=== PATIENT | male | born 1945 | race Caucasian/White ===

== ENCOUNTER → 2017-08-12 10:34 | Outpatient (CLI) | payer MEDICARE, OTHER, SELFPAY ==
[2017-08-12 10:45] LABS: Squamous Epithelial Cells - UA 0 SEEN /hpf (0-5); White Blood Cells 0 SEEN /hpf (0-5)
--- NOTE | 2017-08-12 10:53 | RAD_ITS ---
STUDY: X-RAY CHEST REASON FOR EXAM: Male, 71 years old. Shortness of breath TECHNIQUE: PA and lateral views of the chest. COMPARISON: Previous study of December 24, 2016 FINDINGS: The left hemidiaphragm is elevated. The lungs are clear. There is no demonstrated pleural abnormality. Normal size heart. Normal mediastinum and itzel. Normal visualized pulmonary arteries. There are calcified plaques of the aortic arch. Normal visualized thoracic spine. Normal visualized ribs, clavicles, and shoulders. There is no demonstrated abnormality of the visualized soft tissue structures of the upper abdomen. RAD/Chest PA and Lateral IMPRESSION: Elevated left hemidiaphragm. Calcified plaques of the aortic arch. No acute cardiopulmonary disease process is seen. Chest findings are stable in the interval. Electronically Signed: Salbador Mcmullen MD at 19:22 EDT , Service support ,
[2017-08-12 12:03] LABS: Absolute Lymphocyte Count 2.92 X10^3/ul (0.83-4.51); Absolute Neutrophil Count 2.6 X10^3/uL (2.0-7.7); Basophil# 0.02 X10^3/uL; Basophil% 0.3 % (0-1); Eosinophil# 0.09 X10^3/uL; Eosinophils% 1.5 % (0-5); Hematocrit 41.7 % (40-54); Hemoglobin 13.5 g/dl (13.0-16.5); Lymphocyte # 2.92 X10^3/ul (4.0); Lymphocyte % 47.8 % (19-41); Mean Corp Hgb Conc 32.4 g/gl (32-36); Mean Corpuscular Hgb 31.8 pg (27.0-32.0); Mean Corpuscular Volume 98.3 fL (80-94); Mean Platelet Vol. 10.3 fl (6.2-12.0); Monocyte# 0.46 X10^3/uL; Monocyte% 7.5 % (0-10); Neutrophil # 2.61 X10^3/uL (2.7-7.7); Neutrophil % 42.7 % (47-70); Platelet Count 219 K/mm3 (150-450); RBC Distribution Width SD 46.6 fl (35.1-43.9); Red Blood Count 4.24 M/mm3 (4.6-6.2); White Blood Count 6.1 K/mm3 (4.4-11.0)
[2017-08-12 12:05] LABS: POSITIVE COUNT NO; POSITIVE DIFFERENTIAL NO; POSITIVE MORPHOLOGY NO
[2017-08-12 12:36] LABS: Color, Urine Yellow (Yellow); Glucose, Dipstick Normal (Normal); Ketone-Dipstick Negative (Negative); Leukocyte Esterase-Dipstick Negative /ul (Negative); Nitrite-Dipstick Negative (Negative); Occult Blood-Urine 10 /ul (Negative); Protein-Dipstick 30 mg/dl (Negative); Urine Bilirubin Dipstick Negative (Negative); Urine Clarity Sl. Cloudy (Clear); Urine Urobilinogen Normal (Normal)
[2017-08-12 12:41] LABS: AST(SGOT) 39 U/L (15-37); Alanine Aminotransfer ALT/SGPT 38 U/L (16-61); Albumin, Serum 3.8 g/dL (3.2-5.0); Alkaline Phosphatase 77 U/L (45-117); Anion Gap 9 (5-15); BUN 25 mg/dL (7-18); BUN/Creat Ratio 23.6 RATIO (10-20); Calcium,Total 8.5 mg/dL (8.5-10.1); Chloride 109 mmol/L (98-107); Cholesterol 198 mg/dL (200); Creatinine, Serum 1.06 mg/dL (0.70-1.30); EST Glomerular Filtration Rate 74 mL/min (>60); Est Glom Filt Rate - Afr Amer 89 mL/min (>60); Globulin 3.9 g/dL (2.2-4.2); Glucose 95 mg/dL (74-106); High Density Lipoprotein 46 mg/dL; Magnesium 2.4 mg/dL (1.6-2.6); Potassium 3.8 mmol/L (3.5-5.1); Protein, Total 7.7 g/dL (6.4-8.2); Sodium Level 141 mmol/L (136-145); Triglycerides 77 mg/dL; Very Low Density Lipoprotein 15 mg/dL (5-40)
[2017-08-12 12:56] LABS: Red Blood Cells-Urine 0-5 SEEN /hpf (0-5)
[2017-08-12 12:57] LABS: Bacteria RARE /hpf (None Seen); Hyaline Cast 0-5 SEEN /lpf (0-5); Mucous, Urine 1+ /hpf (<or=2+)
[2017-08-13 09:26] LABS: T4 Free Direct 0.89 ng/dL (0.76-1.46)
[2017-08-16 17:35] LABS: Anti-Thyroglobulin AB < 1.0 IU/mL (0.0-0.9); Thyroglobulin, Serum Qt. 19.5 ng/mL (1.4-29.2); Thyroid Peroxidase AB 20 IU/mL (0-34)
== END ==
PROVIDERS: Family Provider Family Medicine; PCP Family Medicine; Visit Provider Family Medicine
DX: R07.9 Chest pain, unspecified (principal); R06.02 Shortness of breath; R94.31 Abnormal electrocardiogram [ECG] [EKG]
CPT/HCPCS: 36415; 71046; 80053; 80061; 81001; 83735; 84432; 84439; 84443; 85025; 86376; 86800

== ENCOUNTER 2017-08-19 06:41 | Day surgery (SDC) | payer MEDICARE, OTHER, SELFPAY ==
[2017-08-19 06:39] VITALS: BMI 29.0
--- NOTE | 2017-08-19 08:05 | CL.D_ITS ---
Patient Name: SILVIA URIBE Study Date: 08/19/2017 Performing: Dougie Mary MD Ht: 68.89 inches 175 cm : 1945 Wt: 196.21 lbs 89 kg Age: 71 Gender: male BSA: 2.05 PROCEDURE(S) PERFORMED FE13-KSL/COR/LV CLINICAL PROFILE AND INDICATIONS Indications: Suspected CAD Heart Failure: None Stress/Imaging Stress/Image Study Performed: No CAD Presentations: Symptom unlikely to be ischemic. CONCLUSIONS Normal coronary arteries Normal LV size, wall motion,and systolic function RECOMMENDATIONS Medical therapy Echo to asses valve. DESCRIPTION OF PROCEDURE The patient arrived to the procedure lab. The risks and benefits of the procedure as well as a full d escription of our services here and current unavailability of surgical backup were fully explained to the patient and/or their significant other prior to the catheterization. The Timeout was completed, verifying the correct patient and procedure. The patient's procedural site was prepped and draped in the usual fashion. Local anesthetic was given subcutaneously to right radial region with Lidocaine 2% . Using a modified Seldinger technique, arterial access was obtained via the right radial artery, a 6 Fr sheath was inserted. Right Coronary Artery selective angiography was then performed in multiple v iews using a 5 Fr. 4.0 Gary catheter. Left Coronary Artery selective angiography was performed in mu ltiple views using a 5 Fr. JL3.5 catheter. Left Ventriculography was performed in EARL projection usin g a 5 Fr. Pigtail catheter. LV to AO pullback pressures were then recorded.The arterial sheath was pu lled and a TR Band was applied for hemostasis 18 cc's of air CORONARY ANGIOGRAPHY DOMINANCE: Right Dominant LEFT HEART ASSESSMENT Left Ventricular Ejection Fraction: by LV Gram 60 % Normal LV wall motion Normal Left Ventricular systolic function Normal Left Ventricular systolic function LEFT MAIN: Angiographically normal LEFT ANTERIOR DECENDING ARTERY: Angiographically normal CIRCUMFLEX ARTERY: Angiographically normal RIGHT CORONARY ARTERY: Angiographically normal COMPLICATIONS No Complications PROCEDURE MEDICATIONS Versed 1 mg IV Fentanyl 50 mcg IV Oxygen: 2 L/min via nasal cannula Heparin diluted in 23cc Heparinized saline. Patient given 10cc IA of this solution. 08/19/2017 07:34: 46 Verapamil 2.5mg, Ntg 100mcgs, 2000 units of Heparin diluted in 23cc Heparinized saline. Patient give n 10cc IA of this solution. 08/19/2017 07:34:46 SUMMARY OF HEMODYNAMIC DATA Time AIR REST ECG 07:01:57 AO 85/57 (69) SA 07:38:38 AO 92/63 (76) 07:38:58 LV 109/7, 17 07:51:40 LV 113/7, 22 07:51:49 LV 110/6, 21 07:53:23 LV 110/6, 23 07:53:30 LVp 108/5, 20 07:53:35 AOp 115/65 (88) 07:53:40 Signed By Dougie Mary MD On 08/19/2017 08:04:15 Dougie Mary MD
--- NOTE | 2017-08-19 08:28 | ECHOCS_ITS ---
Reason For Study: ABNORMAL EKG Procedure This was a 2D Doppler, Color Flow transthoracic echocardiogram. The study was technically difficult. Exam performed in department. Left Ventricle Normal LV size. Left ventricular systolic function is normal. The estimated ejection fraction is 65 %. No evidence for diastolic dysfunction. No regional wall motion abnormalities noted. Right Ventricle Normal RV size. Normal systolic function. Atria Normal left atrium. Normal right atrium. Mitral Valve Normal mitral valve. Tricuspid Valve Normal tricuspid valve. Aortic Valve The aortic valve is not well visualized. Pulmonic Valve The pulmonic valve is not well visualized. Great Vessels Normal aortic root. The pulmonary artery is normal size. Normal inferior vena cava. Pericardium/Pleural No pericardial effusion. Medication Diluted definity 3.5ml given slow IV push to enhance endocardial definition. MMode/2D Measurements & Calculations LVIDd: 3.9 cm IVSd: 1.0 cm Ao root diam: 3.6 cm LVIDs: 3.0 cm LVPWd: 1.1 cm LA dimension: 2.2 cm FS: 23.8 % LAV(MOD-bp): 26.6 ml LAV(MOD-bp) Indexed: 13.2 ml/m2 LA A4 area: 11.3 cm2 LAV(MOD-sp2): 28.0 ml LAV(MOD-sp4): 24.0 ml Time Measurements MV dec time: 0.18 sec Doppler Measurements & Calculations MV E max jona: 92.2 cm/sec Lat Peak E' Jona: 10.2 cm/sec Med Peak E' Jona: 11.3 cm/sec MV A max jona: 74.0 cm/sec E/E' lat: 9.0 E/E' med: 8.2 MV E/A: 1.2 Ao V2 max: 114.3 cm/sec LV V1 max: 100.4 cm/sec PA V2 max: 109.3 cm/sec Ao max P.2 mmHg LV V1 max P.0 mmHg Interpretation Summary Normal LV size. Left ventricular systolic function is normal. The estimated ejection fraction is 65 %. No evidence for diastolic dysfunction. Contrast injection was performed. Ordering Physician: Dougie Mary Referring Physician: DELMA BLAND Performed By: Briana Mott RDCS
== END 2017-08-19 12:00 | disposition home or self-care (01) ==
PROVIDERS: Family Provider Family Medicine; PCP Family Medicine; Visit Provider Internal Medicine Cardiovascular Disease
DX: R07.9 Chest pain, unspecified (principal); R06.02 Shortness of breath; E03.9 Hypothyroidism, unspecified; M54.9 Dorsalgia, unspecified; G89.29 Other chronic pain; Z79.82 Long term (current) use of aspirin; Z79.899 Other long term (current) drug therapy; Z87.891 Personal history of nicotine dependence
CPT/HCPCS: 93306; 93458; 99152; 99153; J7040; Q9957; A4216; C1769; C1894; C8929

== ENCOUNTER → 2017-08-31 11:29 | Outpatient (CLI) | payer MEDICARE, OTHER, SELFPAY ==
[2017-08-31 15:56] LABS: AST(SGOT) 26 U/L (15-37); Alanine Aminotransfer ALT/SGPT 27 U/L (16-61); Albumin, Serum 3.8 g/dL (3.2-5.0); Alkaline Phosphatase 68 U/L (45-117); Bilirubin, Direct 0.07 mg/dL (0.00-0.30); Globulin 3.4 g/dL (2.2-4.2); Protein, Total 7.2 g/dL (6.4-8.2)
[2017-09-02 08:10] LABS: HEPATITIS B SURFACE AG Negative (Negative); Hep B Surface Antibodies Non Reactive (.); Hep C Antibodies 0.1 s/co ratio (0.0-0.9)
== END ==
PROVIDERS: Family Provider Family Medicine; PCP Family Medicine; Visit Provider Family Medicine
DX: E03.9 Hypothyroidism, unspecified (principal); R94.5 Abnormal results of liver function studies
CPT/HCPCS: 36415; 80076; 84443; 86706; 86803; 87340

== ENCOUNTER 2017-09-08 15:52 | Emergency (ER) | payer MEDICARE, OTHER, SELFPAY ==
[2017-09-08 15:53] VITALS: BP 144/78; PULSE 88; RESP 18; TEMP 36.3; O2SAT 96; BMI 28.5
[2017-09-08] MEDS: morphine 10 MG/ML Syringe IM (16:27)
--- NOTE | 2017-09-08 16:28 | ED.DCSUM_ITS ---
- ER Visit Summary Date of Service: 09/08/17 Chief Complaint: Back pain History of Present Illness: The patient is a 71 M with a 1-1/2-2 week history of mild left low back strain. Patient states he had been doing a lot of yard work. He has a history of L5-S1 fusion. Yesterday he felt better so he was working on a ladder for several hours. Patient states last evening pain worsened and he had difficulty finding a position of comfort. He will get occasional radiation of pain down into the left groin. He has increased pain when he flexes his left hip. He denies paresthesias. Patient takes Flexeril 3 times daily as needed. He has been taking that since last evening and also took one half doses of hydrocodone 10 mg in the last 24 hours. This was left over from a prior prescription and is not sure how old the prescription may be. He had no direct injury to his back. He denies problems with bowel or bladder control. He does not have paresthesias. Physical Examination: Vital signs are unremarkable. Patient is standing upright in the room. He appears uncomfortable but no acute distress. Head neck examination unremarkable. Heart is regular rate and rhythm. Lung sounds are clear. Abdomen is soft and nontender. Do not appreciate any masses. Back examination reveals reproducible tenderness in the left lower lumbar paraspinals. He does have good strength and sensation the lower extremities. He is able to stand on his toes and heels. Test Results: [] Emergency Department Course and Treatment:Patient is given 10 mg of IM morphine. After 25 minutes patient states he started to feel some improvement. He still has significant pain when he tries to sit. He will be given a new prescription for Flexeril as he only has a few tabs left. He will be given a prescription for Percocet. He has an allergy to naproxen but states he can take aspirin. He will continue this at home. Treatment Plan: [] Disposition: Discharge Impression: Lumbar paraspinal strain with spasm This note was generated with [employer] dictation software. It may contain incorrect words, spelling, and punctuation that were not noted in review of the chart prior to signing ED Disposition - Plan for ED Patient: Chief Complaint: Back Referrals: Edu Glover MD [Primary Care Provider] -
--- NOTE | 2017-09-08 16:54 | ED.DEP ---
ED Disposition - Plan for ED Patient: Disposition: Home or Assisted Living Chief Complaint: Back Instructions: ED Spasm Back No Trauma, ED Sprain Strain Lumbar Prescriptions: Oxycodone HCl/Acetaminophen [Percocet 5/325] 1 tablet PO Q4H PRN PRN 5 Days #20 tablet PRN Reason: Pain Cyclobenzaprine [Flexeril] 0.5 - 1 tab PO TID PRN #20 tab PRN Reason: Muscle Spasm Referrals: Edu Glover MD [Primary Care Provider] - 5-7 Days
[2017-09-08 17:22] VITALS: BP 117/80; PULSE 74; RESP 12; O2SAT 95
== END 2017-09-08 17:24 | disposition home or self-care (01) ==
PROVIDERS: Emergency Provider Emergency Medicine; Family Provider Family Medicine; PCP Family Medicine
DX: S39.012A Strain of muscle, fascia and tendon of lower back, initial encounter (principal); M62.830 Muscle spasm of back; X58.XXXA Exposure to other specified factors, initial encounter; Y93.H2 Activity, gardening and landscaping; Y92.9 Unspecified place or not applicable; Y99.9 Unspecified external cause status; Z79.82 Long term (current) use of aspirin; Z79.899 Other long term (current) drug therapy
CPT/HCPCS: 96372; 99282

== ENCOUNTER → 2017-09-14 12:13 | Outpatient (CLI) | payer MEDICARE, OTHER, SELFPAY ==
--- NOTE | 2017-09-14 12:16 | RAD_ITS ---
STUDY: X-RAY - LUMBAR SPINE REASON FOR EXAM: Male, 71 years old. Low back pain TECHNIQUE: 5 view(s) of the lumbar spine were obtained. COMPARISON: None FINDINGS: There is an exaggerated lumbar lordosis. There is no substantial scoliosis. There is a normal alignment of the vertebrae. There is multilevel endplate spondylosis of the lumbar vertebrae. Posterior fusion with artificial intervertebral disc spacer at L5-S1. There is no demonstrated fracture. There is atherosclerotic calcification of the abdominal aorta without a demonstrated aneurysm. RAD/L/S Spine Min 4 Views IMPRESSION: Degenerative changes and postsurgical changes. No acute findings Electronically Signed: Thierry Nj DO at 12:35 EDT Tel , Service support ,
== END ==
PROVIDERS: Family Provider Family Medicine; PCP Family Medicine; Visit Provider Family Medicine
DX: M54.10 Radiculopathy, site unspecified (principal)
CPT/HCPCS: 72110

== ENCOUNTER → 2017-09-16 06:22 | Outpatient (CLI) | payer MEDICARE, OTHER, SELFPAY ==
--- NOTE | 2017-09-16 06:34 | MRI_ITS ---
STUDY: MRI LUMBAR SPINE WITHOUT CONTRAST REASON FOR EXAM: Male, 71 years old. radicular pain, left leg pain, prior surgery 2006 anterior Tamp; posterior fusion TECHNIQUE: Standardized fat and water weighted pulse sequences were obtained in the sagittal and axial planes. COMPARISON: None FINDINGS: T12-L1: Normal endplates. Normal disc height, hydration and morphology. Normal bilateral facet joints. Normal central canal and bilateral lateral recesses. Normal bilateral intervertebral neural foramina. Normal lumbar lordosis. There is no substantial scoliosis. Normal conus medullaris that terminates at the T12-L1 level. Bilateral posterior pedicle fusions at L5 and S1. The L5-S1 disc space has been fused. L1-2: Normal endplates. Normal disc height, hydration and morphology. Normal bilateral facet joints. Normal central canal and bilateral lateral recesses. Normal bilateral intervertebral neural foramina. L2-3: A left subarticular caudally migrating disc extrusion is present that measures 2 cm craniocaudal by 1.2 cm wide by 0.7 cm anteroposterior. This is associated with significant lateral recess stenosis at the L3 level. There is mass effect on the transiting left L3 nerve root. Bulging annulus with mild bilateral foraminal stenoses. L3-4: Bulging annulus and bilateral facet and ligamentum flavum hypertrophy with mild left lateral recess stenosis and bilateral foraminal stenoses. L4-5: Central annular fissure and bilateral facet hypertrophy with moderate right and mild left foraminal stenoses. L5-S1: No significant residual compressive sequelae is seen. Normal visualized sacral ala. Normal visualized paraspinous soft tissue structures. Right renal cyst. MRI/Spine Lumbar (Routine) IMPRESSION: Multiple degenerative and postoperative changes as described. L2-3, a disc extrusion is present on the left with mass effect on the transiting left L3 nerve root. Electronically Signed: Joe Whitten MD at 7:38 EDT Tel , Service support ,
== END ==
PROVIDERS: Family Provider Family Medicine; PCP Family Medicine; Visit Provider Family Medicine
DX: M54.10 Radiculopathy, site unspecified (principal)
CPT/HCPCS: 72148

== ENCOUNTER → 2017-10-11 13:11 | Outpatient (CLI) | payer MEDICARE, OTHER, SELFPAY ==
[2017-10-11 14:28] LABS: T4 Total, Thyroxin 13.2 ug/dL (4.5-12.1); Thyroid Stim Hormone (TSH) 3.61 uIU/mL (0.358-3.74)
== END ==
PROVIDERS: Family Provider Family Medicine; PCP Family Medicine; Visit Provider Family Medicine
DX: E03.9 Hypothyroidism, unspecified (principal)
CPT/HCPCS: 36415; 84436; 84443

== ENCOUNTER 2017-11-05 12:41 | Day surgery (SDC) | payer MEDICARE, OTHER, SELFPAY ==
[2017-11-05] VITALS (7 sets, daily range): BP systolic 105–127; BP diastolic 48–89; PULSE 71–86; RESP 14–16; TEMP 36.2–36.4; O2SAT 96–99; BMI 27.6
[2017-11-05] MEDS: Triamcinolone Acetonide 40 MG/ML Vial (13:31)
--- NOTE | 2017-11-05 13:45 | RAD_ITS ---
STUDY: X-RAY - LUMBAR SPINE REASON FOR EXAM: Male, 71 years old. Transforaminal block on the left at L2-3 and L3-4 TECHNIQUE: 7 fluoroscopic spot view(s) of the lumbar spine were obtained. 32.8 seconds fluoroscopy time. COMPARISON: None FINDINGS: 2 spinal needles are noted at 2 levels unilaterally. RAD/Lumbar Spine 2 or 3 Views IMPRESSION: Please correlate with clinical service. Electronically Signed: Jordon Linton MD at 18:20 EDT , Service support ,
--- NOTE | 2017-11-05 14:32 | DCINST_ITS ---
- Discharge Diagnoses Current Active Problems: Lower back pain and lumbar radiculopathy Postlaminectomy syndrome lumbar region Reason(s) for Visit for Discharge Instructions: Left L2-3 and L3-4 lumbar transforaminal/selective nerve root block injection under fluoroscopy guidance You will use the following diet at home:: No restrictions Your food should be the consistency of: Regular Discharge Activity: Return to Normal Activity Call your doctor if your incision/area has: Continuous Slow Oozing, Sudden Increased Bleeding, Increased Pain/ Swelling, Swelling at the incision site Call your doctor if you observe: Uncontrolled pain Suture Line Care: Avoid Pulling/Pushing, Avoid Pinching/Bending Cleanse incision/area with: Soap & Water Allergies/Adverse Reactions: Allergies naproxen [From Naprosyn] Adverse Reaction (Verified 11/04/17 09:44) agitation decongest Adverse Reaction (Uncoded 11/04/17 09:44) unknown Medications to take at Discharge aspirin 81 mg tablet,delayed release 81 mg PO QDAY 08/18/17 cyclobenzaprine 5 mg tablet 5 mg PO TID PRN 08/18/17 RX: Levothyroxine [Synthroid] 75 mcg PO DAILY 09/08/17 Celecoxib [Celebrex] 100 mg PO BID 11/04/17 Fluticasone 0.05% [Flonase Nasal [place]] 1 spray NASAL DAILY 11/04/17 Primary Care Physician: Edu Glover MD [Primary Care Provider] - Test Results: Test results from this visit will be discussed in further detail at your follow- up appointment, if applicable. Please Follow Up With: Clint Klein MD
--- NOTE | 2017-11-05 14:32 | PCM.OPRPT ---
Problem List (1) Postlaminectomy syndrome, not elsewhere classified Status: Acute (2) Postlaminectomy syndrome, not elsewhere classified Status: Acute (3) Radiculopathy of lumbar region Status: Acute (4) Radiculopathy of lumbar region Status: Acute (5) Intervertebral disc disorder with radiculopathy of lumbar region Status: Acute (6) Intervertebral disc disorder with radiculopathy of lumbar region Status: Acute Report of Operation Date of Procedure: 11/05/17 Pre-Operative Diagnosis: Lumbar radiculopathy. Lumbar disc displacement and foraminal stenosis. Lumbar postlaminectomy syndrome Post-Operative Diagnosis: Same Surgery/Procedure Performed:: Left side L2-3 and L3-4 lumbar transforaminal epidural steroid injection under fluoroscopy/selective nerve root at 2 levels L2-3 and L3-4 on the left side Description of Surgical Findings:: Under sterile conditions. Patient placed in the prone position, pressure points were padded, patient was ready from the nursing and the anesthesia team. After identification of the side and the target area for the block under guided fluoroscopy, the entry site was marked with marking pen. I used Betadine for sterilization of the skin, sterile draping were applied. Using 25-gauge needle to infiltrate the skin with local anesthesia using preservative-free lidocaine 0.5% injected 2.5 mL at site of entry. Using guided fluoroscopy, accessed the the lateral foraminal epidural space using 22-gauge spinal needles under lateral oblique fluoroscopy approach, accessed the site was assisted with lateral and AP fluoroscopy, followed by using [id number] technique using preservative-free normal saline, negative aspiration of CSF and blood. Position confirmed with injection of contrast solution and patient reported no pain on the injection time Injected contrast solution [2.5] mL under live fluoroscopy which showed good spread of the contrast to the posterior lateral foraminal epidural space and to the targeted area of the injection at left L2-3 and L3-4. Injected [2.5] mL of mixture of preservative-free lidocaine and Kenalog [40] mg each site for the procedure which showed appropriate spread in the lateral left epidural space and throughout the left L2-3 L3 IV nerve distribution. Has intact neurological function after the procedure at his baseline [place] was removed, pressure dressing were applied. Patient tolerated the procedure well and was taken to the recovery. Type of Anesthesia:: Local MAC, MAC Specimen's removed: None
--- NOTE | 2017-11-05 14:36 | OP.PCM_ITS ---
Problem List (1) Postlaminectomy syndrome, not elsewhere classified Status: Acute (2) Postlaminectomy syndrome, not elsewhere classified Status: Acute (3) Radiculopathy of lumbar region Status: Acute (4) Radiculopathy of lumbar region Status: Acute (5) Intervertebral disc disorder with radiculopathy of lumbar region Status: Acute (6) Intervertebral disc disorder with radiculopathy of lumbar region Status: Acute Report of Operation Date of Procedure: 11/05/17 Pre-Operative Diagnosis: Lumbar radiculopathy. Lumbar disc displacement and foraminal stenosis. Lumbar postlaminectomy syndrome Post-Operative Diagnosis: Same Surgery/Procedure Performed:: Left side L2-3 and L3-4 lumbar transforaminal epidural steroid injection under fluoroscopy/selective nerve root at 2 levels L2 -3 and L3-4 on the left side Description of Surgical Findings:: Under sterile conditions. Patient placed in the prone position, pressure points were padded, patient was ready from the nursing and the anesthesia team. After identification of the side and the target area for the block under guided fluoroscopy, the entry site was marked with marking pen. I used Betadine for sterilization of the skin, sterile draping were applied. Using 25-gauge needle to infiltrate the skin with local anesthesia using preservative-free lidocaine 0.5% injected 2.5 mL at site of entry. Using guided fluoroscopy, accessed the the lateral foraminal epidural space using 22-gauge spinal needles under lateral oblique fluoroscopy approach, accessed the site was assisted with lateral and AP fluoroscopy, followed by using [id number] technique using preservative-free normal saline, negative aspiration of CSF and blood. Position confirmed with injection of contrast solution and patient reported no pain on the injection time Injected contrast solution [2.5] mL under live fluoroscopy which showed good spread of the contrast to the posterior lateral foraminal epidural space and to the targeted area of the injection at left L2-3 and L3-4. Injected [2.5] mL of mixture of preservative-free lidocaine and Kenalog [40] mg each site for the procedure which showed appropriate spread in the lateral left epidural space and throughout the left L2-3 L3 IV nerve distribution. Has intact neurological function after the procedure at his baseline [place] was removed, pressure dressing were applied. Patient tolerated the procedure well and was taken to the recovery. Type of Anesthesia:: Local MAC, MAC Specimen's removed: None
== END 2017-11-05 15:24 | disposition home or self-care (01) ==
LOC: SDC 12:42 → AC 12:44
PROVIDERS: Family Provider Family Medicine; PCP Family Medicine; Visit Provider Anesthesiology
PROC: 3E0T3BZ Introduction of Anesthetic Agent into Peripheral Nerves and Plexi, Percutaneous Approach (ICD-10-PCS; CPT 64493; principal; 2017-11-05 13:40)
DX: M96.1 Postlaminectomy syndrome, not elsewhere classified (principal); M51.16 Intervertebral disc disorders with radiculopathy, lumbar region; M51.26 Other intervertebral disc displacement, lumbar region; M99.53 Intervertebral disc stenosis of neural canal of lumbar region; G89.4 Chronic pain syndrome; K44.9 Diaphragmatic hernia without obstruction or gangrene; G43.909 Migraine, unspecified, not intractable, without status migrainosus; E06.9 Thyroiditis, unspecified; Z87.442 Personal history of urinary calculi; Z79.82 Long term (current) use of aspirin; Z79.899 Other long term (current) drug therapy; Z87.891 Personal history of nicotine dependence; M54.16 Radiculopathy, lumbar region
CPT/HCPCS: 64493; 64494; 64495; 64483; 72100; J7120; J3490

== ENCOUNTER → 2018-01-11 10:53 | Outpatient (CLI) | payer MEDICARE, OTHER, SELFPAY ==
[2017-11-05 13:01] VITALS: BMI 27.6
[2018-01-11 13:14] LABS: T4 Total, Thyroxin 11.6 ug/dL (4.5-12.1); Thyroid Stim Hormone (TSH) 4.55 uIU/mL (0.358-3.74)
[2018-01-12 19:53] LABS: Anti-Thyroglobulin AB < 1.0 IU/mL (0.0-0.9); Thyroid Peroxidase AB 17 IU/mL (0-34)
== END ==
PROVIDERS: Family Provider Family Medicine; PCP Family Medicine; Visit Provider Family Medicine
DX: E03.9 Hypothyroidism, unspecified (principal)
CPT/HCPCS: 36415; 84432; 84436; 84443; 86376; 86800

== ENCOUNTER 2018-02-08 05:25 | Day surgery (SDC) | payer MEDICARE, OTHER, SELFPAY ==
[2018-02-08 05:47] VITALS: BP 118/70; PULSE 85; RESP 18; TEMP 36.8; O2SAT 93; BMI 27.7
--- NOTE | 2018-02-08 06:16 | HP.PCM_ITS ---
Problem List (1) Screening for intestinal cancer Status: Acute History of Present Illness Date of Admission: 02/08/18 The patient is a 72 year old M who presents for screening colonoscopy. He denies bright red blood per rectum or melena. He states that his father had colon polyps. He states there is no family history of colon cancer. The patient's most recent flexible sigmoidoscopy was 20 years ago. He denies abdominal pain or unexpected weight loss. He otherwise enjoys good health Past Medical History Medical History: Medical History (Last Reviewed 08/18/17 @ 09:23 by Dougie Mary MD) Chronic back pain M54.9, G89.29 Allergies naproxen [From Naprosyn] Adverse Reaction (Verified 02/08/18 05:46) agitation decongest Adverse Reaction (Uncoded 02/08/18 05:46) unknown Home Medications: Ambulatory Orders Medication Instructions Recorded cyclobenzaprine 5 mg tablet 5 mg PO TID PRN 08/18/17 Levothyroxine [Synthroid] 88 mcg PO DAILY 09/08/17 Surgical History: Surgical History (Last Updated 08/19/17 @ 09:23 by Ida Hinkle) History of left heart catheterization (Acute) Onset Date: 08/19/17 Z98.890 08/19/2017 @ [facility] per Dr. Mary: normal coronaries H/O spinal fusion Z98.1 History of arthroscopic knee surgery Z98.890 History of herniorrhaphy Z98.890, Z87.19 Smoking Status: Former smoker Tobacco Use: Non-smoker Review of Systems Constitutional: Denies: Anorexia HEENT: Denies: Difficulty Swallowing Cardiovascular: Denies: Chest Pain, Claudication Respiratory: Denies: Cough Gastrointestinal: Denies: Abdominal Pain, Hematochezia, Melena Neurological: Denies: Balance problems Endocrine: Denies: Change in Body Habitus VTE Information - Inpt Only VTE Present on Admission: No Patient Problems: Active and Suspected Problems (Last Reviewed 08/18/17 @ 09:23 by Dougie Mary MD ) Screening for intestinal cancer (Acute) - Physical Exam General: Alert, Oriented x3, Cooperative, No apparent distress HEENT: Atraumatic Oral: Moist Mucosa Neck: Supple Lungs: Clear to auscultation Cardiovascular: Regular rate, Regular Rhythm Abdomen: Bowel Sounds Present, Soft, Non Tender, Non-Distended Extremities: No clubbing, No Calf Tenderness Psych/Mental Status: Normal Affect Vital Signs Temp Pulse Resp BP Pulse Ox 98.3 F 85 18 118/70 93 02/08/18 05:47 02/08/18 05:47 02/08/18 05:47 02/08/18 05:47 02/08/18 05:47 Oxygen Delivery Method Room Air Weight: 187 lb 12.8 oz Body Mass Index (BMI) 27.7 Assessment/Plan All Active Problems (Last Reviewed 08/18/17 @ 09:23 by Dougie Mary MD) Postlaminectomy syndrome, not elsewhere classified (Acute) Postlaminectomy syndrome, not elsewhere classified (Acute) Radiculopathy of lumbar region (Acute) Radiculopathy of lumbar region (Acute) Intervertebral disc disorder with radiculopathy of lumbar region (Acute) Intervertebral disc disorder with radiculopathy of lumbar region (Acute) Screening for intestinal cancer (Acute) History of left heart catheterization (Acute 08/19/17) Elevated TSH (Acute) Chest pain on exertion (Acute) Dyspnea on exertion (Acute) I am recommended the patient is screening colonoscopy with possible biopsy or polypectomy as indicated. He is aware of the technique, benefits, risks, alternatives. He has had an opportunity to ask and have questions answered. We will proceed as noted. He presents via our open access program today. Sebatsian Mora M.D., F.A.C.S.
--- NOTE | 2018-02-08 06:30 | COLBX_PTH ---
PATIENT: SILVIA URIBE II LOC: EN U#:[id number] AGE/SX: 72/M ROOM: RE02/08/[address]: Dr. Sebastian Mora MD : 1945 BED: DIS: 02/08/2018 SPEC #: [id number] RECD: 02/08/18 09:27 STATUS: AUGUST WAGNER #: [id number] UZMA: 02/08/18 06:[address]: Sebastian Mora DEPT: SURGICAL PATHOLOGY RECD BY: Yung Hubbard ENTERED: 02/08/18 12:02 SP TYPE: COLON BX OTHR DR: Dr. Edu Glover MD Tissues: Cecum, NOS Procedures: Surgery Specimen Level IV HEADER OPERATION: Colonoscopy PRE-OP DIAGNOSIS: Screening TISSUE SUBMITTED: Cecal polyp biopsy MICROSCOPIC DIAGNOSIS Polyp cecum, biopsy: Fragments of tubular adenoma. Fragments of fecal material. SJ:leigh 02/09/18 MICROSCOPIC DESCRIPTION Slides are reviewed. GROSS DESCRIPTION Received in fixative is one container labeled with the patient's name and designated biopsy polyp cecum. The specimen consists of multiple irregular fragments of light valdivia soft tissue mixed with fecal material that in aggregate measure 0.5 x 0.5 x 0.1 cm. The specimen is totally submitted in one cassette. / SJ:leigh 02/08/18 TC:1 CPT: 78637
[2018-02-08 06:50] VITALS: BP 118/70; BP 93/64; PULSE 84; RESP 16; TEMP 35.8; O2SAT 94
--- NOTE | 2018-02-08 06:52 | OP.ENDO_ITS ---
Patient Name: Nacho Nicole Procedure Date: 02/08/2018 6:11 AM Date of : 1945 Age: 72 Procedure: Colonoscopy Indications: Screening for colorectal malignant neoplasm Providers: Sebastian Mora MD Referring MD: Sebastian Mora MD Medicines: See the Anesthesia note for documentation of the administered medications Patient Profile: Last Colonoscopy: more than 10 years ago. Complications: No immediate complications. Procedure: Pre-Anesthesia Assessment: - Prior to the procedure, a History and Physical was performed, and patient medications and allergies were reviewed. The patient's tolerance of previous anesthesia was also reviewed. The risks and benefits of the procedure and the sedation options and risks were discussed with the patient. All questions were answered, and informed consent was obtained. Prior Anticoagulants: The patient has taken no previous anticoagulant or antiplatelet agents. ASA Grade Assessment: II - A patient with mild systemic disease. After reviewing the risks and benefits, the patient was deemed in satisfactory condition to undergo the procedure. After I obtained informed consent, the scope was passed under direct vision. Throughout the procedure, the patient's blood pressure, pulse, and oxygen saturations were monitored continuously. The colonoscope was introduced through the anus and advanced to the cecum, identified by appendiceal orifice and ileocecal valve. The colonoscopy was performed without difficulty. The patient tolerated the procedure well. The quality of the bowel preparation was good. The ileocecal valve was photographed. Scope In: 6:31:24 AM Scope Withdrawal Time 0 hours 10 minutes 55 seconds Scope Out: 6:46:59 AM Total Procedure Duration Time 0 hours 15 minutes 35 seconds Findings: The digital rectal exam findings include internal hemorrhoids that prolapse with straining, but spontaneously regress to the resting position (Grade II) and prostate nodule. A 6 mm polyp was found in the cecum. The polyp was sessile. The polyp was removed with a cold biopsy forceps. Resection and retrieval were complete. Scattered diverticula were found in the sigmoid colon. Impression: - Internal hemorrhoids that prolapse with straining, but spontaneously regress to the resting position (Grade II) and a prostate nodule found on digital rectal exam. Slight nodule on right prostate. Will recommend primary care follow up - One 6 mm polyp in the cecum, removed with a cold biopsy forceps. Resected and retrieved. - Diverticulosis in the sigmoid colon. Recommendation: - Discharge patient to home. - Resume previous diet. - Continue present medications. - Telephone my office for pathology results in 1 week. - Repeat colonoscopy in 3 years for surveillance based on pathology results. Procedure Code(s): --- Professional --- 17629, Colonoscopy, flexible; with biopsy, single or multiple Diagnosis Code(s): --- Professional --- Z12.11, Encounter for screening for malignant neoplasm of colon N40.2, Nodular prostate without lower urinary tract symptoms D12.0, Benign neoplasm of cecum K64.1, Second degree hemorrhoids K57.30, Diverticulosis of large intestine without perforation or abscess without bleeding CPT copyright 2017 [employer]. All rights reserved. The codes documented in this report are preliminary and upon flight technician review may be revised to meet current compliance requirements. Sebastian Mora MD 02/08/2018 6:52:07 AM This report has been signed electronically. Number of Addenda: 0 Note Initiated On: 02/08/2018 6:11 AM
[2018-02-08 06:55] VITALS: BP 118/70; BP 84/55; PULSE 80; RESP 16; O2SAT 97
[2018-02-08 07:00] VITALS: BP 118/70; BP 98/71; PULSE 84; RESP 16; O2SAT 96
[2018-02-08 07:06] VITALS: BP 105/76; BP 118/70; PULSE 85; RESP 16; TEMP 35.9; O2SAT 97
[2018-02-08 07:14] VITALS: BP 118/70
--- OUTSIDE RECORDS SUMMARY | 2018-05-12 11:14 | XMS RPT_ITS ---
:1945 Author Organization [facility] Support Name Relationship Address Phone NICOLE, EVALYNE Unavailable [address] + [place] [address] R Unavailable Unavailable Unavailable NICOLE, EVALYNE Unavailable [address] + [place] [address] R Unavailable Unavailable Unavailable NICOLE, EVALYNE Unavailable [address] + [place] [address] R Unavailable Unavailable Unavailable NICOLE, EVALYNE Unavailable [address] + [place] [address] R Unavailable Unavailable Unavailable NICOLE, EVALYNE Unavailable [address] + [place] [address] R Unavailable Unavailable Unavailable NICOLE, EVALYNE Unavailable [address] + [place] [address] R Unavailable Unavailable Unavailable NICOLE, EVALYNE Unavailable [address] + [place] [address] R Unavailable Unavailable Unavailable NICOLE, EVALYNE Unavailable [address] + [place] [address] R Unavailable Unavailable Unavailable NICOLE, EVALYNE Unavailable [address] + [place] [address] R Unavailable Unavailable Unavailable NICOLE, EVALYNE Unavailable [address] + [place] [address] R Unavailable Unavailable Unavailable NICOLE, EVALYNE Unavailable [address] + [place] [address] R Unavailable Unavailable Unavailable NICOLE, EVALYNE Unavailable [address] + [place] [address] R Unavailable Unavailable Unavailable NICOLE, EVALYNE Unavailable [address] + [place] [address] R Unavailable Unavailable Unavailable NICOLE, EVALYNE Unavailable [address] + [place] [address] R Unavailable Unavailable Unavailable NICOLE, EVALYNE Unavailable [address] + [place] [address] R Unavailable Unavailable Unavailable NICOLE, EVALYNE Unavailable [address] + [place] [address] R Unavailable Unavailable Unavailable Care Team Providers Name Role Phone Sebastian Mora Attending Unavailable Sebastian Mora Referring Unavailable Delma Bland Primary Care Unavailable Sebastian Mora Consulting Unavailable Delma Sainz Attending Unavailable Delma Bland Referring Unavailable Delma Bland Attending Unavailable Delma Bland Primary Care Unavailable Delma Bland Referring Unavailable Tyra, [place] Attending Unavailable Delma Bland Referring Unavailable Delma Bland Primary Care Unavailable Tyra, Dougie Attending Unavailable Tyra, [place] Referring Unavailable Delma Bland Primary Care Unavailable Delma Bland Attending Unavailable Delma Bland Primary Care Unavailable Delma Bland Primary Care Unavailable Julia Mattson Attending Unavailable Delma Bland Attending Unavailable Delma Bland Referring Unavailable Delma Bland Primary Care Unavailable Delma Bland Attending Unavailable Delma Bland Referring Unavailable Delma Bland Primary Care Unavailable Tyra, [place] Attending Unavailable Nurse, Standard Attending Unavailable Delma Bland Referring Unavailable Delma Gonzales Unavailable Delma Gonzales Referring Unavailable Delma Bland Primary Care Unavailable Latoya, Clint Attending Unavailable Clint Klein Referring Unavailable Delma Bland Primary Care Unavailable Delma Bland Attending Unavailable Delma Bland Primary Care Unavailable Nurse, Standard Attending Unavailable Delma Bland Referring Unavailable Sebastian Mora Attending Unavailable Sebastian Mora Referring Unavailable Delma Bland Primary Care Unavailable PROBLEMS PROBLEMS DATE TYPE CONDITION / CODE ATTENDING STATUS SOURCE 09/14/2017 Unknown M54.10 - Delma Bland Active [place] Radiculopathy, site [facility] unspecified / Hospital M54.10(ICD-10) Repository 09/08/2017 Unknown S39.012A - Strain of Mattson, Active [place] muscle, fascia and [facility] tendon of lower back, Hospital initial encounter / Repository S39.012A(ICD-10) 08/18/2017 Unknown R07.9 - Chest pain, Tyra, Dougie Active [place] unspecified / Community R07.9(ICD-10) Hospital Repository 08/18/2017 Unknown R79.89 - Other Tyra, [place] Active [place] specified abnormal Community findings of blood Hospital chemistry / Repository R79.89(ICD-10) 08/12/2017 Unknown 786.50 - Chest pain, Delma Bland Active [place] unspecified / E Community 786.50(ICD-9) Hospital Repository 08/12/2017 Unknown R06.02 - Shortness of Delma Bland Active [place] breath / E Community R06.02(ICD-10) Hospital Repository 08/12/2017 Unknown 786.05 - Shortness of Delma Bland Active [place] breath / 786.05(ICD-9) E [facility] Hospital Repository 08/12/2017 Unknown R94.31 - Abnormal Delma Bland [place] electrocardiogram E Community [ECG] [EKG] / Hospital R94.31(ICD-10) Repository 08/12/2017 Unknown 794.31 - Nonspecific Delma Bland Active [place] abnormal E [facility] electrocardiogram Hospital [ECG] [EKG] / Repository 794.31(ICD-9) PROCEDURES PROCEDURES No Procedure Records FoundRESULTS RESULTS OPERATIVE REPORT - Observed: 02/08/2018 Status: F Source: [place] ENDOSCOPY 6:52 AM [facility] REPOSITORY [facility] Medical Records Department [address] [place] [address] Operative Report - Endoscopy MR#: [id number] Acct: [id number] Name: SILVIA NICOLE II Rep #: [id number] : 1945 72 From: Sebastain Mora MD PCP: Delma Bland MD Status: REG [facility] Patient Name: Silvia Nicole Procedure Date: 02/08/2018 6:11 AM Date of : 1945 Age: 72 Procedure: Colonoscopy Indications: Screening for colorectal malignant neoplasm Providers: Sebastian Mora MD Referring MD: Sebastian Mora MD Medicines: See the Anesthesia note for documentation of the administered medications Patient Profile: Last Colonoscopy: more than 10 years ago. Complications: No immediate complications. Procedure: Pre-Anesthesia Assessment: - Prior to the procedure, a History and Physical was performed, and patient medications and allergies were reviewed. The patient's tolerance of previous anesthesia was also reviewed. The risks and benefits of the procedure and the sedation options and risks were discussed with the patient. All questions were answered, and informed consent was obtained. Prior Anticoagulants: The patient has taken no previous anticoagulant or antiplatelet agents. ASA Grade Assessment: II - A patient with mild systemic disease. After reviewing the risks and benefits, the patient was deemed in satisfactory condition to undergo the procedure. After I obtained informed consent, the scope was passed under direct vision. Throughout the procedure, the patient's blood pressure, pulse, and oxygen saturations were monitored continuously. The colonoscope was introduced through the anus and advanced to the cecum, identified by appendiceal orifice and ileocecal valve. The colonoscopy was performed without difficulty. The patient tolerated the procedure well. The quality of the bowel preparation was good. The ileocecal valve was photographed. Scope In: 6:31:24 AM Scope Withdrawal Time 0 hours 10 minutes 55 seconds Scope Out: 6:46:59 AM Total Procedure Duration Time 0 hours 15 minutes 35 seconds Findings: The digital rectal exam findings include internal hemorrhoids that prolapse with straining, but spontaneously regress to the resting position (Grade II) and prostate nodule. A 6 mm polyp was found in the cecum. The polyp was sessile. The polyp was removed with a cold biopsy forceps. Resection and retrieval were complete. Scattered diverticula were found in the sigmoid colon. Impression: - Internal hemorrhoids that prolapse with straining, but spontaneously regress to the resting position (Grade II) and a prostate nodule found on digital rectal exam. Slight nodule on right prostate. Will recommend primary care follow up - One 6 mm polyp in the cecum, removed with a cold biopsy forceps. Resected and retrieved. - Diverticulosis in the sigmoid colon. Recommendation: - Discharge patient to home. - Resume previous diet. - Continue present medications. - Telephone my office for pathology results in 1 week. - Repeat colonoscopy in 3 years for surveillance based on pathology results. Procedure Code(s): --- Professional --- 45657, Colonoscopy, flexible; with biopsy, single or multiple Diagnosis Code(s): --- Professional --- Z12.11, Encounter for screening for malignant neoplasm of colon N40.2, Nodular prostate without lower urinary tract symptoms D12.0, Benign neoplasm of cecum K64.1, Second degree hemorrhoids K57.30, Diverticulosis of large intestine without perforation or abscess without bleeding CPT copyright 2017 [employer]. All rights reserved. The codes documented in this report are preliminary and upon import dispatcher review may be revised to meet current compliance requirements. Sebastian Mora MD 02/08/2018 6:52:07 AM This report has been signed electronically. Number of Addenda: 0 Note Initiated On: 02/08/2018 6:11 AM 02/08/18651 Date Sebastian Mora MD Cosigner Signature: Date (if indicated) CC: Delma Bland MD; Sebastian Mora MD Date Dictated: 02/08/18610 Date Transcribed: Aircraft Engine Dismantler: Malka Signed COLON BIOPSY (CHOOSE Observed: 02/08/2018 Status: F Source: [place] SITE) 6:30 AM [facility] REPOSITORY Patient: SILVIA NICOLE II : 1945 (72/M) Acct Num: [id number] Phys: Sebastian Mora MD Unit Num: [id number] Loc: EN Specimen: [id number] Received: 02/08/18926 Spec Type: COLON BX TISSUES 1 TISSUES: Cecum, NOS GROSS DESCRIPTION Received in fixative is one container labeled with the patient's name and designated biopsy polyp cecum. The specimen consists of multiple irregular fragments of light valdivia soft tissue mixed with fecal material that in aggregate measure 0.5 x 0.5 x 0.1 cm. The specimen is totally submitted in one cassette. / SJ:leigh 02/08/18 TC:1 CPT: 17712 HEADER OPERATION: Colonoscopy PRE-OP DIAGNOSIS: Screening TISSUE SUBMITTED: Cecal polyp biopsy MICROSCOPIC DESCRIPTION Slides are reviewed. MICROSCOPIC DIAGNOSIS Polyp cecum, biopsy: Fragments of tubular adenoma. Fragments of fecal material. SJ:leigh 02/09/18 Signed Zeus Ernandez MD 02/09/18 <signature on file> Performed By: #### PCOLBX #### [facility] [address] [place], [address] HISTORY AND PHYSICAL Observed: 02/08/2018 Status: F Source: [place] EXAM 6:16 AM [facility] REPOSITORY [facility] Medical Records Department [address] [place] [address] History and Physical 02/08/18 0614 MR#: [id number] Acct: [id number] Name: SILVIA NICOLE II Rep #: [id number] : 1945 72 From: Sebastian Mora MD PCP: Delma Bland MD Status: REG [facility] Y Location: [place] [address] Problem List (1) Screening for intestinal cancer Status: Acute History of Present Illness Date of Admission: 02/08/18 The patient is a 72 year old M who presents for screening colonoscopy. He denies bright red blood per rectum or melena. He states that his father had colon polyps. He states there is no family history of colon cancer. The patient's most recent flexible sigmoidoscopy was 20 years ago. He denies abdominal pain or unexpected weight loss. He otherwise enjoys good health Past Medical History Medical History: Medical History (Last Reviewed 08/18/17 @ 09:23 by Dougie Mary MD) Chronic back pain M54.9, G89.29 Allergies naproxen [From Naprosyn] Adverse Reaction (Verified 02/08/18 05:46) agitation decongest Adverse Reaction (Uncoded 02/08/18 05:46) unknown Home Medications: Ambulatory Orders Medication Instructions Recorded cyclobenzaprine 5 mg tablet 5 mg PO TID PRN 08/18/17 Levothyroxine [Synthroid] 88 mcg PO DAILY 09/08/17 Surgical History: Surgical History (Last Updated 08/19/17 @ 09:23 by Ida Hinkle) History of left heart catheterization (Acute) Onset Date: 08/19/17 Z98.890 08/19/2017 @ [facility] per Dr. Mary: normal coronaries H/O spinal fusion Z98.1 History of arthroscopic knee surgery Z98.890 History of herniorrhaphy Z98.890, Z87.19 Smoking Status: Former smoker Tobacco Use: Non-smoker Review of Systems Constitutional: Denies: Anorexia HEENT: Denies: Difficulty Swallowing Cardiovascular: Denies: Chest Pain, Claudication Respiratory: Denies: Cough Gastrointestinal: Denies: Abdominal Pain, Hematochezia, [place]ena Neurological: Denies: Balance problems Endocrine: Denies: Change in Body Habitus VTE Information - Inpt Only VTE Present on Admission: No Patient Problems: Active and Suspected Problems (Last Reviewed 08/18/17 @ 09:23 by Dougie Mary MD) Screening for intestinal cancer (Acute) - Physical Exam General: Alert, Oriented x3, Cooperative, No apparent distress HEENT: Atraumatic Oral: Moist Mucosa Neck: Supple Lungs: Clear to auscultation Cardiovascular: Regular rate, Regular Rhythm Abdomen: Bowel Sounds Present, Soft, Non Tender, Non-Distended Extremities: No clubbing, No Calf Tenderness Psych/Mental Status: Normal Affect Vital Signs Temp Pulse Resp BP Pulse Ox 98.3 F 85 18 118/70 93 02/08/18 05:47 02/08/18 05:47 02/08/18 05:47 02/08/18 05:47 02/08/18 05:47 Oxygen Delivery Method Room Air Weight: 187 lb 12.8 oz Body Mass Index (BMI) 27.7 Assessment/Plan All Active Problems (Last Reviewed 08/18/17 @ 09:23 by Dougie Mary MD) Postlaminectomy syndrome, not elsewhere classified (Acute) Postlaminectomy syndrome, not elsewhere classified (Acute) Radiculopathy of lumbar region (Acute) Radiculopathy of lumbar region (Acute) Intervertebral disc disorder with radiculopathy of lumbar region (Acute) Intervertebral disc disorder with radiculopathy of lumbar region (Acute) Screening for intestinal cancer (Acute) History of left heart catheterization (Acute 08/19/17) Elevated TSH (Acute) Chest pain on exertion (Acute) Dyspnea on exertion (Acute) I am recommended the patient is screening colonoscopy with possible biopsy or polypectomy as indicated. He is aware of the technique, benefits, risks, alternatives. He has had an opportunity to ask and have questions answered. We will proceed as noted. He presents via our open access program today. Sebastian Mora M.D., F.A.C.S. 02/08/18 0616 <Electronically signed by Sebastian oMra MD> Date Sebastian Mora MD Cosigner Signature: Date (if applicable) CC: Delma Bland MD; Sebastian Mora MD Signed T4 TOTAL, THYROXIN Collected: 01/11/2018 Status: F Source: [place] 10:54 AM [facility] REPOSITORY TYPE CODE TESTS RESULT OUT OF RANGE REFERENCE UNITS LAB L501.9310 4.5-12.1 ug/dL T4 Normal THYROXIN 11.6 Performed By: #### L501.9310, L501.9520 #### [facility] [address] [place], [place], [id number] THYROID STIM HORMONE Collected: 01/11/2018 Status: F Source: [place] (TSH) 10:54 AM [facility] REPOSITORY TYPE CODE TESTS RESULT OUT OF RANGE REFERENCE UNITS LAB L501.9520 0.358-3.74 uIU/mL High TSH 4.55 Performed By: #### L501.9310, L501.9520 #### [facility] [address] [place], [place], [address] THYROGLOBULIN W/ANTI-TG Collected: 01/11/2018 Status: F Source: [place] AB 10:54 AM [facility] REPOSITORY TYPE CODE TESTS RESULT OUT OF RANGE REFERENCE UNITS LAB L3300.7025 0.0-0.9 IU/mL Normal ANTI-TG < 1.0 AB Result Comment: Thyroglobulin Antibody measured by [facility] LAB L3400.1030 1.4-29.2 ng/mL Normal THYROGLOB 10.0 Result Comment: According to the National Academy [employer], the reference interval for Thyroglobulin (TG) should be related to euthyroid patients and not for patients who underwent thyroidectomy. TG reference intervals for these patients depend on the residual mass of the thyroid tissue left after surgery. Establishing a post-operative baseline is recommended. The assay limit of quantitation is 0.1 ng/mL Thyroglobulin measured by Lesia Bhanu Immunometric Assay Performed By: #### L3300.6820, L3300.6900 #### [facility] (refer to report for specific site) refer to report for address and phone number THYROID PEROXIDASE AB Collected: 01/11/2018 Status: F Source: [place] 10:54 AM [facility] REPOSITORY TYPE CODE TESTS RESULT OUT OF RANGE REFERENCE UNITS LAB L3300.6900 0-34 IU/mL Normal TPO AB 17 6676 Result Comment: Performed at: [address] [id number] Respite Worker: Mario Andrew PhD, Phone: [phone] Performed By: #### L3300.6820, L3300.6900 #### [facility] (refer to report for specific site) refer to report for address and phone number OPERATIVE REPORT Observed: 11/05/2017 Status: F Source: [place] 2:36 PM [facility] REPOSITORY [facility] Medical Records Department [address] [place] [address] Operative Report 11/05/17 1432 MR#: [id number] Acct: [id number] Name: SILVIA NICOLE SUSIE Rep #: [id number] : 1945 71 From: Clint Klein MD PCP: Delma Bland MD Status: REG [facility] Y Location: [place] [address] Problem List (1) Postlaminectomy syndrome, not elsewhere classified Status: Acute (2) Postlaminectomy syndrome, not elsewhere classified Status: Acute (3) Radiculopathy of lumbar region Status: Acute (4) Radiculopathy of lumbar region Status: Acute (5) Intervertebral disc disorder with radiculopathy of lumbar region Status: Acute (6) Intervertebral disc disorder with radiculopathy of lumbar region Status: Acute Report of Operation Date of Procedure: 11/05/17 Pre-Operative Diagnosis: Lumbar radiculopathy. Lumbar disc displacement and foraminal stenosis. Lumbar postlaminectomy syndrome Post-Operative Diagnosis: Same Surgery/Procedure Performed:: Left side L2-3 and L3-4 lumbar transforaminal epidural steroid injection under fluoroscopy/selective nerve root at 2 levels L2-3 and L3-4 on the left side Description of Surgical Findings:: Under sterile conditions. Patient placed in the prone position, pressure points were padded, patient was ready from the nursing and the anesthesia team. After identification of the side and the target area for the block under guided fluoroscopy, the entry site was marked with marking pen. I used Betadine for sterilization of the skin, sterile draping were applied. Using 25-gauge needle to infiltrate the skin with local anesthesia using preservative-free lidocaine 0.5% injected 2.5 mL at site of entry. Using guided fluoroscopy, accessed the the lateral foraminal epidural space using 22-gauge spinal needles under lateral oblique fluoroscopy approach, accessed the site was assisted with lateral and AP fluoroscopy, followed by using [id number] technique using preservative-free normal saline, negative aspiration of CSF and blood. Position confirmed with injection of contrast solution and patient reported no pain on the injection time Injected contrast solution [2.5] mL under live fluoroscopy which showed good spread of the contrast to the posterior lateral foraminal epidural space and to the targeted area of the injection at left L2-3 and L3-4. Injected [2.5] mL of mixture of preservative-free lidocaine and Kenalog [40] mg each site for the procedure which showed appropriate spread in the lateral left epidural space and throughout the left L2-3 L3 IV nerve distribution. Has intact neurological function after the procedure at his baseline Mershon was removed, pressure dressing were applied. Patient tolerated the procedure well and was taken to the recovery. Type of Anesthesia:: Local MAC, MAC Specimen's removed: None 11/05/17 2592 <Electronically signed by Clint Klein MD> Date Clint Klein MD CC: Delma Bland MD; Clint Klein M.D. Signed DISCHARGE INSTRUCTION Observed: 11/05/2017 Status: F Source: [place] 2:32 PM [facility] REPOSITORY [facility] Medical Records Department [address] [place] [address] Instructions for Home/Discharge Instructions 11/05/17 1431 MR#: [id number] Acct: [id number] Name: SILVIA NICOLE II Rep #: [id number] : 1945 71 From: Clint Klein MD PCP: Delma Bland MD Status: REG SDC - Discharge Diagnoses Current Active Problems: Lower back pain and lumbar radiculopathy Postlaminectomy syndrome lumbar region Reason(s) for Visit for Discharge Instructions: Left L2-3 and L3-4 lumbar transforaminal/selective nerve root block injection under fluoroscopy guidance You will use the following diet at home:: No restrictions Your food should be the consistency of: Regular Discharge Activity: Return to Normal Activity Call your doctor if your incision/area has: Continuous Slow Oozing, Sudden Increased Bleeding, Increased Pain/ Swelling, Swelling at the incision site Call your doctor if you observe: Uncontrolled pain Suture Line Care: Avoid Pulling/Pushing, Avoid Pinching/Bending Cleanse incision/area with: Soap AND Water Allergies/Adverse Reactions: Allergies naproxen [From Naprosyn] Adverse Reaction (Verified 11/04/17 09:44) agitation decongest Adverse Reaction (Uncoded 11/04/17 09:44) unknown Medications to take at Discharge aspirin 81 mg tablet,delayed release 81 mg PO QDAY 08/18/17 cyclobenzaprine 5 mg tablet 5 mg PO TID PRN 08/18/17 RX: Levothyroxine [Synthroid] 75 mcg PO DAILY 09/08/17 Celecoxib [Celebrex] 100 mg PO BID 11/04/17 Fluticasone 0.05% [Flonase Nasal [place]] 1 spray NASAL DAILY 11/04/17 Primary Care Physician: Delma Bland MD [Primary Care Provider] - Test Results: Test results from this visit will be discussed in further detail at your follow-up appointment, if applicable. Please Follow Up With: Clint Klein MD 11/05/17 1432 <Electronically signed by Clint Klein MD> Date Clint Klein MD CC: Delma Bland MD LUMBAR SPINE 2 OR 3 Observed: 11/05/2017 Status: F Source: [place] VIEWS 4:21 AM [facility] REPOSITORY [facility] Imaging Services [address] [place], [place] [address] [place] [address] Lumbar Spine 2 or 3 Views MR#: [id number] Acct: [id number] Name: SILVIA NICOLE II Rep #: [id number] : 1945 M 71 From: Jordon Linton MD PCP: Delma Bland MD Status: [facility] Study: Lumbar Spine 2 or 3 Views Date of Exam: 11/05/17 Exam# [id number] Ordering Dr: Clint Klein MD STUDY: X-RAY - LUMBAR SPINE REASON FOR EXAM: Male, 71 years old. Transforaminal block on the left at L2-3 and L3-4 TECHNIQUE: 7 fluoroscopic spot view(s) of the lumbar spine were obtained. 32.8 seconds fluoroscopy time. COMPARISON: None FINDINGS: 2 spinal needles are noted at 2 levels unilaterally. RAD/Lumbar Spine 2 or 3 Views IMPRESSION: Please correlate with clinical service. Electronically Signed: Jordon Linton MD at 18:20 EDT , Service support , CC: Delma Bland MD; Clint Klein M.D. Aircraft Engine Dismantler: Signed T4 TOTAL, THYROXIN Collected: 10/11/2017 Status: F Source: [place] 1:19 PM [facility] REPOSITORY Order Comment: Order Date: 10/01/17 Order Info: 3026-2 - T4 Order Info: 3016-3 - TSH TYPE CODE TESTS RESULT OUT OF REFERENCE UNITS RANGE LAB L501.9310 4.5-12.1 ug/dL T4 High THYROXIN 13.2 Performed By: #### L501.9310, L501.9520 #### [facility] [address] [place], [address] THYROID STIM HORMONE Collected: 10/11/2017 Status: F Source: [place] (TSH) 1:19 PM [facility] REPOSITORY Order Comment: Order Date: 10/01/17 Order Info: 3026-2 - T4 Order Info: 3016-3 - TSH TYPE CODE TESTS RESULT OUT OF RANGE REFERENCE UNITS LAB L501.9520 0.358-3.74 uIU/mL Normal TSH 3.61 Performed By: #### L501.9310, L501.9520 #### [facility] [address] [place], [address] SPINE LUMBAR Observed: 09/16/2017 Status: F Source: [place] (ROUTINE) 6:35 AM [facility] REPOSITORY [facility] Imaging Services [address] [place] [id number] Spine Lumbar (Routine) MR#: [id number] Acct: [id number] Name: SILVIA NICOLE II Rep #: [id number] : 1945 M 71 From: Joe Whitten MD PCP: Delma Bland MD Status: REG CLI Study: Spine Lumbar (Routine) Date of Exam: 09/16/17 Exam# [id number] Ordering Dr: Delma Bland MD STUDY: MRI LUMBAR SPINE WITHOUT CONTRAST REASON FOR EXAM: Male, 71 years old. radicular pain, left leg pain, prior surgery 2006 anterior Tamp; posterior fusion TECHNIQUE: Standardized fat and water weighted pulse sequences were obtained in the sagittal and axial planes. COMPARISON: None FINDINGS: T12-L1: Normal endplates. Normal disc height, hydration and morphology. Normal bilateral facet joints. Normal central canal and bilateral lateral recesses. Normal bilateral intervertebral neural foramina. Normal lumbar lordosis. There is no substantial scoliosis. Normal conus medullaris that terminates at the T12-L1 level. Bilateral posterior pedicle fusions at L5 and S1. The L5-S1 disc space has been fused. L1-2: Normal endplates. Normal disc height, hydration and morphology. Normal bilateral facet joints. Normal central canal and bilateral lateral recesses. Normal bilateral intervertebral neural foramina. L2-3: A left subarticular caudally migrating disc extrusion is present that measures 2 cm craniocaudal by 1.2 cm wide by 0.7 cm anteroposterior. This is associated with significant lateral recess stenosis at the L3 level. There is mass effect on the transiting left L3 nerve root. Bulging annulus with mild bilateral foraminal stenoses. L3-4: Bulging annulus and bilateral facet and ligamentum flavum hypertrophy with mild left lateral recess stenosis and bilateral foraminal stenoses. L4-5: Central annular fissure and bilateral facet hypertrophy with moderate right and mild left foraminal stenoses. L5-S1: No significant residual compressive sequelae is seen. Normal visualized sacral ala. Normal visualized paraspinous soft tissue structures. Right renal cyst. MRI/Spine Lumbar (Routine) IMPRESSION: Multiple degenerative and postoperative changes as described. L2-3, a disc extrusion is present on the left with mass effect on the transiting left L3 nerve root. Electronically Signed: Joe Whitten MD at 7:38 EDT Tel , Service support , CC: Delma Bland MD Aircraft Engine Dismantler: Signed L/S SPINE MIN 4 Observed: 09/14/2017 Status: F Source: MELROSE VIEWS 12:16 PM [facility] REPOSITORY [facility] Imaging Services [address] [place] [address] L/S Spine Min 4 Views MR#: [id number] Acct: [id number] Name: SILVIA NICOLE II Rep #: [id number] : 1945 M 71 From: Thierry Nj DO PCP: Delma Bland MD Status: REG CLI Study: L/S Spine Min 4 Views Date of Exam: 09/14/17 Exam# [id number] Ordering Dr: Delma Bland MD STUDY: X-RAY - LUMBAR SPINE REASON FOR EXAM: Male, 71 years old. Low back pain TECHNIQUE: 5 view(s) of the lumbar spine were obtained. COMPARISON: None FINDINGS: There is an exaggerated lumbar lordosis. There is no substantial scoliosis. There is a normal alignment of the vertebrae. There is multilevel endplate spondylosis of the lumbar vertebrae. Posterior fusion with artificial intervertebral disc spacer at L5-S1. There is no demonstrated fracture. There is atherosclerotic calcification of the abdominal aorta without a demonstrated aneurysm. RAD/L/S Spine Min 4 Views IMPRESSION: Degenerative changes and postsurgical changes. No acute findings Electronically Signed: Thierry Nj DO at 12:35 EDT Tel , Service support , CC: Delma Bland MD Aircraft Engine Dismantler: Signed EMERGENCY DEPARTMENT Observed: 09/09/2017 Status: F Source: MELROSE SUMMARY 10:37 AM [facility] REPOSITORY [facility] Medical Records Department [address] [place] [address] Emergency Department Summary 09/08/17 1626 MR#: [id number] Acct: [id number] Name: SILVIA NICOLE II Rep #: [id number] : 1945 71 From: Julia Mattson MD PCP: Delma Bland MD Status: DEP ER - ER Visit Summary Date of Service: 09/08/17 Chief Complaint: Back pain History of Present Illness: The patient is a 71 M with a 1-1/2-2 week history of mild left low back strain. Patient states he had been doing a lot of yard work. He has a history of L5-S1 fusion. Yesterday he felt better so he was working on a ladder for several hours. Patient states last evening pain worsened and he had difficulty finding a position of comfort. He will get occasional radiation of pain down into the left groin. He has increased pain when he flexes his left hip. He denies paresthesias. Patient takes Flexeril 3 times daily as needed. He has been taking that since last evening and also took one half doses of hydrocodone 10 mg in the last 24 hours. This was left over from a prior prescription and is not sure how old the prescription may be. He had no direct injury to his back. He denies problems with bowel or bladder control. He does not have paresthesias. Physical Examination: Vital signs are unremarkable. Patient is standing upright in the room. He appears uncomfortable but no acute distress. Head neck examination unremarkable. Heart is regular rate and rhythm. Lung sounds are clear. Abdomen is soft and nontender. Do not appreciate any masses. Back examination reveals reproducible tenderness in the left lower lumbar paraspinals. He does have good strength and sensation the lower extremities. He is able to stand on his toes and heels. Test Results: [] Emergency Department Course and Treatment:Patient is given 10 mg of IM morphine. After 25 minutes patient states he started to feel some improvement. He still has significant pain when he tries to sit. He will be given a new prescription for Flexeril as he only has a few tabs left. He will be given a prescription for Percocet. He has an allergy to naproxen but states he can take aspirin. He will continue this at home. Treatment Plan: [] Disposition: Discharge Impression: Lumbar paraspinal strain with spasm This note was generated with FRM Study Course dictation software. It may contain incorrect words, spelling, and punctuation that were not noted in review of the chart prior to signing ED Disposition - Plan for ED Patient: Chief Complaint: Back Referrals: Delma Bland MD [Primary Care Provider] - What to do if you have Problems For any increased pain, shortness of breath, bleeding, nausea or vomiting, chest pain, or any unexpected problems, contact your Primary Care Provider. Call [facility] ([phone]) or report to the closest Emergency Room. Call 911 if necessary. 09/09/17 1037 <Electronically signed by Julia Mattson MD> Date Julia Mattson MD Cosigner Signature (If Indicated): Date CC: Delma Bland MD DISCHARGE INSTRUCTION Observed: 09/08/2017 Status: F Source: MELROSE 4:57 PM [facility] REPOSITORY [facility] Medical Records Department [address] [place] [address] Discharge Instruction 09/08/171653 MR#: [id number] Acct: [id number] Name: SILVIA NICOLE II Rep #: [id number] : 1945 71 From: Julia Mattson MD PCP: Delma Bland MD Status: REG ER ED Disposition - Plan for ED Patient: Disposition: Home or Assisted Living Chief Complaint: Back Instructions: ED Spasm Back No Trauma, ED Sprain Strain Lumbar Prescriptions: Oxycodone HCl/Acetaminophen [Percocet 5/325] 1 tablet PO Q4H PRN PRN 5 Days #20 tablet PRN Reason: Pain Cyclobenzaprine [Flexeril] 0.5 - 1 tab PO TID PRN #20 tab PRN Reason: Muscle Spasm Referrals: Delma Bland MD [Primary Care Provider] - 5-7 Days What to do if you have Problems For any increased pain, shortness of breath, bleeding, nausea or vomiting, chest pain, or any unexpected problems, contact your Primary Care Provider. Call [facility] ([phone]) or report to the closest Emergency Room. Call 911 if necessary. 09/08/17 1657 <Electronically signed by Julia Mattson MD> Date Julia Andradeignkoffi Signature (If Indicated): Date CC: Delma Bland MD LIVER PROFILE Collected: 08/31/2017 Status: F Source: DANIEL 11:30 AM [facility] REPOSITORY Order Comment: Order Date: 08/31/17 Order Info: [id number] - LIVER Order Info: 3016-3 - TSH TYPE CODE TESTS RESULT OUT OF RANGE REFERENCE UNITS LAB L501.1500 6.4-8.2 g/dL Normal T PROT 7.2 LAB L501.1800 3.2-5.0 g/dL Normal ALB 3.8 LAB L501.1950 2.2-4.2 g/dL Normal GLOB 3.4 LAB L501.4100 15-37 U/L Normal AST 26 LAB L501.4305 45-117 U/L Normal ALK P 68 LAB L501.4405 16-61 U/L Normal ALT 27 LAB L501.4600 0.20-1.00 mg/dL Normal T BILI 0.30 LAB L501.4700 0.00-0.30 mg/dL Normal D BILI 0.07 Performed By: #### L500.3400 #### [facility] [address] [place] [address], [address] #### L3100.0390, L3100.0528, L3100.0625 #### [facility] (refer to report for specific site) refer to report for address and phone number HEPATITIS B SURFACE Collected: 08/31/2017 Status: F Source: DANIEL AG 11:30 AM [facility] REPOSITORY Order Comment: Order Date: 08/31/17 Order Info: [id number] - HEBSAG Order Info: [id number] - HEBSAB Order Info: 0363-1 - HECAB TYPE CODE TESTS RESULT OUT OF RANGE REFERENCE UNITS LAB L3100.0400 Negative Normal HB Negative SURF AG Result Comment: Performed at: CB - [facility] [id number] Respite Worker: Mario Andrew PhD, Phone: [phone] Performed By: #### L500.3400 #### [facility] [address] [place] [address]. [place], [address] #### L3100.0390, L3100.0528, L3100.0625 #### [facility] (refer to report for specific site) refer to report for address and phone number HEP B SURFACE Collected: 08/31/2017 Status: F Source: DANIEL ANTIBODIES 11:30 AM [facility] REPOSITORY Order Comment: Order Date: 08/31/17 Order Info: [id number] - HEBSAG Order Info: [id number] - HEBSAB Order Info: 0363-1 - HECAB TYPE CODE TESTS RESULT OUT OF RANGE REFERENCE UNITS LAB L3100.0528 . Normal Hep B Non Reactive Kathrine AB Result Comment: Non Reactive: Inconsistent with immunity, less than 10 mIU/mL Reactive: Consistent with immunity, greater than 9.9 mIU/mL Performed By: #### L500.3400 #### [facility] [address] [place] [address]. [place], [address] #### L3100.0390, L3100.0528, L3100.0625 #### [facility] (refer to report for specific site) refer to report for address and phone number HEPATITIS C ANTIBODIES Collected: 08/31/2017 Status: F Source: DANIEL 11:30 AM [facility] REPOSITORY Order Comment: Order Date: 08/31/17 Order Info: [id number] - HEBSAG Order Info: [id number] - HEBSAB Order Info: 0363-1 - HECAB TYPE CODE TESTS RESULT OUT OF RANGE REFERENCE UNITS LAB L3100.0650 0.0-0.9 s/co ratio Normal HEP C AB 0.1 Result Comment: Negative: < 0.8 Indeterminate: 0.8 - 0.9 Positive: > 0.9 The CDC recommends that a positive HCV antibody result be followed up with a HCV Nucleic Acid Amplification test (851362). Performed By: #### L500.3400 #### [facility] [address] [place], [address] #### L3100.0390, L3100.0528, L3100.0625 #### [facility] (refer to report for specific site) refer to report for address and phone number THYROID STIM HORMONE Collected: 08/31/2017 Status: F Source: MELROSE (TSH) 11:30 AM [facility] REPOSITORY Order Comment: Order Date: 08/31/17 Order Info: [id number] - LIVER Order Info: 3016-3 - TSH TYPE CODE TESTS RESULT OUT OF RANGE REFERENCE UNITS LAB L501.9520 0.358-3.74 uIU/mL High TSH 17.40 Performed By: #### L501.9520 #### [facility] [address] [place], [address] ECHO, COMPLETE W/ Observed: 08/19/2017 Status: F Source: MEL[place] CONTRAST 7:01 PM [facility] REPOSITORY [facility] Cardiovascular Services [address] [place] [address] Echo Complete W/ Contrast 08/19/17 1040 MR#: [id number] Acct: [id number] Name: SILVIA NICOLE II Rep #: [id number] : 1945 71 From: Dougie Mary MD Attending Dr: Dougie Mary MD Status: REG [facility] [place] Ordering Dr: Dougie Mary MD Date: 08/19/17 Location: [facility] Sex: M C Admitted: Reason For Study: ABNORMAL EKG Procedure This was a 2D Doppler, Color Flow transthoracic echocardiogram. The study was technically difficult. Exam performed in department. Left Ventricle Normal LV size. Left ventricular systolic function is normal. The estimated ejection fraction is 65 %. No evidence for diastolic dysfunction. No regional wall motion abnormalities noted. Right Ventricle Normal RV size. Normal systolic function. Atria Normal left atrium. Normal right atrium. Mitral Valve Normal mitral valve. Tricuspid Valve Normal tricuspid valve. Aortic Valve The aortic valve is not well visualized. Pulmonic Valve The pulmonic valve is not well visualized. Great Vessels Normal aortic root. The pulmonary artery is normal size. Normal inferior vena cava. Pericardium/Pleural No pericardial effusion. Medication Diluted definity 3.5ml given slow IV push to enhance endocardial definition. MMode/2D Measurements AND Calculations LVIDd: 3.9 cm IVSd: 1.0 cm Ao root diam: 3.6 cm LVIDs: 3.0 cm LVPWd: 1.1 cm LA dimension: 2.2 cm FS: 23.8 % LAV(MOD-bp): 26.6 ml LAV(MOD-bp) Indexed: 13.2 ml/m2 LA A4 area: 11.3 cm2 LAV(MOD-sp2): 28.0 ml LAV(MOD-sp4): 24.0 ml Time Measurements MV dec time: 0.18 sec Doppler Measurements AND Calculations MV E max jona: 92.2 cm/sec Lat Peak E' Jona: 10.2 cm/sec Med Peak E' Jona: 11.3 cm/sec MV A max jona: 74.0 cm/sec E/E' lat: 9.0 E/E' med: 8.2 MV E/A: 1.2 Ao V2 max: 114.3 cm/sec LV V1 max: 100.4 cm/sec PA V2 max: 109.3 cm/sec Ao max P.2 mmHg LV V1 max P.0 mmHg Interpretation Summary Normal LV size. Left ventricular systolic function is normal. The estimated ejection fraction is 65 %. No evidence for diastolic dysfunction. Contrast injection was performed. Ordering Physician: Dougie Mary Referring Physician: DELMA BLAND Performed By: Briana Mott RDCS 08/19/171900 Date Dougie Mary MD CC: Dougie Mary MD; Delma Bland MD Date Dictated: 08/19/17 1040 Date Transcribed: 08/19/171900 Aircraft Engine Dismantler: Signed CARDIOLOGY VISIT Observed: 08/18/2017 Status: F Source: MEL[place] REPORT 9:40 AM [facility] REPOSITORY [facility] [address] [place] [address] OFFICE VISIT Date of Service: 08/18/17 MR#: [id number] Acct: [id number] Name: SILVIA NICOLE II Rep #: [id number] : 1945 Provider: Dougie Mary MD Age/Sex: 71/M Location: [facility] Status: Signed HPI HPI Chief Complaint: Initial evaluation Details: SILVIA NICOLE, is a 71 M who presents to the office today for an initial evaluation. He is a gentleman who is been having shortness of breath for over a year he says that this has been getting worse with exertion. In addition he notices when he goes up a flight of stairs and also when he is been shoveling and feeling gravel. More recently he did experience chest discomfort associated with the shortness of breath radiating to his left side of his neck and his jaw and also his arm. There is some nausea associated with this but no vomiting. He denies any paroxysmal nocturnal dyspnea and no pedal edema. He has not been on any medications per se. He had a lipid profile done as well as blood work he was noted to be mildly hypothyroid but this has not been addressed yet. He has not had any palpitations syncope or near syncope. His physical exam today demonstrates clear lung perez, regular rate and rhythm, no carotid bruit, and no pedal edema. Electrocardiogram is pending at this time. Intake Vital Signs08/18/17 Height 5 ft 9 in 08/18/17 Weight: 197 lb 08/18/17 Body Mass Index (BMI) 29.0 08/18/17 Blood Pressure 112/62 08/18/17 Respiratory Rate 16 08/18/17 Pulse Rate 88 Intake Visit Reasons: PCP ref'd for angina, no cardiac Hx Allergies naproxen [From Naprosyn] Adverse Reaction (Verified 08/18/17 08:51) agitation decongest Adverse Reaction (Uncoded 08/18/17 08:51) unknown Medications aspirin 325 mg tablet 650 mg PO QDAY PRN tab 08/18/17 [History Confirmed 08/18/17] aspirin 81 mg tablet,delayed release 81 mg PO QDAY 08/18/17 [History Confirmed 08/18/17] cyclobenzaprine 5 mg tablet 5 mg PO TID 08/18/17 [History Confirmed 08/18/17] [facility] Medical History Chronic back pain (Chronic) Surgical History H/O spinal fusion (Chronic) History of arthroscopic knee surgery (Chronic) History of herniorrhaphy (Chronic) Family History Son Heart disease atrial fib Other Cancer Social History Smoking Status: Former smoker alcohol intake: current alcohol intake frequency: a few times a week ROS Const Const: Negative for fatigue, weakness, difficulty sleeping, frequent falls, headache(s) or excessive sweating Eyes Eyes: Negative for loss of peripheral vision, transient loss of vision, blurry vision or double vision ENT ENT: Negative for headache(s), dizziness, Nosebleed/epistaxis or balance problems Cardio Chest Pain: Yes (Midsternal chest pain radiating to left neck and some nausea) Character: tightness, squeezing Onset: exercise Location: mid sternal, other (radiating to left neck) Duration: minutes Relieving: rest Edema: None Muscle aches with walking: None Resp Respiratory: Positive for SOB with activity (New onset of dyspnea with exertion) and Cough (Chronic moist cough); negative for SOB at rest, SOB orthopnea\SOB lying down or paroxysmal nocturnal dyspnea GI GI: Negative nausea or heartburn : Negative for hematuria Musc Musc: Negative for muscle aches/ myalgia, muscle weakness, joint pain or balance problems Skin Skin: Negative non-healing lesions, unusual bruising or rash Neuro Neuro: Negative for weakness, frequent falls, blurry vision, headache(s), dizziness, lightheadedness, orthostatic symptoms or double vision [place] Hematologic/Lymphatic: Negative for easy bruising Endo Endo: Negative for fatigue, excessive sweating or increased thirst/drinking Psych Psych: Negative for anxiety or depression Allergy Allergy/Immunology: Negative for hives, Negative for rash Cardiology Exam Const Appearance: cooperative, healthy appearing, well developed, well groomed and no acute distress Nutritional Appearance: well nourished and average body habitus Orientation: alert, awake and oriented x3 Head Head: normal to inspection, normocephalic and atraumatic Ears: hearing grossly normal bilaterally and external ears normal Nose: external nose normal, nasal mucous membranes and turbinates normal, nares normal, septum normal, no nasal discharge Face and Sinus: face symmetric Mouth: oral mucosae normal, tongue normal, oropharynx normal and moist mucous membranes Teeth and gingiva: dentition normal Throat: posterior oropharynx normal, tonsils normal and uvula midline Eyes General: appearance normal, both eyes and all related structures Eyelids: eyelids normal Conjunctivae: conjunctivae normal Pupils: PERRL, normal by confrontation and accommodation normal EOM: EOM intact bilaterally Neck Neck: normal visual inspection, trachea midline and no JVD JVD: +5 Carotids: normal carotid upstroke and bounding pulses Chest Chest inspection: normal inspection of the chest, symmetric chest movement and normal respiratory effort Auscultation: Bilateral: Clear to Auscultation Cardio Palpation: normal PMI Rate: regular rate Rhythm: regular rhythm Heart sounds: S1 normal, S2 normal and normal, physiologic split S2; negative rub, gallop or murmur GI GI: normal to inspection, soft, no hepatosplenomegaly and bowel sounds present Neuro General: alert, awake, oriented x3, no focal sensory deficit, gait normal and moves all extremities Skin Skin: no rashes or lesions noted Extremities Pulses: Normal: Right Femoral Pulse, Left Femoral Pulse, Right Dorsalis Pedis Pulse, Left Dorsalis Pedis Pulse, Right Posterior Tibial Pulse, Left Posterior Tibial Pulse, Right Radial Pulse, Left Radial Pulse Lower Extremity Edema: None: Bilateral Musculoskel Musculoskeletal: No joint tenderness Psych Psychological: normal affect Assessment AND Plan 1. Chest pain on exertion R07.9 Plan He is experiencing chest pain and dyspnea on exertion which appears to be fairly classic for angina. I did discuss with him about the modalities of pursuing stress testing and or going directly to a left heart catheterization. It appears that he is in the moderate risk category and may benefit from a direct heart catheterization. The risks benefits and alternatives have been explained to him and his they understand and agree to proceed. We will try and schedule this as soon as possible. An echocardiogram should also be performed to assess his left ventricular function and measure his pulmonary pressures. I will communicate the results of his left heart catheterization to you after it is performed. 2. Elevated TSH R79.89 Plan He does appear to be mildly hypothyroid with a TSH of 13 his lipid profile consequently demonstrates a total cholesterol 198 and HDL of 46 and an LDL of 137. I would refer him back to you for addressing his TSH. Thank you for allowing me to participate in the care of your patient. 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) Coding Level of Care Code Off vis,new,level 4 Diagnoses Chest pain on exertion R07.9 Elevated TSH R79.89 Coding Level of Care Code Off vis,new,level 4 Diagnoses Chest pain on exertion R07.9 Elevated TSH R79.89 08/18/17 0940 <Electronically signed by Dougie Mary MD> Date Dougie Mary MD Cosigner Signature: Date (if applicable) CC: Delma Bland MD THYROGLOBULIN W/ANTI-TG Collected: 08/13/2017 Status: F Source: DANIEL AB 10:38 AM [facility] REPOSITORY Order Comment: PLEASE ADD ATAB TPO AND T4F TO BLOOD DONE 08/12/17 PER TYPE CODE TESTS RESULT OUT OF RANGE REFERENCE UNITS LAB L3300.7025 0.0-0.9 IU/mL Normal ANTI-TG < 1.0 AB Result Comment: Thyroglobulin Antibody measured by [facility] LAB L3400.1030 1.4-29.2 ng/mL Normal THYROGLOB 19.5 Result Comment: According to the National Academy of Clinical Biochemistry, the reference interval for Thyroglobulin (TG) should be related to euthyroid patients and not for patients who underwent thyroidectomy. TG reference intervals for these patients depend on the residual mass of the thyroid tissue left after surgery. Establishing a post-operative baseline is recommended. The assay limit of quantitation is 0.1 ng/mL Thyroglobulin measured by [facility] Performed By: #### L3300.6820, L3300.6900 #### [facility] (refer to report for specific site) refer to report for address and phone number THYROID PEROXIDASE AB Collected: 08/13/2017 Status: F Source: DANIEL 10:38 AM [facility] REPOSITORY Order Comment: PLEASE ADD ATAB TPO AND T4F TO BLOOD DONE 08/12/17 PER TYPE CODE TESTS RESULT OUT OF RANGE REFERENCE UNITS LAB L3300.6900 0-34 IU/mL Normal TPO AB 20 6676 Result Comment: Performed at: [facility] [id number] Respite Worker: Mario Andrew PhD, Phone: [phone] Performed By: #### L3300.6820, L3300.6900 #### [facility] (refer to report for specific site) refer to report for address and phone number CHEST PA AND LATERAL Observed: 08/12/2017 Status: F Source: DANIEL 10:54 AM [facility] REPOSITORY [facility] Imaging Services [address] [place], [place] [address] [address] Chest PA and Lateral MR#: [id number] Acct: [id number] Name: SILVIA NICOLE II Rep #: [id number] : 1945 M 71 From: Salbador Mcmullen MD PCP: Delma Bland MD Status: REG CLI Study: Chest PA and Lateral Date of Exam: 08/12/17 Exam# [id number] Ordering Dr: Delma Bland MD STUDY: X-RAY CHEST REASON FOR EXAM: Male, 71 years old. Shortness of breath TECHNIQUE: PA and lateral views of the chest. COMPARISON: Previous study of December 24, 2016 FINDINGS: The left hemidiaphragm is elevated. The lungs are clear. There is no demonstrated pleural abnormality. Normal size heart. Normal mediastinum and itzel. Normal visualized pulmonary arteries. There are calcified plaques of the aortic arch. Normal visualized thoracic spine. Normal visualized ribs, clavicles, and shoulders. There is no demonstrated abnormality of the visualized soft tissue structures of the upper abdomen. RAD/Chest PA and Lateral IMPRESSION: Elevated left hemidiaphragm. Calcified plaques of the aortic arch. No acute cardiopulmonary disease process is seen. Chest findings are stable in the interval. Electronically Signed: Salbador Mcmullen MD at 19:22 EDT , Service support , CC: Delma Bland MD Aircraft Engine Dismantler: Signed CBC W/DIFF, AUTOMATED Collected: 08/12/2017 Status: F Source: DANIEL 10:38 AM [facility] REPOSITORY Order Comment: Order Date: 08/12/17 Order Info: [id number] - CBCD TYPE CODE TESTS RESULT OUT OF RANGE REFERENCE UNITS LAB L100.1000 4.4-11.0 K/mm3 Normal WBC 6.1 LAB L100.1200 4.6-6.2 M/mm3 Low RBC 4.24 LAB L100.1300 13.0-16.5 g/dl Normal HGB 13.5 LAB L100.1400 40-54 % Normal HCT 41.7 LAB L100.1500 80-94 fL High MCV 98.3 LAB L100.1600 27.0-32.0 pg Normal MCH 31.8 LAB L100.1700 32-36 g/gl Normal MCHC 32.4 LAB L100.1810 11.6-14.6 % Normal RDW CV 13.0 LAB L100.1820 35.1-43.9 fl High RDW SD 46.6 LAB L100.1900 150-450 K/mm3 Normal PLT 219 LAB L100.2000 6.2-12.0 fl Normal MPV 10.3 LAB L100.2100 47-70 % Low NEUT% 42.7 LAB L100.2200 19-41 % High LY% 47.8 LAB L100.2300 0-10 % Normal MONO% 7.5 LAB L100.2400 0-5 % Normal EO% 1.5 LAB L100.2500 0-1 % Normal BASO% 0.3 LAB L100.2550 0.0-0.9 % Normal IM GRAN % 0.200 Result Comment: IG% - Immature Granulocytes (promyelocytes, myelocytes and metamyelocytes) > 1% indicates that a LEFT SHIFT is Present. LAB L100.2620 2.0-7.7 X10 3/uL Normal Absolute Neut 2.6 LAB L100.2720 0.83-4.51 X10 3/ul Normal Absolute Lymph 2.92 Performed By: #### L100.0100, L500.4050, L500.4100, L501.9520 #### [facility] [address] [place], [address] COMPREHENSIVE METABOLIC Collected: 08/12/2017 Status: F Source: DANIEL ROD 10:38 AM [facility] REPOSITORY Order Comment: PLEASE ADD ATAB TPO AND T4F TO BLOOD DONE 08/12/17 PER Order Date: 08/12/17 Order Info: 0786-1 - CMP Order Info: [id number] - LIPID Order Info: 87514-5 - MG Order Info: 3016-3 - TSH TYPE CODE TESTS RESULT OUT OF RANGE REFERENCE UNITS LAB L501.0100 74-106 mg/dL Normal GLU 95 Result Comment: Please note revised GLUCOSE reference range effective 2017. LAB L501.1000 7-18 mg/dL High BUN 25 LAB L501.1100 0.70-1.30 mg/dL Normal CREAT,SERUM 1.06 Result Comment: The validity of the calculated GFR AND GFRAA in patients over 70 years has not been determined. Clinical correlation is essential. LAB L501.1110 >60 mL/min Normal EST GFR 74 Result Comment: Non- GFR Calc LAB L501.1115 >60 mL/min Normal EST GFR - AA 89 Result Comment: GFR Calc LAB L501.1300 10-20 RATIO High BUN/CRE 23.6 LAB L501.1500 6.4-8.2 g/dL T Normal PROT 7.7 LAB L501.1800 3.2-5.0 g/dL Normal ALB 3.8 LAB L501.1950 2.2-4.2 g/dL Normal GLOB 3.9 LAB L501.2000 0.9-2.4 RATIO Normal A/G 1.0 LAB L501.2200 8.5-10.1 mg/dL CA Normal 8.5 LAB L501.4100 15-37 U/L High AST 39 LAB L501.4305 45-117 U/L Normal ALK P 77 LAB L501.4405 16-61 U/L Normal ALT 38 LAB L501.4600 0.20-1.00 mg/dL T Normal BILI 0.30 LAB L501.5300 136-145 mmol/L NA Normal 141 LAB L501.5600 3.5-5.1 mmol/L K Normal 3.8 LAB L501.5900 98-107 mmol/L High CL 109 LAB L501.6100 21.0-32.0 mmol/L Normal CO2 23.0 LAB L501.6200 5-15 Normal GAP 9 Performed By: #### L100.0100, L500.4050, L500.4100, L501.9520 #### [facility] [address] [place], [address] LIPID PROFILE Collected: 08/12/2017 Status: F Source: MELROSE 10:38 AM [facility] REPOSITORY Order Comment: PLEASE ADD ATAB TPO AND T4F TO BLOOD DONE 08/12/17 PER Order Date: 08/12/17 Order Info: 0786-1 - CMP Order Info: [id number] - LIPID Order Info: [id number] - MG Order Info: 3016-3 - TSH TYPE CODE TESTS RESULT OUT OF RANGE REFERENCE UNITS LAB L501.4900 200 mg/dL Normal CHOL 198 Result Comment: <200 mg/dL Desirable 200-240 mg/dL Borderline >240 mg/dL High Risk LAB L501.5000 mg/dL Normal TRIG 77 Result Comment: The drugs N-Acetylcysteine and Metamizole may falsely depress this assay. Serum Triglycerides Reference Interval Normal <150 mg/dL Borderline high 150 - 199 mg/dL High 200 - 499 mg/dL Very High > or = 500 mg/dL LAB L501.6400 mg/dL Normal HDL 46 Result Comment: The drugs N-Acetylcysteine and Metamizole may falsely depress this assay. Reference Range HDL <40 mg/dL Low HDL Cholesterol HDL >or= 60 mg/dL High HDL Cholesterol LAB L501.6500 0-130 mg/dL High LDL 137 LAB L501.6600 5-40 mg/dL Normal VLDL 15 Performed By: #### L100.0100, L500.4050, L500.4100, L501.9520 #### [facility] [address] [place], [place], [id number] THYROID STIM HORMONE Collected: 08/12/2017 Status: F Source: MELROSE (TSH) 10:38 AM [facility] REPOSITORY Order Comment: PLEASE ADD ATAB TPO AND T4F TO BLOOD DONE 08/12/17 PER Order Date: 08/12/17 Order Info: 0786-1 - CMP Order Info: [id number] - LIPID Order Info: [id number] - MG Order Info: 3016-3 - TSH TYPE CODE TESTS RESULT OUT OF RANGE REFERENCE UNITS LAB L501.9520 0.358-3.74 uIU/mL High TSH 13.40 Performed By: #### L100.0100, L500.4050, L500.4100, L501.9520 #### [facility] [address] [place], [place], [address] URINALYSIS, COMPLETE Collected: 08/12/2017 Status: F Source: DANIEL 10:38 AM [facility] REPOSITORY Order Comment: How was Urine Obtained? CLEAN CATCH TYPE CODE TESTS RESULT OUT OF RANGE REFERENCE UNITS LAB L400.3000 Yellow COLOR Normal Yellow LAB L400.3050 Clear Normal CLARITY Sl. Cloudy LAB L400.3200 Normal mg/dl Normal GLUCOSE, UR Normal LAB L400.3300 Negative mg/dL Normal BILIRUBIN URINE Negative LAB L400.3400 Negative mg/dl Normal KETONE UR Negative LAB L400.3465 1.002-1.030 Normal SP.GR. DIPSTX 1.020 LAB L400.3550 5.0 - 8.0 pH UR Normal 5.0 LAB L400.3600 Negative mg/dl High PROT 30 DIPSTX LAB L400.3700 Normal mg/dl Normal UROBILI Normal LAB L400.3750 Negative Normal NITRITE UR Negative LAB L400.3780 Negative /ul High 10 OCCULT BLOOD-UR LAB L400.3800 Negative /ul LEUK Normal ESTERASE Negative LAB L400.4050 0-5 /hpf WBC 0 Normal SEEN LAB L400.4100 0-5 /hpf Normal RBC-UA 0-5 SEEN LAB L400.4150 0-5 /hpf SQUAM 0 Normal EPI SEEN LAB L400.4300 None Seen /hpf Normal BACTERIA RARE LAB L400.4350 <or=2+ /hpf 1+ Normal MUCUS, URINE LAB L400.4400 0-5 /lpf Normal HYALINE CAST 0-5 SEEN Performed By: #### L400.0001 #### [facility] [address] [place], [place], [address] MAGNESIUM Collected: 08/12/2017 Status: F Source: MELROSE 10:38 AM [facility] REPOSITORY Order Comment: PLEASE ADD ATAB TPO AND T4F TO BLOOD DONE 08/12/17 PER Order Date: 08/12/17 Order Info: 0786-1 - CMP Order Info: [id number] - LIPID Order Info: [id number] - MG Order Info: 3016-3 - TSH TYPE CODE TESTS RESULT OUT OF RANGE REFERENCE UNITS LAB L501.5200 1.6-2.6 mg/dL Normal MG 2.4 Performed By: #### L501.5200 #### [facility] [address] [place], [place], [address] T4 FREE DIRECT Collected: 08/12/2017 Status: F Source: DANIEL 10:38 AM [facility] REPOSITORY Order Comment: PLEASE ADD ATAB TPO AND T4F TO BLOOD DONE 08/12/17 PER Order Date: 08/12/17 Order Info: 0786-1 - CMP Order Info: [id number] - LIPID Order Info: [id number] - MG Order Info: 3016-3 - TSH TYPE CODE TESTS RESULT OUT OF RANGE REFERENCE UNITS LAB L506.0400 0.76-1.46 ng/dL Normal T4 FREE 0.89 DIRECT Performed By: #### L506.0400 #### [facility] [address] [place], [address] ALLERGIES ALLERGIES DATE TYPE / CODE NAME / CODE REACTION SEVERITY SOURCE 02/24/2018 Drug naproxen/F0060 agitation Unknown Daniel Allergy/[id number]( 16153(RXNORM) [facility]) Hospital Repository 02/08/2018 Miscellaneous decongest Unknown Unknown [place] Allergy/[id number]([facility]) Hospital Repository ENCOUNTERS ENCOUNTERS ADMIT/DISCHARGE ACCOUNT ADMITTING ENCOUNTER LOCATION SOURCE NUMBER CLASS 02/24/2018/ [id number] Ambulatory BMSBuilding:B [place] 9 4 [place] Repository 02/08/2018 [id number] Ambulatory BMSBuilding:B [place] 9 [place].[facility] Repository 02/08/2018/ [id number] Ambulatory [place] 8 8 [facility] ing:ENRoom: Repository AC10 01/12/2018/ [id number] Ambulatory BMSBuilding:B [place] 8 2 [facility] Repository 01/11/2018 [id number] Ambulatory [place] 6 [facility] ing:MFPLAB Repository 11/05/2017/ [id number] Ambulatory [place] 8 9 [facility] ing:SDC Repository 10/11/2017 [id number] Ambulatory [place] 3 [facility] ing:MTLAB Repository 09/29/2017/ [id number] Ambulatory BMSBuilding:B [place] 8 5 [facility] Repository 09/16/2017 [id number] Ambulatory [place] 5 [facility] ing:MRI Repository 09/14/2017 [id number] Ambulatory [place] 2 [facility] ing:MTRAD Repository 09/08/2017/ [id number] Emergency [place] Daniel 8 4 [facility] ing:ED Repository 08/31/2017 [id number] Ambulatory [place] 2 [facility] ing:MFPLAB Repository 08/19/2017/ [id number] Ambulatory [place] 8 0 [facility] ing:CLSP Repository 08/19/2017 [id number] Ambulatory BMSBuilding:W [place] 9 [facility] Repository 08/18/2017/ [id number] [facility] [place] [facility] 08/12/2017 [id number] Ambulatory [place] 1 [facility] ing:MFPLAB Repository PAYERS PAYERS ENCOUNTER GUARANTOR PAYER SUBSCRIBER SOURCE 02/24/2018 LAWCOLE Liv NICOLE Primary LAWLIN A NICOLE [place] [id number] Insurance[facility] BPolicy Number: [id number] [id number] Repository 22008Pot: 330) Date:2017-08-18 [phone] () 02/24/2018 Secondary LAWLIN A NICOLE [place] Insurance:HUMANA IIDOB: [facility] [id number] Hospital Number: Repository [id number] Date:8027-50-68DU[address] [address]YU: 02/24/2018 Tertiary NOT GIVENUNK [place] Insurance:SELF PAY [facility] Number: Effective Repository Date:2018-02-18 02/08/2018 LAWLIN A NICOLE Primary LAWLIN A NICOLE [place] [id number] Insurance:MEDICARE IIDOB: [facility] RUN PART A BPolicy Number: [id number] [place], [place] [id number] Repository [address]Pcf: (330) Date:2018-01-12 [phone] () 02/08/2018 Secondary LAWLIN A NICOLE [place] Insurance:HUMANA IIDOB: Community COMMERCIALPolicy [id number] Hospital Number: Repository [id number] Date:2383-10-93GT [address] [place] [address]EK: 02/08/2018 Tertiary NOT GIVENUNK [place] Insurance:SELF PAY [facility] Hospital Number: Effective Repository Date:2018-02-08 02/08/2018 LAWLIN A NICOLE Primary LAWLIN A NICOLE [place] [id number] Insurance:MEDICARE IIDOB: [facility] CRYSTAL RUN PART A BPolicy Number: [id number] [place], [place] [id number] Repository [address]Idp: (330) Date:2018-01-12 [phone] () 02/08/2018 Secondary LAWLIN A NICOLE [place] Insurance:HUMANA IIDOB: [facility] COMMERCIALPolicy [id number] Hospital Number: Repository [id number] Date:2858-13-84PG [address] [place] [address]YD: 02/08/2018 Tertiary NOT GIVENUNK [place] Insurance:SELF PAY [facility] Number: Effective Repository Date:2018-01-12 01/12/2018 LAWLIN A NICOLE Primary LAWLIN A NICOLE [place] [id number] Insurance:MEDICARE [facility] BPolicy Number: [id number] [place], [place] [id number] Repository [address]Byb: 330) Date:2018-01-12 [phone] () 01/12/2018 Secondary LAWLIN A NICOLE [place] Insurance:HUMANA IIDOB: [facility] COMMERCIALPolicy [id number] Hospital Number: Repository [id number] Date:9895-30-84WH [address] [address]RU: 01/12/2018 Tertiary NOT GIVENUNK [place] Insurance:SELF PAY [facility] Number: Effective Repository Date:2018-01-12 01/11/2018 LAWLIN A NICOLE Primary LAWLIN A NICOLE [place] [id number] Insurance:MEDICARE IIDOB: Community [place] RUN PART A BPolicy Number: [id number] [place], [place] [id number] Repository [address]Ymx: (330) Date:2018-01-11 [phone] () 01/11/2018 Secondary LAWLIN A NICOLE [place] Insurance:HUMANA IIDOB: Community COMMERCIALPolicy [id number] Hospital Number: Repository [id number] Date:6765-43-98OO [address] [address]LA: 01/11/2018 Tertiary NOT GIVENUNK [place] Insurance:SELF PAY [facility] Number: Effective Repository Date:2018-01-11 11/05/2017 LAWLIN A NICOLE Primary LAWLIN A NICOLE [place] [id number] Insurance:MEDICARE IIDOB: Community [place] RUN PART A BPolicy Number: [id number] [place], [place] [id number] Repository [address]Occ: (283) Date:2017-11-04 [phone] () 11/05/2017 Secondary LAWLIN A NICOLE [place] Insurance:HUMANA IIDOB: [facility]CIAL[facility] Cent[facility] [id number] Hospital Number: Repository [id number] Date:4989-84-80JZ [address] [place] [address]KK: 11/05/2017 Tertiary NOT GIVENUNK [place] Insurance:SELF PAY [facility] Hospital Number: Effective Repository Date:2017-11-04 10/11/2017 LAWLIN A NICOLE Primary LAWLIN A NICOLE [place] [id number] Insurance:MEDICARE IIDOB: Community [place] RUN PART A BPolicy Number: [id number] [place], [place] [id number] Repository [address]Czz: (330) Date:2017-10-11 [phone] () 10/11/2017 Secondary LAWLIN A NICOLE [place] Insurance:HUMANA IIDOB: Community COMMERCIALPolicy [id number] Hospital Number: Repository [id number] Date:4179-54-84VO [address] [place] [address]TI: 10/11/2017 Tertiary NOT GIVENUNK [place] Insurance:SELF PAY [facility] Hospital Number: Effective Repository Date:2017-10-11 09/29/2017 LAWLIN A NICOLE Primary LAWLIN A NICOLE [place] [id number] Insurance:MEDICARE IIDOB: Community [place] RUN PART A BPolicy Number: [id number] [place], [place] [id number] Repository [address]Tax: (217) Date:2017-09-29 [phone] () 09/29/2017 Secondary LAWLIN A NICOLE [place] Insurance:HUMANA IIDOB: [facility] COMMERCIALPolicy [id number] Hospital Number: Repository [id number] Date:3532-62-86LS [address] [place] [address]AC: 09/29/2017 Tertiary NOT GIVENUNK [place] Insurance:SELF PAY [facility] Hospital Number: Effective Repository Date:2017-09-29 09/16/2017 LAWLIN A NICOLE Primary LAWLIN A NICOLE [place] [id number] Insurance:MEDICARE IIDOB: [facility] [place] RUN PART A BPolicy Number: [id number] Pierce, [place] [id number] Repository [address]Qfu: 330) Date:2017-09-14 [phone] () 09/16/2017 Secondary LAWLIN A NICOLE [place] Insurance:HUMANA IIDOB: Community COMMERCIALPolicy [id number] Hospital Number: Repository [id number] Date:8971-42-05HH[address] [address]ON: 09/16/2017 Tertiary NOT GIVENUNK [place] Insurance:SELF PAY [facility] Hospital Number: Effective Repository Date:2017-09-14 09/14/2017 LAWLIN A NICOLE Primary LAWLIN A NICOLE [place] [id number] Insurance:MEDICARE IIDOB: Community [place] PART A BPolicy Number: [id number] [place], [place] [id number] Repository [address]Eol: (330) Date:2017-09-14 [phone] () 09/14/2017 Secondary LAWLIN A NICOLE [place] Insurance:HUMANA IIDOB: [facility]CIAL[facility] [id number] Hospital Number: Repository [id number] Date:0111-23-85TS [address] [place] [address]BJ: 09/14/2017 Tertiary NOT GIVENUNK [place] Insurance:SELF PAY [facility] Hospital Number: Effective Repository Date:2017-09-14 09/08/2017 LAWLIN A NICOLE Primary LAWLIN A NICOLE [place] [id number] Insurance:MEDICARE IIDOB: Community [place] PART A BPolicy Number: [id number] [place], [place] [id number] Repository [address]Tox: 330) Date:2017-09-08 [phone] () 09/08/2017 Secondary LAWLIN A NICOLE [place] Insurance:HUMANA IIDOB: [facility] COMM[facility]CIAL[facility] [id number] Hospital Number: Repository [id number] Date:5586-07-31JC [address] [place] [address]BK: 09/08/2017 Tertiary NOT GIVENUNK [place] Insurance:SELF PAY [facility] Hospital Number: Effective Repository Date:2017-09-08 08/31/2017 LAWLIN A NICOLE Primary LAWLIN A NICOLE [place] [id number] Insurance:MEDICARE IIDOB: Community RCYSTAL RUN PART A BPolicy Number: [id number] Pierce, [place] [id number] Repository [address]Cam: (330) Date:2017-08-31 [phone] () 08/31/2017 Secondary LAWLIN A NICOLE [place] Insurance:HUMANA IIDOB: [facility]CIAL[facility] [id number] Hospital Number: Repository [id number] Date:0287-80-65PX [address] [place] [address]OI: 08/31/2017 Tertiary NOT GIVENUNK [place] Insurance:SELF PAY [facility] Hospital Number: Effective Repository Date:2017-08-31 08/19/2017 LAWLIN A NICOLE Primary LAWLIN A NICOLE [place] [id number] Insurance:MEDICARE IIDOB: Community [place] PART A BPolicy Number: [id number] Pierce, [place] [id number] Repository [address]Dfj: 330) Date:2017-08-18 [phone] () 08/19/2017 Secondary LAWLIN A NICOLE [place] Insurance:HUMANA IIDOB: [facility] [id number] Hospital Number: Repository [id number] Date:4085-69-48XY [address] [address]AX: 08/19/2017 Tertiary NOT GIVENUNK [place] Insurance:SELF PAY [facility] Hospital Number: Effective Repository Date:2017-08-18 08/19/2017 LAWLIN A NICOLE Primary LAWLIN A NICOLE [place] [id number] Insurance:MEDICARE IIDOB: Community [place] PART A BPolicy Number: [id number] Pierce, [place] [id number] Repository [address]Qam: (816) Date:2017-08-18 [phone] () 08/19/2017 Secondary LAWLIN A NICOLE [place] Insurance:HUMANA IIDOB: [facility] [id number] Hospital Number: Repository [id number] Date:2894-05-73QQ [address] [place] [address]CE: 08/19/2017 Tertiary NOT GIVENUNK [place] Insurance:SELF PAY [facility] Hospital Number: Effective Repository Date:2017-08-19 08/18/2017 LAWLIN A NICOLE Primary LAWLIN A NICOLE [place] [id number] Insurance:MEDICARE IIDOB: Community [place] PART A BPolicy Number: [id number][facility] [place] [id number] [place] [address]Wdg: Date:2017-08-12 () 08/18/2017 Secondary LAWLIN A NICOLE [place] Insurance:HUMANA IIDOB: [facility] [id number] Hospital Number: Repository [id number] Date:9553-22-03OA [address] [place] [address]OU: 08/18/2017 Tertiary NOT GIVENUNK [place] Insurance:SELF PAY [facility] Hospital Number: Effective Repository Date:2017-08-12 08/12/2017 LAWLIN A NICOLE Primary LAWLIN A NICOLE [place] [id number] Insurance:MEDICARE [facility]IDOB: [facility] PART A BPolicy Number: [id number] [place], [place] [id number] Repository [address]Nqr: 330) Date:2017-08-12 [phone] () 08/12/2017 Secondary LAWLIN A NICOLE [place] Insurance:HUMANA IIDOB: [facility] [id number] Hospital Number: Repository [id number] Date:7350-23-37HS [address] [place] [address]TD: 08/12/2017 Tertiary NOT GIVENUNK [place] Insurance:SELF PAY [facility] Number: Effective Repository Date:2017-08-12
== END 2018-02-08 07:29 | disposition home or self-care (01) ==
LOC: EN 05:26 → AC 05:28
PROVIDERS: Family Provider Family Medicine; PCP Family Medicine; Referring Provider Surgery; Visit Provider Surgery
PROC: 0DJD8ZZ Inspection of Lower Intestinal Tract, Via Natural or Artificial Opening Endoscopic (ICD-10-PCS; CPT 45378; principal; 2018-02-08 06:25)
DX: Z12.11 Encounter for screening for malignant neoplasm of colon (principal); D12.0 Benign neoplasm of cecum; K57.30 Diverticulosis of large intestine without perforation or abscess without bleeding; K64.1 Second degree hemorrhoids; M51.16 Intervertebral disc disorders with radiculopathy, lumbar region; M96.1 Postlaminectomy syndrome, not elsewhere classified; G89.29 Other chronic pain; N40.2 Nodular prostate without lower urinary tract symptoms; Z87.891 Personal history of nicotine dependence; Z83.71 Family history of colonic polyps; M54.9 Dorsalgia, unspecified
CPT/HCPCS: G0121; 88305; J7120

== ENCOUNTER → 2018-04-20 12:43 | Outpatient (CLI) | payer MEDICARE, OTHER, SELFPAY ==
[2018-02-24 14:02] VITALS: BMI 27.7
--- NOTE | 2018-04-20 12:46 | RAD_ITS ---
STUDY: X-RAY - THORACIC SPINE REASON FOR EXAM: Male, 72 years old. Back pain. TECHNIQUE: 3 view(s) of the thoracic spine were obtained. COMPARISON: None. FINDINGS: There is a mild increase in the normal thoracic kyphosis. There is a 7.15 degree levoscoliosis of the spine centered at T5. There is mild multilevel endplate spondylosis of the thoracic vertebrae. Normal disc space heights. There is no demonstrated osseous destructive lesion or compression fracture. The paraspinal soft tissue structures are unremarkable. Incidental note of moderate elevation of the left diaphragm, etiology uncertain. RAD/Thoracic Spine 3 Views IMPRESSION: 1. Mild multilevel degenerative changes and minor dextroscoliosis of the thoracic spine, as described. 2. Elevated left diaphragm, etiology uncertain. This is unchanged from PA and lateral chest x-ray December 24, 2016. Electronically Signed: Jai Barillas, at 20:01 EST , Service support ,
== END ==
PROVIDERS: Family Provider Family Medicine; PCP Family Medicine; Referring Provider Anesthesiology Pain Medicine; Visit Provider Anesthesiology Pain Medicine
DX: M54.9 Dorsalgia, unspecified (principal)
CPT/HCPCS: 72072

== ENCOUNTER → 2018-07-07 12:05 | Outpatient (CLI) | payer MEDICARE, OTHER, SELFPAY ==
[2018-02-24 14:02] VITALS: BMI 27.7
[2018-07-07 15:13] LABS: T4 Free Direct 1.24 ng/dL (0.76-1.46); Thyroid Stim Hormone (TSH) 0.72 uIU/mL (0.358-3.74)
[2018-07-07 15:46] LABS: PSA,Total - Annual Screen 0.86 ng/mL (0.00-4.00)
== END ==
PROVIDERS: Family Provider Family Medicine; PCP Family Medicine; Referring Provider Family Medicine; Visit Provider Family Medicine
DX: E03.9 Hypothyroidism, unspecified (principal)
CPT/HCPCS: 36415; 84153; 84439; 84443; G0103

== ENCOUNTER → 2019-01-04 13:32 | Outpatient (CLI) | payer MEDICARE, OTHER, SELFPAY ==
[2018-09-01 13:08] VITALS: BMI 27.6
[2019-01-04 14:44] LABS: T4 Free Direct 1.12 ng/dL (0.76-1.46); Thyroid Stim Hormone (TSH) 4.13 uIU/mL (0.358-3.74)
== END ==
PROVIDERS: Family Provider Family Medicine; PCP Family Medicine; Referring Provider Family Medicine; Visit Provider Family Medicine
DX: E03.9 Hypothyroidism, unspecified (principal)
CPT/HCPCS: 36415; 84439; 84443

== ENCOUNTER → 2019-07-11 14:08 | Outpatient (CLI) | payer MEDICARE, OTHER, SELFPAY ==
[2018-09-01 13:08] VITALS: BMI 27.6
[2019-07-11 17:41] LABS: Absolute Lymphocyte Count 3.79 X10^3/uL (0.83-4.51); Absolute Neutrophil Count 2.8 X10^3/uL (2.0-7.7); Basophil# 0.04 X10^3/uL; Basophil% 0.5 % (0-1); Eosinophil# 0.07 X10^3/uL; Hematocrit 44.7 % (40-54); Hemoglobin 14.3 g/dL (13.0-16.5); Lymphocyte # 3.79 X10^3/ul (4.0); Lymphocyte % 51.7 % (19-41); Mean Corpuscular Hgb 31.2 pg (27.0-32.0); Mean Corpuscular Volume 97.4 fL (80-94); Mean Platelet Vol. 11.3 fl (6.2-12.0); Monocyte# 0.61 X10^3/uL; Monocyte% 8.3 % (0-10); NRBC Flagged by Analyzer 0 % (0-5); Neutrophil # 2.81 X10^3/uL (2.7-7.7); Neutrophil % 38.4 % (47-70); Platelet Count 233 K/mm3 (150-450); RBC Distribution Width CV 11.9 % (11.6-14.6); Red Blood Count 4.59 M/mm3 (4.6-6.2); White Blood Count 7.3 K/mm3 (4.4-11.0)
[2019-07-11 18:11] LABS: AST(SGOT) 23 U/L (15-37); Alanine Aminotransfer ALT/SGPT 23 U/L (16-61); Albumin, Serum 3.9 g/dL (3.2-5.0); Alkaline Phosphatase 74 U/L (45-117); Anion Gap 10 (5-15); BUN 16 mg/dL (7-18); BUN/Creat Ratio 13.4 RATIO (10-20); Calcium,Total 9.1 mg/dL (8.5-10.1); Chloride 107 mmol/L (98-107); Cholesterol 220 mg/dL (200); Creatinine, Serum 1.19 mg/dL (0.70-1.30); EST Glomerular Filtration Rate 64 mL/min (>60); Est Glom Filt Rate - Afr Amer 77 mL/min (>60); Glucose 85 mg/dL (74-106); High Density Lipoprotein 43 mg/dL; PSA,Total - Annual Screen 0.94 ng/mL (0.00-4.00); Potassium 4.2 mmol/L (3.5-5.1); Protein, Total 7.9 g/dL (6.4-8.2); Sodium Level 139 mmol/L (136-145); T4 Free Direct 1.26 ng/dL (0.76-1.46); Thyroid Stim Hormone (TSH) 0.93 uIU/mL (0.358-3.74); Triglycerides 149 mg/dL; Very Low Density Lipoprotein 30 mg/dL (5-40)
[2019-07-14 13:36] LABS: Thyroglobulin Antibody < 1.0 IU/mL (0.0-0.9); Thyroid Peroxidase AB 10 IU/mL (0-34)
== END ==
PROVIDERS: PCP Family Medicine; Referring Provider Family Medicine; Visit Provider Family Medicine
DX: Z00.00 Encounter for general adult medical examination without abnormal findings (principal); Z12.5 Encounter for screening for malignant neoplasm of prostate; E03.9 Hypothyroidism, unspecified
CPT/HCPCS: 80053; 80061; 84153; 84439; 84443; 85025; 86376; 86800; G0103

== ENCOUNTER → 2019-11-09 11:32 | Outpatient (CLI) | payer MEDICARE, OTHER, SELFPAY ==
[2018-09-01 13:08] VITALS: BMI 27.6
[2019-11-09 16:14] LABS: AST(SGOT) 17 U/L (15-37); Alanine Aminotransfer ALT/SGPT 22 U/L (16-61); Albumin, Serum 3.9 g/dL (3.2-5.0); Alkaline Phosphatase 90 U/L (45-117); Anion Gap 6 (5-15); BUN 17 mg/dL (7-18); BUN/Creat Ratio 14.5 RATIO (10-20); Calcium,Total 9.1 mg/dL (8.5-10.1); Chloride 107 mmol/L (98-107); Cholesterol 221 mg/dL (200); Creatinine, Serum 1.17 mg/dL (0.70-1.30); EST Glomerular Filtration Rate 65 mL/min (>60); Est Glom Filt Rate - Afr Amer 79 mL/min (>60); Globulin 3.9 g/dL (2.2-4.2); Glucose 88 mg/dL (74-106); High Density Lipoprotein 44 mg/dL; Potassium 4.1 mmol/L (3.5-5.1); Protein, Total 7.8 g/dL (6.4-8.2); Sodium Level 140 mmol/L (136-145); T4 Free Direct 1.24 ng/dL (0.76-1.46); Thyroid Stim Hormone (TSH) 0.52 uIU/mL (0.358-3.74); Triglycerides 131 mg/dL; Very Low Density Lipoprotein 26 mg/dL (5-40)
== END ==
PROVIDERS: PCP Family Medicine; Referring Provider Family Medicine; Visit Provider Family Medicine
DX: R79.89 Other specified abnormal findings of blood chemistry (principal); E78.5 Hyperlipidemia, unspecified; E03.9 Hypothyroidism, unspecified
CPT/HCPCS: 36415; 80053; 80061; 84439; 84443

== ENCOUNTER → 2020-02-19 09:26 | Outpatient (CLI) | payer MEDICARE, OTHER, SELFPAY ==
[2018-09-01 13:08] VITALS: BMI 27.6
== END ==
PROVIDERS: PCP Family Medicine; Visit Provider Family Medicine
DX: R69 Illness, unspecified (principal)

== ENCOUNTER → 2020-02-22 11:01 | Outpatient (CLI) | payer MEDICARE, OTHER, SELFPAY ==
[2018-09-01 13:08] VITALS: BMI 27.6
[2020-02-22 12:57] LABS: ALB/GLOB Ratio 1.1 RATIO (0.9-2.4); AST(SGOT) 14 U/L (15-37); Alanine Aminotransfer ALT/SGPT 20 U/L (16-61); Albumin, Serum 3.8 g/dL (3.2-5.0); Alkaline Phosphatase 87 U/L (45-117); Anion Gap 5 (5-15); BUN 17 mg/dL (7-18); BUN/Creat Ratio 14.5 RATIO (10-20); Calcium,Total 8.7 mg/dL (8.5-10.1); Chloride 109 mmol/L (98-107); Cholesterol 114 mg/dL (200); Creatinine, Serum 1.17 mg/dL (0.70-1.30); EST Glomerular Filtration Rate 65 mL/min (>60); Est Glom Filt Rate - Afr Amer 79 mL/min (>60); Globulin 3.5 g/dL (2.2-4.2); Glucose 120 mg/dL (74-106); High Density Lipoprotein 47 mg/dL; Potassium 3.9 mmol/L (3.5-5.1); Protein, Total 7.3 g/dL (6.4-8.2); Sodium Level 139 mmol/L (136-145); T4 Free Direct 1.16 ng/dL (0.76-1.46); Thyroid Stim Hormone (TSH) 0.56 uIU/mL (0.358-3.74); Triglycerides 60 mg/dL; Very Low Density Lipoprotein 12 mg/dL (5-40)
== END ==
PROVIDERS: PCP Family Medicine; Visit Provider Family Medicine
DX: E78.5 Hyperlipidemia, unspecified (principal); E03.9 Hypothyroidism, unspecified
CPT/HCPCS: 36415; 80053; 80061; 84439; 84443

== ENCOUNTER 2020-04-30 16:31 | Outpatient (RCR) | payer MEDICARE, OTHER, SELFPAY ==
[2018-09-01 13:08] VITALS: BMI 27.6
[2020-04-30] MEDS: COVID-19 VACC, MRNA(PFIZER)/PF 30 MCG/0.3 ML SYRINGE IM (16:49)
[2020-05-21] MEDS: COVID-19 VACC, MRNA(PFIZER)/PF 30 MCG/0.3 ML SYRINGE IM (16:27)
== END 2020-07-30 23:59 ==
LOC: IMMUN 16:31
PROVIDERS: PCP Family Medicine; Visit Provider Family Medicine
DX: Z23 Encounter for immunization (principal)
CPT/HCPCS: 0001A; 0002A; 91300

== ENCOUNTER → 2020-08-06 13:54 | Outpatient (CLI) | payer MEDICARE, OTHER, SELFPAY ==
[2018-09-01 13:08] VITALS: BMI 27.6
[2020-08-06 18:17] LABS: PSA,Total - Annual Screen 0.84 ng/mL (0.00-4.00)
== END ==
PROVIDERS: PCP Family Medicine; Referring Provider Family Medicine; Visit Provider Family Medicine
DX: Z12.5 Encounter for screening for malignant neoplasm of prostate (principal)
CPT/HCPCS: 36415; 84153; G0103

== ENCOUNTER → 2020-08-22 13:40 | Outpatient (CLI) | payer MEDICARE, OTHER, SELFPAY ==
[2018-09-01 13:08] VITALS: BMI 27.6
[2020-08-22 18:55] LABS: ALB/GLOB Ratio 1.1 RATIO (0.9-2.4); AST(SGOT) 19 U/L (15-37); Alanine Aminotransfer ALT/SGPT 20 U/L (16-61); Alkaline Phosphatase 88 U/L (45-117); Anion Gap 5 (5-15); BUN 21 mg/dL (7-18); BUN/Creat Ratio 17.5 RATIO (10-20); Calcium,Total 8.9 mg/dL (8.5-10.1); Chloride 105 mmol/L (98-107); Cholesterol 136 mg/dL (200); EST Glomerular Filtration Rate 63 mL/min (>60); Est Glom Filt Rate - Afr Amer 76 mL/min (>60); Globulin 3.6 g/dL (2.2-4.2); Glucose 87 mg/dL (74-106); High Density Lipoprotein 50 mg/dL; Potassium 4.2 mmol/L (3.5-5.1); Protein, Total 7.6 g/dL (6.4-8.2); Sodium Level 137 mmol/L (136-145); T4 Free Direct 1.21 ng/dL (0.76-1.46); Thyroid Stim Hormone (TSH) 0.93 uIU/mL (0.358-3.74); Triglycerides 105 mg/dL; Very Low Density Lipoprotein 21 mg/dL (5-40)
[2020-08-23 14:15] LABS: Absolute Lymphocyte Count 3.66 X10^3/uL (0.83-4.51); Absolute Neutrophil Count 3.7 X10^3/uL (2.0-7.7); Basophil# 0.04 X10^3/uL; Basophil% 0.5 % (0-1); Eosinophils% 1.2 % (0-5); Hematocrit 44.2 % (40-54); Hemoglobin 14.1 g/dL (13.0-16.5); Lymphocyte # 3.66 X10^3/ul (0.83-4.51); Lymphocyte % 44.9 % (19-41); Mean Corp Hgb Conc 31.9 g/dL (32-36); Mean Corpuscular Volume 100.5 fL (80-94); Mean Platelet Vol. 12.1 fl (6.2-12.0); Monocyte# 0.65 X10^3/uL; NRBC Flagged by Analyzer 0 % (0-5); Neutrophil # 3.68 X10^3/uL (2.7-7.7); Neutrophil % 45.2 % (47-70); Platelet Count 184 K/mm3 (150-450); RBC Distribution Width CV 11.8 % (11.6-14.6); RBC Distribution Width SD 44.4 fl (35.1-43.9); White Blood Count 8.2 K/mm3 (4.4-11.0)
== END ==
PROVIDERS: PCP Family Medicine; Visit Provider Family Medicine
DX: E78.5 Hyperlipidemia, unspecified (principal); E03.9 Hypothyroidism, unspecified
CPT/HCPCS: 36415; 80053; 80061; 84439; 84443; 85025

== ENCOUNTER → 2020-12-19 15:51 | Outpatient (CLI) | payer MEDICARE, OTHER, SELFPAY ==
--- NOTE | 2020-12-19 15:54 | RAD_ITS ---
STUDY: X-RAY - LUMBAR SPINE REASON FOR EXAM: Male, 75 years old. Back pain. TECHNIQUE: 2 view(s) of the lumbar spine were obtained. COMPARISON: MRI of the lumbar spine dated 09/16/2017. FINDINGS: Osteopenia. Mild dextroscoliosis unchanged. There is a normal alignment of the vertebrae. Posterior fusion ab L5-S1 with intervertebral disc prosthesis. Diffuse facet sclerosis. The soft tissue structures are unremarkable. RAD/Lumbar Spine 2 or 3 Views IMPRESSION: Osteopenia with stable posterior fusion at L5-S1. No other abnormality. Electronically Signed: Bernard Gaston MD at 9:28 EDT , Service support ,
== END ==
PROVIDERS: PCP Family Medicine; Visit Provider Anesthesiology Pain Medicine
DX: M85.88 Other specified disorders of bone density and structure, other site (principal); Z98.1 Arthrodesis status
CPT/HCPCS: 72100

== ENCOUNTER 2021-02-25 10:32 | Outpatient (CLI) | payer MEDICARE, OTHER, SELFPAY ==
[2021-02-25 13:05] LABS: CPK Total, Creatine Kinase 166 U/L (39-308); Ferritin 188 ng/mL (26-388); Magnesium 2.3 mg/dL (1.6-2.6); PSA,Total- Diagnostic 1.14 ng/mL (0.0-4.0); Thyroid Stim Hormone (TSH) 1.08 uIU/mL (0.358-3.74)
== END 2021-02-25 23:59 | disposition short-term general hospital (02) ==
LOC: MFPLAB 10:34
PROVIDERS: PCP Family Medicine; Referring Provider Family Medicine; Visit Provider Family Medicine
DX: E11.9 Type 2 diabetes mellitus without complications (principal); R25.2 Cramp and spasm; N40.2 Nodular prostate without lower urinary tract symptoms
CPT/HCPCS: 36415; 82550; 82728; 83735; 84153; 84443

== ENCOUNTER 2021-05-13 06:03 | Day surgery (SDC) | payer MEDICARE, OTHER, SELFPAY ==
[2021-05-13] VITALS (10 sets, daily range): BP systolic 69–126; BP diastolic 47–92; PULSE 68–94; RESP 16–18; TEMP 36.1–36.9; O2SAT 91–100; BMI 27.7
--- NOTE | 2021-05-13 06:18 | HP.PCM_ITS ---
HPI - General HPI Narrative SILVIA URIBE, is a 75 M who presents for colonoscopy today. He presents via open access. I assisted him with a colonoscopy in 2018. Polyps were removed at that time. Additionally the patient has a family history of the father had colon cancer. Fortunately the patient denies any acute symptoms at this setting. He otherwise enjoys good health. He denies having had Covid-19. [facility]LY [facility] Medical History (Updated 05/13/21 @ 06:[address] 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 Leg cramps Migraine headache Postlaminectomy syndrome, not elsewhere classified Postlaminectomy syndrome, not elsewhere classified Prostate disease Radiculopathy of lumbar region Radiculopathy of lumbar region Restless legs Shortness of breath on exertion Thyroid disease Wears glasses Home Medications cyclobenzaprine 5 mg tablet 5 mg PO TID PRN 08/18/17 [History Last Taken Unknown] levothyroxine 88 mcg capsule 100 mcg PO DAILY 09/01/18 [History Last Taken Unkno wn] rosuvastatin [Crestor] 10 mg PO DAILY 05/07/21 [History Last Taken Unknown] Allergy/AdvReac Type Severity Reaction Status Date / Time naproxen [From Naprosyn] AdvReac agitation Verified 09/01/18 13:09 decongest AdvReac unknown Uncoded 09/01/18 13:09 Family History Son Heart disease atrial fib Other Cancer Surgical History (Updated 05/07/21 @ 13:46 by Dena Jsoé) H/O spinal fusion History of arthroscopic knee surgery History of cardiac catheterization History of herniorrhaphy History of left heart catheterization (08/19/17) Social History (Updated 09/01/18 @ 14:[address] Dougie Mary MD) Smoking Status: Former smoker alcohol intake: current alcohol intake frequency: a few times a week ROS Constitutional Constitutional: Reports systems reviewed and no addt'l complaints, except as documented Cardiovascular Cardiovascular: Denies chest pain Respiratory/Chest Respiratory/Chest: Denies shortness of breath at rest Gastrointestinal Gastrointestinal: Denies abdominal pain, change in bowel habits, hematochezia or melena Physical Exam Const alert, oriented x3 and no apparent distress General Appearance: cooperative and comfortable Eyes General Eye: normal appearance of both eyes Neck General: normal visual inspection Chest inspection of chest normal Resp Effort and Inspection: able to speak in complete sentences and symmetric chest movement Auscultation: clear to auscultation bilaterally Cardio regular rate and regular rhythm GI soft to palpation, non-tender and non-distended Extremity no calf tenderness Neuro oriented x3 Psych thought process normal Assessment & Plan Assessment/Plan (1) Personal history of colonic polyps: (2) Family history of colon cancer in father: PLAN: 75-year-old gentleman. He has a personal history of colon polyps on his previous colonoscopy 2018. He has a family history of colon cancer in his father. Fortunately he has no acute symptoms. He presents via open access today for surveillance colonoscopy. He is aware of the technique, benefit, risk, alternatives. He has had an opportunity to ask and have questions answered. We will proceed as noted. Sebastian Mora M.D., F.A.C.S.
[2021-05-13] MEDS: Lactated Ringers 1,000 ML 15 ML IV (06:43)
--- NOTE | 2021-05-13 07:00 | COLBX_PTH ---
PATIENT: SILVIA URIBE II LOC: EN U#:[id number] AGE/SX: 75/M ROOM: RE05/13/[address]: Dr. Sebastian Mora MD : 1945 BED: DIS: 05/13/2021 SPEC #: [id number] RECD: 05/13/21 15:53 STATUS: AUGUST EDWARD #: [id number] UZMA: 05/13/21 07:[address]: Sebastian Mora DEPT: SURGICAL PATHOLOGY RECD BY: Olinda Blackwell ENTERED: 05/14/21 09:43 SP TYPE: COLON BX OTHR DR: Dr. Edu Glover MD Tissues: Transverse colon Procedures: Surgery Specimen Level IV HEADER OPERATION: Colonoscopy ? open access (MOD) PRE-OP DIAGNOSIS: History off colonic polyps TISSUE SUBMITTED: Mid transverse polyp MICROSCOPIC DIAGNOSIS Mid transverse colon polyp, biopsy: A fragment of colonic mucosa, no pathologic diagnosis. See comment. SJ:leigh 05/15/2021 COMMENT Hyperplastic or adenomatous changes are not seen. MICROSCOPIC DESCRIPTION Slides are reviewed. GROSS DESCRIPTION Received in fixative is one container labeled with the patient's name and designated mid transverse polyp. The specimen consists of one irregular fragment of light valdivia soft tissue that measures 0.3 x 0.3 x 0.1 cm. A few fragments of fecal material are also noted. The specimen is totally submitted in one cassette. / MARY JO:leigh 05/14/2021 TC:4 CPT: 23856
[2021-05-13] MEDS: Midazolam 5 MG/ML Syringe (07:10)
--- NOTE | 2021-05-13 07:32 | OP.CCLET_ITS ---
05/13/2021 Edu Glover [address] [place] [address] Re : Colonoscopy procedure for sayra Nicole Dear Dr. Glover This procedure was performed on Thursday, May 13, 2021. My impressions and recommendations are as follows: Impressions : - Non-thrombosed internal hemorrhoids, internal hemorrhoids that prolapse with straining, but spontaneously regress to the resting position (Grade II) and enlarged prostate found on digital rectal exam. - One 4 mm polyp in the mid transverse colon, removed with a cold biopsy forceps. Resected and retrieved. - The examination was otherwise normal. Recommendations : - Discharge patient to home. - Resume previous diet. - Continue present medications. - Repeat colonoscopy in 5 years for surveillance based on pathology results. - Telephone my office for pathology results in 1 week. My findings are described in the full procedure note, which is enclosed. If I can be of further assistance, please feel free to contact me at Doctor phone number(s): Work: . Sincerely, Sebastian Mora MD 05/13/2021 7:31:11 AM This report has been signed electronically.
--- NOTE | 2021-05-13 07:32 | OP.COLON_ITS ---
Patient Name: Nacho Nicole Procedure Date: 05/13/2021 7:00 AM Date of : 1945 Age: 75 Procedure: Colonoscopy Indications: High risk colon cancer surveillance: Personal history of colonic polyps, Family history of colon cancer in a first-degree relative Providers: Sebastian Mora MD Medicines: Midazolam 3.5 mg IV, Meperidine 100 mg IV Patient Profile: Last Colonoscopy: 2017. Complications: No immediate complications. Procedure: Pre-Anesthesia Assessment: - Prior to the procedure, a History and Physical was performed, and patient medications and allergies were reviewed. The patient's tolerance of previous anesthesia was also reviewed. The risks and benefits of the procedure and the sedation options and risks were discussed with the patient. All questions were answered, and informed consent was obtained. Prior Anticoagulants: The patient has taken no previous anticoagulant or antiplatelet agents. ASA Grade Assessment: II - A patient with mild systemic disease. After reviewing the risks and benefits, the patient was deemed in satisfactory condition to undergo the procedure. After I obtained informed consent, the scope was passed under direct vision. Throughout the procedure, the patient's blood pressure, pulse, and oxygen saturations were monitored continuously. The Colonoscope was introduced through the anus and advanced to the cecum, identified by appendiceal orifice and ileocecal valve. The colonoscopy was performed without difficulty. The patient tolerated the procedure well. The quality of the bowel preparation was good. The ileocecal valve and the appendiceal orifice were photographed. Moderate Sedation: Moderate (conscious) sedation was personally administered by the endoscopist. The following parameters were monitored: oxygen saturation, heart rate, blood pressure, and response to care. Total physician intraservice time was 15 minutes. Scope In: 7:13:13 AM Scope Withdrawal Time 0 hours 10 minutes 29 seconds Scope Out: 7:26:28 AM Total Procedure Duration Time 0 hours 13 minutes 15 seconds Findings: The digital rectal exam findings include non-thrombosed internal hemorrhoids, internal hemorrhoids that prolapse with straining, but spontaneously regress to the resting position (Grade II) and enlarged prostate. A 4 mm polyp was found in the mid transverse colon. The polyp was sessile. The polyp was removed with a cold biopsy forceps. Resection and retrieval were complete. The exam was otherwise without abnormality. Impression: - Non-thrombosed internal hemorrhoids, internal hemorrhoids that prolapse with straining, but spontaneously regress to the resting position (Grade II) and enlarged prostate found on digital rectal exam. - One 4 mm polyp in the mid transverse colon, removed with a cold biopsy forceps. Resected and retrieved. - The examination was otherwise normal. Recommendation: - Discharge patient to home. - Resume previous diet. - Continue present medications. - Repeat colonoscopy in 5 years for surveillance based on pathology results. - Telephone my office for pathology results in 1 week. Procedure Code(s): --- Professional --- 58615, Colonoscopy, flexible; with biopsy, single or multiple 60830, 59, Moderate sedation services provided by the same physician or other qualified health primary care sales representative performing the diagnostic or therapeutic service that the sedation supports, requiring the presence of an independent trained observer to assist in the monitoring of the patient's level of consciousness and physiological status; initial 15 minutes of intraservice time, patient age 5 years or older Diagnosis Code(s): --- Professional --- Z86.010, Personal history of colonic polyps D12.3, Benign neoplasm of transverse colon (hepatic flexure or splenic flexure) K64.1, Second degree hemorrhoids Z80.0, Family history of malignant neoplasm of digestive organs N40.0, Benign prostatic hyperplasia without lower urinary tract symptoms CPT copyright 2017 [employer]. All rights reserved. The codes documented in this report are preliminary and upon systems analyst engineer review may be revised to meet current compliance requirements. Sebastian Mora MD 05/13/2021 7:31:11 AM This report has been signed electronically. Number of Addenda: 0 Note Initiated On: 05/13/2021 7:00 AM
== END 2021-05-13 23:59 | disposition home or self-care (01) ==
LOC: EN 06:06 → AC 06:13
PROVIDERS: PCP Family Medicine; Referring Provider Family Medicine; Visit Provider Surgery
PROC: 0DJD8ZZ Inspection of Lower Intestinal Tract, Via Natural or Artificial Opening Endoscopic (ICD-10-PCS; CPT 45378; principal; 2021-05-13 06:55)
DX: Z12.11 Encounter for screening for malignant neoplasm of colon (principal); K64.1 Second degree hemorrhoids; G89.29 Other chronic pain; D12.3 Benign neoplasm of transverse colon; N40.0 Benign prostatic hyperplasia without lower urinary tract symptoms; E78.00 Pure hypercholesterolemia, unspecified; E03.9 Hypothyroidism, unspecified; M96.1 Postlaminectomy syndrome, not elsewhere classified; Z79.899 Other long term (current) drug therapy; Z86.010 Personal history of colon polyps; Z87.891 Personal history of nicotine dependence; Z80.0 Family history of malignant neoplasm of digestive organs
CPT/HCPCS: 45380; 88305; 99152; 99153; J7120

== ENCOUNTER → 2021-08-13 | Outpatient (CLI) | payer MEDICARE, OTHER, SELFPAY ==
--- NOTE | 2021-08-13 10:53 | RAD_ITS ---
STUDY: X-RAY - PARANASAL SINUSES REASON FOR EXAM: Male, 75 years old. CHRONIC SINUSITIS TECHNIQUE: 3 view(s) of the paranasal sinuses were obtained. COMPARISON: None. FINDINGS: Normal visualized frontal, maxillary, ethmoidal and sphenoid sinuses. Normal visualized facial bones. The soft tissue structures are unremarkable. RAD/Sinuses min 3 Views IMPRESSION: Normal x-rays of the paranasal sinuses. Electronically Signed: Thierry Nj DO at 23:12 EDT ,
== END | disposition home or self-care (01) ==
PROVIDERS: PCP Family Medicine; Referring Provider Family Medicine; Visit Provider Family Medicine
DX: J32.9 Chronic sinusitis, unspecified (principal)
CPT/HCPCS: 70220

== ENCOUNTER → 2021-08-29 | Outpatient (CLI) | payer MEDICARE, OTHER, SELFPAY ==
[2021-08-29 15:07] LABS: Absolute Lymphocyte Count 3.35 X10^3/uL (0.83-4.51); Absolute Neutrophil Count 3.7 X10^3/uL (2.0-7.7); Basophil# 0.06 X10^3/uL; Basophil% 0.8 % (0-1); Eosinophil# 0.19 X10^3/uL; Eosinophils% 2.4 % (0-5); Hemoglobin 13.9 g/dL (13.0-16.5); Lymphocyte # 3.35 X10^3/ul (0.83-4.51); Lymphocyte % 42.1 % (19-41); Mean Corp Hgb Conc 32.3 g/dL (32-36); Mean Corpuscular Hgb 32.3 pg (27.0-32.0); Mean Corpuscular Volume 99.8 fL (80-94); Mean Platelet Vol. 11.2 fl (6.2-12.0); Monocyte# 0.63 X10^3/uL; Monocyte% 7.9 % (0-10); NRBC Flagged by Analyzer 0 % (0-5); Neutrophil # 3.69 X10^3/uL (2.7-7.7); Neutrophil % 46.4 % (47-70); Platelet Count 204 K/mm3 (150-450); RBC Distribution Width CV 12.2 % (11.6-14.6); RBC Distribution Width SD 44.7 fl (35.1-43.9); Red Blood Count 4.31 M/mm3 (4.6-6.2)
[2021-08-29 15:34] LABS: ALB/GLOB Ratio 1.1 RATIO (0.9-2.4); AST(SGOT) 23 U/L (15-37); Alanine Aminotransfer ALT/SGPT 23 U/L (16-61); Albumin, Serum 3.7 g/dL (3.2-5.0); Alkaline Phosphatase 68 U/L (45-117); Anion Gap 7 (5-15); BUN 18 mg/dL (7-18); BUN/Creat Ratio 16.2 RATIO (10-20); Calcium,Total 8.8 mg/dL (8.5-10.1); Chloride 106 mmol/L (98-107); Cholesterol 155 mg/dL (200); Creatinine, Serum 1.11 mg/dL (0.70-1.30); EST Glomerular Filtration Rate 69 mL/min (>60); Est Glom Filt Rate - Afr Amer 83 mL/min (>60); Globulin 3.5 g/dL (2.2-4.2); Glucose 96 mg/dL (74-106); High Density Lipoprotein 44 mg/dL; Protein, Total 7.2 g/dL (6.4-8.2); Sodium Level 137 mmol/L (136-145); T4 Free Direct 1.09 ng/dL (0.76-1.46); Thyroid Stim Hormone (TSH) 1.59 uIU/mL (0.358-3.74); Triglycerides 160 mg/dL; Very Low Density Lipoprotein 32 mg/dL (5-40)
== END | disposition home or self-care (01) ==
PROVIDERS: PCP Family Medicine; Visit Provider Family Medicine
DX: E78.5 Hyperlipidemia, unspecified (principal); E03.9 Hypothyroidism, unspecified
CPT/HCPCS: 36415; 80053; 80061; 84439; 84443; 85025

== ENCOUNTER → 2021-09-25 | Outpatient (CLI) | payer MEDICARE, OTHER, SELFPAY ==
--- NOTE | 2021-09-25 11:06 | MRI_ITS ---
STUDY: MRI BRAIN WITH AND WITHOUT CONTRAST REASON FOR EXAM: Male, 75 years old. HEADACHES TRIGGERED BY COUGH, SNEEZE OR STRAINING TECHNIQUE: Standardized multiplanar fat and water weighted pulse sequences were obtained. 17ML IV DOTAREM was administered for the contrast portion of the examination. COMPARISON: None. FINDINGS: There is mild cerebral atrophy with widening of the extra-axial spaces and ventricular dilatation. There are a limited number of small white matter hyperintensities, distributed throughout the deep white matter tracts of the cerebral hemispheres, consistent with mild chronic white matter ischemic changes. There is no evidence for recent intracranial ischemia or other cause of cytotoxic edema on diffusion weighted imaging (DWI). Normal T2* images of the brain without demonstrated susceptibility artifact. There is no demonstrated hemosiderin stain. Normal bilateral frontal poles, and orbital frontal and gyrus recti of the frontal lobes. Normal bilateral temporal tips of the temporal lobes. There are no white matter shear injuries (diffuse axonal injuries). There are no parenchymal hemorrhages or hematomas. There are no findings to suggest prior closed head parenchymal injury of the brain. No visualized brain parenchymal edema or masses or abnormal enhancement is present. No abnormal thickening or enhancement of meninges or dura is present. No visualized defects of the cribriform plate are intact. No visualized mass of the nasopharyngeal region. No visualized midline shift or herniation. Intracranial/CSF opening pressures can be obtained with spinal puncture and evaluation for CSF leak can be obtained with a nuclear medicine radionucleotide cisternography exam. Normal bilateral basal ganglia. Normal thalami. There is no extra-axial fluid accumulation. Normal flow voids within the major intracranial circulation suggesting patency by spin echo criteria. Normal venous enhancement. There is no enhancing intra-axial or extra-axial abnormality. Normal sella turcica, pituitary gland, infundibular stalk, optic chiasm and hypothalamus. Normal tectal plate and pineal gland. Normal midbrain, chel and medulla. Normal cerebellum. Normal basal cisterns. Normal bilateral temporal bones. Normal bilateral internal auditory canals. No demonstrated orbital abnormality, within the constraints of a routine brain study. Normal visualized paranasal sinuses. Normal calvarium and skull base. Normal visualized soft tissue structures. Normal visualized upper cervical spine. MRI/Brain W/WO Contrast IMPRESSION: 1. Unremarkable unenhanced and enhanced MRI of the brain. 2. No visualized brain parenchymal edema or masses or abnormal enhancement is present. No abnormal thickening or enhancement of meninges or dura is present. 3. No visualized defect of the cribriform plate are intact. No visualized mass of the nasopharyngeal region. 4. No visualized midline shift or herniation. 5. Intracranial/CSF opening pressures can be obtained with spinal puncture and evaluation for CSF leak can be obtained with a nuclear medicine radionucleotide cisternography exam. Electronically Signed: Lamine Morales MD at 13:42 EDT ,
== END | disposition home or self-care (01) ==
LOC: MRI 10:59
PROVIDERS: PCP Family Medicine; Visit Provider Otolaryngology
DX: R51.9 Headache, unspecified (principal)
CPT/HCPCS: 70553; A9575

== ENCOUNTER → 2022-02-12 | Outpatient (CLI) | payer MEDICARE, OTHER, SELFPAY ==
[2022-02-12 15:08] LABS: Absolute Lymphocyte Count 3.33 X10^3/uL (0.83-4.51); Absolute Neutrophil Count 2.9 X10^3/uL (2.0-7.7); Basophil# 0.05 X10^3/uL; Basophil% 0.7 % (0-1); Eosinophils% 1.4 % (0-5); Hematocrit 42.4 % (40-54); Hemoglobin 14.2 g/dL (13.0-16.5); Lymphocyte # 3.33 X10^3/ul (0.83-4.51); Lymphocyte % 47.3 % (19-41); Mean Corp Hgb Conc 33.5 g/dL (32-36); Mean Corpuscular Hgb 33.1 pg (27.0-32.0); Mean Corpuscular Volume 98.8 fL (80-94); Mean Platelet Vol. 11.3 fl (6.2-12.0); Monocyte% 8.5 % (0-10); NRBC Flagged by Analyzer 0 % (0-5); Neutrophil # 2.94 X10^3/uL (2.7-7.7); Neutrophil % 41.8 % (47-70); Platelet Count 184 K/mm3 (150-450); RBC Distribution Width CV 11.9 % (11.6-14.6); RBC Distribution Width SD 43.4 fl (35.1-43.9); Red Blood Count 4.29 M/mm3 (4.6-6.2)
[2022-02-12 15:53] LABS: ALB/GLOB Ratio 1.3 RATIO (0.9-2.4); AST(SGOT) 22 U/L (15-37); Alanine Aminotransfer ALT/SGPT 24 U/L (16-61); Albumin, Serum 4.1 g/dL (3.2-5.0); Alkaline Phosphatase 70 U/L (45-117); Anion Gap 5 (5-15); BUN 17 mg/dL (7-18); BUN/Creat Ratio 15.5 RATIO (10-20); Calcium,Total 8.9 mg/dL (8.5-10.1); Chloride 108 mmol/L (98-107); Cholesterol 142 mg/dL (200); EST Glomerular Filtration Rate 70 mL/min (>60); Est Glom Filt Rate - Afr Amer 84 mL/min (>60); Globulin 3.2 g/dL (2.2-4.2); Glucose 83 mg/dL (74-106); High Density Lipoprotein 50 mg/dL; PSA,Total - Annual Screen 1.07 ng/mL (0.00-4.00); Potassium 4.3 mmol/L (3.5-5.1); Protein, Total 7.3 g/dL (6.4-8.2); Sodium Level 138 mmol/L (136-145); T4 Free Direct 1.23 ng/dL (0.76-1.46); Thyroid Stim Hormone (TSH) 1.58 uIU/mL (0.358-3.74); Triglycerides 111 mg/dL; Very Low Density Lipoprotein 22 mg/dL (5-40)
== END | disposition home or self-care (01) ==
LOC: MFPLAB 13:55
PROVIDERS: PCP Family Medicine; Referring Provider Family Medicine; Visit Provider Family Medicine
DX: E78.5 Hyperlipidemia, unspecified (principal); E03.8 Other specified hypothyroidism; Z12.5 Encounter for screening for malignant neoplasm of prostate
CPT/HCPCS: 36415; 80053; 80061; 84153; 84439; 84443; 85025; G0103

== ENCOUNTER → 2022-05-14 | Outpatient (CLI) | payer MEDICARE, OTHER, SELFPAY ==
[2022-05-14 15:10] LABS: Absolute Lymphocyte Count 4.01 X10^3/uL (0.83-4.51); Absolute Neutrophil Count 3.5 X10^3/uL (2.0-7.7); Basophil# 0.05 X10^3/uL; Basophil% 0.6 % (0-1); Eosinophil# 0.09 X10^3/uL; Eosinophils% 1.1 % (0-5); Hematocrit 41.5 % (40-54); Hemoglobin 13.6 g/dL (13.0-16.5); Lymphocyte # 4.01 X10^3/ul (0.83-4.51); Mean Corp Hgb Conc 32.8 g/dL (32-36); Mean Corpuscular Volume 97.6 fL (80-94); Mean Platelet Vol. 11.2 fl (6.2-12.0); Monocyte# 0.69 X10^3/uL; Monocyte% 8.3 % (0-10); NRBC Flagged by Analyzer 0 % (0-5); Neutrophil # 3.49 X10^3/uL (2.7-7.7); Neutrophil % 41.8 % (47-70); Platelet Count 219 K/mm3 (150-450); RBC Distribution Width CV 12.1 % (11.6-14.6); RBC Distribution Width SD 43.9 fl (35.1-43.9); Red Blood Count 4.25 M/mm3 (4.6-6.2); White Blood Count 8.4 K/mm3 (4.4-11.0)
[2022-05-14 16:10] LABS: ALB/GLOB Ratio 1.1 RATIO (0.9-2.4); AST(SGOT) 21 U/L (15-37); Alanine Aminotransfer ALT/SGPT 23 U/L (16-61); Albumin, Serum 3.8 g/dL (3.2-5.0); Alkaline Phosphatase 66 U/L (45-117); Anion Gap 7 (5-15); BUN 16 mg/dL (7-18); BUN/Creat Ratio 15.4 RATIO (10-20); Calcium,Total 8.9 mg/dL (8.5-10.1); Chloride 106 mmol/L (98-107); Cholesterol 128 mg/dL (200); Creatinine, Serum 1.04 mg/dL (0.70-1.30); EST Glomerular Filtration Rate 74 mL/min (>60); Est Glom Filt Rate - Afr Amer 90 mL/min (>60); Globulin 3.5 g/dL (2.2-4.2); Glucose 99 mg/dL (74-106); High Density Lipoprotein 43 mg/dL; Protein, Total 7.3 g/dL (6.4-8.2); Sodium Level 137 mmol/L (136-145); T4 Free Direct 1.25 ng/dL (0.76-1.46); Thyroid Stim Hormone (TSH) 1.74 uIU/mL (0.358-3.74); Triglycerides 128 mg/dL; Very Low Density Lipoprotein 26 mg/dL (5-40)
== END | disposition home or self-care (01) ==
LOC: MFPLAB 13:52
PROVIDERS: PCP Family Medicine; Referring Provider Family Medicine; Visit Provider Family Medicine
DX: E78.5 Hyperlipidemia, unspecified (principal); E03.8 Other specified hypothyroidism
CPT/HCPCS: 36415; 80053; 80061; 84439; 84443; 85025

== ENCOUNTER → 2022-05-27 | Outpatient (CLI) | payer MEDICARE, OTHER, SELFPAY ==
--- NOTE | 2022-05-27 10:32 | RAD_ITS ---
STUDY: X-RAY - PELVIS AND BILATERAL HIPS REASON FOR EXAM: Male, 76 years old. Pain. TECHNIQUE: AP view of the pelvis.? 2 views of the right hip, and 2 views of the left hip were obtained. COMPARISON: None. FINDINGS: There is a non-specific bowel gas pattern. Phleboliths and postsurgical changes projecting over the right ilium. Osteopenia. Changes of posterior fusion at L5-S1. Normal bilateral iliac wings, sacroiliac joints and visualized sacrum. Normal bilateral superior and inferior pubic rami. Normal pubic symphysis. Normal bilateral ischial tuberosities. Normal visualized right femoral head. Normal right acetabulum. Normal right hip joint. Normal visualized left femoral head. Normal left acetabulum. Normal left hip joint. RAD/Hips B/L min 2 views w/ Pelvis IMPRESSION: Osteopenia with postsurgical changes of the lower lumbosacral spine. No acute abnormality. Electronically Signed: Bernard Gaston, at 9:29 EDT ,
== END | disposition home or self-care (01) ==
PROVIDERS: PCP Family Medicine; Visit Provider Family Medicine
DX: M25.551 Pain in right hip (principal); M25.552 Pain in left hip
CPT/HCPCS: 73521

== ENCOUNTER → 2022-09-17 | Outpatient (CLI) | payer MEDICARE, OTHER, SELFPAY ==
[2022-09-17 12:04] LABS: Absolute Lymphocyte Count 3.33 X10^3/uL (0.83-4.51); Absolute Neutrophil Count 4.3 X10^3/uL (2.0-7.7); Basophil# 0.03 X10^3/uL; Basophil% 0.4 % (0-1); Eosinophil# 0.07 X10^3/uL; Eosinophils% 0.8 % (0-5); Hematocrit 42.5 % (40-54); Hemoglobin 13.7 g/dL (13.0-16.5); Lymphocyte # 3.33 X10^3/ul (0.83-4.51); Lymphocyte % 40.4 % (19-41); Mean Corp Hgb Conc 32.2 g/dL (32-36); Mean Corpuscular Hgb 32.9 pg (27.0-32.0); Mean Corpuscular Volume 101.9 fL (80-94); Mean Platelet Vol. 10.5 fl (6.2-12.0); Monocyte# 0.54 X10^3/uL; Monocyte% 6.5 % (0-10); NRBC Flagged by Analyzer 0 % (0-5); Neutrophil # 4.27 X10^3/uL (2.7-7.7); Neutrophil % 51.8 % (47-70); Platelet Count 181 K/mm3 (150-450); RBC Distribution Width CV 12.4 % (11.6-14.6); RBC Distribution Width SD 46.5 fl (35.1-43.9); Red Blood Count 4.17 M/mm3 (4.6-6.2); White Blood Count 8.3 K/mm3 (4.4-11.0)
[2022-09-17 12:36] LABS: AST(SGOT) 28 U/L (15-37); Alanine Aminotransfer ALT/SGPT 27 U/L (16-61); Albumin, Serum 3.7 g/dL (3.2-5.0); Alkaline Phosphatase 68 U/L (45-117); Anion Gap 6 (5-15); BUN 16 mg/dL (7-18); BUN/Creat Ratio 13.2 RATIO (10-20); Calcium,Total 8.9 mg/dL (8.5-10.1); Chloride 106 mmol/L (98-107); Cholesterol 142 mg/dL (200); Creatinine, Serum 1.21 mg/dL (0.70-1.30); EST Glomerular Filtration Rate 62 mL/min (>60); Est Glom Filt Rate - Afr Amer 75 mL/min (>60); Globulin 3.7 g/dL (2.2-4.2); Glucose 101 mg/dL (74-106); High Density Lipoprotein 59 mg/dL; Potassium 4.1 mmol/L (3.5-5.1); Protein, Total 7.4 g/dL (6.4-8.2); Sodium Level 139 mmol/L (136-145); T4 Free Direct 1.33 ng/dL (0.76-1.46); Thyroid Stim Hormone (TSH) 1.99 uIU/mL (0.358-3.74); Triglycerides 70 mg/dL; Very Low Density Lipoprotein 14 mg/dL (5-40)
[2022-09-17 17:18] LABS: Hemoglobin A1c 5.9 % (3.8-5.6)
== END | disposition home or self-care (01) ==
LOC: MFPLAB 10:52
PROVIDERS: PCP Family Medicine; Visit Provider Family Medicine
DX: R73.09 Other abnormal glucose (principal); E03.8 Other specified hypothyroidism; E78.5 Hyperlipidemia, unspecified
CPT/HCPCS: 36415; 80053; 80061; 83036; 84439; 84443; 85025

== ENCOUNTER → 2022-10-03 | Outpatient (CLI) | payer MEDICARE, OTHER, SELFPAY ==
--- NOTE | 2022-10-03 07:20 | MRI_ITS ---
STUDY: MRI LUMBAR SPINE WITHOUT CONTRAST REASON FOR EXAM: Male, 76 years old. sacral pain x 2 months, h/o prior fusion l5-s1 TECHNIQUE: Standardized fat and water weighted pulse sequences were obtained in the sagittal and axial planes. COMPARISON: Lumbar spine x-rays September 25, 2022 FINDINGS: T12-L1: Normal endplates. Normal disc height, desiccation and normal morphology. Normal bilateral facet joints. Normal central canal and bilateral lateral recesses. Normal bilateral intervertebral neural foramina. Normal lumbar lordosis. There is no substantial scoliosis. Normal conus medullaris that terminates at T12 L1-2: Normal endplates. Normal disc height, hydration and morphology. Normal bilateral facet joints. Normal central canal and bilateral lateral recesses. Normal bilateral intervertebral neural foramina. L2-3: Normal endplates. Normal disc height, desiccation mild annular bulge with small left paracentral disc extrusion with inferior migration of disc fragment. Normal bilateral facet joints. Mild narrowing of the central canal. Normal bilateral lateral recesses. Mild bilateral neural foraminal encroachment.. L3-4: Normal endplates. Normal disc height, hydration and minor annular bulge with tiny central disc protrusion. Bilateral facet arthropathy.. Mild narrowing of the central canal. Normal bilateral lateral recesses. Mild bilateral neural foraminal encroachment L4-5: Normal endplates. Normal disc height, desiccation and normal morphology. Mild facet arthropathy.. Normal central canal and bilateral lateral recesses. Minor bilateral neural foraminal encroachment exaggerated by shortened pedicles L5-S1: Postop change status post bilateral laminectomy posterior fusion and disc spacer placement Grade 1 spondylolisthesis . Minor bulging disc osteophyte complex. facet arthropathy.. Normal central canal and bilateral lateral recesses. Mild bilateral neural foraminal encroachment Normal visualized sacral ala. Normal visualized paraspinous soft tissue structures. MRI/Spine Lumbar (Routine) IMPRESSION: No evidence for acute fracture or other significant bony pathology. Postsurgical changes at L5-S1 Mild multilevel spinal stenosis secondary to disc disease and bony hypertrophy. Findings as above Electronically Signed: Phill Carlisle MD at 22:03 EDT ,
== END | disposition home or self-care (01) ==
LOC: MRI 09:40
PROVIDERS: PCP Family Medicine; Referring Provider Orthopaedic Surgery; Visit Provider Orthopaedic Surgery
DX: Z98.1 Arthrodesis status (principal)
CPT/HCPCS: 72148

== ENCOUNTER → 2023-01-21 | Outpatient (CLI) | payer MEDICARE, OTHER, SELFPAY | END | disposition home or self-care (01) | LOC: MFPLAB 11:13 | PROVIDERS: PCP Family Medicine; Visit Provider Family Medicine | DX: Z00.00 Encounter for general adult medical examination without abnormal findings (principal) ==

== ENCOUNTER → 2023-03-09 | Outpatient (CLI) | payer MEDICARE, OTHER, SELFPAY ==
--- OUTSIDE RECORDS SUMMARY | 2023-03-09 16:03 | XMS RPT_ITS | CCD ---
Author Name Unknown Address [address] [place] [address] Organization [facility] Care Team Providers Care Sulfuric Acid Plant Supervisor Name Role Phone Keo Chong Unavailable Perez Arriaza Unavailable [phone] MISSIOS, SYMEON Unavailable Unavailable MISSIOS, SYMEON Unavailable Unavailable NO REFERRING DR Unavailable Unavailable MISSIOS, SYMEON Unavailable Unavailable MISSIOS, SYMEON Unavailable Unavailable Edu Glover Primary Care Provider Blas Oseguera Unavailable Allergies Allergy Classification Reported Allergen(s) Allergy Type Date of Onset Reaction(s) Facility (2 sources) naproxen Drug Allergy 12-24-2016 [facility] Work Phone: Medications Completed/Discontinued Medications Medication Drug Class(es) Dates Sig (Normalized) Sig (Original) albuterol 0.83 mg/ml inhalant solution (2 sources) beta2-Adrenergic Agonist Start: 12-24-2016 ALBUTEROL SULFATE (2.5 MG/3ML) 0.083% NEBU 1-2 puffs every 4-6 hours as needed ALBUTEROL SULFATE [id number] Perez COYLE amoxicillin 875 mg / clavulanate 125 mg oral tablet (2 sources) Penicillin-class Antibacterial Start: 12-24-2016 AUGMENTIN 875-125 MG TABS 1 tablet twice a day AMOXICILLIN-POT CLAVULANATE [id number] Perez COYLE aspirin 81 mg oral tablet (2 sources) Nonsteroidal Anti-inflammatory Drug Start: 12-24-2016 ASPIRIN 81 MG TABS as directed ASPIRIN [id number] Perez COYLE loratadine (2 sources) Start: 12-24-2016 ALLERGY 10 MG TBDP as directed LORATADINE [id number] Perez COYLE Problems Active Problems Problem Classification Problem Date Documented Date Episodic/Chronic Spondylosis; intervertebral disc disorders; other back problems (2 sources) Spondylosis without myelopathy or radiculopathy, thoracic region; Translations: [Other intervertebral disc displacement, thoracic region] Onset: 09-01-2016 Chronic Unclassified (1 source) 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; Translations: [OTH CERVICAL DISC DISPL] Onset: 09-01-2016 Past or Other Problems Problem Classification Problem Date Documented Date Episodic/Chronic Chronic obstructive pulmonary disease and bronchiectasis (2 sources) Bronchitis; Translations: [Bronchitis, not specified as acute or chronic] Onset: 12-24-2016 12-24-2016 Episodic Other lower respiratory disease (2 sources) Cough; Translations: [Cough] Onset: 12-24-2016 12-24-2016 Episodic Other non-traumatic joint disorders (1 source) Pain in left shoulder; Translations: [PAIN IN LEFT SHOULDER] Onset: 09-01-2016 Episodic Spondylosis; intervertebral disc disorders; other back problems (5 sources) Pain in thoracic spine; Translations: [Connective tissue and disc stenosis of intervertebral foramina of cervical region] Onset: 09-01-2016 Episodic Results Test Name Value Interpretation Reference Range Facil ity Vital Signs Date Time Vital Sign Value Performing Clinician Faci lity 12-24-2016 15:28-0400 BMI (Body Mass Index) 27.4 kg/m2 Perez OCYLE [facility] Work Phone: 12-24-2016 15:28-0400 Body Temperature 98.8 [degF] Perez COYLE [facility] Work Phone: 12-24-2016 15:28-0400 BP Diastolic 72 mm[Hg] Perez COYLE [facility] Work Phone: 12-24-2016 15:28-0400 BP Systolic 112 mm[Hg] Perez COYLE [facility] Work Phone: 12-24-2016 15:28-0400 Height 177.8 cm Perez COYLE [facility] Work Phone: 12-24-2016 15:28-0400 Pulse (Heart Rate) 63 /min Perez COYLE [facility] Work Phone: 12-24-2016 15:28-0400 Respiratory Rate 14 /min Perez COYLE [facility] Work Phone: 12-24-2016 15:28-0400 Weight 86.64 kg Perez COYLE [facility] Work Phone: Encounters Encounter Date Encounter Type Care Provider Facility Start: 12-17-2021 Telephone encounter Fatou louise MD Work Phone: Neurology Plan of Treatment Date Care Activity Detail Author Start: 10-23-2021 Influenza vaccination INFLUENZA (#1) [facility] Start: 02-22-2021 ADVANCE DIRECTIVE DISCUSSION ADVANCE DIRECTIVE DISCUSSION [facility] Start: 02-22-2021 DEPRESSION ASSESSMENT DEPRESSION ASSESSMENT [facility] Start: 12-24-2016 End: 12-24-2016 Appointment Appointment [facility] Work Phone: Start: 12-24-2016 End: 12-24-2016 Chest x-ray X-Ray, Chest, PA & Lateral [facility] Work Phone: Start: 12-14-2012 PNEUMOCOCCAL: 65+ (1 - PCV) PNEUMOCOCCAL: 65+ (1 - PCV) [facility] Start: 12-14-1997 SHINGRIX VACCINE (1 of 2) SHINGRIX VACCINE (1 of 2) [facility] Start: 12-14-1992 COLOGUARD (FIT-DNA) COLOGUARD (FIT-DNA) [facility] Start: 12-14-1992 Colonoscopy COLONOSCOPY [facility] Start: 12-14-1992 COLORECTAL CANCER SCREENING COLORECTAL CANCER SCREENING [facility] Start: 12-14-[address] COLONOGRAPHY [facility] Start: 12-14-1992 DIABETES SCREEN DIABETES SCREEN [facility] Start: 12-14-1992 FECAL OCCULT BLOOD FECAL OCCULT BLOOD [facility] Start: 12-14-1992 SIGMOIDOSCOPY SIGMOIDOSCOPY [facility] Start: 12-14-1982 LIPID SCREEN LIPID SCREEN [facility] Start: 12-14-1966 Urine microalbumin profile DTAP,TDAP,TD (1 - Tdap) [facility] Start: 12-14-1965 HEPATITIS C SCREENING HEPATITIS C SCREENING [facility] Start: 06-14-1948 COVID-19 VACCINE (#1) COVID-19 VACCINE (#1) [facility] Payers Date Payer Category Payer Medicare [employer] MEDICARE [employer] GOLD PLUS [id number] 2012-Present [phone] [address] [address] [place] [address] HMO [id number] Medicare [id number] Social History Date Type Detail Facility Tobacco smoking status NHIS Tobacco smoking consumption unknown [facility] Work Phone: Start: 1945 Sex Assigned At Male [facility] Note 12-17-2021 Telephone Encounter - Munira Gagnon Pss - 12/17/2021 10:20 AM EDTTelephone Encounter - Julia Gonzales - 12/17/2021 8:39 AM EDT Note Date & Type Note Facility 12-17-2021 Miscellaneous Notes Formattin g of this note might be different from the original. The patient hasn't been seen by the provider. The patient is scheduled for a new patient appointment on 01/22/22. Please provide the medical records for the patient's appointment. Received MRI Brain with and without contrast from [facility]. Paperwork sent to Dr. Siu for review. For pt 01/22/22 apt. documented in this encounter [facility] Note 12-10-2021 Telephone Encounter - Munira Gagnon Pss - 12/10/2021 12:53 PM EDT Note Date & Type Note Facility 12-10-2021 Miscellaneous Notes Formattin g of this note might be different from the original. Left the patient a voice message, mailed a reminder, and sent my chart message about the canceled appointment and new appointment. documented in this encounter [facility] Summary Purpose Family History No Family History Records FoundNo Family History Records FoundNo Family History Records Found Advance Directives No Advanced Directives Records FoundNo Advanced Directives Records FoundNo Advanced Directives Records Found Additional Source Comments (unrecognized sect ion and content) No Status Records FoundNo Status Records FoundNo Status Records Found INFORMATION SOURCE (unrecogn ized section and content) DATE CREATED AUTHOR AUTHOR'S ORGANIZ ATION 08/18/2017 [facility] DATE CREATED AUTHOR AUTHOR'S ORGANIZ ATION 12/18/2021 [facility] Source Comments (unrecognize d section and content) In the event this informatio n is protected by the Federal Confidentiality of Alcohol and Drug Abuse Patient Records regulations: The Federal rules restrict any use of the information to criminally investigate or prosecute any alcohol or drug abuse patient.[facility] the event this information is protected by the Federal Confidentiality of Alcohol and Drug Abuse Patient Records regulations: The Federal rules restrict any use of the information to criminally investigate or prosecute any alcohol or drug abuse patient.[facility] Reason for Visit (unrecogniz ed section and content) Reason Comments Patient Update MRI results Care Teams (unrecognized sec tion and content) Sulfuric Acid Plant Supervisor Relationship Specialty Start Date End Date Edu Glover [address] [place] [address] PCP - General Family Medicine 11/05/21 Blas Oseguera [address] [place] [address] Referring Ent - Otolaryngology 11/05/21 FOR RECORDS PERTAINING TO PATIENTS WHO ARE OR HAVE BEEN ENROLLED IN A CHEMICAL DEPENDENCY/SUBSTANCEABUSE PROGRAM, SOME INFORMATION MAY BE OMITTED. This clinical summary was aggregated from multiple sources. Caution should be exercised in using it in the provision of clinical care. This summary normalizes information from multiple sources, and as a consequence, information in this document may materially change the coding, format and clinical context of patient data. In addition, data may be omitted in some cases. CLINICAL DECISIONS SHOULD BE BASED ON THE PRIMARY CLINICAL RECORDS. [facility] [employer] provides no warranty or guarantee of the accuracy or completeness of information in this document.
[2023-03-09 16:25] LABS: PSA,Total - Annual Screen 1.36 ng/mL (0.00-4.00)
== END | disposition home or self-care (01) ==
LOC: MFPLAB 14:04
PROVIDERS: PCP Family Medicine; Visit Provider Family Medicine
DX: Z12.5 Encounter for screening for malignant neoplasm of prostate (principal)
CPT/HCPCS: 36415; 84153; G0103

== ENCOUNTER → 2023-03-16 | Outpatient (CLI) | payer MEDICARE, OTHER, SELFPAY ==
[2023-03-16 15:55] LABS: Absolute Lymphocyte Count 2.78 X10^3/uL (0.83-4.51); Absolute Neutrophil Count 3.9 X10^3/uL (2.0-7.7); Basophil# 0.05 X10^3/uL; Basophil% 0.7 % (0-1); Eosinophils% 1.4 % (0-5); Hematocrit 42.2 % (40-54); Hemoglobin 13.4 g/dL (13.0-16.5); Lymphocyte # 2.78 X10^3/ul (0.83-4.51); Lymphocyte % 37.7 % (19-41); Mean Corp Hgb Conc 31.8 g/dL (32-36); Mean Corpuscular Hgb 31.9 pg (27.0-32.0); Mean Corpuscular Volume 100.5 fL (80-94); Mean Platelet Vol. 11.8 fl (6.2-12.0); Monocyte# 0.58 X10^3/uL; Monocyte% 7.9 % (0-10); NRBC Flagged by Analyzer 0 % (0-5); Neutrophil # 3.85 X10^3/uL (2.7-7.7); Neutrophil % 52.2 % (47-70); Platelet Count 155 K/mm3 (150-450); RBC Distribution Width CV 11.9 % (11.6-14.6); RBC Distribution Width SD 44.2 fl (35.1-43.9); White Blood Count 7.4 K/mm3 (4.4-11.0)
[2023-03-16 16:57] LABS: Hemoglobin A1c 5.6 % (3.8-5.6)
[2023-03-16 17:00] LABS: ALB/GLOB Ratio 1.1 RATIO (0.9-2.4); AST(SGOT) 24 U/L (15-37); Alanine Aminotransfer ALT/SGPT 19 U/L (16-61); Albumin, Serum 3.6 g/dL (3.2-5.0); Alkaline Phosphatase 73 U/L (45-117); Anion Gap 4 (5-15); BUN 16 mg/dL (7-18); BUN/Creat Ratio 12.9 RATIO (10-20); Calcium,Total 8.8 mg/dL (8.5-10.1); Chloride 110 mmol/L (98-107); Cholesterol 133 mg/dL (200); Creatinine, Serum 1.24 mg/dL (0.70-1.30); EST Glomerular Filtration Rate 60 mL/min (>60); Est Glom Filt Rate - Afr Amer 73 mL/min (>60); Globulin 3.3 g/dL (2.2-4.2); Glucose 116 mg/dL (74-106); High Density Lipoprotein 47 mg/dL; Potassium 4.1 mmol/L (3.5-5.1); Protein, Total 6.9 g/dL (6.4-8.2); Sodium Level 137 mmol/L (136-145); T4 Free Direct 1.23 ng/dL (0.76-1.46); Thyroid Stim Hormone (TSH) 0.44 uIU/mL (0.358-3.74); Triglycerides 82 mg/dL; Very Low Density Lipoprotein 16 mg/dL (5-40)
== END | disposition home or self-care (01) ==
LOC: MTLAB 11:22
PROVIDERS: PCP Family Medicine; Referring Provider Family Medicine; Visit Provider Family Medicine
DX: E03.8 Other specified hypothyroidism (principal); R73.02 Impaired glucose tolerance (oral)
CPT/HCPCS: 36415; 80053; 80061; 83036; 84439; 84443; 85025

== ENCOUNTER → 2023-09-08 | Outpatient (CLI) | payer MEDICARE, OTHER, SELFPAY ==
[2023-09-08 17:43] LABS: Absolute Lymphocyte Count 3.38 X10^3/uL (0.83-4.51); Basophil# 0.04 X10^3/uL; Basophil% 0.6 % (0-1); Eosinophil# 0.13 X10^3/uL; Eosinophils% 1.8 % (0-5); Hematocrit 41.9 % (40-54); Hemoglobin 13.1 g/dL (13.0-16.5); Lymphocyte # 3.38 X10^3/ul (0.83-4.51); Lymphocyte % 47.7 % (19-41); Mean Corp Hgb Conc 31.3 g/dL (32-36); Mean Corpuscular Hgb 32.3 pg (27.0-32.0); Mean Corpuscular Volume 103.5 fL (80-94); Mean Platelet Vol. 11.4 fl (6.2-12.0); Monocyte# 0.57 X10^3/uL; Monocyte% 8.1 % (0-10); NRBC Flagged by Analyzer 0 % (0-5); Neutrophil # 2.95 X10^3/uL (2.7-7.7); Neutrophil % 41.7 % (47-70); Platelet Count 166 K/mm3 (150-450); RBC Distribution Width CV 11.9 % (11.6-14.6); RBC Distribution Width SD 45.2 fl (35.1-43.9); Red Blood Count 4.05 M/mm3 (4.6-6.2); White Blood Count 7.1 K/mm3 (4.4-11.0)
[2023-09-08 17:59] LABS: ALB/GLOB Ratio 1.1 RATIO (0.9-2.4); AST(SGOT) 23 U/L (15-37); Alanine Aminotransfer ALT/SGPT 23 U/L (16-61); Albumin, Serum 3.8 g/dL (3.2-5.0); Alkaline Phosphatase 70 U/L (45-117); Anion Gap 5 (5-15); BUN 18 mg/dL (7-18); BUN/Creat Ratio 15.8 RATIO (10-20); Calcium,Total 9.2 mg/dL (8.5-10.1); Chloride 105 mmol/L (98-107); Cholesterol 136 mg/dL (200); Creatinine, Serum 1.14 mg/dL (0.70-1.30); EST Glomerular Filtration Rate 66 mL/min (>60); Est Glom Filt Rate - Afr Amer 80 mL/min (>60); Globulin 3.6 g/dL (2.2-4.2); Glucose 85 mg/dL (74-106); Hemoglobin A1c 5.3 % (3.8-5.6); High Density Lipoprotein 53 mg/dL; Potassium 4.2 mmol/L (3.5-5.1); Protein, Total 7.4 g/dL (6.4-8.2); Sodium Level 139 mmol/L (136-145); Thyroid Stim Hormone (TSH) 2.63 uIU/mL (0.358-3.74); Triglycerides 162 mg/dL; Very Low Density Lipoprotein 32 mg/dL (5-40)
== END | disposition home or self-care (01) ==
LOC: MFPLAB 14:55
PROVIDERS: PCP Family Medicine; Visit Provider Family Medicine
DX: E78.5 Hyperlipidemia, unspecified (principal); E03.8 Other specified hypothyroidism; R73.02 Impaired glucose tolerance (oral)
CPT/HCPCS: 36415; 80053; 80061; 83036; 84439; 84443; 85025

== ENCOUNTER → 2024-01-11 | Outpatient (CLI) | payer MEDICARE, OTHER, SELFPAY ==
[2024-01-11 15:05] LABS: Absolute Lymphocyte Count 3.18 X10^3/uL (0.83-4.51); Absolute Neutrophil Count 2.5 X10^3/uL (2.0-7.7); Basophil# 0.05 X10^3/uL; Basophil% 0.8 % (0-1); Eosinophil# 0.13 X10^3/uL; Hematocrit 41.8 % (40-54); Hemoglobin 13.2 g/dL (13.0-16.5); Lymphocyte # 3.18 X10^3/ul (0.83-4.51); Lymphocyte % 48.8 % (19-41); Mean Corp Hgb Conc 31.6 g/dL (32-36); Mean Corpuscular Hgb 32.2 pg (27.0-32.0); Mean Platelet Vol. 11.4 fl (6.2-12.0); Monocyte# 0.61 X10^3/uL; Monocyte% 9.4 % (0-10); NRBC Flagged by Analyzer 0 % (0-5); Neutrophil # 2.53 X10^3/uL (2.7-7.7); Neutrophil % 38.8 % (47-70); Platelet Count 132 K/mm3 (150-450); RBC Distribution Width CV 12.2 % (11.6-14.6); RBC Distribution Width SD 45.6 fl (35.1-43.9); White Blood Count 6.5 K/mm3 (4.4-11.0)
[2024-01-11 15:46] LABS: ALB/GLOB Ratio 1.2 RATIO (0.9-2.4); AST(SGOT) 29 U/L (15-37); Alanine Aminotransfer ALT/SGPT 17 U/L (16-61); Albumin, Serum 3.8 g/dL (3.2-5.0); Alkaline Phosphatase 74 U/L (45-117); Anion Gap 4 (5-15); BUN 20 mg/dL (7-18); BUN/Creat Ratio 15.9 RATIO (10-20); Chloride 108 mmol/L (98-107); Cholesterol 140 mg/dL (200); Creatinine, Serum 1.26 mg/dL (0.70-1.30); EST Glomerular Filtration Rate 59 mL/min (>60); Est Glom Filt Rate - Afr Amer 72 mL/min (>60); Globulin 3.3 g/dL (2.2-4.2); Glucose 87 mg/dL (74-106); High Density Lipoprotein 53 mg/dL; Protein, Total 7.1 g/dL (6.4-8.2); Sodium Level 139 mmol/L (136-145); T4 Free Direct 1.01 ng/dL (0.76-1.46); Triglycerides 74 mg/dL; Very Low Density Lipoprotein 15 mg/dL (5-40)
[2024-01-11 16:26] LABS: Hemoglobin A1c 5.6 % (3.8-5.6)
== END | disposition home or self-care (01) ==
LOC: MFPLAB 11:32
PROVIDERS: PCP Family Medicine; Visit Provider Family Medicine
DX: R73.02 Impaired glucose tolerance (oral) (principal); E03.8 Other specified hypothyroidism; E78.5 Hyperlipidemia, unspecified
CPT/HCPCS: 36415; 80053; 80061; 83036; 84439; 84443; 85025

== ENCOUNTER → 2024-05-04 | Outpatient (CLI) | payer MEDICARE, OTHER, SELFPAY ==
[2024-05-04 15:18] LABS: Absolute Lymphocyte Count 3.07 X10^3/uL (0.83-4.51); Absolute Neutrophil Count 3.4 X10^3/uL (2.0-7.7); Basophil# 0.06 X10^3/uL; Basophil% 0.8 % (0-1); Eosinophil# 0.07 X10^3/uL; Hematocrit 38.8 % (40-54); Hemoglobin 12.9 g/dL (13.0-16.5); Lymphocyte # 3.07 X10^3/ul (0.83-4.51); Lymphocyte % 42.9 % (19-41); Mean Corp Hgb Conc 33.2 g/dL (32-36); Mean Corpuscular Hgb 32.3 pg (27.0-32.0); Mean Corpuscular Volume 97.2 fL (80-94); Monocyte# 0.52 X10^3/uL; Monocyte% 7.3 % (0-10); NRBC Flagged by Analyzer 0 % (0-5); Neutrophil # 3.42 X10^3/uL (2.7-7.7); Neutrophil % 47.9 % (47-70); Platelet Count 179 K/mm3 (150-450); RBC Distribution Width CV 12.1 % (11.6-14.6); Red Blood Count 3.99 M/mm3 (4.6-6.2); White Blood Count 7.2 K/mm3 (4.4-11.0)
[2024-05-04 18:31] LABS: Hemoglobin A1c 5.9 % (<=5.6)
[2024-05-04 21:25] LABS: ALB/GLOB Ratio 1.6 RATIO (0.9-2.4); AST(SGOT) 25 U/L (<=37); Alanine Aminotransfer ALT/SGPT 14 U/L (<=46); Albumin, Serum 4.3 g/dL (3.4-4.8); Alkaline Phosphatase 71 U/L (40-129); Anion Gap 13 (5-15); BUN 18 mg/dL (4-19); BUN/Creat Ratio 14.9 RATIO (10-20); Calcium,Total 9.4 mg/dL (7.6-11.0); Chloride 103 mmol/L (98-108); Creatinine, Serum 1.21 mg/dL (0.70-1.20); EST Glomerular Filtration Rate 62 (>60); Globulin 2.7 g/dL (2.2-4.2); Glucose 121 mg/dL (70-99); Potassium 4.5 mmol/L (3.3-5.1); Sodium Level 136 mmol/L (133-145); Total Bilirubin 0.34 mg/dL (0.00-1.30)
[2024-05-04 21:47] LABS: Cholesterol 135 mg/dL (<=200); High Density Lipoprotein 55 mg/dL; Low Density Lipoprotein Calc. 69 mg/dL; Triglycerides 57 mg/dL; Very Low Density Lipoprotein 11 mg/dL (5-40); cholesterol:hdl ratio screen 2.48
[2024-05-06 12:19] LABS: Ferritin 210 ng/mL (37-417); Vitamin B12 313 pg/mL (180-914)
[2024-05-06 13:18] LABS: Iron 105 ug/dL (65-175); Iron Binding Capacity,Total 271 ug/dL (250-450); Iron Binding Capacity,Unsat 166 ug/dL (228-428)
== END | disposition home or self-care (01) ==
PROVIDERS: PCP Family Medicine; Referring Provider Family Medicine; Visit Provider Family Medicine
DX: D64.9 Anemia, unspecified (principal); R73.02 Impaired glucose tolerance (oral); E78.5 Hyperlipidemia, unspecified; E03.8 Other specified hypothyroidism
CPT/HCPCS: 36415; 80053; 80061; 82607; 82728; 83036; 83540; 83550; 84439; 84443; 85025

== ENCOUNTER → 2024-06-08 | Outpatient (CLI) | payer MEDICARE, OTHER, SELFPAY ==
[2024-06-08 10:22] LABS: Absolute Lymphocyte Count 3.38 X10^3/uL (0.83-4.51); Absolute Neutrophil Count 3.2 X10^3/uL (2.0-7.7); Basophil# 0.05 X10^3/uL; Basophil% 0.7 % (0-1); Eosinophil# 0.13 X10^3/uL; Eosinophils% 1.8 % (0-5); Hematocrit 41.5 % (40-54); Hemoglobin 13.6 g/dL (13.0-16.5); Lymphocyte # 3.38 X10^3/ul (0.83-4.51); Lymphocyte % 46.1 % (19-41); Mean Corp Hgb Conc 32.8 g/dL (32-36); Mean Corpuscular Hgb 32.5 pg (27.0-32.0); Mean Corpuscular Volume 99.3 fL (80-94); Mean Platelet Vol. 11.2 fl (6.2-12.0); Monocyte# 0.56 X10^3/uL; Monocyte% 7.6 % (0-10); NRBC Flagged by Analyzer 0 % (0-5); Neutrophil # 3.19 X10^3/uL (2.7-7.7); Neutrophil % 43.5 % (47-70); Platelet Count 171 K/mm3 (150-450); RBC Distribution Width CV 12.2 % (11.6-14.6); RBC Distribution Width SD 44.3 fl (35.1-43.9); Red Blood Count 4.18 M/mm3 (4.6-6.2); White Blood Count 7.3 K/mm3 (4.4-11.0)
[2024-06-08 10:32] LABS: Hemoglobin A1c 5.7 % (<=5.6)
[2024-06-08 10:59] LABS: ALB/GLOB Ratio 1.5 RATIO (0.9-2.4); AST(SGOT) 24 U/L (<=37); Alanine Aminotransfer ALT/SGPT 14 U/L (<=46); Albumin, Serum 4.2 g/dL (3.4-4.8); Alkaline Phosphatase 64 U/L (40-129); Anion Gap 11 (5-15); BUN 14 mg/dL (4-19); BUN/Creat Ratio 12.6 RATIO (10-20); Calcium,Total 9.2 mg/dL (7.6-11.0); Chloride 103 mmol/L (98-108); Cholesterol 115 mg/dL (<=200); Creatinine, Serum 1.11 mg/dL (0.70-1.20); EST Glomerular Filtration Rate 69 (>60); Globulin 2.9 g/dL (2.2-4.2); Glucose 88 mg/dL (70-99); High Density Lipoprotein 48 mg/dL; Low Density Lipoprotein Calc. 52 mg/dL; PSA,Total - Annual Screen 1.17 ng/mL (0.02-4.00); Potassium 4.4 mmol/L (3.3-5.1); Protein, Total 7.1 g/dL (5.9-8.4); Sodium Level 138 mmol/L (133-145); Total Bilirubin 0.55 mg/dL (0.00-1.30); Triglycerides 73 mg/dL; Very Low Density Lipoprotein 15 mg/dL (5-40); cholesterol:hdl ratio screen 2.39
== END | disposition home or self-care (01) ==
LOC: MFPLAB 08:00
PROVIDERS: PCP Family Medicine; Referring Provider Family Medicine; Visit Provider Family Medicine
DX: E78.5 Hyperlipidemia, unspecified (principal); E03.8 Other specified hypothyroidism; D64.9 Anemia, unspecified; R73.02 Impaired glucose tolerance (oral); Z12.5 Encounter for screening for malignant neoplasm of prostate
CPT/HCPCS: 36415; 80053; 80061; 83036; 84153; 84439; 84443; 85025; G0103

== ENCOUNTER → 2024-07-05 | Outpatient (CLI) | payer MEDICARE, OTHER, SELFPAY ==
--- NOTE | 2024-07-05 12:38 | NEURO_ITS ---
NCS and/or EMG Patient Report Ordering Doctor: Amadeo Longo DATE OF SERVICE: 07/05/24 Nacho presents for electrodiagnostic testing of the right upper limb. 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 He denies numbness. He reports intermittent wrist pain. Electrodiagnostic findings: Right median motor nerve demonstrates normal distal latency, amplitude and conduction velocity. Right ulnar motor nerve demonstrates normal distal latency amplitude and conduction velocity. Normal right median and ulnar F?waves. Sensory responses are within normal limits. Needle EMG testing was performed in the right upper limb. All muscles tested showed no evidence of denervation with normal motor unit action potentials. Electrodiagnostic impression: This is a normal electrodiagnostic study of the right upper limb. There is no electrodiagnostic evidence for peripheral neuropathy, including carpal tunnel or cubital tunnel syndrome. There is no electrodiagnostic evidence for cervical radiculopathy. Multi Select Codes Neurology Neurology Interp Codes: 71699-57 Musc test done w/n test comp (interp) and 09699-93 Nrv cndj test 7-8 studies (interp)
== END | disposition home or self-care (01) ==
PROVIDERS: PCP Family Medicine; Referring Provider Student in an Organized Health Care Education/Training Program; Visit Provider Student in an Organized Health Care Education/Training Program
DX: R20.2 Paresthesia of skin (principal)
CPT/HCPCS: 95886; 95910

== ENCOUNTER 2024-07-13 10:00 | Outpatient (RCR) | payer MEDICARE, OTHER, SELFPAY ==
--- NOTE | 2024-04-04 13:21 | HP.OTEVAL ---
Patient's Visit Information Visit Information Visit Information: SILVIA URIBE II is a 78 year old M, referred to Occupational Therapy by Dr. Amadeo Longo DO, with a diagnosis of unilateral primary osteo of cmc R, osteo of R wrist. 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 Pt states he received an injection about a year ago and then 2 injections last week. Pt states these help until he starts doing repetitive motions again. Pt does report per x ray there was a small tear at middle point of dorsal wrist. pt states he has worn a carpal tunnel brace. pt has tried to modify things at home to assist with pain in wrist. pt is R hand dominant. Pain R wrist: Current Pain Intensity: 0 Pain Intensity Range: 6 Objective Objective/Observation: pt arrives no wrist brace no visible swelling of R wrist noted ROM Elbow: wfl Forearm: wfl Wrist: R 55/50 L 55/55 MP: R 55 L 50 IP: R 60 L 65 Radial Abduction: R 70 L 70 Opposition: wfl ROM Comments: able to make full composite fist B R RD [address] 35 UD 35 Strength Pipe Coverer Helper: R 65# L 90# Lateral Pinch: R 13# L 13# Tripod Pinch: R 12# L 12# Edema Wrist: R 17 cm L 16.5 cm Sensation Sensation Comments: denies numbness and tingling states a small bit in IF Quick DASH-Disab of Arm,Shoulder& Hand Quick DASH Score: 54.5450 Goals Goal:ROM equal to unaffected hand: Yes Goal:Pipe Coverer Helper/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 at least 75% of unaffected hand: Yes Goal:No pain with affected hand use: Yes Goal:Full use of affected hand in daily activities including work: Yes Comment: QUICK DASH Other Goal: pt will improve quick dash score by 10 points or more for increased functional use of RUE Pt will verbalize/ demonstrate 100% accuracy in proper R wrist bracing for joint protection by third session Pt will verbalize/ demonstrate 100% accuracy in proper joint positioning and protection techniques by discharge Rehabilitation General Assessment: This 78 year old male arrives with dx of OA R cmc and wrist. pt presents with slight difference in ROM, decreased strength of R hand, increased pain and swelling decreased functional use of R dominant side indicating need for OT services 1-2x a week for 4-6 weeks. Rehabilitation Potential: Good Anticipated Interventions Anticipated Interventions: A/AAROM/PROM, Strengthening, Triggerpoint Release, Modalities, Orthoses, Joint Protection/Energy Conservation, Education re Diagnosis and Home Program Visit Plan Frequency: 1-2x /Week Duration: 4-6 Weeks General Plan: AROM gentle isometric thumb abduction / IF abduction trigger point release bracing soft tissue mobilization joint protection pain management TEXT: Thank you for the opportunity to evaluate your patient. For Medicare and Medicare HMO plans, please review the plan of care and approve it. It will need to be FAXED BACK to us at [phone] for Medicare purposes. Please let me know if there are questions or concerns regarding this plan of care. Physician Signature: Date:
--- NOTE | 2024-05-18 11:16 | HP.OTREVAL ---
Re-Evaluation Intro: Dr. Amadeo Longo, DO, It has been my pleasure to treat SILVIA URIBE II over the last 14 visits for unilateral primary osteo of cmc R, osteo of R wrist. Please see the progress note below for an update on the occupational therapy plan of care! Subjective Subjective: pt arrives doing well no changes today last scheduled visit. POC extended with reduction in frequency to 1x a week for 4 weeks plan to focus on PRE as tolerated and transition to HEP. 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 R 85# L 90# lateral R 12# L 11# tripod R 12# L 8# R wrist RD 25 degrees UD 45 degrees Plan Plan Frequency: 1x/Week Duration: 4 Weeks Plan: wrist stabilization bracing pain management POC now 1x a week for 4 weeks focus on HEP as well as PRE to tolerance wrist in neutral position Goals Goals Patient Goals: Regain Mobility, Regain Strength, Decrease Pain, Decrease Swelling/Stiffness, Use Hand/Wrist/Arm Normally Again, Increase ROM, Resume Former Household Responsibilities (Cooking,Cleaning,Yard, etc.) and Resume Hobbies Goal:ROM equal to unaffected hand: Yes Goal Progress: Progressing Goal:Griddle Attendant/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 at least 75% of unaffected hand: Yes Goal Progress: Progressing Goal:No pain with affected hand use: Yes Goal Progress: Progressing Goal:Full use of affected hand in daily activities including work: Yes Goal Progress: Progressing Other Goal: pt will improve quick dash score by 10 points or more for increased functional use of RUE Pt will verbalize/ demonstrate 100% accuracy in proper R wrist bracing for joint protection by third session Pt will verbalize/ demonstrate 100% accuracy in proper joint positioning and protection techniques by discharge progressing Anticipated Interventions Anticipated Interventions Anticipated Interventions: A/AAROM/PROM, Strengthening, Triggerpoint Release, Modalities, Orthoses, Joint Protection/Energy Conservation, Education re Diagnosis and Home Program Re-Evaluation Ending Re-evaluation ending: Please do not hesitate to contact me at [phone] by phone or if you have questions or concerns regarding this new plan of care! Sincerely, Keely Styles
--- NOTE | 2024-06-20 10:20 | HP.OTREVAL ---
Re-Evaluation Intro: Dr. Amadeo Longo, DO, It has been my pleasure to treat SILVIA URIBE II over the last 18 visits for unilateral primary osteo of cmc R, osteo of R wrist. Please see the progress note below for an update on the occupational therapy plan of care! Subjective Subjective: pt arrives to session: states he feels he had set back. 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 85# a reduction from 90# lateral R 12# now 20# L 11# now 20# tripod R 12# now 18# L 8# now 14# R wrist RD 25 degrees UD 45 degrees (May 18, 2024) R wrist RD 15* UD 30* current right wrist pain will increase 6/10 with use at times Plan Plan Frequency: 1-2x /Week Duration: 4 Weeks Plan: wrist stabilization bracing pain management POC now 1-2 x a week for 4 weeks focus on HEP as well as PRE to tolerance wrist in neutral position Goals Goals Patient Goals: Regain Mobility, Regain Strength, Decrease Pain, Decrease Swelling/Stiffness, Use Hand/Wrist/Arm Normally Again, Increase ROM, Resume Former Household Responsibilities (Cooking,Cleaning,Yard, etc.) and Resume Hobbies Goal:ROM equal to unaffected hand: Yes Goal Progress: Progressing 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: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/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 at least 75% of unaffected hand: Yes Goal Progress: Progressing Goal:No pain with affected hand use: Yes Goal Progress: Progressing Goal:Full use of affected hand in daily activities including work: Yes Goal Progress: Progressing Other Goal: pt will improve quick dash score by 10 points or more for increased functional use of RUE Pt will verbalize/ demonstrate 100% accuracy in proper R wrist bracing for joint protection by third session Pt will verbalize/ demonstrate 100% accuracy in proper joint positioning and protection techniques by discharge progressing Anticipated Interventions Anticipated Interventions Anticipated Interventions: A/AAROM/PROM, Strengthening, Triggerpoint Release, Modalities, Orthoses, Joint Protection/Energy Conservation, Education re Diagnosis and Home Program Re-Evaluation Ending Re-evaluation ending: Please do not hesitate to contact me at [phone] by phone or if you have questions or concerns regarding this new plan of care! Sincerely, Maeve Hammond, OTR/L, CHT
--- NOTE | 2024-10-24 09:47 | HP.OT.NRP ---
Patient Information Patient Information: SILVIA URIBE II was seen in my office for initial evaluation on 04/04/24. The following Plan of Care was established for this patient: POC Established Initial Frequency: 1-2x /Week Initial Duration: 4 Weeks Plan: wrist stabilziation bracing pain manabement POC now 1-2 x a week for 4 weeks with focus on HEP Anticipated Interventions Anticipated Interventions: A/AAROM/PROM, Strengthening, Triggerpoint Release, Modalities, Orthoses, Joint Protection/Energy Conservation, Education re Diagnosis and Home Program Last Seen Last Seen: This patient was last seen in our office 07/13/24. 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 Pt with progress made throughout POC in pain reduction improved ROM as well as strength. improved functional use of R UE. discharge from OT at this time due to lapse in time of services. At this point I will be discontinuing this patient from occupational therapy. I would be happy to see this patient again in the future if found appropriate by the physician. Thank you! Keely Styles
== END 2024-07-13 19:00 | disposition home or self-care (01) ==
LOC: OT 10:00
PROVIDERS: PCP Family Medicine; Referring Provider Student in an Organized Health Care Education/Training Program; Visit Provider Student in an Organized Health Care Education/Training Program
DX: M18.11 Unilateral primary osteoarthritis of first carpometacarpal joint, right hand (principal); M19.031 Primary osteoarthritis, right wrist
CPT/HCPCS: 97035; 97110; 97140; 97165; 97530

== ENCOUNTER → 2024-09-25 | Outpatient (CLI) | payer MEDICARE, OTHER, SELFPAY ==
--- NOTE | 2024-09-25 10:04 | CT_ITS ---
PROCEDURE: CHEST WITHOUT CONTRAST 09/25/2024 REASON FOR EXAM: HYPOXEMIA History of hiatal hernia. TECHNIQUE: Chest CT without contrast. Coronal and Sagittal reconstruction series were provided. One or more dose reduction techniques were used (e.g., Automated exposure control, adjustment of the mA and/or kV according to patient size, use of iterative reconstruction technique RADIATION DOSE SUMMARY: CTDlvol: 12.46 mGy DLP: 482 0.77 mGycm COMPARISON: None FINDINGS: Hardware: None Lymph nodes: Small benign-appearing mediastinal lymph nodes. Heart and Vasculature: The heart is not enlarged. Atherosclerotic calcifications of the thoracic aorta. Thoracic aorta and pulmonary arteries have normal contours; noncontrast technique limits evaluation. Coronary Artery Calcifications: Present Lungs and Airways: There is elevation of the left hemidiaphragm with shift of the heart and mediastinal structures towards the right side of the midline. Mild increased linear markings at the left lung base suggestive of scarring. Pleura: No pleural effusion. Upper Abdomen: Diffuse pancreatic atrophy. Focal calcification in the head of the pancreas. This may represent a possible distal common bile duct stone versus calcification of the head of the pancreas. 1.2 cm cyst in the right lobe of the liver inferiorly and medially. Bones: Degenerative changes of the thoracic spine. CT/Chest without Contrast IMPRESSION: Coronary artery calcification (CAC) is is present Elevation of the left hemidiaphragm. Findings suggestive of mild linear scarri ng at the left lung base. Reading Location: [facility]
--- OUTSIDE RECORDS SUMMARY | 2024-09-25 21:03 | XMS RPT_ITS | CCD ---
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 Delma Glover Primary Care Provider Dr. Delma Glover Referring Provider Nurse, Surgery Attending Provider Unavailable Dr. Sebastian Mora Attending Provider Dr. Sebastian Mora Other Provider JONNA Chong Attending Provider [phone] Dr. Delma Glover Primary Care Provider [phone] Dr. Delma Glover Referring Provider Dr. Delma Glover Primary Care Provider [phone] Dr. Delma Glover Referring Provider Delma Glover Primary Care Provider [phone] Blas Oseguera Unavailable Dr. Delma Glover Primary Care Provider Dr. Delma Glover Referring Provider Dr. Cuba Mccann Attending Provider Dr. Dougie Mary Attending Provider Dr. Delma Glover Primary Care Provider Dr. Delma Glover Referring Provider Dr. Cuba Mccann Attending Provider Delma Glover MD Primary Care Provider Blas Oseguera Unavailable DALIA HOLGUIN Attending Unavailable BALDO, DELMA E Primary Care Unavailable SCHCAMELIA, DELMA E Primary Care Unavailable DALIA HOLGUIN Attending Unavailable TRICE MONTES Referring Unavailable SCHINJHON, DELMA E Primary Care Unavailable EZIODALIA CERDA Referring Unavailable DALIA HOLGUIN Referring Unavailable SCHDELMA DENISE Primary Care Unavailable DALIA HOLGUIN Referring Unavailable TRICE MONTES Attending Unavailable BALDO, DELMA Juares Primary Care Unavailable RITA CHAIDEZ JR Attending Unavaila DELMA Wong Primary Care Unavailable Dr. Delma Glover MD Primary Care Provider Dr. Delma Glover MD Attending Provider Dr. Delma Glover MD Referring Provider Dr. Amadeo Longo DO Attending Provider Dr. Amadeo Longo DO Referring Provider Delma Glover Primary Care Unavailable Sibilia Sebastian V Referring Unavailable Sibilia, Sebastian V Attending Unavailable Delma Glover Primary Care Unavailable Amadeo Longo Referring Unavailable Amadeo Longo Attending Unavailable Amadeo Longo Attending Unavailable Amadeo Longo Referring Unavailable Delma Glover Primary Care Unavailable Delma Glover Referring Unavailable Delma Glover Attending Unavailable Delma Glover Primary Care Unavailable Amadeo Longo Consulting Unavailable Ana Haney Attending Unavailable Delma Glover Primary Care Unavailable Amadeo Longo Referring Unavailable Delma Glover Referring Unavailable Delma Glover Attending Unavailable Delma Glover E Primary Care Unavailable Delma Glover Attending Unavailable Delma Glover E Primary Care Unavailable Allergies Allergy Classification Reported Allergen(s) Allergy Type Date of Onset Reaction(s) Facility (2 sources) naproxen Drug Allergy 12-25-19 [facility] Work Phone: (20 sources) Naproxen; Translations: [NAPROXEN] Drug Allergy 09-02-19 19 Mental Status Change [facility] (6 sources) decongest Propensity to adverse reactions 09-02-19 unknown [facility] (6 sources) Chlorpheniramine Drug Allergy 06-09-19 PT UNSURE OF REACTION [facility] (6 sources) Pseudoephedrine Drug Allergy 06-09-19 PT UNSURE OF REACTION [facility] (12 sources) Decongestants, Nasal; Translations: [DECONGESTANT TABLET] Propensity to adverse reactions to drug 09-20-19 Other: See Comments [facility] (12 sources) Ragweed pollen; Translations: [RAGWEED POLLEN] Drug Allergy 09-20-19 Other: See Comments [facility] (1 source) Chlorpheniramine Drug Allergy 10-10-19 [facility] Repository (1 source) Naproxen Drug Allergy 10-10-19 [facility] Repository (1 source) Pseudoephedrine Drug Allergy 10-10-19 [facility] Repository Medications Current Medications Medication Drug Class(es) Dates Sig (Normalized) Sig (Original) acetaminophen 500 mg oral tablet (15 sources) Start: 09-25-2022 take 2 tablets by mouth every six hours as needed Acetaminophen (Tylenol Extra Strength) 500 mg tablet Active 1000 mg PO EVERY 6 HOURS as needed September 25, 2022 12:00am take 1 tablet by konrad th every eight hours as needed acetaminophen (TYLENOL EXTRA STRENGTH) 5 00 mg tablet Take 500 mg by mouth every 8 hours as needed for pain. Active aspirin 325 mg oral tablet (7 sources) Nonsteroidal Anti-inflammatory Drug Start: 09-25-2022 take 2 tablets by mouth once daily as needed Aspirin 325 mg tablet Active 650 mg PO DAILY as needed September 25, 2022 12:00am Start: 09-25-2022 take 650 mg by mouth once asif y Aspirin Active 650 MG PO DAILY September 24, 2022 11:00pm Start: 12-24-2016 ASPIRIN 81 MG TABS as directed ASPIRIN [id number] Perez COYLE cyclobenzaprine hydrochloride 5 mg oral tablet (20 sources) Muscle Relaxant Start: 08-18-2017 take 1 tablet by mouth three times daily as needed for muscle spasms Cyclobenzaprine 5 mg tablet Active 5 mg PO THREE TIMES A DAY as needed for MUSCLE SPASMS August 18, 2017 12:00am take 1 tablet by konrad th every twelve hours as needed cyclobenzaprine (FLEXERIL) 10 mg tablet Take 10 mg by mouth two times a day as needed for muscle spasm. Active enteric contrast (will be provided with radiology test) (1 source) Start: 09-21-2023 End: 09-22-2023 enteric contrast (will be provided with radiology test) For CT ABD/PEL W IVCON Routine order Administer, As Directed One Time Only, via Oral, Rectal, both Oral and Rectal, Enteric Tube, Stoma or Indwelling Catheter, Enteric Contrast as designated per enteric contrast guidelines 1 Each 0 09/21/2023 09/22/2023 Active esomeprazole 20 mg delayed release oral capsule (6 sources) Proton Pump Inhibitor Start: 10-06-2023 End: 01-25-2024 take 1 capsule by mouth once daily esomeprazole (NEXIUM) 20 mg capsule Take 1 capsule by mouth once daily 30 capsule 2 01/25/2024 Active fluticasone propionate 0.05 mg/actuat metered dose nasal spray (6 sources) Corticosteroid Start: 09-25-2022 Fluticasone Propionate 50 mcg/actuation spray,suspension Active INTRANASAL September 25, 2022 12:00am End: 09-21-2023 take 1 spray(s) nasal route once daily fluticasone (FLONASE) 50 mcg/actuation nasal spray Use 1 Atkinson in each nostril once daily. 0 09/21/2023 Discontinued (Discontinued by Patient) Ipratropium (10 sources) Anticholinergic IPRATROPIUM BROM MICHELE NASAL Use in the nose. Active IPRATROPIUM BROM MICHELE NASAL Use in the nose. 0 Active iv contrast (will be provided with radiology test) (1 source) Start: 09-21-2023 End: 09-22-2023 iv contrast (will be provided with radiology test) CT ABD/PEL -Inject, intravenously, once for 1 dose.No IV access, insert saline lock prior to the beginning of sedation, infusion, injection of imaging exam. Discontinue saline lock post exam. If Pt. has a central line or IVAD, may access for administration according to line specific nursing protocol. Once exam is complete flush line and de-access according to line specific nursing protocol in the CT contrast administration guidelines link. 1 Each 0 09/21/2023 09/22/2023 Active levothyroxine sodium 0.1 mg oral tablet (20 sources) l-Thyroxine Start: 09-25-2022 Levothyroxine 100 mcg tablet Active ug PO September 25, 2022 12:00am Start: 09-25-2022 Levothyroxine Active MCG PO September 24, 2022 11:00pm Start: 09-01-2018 End: 09-25-2022 Levothyroxine 88 mcg capsule Discontinued 100 ug PO DAILY September 01, 2018 12:00am September 25, 2022 1:16pm Start: 09-08-2017 End: 09-01-2018 Levothyroxine 75 MCG tablet Discontinued 88 ug PO DAILY September 08, 2017 12:00am September 01, 2018 2:17pm Start: 09-08-2017 End: 09-01-2018 take 88 ug by mouth once daily Levothyroxine Discontin ued 88 MCG PO DAILY September 07, 2017 11:00pm September 01, 2018 1:17pm take 1 tablet by konrad th once daily SYNTHROID 100 mcg tablet Take 100 mcg by mouth once daily. Active loratadine 10 mg oral tablet (7 sources) Start: 09-25-2022 take 1 tablet by mouth once daily Loratadine (Allergy Relief (Loratadine)) 10 mg tablet Active 10 mg PO DAILY September 25, 2022 12:00am Start: 12-24-2016 ALLERGY 10 MG TBDP as directed LORATADINE [id number] Perez COYLE rosuvastatin calcium 10 mg oral tablet (20 sources) HMG-CoA Reductase Inhibitor Start: 05-07-2021 take 1 tablet by mouth once daily Rosuvastatin (Crestor) 10 mg Tablet Active 10 mg PO DAILY May 07, 2021 12:00am triamcinolone acetonide 1 mg/ml topical cream (15 sources) Corticosteroid Start: 09-25-2022 Triamcinolone Acetonide Active APPLIC TOPICAL September 24, 2022 11:00pm Start: 09-25-2022 Triamcinolone Acetonide 0.1 % cream Active NMA TOPICAL September 25, 2022 12:00am Completed/Discontinued Medications Medication Drug Class(es) Dates Sig (Normalized) Sig (Original) albuterol 0.83 mg/ml inhalant solution (2 sources) beta2-Adrenergic Agonist Start: 12-24-2016 ALBUTEROL SULFATE (2.5 MG/3ML) 0.083% NEBU 1-2 puffs every 4-6 hours as needed ALBUTEROL SULFATE [id number] Perez COYLE amoxicillin 875 mg / clavulanate 125 mg oral tablet (2 sources) Penicillin-class Antibacterial Start: 12-24-2016 AUGMENTIN 875-125 MG TABS 1 tablet twice a day AMOXICILLIN-POT CLAVULANATE [id number] Perez COYLE Benzocaine (1 source) Standardized Chemical Allergen Start: 09-24-2023 End: 09-24-2023 benzocaine 20% 1 Atkinson (TOPEX) calcium chloride 0.0014 meq/ml / potassium chloride 0.004 meq/ml / sodium chloride 0.103 meq/ml / sodium lactate 0.028 meq/ml injectable solution (1 source) Start: 09-24-2023 End: 09-24-2023 lactated ringers iv infusion 1 ml fentaNYL 0.05 mg/ml injection (1 source) Opioid Agonist Start: 09-24-2023 End: 09-24-2023 fentaNYL 50 mcg/mL 25-100 mcg injection (SUBLIMAZE) 5 ml midazolam 1 mg/ml injection (1 source) Benzodiazepine Start: 09-24-2023 End: 09-24-2023 midazolam 1-5 mg injection (VERSED) omeprazole 40 mg delayed release oral capsule (6 sources) Proton Pump Inhibitor End: 10-06-2023 take 1 capsule by mouth once daily omeprazole (PRILOSEC) 40 mg capsule Take 40 mg by mouth once daily. 0 10/06/2023 Discontinued (Course of therapy completed) Problems Active Problems Problem Classification Problem Date Documented Da te Episodic/Chronic Abdominal pain (3 sources) Upper abdominal pain; Translations: [Upper abdominal pain, unspecified] Onset: 4 09-21-2023 Episodic Disorders of lipid metabolism (1 source) Hyperlipidemia, unspecified; Translations: [Hyperlipidemia, unspecified] Onset: 5 Chronic Esophageal disorders (13 sources) Gastroesophageal reflux disease without esophagitis; Translations: [Gastro-esophageal reflux disease without esophagitis] Onset: 4 09-21-2023 Chronic Esophageal disorders (1 source) Esophageal disorders; Translations: [Gastroesophageal reflux disease with esophagitis without hemorrhage] Onset: 4 Immunizations and screening for infectious disease (14 sources) Contact with and (suspected) exposure to other viral communicable diseases; Translations: [Contact with or suspected exposure to other viral communicable disease] Episodic Nonspecific chest pain (12 sources) Chest pain on exertion; Translations: [Chest pain, unspecified] 08-31-2018 Episodic Other and unspecified benign neoplasm (12 sources) History of polyp of colon; Translations: [Personal history of colonic polyps] 05-13-2021 Episodic Other and unspecified benign neoplasm (3 sources) Personal history of colonic polyps; Translations: [Personal history of colonic polyps] Episodic Other circulatory disease (1 source) Clearing throat - hawking; Translations: [Other specified symptoms and signs involving the circulatory and respiratory systems] 09-21-2023 Episodic Other connective tissue disease (5 sources) History of operative procedure on lumbosacral spinal structure; Translations: [Arthrodesis status] 09-25-2022 Episodic Other connective tissue disease (2 sources) Arthrodesis status; Translations: [Arthrodesis status] 09-25-2022 Episodic Other connective tissue disease (4 sources) Trochanteric bursitis; Translations: [Trochanteric bursitis, left hip] 10-09-2022 Episodic Other connective tissue disease (1 source) Trochanteric bursitis, left hip; Translations: [Enthesopathy of hip region] 10-09-2022 Episodic Other diseases of kidney and ureters (2 sources) Cyst of kidney; Translations: [Cyst of kidney, acquired] 10-06-2023 Episodic Other diseases of kidney and ureters (1 source) Cyst of kidney, acquired; Translations: [Renal cyst] Onset: Episodic Other gastrointestinal disorders (1 source) Heartburn; Translations: [Heartburn] 09-24-2023 Episodic Other gastrointestinal disorders (1 source) Heartburn; Translations: [Heartburn] Onset: 4 Episodic Other lower respiratory disease (12 sources) Dyspnea; Translations: [Dyspnea, unspecified] 08-31-2018 Episodic Other lower respiratory disease (1 source) Hypoxemia; Translations: [Hypoxemia] Onset: 5 Episodic Other nervous system disorders (2 sources) Paresthesia of skin; Translations: [Paresthesia of skin] Onset: 5 Episodic Other screening for suspected conditions (not mental disorders or infectious disease) (20 sources) Raised TSH level; Translations: [Other specified abnormal findings of blood chemistry] 08-31-2018 Episodic Residual codes; unclassified (12 sources) Family history of cancer of colon; Translations: [Family history of malignant neoplasm of digestive organs] 05-13-2021 Episodic Residual codes; unclassified (3 sources) Family history of malignant neoplasm of digestive organs; Translations: [Family history of malignant neoplasm of gastrointestinal tract] Episodic Residual codes; unclassified (5 sources) Pain; Translations: [Pain, unspecified] 09-25-2022 Episodic Spondylosis; intervertebral disc disorders; other back problems (2 sources) Spondylosis without myelopathy or radiculopathy, thoracic region; Translations: [Other intervertebral disc displacement, thoracic region] Onset: 7 Chronic Unclassified (1 source) 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; Translations: [OTH CERVICAL DISC DISPL] Onset: 7 Past or Other Problems Problem Classification Problem Date Documented Date Episodic/Chronic Chronic obstructive pulmonary disease and bronchiectasis (2 sources) Bronchitis; Translations: [Bronchitis, not specified as acute or chronic] Onset: 12-24-2016 12-24-2016 Episodic Deficiency and other anemia (1 source) Anemia, unspecified; Translations: [Anemia, unspecified] Onset: 05-14-2024 Episodic Diabetes mellitus without complication (1 source) Impaired glucose tolerance (oral); Translations: [Impaired glucose tolerance (oral)] Onset: 02-08-2024 Episodic Other lower respiratory disease (2 sources) [...] Results Test Name Value Interpretation Reference Range Facility NCS and/or EMG Patienton NCS and/or EMG Patient [facility] Pulmonary Services/Neurology [address] [place] [address] MR#: [id number] Acct: [id number] Name: SILVIA NICOLE II Rep #: [id number] : 1945 78 From: Ana Haney MD Referring Dr: Amadeo Longo DO Status: REG C LI Location: [facility] Date: 07/05/24 Sex: M C NCS and/or EMG Patient Report Ordering Doctor: Amadeo Longo DATE OF SERVICE: 07/05/24 Silvia presents for electrodiagnostic testing of the right upper limb. 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 He denies numbness. He reports intermittent wrist pain. Electrodiagnostic findings: Right median motor nerve demonstrates normal distal latency, amplitude and conduction velocity. Right ulnar motor nerve demonstrates normal distal latency amplitude and conduction velocity. Normal right median and ulnar F???waves. Sensory responses are within normal limits. Needle EMG testing was performed in the right upper limb. All muscles tested showed no evidence of denervation with normal motor unit action potentials. Electrodiagnostic impression: This is a normal electrodiagnostic study of the right upper limb. There is no electrodiagnostic evidence for peripheral neuropathy, including carpal tunnel or cubital tunnel syndrome. There is no electrodiagnostic evidence for cervical radiculopathy. Multi Select Codes Neurology Neurology Interp Codes: 30906-49 Musc test done w/n test comp (interp) and 89312-44 Nrv cndj test 7- 8 studies (interp) 07/05/24 1242 Date Ana Haney MD CC: Dr. Ana Haney MD; Dr. Delma Glover MD; Dr. Amadeo Longo DO Date Dictated: 07/05/24 1238 Date Transcribed: 07/05/24 1238 Cardiopulmonary Specialist: AA Signed Normal [facility] Re-Evalution OTon 06-20-2024 Re-Evalution OT [facility] Occupational Therapy [facility] [address] [place] [address] / REEVALUATION / MEDICARE RECERTIFICATION OCCUPATIONAL THERAPY MR#: [id number] Acct: [id number] Name: SILVIA INCOLE II Rep #: [id number] : 1945 78 From: Maeve aHmmond OTR/L, CHT Referring Dr.: Dr. Amadeo Longo DO Status: REG RCR Insurance: MEDICARE PART A B Eval Date: [employer] Re-Evaluation Intro: Dr. Amadeo Longo DO, It has been my pleasure to treat SILVIA NICOLE II over the last 18 visits for unilateral primary osteo of cmc R, osteo of R wrist. Please see the progress note below for an update on the occupational therapy plan of care! Subjective Subjective: pt arrives to session: states he feels he had set back. with driving in [place] weather for 8 hrs and initiating mowing the grass wrist pain has returned. 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 strength 85# a reduction from 90# lateral R 12# now 20# L 11# now 20# tripod R 12# now 18# L 8# now 14# R wrist RD 25 degrees UD 45 degrees (May 18, 2024) R wrist RD 15* UD 30* current right wrist pain will increase 6/10 with use at times Plan Plan Frequency: 1-2x /Week Duration: 4 Weeks Plan: wrist stabilization bracing pain management POC now 1-2 x a week for 4 weeks focus on HEP as well as PRE to tolerance wrist in neutral position Goals Goals Patient Goals: Regain Mobility, Regain Strength, Decrease Pain, Decrease Swelling/Stiffness, Use Hand/Wrist/Arm Normally Again, Increase ROM, Resume Former Household Responsibilities (Cooking,Cl eaning,Yard, etc.) and Resume Hobbies Goal:ROM equal to unaffected hand: Yes Goal Progress: Progressing Goal:Supervisor Throwing Department/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 at least 75% of unaffected hand: Yes Goal Progress: Progressing Goal:No pain with affected hand use: Yes Goal Progress: Progressing Goal:Full use of affected hand in daily activities including work: Yes Goal Progress: Progressing Other Goal: pt will improve quick dash score by 10 points or more for increased functional use of RUE Pt will verbalize/ demonstrate 100% accuracy in proper R wrist bracing for joint protection by third session Pt will verbalize/ demonstrate 100% accuracy in proper joint positioning and protection techniques by discharge progressing Anticipated Interventions Anticipated Interventions Anticipated Interventions: A/AAROM/PROM, Strengthening, Triggerpoint Release, Modalities, Orthoses, Joint Protection/Energy Conservation, Education re Diagnosis and Home Program Re-Evaluation Ending Re-evaluation ending: Please do not hesitate to contact me at [phone] by phone or if you have questions or concerns regarding this new plan of care! Sincerely, Maeve Hammond, JUAN ANTONIOR/L, CHT 06/20/24 1021 CC: Dr. Delma Glover MD; Dr. Amadeo Longo DO MK Signed For Medicare only, by signing this I certify the plan of care. Physicians Signature Date Normal [facility] CBC W/Diff, Automatedon 05-23 Absolute Lymph 3.38 X10 3/uL Normal 0.83-4.51 [facility] Comment on above: Order Comment: Order Date: 05/09/24 Order Info: 0184-1 - CBCD Performed By: #### L 100.0100, L506.0400 #### [facility] [address] [place], [address] Absolute Neut 3.2 X10 3/uL Normal 2.0-7.7 [facility] Comment on above: Order Comment: Order Date: 05/09/24 Order Info: 0184-1 - CBCD Performed By: #### L 100.0100, L506.0400 #### [facility] [address] [place], [address] Basophils/100 WBC (Bld) 0.7 % Normal 0-1 [facility] Comment on above: Order Comment: Order Date: 05/09/24 Order Info: 0184-1 - CBCD Performed By: #### L 100.0100, L506.0400 #### [facility] [address] [place], [address] Eosinophils/100 WBC (Bld) 1.8 % Normal 0-5 [facility] Comment on above: Order Comment: Order Date: 05/09/24 Order Info: 0184-1 - CBCD Performed By: #### L 100.0100, L506.0400 #### [facility] [address] [place], [address] Erythrocyte distribution width (RBC) [Ratio] 12.2 % Normal 11.6-14.6 [facility] Comment on above: Order Comment: Order Date: 05/09/24 Order Info: 0184-1 - CBCD Performed By: #### L 100.0100, L506.0400 #### [facility] [address] [place], [address] Hematocrit (Bld) [Volume fraction] 41.5 % Normal 40-54 [facility] Comment on above: Order Comment: Order Date: 05/09/24 Order Info: 0184-1 - CBCD Performed By: #### L 100.0100, L506.0400 #### [facility] [address] [place], [address] Hemoglobin (Bld) [Mass/Vol] 13.6 g/dL Normal 13.0-16.5 [facility] Comment on above: Order Comment: Order Date: 05/09/24 Order Info: 0184-1 - CBCD Performed By: #### L 100.0100, L506.0400 #### [facility] [address] [place], [address] IG% 0.300 Normal 0.0-0.9 [facility] Comment on above: Order Comment: Order Date: 05/09/24 Order Info: 0184- - CBCD Result Comment: IG% - Immature Granulocytes (promyelocytes, myelocytes and metamyelocytes) > 1% indicates that a LEFT SHIFT is Present. Performed By: #### L 100.0100, L506.0400 #### [facility] [address] [place], [address] Lymphocytes/100 WBC (Bld) 46.1 % High 19-41 [facility] Comment on above: Order Comment: Order Date: 05/09/24 Order Info: 0184- - CBCD Performed By: #### L 100.0100, L506.0400 #### [facility] [address] [place], [address] MCH (RBC) [Entitic mass] 32.5 pg High 27.0-32.0 [facility] Comment on above: Order Comment: Order Date: 05/09/24 Order Info: 0184- - CBCD Performed By: #### L 100.0100, L506.0400 #### [facility] [address] [place], [address] MCHC (RBC) [Mass/Vol] 32.8 g/dL Normal 32-36 [facility] Comment on above: Order Comment: Order Date: 05/09/24 Order Info: 0184- - CBCD Performed By: #### L 100.0100, L506.0400 #### [facility] [address] [place], [address] MCV (RBC) [Entitic vol] 99.3 fL High 80-94 [facility] Comment on above: Order Comment: Order Date: 05/09/24 Order Info: 0184- - CBCD Performed By: #### L 100.0100, L506.0400 #### [facility] [address] [place], [address] Monocytes/100 WBC (Bld) 7.6 % Normal 0-10 [facility] Comment on above: Order Comment: Order Date: 05/09/24 Order Info: 0184-1 - CBCD Performed By: #### L 100.0100, L506.0400 #### [facility] [address] [place], [address] Neutrophils/100 WBC (Bld) 43.5 % Low 47-70 [facility] Comment on above: Order Comment: Order Date: 05/09/24 Order Info: 0184-1 - CBCD Performed By: #### L 100.0100, L506.0400 #### [facility] [address] [place], [address] Nucleated RBC (Bld) [#/Vol] 0 10*3/uL Normal 0-5 [facility] Comment on above: Order Comment: Order Date: 05/09/24 Order Info: 0184-1 - CBCD Performed By: #### L 100.0100, L506.0400 #### [facility] [address] [place], [address] Platelet mean volume (Bld) [Entitic vol] 11.2 fL Normal 6.2-12.0 [facility] Comment on above: Order Comment: Order Date: 05/09/24 Order Info: [id number] - CBCD Performed By: #### L 100.0100, L506.0400 #### [facility] [address] [place], [address] Platelets (Bld) [#/Vol] 171 10*3/uL Normal 150-450 [facility] Comment on above: Order Comment: Order Date: 05/09/24 Order Info: [id number] - CBCD Performed By: #### L 100.0100, L506.0400 #### [facility] [address] [place], [address] RBC (Bld) [#/Vol] 4.18 10*6/uL Low 4.6-6.2 [facility] Comment on above: Order Comment: Order Date: 05/09/24 Order Info: [id number] - CBCD Performed By: #### L 100.0100, L506.0400 #### [facility] [address] [place], [address] RDW SD 44.3 fl High 35.1-43.9 [facility] Comment on above: Order Comment: Order Date: 05/09/24 Order Info: [id number] - CBCD Performed By: #### L 100.0100, L506.0400 #### [facility] [address] [place], [address] WBC (Bld) [#/Vol] 7.3 10*3/uL Normal 4.4-11.0 [facility] Comment on above: Order Comment: Order Date: 05/09/24 Order Info: [id number] - CBCD Performed By: #### L 100.0100, L506.0400 #### [facility] [address] [place], [address] Comprehensive Metabolic Prof [facility] 06-08-2024 Albumin [Mass/Vol] 4.2 g/dL Normal 3.4-4.8 [facility] Comment on above: Order Comment: Order Date: 05/09/24Order Info: [id number] - CMPOrder Info: [id number] - LIPIDOrder Info: [id number] - TSHOrder Info: [id number] - PSAOrder Info: 3024-7 - T4F Performed By: #### L 501.9910, L501.9520, L500.4100, L501.9985, L500.4050 ####[facility] [address] [place], [address] Albumin/Globulin [Mass ratio] 1.5 {ratio} Normal 0.9-2.4 [facility] Comment on above: Order Comment: Order Date: 05/09/24Order Info: [id number] - CMPOrder Info: [id number] - LIPIDOrder Info: 3 - TSHOrder Info: [id number] - PSAOrder Info: 3024-7 - T4F Performed By: #### L 501.9910, L501.9520, L500.4100, L501.9985, L500.4050 ####[facility] [address] [place], [place], [address] ALK PHOS 64 U/L Normal 40-129 [facility] Comment on above: Order Comment: Order Date: 05/09/24Order Info: 86-1 - CMPOrder Info: [id number] - LIPIDOrder Info: [id number] - TSHOrder Info: [id number] - PSAOrder Info: 3024-7 - T4F Performed By: #### L 501.9910, L501.9520, L500.4100, L501.9985, L500.4050 ####[facility] [address] [place], [place], [address] ALT [Catalytic activity/Vol] 14 U/L Normal <=46 [facility] Comment on above: Order Comment: Order Date: 05/09/24Order Info: 86-1 - CMPOrder Info: [id number] - LIPIDOrder Info: [id number] - TSHOrder Info: [id number] - PSAOrder Info: 3024-7 - T4F Performed By: #### L 501.9910, L501.9520, L500.4100, L501.9985, L500.4050 ####[facility] [address] [place], [address] AST [Catalytic activity/Vol] 24 U/L Normal <=37 [facility] Comment on above: Order Comment: Order Date: 05/09/24Order Info: [id number] - CMPOrder Info: [id number] - LIPIDOrder Info: 3 - TSHOrder Info: [id number] - PSAOrder Info: 3024-7 - T4F Performed By: #### L 501.9910, L501.9520, L500.4100, L501.9985, L500.4050 ####[facility] [address] [place], [address] Bilirubin [Mass/Vol] 0.55 mg/dL Normal 0.00-1.30 [facility] Comment on above: Order Comment: Order Date: 05/09/24Order Info: [id number] - CMPOrder Info: [id number] - LIPIDOrder Info: [id number] - TSHOrder Info: [id number] - PSAOrder Info: 3024-7 - T4F Performed By: #### L 501.9910, L501.9520, L500.4100, L501.9985, L500.4050 ####[facility] [address] [place], [address] BUN/CRE 12.6 RATIO Normal 10-20 [facility] Comment on above: Order Comment: Order Date: 05/09/24Order Info: 86-1 - CMPOrder Info: [id number] - LIPIDOrder Info: 3 - TSHOrder Info: [id number] - PSAOrder Info: 3024-7 - T4F Performed By: #### L 501.9910, L501.9520, L500.4100, L501.9985, L500.4050 ####[facility] [address] [place], [address] Calcium [Mass/Vol] 9.2 mg/dL Normal 7.6-11.0 [facility] Comment on above: Order Comment: Order Date: 05/09/24Order Info: 86-1 - CMPOrder Info: [id number] - LIPIDOrder Info: [id number] - TSHOrder Info: [id number] - PSAOrder Info: 3024-7 - T4F Performed By: #### L 501.9910, L501.9520, L500.4100, L501.9985, L500.4050 ####[facility] [address] [place], [address] Chloride [Moles/Vol] 103 mmol/L Normal 98-108 [facility] Comment on above: Order Comment: Order Date: 05/09/24Order Info: [id number] - CMPOrder Info: [id number] - LIPIDOrder Info: [id number] - TSHOrder Info: [id number] - PSAOrder Info: 3024-7 - T4F Performed By: #### L 501.9910, L501.9520, L500.4100, L501.9985, L500.4050 ####[facility] [address] [place], [address] CO2 [Moles/Vol] 24.0 mmol/L Normal 21.0-32.0 [facility] Comment on above: Order Comment: Order Date: 05/09/24Order Info: [id number] - CMPOrder Info: [id number] - LIPIDOrder Info: 6-3 - TSHOrder Info: [id number] - PSAOrder Info: 3024-7 - T4F Performed By: #### L 501.9910, L501.9520, L500.4100, L501.9985, L500.4050 ####[facility] [address] [place], [address] Creatinine [Mass/Vol] 1.11 mg/dL Normal 0.70-1.20 [facility] Comment on above: Order Comment: Order Date: 05/09/24Order Info: 86-1 - CMPOrder Info: [id number] - LIPIDOrder Info: 6-3 - TSHOrder Info: [id number] - PSAOrder Info: 3024-7 - T4F Performed By: #### L 501.9910, L501.9520, L500.4100, L501.9985, L500.4050 ####[facility] [address] [place], [address] GAP 11 Normal 5-15 [facility] Comment on above: Order Comment: Order Date: 05/09/24Order Info: 86-1 - CMPOrder Info: [id number] - LIPIDOrder Info: 6-3 - TSHOrder Info: [id number] - PSAOrder Info: 7 - T4F Performed By: #### L 501.9910, L501.9520, L500.4100, L501.9985, L500.4050 ####[facility] [address] [place], [address] GFR/1.73 sq M.predicted among non-blacks MDRD (S/P/Bld) [Vol rate/Area] 69 mL/min/{1.73_m2} Normal >60 [facility] Comment on above: Order Comment: Order Date: 05/09/24Order Info: 785- - CMPOrder Info: - LIPIDOrder Info: [id number] - TSHOrder Info: [id number] - PSAOrder Info: 7 - T4F Result Comment: mL/m in/1.73m2 CKD-EPI Creatinine Equation (2020) Performed By: #### L 501.9910, L501.9520, L500.4100, L501.9985, L500.4050 ####[facility] [address] [place], [address] Globulin (S) [Mass/Vol] 2.9 g/dL Normal 2.2-4.2 [facility] Comment on above: Order Comment: Order Date: 05/09/24Order Info: [id number] - CMPOrder Info: - LIPIDOrder Info: [id number] - TSHOrder Info: [id number] - PSAOrder Info: 7 - T4F Performed By: #### L 501.9910, L501.9520, L500.4100, L501.9985, L500.4050 ####[facility] [address] [place], [address] Glucose [Mass/Vol] 88 mg/dL Normal 70-99 [facility] Comment on above: Order Comment: Order Date: 05/09/24Order Info: 785- - CMPOrder Info: [id number] - LIPIDOrder Info: [id number] - TSHOrder Info: [id number] - PSAOrder Info: 3024-7 - T4F Performed By: #### L 501.9910, L501.9520, L500.4100, L501.9985, L500.4050 ####[facility] [address] [place], [address] Potassium [Moles/Vol] 4.4 mmol/L Normal 3.3-5.1 [facility] Comment on above: Order Comment: Order Date: 05/09/24Order Info: [id number] - CMPOrder Info: [id number] - LIPIDOrder Info: 6-3 - TSHOrder Info: [id number] - PSAOrder Info: 3024-7 - T4F Performed By: #### L 501.9910, L501.9520, L500.4100, L501.9985, L500.4050 ####[facility] [address] [place], [address] Sodium [Moles/Vol] 138 mmol/L Normal 133-145 [facility] Comment on above: Order Comment: Order Date: 05/09/24Order Info: 86-1 - CMPOrder Info: [id number] - LIPIDOrder Info: 3 - TSHOrder Info: [id number] - PSAOrder Info: 3024-7 - T4F Performed By: #### L 501.9910, L501.9520, L500.4100, L501.9985, L500.4050 ####[facility] [address] [place], [address] T PROT 7.1 g/dL Normal 5.9-8.4 [facility] Comment on above: Order Comment: Order Date: 05/09/24Order Info: [id number] - CMPOrder Info: [id number] - LIPIDOrder Info: [id number] - TSHOrder Info: [id number] - PSAOrder Info: 3024-7 - T4F Performed By: #### L 501.9910, L501.9520, L500.4100, L501.9985, L500.4050 ####[facility] [address] [place], [address] Urea nitrogen [Mass/Vol] 14 mg/dL Normal 4-19 [facility] Comment on above: Order Comment: Order Date: 05/09/24Order Info: [id number] - CMPOrder Info: [id number] - LIPIDOrder Info: 6-3 - TSHOrder Info: [id number] - PSAOrder Info: 3024-7 - T4F Performed By: #### L 501.9910, L501.9520, L500.4100, L501.9985, L500.4050 ####[facility] [address] [place], [address] Hemoglobin A1con 06-08-2024 HbA1c (Bld) [Mass fraction] 5.7 % Normal <=5.6 [facility] Comment on above: Order Comment: Order Date: 05/09/24Order Info: [id number] - A1C Result Comment: Norm al < 5.7 % Prediabetic 5.7 - 6.4 % Diabetic >or= 6.5 % Please note range changes. Performed By: #### L 501.9910, L501.9520, L500.4100, L501.9985, L500.4050 ####[facility] [address] [place], [address] Lipid Profileon 06-08-2024 CHOL:HDL 2.39 Normal [facility] Comment on above: Order Comment: Order Date: 05/09/24Order Info: [id number] - CMPOrder Info: [id number] - LIPIDOrder Info: 6-3 - TSHOrder Info: [id number] - PSAOrder Info: 3024-7 - T4F Performed By: #### L 501.9910, L501.9520, L500.4100, L501.9985, L500.4050 ####[facility] [address] [place], [address] Cholesterol [Mass/Vol] 115 mg/dL Normal <=200 [facility] Comment on above: Order Comment: Order Date: 05/09/24Order Info: [id number] - CMPOrder Info: [id number] - LIPIDOrder Info: [id number] - TSHOrder Info: 2851 - PSAOrder Info: 7 - T4F Result Comment: Chol esterol level, Desirable <200 mg/dL Borderline high cholesterol 200-239 mg/dL High cholesterol >=240 mg/dL Recommendations of the NCEP Adult Treatment Panel for the following risk-cutoff thresholds for the [place] population. Performed By: #### L 501.9910, L501.9520, L500.4100, L501.9985, L500.4050 ####[facility] [address] [place], [address] Cholesterol in HDL [Mass/Vol] 48 mg/dL Normal [facility] Comment on above: Order Comment: Order Date: 05/09/24Order Info: 785-1 - CMPOrder Info: [id number] - LIPIDOrder Info: 3 - TSHOrder Info: 1 - PSAOrder Info: [id number] - T4F Result Comment: [place] onal Cholesterol Education Program (NCEP) guidelines: <40 mg/dL: Low HDL-cholesterol (major risk factor for CHD) >= 60 mg/dL: High HDL-cholesterol (negative risk factor for CHD) HDL-cholesterol is affected by a number of factors, e.g. smoking, exercise, hormones, sex and age. Performed By: #### L 501.9910, L501.9520, L500.4100, L501.9985, L500.4050 ####[facility] [address] [place], [address] Cholesterol in LDL [Mass/Vol] 52 mg/dL Normal [facility] Comment on above: Order Comment: Order Date: 05/09/24Order Info: 07-1 - CMPOrder Info: [id number] - LIPIDOrder Info: [id number] - TSHOrder Info: 2857-1 - PSAOrder Info: 7 - T4F Result Comment: Bord xvrrjm=673-266 mg/dL Higher Tyxz=960 mg/dL or greater Performed By: #### L 501.9910, L501.9520, L500.4100, L501.9985, L500.4050 ####[facility] [address], [address] Cholesterol in VLDL [Mass/Vol] 15 mg/dL Normal 5-40 [facility] Comment on above: Order Comment: Order Date: 05/09/24Order Info: [id number] - CMPOrder Info: [id number] - LIPIDOrder Info: 6-3 - TSHOrder Info: 285-1 - PSAOrder Info: 7 - T4F Performed By: #### L 501.9910, L501.9520, L500.4100, L501.9985, L500.4050 ####[facility] [address] [place], [place], [address] Triglyceride [Mass/Vol] 73 mg/dL Normal [facility] Comment on above: Order Comment: Order Date: 05/09/24Order Info: 785-1 - CMPOrder Info: [id number] - LIPIDOrder Info: [id number] - TSHOrder Info: [id number] - PSAOrder Info: 7 - T4F Result Comment: The drugs N-Acetylcysteine and Metamizole may falsely depress this assay. Normal range: <150 mg/dL Borderline High: 150-199 mg/dL High: 200-499 mg/dL Very High: >500 mg/dL Performed By: #### L 501.9910, L501.9520, L500.4100, L501.9985, L500.4050 ####[facility] [address] [place], [place], [address] PSA,Total - Annual Screenon 06-08-2024 PSA,TOT SCREEN 1.17 ng/mL Normal 0.02-4.00 [facility] Comment on above: Order Comment: Order Date: 05/09/24Order Info: 86-1 - CMPOrder Info: [id number] - LIPIDOrder Info: 3 - TSHOrder Info: [id number] - PSAOrder Info: 3024-7 - T4F Result Comment: This test was performed using the [employer] tPSA method. Measured values of a patient??sample can vary depending on the testing procedure used. PSA values determined on patient samples by different testing procedures cannot be used interchangeably. If there is a change in PSA assays while monitoring therapy, sequential testing should be performed to confirm baseline values. Performed By: #### L 501.9910, L501.9520, L500.4100, L501.9985, L500.4050 ####[facility] [address] [place], [place], [address] T4 Free Directon 06-08-2024 T4 FREE DIRECT 1.60 ng/dL High 0.76-1.46 [facility] Comment on above: Order Comment: Order Date: 05/09/24 Order Info: [id number] - CMP Order Info: [id number] - LIPID Order Info: [id number] - TSH Order Info: [id number] - PSA Order Info: 7 - T4F Performed By: #### L 100.0100, L506.0400 #### [facility] [address] [place], [place], [address] Thyroid Stim Hormone (TSH)on 06-08-2024 TSH 1.900 uIU/mL Normal 0.300-4.200 [facility] Comment on above: Order Comment: Order Date: 05/09/24Order Info: 0786-1 - CMPOrder Info: [id number] - LIPIDOrder Info: [id number] - TSHOrder Info: 1 - PSAOrder Info: 3024-7 - T4F Performed By: #### L 501.9910, L501.9520, L500.4100, L501.9985, L500.4050 ####[facility] [address] [place], [place], [address] Re-Evalution OTon 05-18-2024 Re-Evalution OT [facility] Occupational Therapy Health[address] [place] [address] / REEVALUATION / MEDICARE RECERTIFICATION OCCUPATIONAL THERAPY MR#: [id number] Acct: [id number] Name: SILVIA NICOLE II Rep #: [id number] : 1945 78 From: Keely Styles Referring Dr.: Dr. Amadeo Longo DO Status: REG RCR Insurance: MEDICARE PART A B Eval Date: [employer] Re-Evaluation Intro: Dr. Amadeo Longo, DO, It has been my pleasure to treat SILVIA NICOLE II over the last 14 visits for unilateral primary osteo of cmc R, osteo of R wrist. Please see the progress note below for an update on the occupational therapy plan of care! Subjective Subjective: pt arrives doing well no changes today last scheduled visit. POC extended with reduction in frequency to 1x a week for 4 weeks plan to focus on PRE as tolerated and transition to HEP. Objective Objective/Function: Supervisor Throwing Department R 85# L 90# lateral R 12# L 11# tripod R 12# L 8# R wrist RD 25 degrees UD 45 degrees Plan Plan Frequency: 1x/Week Duration: 4 Weeks Plan: wrist stabilization bracing pain management POC now 1x a week for 4 weeks focus on HEP as well as PRE to tolerance wrist in neutral position Goals Goals Patient Goals: Regain Mobility, Regain Strength, Decrease Pain, Decrease Swelling/Stiffness, Use Hand/Wrist/Arm Normally Again, Increase ROM, Resume Former Household Responsibilities (Cooking,Cleaning,[address] rd, etc.) and Resume Hobbies Goal:ROM equal to unaffected hand: Yes Goal Progress: Progressing Goal:Supervisor Throwing Department/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 at least 75% of unaffected hand: Yes Goal Progress: Progressing Goal:No pain with affected hand use: Yes Goal Progress: Progressing Goal:Full use of affected hand in daily activities including work: Yes Goal Progress: Progressing Other Goal: pt will improve quick dash score by 10 points or more for increased functional use of RUE Pt will verbalize/ demonstrate 100% accuracy in proper R wrist bracing for joint protection by third session Pt will verbalize/ demonstrate 100% accuracy in proper joint positioning and protection techniques by discharge progressing Anticipated Interventions Anticipated Interventions Anticipated Interventions: A/AAROM/PROM, Strengthening, Triggerpoint Release, Modalities, Orthoses, Joint Protection/Energy Conservation, Education re Diagnosis and Home Program Re-Evaluation Ending Re-evaluation ending: Please do not hesitate to contact me at [phone] by phone or if you have questions or concerns regarding this new plan of care! Sincerely, Keely Styles 05/18/24 1117 CC: Dr. Delma Glover MD; Dr. Amadeo Longo DO CK Signed For Medicare only, by signing this I certify the plan of care. Physicians Signature Date Normal [facility] Ferritinon 05-06-2024 Ferritin [Mass/Vol] 210 ng/mL Normal 37-417 [facility] Comment on above: Order Comment: ROBERTO Juares ADD IBC FE B12 TO BLOOD DRAWN 05/04/24 PER Order Date: 01/12/24 Order Info: [id number] - CMP Order Info: [id number] - LIPID Order Info: 3 - TSH Order Info: [id number] - T4F Performed By: #### L 503.6030, L503.0106, L503.6550 #### [facility] [address] [place], [address] Iron+Iron Binding Capacityon 05-06-2024 Iron [Mass/Vol] 105 ug/dL Normal 65-175 [facility] Comment on above: Order Comment: ROBERTO Juares ADD IBC FE B12 TO BLOOD DRAWN 05/04/24 PER Order Date: 01/12/24 Order Info: [id number] - CMP Order Info: [id number] - LIPID Order Info: [id number] - TSH Order Info: [id number] - T4F Performed By: #### L 503.6030, L503.0106, L503.6550 #### [facility] [address] [place], [address] IRON SATURATION 39.0 Normal 9-55 [facility] Comment on above: Order Comment: ROBERTO Juares ADD IBC FE B12 TO BLOOD DRAWN 05/04/24 PER Order Date: 01/12/24 Order Info: [id number] - CMP Order Info: [id number] - LIPID Order Info: 3 - TSH Order Info: 7 - T4F Performed By: #### L 503.6030, L503.0106, L503.6550 #### [facility] [address] [place], [address] TIBC 271 ug/dL Normal 250-450 [facility] Comment on above: Order Comment: ROBERTO Juares ADD IBC FE B12 TO BLOOD DRAWN 05/04/24 PER Order Date: 01/12/24 Order Info: [id number] - CMP Order Info: - LIPID Order Info: [id number] - TSH Order Info: 7 - T4F Performed By: #### L 503.6030, L503.0106, L503.6550 #### [facility] [address] [place], [address] UIBC 166 ug/dL Low 228-428 [facility] Comment on above: Order Comment: ROBERTO Juares ADD IBC FE B12 TO BLOOD DRAWN 05/04/24 PER Order Date: 01/12/24 Order Info: [id number] - CMP Order Info: - LIPID Order Info: [id number] - TSH Order Info: 7 - T4F Performed By: #### L 503.6030, L503.0106, L503.6550 #### [facility] [address] [place], [address] L503.0106on 05-06-2024 Cobalamin (Vitamin B12) [Mass/Vol] 313 pg/mL Normal 180-914 [facility] Comment on above: Order Comment: ROBERTO Juares ADD IBC FE B12 TO BLOOD DRAWN 05/04/24 PER Order Date: 01/12/24 Order Info: [id number] - CMP Order Info: [id number] - LIPID Order Info: [id number] - TSH Order Info: 3024-7 - T4F Performed By: #### L 503.6030, L503.0106, L503.6550 #### [facility] [address] [place], [place], [address] Absolute neutrophil countOrd ered By: Delma Glover on 05-04-2024 Neutrophils (Bld) [#/Vol] 3.4 10*3/uL 2.0-7.7 [facility] Anion gap in Serum or Plasma Ordered By: Delma Glover on 05-04-2024 Anion gap [Moles/Vol] 13 mmol/L 5- [facility] BUN/creatinine ratioOrdered By: Delma Glover on 05-04-2024 Urea nitrogen/Creatinine [Mass ratio] 14.9 mg/mg - [facility] Basophil percentageOrdered B y: Delma Glover on 05-04-2024 Basophils/100 WBC (Bld) 0.8 % 0- W [facility] Bilirubin, totalOrdered By: Delma Glover on 05-04-2024 Bilirubin [Mass/Vol] 0.34 mg/dL 0.00-1.30 [facility] CBC W/Diff, Automatedon 04-22 Absolute Lymph 3.07 X10 3/uL Normal 0.83-4.51 [facility] Comment on above: Order Comment: Order Date: 01/12/24 Order Info: 0184-1 - CBCD Performed By: #### L 500.4050, L500.4100, L506.0400, L100.0100, L501.9985, L501.9520 #### [facility] [address] [place], [place], [id number] Absolute Neut 3.4 X10 3/uL Normal 2.0-7.7 [facility] Comment on above: Order Comment: Order Date: 01/12/24 Order Info: 0184-1 - CBCD Performed By: #### L 500.4050, L500.4100, L506.0400, L100.0100, L501.9985, L501.9520 #### [facility] [address] [place], [address] Basophils/100 WBC (Bld) 0.8 % Normal 0-1 [facility] Comment on above: Order Comment: Order Date: 01/12/24 Order Info: 0184-1 - CBCD Performed By: #### L 500.4050, L500.4100, L506.0400, L100.0100, L501.9985, L501.9520 #### [facility] [address] [place], [address] Eosinophils/100 WBC (Bld) 1.0 % Normal 0-5 [facility] Comment on above: Order Comment: Order Date: 01/12/24 Order Info: 0184- - CBCD Performed By: #### L 500.4050, L500.4100, L506.0400, L100.0100, L501.9985, L501.9520 #### [facility] [address] [place], [address] Erythrocyte distribution width (RBC) [Ratio] 12.1 % Normal 11.6-14.6 [facility] Comment on above: Order Comment: Order Date: 01/12/24 Order Info: 0184- - CBCD Performed By: #### L 500.4050, L500.4100, L506.0400, L100.0100, L501.9985, L501.9520 #### [facility] [address] [place], [address] Hematocrit (Bld) [Volume fraction] 38.8 % Low 40-54 [facility] Comment on above: Order Comment: Order Date: 01/12/24 Order Info: 0184-1 - CBCD Performed By: #### L 500.4050, L500.4100, L506.0400, L100.0100, L501.9985, L501.9520 #### [facility] [address] [place], [address] Hemoglobin (Bld) [Mass/Vol] 12.9 g/dL Low 13.0-16.5 [facility] Comment on above: Order Comment: Order Date: 01/12/24 Order Info: [id number] - CBCD Performed By: #### L 500.4050, L500.4100, L506.0400, L100.0100, L501.9985, L501.9520 #### [facility] [address] [place], [address] IG% 0.100 Normal 0.0-0.9 [facility] Comment on above: Order Comment: Order Date: 01/12/24 Order Info: 183-02 - CBCD Result Comment: IG% - Immature Granulocytes (promyelocytes, myelocytes and metamyelocytes) > 1% indicates that a LEFT SHIFT is Present. Performed By: #### L 500.4050, L500.4100, L506.0400, L100.0100, L501.9985, L501.9520 #### [facility] [address] [place], [address] Lymphocytes/100 WBC (Bld) 42.9 % High 19-41 [facility] Comment on above: Order Comment: Order Date: 01/12/24 Order Info: [id number] - CBCD Performed By: #### L 500.4050, L500.4100, L506.0400, L100.0100, L501.9985, L501.9520 #### [facility] [address] [place], [address] MCH (RBC) [Entitic mass] 32.3 pg High 27.0-32.0 [facility] Comment on above: Order Comment: Order Date: 01/12/24 Order Info: [id number] - CBCD Performed By: #### L 500.4050, L500.4100, L506.0400, L100.0100, L501.9985, L501.9520 #### [facility] [address] [place], [address] MCHC (RBC) [Mass/Vol] 33.2 g/dL Normal 32-36 [facility] Comment on above: Order Comment: Order Date: 01/12/24 Order Info: 018- - CBCD Performed By: #### L 500.4050, L500.4100, L506.0400, L100.0100, L501.9985, L501.9520 #### [facility] [address] [place], [address] MCV (RBC) [Entitic vol] 97.2 fL High 80-94 [facility] Comment on above: Order Comment: Order Date: 01/12/24 Order Info: 018- - CBCD Performed By: #### L 500.4050, L500.4100, L506.0400, L100.0100, L501.9985, L501.9520 #### [facility] [address] [place], [address] Monocytes/100 WBC (Bld) 7.3 % Normal 0-10 [facility] Comment on above: Order Comment: Order Date: 01/12/24 Order Info: 018- - CBCD Performed By: #### L 500.4050, L500.4100, L506.0400, L100.0100, L501.9985, L501.9520 #### [facility] [address] [place], [address] Neutrophils/100 WBC (Bld) 47.9 % Normal 47-70 [facility] Comment on above: Order Comment: Order Date: 01/12/24 Order Info: [id number]- - CBCD Performed By: #### L 500.4050, L500.4100, L506.0400, L100.0100, L501.9985, L501.9520 #### [facility] [address] [place], [address] Nucleated RBC (Bld) [#/Vol] 0 10*3/uL Normal 0-5 [facility] Comment on above: Order Comment: Order Date: 01/12/24 Order Info: [id number] - CBCD Performed By: #### L 500.4050, L500.4100, L506.0400, L100.0100, L501.9985, L501.9520 #### [facility] [address] [place], [address] Platelet mean volume (Bld) [Entitic vol] 11.0 fL Normal 6.2-12.0 [facility] Comment on above: Order Comment: Order Date: 01/12/24 Order Info: [id number] - CBCD Performed By: #### L 500.4050, L500.4100, L506.0400, L100.0100, L501.9985, L501.9520 #### [facility] [address] [place], [address] Platelets (Bld) [#/Vol] 179 10*3/uL Normal 150-450 [facility] Comment on above: Order Comment: Order Date: 01/12/24 Order Info: [id number] - CBCD Performed By: #### L 500.4050, L500.4100, L506.0400, L100.0100, L501.9985, L501.9520 #### [facility] [address] [place], [address] RBC (Bld) [#/Vol] 3.99 10*6/uL Low 4.6-6.2 [facility] Comment on above: Order Comment: Order Date: 01/12/24 Order Info: [id number] - CBCD Performed By: #### L 500.4050, L500.4100, L506.0400, L100.0100, L501.9985, L501.9520 #### [facility] [address] [place], [address] RDW SD 44.0 fl High 35.1-43.9 [facility] Comment on above: Order Comment: Order Date: 01/12/24 Order Info: [id number] - CBCD Performed By: #### L 500.4050, L500.4100, L506.0400, L100.0100, L501.9985, L501.9520 #### [facility] [address] [place], [address] WBC (Bld) [#/Vol] 7.2 10*3/uL Normal 4.4-11.0 [facility] Comment on above: Order Comment: Order Date: 01/12/24 Order Info: [id number] - CBCD Performed By: #### L 500.4050, L500.4100, L506.0400, L100.0100, L501.9985, L501.9520 #### [facility] [address] [place], [place], [id number] Calculated total iron bindin g capacityOrdered By: Delma Glover on 05-04-2024 Total Iron Binding Capacity 271 ug/dL 250-450 [facility] Calculated very low density lipoprotein (VLDL) cholesterol measurementOrdered By: Delma Glover on 05-04-2024 VLDL Cholesterol 11 mg/dL 5-40 [facility] Carbon dioxide, total [Moles /volume] in Central venous bloodOrdered By: Delma Glover on 05-04-2024 CO2 [Moles/Vol] 21.0 mmol/L 21.0-32.0 [facility] Chloride assayOrdered By: Viviana Glover on 05-04-2024 Chloride [Moles/Vol] 103 mmol/L 98-108 [facility] Comprehensive Metabolic Prof ilon 05-04-2024 Albumin [Mass/Vol] 4.3 g/dL Normal 3.4-4.8 [facility] Comment on above: Order Comment: Order Date: 01/12/24Order Info: [id number] - CMPOrder Info: [id number] - LIPIDOrder Info: [id number] - TSHOrder Info: 7 - T4F Performed By: #### L 500.4050, L500.4100, L506.0400, L100.0100, L501.9985, L501.9520 ####[facility] [address] [place], [address] Albumin/Globulin [Mass ratio] 1.6 {ratio} Normal 0.9-2.4 [facility] Comment on above: Order Comment: Order Date: 01/12/24Order Info: 86-1 - CMPOrder Info: - LIPIDOrder Info: [id number] - TSHOrder Info: [id number] - T4F Performed By: #### L 500.4050, L500.4100, L506.0400, L100.0100, L501.9985, L501.9520 ####[facility] [address] [place], [address] ALK PHOS 71 U/L Normal 40-129 [facility] Comment on above: Order Comment: Order Date: 01/12/24Order Info: [id number] - CMPOrder Info: - LIPIDOrder Info: [id number] - TSHOrder Info: [id number] - T4F Performed By: #### L 500.4050, L500.4100, L506.0400, L100.0100, L501.9985, L501.9520 ####[facility] [address] [place], [address] ALT [Catalytic activity/Vol] 14 U/L Normal <=46 [facility] Comment on above: Order Comment: Order Date: 01/12/24Order Info: [id number] - CMPOrder Info: [id number] - LIPIDOrder Info: [id number] - TSHOrder Info: 7 - T4F Performed By: #### L 500.4050, L500.4100, L506.0400, L100.0100, L501.9985, L501.9520 ####[facility] [address] [place], [address] AST [Catalytic activity/Vol] 25 U/L Normal <=37 [facility] Comment on above: Order Comment: Order Date: 01/12/24Order Info: [id number] - CMPOrder Info: [id number] - LIPIDOrder Info: [id number] - TSHOrder Info: [id number] - T4F Performed By: #### L 500.4050, L500.4100, L506.0400, L100.0100, L501.9985, L501.9520 ####[facility] [address] [place], [address] Bilirubin [Mass/Vol] 0.34 mg/dL Normal 0.00-1.30 [facility] Comment on above: Order Comment: Order Date: 01/12/24Order Info: 07- - CMPOrder Info: [id number] - LIPIDOrder Info: [id number] - TSHOrder Info: [id number] - T4F Performed By: #### L 500.4050, L500.4100, L506.0400, L100.0100, L501.9985, L501.9520 ####[facility] [address] [place], [address] BUN/CRE 14.9 RATIO Normal 10-20 [facility] Comment on above: Order Comment: Order Date: 01/12/24Order Info: 07- - CMPOrder Info: [id number] - LIPIDOrder Info: [id number] - TSHOrder Info: [id number] - T4F Performed By: #### L 500.4050, L500.4100, L506.0400, L100.0100, L501.9985, L501.9520 ####[facility] [address] [place], [address] Calcium [Mass/Vol] 9.4 mg/dL Normal 7.6-11.0 [facility] Comment on above: Order Comment: Order Date: 01/12/24Order Info: 86-1 - CMPOrder Info: [id number] - LIPIDOrder Info: [id number] - TSHOrder Info: [id number] - T4F Performed By: #### L 500.4050, L500.4100, L506.0400, L100.0100, L501.9985, L501.9520 ####[facility] [address] [place], [address] Chloride [Moles/Vol] 103 mmol/L Normal 98-108 [facility] Comment on above: Order Comment: Order Date: 01/12/24Order Info: 785- - CMPOrder Info: [id number] - LIPIDOrder Info: 3 - TSHOrder Info: [id number] - T4F Performed By: #### L 500.4050, L500.4100, L506.0400, L100.0100, L501.9985, L501.9520 ####[facility] [address] [place], [address] CO2 [Moles/Vol] 21.0 mmol/L Normal 21.0-32.0 [facility] Comment on above: Order Comment: Order Date: 01/12/24Order Info: 785- - CMPOrder Info: [id number] - LIPIDOrder Info: 3 - TSHOrder Info: [id number] - T4F Performed By: #### L 500.4050, L500.4100, L506.0400, L100.0100, L501.9985, L501.9520 ####[facility] [address] [place], [address] Creatinine [Mass/Vol] 1.21 mg/dL High 0.70-1.20 [facility] Comment on above: Order Comment: Order Date: 01/12/24Order Info: [id number] - CMPOrder Info: [id number] - LIPIDOrder Info: 63 - TSHOrder Info: [id number] - T4F Performed By: #### L 500.4050, L500.4100, L506.0400, L100.0100, L501.9985, L501.9520 ####[facility] [address] [place], [place], [address] GAP 13 Normal 5-15 [facility] Comment on above: Order Comment: Order Date: 01/12/24Order Info: 86-1 - CMPOrder Info: [id number] - LIPIDOrder Info: 3 - TSHOrder Info: [id number] - T4F Performed By: #### L 500.4050, L500.4100, L506.0400, L100.0100, L501.9985, L501.9520 ####[facility] [address] [place], [place], [address] GFR/1.73 sq M.predicted among non-blacks MDRD (S/P/Bld) [Vol rate/Area] 62 mL/min/{1.73_m2} Normal >60 [facility] Comment on above: Order Comment: Order Date: 01/12/24Order Info: [id number] - CMPOrder Info: - LIPIDOrder Info: [id number] - TSHOrder Info: 7 - T4F Result Comment: mL/m in/1.73m2 CKD-EPI Creatinine Equation (2020) Performed By: #### L 500.4050, L500.4100, L506.0400, L100.0100, L501.9985, L501.9520 ####[facility] [address] [place], [place], [address] Globulin (S) [Mass/Vol] 2.7 g/dL Normal 2.2-4.2 [facility] Comment on above: Order Comment: Order Date: 01/12/24Order Info: 86-1 - CMPOrder Info: [id number] - LIPIDOrder Info: 3 - TSHOrder Info: [id number] - T4F Performed By: #### L 500.4050, L500.4100, L506.0400, L100.0100, L501.9985, L501.9520 ####[facility] [address] [place], [address] Glucose [Mass/Vol] 121 mg/dL High 70-99 [facility] Comment on above: Order Comment: Order Date: 01/12/24Order Info: [id number] - CMPOrder Info: [id number] - LIPIDOrder Info: [id number] - TSHOrder Info: [id number] - T4F Performed By: #### L 500.4050, L500.4100, L506.0400, L100.0100, L501.9985, L501.9520 ####[facility] [address] [place], [address] Potassium [Moles/Vol] 4.5 mmol/L Normal 3.3-5.1 [facility] Comment on above: Order Comment: Order Date: 01/12/24Order Info: [id number] - CMPOrder Info: [id number] - LIPIDOrder Info: 3 - TSHOrder Info: [id number] - T4F Performed By: #### L 500.4050, L500.4100, L506.0400, L100.0100, L501.9985, L501.9520 ####[facility] [address] [place], [address] Sodium [Moles/Vol] 136 mmol/L Normal 133-145 [facility] Comment on above: Order Comment: Order Date: 01/12/24Order Info: 86-1 - CMPOrder Info: [id number] - LIPIDOrder Info: [id number] - TSHOrder Info: [id number] - T4F Performed By: #### L 500.4050, L500.4100, L506.0400, L100.0100, L501.9985, L501.9520 ####[facility] [address] [place], [address] T PROT 7.0 g/dL Normal 5.9-8.4 [facility] Comment on above: Order Comment: Order Date: 01/12/24Order Info: [id number] - CMPOrder Info: [id number] - LIPIDOrder Info: 3 - TSHOrder Info: 7 - T4F Performed By: #### L 500.4050, L500.4100, L506.0400, L100.0100, L501.9985, L501.9520 ####[facility] [address] [place], [place], [address] Urea nitrogen [Mass/Vol] 18 mg/dL Normal 4-19 [facility] Comment on above: Order Comment: Order Date: 01/12/24Order Info: [id number] - CMPOrder Info: [id number] - LIPIDOrder Info: 3 - TSHOrder Info: 7 - T4F Performed By: #### L 500.4050, L500.4100, L506.0400, L100.0100, L501.9985, L501.9520 ####[facility] [address] [place], [place], [address] Eosinophil percentageOrdered By: Delma Glover on 05-04-2024 Eosinophils/100 WBC (Bld) 1.0 % 0-5 [facility] Erythrocyte distribution wid th ratioOrdered By: Delma Glover on 05-04-2024 Erythrocyte distribution width (RBC) [Ratio] 12.1 % 11.6-14.6 [facility] Erythrocyte distribution wid th standard deviationOrdered By: Delma Glover on 05-04-2024 Erythrocyte distribution width (RBC) [Entitic vol] 44.0 fL High 35.1-43.9 [facility] GFR/1.73 sq M.predicted yamilka g non-blacks MDRD (S/P/Bld) [Vol rate/Area]Ordered By: Delma Glover on 05-04-2024 Estimated GFR (MDRD) Non-Af Amer 62 >60 [facility] Comment on above: mL/min/1.73m2 CKD-EP I Creatinine Equation (2020) Hematocrit Auto (Bld) [Volum e fraction]Ordered By: Delma Glover on 05-04-2024 Hematocrit (Bld) [Volume fraction] 38.8 % Low 40-54 [facility] Hemoglobin A1con 05-04-2024 HbA1c (Bld) [Mass fraction] 5.9 % Normal <=5.6 [facility] Comment on above: Order Comment: Order Date: 01/12/24 Order Info: [id number] - A1C Performed By: #### L 500.4050, L500.4100, L506.0400, L100.0100, L501.9985, L501.9520 #### [facility] [address] [place], [address] Hemoglobin A1c percentageOrd ered By: Delma Glover on 05-04-2024 HbA1c (Bld) [Mass fraction] 5.9 % >5.7 [facility] Hemoglobin measurementOrdere d By: Delma Glover on 05-04-2024 Hemoglobin (Bld) [Mass/Vol] 12.9 g/dL Low 13.0-16.5 [facility] Immature granulocytes/100 WB C Auto (Bld)Ordered By: Delma Glover on 05-04-2024 Immature granulocytes/100 WBC (Bld) 0.100 % 0.0-0.9 [facility] Comment on above: IG% - Immature Granu locytes (promyelocytes, myelocytes and metamyelocytes) > 1% indicates that a LEFT SHIFT is Present. Iron (Unsp spec) [Mass/Mass] Ordered By: Delma Glover on 05-04-2024 Iron [Mass/Vol] 105 ug/dL 65-175 [facility] Iron saturation [Mass fracti on]Ordered By: Delma Glover on 05-04-2024 Iron Saturation 39.0 % 9-55 [facility] LDL calc ser/plasOrdered By: Delma Glover on 05-04-2024 LDL Cholesterol, Calculated 69 mg/dL [facility] Comment on above: Njqdrxdlnp=374-713 m g/dL & Higher Gusi=215 mg/dL or greater Laboratory - Chemistry and C hemistry - challengeOrdered By: Delma Glover on 05-04-2024 AST [Catalytic activity/Vol] 25 U/L <38 [facility] Lipid Profileon 05-04-2024 CHOL:HDL 2.48 Normal [facility] Comment on above: Order Comment: Order Date: 01/12/24Order Info: 07- - CMPOrder Info: [id number] - LIPIDOrder Info: 3 - TSHOrder Info: 7 - T4F Performed By: #### L 500.4050, L500.4100, L506.0400, L100.0100, L501.9985, L501.9520 ####[facility] [address] [place], [address] Cholesterol [Mass/Vol] 135 mg/dL Normal <=200 [facility] Comment on above: Order Comment: Order Date: 01/12/24Order Info: [id number] - CMPOrder Info: [id number] - LIPIDOrder Info: [id number] - TSHOrder Info: 7 - T4F Result Comment: Chol esterol level, Desirable <200 mg/dL Borderline high cholesterol 200-239 mg/dL High cholesterol >=240 mg/dL Recommendations of the NCEP Adult Treatment Panel for the following risk-cutoff thresholds for the [place] population. Performed By: #### L 500.4050, L500.4100, L506.0400, L100.0100, L501.9985, L501.9520 ####[facility] [address] [place], [address] Cholesterol in HDL [Mass/Vol] 55 mg/dL Normal [facility] Comment on above: Order Comment: Order Date: 01/12/24Order Info: 07 - CMPOrder Info: [id number] - LIPIDOrder Info: [id number] - TSHOrder Info: [id number] - T4F Result Comment: [place] onal Cholesterol Education Program (NCEP) guidelines: <40 mg/dL: Low HDL-cholesterol (major risk factor for CHD) >= 60 mg/dL: High HDL-cholesterol (negative risk factor for CHD) HDL-cholesterol is affected by a number of factors, e.g. smoking, exercise, hormones, sex and age. Performed By: #### L 500.4050, L500.4100, L506.0400, L100.0100, L501.9985, L501.9520 ####[facility] [address] [place], [address] Cholesterol in LDL [Mass/Vol] 69 mg/dL Normal [facility] Comment on above: Order Comment: Order Date: 01/12/24Order Info: 86-1 - CMPOrder Info: [id number] - LIPIDOrder Info: 3 - TSHOrder Info: [id number] - T4F Result Comment: Bord ohxdgg=472-583 mg/dL Higher Irxn=285 mg/dL or greater Performed By: #### L 500.4050, L500.4100, L506.0400, L100.0100, L501.9985, L501.9520 ####[facility] [address] [place], [address] Cholesterol in VLDL [Mass/Vol] 11 mg/dL Normal 5-40 [facility] Comment on above: Order Comment: Order Date: 01/12/24Order Info: [id number] - CMPOrder Info: [id number] - LIPIDOrder Info: [id number] - TSHOrder Info: 7 - T4F Performed By: #### L 500.4050, L500.4100, L506.0400, L100.0100, L501.9985, L501.9520 ####[facility] [address] [place], [address] Triglyceride [Mass/Vol] 57 mg/dL Normal [facility] Comment on above: Order Comment: Order Date: 01/12/24Order Info: [id number] - CMPOrder Info: [id number] - LIPIDOrder Info: [id number] - TSHOrder Info: [id number] - T4F Result Comment: The drugs N-Acetylcysteine and Metamizole may falsely depress this assay. Normal range: <150 mg/dL Borderline High: 150-199 mg/dL High: 200-499 mg/dL Very High: >500 mg/dL Performed By: #### L 500.4050, L500.4100, L506.0400, L100.0100, L501.9985, L501.9520 ####[facility] [address] [place], [address] Lymphocytes Auto (Unsp spec) [#/Vol]Ordered By: Delma Glover on 05-04-2024 Lymphocytes (Bld) [#/Vol] 3.07 10*3/uL 0.83-4.51 [facility] Lymphocytes/100 WBC Auto (Un sp spec)Ordered By: Delma Glover on 05-04-2024 Lymphocytes/100 WBC (Bld) 42.9 % High 19-41 [facility] MCV (mean corpuscular volume ) determinationOrdered By: Delma Glover on 05-04-2024 MCV (RBC) [Entitic vol] 97.2 fL High 80-94 [facility] Mean corpuscular hemoglobin (MCH) determinationOrdered By: Delma Glover on 05-04-2024 MCH (RBC) [Entitic mass] 32.3 pg High 27.0-32.0 [facility] Mean corpuscular hemoglobin concentration (MCHC) determinationOrdered By: Delma Glover on 05-04-2024 MCHC (RBC) [Mass/Vol] 33.2 g/dL 32-36 [facility] Mean platelet volume determi nationOrdered By: Delma Glover on 05-04-2024 Platelet mean volume (Bld) [Entitic vol] 11.0 fL 6.2-12.0 [facility] Monocyte percentageOrdered B y: Delma Glover on 05-04-2024 Monocytes/100 WBC (Bld) 7.3 % 0-10 [facility] Neutrophil percentageOrdered By: Delma Glover on 05-04-2024 Neutrophils/100 WBC (Bld) 47.9 % 47-70 [facility] No Panel InformationOrdered By: Delma Glover on 05-04-2024 Unsaturated Iron Binding Capacity 166 ug/dL Low 228-428 [facility] Nucleated red blood cell per centageOrdered By: Delma Glover on 05-04-2024 Nucleated RBC/100 WBC (Bld) [Ratio] 0 % 0-5 [facility] Platelet countOrdered By: Viviana Glover on 05-04-2024 Platelets (Bld) [#/Vol] 179 10*3/uL 150-450 [facility] Potassium (Unsp spec) [Mass/ Vol]Ordered By: Delma Glover on 05-04-2024 Potassium [Moles/Vol] 4.5 mmol/L 3.3-5.1 [facility] RBC Auto (Bld) [#/Vol]Ordere d By: Delma Glover on 05-04-2024 RBC (Bld) [#/Vol] 3.99 10*6/uL Low 4.6-6.2 [facility] Screening total cholesterol/ high density lipoprotein (HDL) cholesterol ratioOrdered By: Delma Glover on 05-04-2024 Cholesterol.total/Choles terol in HDL [Mass ratio] 2.48 {ratio} [facility] Serum creatinine measurement (mass/volume)Ordered By: Delma Glover on 05-04-2024 Creatinine [Mass/Vol] 1.21 mg/dL High 0.70-1.20 [facility] Serum globulin measurementOr dered By: Delma Glover on 05-04-2024 Globulin (S) [Mass/Vol] 2.7 g/dL 2.2-4.2 [facility] Serum glucose measurement (m ass/volume)Ordered By: Delma Glover on 05-04-2024 Glucose [Mass/Vol] 121 mg/dL High 70-99 [facility] Serum or plasma alanine hunter otransferase (ALT) measurementOrdered By: Delma Glover on 05-04-2024 ALT [Catalytic activity/Vol] 14 U/L <47 [facility] Serum or plasma albumin linda urement (mass/volume)Ordered By: Delma Glover on 05-04-2024 Albumin [Mass/Vol] 4.3 g/dL 3.4-4.8 [facility] Serum or plasma albumin/glob ulin mass ratioOrdered By: Delma Glover on 05-04-2024 Albumin/Globulin [Mass ratio] 1.6 {ratio} 0.9-2.4 [facility] Serum or plasma alkaline cesar sphatase measurementOrdered By: Delma Glover on 05-04-2024 ALP [Catalytic activity/Vol] 71 U/L 40-129 [facility] Serum or plasma calcium linda urement (mass/volume)Ordered By: Delma Glover on 05-04-2024 Calcium [Mass/Vol] 9.4 mg/dL 7.6-11.0 [facility] Serum or plasma cholesterol in HDL measurement (mass/volume)Ordered By: Delma Glover on 05-04-2024 Cholesterol in HDL [Mass/Vol] 55 mg/dL >40 [facility] Comment on above: National Cholesterol Education Program (NCEP) guidelines:<40 mg/dL: Low HDL-cholesterol (major risk factor for CHD)>= 60 mg/dL: High HDL-cholesterol (negative risk factor for CHD)HDL-cholesterol is affected by a number of factors, e.g. smoking, exercise, hormones, sex and age. Serum or plasma cholesterol measurement (mass/volume)Ordered By: Delma Glover on 05-04-2024 Cholesterol [Mass/Vol] 135 mg/dL <201 [facility] Comment on above: Cholesterol level, D esirable <200 mg/dLBorderline high cholesterol 200-239 mg/dLHigh cholesterol >=240 mg/dLRecommendations of the NCEP Adult Treatment Panel for the following risk-cutoff thresholds for the [place] population. Serum or plasma ferritin noel surement (mass/volume)Ordered By: Delma Glover on 05-04-2024 Ferritin [Mass/Vol] 210 ng/mL 37-417 [facility] Serum or plasma urea nitroge n measurement (mass/volume)Ordered By: Delma Glover on 05-04-2024 Urea nitrogen [Mass/Vol] 18 mg/dL 4-19 [facility] Sodium levelOrdered By: Delma Glover on 05-04-2024 Sodium [Moles/Vol] 136 mmol/L 133-145 [facility] T4 Free Directon 05-04-2024 T4 FREE DIRECT 1.60 ng/dL High 0.76-1.46 [facility] Comment on above: Order Comment: Order Date: 01/12/24Order Info: [id number] - CMPOrder Info: [id number] - LIPIDOrder Info: [id number] - TSHOrder Info: [id number] - T4F Performed By: #### L 500.4050, L500.4100, L506.0400, L100.0100, L501.9985, L501.9520 ####[facility] [address] [place], [place], [address] T4 freeOrdered By: Delma ayala on 05-04-2024 Free T4 [Mass/Vol] 1.60 ng/dL High 0.76-1.46 [facility] TSH DL <= 0.005 mIU/L QnOrde red By: Delma Glover on 05-04-2024 Thyroid Stimulating Hormone (TSH) 2.360 uIU/mL 0.300-4.200 [facility] Thyroid Stim Hormone (TSH)on 05-04-2024 TSH 2.360 uIU/mL Normal 0.300-4.200 [facility] Comment on above: Order Comment: Order Date: 01/12/24Order Info: [id number] - CMPOrder Info: [id number] - LIPIDOrder Info: [id number] - TSHOrder Info: [id number] - T4F Performed By: #### L 500.4050, L500.4100, L506.0400, L100.0100, L501.9985, L501.9520 ####[facility] [address] [place], [place], [id number] Total proteinOrdered By: Vj Glover on 05-04-2024 Protein [Mass/Vol] 7.0 g/dL 5.9-8.4 [facility] Triglycerides measurementOrd ered By: Delma Glover on 05-04-2024 Triglyceride [Mass/Vol] 57 mg/dL <199 [facility] Comment on above: The drugs N-Acetylcy steine and Metamizole may falsely depress this assay. Normal range: <150 mg/dLBorderline High: 150-199 mg/dLHigh: 200-499 mg/dLVery High: >500 mg/dL Vitamin B12 ser/plasOrdered By: Delma Glover on 05-04-2024 Cobalamin (Vitamin B12) [Mass/Vol] 313 pg/mL 180-914 [facility] White blood cell (WBC) count Ordered By: Delma Glover on 05-04-2024 WBC (Bld) [#/Vol] 7.2 10*3/uL 4.4-11.0 [facility] OT General Evaluationon 03-25 OT General Evaluation [facility] Occupational Therapy [facility] [address] [place] [address] / REHABILITATION SERVICES INITIAL EVALUATION MR#: [id number] Acct: [id number] Name: SILVIA NICOLE II Rep #: [id number] : 1945 78 From: Keely Styles Referring Dr.: Dr. Amadeo Longo DO Status: REG RCR Insurance: MEDICARE PART A B Eval Date: [employer] Patient's Visit Information Visit Information Visit Information: SILVIA NICOLE II is a 78 year old M, referred to Occupational Therapy by Dr. Amadeo Longo DO, with a diagnosis of unilateral primary osteo of cmc R, osteo of R wrist. 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 Pt states he received an injection about a year ago and then 2 injections last week. Pt states these help until he starts doing repetitive motions again. Pt does report per x ray there was a small tear at middle point of dorsal wrist. pt states he has worn a carpal tunnel brace. pt has tried to modify things at home to assist with pain in wrist. pt is R hand dominant. Pain R wrist: Current Pain Intensity: 0 Pain Intensity Range: 6 Objective Objective/Observatio n: pt arrives no wrist brace no visible swelling of R wrist noted ROM Elbow: wfl Forearm: wfl Wrist: R 55/50 L 55/55 MP: R 55 L 50 IP: R 60 L 65 Radial Abduction: R 70 L 70 Opposition: wfl ROM Comments: able to make full composite fist B R RD [address] 35 UD 35 Strength Supervisor Throwing Department: R 65# L 90# Lateral Pinch: R 13# L 13# Tripod Pinch: R 12# L 12# Edema Wrist: R 17 cm L 16.5 cm Sensation Sensation Comments: denies numbness and tingling states a small bit in IF Quick DASH-Disab of Arm,Shoulder Hand Quick DASH Score: 54.5450 Goals Goal:ROM equal to unaffected hand: Yes Goal:Supervisor Throwing Department/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 at least 75% of unaffected hand: Yes Goal:No pain with affected hand use: Yes Goal:Full use of affected hand in daily activities including work: Yes Comment: QUICK DASH Other Goal: pt will improve quick dash score by 10 points or more for increased functional use of RUE Pt will verbalize/ demonstrate 100% accuracy in proper R wrist bracing for joint protection by third session Pt will verbalize/ demonstrate 100% accuracy in proper joint positioning and protection techniques by discharge Rehabilitation General Assessment: This 78 year old male arrives with dx of OA R cmc and wrist. pt presents with slight difference in ROM, decreased strength of R hand, increased pain and swelling decreased functional use of R dominant side indicating need for OT services 1-2x a week for 4-6 weeks. Rehabilitation Potential: Good Anticipated Interventions Anticipated Interventions: A/AAROM/PROM, Strengthening, Triggerpoint Release, Modalities, Orthoses, Joint Protection/Energy Conservation, Education re Diagnosis and Home Program Visit Plan Frequency: 1-2x /Week Duration: 4-6 Weeks General Plan: AROM gentle isometric thumb abduction / IF abduction trigger point release bracing soft tissue mobilization joint protection pain management TEXT: Thank you for the opportunity to evaluate your patient. For Medicare and Medicare HMO plans, please review the plan of care and approve it. It will need to be FAXED BACK to us at [phone] for Medicare purposes. Please let me know if there are questions or concerns regarding this plan of care. Physician Signature: D ate: 04/04/24 1325 CC: Dr. Delma Glover MD; Dr. Amadeo Longo DO CK Signed For Medicare only, by signing this I certify the plan of care. Physicians Signature Date Normal [facility] CBC W/Diff, Automatedon 11- Absolute Lymph 3.18 X10 3/uL Normal 0.83-4.51 [facility] Comment on above: Order Comment: Order Date: 09/16/23Order Info: [id number] - CBCD Performed By: #### L 506.0400, L500.4050, L100.0100, L501.9985, L501.9520, L500.4100 ####[facility] [address] [place], [address] Absolute Neut 2.5 X10 3/uL Normal 2.0-7.7 [facility] Comment on above: Order Comment: Order Date: 09/16/23Order Info: [id number] - CBCD Performed By: #### L 506.0400, L500.4050, L100.0100, L501.9985, L501.9520, L500.4100 ####[facility] [address] [place], [address] Basophils/100 WBC (Bld) 0.8 % Normal 0-1 [facility] Comment on above: Order Comment: Order Date: 09/16/23Order Info: [id number] - CBCD Performed By: #### L 506.0400, L500.4050, L100.0100, L501.9985, L501.9520, L500.4100 ####[facility] [address] [place], [address] Eosinophils/100 WBC (Bld) 2.0 % Normal 0-5 [facility] Comment on above: Order Comment: Order Date: 09/16/23Order Info: [id number] - CBCD Performed By: #### L 506.0400, L500.4050, L100.0100, L501.9985, L501.9520, L500.4100 ####[facility] [address] [place], [address] Erythrocyte distribution width (RBC) [Ratio] 12.2 % Normal 11.6-14.6 [facility] Comment on above: Order Comment: Order Date: 09/16/23Order Info: [id number] - CBCD Performed By: #### L 506.0400, L500.4050, L100.0100, L501.9985, L501.9520, L500.4100 ####[facility] [address], [address] Hematocrit (Bld) [Volume fraction] 41.8 % Normal 40-54 [facility] Comment on above: Order Comment: Order Date: 09/16/23Order Info: [id number] - CBCD Performed By: #### L 506.0400, L500.4050, L100.0100, L501.9985, L501.9520, L500.4100 ####[facility] [address] [place], [place], [phone]) Hemoglobin (Bld) [Mass/Vol] 13.2 g/dL Normal 13.0-16.5 [facility] Comment on above: Order Comment: Order Date: 09/16/23Order Info: [id number] - CBCD Performed By: #### L 506.0400, L500.4050, L100.0100, L501.9985, L501.9520, L500.4100 ####[facility] [address] [place], [address] IG% 0.200 Normal 0.0-0.9 [facility] Comment on above: Order Comment: Order Date: 09/16/23Order Info: [id number] - CBCD Result Comment: IG% - Immature Granulocytes (promyelocytes, myelocytes and metamyelocytes) > 1% indicates that a LEFT SHIFT is Present. Performed By: #### L 506.0400, L500.4050, L100.0100, L501.9985, L501.9520, L500.4100 ####[facility] [address] [place], [address] Lymphocytes/100 WBC (Bld) 48.8 % High 19-41 [facility] Comment on above: Order Comment: Order Date: 09/16/23Order Info: [id number] - CBCD Performed By: #### L 506.0400, L500.4050, L100.0100, L501.9985, L501.9520, L500.4100 ####[facility] [address] [place], [address] MCH (RBC) [Entitic mass] 32.2 pg High 27.0-32.0 [facility] Comment on above: Order Comment: Order Date: 09/16/23Order Info: [id number] - CBCD Performed By: #### L 506.0400, L500.4050, L100.0100, L501.9985, L501.9520, L500.4100 ####[facility] [address] [place], [address] MCHC (RBC) [Mass/Vol] 31.6 g/dL Low 32-36 [facility] Comment on above: Order Comment: Order Date: 09/16/23Order Info: [id number] - CBCD Performed By: #### L 506.0400, L500.4050, L100.0100, L501.9985, L501.9520, L500.4100 ####[facility] [address], [address] MCV (RBC) [Entitic vol] 102.0 fL High 80-94 [facility] Comment on above: Order Comment: Order Date: 09/16/23Order Info: [id number] - CBCD Performed By: #### L 506.0400, L500.4050, L100.0100, L501.9985, L501.9520, L500.4100 ####[facility] [address] [place], [address] Monocytes/100 WBC (Bld) 9.4 % Normal 0-10 [facility] Comment on above: Order Comment: Order Date: 09/16/23Order Info: [id number] - CBCD Performed By: #### L 506.0400, L500.4050, L100.0100, L501.9985, L501.9520, L500.4100 ####[facility] [address] [place], [address] Neutrophils/100 WBC (Bld) 38.8 % Low 47-70 [facility] Comment on above: Order Comment: Order Date: 09/16/23Order Info: [id number] - CBCD Performed By: #### L 506.0400, L500.4050, L100.0100, L501.9985, L501.9520, L500.4100 ####[facility] [address] [place], [address] Nucleated RBC (Bld) [#/Vol] 0 10*3/uL Normal 0-5 [facility] Comment on above: Order Comment: Order Date: 09/16/23Order Info: [id number] - CBCD Performed By: #### L 506.0400, L500.4050, L100.0100, L501.9985, L501.9520, L500.4100 ####[facility] [address] [place], [address] Platelet mean volume (Bld) [Entitic vol] 11.4 fL Normal 6.2-12.0 [facility] Comment on above: Order Comment: Order Date: 09/16/23Order Info: [id number] - CBCD Performed By: #### L 506.0400, L500.4050, L100.0100, L501.9985, L501.9520, L500.4100 ####[facility] [address] [place], [address] Platelets (Bld) [#/Vol] 132 10*3/uL Low 150-450 [facility] Comment on above: Order Comment: Order Date: 09/16/23Order Info: 018- - CBCD Performed By: #### L 506.0400, L500.4050, L100.0100, L501.9985, L501.9520, L500.4100 ####[facility] [address] [place], [address] RBC (Bld) [#/Vol] 4.10 10*6/uL Low 4.6-6.2 [facility] Comment on above: Order Comment: Order Date: 09/16/23Order Info: 018- - CBCD Performed By: #### L 506.0400, L500.4050, L100.0100, L501.9985, L501.9520, L500.4100 ####[facility] [address] [place], [address] RDW SD 45.6 fl High 35.1-43.9 [facility] Comment on above: Order Comment: Order Date: 09/16/23Order Info: 018- - CBCD Performed By: #### L 506.0400, L500.4050, L100.0100, L501.9985, L501.9520, L500.4100 ####[facility] [address] [place], [address] WBC (Bld) [#/Vol] 6.5 10*3/uL Normal 4.4-11.0 [facility] Comment on above: Order Comment: Order Date: 09/16/23Order Info: 018- - CBCD Performed By: #### L 506.0400, L500.4050, L100.0100, L501.9985, L501.9520, L500.4100 ####[facility] [address] [place], [address] Comprehensive Metabolic Prof ilon 01-11-2024 Albumin [Mass/Vol] 3.8 g/dL Normal 3.2-5.0 [facility] Comment on above: Order Comment: Order Date: 09/16/23Order Info: 86-1 - CMPOrder Info: [id number] - LIPIDOrder Info: [id number] - TSHOrder Info: [id number] - T4F Performed By: #### L 506.0400, L500.4050, L100.0100, L501.9985, L501.9520, L500.4100 ####[facility] [address] [place], [address] Albumin/Globulin [Mass ratio] 1.2 {ratio} Normal 0.9-2.4 [facility] Comment on above: Order Comment: Order Date: 09/16/23Order Info: 86-1 - CMPOrder Info: [id number] - LIPIDOrder Info: [id number] - TSHOrder Info: [id number] - T4F Performed By: #### L 506.0400, L500.4050, L100.0100, L501.9985, L501.9520, L500.4100 ####[facility] [address] [place], [address] ALK P 74 U/L Normal 45-117 [facility] Comment on above: Order Comment: Order Date: 09/16/23Order Info: 86-1 - CMPOrder Info: [id number] - LIPIDOrder Info: [id number] - TSHOrder Info: [id number] - T4F Performed By: #### L 506.0400, L500.4050, L100.0100, L501.9985, L501.9520, L500.4100 ####[facility] [address] [place], [address] ALT [Catalytic activity/Vol] 17 U/L Normal 16-61 [facility] Comment on above: Order Comment: Order Date: 09/16/23Order Info: 86-1 - CMPOrder Info: [id number] - LIPIDOrder Info: [id number] - TSHOrder Info: [id number] - T4F Performed By: #### L 506.0400, L500.4050, L100.0100, L501.9985, L501.9520, L500.4100 ####[facility] [address] [place], [address] AST [Catalytic activity/Vol] 29 U/L Normal 15-37 [facility] Comment on above: Order Comment: Order Date: 09/16/23Order Info: 86-1 - CMPOrder Info: [id number] - LIPIDOrder Info: [id number] - TSHOrder Info: [id number] - T4F Performed By: #### L 506.0400, L500.4050, L100.0100, L501.9985, L501.9520, L500.4100 ####[facility] [address] [place], [address] Bilirubin [Mass/Vol] 0.60 mg/dL Normal 0.20-1.00 [facility] Comment on above: Order Comment: Order Date: 09/16/23Order Info: 86-1 - CMPOrder Info: [id number] - LIPIDOrder Info: [id number] - TSHOrder Info: [id number] - T4F Result Comment: For patients on eltrombopag therapy, use of Dimension [place] TBIL is not recommended. Performed By: #### L 506.0400, L500.4050, L100.0100, L501.9985, L501.9520, L500.4100 ####[facility] [address] [place], [address] BUN/CRE 15.9 RATIO Normal 10-20 [facility] Comment on above: Order Comment: Order Date: 09/16/23Order Info: 86-1 - CMPOrder Info: [id number] - LIPIDOrder Info: [id number] - TSHOrder Info: [id number] - T4F Performed By: #### L 506.0400, L500.4050, L100.0100, L501.9985, L501.9520, L500.4100 ####[facility] [address] [place], [address] CA,Total 9.0 mg/dL Normal 8.5-10.1 [facility] Comment on above: Order Comment: Order Date: 09/16/23Order Info: 86-1 - CMPOrder Info: [id number] - LIPIDOrder Info: 3 - TSHOrder Info: [id number] - T4F Performed By: #### L 506.0400, L500.4050, L100.0100, L501.9985, L501.9520, L500.4100 ####[facility] [address] [place], [place], [address] Chloride [Moles/Vol] 108 mmol/L High 98-107 [facility] Comment on above: Order Comment: Order Date: 09/16/23Order Info: 785- - CMPOrder Info: [id number] - LIPIDOrder Info: [id number] - TSHOrder Info: [id number] - T4F Performed By: #### L 506.0400, L500.4050, L100.0100, L501.9985, L501.9520, L500.4100 ####[facility] [address] [place], [address] CO2 [Moles/Vol] 27.0 mmol/L Normal 21.0-32.0 [facility] Comment on above: Order Comment: Order Date: 09/16/23Order Info: 86-1 - CMPOrder Info: [id number] - LIPIDOrder Info: 3 - TSHOrder Info: [id number] - T4F Performed By: #### L 506.0400, L500.4050, L100.0100, L501.9985, L501.9520, L500.4100 ####[facility] [address] [place], [address] Creatinine [Mass/Vol] 1.26 mg/dL Normal 0.70-1.30 [facility] Comment on above: Order Comment: Order Date: 09/16/23Order Info: [id number] - CMPOrder Info: [id number] - LIPIDOrder Info: [id number] - TSHOrder Info: [id number] - T4F Result Comment: The validity of the calculated GFR GFRAA in patients over 70 years has not been determined. Clinical correlation is essential. Performed By: #### L 506.0400, L500.4050, L100.0100, L501.9985, L501.9520, L500.4100 ####[facility] [address] [place], [address] EST GFR - AA 72 mL/min Normal >60 [facility] Comment on above: Order Comment: Order Date: 09/16/23Order Info: [id number] - CMPOrder Info: [id number] - LIPIDOrder Info: 63 - TSHOrder Info: [id number] - T4F Result Comment: Afri can Citizen Of [place] GFR Calc Performed By: #### L 506.0400, L500.4050, L100.0100, L501.9985, L501.9520, L500.4100 ####[facility] [address] [place], [address] GAP 4 Low 5-15 [facility] Comment on above: Order Comment: Order Date: 09/16/23Order Info: 07- - CMPOrder Info: [id number] - LIPIDOrder Info: [id number] - TSHOrder Info: [id number] - T4F Performed By: #### L 506.0400, L500.4050, L100.0100, L501.9985, L501.9520, L500.4100 ####[facility] [address] [place], [address] GFR/1.73 sq M.predicted among non-blacks MDRD (S/P/Bld) [Vol rate/Area] 59 mL/min/{1.73_m2} Low >60 [facility] Comment on above: Order Comment: Order Date: 09/16/23Order Info: [id number] - CMPOrder Info: [id number] - LIPIDOrder Info: [id number] - TSHOrder Info: [id number] - T4F Result Comment: Non- GFR Calc Performed By: #### L 506.0400, L500.4050, L100.0100, L501.9985, L501.9520, L500.4100 ####[facility] [address] [place], [address] Globulin (S) [Mass/Vol] 3.3 g/dL Normal 2.2-4.2 [facility] Comment on above: Order Comment: Order Date: 09/16/23Order Info: [id number] - CMPOrder Info: [id number] - LIPIDOrder Info: [id number] - TSHOrder Info: [id number] - T4F Performed By: #### L 506.0400, L500.4050, L100.0100, L501.9985, L501.9520, L500.4100 ####[facility] [address] [place], [address] Glucose [Mass/Vol] 87 mg/dL Normal 74-106 [facility] Comment on above: Order Comment: Order Date: 09/16/23Order Info: 07-1 - CMPOrder Info: [id number] - LIPIDOrder Info: [id number] - TSHOrder Info: [id number] - T4F Performed By: #### L 506.0400, L500.4050, L100.0100, L501.9985, L501.9520, L500.4100 ####[facility] [address] [place], [address] Potassium [Moles/Vol] 4.0 mmol/L Normal 3.5-5.1 [facility] Comment on above: Order Comment: Order Date: 09/16/23Order Info: 785- - CMPOrder Info: [id number] - LIPIDOrder Info: 3 - TSHOrder Info: [id number] - T4F Performed By: #### L 506.0400, L500.4050, L100.0100, L501.9985, L501.9520, L500.4100 ####[facility] [address] [place], [address] Sodium [Moles/Vol] 139 mmol/L Normal 136-145 [facility] Comment on above: Order Comment: Order Date: 09/16/23Order Info: [id number] - CMPOrder Info: [id number] - LIPIDOrder Info: [id number] - TSHOrder Info: 7 - T4F Performed By: #### L 506.0400, L500.4050, L100.0100, L501.9985, L501.9520, L500.4100 ####[facility] [address] [place], [address] T PROT 7.1 g/dL Normal 6.4-8.2 [facility] Comment on above: Order Comment: Order Date: 09/16/23Order Info: [id number] - CMPOrder Info: [id number] - LIPIDOrder Info: 3 - TSHOrder Info: [id number] - T4F Performed By: #### L 506.0400, L500.4050, L100.0100, L501.9985, L501.9520, L500.4100 ####[facility] [address] [place], [address] Urea nitrogen [Mass/Vol] 20 mg/dL High 7-18 [facility] Comment on above: Order Comment: Order Date: 09/16/23Order Info: [id number] - CMPOrder Info: [id number] - LIPIDOrder Info: 3 - TSHOrder Info: [id number] - T4F Performed By: #### L 506.0400, L500.4050, L100.0100, L501.9985, L501.9520, L500.4100 ####[facility] [address] [place], [address] Hemoglobin A1con 01-11-2024 HbA1c (Bld) [Mass fraction] 5.6 % Normal 3.8-5.6 [facility] Comment on above: Order Comment: Order Date: 09/16/23Order Info: [id number] - A1C Result Comment: Norm al < 5.7 % Prediabetic 5.7 - 6.4 % Diabetic >or= 6.5 % Please note range changes. Performed By: #### L 506.0400, L500.4050, L100.0100, L501.9985, L501.9520, L500.4100 ####[facility] [address] [place], [address] Lipid Profileon 01-11-2024 Cholesterol [Mass/Vol] 140 mg/dL Normal 200 [facility] Comment on above: Order Comment: Order Date: 09/16/23Order Info: [id number] - CMPOrder Info: [id number] - LIPIDOrder Info: [id number] - TSHOrder Info: [id number] - T4F Result Comment: <200 mg/dL Desirable 200-240 mg/dL Borderline >240 mg/dL High Risk Performed By: #### L 506.0400, L500.4050, L100.0100, L501.9985, L501.9520, L500.4100 ####[facility] [address] [place], [place], [address] Cholesterol in HDL [Mass/Vol] 53 mg/dL Normal [facility] Comment on above: Order Comment: Order Date: 09/16/23Order Info: [id number] - CMPOrder Info: [id number] - LIPIDOrder Info: [id number] - TSHOrder Info: [id number] - T4F Result Comment: The drugs N-Acetylcysteine and Metamizole may falsely depress this assay. Reference Range HDL <40 mg/dL Low HDL Cholesterol HDL >or= 60 mg/dL High HDL Cholesterol Performed By: #### L 506.0400, L500.4050, L100.0100, L501.9985, L501.9520, L500.4100 ####[facility] [address] [place], [address] Cholesterol in LDL [Mass/Vol] 72 mg/dL Normal 0-130 [facility] Comment on above: Order Comment: Order Date: 09/16/23Order Info: [id number] - CMPOrder Info: [id number] - LIPIDOrder Info: [id number] - TSHOrder Info: 7 - T4F Performed By: #### L 506.0400, L500.4050, L100.0100, L501.9985, L501.9520, L500.4100 ####[facility] [address] [place], [address] Cholesterol in VLDL [Mass/Vol] 15 mg/dL Normal 5-40 [facility] Comment on above: Order Comment: Order Date: 09/16/23Order Info: 86-1 - CMPOrder Info: [id number] - LIPIDOrder Info: 3 - TSHOrder Info: 7 - T4F Performed By: #### L 506.0400, L500.4050, L100.0100, L501.9985, L501.9520, L500.4100 ####[facility] [address] [place], [address] Triglyceride [Mass/Vol] 74 mg/dL Normal [facility] Comment on above: Order Comment: Order Date: 09/16/23Order Info: 86-1 - CMPOrder Info: [id number] - LIPIDOrder Info: 3 - TSHOrder Info: [id number] - T4F Result Comment: The drugs N-Acetylcysteine and Metamizole may falsely depress this assay. Serum Triglycerides Reference Interval Normal <150 mg/dL Borderline high 150 - 199 mg/dL High 200 - 499 mg/dL Very High > or = 500 mg/dL Performed By: #### L 506.0400, L500.4050, L100.0100, L501.9985, L501.9520, L500.4100 ####[facility] [address] [place], [place], [address] T4 Free Directon 01-11-2024 T4 FREE DIRECT 1.01 ng/dL Normal 0.76-1.46 [facility] Comment on above: Order Comment: Order Date: 09/16/23Order Info: [id number] - CMPOrder Info: [id number] - LIPIDOrder Info: [id number] - TSHOrder Info: [id number] - T4F Performed By: #### L 506.0400, L500.4050, L100.0100, L501.9985, L501.9520, L500.4100 ####[facility] [address] [place], [place], [id number] Thyroid Stim Hormone (TSH)on 01-11-2024 TSH 3.440 uIU/mL Normal 0.358-3.740 [facility] Comment on above: Order Comment: Order Date: 09/16/23Order Info: [id number] - CMPOrder Info: [id number] - LIPIDOrder Info: [id number] - TSHOrder Info: [id number] - T4F Performed By: #### L 506.0400, L500.4050, L100.0100, L501.9985, L501.9520, L500.4100 ####[facility] [id number] [place], [place], [id number] CNOVon 11-17-2023 CNOV Office Visit (AKURFL) SILVIA NICOLE II ([id number]) 1945 Date Time Provider Department 11/17/23 1:00 PM RITA CHAIDEZ JR During your visit today, we recorded the following information about you: Pulse Blood pressure 71/minute 122/78 Rita Chaidez Jr., MD 11/17/2023 1:30 PM Signed NEW PATIENT HISTORY AND PHYSICAL EXAM PATIENT INFO: Silvia Nicole II 77 year old REFERRING PROVIDER: Data Unavailable PCP: eDlma Glover MD, MD HPI Silvia Nicole II is a 77 year old male refer for renal cyst. Has 7.4cm R lower pole bosniak 1 renal cyst. No pain. Found incidentally on ct scan. No luts. No fever. No uti. Review of Systems Constitutional: Negative. Respiratory: Negative. Cardiovascular: Negative. Gastrointestinal: Negative. Genitourinary: Negative. Skin: Negative. Neurological: Negative. Psychiatric/Behavior al: Negative. LAB: No results found for: CREAT No results found for: PSA No results found for: UGLUC, UBILI, UKET, SPGR, UHB, UPH, UPROT, UROBIL, NITRITES, UWBC, UCOLAP MEDICATIONS: esomeprazole (NEXIUM) 20 mg capsule Take 1 capsule by mouth once daily. SYNTHROID 100 mcg tablet Take 100 mcg by mouth once daily. acetaminophen (TYLENOL EXTRA STRENGTH) 500 mg tablet Take 500 mg by mouth every 8 hours as needed for pain. triamcinolone acetonide (KENALOG) 0.1 % cream Apply 1 application to affected area two times a day. cyclobenzaprine (FLEXERIL) 10 mg tablet Take 10 mg by mouth two times a day as needed for muscle spasm. rosuvastatin (CRESTOR) 10 mg tablet Take 10 mg by mouth daily at bedtime. IPRATROPIUM BROMIDE NASAL Use in the nose. HISTORIES PAST MEDICAL HISTORY Diagnosis Date Diastasis recti GERD (gastroesophageal reflux disease) silent reflux Glucose intolerance (impaired glucose tolerance) Hyperlipidemia Inguinal hernia right Seasonal allergies Subclinical hypothyroidism FAMILY HISTORY Problem Relation Age of Onset Melanoma Mother Alzheimer's Disease Mother Hyperlipidemia Mother Pancreatic Cancer Father Melanoma Maternal Grandfather SOCIAL HISTORY Social History Tobacco Use Smoking status: Former Current packs/day: 0.00 Average packs/day: 2.0 packs/day for 7.0 years (14.0 ttl pk-yrs) Types: Cigarettes Start date: 1961 Quit date: 1968 Years since quittin.7 Vaping Use Vaping status: Never Used Substance Use Topics Alcohol use: Yes Comment: 2-3 drinks per week. Drug use: Never PHYSICAL EXAMINATION BP 122/78 Pulse 71 SpO2 95% General appearance: Well appearing, alert, in no acute distress, and well-hydrated, well nourished Skin: Skin color, texture, turgor normal, no suspicious rashes or lesions Respiratory:+ effort Cardiovascular: Not examined GI: Normal abdominal exam, Abdomen soft, non-tender. No masses, organomegaly Musculoskeletal: normal ROM Neuro: No gross neurologic defecits Genitourinary: not examined ASSESSMENT: (N28.1) Renal cyst (primary encounter diagnosis) PLAN: 1 year Renal us prior Rita Chaidez Jr, MD Allergies As of Date: 11/17/2023 Noted Allergy Reaction DECONGESTANT TABLET 09/20/2023 14 - Other: See Comments Comments: Avoids due to prostate issues. NAPROSYN (NAPROXEN) 09/20/2023 1 - Mental Status Change Comments: Agitation RAGWEED POLLEN 09/20/2023 14 - Other: See Comments Date Reviewed: 11/17/2023 Reviewed by: Rita Chaidez Jr., MD - Fully Assessed Reason for Visit: Renal Cyst [1345] Primary Visit Diagnosis:Renal cyst [N28.1] Order(s):UA DIP, URINE (POC) [5302123] Order #: [id number]. #:[id number] KIDNEY/BLADDER [[id number]] Order #: [id number] FUTURE Prescriptions as of 11/17/2023 - esomeprazole (NEXIUM) 20 mg capsule Take 1 capsule by mouth once daily. - SYNTHROID 100 mcg tablet Take 100 mcg by mouth once daily. - acetaminophen (TYLENOL EXTRA STRENGTH) 500 mg tablet Take 500 mg by mouth every 8 hours as needed for pain. - triamcinolone acetonide (KENALOG) 0.1 % cream Apply 1 application to affected area two times a day. - cyclobenzaprine (FLEXERIL) 10 mg tablet Take 10 mg by mouth two times a day as needed for muscle spasm. - rosuvastatin (CRESTOR) 10 mg tablet Take 10 mg by mouth daily at bedtime. - IPRATROPIUM BROMIDE NASAL Use in the nose. Problem List As Of Date 11/17/2023 Noted Resolved Gastro-esophageal reflux disease without esopha*09/24/2023 Disposition: Return in about 1 year (around 11/16/2024). Follow-up and Disposition History for Encounter Date Provider Department Center 11/17/2023 [id number]-EVDBOSJAMES CHAIDEZ JR*MICHELLE Urol [facility] Encounter Status:Closed by RITA CHAIDEZ on 11/17/23 Normal [facility] UA DIP, URINE (POC)on 2023 BILIRUBIN UA (POCT) Negative Negative Yann [facility] CLARITY UA (POCT) Clear [facility] COLOR UA (POCT) Yellow [facility] GLUCOSE UA (POCT) Negative Negative mg/dL [facility] Hemoglobin Ql (U) Negative Negative [facility] KETONE UA (POCT) Negative Negative mg/dL [facility] LEUKOCYTES UA (POCT) Negative Negative [facility] NITRITE UA (POCT) Negative Negative [facility] PH UA (POCT) 5.5 4.5 - 8.0 [facility] Protein Ql (U) Negative Negative mg/dL [facility] SPECIFIC GRAVITY UA (POCT) 1.015 1.005 - 1.030 [facility] UROBILINOGEN UA (POCT) 0.2 Charleen l E.U./dL [facility] Location:[facility], [address] [place] [address], [address] [place] [address] POINT OF CARE [facility] CNOVon 10-06-2023 CNOV Office Visit (GENSWS) SILVIA NICOLE II ([id number]) 1945 M Date Time Provider Department 10/06/23 10:00 AM DALIA HOLGUIN During your visit today, we recorded the following information about you: Dalia Holguin APRN.CNP 10/06/2023 11:29 AM Signed FOLLOW UP VISIT - ENDOSCOPY Silvia Nicole II 1945 [id number] REFERRING PHYSICIAN: Trice Montes [address] [facility] [place] [address] Silvia Nicole II is a patient I am following for GERD and midline hernia. Dr. Montes performed upper endoscopy on 09/24/2023. The patient was found to have Impression: - Normal first portion of the duodenum and second portion of the duodenum. - Erythematous mucosa in the antrum. Biopsied. - Z-line normal but because of patient's complaint biopsies were taken, 36 cm from the incisors. Biopsied. Pathology demonstrated: FINAL DIAGNOSIS A. Stomach, antrum, biopsy: - Antral mucosa with no significant pathologic change. - No morphologic evidence of Helicobacter. B. Esophagogastric junction, biopsy: - Squamocolumnar junctional mucosa (cardia-type) with mild chronic inflammation. - No intestinal metaplasia identified. [facility] also underwent a CT scan d/t upper abd pain near his diastasis recti. There were no acute findings. Evidence of left inguinal hernia and a 7.4 cm kidney cyst. During the consult appt, [facility] had started taking prilosec, today he refers that he did that for 14 days and then switched to Nexium. He refers he still has excess phlegm in the larynx. We discussed following up with ENT. VITALS: There were no vitals taken for this visit. General: patient is alert, cooperative, pleasant and in no acute distress On examination, the abdomen is benign. ASSESSMENT/PLAN: 1. Gastroesophageal reflux disease with esophagitis without hemorrhage - ICD9: 530.81, 530.10, ICD10: K21.00 (primary diagnosis) - Continue Nexium 20mg daily for 3 mos 2. Cyst of right kidney - ICD9: 753.10, ICD10: N28.1 - CONSULT TO NEPHROLOGY- [facility] may call back in to get referral faxed to someone local. The operative findings and pathology report were reviewed with the patient, and the patient has had the opportunity to ask questions and have questions answered. If the patient notes any problems or changes in bowel function, the patient should contact me immediately. Otherwise I recommend follow up endoscopy as symptoms dictate. HM updated and recall letter generated. Discussed treatment plan and patient voices understanding. Patient's questions answered appropriately. Return to the office as needed Dalia Holguin APRN.SECURITY ASSESSOR Referring Provider: TRICE MONTES [[id number]] Allergies As of Date: 10/06/2023 Noted Allergy Reaction DECONGESTANT TABLET 09/20/2023 14 - Other: See Comments Comments: Avoids due to prostate issues. NAPROSYN (NAPROXEN) 09/20/2023 1 - Mental Status Change Comments: Agitation RAGWEED POLLEN 09/20/2023 14 - Other: See Comments Date Reviewed: 10/06/2023 Reviewed by: Dalia Holguin APRN.SECURITY ASSESSOR - Fully Assessed Reason for Visit: Follow Up [171] Cmt: Review EGD results, review CT scan results. Primary Visit Diagnosis:Gastroesop hageal reflux disease with esophagitis without hemorrhage [K21.00] Other Visit Diagnosis:Cyst of right kidney [N28.1] Order(s):CONSULT TO NEPHROLOGY [9024] Order #: [id number]: 1 FUTURE esomeprazole (NEXIUM) 20 mg capsuleTake 1 capsule by mouth once daily.Disp: 30 capsuleRfl: 2 Prescriptions as of 10/06/2023 - esomeprazole (NEXIUM) 20 mg capsule Take 1 capsule by mouth once daily. - SYNTHROID 100 mcg tablet Take 100 mcg by mouth once daily. - acetaminophen (TYLENOL EXTRA STRENGTH) 500 mg tablet Take 500 mg by mouth every 8 hours as needed for pain. - triamcinolone acetonide (KENALOG) 0.1 % cream Apply 1 application to affected area two times a day. - cyclobenzaprine (FLEXERIL) 10 mg tablet Take 10 mg by mouth two times a day as needed for muscle spasm. - rosuvastatin (CRESTOR) 10 mg tablet Take 10 mg by mouth daily at bedtime. - IPRATROPIUM BROMIDE NASAL Use in the nose. Problem List As Of Date 10/06/2023 Noted Resolved Gastro-esophageal reflux disease without esopha*09/24/2023 Prescriptions ordered this encounter Disp Refills Start End ESOMEPRAZOLE MAGNESIUM 20 MG CAPSULE* 30 c* 2 10/06/2023 01/04/2024 Route: ORAL Sig: Take 1 capsule by mouth once daily. Medications Discontinued During This Encounter Prescriptions - omeprazole (PRILOSEC) 40 mg capsule (Discontinued) Take 40 mg by mouth once daily. Letter Text Encounter Status:Closed by DALIA HOLGUIN on 10/06/[address] [place] [address] ABD/PEL W IVCONon 024 CT ABD/PEL W IVCON * * *Final Report* * * DATE OF EXAM: Sep 28 2023 2:39PM [facility] 0530 - CT ABD/PEL W IVCON / PROCEDURE REASON: Pain of upper abdomen * * * * Physician Interpretation * * * * EXAMINATION: CT ABDOMEN AND PELVIS WITH IV CONTRAST CLINICAL HISTORY: Mid and upper abdominal pain of 2 weeks' duration TECHNIQUE: CT of the abdomen and pelvis was performed using standard technique, scanning from just above the dome of the diaphragm to the upper thighs. Contrast: IV: 125 ml of Omnipaque 300 Oral: 10 ml of Omni 240 10-25ml diluted with water CT Radiation dose: Integrated Dose-length product (DLP) for this visit = 684 mGy*cm. CT Dose Reduction Employed: Automated exposure control(AEC) and iterative recon COMPARISON: None FINDINGS: LOWER CHEST: There is marked elevation of the left hemidiaphragm, causing elevation of the stomach and splenic flexure into the left hemithorax. HEPATOBILIARY: Scattered small low-density lesions throughout the liver are too small to accurately characterize. Otherwise, the liver and gallbladder are normal in appearance. No biliary ductal dilatation. SPLEEN, PANCREAS, ADRENAL GLANDS: Within normal limits. KIDNEYS, URETERS, BLADDER: Symmetric parenchymal enhancement with no obstructing calculus or hydronephrosis. A 7.4 cm exophytic cyst extends off of the tip of the right lower pole. Ureters and bladder within normal limits. PROSTATE, SEMINAL VESICLES: No CT finding of pathology. BOWEL: No evidence of obstruction or secondary signs of inflammation. PERITONEAL/EXTRAPERI TONEAL SPACE: No free air or free fluid. A 1.5 cm ellipsoid fat nodule with a thin peripheral rim within the anterior left pelvis (series 5, axial 143) is indeterminate and may reflect a lymph node or a torsed epiploic appendage. No surrounding fat stranding or secondary signs of inflammation seen. LYMPH NODES: No adenopathy. VASCULAR: There is mild 2.3 cm focal ectasia of the infrarenal aorta. ABDOMINAL WALL: Small fat-containing left inguinal hernia. MUSCULOSKELETAL: No acute osseous abnormality. IMPRESSION: 1. No acute finding within the abdomen or pelvis. 2. Incidental note is made of marked elevation of the left hemidiaphragm. Cardiopulmonary Specialist: FLORA Transcribe Date/Time: Sep 30 2023 12:01P Dictated by : BRINA LOONEY MD This examination was interpreted and the report reviewed and electronically signed by: BRINA LOONEY MD on Sep 30 2023 12:11PM EST [id number] CN [facility] [place] [id number] 09-24-2023 [id number] HNO ID: [id number] Author: BRENDA LANDA RN Service: ? Author Type: Registered Nurse Type: [id number] Filed: 09/24/2023 13:48 Note Text: The patient received a copy of EGD discharge instructions that contain information for how to contact the physician who performed the procedure and when to seek medical care. Brenad Landa RN [facility] EGD Study observation Narrat iveon 09-24-2023 [facility] Gastrointestinal Endoscopy Patient Name: Silvia Nicole Procedure Date: 09/24/2023 1:02 PM Date of : 1945 Admit Type: Outpatient Age: 77 Gender: Male Note Status: Finalized Procedure: Upper GI endoscopy Indications: Esophageal reflux Providers: Trice Montes MD Patient Profile: Refer to note in patient chart for documentation of history and physical. Referring Physician: Dalia Holguin (Referring MD) Medicines: Midazolam 5 mg IV, Fentanyl 100 micrograms IV, Benzocaine spray Complications: No immediate complications. Requesting Provider: Procedure: Pre-Anesthesia Assessment: - Prior to the procedure, a History and Physical was performed, and patient medications and allergies were reviewed. The patient is competent. The risks and benefits of the procedure and the sedation options and risks were discussed with the patient. All questions were answered and informed consent was obtained. Patient identification and proposed procedure were verified by the physician in the pre-procedure area. Mental Status Examination: alert and oriented. Airway Examination: normal oropharyngeal airway and neck mobility. Respiratory Examination: clear to auscultation. CV Examination: normal. Prophylactic Antibiotics: The patient does not require prophylactic antibiotics. Prior Anticoagulants: The patient has taken no anticoagulant or antiplatelet agents. ASA Grade Assessment: II - A patient with mild systemic disease. After reviewing the risks and benefits, the patient was deemed in satisfactory condition to undergo the procedure. The anesthesia plan was to use moderate sedation / analgesia (conscious sedation). Immediately prior to administration of medications, the patient was re-assessed for adequacy to receive sedatives. The heart rate, respiratory rate, oxygen saturations, blood pressure, adequacy of pulmonary ventilation, and response to care were monitored throughout the procedure. The physical status of the patient was re-assessed after the procedure. After obtaining informed consent, the endoscope was passed under direct vision. Throughout the procedure, the patient's blood pressure, pulse, and oxygen saturations were monitored continuously. The Endoscope was introduced through the mouth, and advanced to the second part of duodenum. The upper GI endoscopy was accomplished without difficulty. The patient tolerated the procedure well. Moderate Sedation: The administration of moderate sedation was initiated at 13:16 PM. Moderate (conscious) sedation was personally administered by the endoscopist. The following parameters were monitored: oxygen saturation, heart rate, blood pressure, respiratory rate, EKG, adequacy of pulmonary ventilation, and response to care. Total physician intraservice time was 10 minutes. Findings: The first portion of the duodenum and second portion of the duodenum were normal. Localized mildly erythematous mucosa without bleeding was found in the gastric antrum. Biopsies were taken with a cold forceps for histology. Verification of patient identification for the specimen was done by the nurse. Estimated blood loss was minimal. The Z-line was normal but because of patient's complaint biopsies were taken and was found 38 cm from the incisors. Biopsies were taken with a cold forceps for histology. Verification of patient identification for the specimen was done by the nurse. Estimated blood loss was minimal. A small to medium sized hiatal hernia was present. Impression: - Normal first portion of the duodenum and second portion of the duodenum. - Erythematous mucosa in the antrum. Biopsied. - Z-line normal but because of patient's complaint biopsies were taken, 36 cm from the incisors. Biopsied. Recommen (more content not included)... PROVATION [facility] Radiology Study observation (narrative) [facility] HISTORY PHYSICALon HISTORY PHYSICAL HNO ID: [id number] Author: TRICE MONTES MD Service: General Surgery Author Type: Physician Type: H&P Filed: 09/24/2023 11:57 Note Text: HISTORY AND PHYSICAL Silvia Nicole II : 1945 REFERRING PHYSICIAN: No referring provider defined for this encounter. CHIEF COMPLAINT: Patient presents with: Consult: Consultation for GERD and midline hernia. HPI: Silvia is a 77 year old male referred for endoscopy. Silvia notes dull upper abd pain . He denies any change in bowel habits, weight changes, blood in stools, black tarry stools or abdominal pain. [facility] notes upper GI complaints. 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 He refers he notices a cough that is worse after laying down and he is always clearing his throat. He states 40 years ago he developed a raspy voice and has had it since- refers he used to use Maalox frequently In 2009 he noticed a bulge when lifting legs in the supine position or doing a crunch that has increasingly gotten larger- not painful C/O a dull ach near diastasis recti area that has gotten worse over the last 2 weeks. [facility] refers he has been doing a lot of heavy lifting over those 2 weeks with home renovations. [facility] just recently started taking omeprazole for the 1st time and noted minimal relief. States concern for possible duodenal ulcer d/t current stress of home lisbeth States he gets nausea but hasn't vomited in over 20 years Silvia has undergone prior endoscopy. Not due for repeat colonoscopy for 3 more years AND having no issues. [facility] has never had EGD. CURRENT MEDICATIONS Current Outpatient Medications Medication Sig SYNTHROID 100 mcg tablet Take 100 mcg by mouth once daily. acetaminophen (TYLENOL EXTRA STRENGTH) 500 mg tablet Take 500 mg by mouth every 8 hours as needed for pain. triamcinolone acetonide (KENALOG) 0.1 % cream Apply 1 application to affected area two times a day. cyclobenzaprine (FLEXERIL) 10 mg tablet Take 10 mg by mouth two times a day as needed for muscle spasm. rosuvastatin (CRESTOR) 10 mg tablet Take 10 mg by mouth daily at bedtime. IPRATROPIUM BROMIDE NASAL Use in the nose. omeprazole (PRILOSEC) 40 mg capsule Take 40 mg by mouth once daily. iv contrast (will be provided with radiology test) CT ABD/PEL -Inject, intravenously, once for 1 dose.No IV access, insert saline lock prior to the beginning of sedation, infusion, injection of imaging exam. Discontinue saline lock post exam. If Pt. has a central line or IVAD, may access for administration according to line specific nursing protocol. Once exam is complete flush line and de-access according to line specific nursing protocol in the CT contrast administration guidelines link. enteric contrast (will be provided with radiology test) For CT ABD/PEL W IVCON Routine order Administer, As Directed One Time Only, via Oral, Rectal, both Oral and Rectal, Enteric Tube, Stoma or Indwelling Catheter, Enteric Contrast as designated per enteric contrast guidelines fluticasone (FLONASE) 50 mcg/actuation nasal spray Use 1 Atkinson in each nostril once daily. No current facility-administere d medications for this visit. ALLERGIES: Decongestant Tablet, Naprosyn [Naproxen], and Ragweed Pollen PAST MEDICAL HISTORY PAST MEDICAL HISTORY Diagnosis Date Diastasis recti GERD (gastroesophageal reflux disease) silent reflux Glucose intolerance (impaired glucose tolerance) Hyperlipidemia Inguinal hernia right Seasonal allergies Subclinical hypothyroidism PAST SURGICAL HISTORY PAST SURGICAL HISTORY Procedure Laterality Date ARTHRODESIS ANTERIOR SPINAL DFRM 2-3 VRT SGM 2005 L5-S1, anterior and posterior ARTHROSCOPY KNEE DIAGNOSTIC W/WO SYNOVIAL BX SPX Left 1991 IANDD PERIANAL ABSCESS 1982 LEFT HEART CATH,PERCUTANEOUS Dr. Mary REPAIR ING HERNIA,5+Y/O,REDUCIB L Right 1967 FAMILY HISTORY FAMILY HISTORY Problem Relation Age of Onset Melanoma Mother Alzheimer's Disease Mother Hyperlipidemia Mother Pancreatic Cancer Father Melanoma Maternal Grandfather SOCIAL HISTORY Social History Tobacco Use Smoking status: Former Packs/day: 2.00 Years: 7.00 Additional pack years: 0.00 Total pack years: 14.00 Types: Cigarettes Quit date: 1968 Years since quittin.6 Vaping Use Vaping Use: Never used Substance Use Topics Alcohol use: Yes Comment: 2-3 drinks per week. Drug use: Never REVIEW OF SYMPTOMS: The review of systems data was entered by the nurse and reviewed by dc Nursing Notes: Tangela Nava RN 09/21/2023 12:20 PM Signed REVIEW OF SYSTEMS: General: The patient denies fatigue, denies weight loss, denies weight gain, denies feeling hot, and denies feelings of cold. Eyes: The patient denies glaucoma, denies eye injury/surgery, wears glasses or contacts. Ear/Nose/Throat: The patient NOTES allergies, NOTES hayfever, NOTES ear infections, and NOTES bloody noses. Cardiovascular: The patient NOTES c (more content not included)... [facility] [place] NURSING PROGon 09-24-2023 NURSING PROG HNO ID: [id number] Author: BRENDA LANDA RN Service: ? Author Type: Registered Nurse Type: Nursing Progress Note Filed: 09/24/2023 13:56 Note Text: Arrived in phase II via cart. Left lateral position. Sedated, but responds to verbal stimuli. Color normal; skin warm and dry. Respirations wnl and unlabored. Abdomen soft and with + bowel sounds in quads X 4. Patient resting comfortably. Family at bedside. Brenda Landa RN [facility] [place] SURGICAL PATHOLOGYon 024 CASE REPORT [facility] [place] Comment on above: Order Comment: Jordan sam Type: TISSUE SPECIMENOrdering Facility: [facility] Address: [address] [place] [address] Result Comment: Surg ica Pathology Report Case: [id number] Authorizing Provider: Trice Montes MD Collected: 09/24/2023 01:29 PM Ordering Location: Ambulatory Surgery Received: 09/24/2023 03:09 PM Pathologist: Derek Redding MD Specimens: A) - Stomach, Antrum, Biopsy, Antral for H/H B) - Esophagogastric Junction, Biopsy, GE Junction bx Performed By: #### S ####[facility] LABCLIA [id number] [address] [place] FINAL DIAGNOSIS [facility] [place] Comment on above: Order Comment: Speci cecy Type: TISSUE SPECIMENOrdering Facility: [facility] Address: [address] [place] [address] Result Comment: Mando morin, antrum, biopsy: - Antral mucosa with no significant pathologic change. - No morphologic evidence of Helicobacter. B. Esophagogastric junction, biopsy: - Squamocolumnar junctional mucosa (cardia-type) with mild chronic inflammation. - No intestinal metaplasia identified. Performed By: #### S ####[facility] LABCLIA [id number] [place] [address] [place] FINAL PERFORMING LAB Normal [facility] Comment on above: Order Comment: Speci men Type: TISSUE SPECIMENOrdering Facility: [facility] Address: [address] [place] [address] Result Comment: Diag nostic interpretation performed at [place] [address] CLIA# [id number] [employer] Solution Architect: Josh Kinsey M.D. Performed By: #### S ####[facility] LABCLIA [id number] [address] [place] GROSS DESCRIPTION Normal [facility] Comment on above: Order Comment: Speci men Type: TISSUE SPECIMENOrdering Facility: [facility] Address: [address] [place] [address] Result Comment: A. S tomach, Antrum, Biopsy Received in formalin is one pieces of valdivia, soft tissue measuring 0.3 x 0.3 x 0.2 cm. Totally submitted in one cassette. B. Esophagogastric Junction, Biopsy Received in formalin are multiple pieces of valdivia, soft tissue aggregating to 0.4 x 0.2 x 0.2 cm. Totally submitted in one cassette. Gross examination performed at [address] September 25, 2023 1:50 AM Performed By: #### S ####[facility] LABCLIA [id number] [place] [address] [place] Upper GI endoscopyon [facility] Upper GI endoscopy [facility] Gastrointestinal Endoscopy Patient Name: Silvia Nicole Procedure Date: 09/24/2023 1:02 PM Date of : 1945 Admit Type: Outpatient Age: 77 Gender: Male Note Status: Finalized Procedure: Upper GI endoscopy Indications: Esophageal reflux Providers: Trice Montes MD Patient Profile: Refer to note in patient chart for documentation of history and physical. Referring Physician: Dalia Holguin (Referring MD) Medicines: Midazolam 5 mg IV, Fentanyl 100 micrograms IV, Benzocaine spray Complications: No immediate complications. Requesting Provider: Procedure: Pre-Anesthesia Assessment: - Prior to the procedure, a History and Physical was performed, and patient medications and allergies were reviewed. The patient is competent. The risks and benefits of the procedure and the sedation options and risks were discussed with the patient. All questions were answered and informed consent was obtained. Patient identification and proposed procedure were verified by the physician in the pre-procedure area. Mental Status Examination: alert and oriented. Airway Examination: normal oropharyngeal airway and neck mobility. Respiratory Examination: clear to auscultation. CV Examination: normal. Prophylactic Antibiotics: The patient does not require prophylactic antibiotics. Prior Anticoagulants: The patient has taken no anticoagulant or antiplatelet agents. ASA Grade Assessment: II - A patient with mild systemic disease. After reviewing the risks and benefits, the patient was deemed in satisfactory condition to undergo the procedure. The anesthesia plan was to use moderate sedation / analgesia (conscious sedation). Immediately prior to administration of medications, the patient was re-assessed for adequacy to receive sedatives. The heart rate, respiratory rate, oxygen saturations, blood pressure, adequacy of pulmonary ventilation, and response to care were monitored throughout the procedure. The physical status of the patient was re-assessed after the procedure. After obtaining informed consent, the endoscope was passed under direct vision. Throughout the procedure, the patient's blood pressure, pulse, and oxygen saturations were monitored continuously. The Endoscope was introduced through the mouth, and advanced to the second part of duodenum. The upper GI endoscopy was accomplished without difficulty. The patient tolerated the procedure well. Moderate Sedation: The administration of moderate sedation was initiated at 13:16 PM. Moderate (conscious) sedation was personally administered by the endoscopist. The following parameters were monitored: oxygen saturation, heart rate, blood pressure, respiratory rate, EKG, adequacy of pulmonary ventilation, and response to care. Total physician intraservice time was 10 minutes. Findings: The first portion of the duodenum and second portion of the duodenum were normal. Localized mildly erythematous mucosa without bleeding was found in the gastric antrum. Biopsies were taken with a cold forceps for histology. Verification of patient identification for the specimen was done by the nurse. Estimated blood loss was minimal. The Z-line was normal but because of patient's complaint biopsies were taken and was found 38 cm from the incisors. Biopsies were taken with a cold forceps for histology. Verification of patient identification for the specimen was done by the nurse. Estimated blood loss was minimal. A small to medium sized hiatal hernia was present. Impression: - Normal first portion of the duodenum and second portion of the duodenum. - Erythematous mucosa in the antrum. Biopsied. - Z-line normal but because of patient's complaint biopsies were taken, 36 cm from the incisors. Biopsied. Recommendation: - Discharge patient to home (ambulatory). - Resume previous diet. - Continue present medications. - Await pathology results. - Return to referring physician at the next available appointment. Procedure Code(s): --- Professional --- 46626, Esophagogastroduoden oscopy, flexible, transoral; with biopsy, single or multiple 80399, 59, Moderate sedation services provided by the same physician or other qualified health client care specialist performing the diagnostic or therapeutic service that the sedation supports, requiring the presence of an independent trained observer to assist in the monitoring of the patient's level of consciousness and physiological status; initial 15 minutes of intraservice time, patient age 5 years or older Diagnosis Code(s): --- Professional --- K21.9, Gastro-esophageal reflux disease without esophagitis K31.89, Other diseases of stomach and duodenum CPT copyright 2020 [employer] [employer]. All rights reserved. The codes documented in this report are preliminary and upon overhead distribution engineer review may be revised to meet current compliance requir (more content not included)... Normal [place] CNOVon 09-21-2023 CNOV Office Visit (GENSWS) SILVIA NICOLE II ([id number]) 1945 M Date Time Provider Department 09/21/23 11:00 AM DALIA HOLGUIN GENSWS During your visit today, we recorded the following information about you: Temperature Pulse Blood pressure Weight 97.8 degrees 94/minute 112/68 82.6 kg Height 1.753 m Dalia Holguin APRN.CNP 09/24/2023 8:21 AM Addendum HISTORY AND PHYSICAL Silvia Nicole II : 1945 REFERRING PHYSICIAN: No referring provider defined for this encounter. CHIEF COMPLAINT: Patient presents with: Consult: Consultation for GERD and midline hernia. HPI: Silvia is a 77 year old male referred for endoscopy. Silvia notes dull upper abd pain . He denies any change in bowel habits, weight changes, blood in stools, black tarry stools or abdominal pain. [facility] notes upper GI complaints. 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 He refers he notices a cough that is worse after laying down and he is always clearing his throat. He states 40 years ago he developed a raspy voice and has had it since- refers he used to use Maalox frequently In 2009 he noticed a bulge when lifting legs in the supine position or doing a crunch that has increasingly gotten larger- not painful C/O a dull ach near diastasis recti area that has gotten worse over the last 2 weeks. [facility] refers he has been doing a lot of heavy lifting over those 2 weeks with home renovations. [facility] just recently started taking omeprazole for the 1st time and noted minimal relief. States concern for possible duodenal ulcer d/t current stress of home lisbeth States he gets nausea but hasn't vomited in over 20 years Silvia has undergone prior endoscopy. Not due for repeat colonoscopy for 3 more years AND having no issues. [facility] has never had EGD. Current Outpatient Medications Medication Sig SYNTHROID 100 mcg tablet Take 100 mcg by mouth once daily. acetaminophen (TYLENOL EXTRA STRENGTH) 500 mg tablet Take 500 mg by mouth every 8 hours as needed for pain. triamcinolone acetonide (KENALOG) 0.1 % cream Apply 1 application to affected area two times a day. cyclobenzaprine (FLEXERIL) 10 mg tablet Take 10 mg by mouth two times a day as needed for muscle spasm. rosuvastatin (CRESTOR) 10 mg tablet Take 10 mg by mouth daily at bedtime. IPRATROPIUM BROMIDE NASAL Use in the nose. omeprazole (PRILOSEC) 40 mg capsule Take 40 mg by mouth once daily. iv contrast (will be provided with radiology test) CT ABD/PEL -Inject, intravenously, once for 1 dose.No IV access, insert saline lock prior to the beginning of sedation, infusion, injection of imaging exam. Discontinue saline lock post exam. If Pt. has a central line or IVAD, may access for administration according to line specific nursing protocol. Once exam is complete flush line and de-access according to line specific nursing protocol in the CT contrast administration guidelines link. enteric contrast (will be provided with radiology test) For CT ABD/PEL W IVCON Routine order Administer, As Directed One Time Only, via Oral, Rectal, both Oral and Rectal, Enteric Tube, Stoma or Indwelling Catheter, Enteric Contrast as designated per enteric contrast guidelines fluticasone (FLONASE) 50 mcg/actuation nasal spray Use 1 Atkinson in each nostril once daily. No current facility-administere d medications for this visit. ALLERGIES: Decongestant Tablet, Naprosyn [Naproxen], and Ragweed Pollen PAST MEDICAL HISTORY Diagnosis Date Diastasis recti GERD (gastroesophageal reflux disease) silent reflux Glucose intolerance (impaired glucose tolerance) Hyperlipidemia Inguinal hernia right Seasonal allergies Subclinical hypothyroidism PAST SURGICAL HISTORY Procedure Laterality Date ARTHRODESIS ANTERIOR SPINAL DFRM 2-3 VRT SGM 2005 L5-S1, anterior and posterior ARTHROSCOPY KNEE DIAGNOSTIC W/WO SYNOVIAL BX SPX Left 1991 IANDD PERIANAL ABSCESS 1982 LEFT HEART CATH,PERCUTANEOUS Dr. Mary REPAIR ING HERNIA,5+Y/O,REDUCIB L Right 1967 FAMILY HISTORY Problem Relation Age of Onset Melanoma Mother Alzheimer's Disease Mother Hyperlipidemia Mother Pancreatic Cancer Father Melanoma Maternal Grandfather Social History Tobacco Use Smoking status: Former Packs/day: 2.00 Years: 7.00 Additional pack years: 0.00 Total pack years: 14.00 Types: Cigarettes Quit date: 1968 Years since quittin.6 Vaping Use Vaping Use: Never used Substance Use Topics Alcohol use: Yes Comment: 2-3 drinks per week. Drug use: Never REVIEW OF SYMPTOMS: The review of systems data was entered by the nurse and reviewed by dc Nursing Notes: Tangela Nava RN 09/21/2023 12:20 PM Signed REVIEW OF SYSTEMS: General: The patient denies fatigue, denies weight loss, denies weight gain, denies feeling hot, and denies feelings of cold. Eyes: The patient denies glaucoma, de (more content not included)... [facility] SILVIA NICOLE II ([id number]) 1945 M Date Time Provider Department 09/21/23 DALIA HOLGUIN GENS During your visit today, we recorded the following information about you: Dalia Holguin APRN.CNP 09/21/2023 12:10 PM Signed Can we please request recent lab work done through Dr. Goldsmith office? Specifically looking for a CMP/BMP with creat AND GFR prior to CT with contrast. Thanks, Dalia Holguin APRN.Tangela Lopez, YOGI 09/23/2023 11:34 AM Signed View External Labs - CBC, CMP, TSH, T4, Lipid, Liver from [facility] [ID [id number]] Allergies As of Date: 09/21/2023 Noted Allergy Reaction DECONGESTANT TABLET 09/20/2023 14 - Other: See Comments Comments: Avoids due to prostate issues. NAPROSYN (NAPROXEN) 09/20/2023 1 - Mental Status Change Comments: Agitation RAGWEED POLLEN 09/20/2023 14 - Other: See Comments Date Reviewed: 09/21/2023 Reviewed by: Dalia Holguin APRN.CNP - Fully Assessed Prescriptions as of 09/24/2023 - SYNTHROID 100 mcg tablet Take 100 mcg by mouth once daily. - acetaminophen (TYLENOL EXTRA STRENGTH) 500 mg tablet Take 500 mg by mouth every 8 hours as needed for pain. - triamcinolone acetonide (KENALOG) 0.1 % cream Apply 1 application to affected area two times a day. - cyclobenzaprine (FLEXERIL) 10 mg tablet Take 10 mg by mouth two times a day as needed for muscle spasm. - rosuvastatin (CRESTOR) 10 mg tablet Take 10 mg by mouth daily at bedtime. - IPRATROPIUM BROMIDE NASAL Use in the nose. - omeprazole (PRILOSEC) 40 mg capsule Take 40 mg by mouth once daily. Problem List As Of Date: 09/21/2023 (None) Encounter Status:Closed by DALIA HOLGUIN on 09/24/23 [place] Absolute lymphocyte countOrd ered By: Delma Glover on 03-16-2023 Lymphocytes Auto (Unsp spec) [#/Vol] 2.78 10*3/uL 0.83-4.51 [facility] Automated lymphocyte count a s percentage of total leukocytesOrdered By: Delma Glover on 03-16-2023 Lymphocytes/100 WBC Auto (Unsp spec) 37.7 % 19-41 [facility] Basophil percentageOrdered B y: Delma Glover on 03-16-2023 Basophils/100 WBC (Bld) 0.7 % 0-1 [facility] Bilirubin [Mass/Vol] 0.40 mg/dL 0.20-1.00 [facility] Comment on above: For patients on eltr ombopag therapy, use of Dimension [place] TBIL is not recommended. Chloride [Moles/Vol] 110 mmol/L 98-107 [facility] Cholesterol [Mass/Vol] 133 mg/dL <200 [facility] Comment on above: <200 mg/dL Desirable 200-240 mg/dL Borderline >240 mg/dL High Risk Eosinophils/100 WBC (Bld) 1.4 % 0-5 [facility] Glucose [Mass/Vol] 116 mg/dL 74-106 [facility] Comment on above: Fasting Glucose resu lt from 100 to 125 mg/dL suggests IMPAIRED HOMEOSTASIS per A.D.A. criteria. Hemoglobin (Bld) [Mass/Vol] 13.4 g/dL 13.0-16.5 [facility] Monocytes/100 WBC (Bld) 7.9 % 0-10 [facility] Neutrophils (Bld) [#/Vol] 3.9 10*3/uL 2.0-7.7 [facility] Neutrophils/100 WBC (Bld) 52.2 % 47-70 [facility] Potassium [Moles/Vol] 4.1 mmol/L 3.5-5.1 [facility] Protein [Mass/Vol] 6.9 g/dL 6.4-8.2 [facility] Sodium [Moles/Vol] 137 mmol/L 136-145 [facility] Triglyceride [Mass/Vol] 82 mg/dL <199 [facility] Comment on above: The drugs N-Acetylcy steine and Metamizole may falsely depress this assay.Serum Triglycerides Reference Interval Normal <150 mg/dL Borderline high 150 - 199 mg/dL High 200 - 499 mg/dL Very High > or = 500 mg/dL WBC (Bld) [#/Vol] 7.4 10*3/uL 4.4-11.0 [facility] Determination of erythrocyte mean corpuscular volume (MCV)Ordered By: Delma Glover on 03-16-2023 MCV (RBC) [Entitic vol] 100.5 fL 80-94 [facility] Erythrocyte distribution wid th ratioOrdered By: Delma Glover on 03-16-2023 Erythrocyte distribution width (RBC) [Ratio] 11.9 % 11.6-14.6 [facility] Erythrocyte distribution wid th standard deviationOrdered By: Delma Glover on 03-16-2023 Erythrocyte distribution width (RBC) [Entitic vol] 44.2 fL 35.1-43.9 [facility] Hematocrit Auto (Bld) [Volum e fraction]Ordered By: Delma Glover on 03-16-2023 Hematocrit (Bld) [Volume fraction] 42.2 % 40-54 [facility] High density lipoprotein (HD L) measurementOrdered By: Delma Glover on 03-16-2023 Cholesterol in HDL (Body fld) [Mass/Vol] 47 mg/dL >40 [facility] Comment on above: The drugs N-Acetylcy steine and Metamizole may falsely depress this assay. Reference Range HDL <40 mg/dL Low HDL Cholesterol HDL >or= 60 mg/dL High HDL Cholesterol Immature granulocytes/100 WB C Auto (Bld)Ordered By: Delma Glover on 03-16-2023 Immature granulocytes/100 WBC (Bld) 0.100 % 0.0-0.9 [facility] Comment on above: IG% - Immature Granu locytes (promyelocytes, myelocytes and metamyelocytes) > 1% indicates that a LEFT SHIFT is Present. Laboratory - Chemistry and C hemistry - challengeOrdered By: Delma Glover on 03-16-2023 Albumin/Globulin [Mass ratio] 1.1 {ratio} 0.9-2.4 [facility] ALP [Catalytic activity/Vol] 73 U/L 45-117 [facility] ALT [Catalytic activity/Vol] 19 U/L 16-61 [facility] CO2 [Moles/Vol] 23.0 mmol/L 21.0-32.0 [facility] Globulin (S) [Mass/Vol] 3.3 g/dL 2.2-4.2 [facility] Urea nitrogen/Creatinine [Mass ratio] 12.9 mg/mg 10-20 [facility] Laboratory - Hematology and Cell countsOrdered By: Delma Glover on 03-16-2023 MCH (RBC) [Entitic mass] 31.9 pg 27.0-32.0 [facility] MCHC (RBC) [Mass/Vol] 31.8 g/dL 32-36 [facility] Nucleated RBC/100 WBC (Bld) [Ratio] 0 % 0-5 [facility] Platelets (Bld) [#/Vol] 155 10*3/uL 150-450 [facility] Low density lipoprotein (LDL ) cholesterol measurementOrdered By: Delma Glover on 03-16-2023 Cholesterol in LDL (Body fld) [Moles/Vol] 70 mg/dL 0-130 [facility] No Panel InformationOrdered By: Delma Glover on 03-16-2023 Estimated GFR (MDRD) Amer 73 mL/min >60 [facility] Comment on above: GFR Calc Estimated GFR (MDRD) Non-Af Amer 60 mL/min >60 [facility] Comment on above: Non- GFR Calc Platelet mean volume Sushant-Ec ker (Bld) [Entitic vol]Ordered By: Delma Glover on 03-16-2023 Platelet mean volume (Bld) [Entitic vol] 11.8 fL 6.2-12.0 [facility] RBC Auto (Bld) [#/Vol]Ordere d By: Delma Glover on 03-16-2023 RBC (Bld) [#/Vol] 4.20 10*6/uL 4.6-6.2 [facility] Serum or plasma calcium linda urement (mass/volume)Ordered By: Delma Glover on 03-16-2023 Calcium [Mass/Vol] 8.8 mg/dL 8.5-10.1 [facility] Serum or plasma creatinine m easurement (mass/volume)Ordered By: Delma Glover on 03-16-2023 Creatinine [Mass/Vol] 1.24 mg/dL 0.70-1.30 [facility] Comment on above: The validity of the calculated GFR & GFRAA in patients over 70 years has not been determined. Clinical correlation is essential. Serum or plasma thyroid stim ulating hormone (TSH) measurement (units/volume)Ordered By: Delma Glover on 03-16-2023 TSH Qn 0.44 uIU/mL 0.358-3.74 [facility] Serum or plasma urea nitroge n measurement (mass/volume)Ordered By: Delma Glover on 03-16-2023 Urea nitrogen [Mass/Vol] 16 mg/dL 7-18 [facility] Thin prep Papanicolaou smear with manual screeningOrdered By: Delma Glover on 03-16-2023 Thin prep Papanicolaou smear with manual screening 3.6 g/dL 3.2-5.0 [facility] Thin prep Papanicolaou smear with manual screening 24 U/L 15-37 [facility] Thin prep Papanicolaou smear with manual screening 4 5-15 [facility] Thin prep Papanicolaou smear with manual screening 1.23 ng/dL 0.76-1.46 [facility] Very low density lipoprotein (VLDL) cholesterol measurementOrdered By: Delma Glover on 03-16-2023 Cholesterol in VLDL Calc [Moles/Vol] 16 mg/dL 5-40 [facility] Whole blood hemoglobin A1c/t otal hemoglobin ratio (mass fraction)Ordered By: Delma Glover on 03-16-2023 HbA1c (Bld) [Mass fraction] 5.6 % 3.8-5.6 [facility] Comment on above: Normal < 5.7 % Predi abetic 5.7 - 6.4 % Diabetic >or= 6.5 % Please note range changes. Screening prostate specific antigen (PSA) measurementOrdered By: Delma Glover on 03-09-2023 Prostate specific Ag IA [Mass/Vol] 1.36 ng/mL 0.00-4.00 [facility] Comment on above: This test was perfor med using the TPSA assay method for the[employer] chemistry system. Values obtained with differentassay methods cannot be used interchangably.When changing PSA assays in the course of monitoring apatient, additional sequential testing should be carriedout to confirm baseline values. Absolute lymphocyte countOrd ered By: Delma Glover on 09-17-2022 Lymphocytes Auto (Unsp spec) [#/Vol] 3.33 10*3/uL 0.83-4.51 [facility] Basophil percentageOrdered B y: Delma Combsjhon on 09-17-2022 Basophils/100 WBC (Bld) 0.4 % 0-1 [facility] Bilirubin [Mass/Vol] 0.70 mg/dL 0.20-1.00 [facility] Comment on above: For patients on eltr ombopag therapy, use of Dimension [place] TBIL is not recommended. Chloride [Moles/Vol] 106 mmol/L 98-107 [facility] Cholesterol [Mass/Vol] 142 mg/dL <200 [facility] Comment on above: <200 mg/dL Desirable 200-240 mg/dL Borderline >240 mg/dL High Risk Eosinophils/100 WBC (Bld) 0.8 % 0-5 [facility] Glucose [Mass/Vol] 101 mg/dL 74-106 [facility] Comment on above: Fasting Glucose resu lt from 100 to 125 mg/dL suggests IMPAIRED HOMEOSTASIS per A.D.A. criteria. Neutrophils (Bld) [#/Vol] 4.3 10*3/uL 2.0-7.7 [facility] Neutrophils/100 WBC (Bld) 51.8 % 47-70 [facility] Potassium [Moles/Vol] 4.1 mmol/L 3.5-5.1 [facility] Protein [Mass/Vol] 7.4 g/dL 6.4-8.2 [facility] Sodium [Moles/Vol] 139 mmol/L 136-145 [facility] Triglyceride [Mass/Vol] 70 mg/dL <199 [facility] Comment on above: The drugs N-Acetylcy steine and Metamizole may falsely depress this assay.Serum Triglycerides Reference Interval Normal <150 mg/dL Borderline high 150 - 199 mg/dL High 200 - 499 mg/dL Very High > or = 500 mg/dL WBC (Bld) [#/Vol] 8.3 10*3/uL 4.4-11.0 [facility] Blood erythrocytes count (nu mber/volume)Ordered By: Delma Glover on 09-17-2022 RBC (Bld) [#/Vol] 4.17 10*6/uL 4.6-6.2 [facility] Blood hemoglobin measurement (mass/volume)Ordered By: Delma Glover on 09-17-2022 Hemoglobin (Bld) [Mass/Vol] 13.7 g/dL 13.0-16.5 [facility] Blood lymphocytes/100 leukoc ytesOrdered By: Delma Glover on 09-17-2022 Lymphocytes/100 WBC (Bld) 40.4 % 19-41 [facility] Blood monocytes/100 leukocyt esOrdered By: Delma Glover on 09-17-2022 Monocytes/100 WBC (Bld) 6.5 % 0-10 [facility] Blood platelet mean volumeOr dered By: Delma Glover on 09-17-2022 Platelet mean volume (Bld) [Entitic vol] 10.5 fL 6.2-12.0 [facility] Determination of erythrocyte mean corpuscular volume (MCV)Ordered By: Delma Glover on 09-17-2022 MCV (RBC) [Entitic vol] 101.9 fL 80-94 [facility] Hematocrit Auto (Bld) [Volum e fraction]Ordered By: Delma Glover on 09-17-2022 Hematocrit (Bld) [Volume fraction] 42.5 % 40-54 [facility] Laboratory - Chemistry and C hemistry - challengeOrdered By: Delma Glover on 09-17-2022 ALP [Catalytic activity/Vol] 68 U/L 45-117 [facility] ALT [Catalytic activity/Vol] 27 U/L 16-61 [facility] CO2 [Moles/Vol] 27.0 mmol/L 21.0-32.0 [facility] Free T4 [Mass/Vol] 1.33 ng/dL 0.76-1.46 [facility] Globulin (S) [Mass/Vol] 3.7 g/dL 2.2-4.2 [facility] Urea nitrogen/Creatinine [Mass ratio] 13.2 mg/mg 10-20 [facility] Laboratory - Hematology and Cell countsOrdered By: Delma Glover on 09-17-2022 Erythrocyte distribution width (RBC) [Entitic vol] 46.5 fL 35.1-43.9 [facility] Erythrocyte distribution width (RBC) [Ratio] 12.4 % 11.6-14.6 [facility] Immature granulocytes/100 WBC (Bld) 0.100 % 0.0-0.9 [facility] Comment on above: IG% - Immature Granu locytes (promyelocytes, myelocytes and metamyelocytes) > 1% indicates that a LEFT SHIFT is Present. MCH (RBC) [Entitic mass] 32.9 pg 27.0-32.0 [facility] Nucleated RBC/100 WBC (Bld) [Ratio] 0 % 0-5 [facility] MCHC Auto (RBC) [Mass/Vol]Or dered By: Delma Glover on 09-17-2022 MCHC (RBC) [Mass/Vol] 32.2 g/dL 32-36 [facility] No Panel InformationOrdered By: Delma Glover on 09-17-2022 Estimated GFR (MDRD) Amer 75 mL/min >60 [facility] Comment on above: GFR Calc Estimated GFR (MDRD) Non-Af Amer 62 mL/min >60 [facility] Comment on above: Non- GFR Calc Thyroid Stimulating Hormone (TSH) 1.99 uIU/mL 0.358-3.74 [facility] Platelets bldOrdered By: Vj Glover on 09-17-2022 Platelets (Bld) [#/Vol] 181 10*3/uL 150-450 [facility] Serum or plasma albumin linda urement (mass/volume)Ordered By: Delma Glover on 09-17-2022 Albumin [Mass/Vol] 3.7 g/dL 3.2-5.0 [facility] Serum or plasma albumin/glob ulin mass ratioOrdered By: Delma Glover on 09-17-2022 Albumin/Globulin [Mass ratio] 1.0 {ratio} 0.9-2.4 [facility] Serum or plasma calcium linda urement (mass/volume)Ordered By: Delma Glover on 09-17-2022 Calcium [Mass/Vol] 8.9 mg/dL 8.5-10.1 [facility] Serum or plasma cholesterol in HDL measurement (mass/volume)Ordered By: Delma Glover on 09-17-2022 Cholesterol in HDL [Mass/Vol] 59 mg/dL >40 [facility] Comment on above: The drugs N-Acetylcy steine and Metamizole may falsely depress this assay. Reference Range HDL <40 mg/dL Low HDL Cholesterol HDL >or= 60 mg/dL High HDL Cholesterol Serum or plasma cholesterol in VLDL measurement (mass/volume)Ordered By: Delma Glover on 09-17-2022 Cholesterol in VLDL [Mass/Vol] 14 mg/dL 5-40 [facility] Serum or plasma creatinine m easurement (mass/volume)Ordered By: Delma Glover on 09-17-2022 Creatinine [Mass/Vol] 1.21 mg/dL 0.70-1.30 [facility] Comment on above: The validity of the calculated GFR & GFRAA in patients over 70 years has not been determined. Clinical correlation is essential. Serum or plasma low density lipoprotein (LDL) cholesterol measurement (mass/volume)Ordered By: Delma Glover on 09-17-2022 Cholesterol in LDL [Mass/Vol] 69 mg/dL 0-130 [facility] Serum or plasma urea nitroge n measurement (mass/volume)Ordered By: Delma Glover on 09-17-2022 Urea nitrogen [Mass/Vol] 16 mg/dL 7-18 [facility] Thin prep Papanicolaou smear with manual screeningOrdered By: Delma Glover on 09-17-2022 Thin prep Papanicolaou smear with manual screening 28 U/L 15-37 [facility] Thin prep Papanicolaou smear with manual screening 6 5-15 [facility] Whole blood hemoglobin A1c/t otal hemoglobin ratio (mass fraction)Ordered By: Delma Glover on 09-17-2022 HbA1c (Bld) [Mass fraction] 5.9 % 3.8-5.6 [facility] Comment on above: Normal < 5.7 % Predi abetic 5.7 - 6.4 % Diabetic >or= 6.5 % Please note range changes. Absolute lymphocyte countOrd ered By: Dr. Glover on 05-14-2022 Lymphocytes Auto (Unsp spec) [#/Vol] 4.01 10*3/uL 0.83-4.51 [facility] Basophil percentageOrdered B y: Dr. Glover on 05-14-2022 Basophils/100 WBC (Bld) 0.6 % 0-1 [facility] Bilirubin [Mass/Vol] 0.50 mg/dL 0.20-1.00 [facility] Comment on above: For patients on eltr ombopag therapy, use of Dimension [place] TBIL is not recommended. Chloride [Moles/Vol] 106 mmol/L 98-107 [facility] Cholesterol [Mass/Vol] 128 mg/dL <200 [facility] Comment on above: <200 mg/dL Desirable 200-240 mg/dL Borderline >240 mg/dL High Risk Eosinophils/100 WBC (Bld) 1.1 % 0-5 [facility] Glucose [Mass/Vol] 99 mg/dL 74-106 [facility] Neutrophils (Bld) [#/Vol] 3.5 10*3/uL 2.0-7.7 [facility] Neutrophils/100 WBC (Bld) 41.8 % 47-70 [facility] Potassium [Moles/Vol] 4.0 mmol/L 3.5-5.1 [facility] Protein [Mass/Vol] 7.3 g/dL 6.4-8.2 [facility] Sodium [Moles/Vol] 137 mmol/L 136-145 [facility] Triglyceride [Mass/Vol] 128 mg/dL <199 [facility] Comment on above: The drugs N-Acetylcy steine and Metamizole may falsely depress this assay.Serum Triglycerides Reference Interval Normal <150 mg/dL Borderline high 150 - 199 mg/dL High 200 - 499 mg/dL Very High > or = 500 mg/dL WBC (Bld) [#/Vol] 8.4 10*3/uL 4.4-11.0 [facility] Blood erythrocytes count (nu mber/volume)Ordered By: Dr. Glover on 05-14-2022 RBC (Bld) [#/Vol] 4.25 10*6/uL 4.6-6.2 [facility] Blood hemoglobin measurement (mass/volume)Ordered By: Dr. Glover on 05-14-2022 Hemoglobin (Bld) [Mass/Vol] 13.6 g/dL 13.0-16.5 [facility] Blood lymphocytes/100 leukoc ytesOrdered By: Dr. Glover on 05-14-2022 Lymphocytes/100 WBC (Bld) 48.0 % 19-41 [facility] Blood monocytes/100 leukocyt esOrdered By: Dr. Glover on 05-14-2022 Monocytes/100 WBC (Bld) 8.3 % 0-10 [facility] Blood platelet mean volumeOr dered By: Dr. Glover on 05-14-2022 Platelet mean volume (Bld) [Entitic vol] 11.2 fL 6.2-12.0 [facility] Determination of erythrocyte mean corpuscular volume (MCV)Ordered By: Dr. Glover on 05-14-2022 MCV (RBC) [Entitic vol] 97.6 fL 80-94 [facility] Hematocrit Auto (Bld) [Volum e fraction]Ordered By: Dr. Glover on 05-14-2022 Hematocrit (Bld) [Volume fraction] 41.5 % 40-54 [facility] Laboratory - Chemistry and C hemistry - challengeOrdered By: Dr. Glover on 05-14-2022 ALP [Catalytic activity/Vol] 66 U/L 45-117 [facility] ALT [Catalytic activity/Vol] 23 U/L 16-61 [facility] CO2 [Moles/Vol] 24.0 mmol/L 21.0-32.0 [facility] Free T4 [Mass/Vol] 1.25 ng/dL 0.76-1.46 [facility] Globulin (S) [Mass/Vol] 3.5 g/dL 2.2-4.2 [facility] Urea nitrogen/Creatinine [Mass ratio] 15.4 mg/mg 10-20 [facility] Laboratory - Hematology and Cell countsOrdered By: Dr. Glover on 05-14-2022 Erythrocyte distribution width (RBC) [Entitic vol] 43.9 fL 35.1-43.9 [facility] Erythrocyte distribution width (RBC) [Ratio] 12.1 % 11.6-14.6 [facility] Immature granulocytes/100 WBC (Bld) 0.200 % 0.0-0.9 [facility] Comment on above: IG% - Immature Granu locytes (promyelocytes, myelocytes and metamyelocytes) > 1% indicates that a LEFT SHIFT is Present. MCH (RBC) [Entitic mass] 32.0 pg 27.0-32.0 [facility] Nucleated RBC/100 WBC (Bld) [Ratio] 0 % 0-5 [facility] MCHC Auto (RBC) [Mass/Vol]Or dered By: Dr. Glover on 05-14-2022 MCHC (RBC) [Mass/Vol] 32.8 g/dL 32-36 [facility] No Panel InformationOrdered By: Dr. Glover on 05-14-2022 Estimated GFR (MDRD) Amer 90 mL/min >60 [facility] Comment on above: GFR Calc Estimated GFR (MDRD) Non-Af Amer 74 mL/min >60 [facility] Comment on above: Non- GFR Calc Thyroid Stimulating Hormone (TSH) 1.74 uIU/mL 0.358-3.74 [facility] Platelets bldOrdered By: Dr. Glover on 05-14-2022 Platelets (Bld) [#/Vol] 219 10*3/uL 150-450 [facility] Serum or plasma albumin linda urement (mass/volume)Ordered By: Dr. Glover on 05-14-2022 Albumin [Mass/Vol] 3.8 g/dL 3.2-5.0 [facility] Serum or plasma albumin/glob ulin mass ratioOrdered By: Dr. Glover on 05-14-2022 Albumin/Globulin [Mass ratio] 1.1 {ratio} 0.9-2.4 [facility] Serum or plasma calcium linda urement (mass/volume)Ordered By: Dr. Glover on 05-14-2022 Calcium [Mass/Vol] 8.9 mg/dL 8.5-10.1 [facility] Serum or plasma cholesterol in HDL measurement (mass/volume)Ordered By: Dr. Glover on 05-14-2022 Cholesterol in HDL [Mass/Vol] 43 mg/dL >40 [facility] Comment on above: The drugs N-Acetylcy steine and Metamizole may falsely depress this assay. Reference Range HDL <40 mg/dL Low HDL Cholesterol HDL >or= 60 mg/dL High HDL Cholesterol Serum or plasma cholesterol in VLDL measurement (mass/volume)Ordered By: Dr. Glover on 05-14-2022 Cholesterol in VLDL [Mass/Vol] 26 mg/dL 5-40 [facility] Serum or plasma creatinine m easurement (mass/volume)Ordered By: Dr. Glover on 05-14-2022 Creatinine [Mass/Vol] 1.04 mg/dL 0.70-1.30 [facility] Comment on above: The validity of the calculated GFR & GFRAA in patients over 70 years has not been determined. Clinical correlation is essential. Serum or plasma low density lipoprotein (LDL) cholesterol measurement (mass/volume)Ordered By: Dr. Glover on 05-14-2022 Cholesterol in LDL [Mass/Vol] 59 mg/dL 0-130 [facility] Serum or plasma urea nitroge n measurement (mass/volume)Ordered By: Dr. Glover on 05-14-2022 Urea nitrogen [Mass/Vol] 16 mg/dL 7-18 [facility] Thin prep Papanicolaou smear with manual screeningOrdered By: Dr. Glover on 05-14-2022 Thin prep Papanicolaou smear with manual screening 21 U/L 15-37 [facility] Thin prep Papanicolaou smear with manual screening 7 5-15 [facility] Absolute lymphocyte countOrd ered By: Dr. Glover on 02-12-2022 Lymphocytes Auto (Unsp spec) [#/Vol] 3.33 10*3/uL 0.83-4.51 [facility] Basophil percentageOrdered B y: Dr. Glover on 02-12-2022 Basophils/100 WBC (Bld) 0.7 % 0-1 [facility] Bilirubin [Mass/Vol] 0.60 mg/dL 0.20-1.00 [facility] Comment on above: For patients on eltr ombopag therapy, use of Dimension [place] TBIL is not recommended. Chloride [Moles/Vol] 108 mmol/L 98-107 [facility] Cholesterol [Mass/Vol] 142 mg/dL <200 [facility] Comment on above: <200 mg/dL Desirable 200-240 mg/dL Borderline >240 mg/dL High Risk Eosinophils/100 WBC (Bld) 1.4 % 0-5 [facility] Glucose [Mass/Vol] 83 mg/dL 74-106 [facility] Neutrophils (Bld) [#/Vol] 2.9 10*3/uL 2.0-7.7 [facility] Neutrophils/100 WBC (Bld) 41.8 % 47-70 [facility] Potassium [Moles/Vol] 4.3 mmol/L 3.5-5.1 [facility] Protein [Mass/Vol] 7.3 g/dL 6.4-8.2 [facility] Sodium [Moles/Vol] 138 mmol/L 136-145 [facility] Triglyceride [Mass/Vol] 111 mg/dL <199 [facility] Comment on above: The drugs N-Acetylcy steine and Metamizole may falsely depress this assay.Serum Triglycerides Reference Interval Normal <150 mg/dL Borderline high 150 - 199 mg/dL High 200 - 499 mg/dL Very High > or = 500 mg/dL WBC (Bld) [#/Vol] 7.0 10*3/uL 4.4-11.0 [facility] Blood erythrocytes count (nu mber/volume)Ordered By: Dr. Glover on 02-12-2022 RBC (Bld) [#/Vol] 4.29 10*6/uL 4.6-6.2 [facility] Blood hemoglobin measurement (mass/volume)Ordered By: Dr. Glover on 02-12-2022 Hemoglobin (Bld) [Mass/Vol] 14.2 g/dL 13.0-16.5 [facility] Blood lymphocytes/100 leukoc ytesOrdered By: Dr. Glover on 02-12-2022 Lymphocytes/100 WBC (Bld) 47.3 % 19-41 [facility] Blood monocytes/100 leukocyt esOrdered By: Dr. Glover on 02-12-2022 Monocytes/100 WBC (Bld) 8.5 % 0-10 [facility] Blood platelet mean volumeOr dered By: Dr. Glover on 02-12-2022 Platelet mean volume (Bld) [Entitic vol] 11.3 fL 6.2-12.0 [facility] Determination of erythrocyte mean corpuscular volume (MCV)Ordered By: Dr. Glover on 02-12-2022 MCV (RBC) [Entitic vol] 98.8 fL 80-94 [facility] Hematocrit Auto (Bld) [Volum e fraction]Ordered By: Dr. Glover on 02-12-2022 Hematocrit (Bld) [Volume fraction] 42.4 % 40-54 [facility] Laboratory - Chemistry and C hemistry - challengeOrdered By: Dr. Glover on 02-12-2022 ALP [Catalytic activity/Vol] 70 U/L 45-117 [facility] ALT [Catalytic activity/Vol] 24 U/L 16-61 [facility] CO2 [Moles/Vol] 25.0 mmol/L 21.0-32.0 [facility] Free T4 [Mass/Vol] 1.23 ng/dL 0.76-1.46 [facility] Globulin (S) [Mass/Vol] 3.2 g/dL 2.2-4.2 [facility] Urea nitrogen/Creatinine [Mass ratio] 15.5 mg/mg 10-20 [facility] Laboratory - Hematology and Cell countsOrdered By: Dr. Glover on 02-12-2022 Erythrocyte distribution width (RBC) [Entitic vol] 43.4 fL 35.1-43.9 [facility] Erythrocyte distribution width (RBC) [Ratio] 11.9 % 11.6-14.6 [facility] Immature granulocytes/100 WBC (Bld) 0.300 % 0.0-0.9 [facility] Comment on above: IG% - Immature Granu locytes (promyelocytes, myelocytes and metamyelocytes) > 1% indicates that a LEFT SHIFT is Present. MCH (RBC) [Entitic mass] 33.1 pg 27.0-32.0 [facility] Nucleated RBC/100 [facility] (Bld) [[facility]] 0 [facility] [Mass/Vol]Or dered By: Dr. Glover on 02-12-2022 MCHC (RBC) [Mass/Vol] 33.5 g/dL 32-36 [facility] No Panel InformationOrdered By: Dr. Glover on 02-12-2022 Estimated GFR (MDRD) Amer 84 mL/min >60 [facility] Comment on above: GFR Calc Estimated GFR (MDRD) Non-Af Amer 70 mL/min >60 [facility] Comment on above: Non- GFR Calc Prostate Specific Antigen Screen 1.07 ng/mL 0.00-4.00 [facility] Comment on above: This test was perfor med using the TPSA assay method for [employer] chemistry system. Values obtained with differentassay methods cannot be used interchangably.When changing PSA assays in the course of monitoring apatient, additional sequential testing should be carriedout to confirm baseline values. Thyroid Stimulating Hormone (TSH) 1.58 uIU/mL 0.358-3.74 [facility] Platelets bldOrdered By: Dr. Glover on 02-12-2022 Platelets (Bld) [#/Vol] 184 10*3/uL 150-450 [facility] Serum or plasma albumin linda urement (mass/volume)Ordered By: Dr. Glover on 02-12-2022 Albumin [Mass/Vol] 4.1 g/dL 3.2-5.0 [facility] Serum or plasma albumin/glob ulin mass ratioOrdered By: Dr. Glover on 02-12-2022 Albumin/Globulin [Mass ratio] 1.3 {ratio} 0.9-2.4 [facility] Serum or plasma calcium linda urement (mass/volume)Ordered By: Dr. Glover on 02-12-2022 Calcium [Mass/Vol] 8.9 mg/dL 8.5-10.1 [facility] Serum or plasma cholesterol in HDL measurement (mass/volume)Ordered By: Dr. Glover on 02-12-2022 Cholesterol in HDL [Mass/Vol] 50 mg/dL >40 [facility] Comment on above: The drugs N-Acetylcy steine and Metamizole may falsely depress this assay. Reference Range HDL <40 mg/dL Low HDL Cholesterol HDL >or= 60 mg/dL High HDL Cholesterol Serum or plasma cholesterol in VLDL measurement (mass/volume)Ordered By: Dr. Glover on 02-12-2022 Cholesterol in VLDL [Mass/Vol] 22 mg/dL 5-40 [facility] Serum or plasma creatinine m easurement (mass/volume)Ordered By: Dr. Glover on 02-12-2022 Creatinine [Mass/Vol] 1.10 mg/dL 0.70-1.30 [facility] Comment on above: The validity of the calculated GFR & GFRAA in patients over 70 years has not been determined. Clinical correlation is essential. Serum or plasma low density lipoprotein (LDL) cholesterol measurement (mass/volume)Ordered By: Dr. Glover on 02-12-2022 Cholesterol in LDL [Mass/Vol] 70 mg/dL 0-130 [facility] Serum or plasma urea nitroge n measurement (mass/volume)Ordered By: Dr. Glover on 02-12-2022 Urea nitrogen [Mass/Vol] 17 mg/dL 7-18 [facility] Thin prep Papanicolaou smear with manual screeningOrdered By: Dr. Glover on 02-12-2022 Thin prep Papanicolaou smear with manual screening 22 U/L 15-37 [facility] Thin prep Papanicolaou smear with manual screening 5 5-15 [facility] Absolute lymphocyte counton 08-29-2021 Lymphocytes Auto (Unsp spec) [#/Vol] 3.35 10*3/uL 0.83-4.51 [facility] Work Phone: Basophil percentageon 2021 Basophils/100 WBC (Bld) 0.8 % 0-1 [facility] Work Phone: Bilirubin [Mass/Vol] 0.40 mg/dL 0.20-1.00 [facility] Work Phone: Comment on above: For patients on eltr ombopag therapy, use of Dimension [place] TBIL is not recommended. Chloride [Moles/Vol] 106 mmol/L 98-[address] [facility] Work [facility]: Cholesterol [Mass/Vol] 155 mg/dL <200 [facility] Work Phone: Comment on above: <200 mg/dL Desirable 200-240 mg/dL Borderline >240 mg/dL High Risk Eosinophils/100 WBC (Bld) 2.4 % 0-5 [facility] Work Phone: Glucose [Mass/Vol] 96 mg/dL 74-106 [facility] Work Phone: Neutrophils (Bld) [#/Vol] 3.7 10*3/uL 2.0-7.7 [facility] Work Phone: Neutrophils/100 WBC (Bld) 46.4 % 47-70 [facility] Work Phone: Potassium [Moles/Vol] 4.0 mmol/L 3.5-5.1 [facility] Work Phone: Protein [Mass/Vol] 7.2 g/dL 6.4-8.2 [facility] Work Phone: Sodium [Moles/Vol] 137 mmol/L 136-145 [facility] Work Phone: Triglyceride [Mass/Vol] 160 mg/dL <199 [facility] Work Phone: Comment on above: The drugs N-Acetylcy steine and Metamizole may falsely depress this assay.Serum Triglycerides Reference Interval Normal <150 mg/dL Borderline high 150 - 199 mg/dL High 200 - 499 mg/dL Very High > or = 500 mg/dL WBC (Bld) [#/Vol] 8.0 10*3/uL 4.4-11.0 [facility] Work Phone: Blood erythrocytes count (nu mber/volume)on 08-29-2021 RBC (Bld) [#/Vol] 4.31 10*6/uL 4.6-6.2 [facility] Work Phone: [phone] Blood hemoglobin measurement (mass/volume)on 08-29-2021 Hemoglobin (Bld) [Mass/Vol] 13.9 g/dL 13.0-16.5 [facility] Work Phone: Blood lymphocytes/100 leukoc yteson 08-29-2021 Lymphocytes/100 WBC (Bld) 42.1 % 19-41 [facility] Work Phone: Blood monocytes/100 leukocyt eson 08-29-2021 Monocytes/100 WBC (Bld) 7.9 % 0-10 [facility] Work Phone: Blood platelet mean volumeon 08-29-2021 Platelet mean volume (Bld) [Entitic vol] 11.2 fL 6.2-12.0 [facility] Work Phone: Determination of erythrocyte mean corpuscular volume (MCV)on 08-29-2021 MCV (RBC) [Entitic vol] 99.8 fL 80-94 [facility] Work Phone: Hematocrit Auto (Bld) [Volum e fraction]on 08-29-2021 Hematocrit (Bld) [Volume fraction] 43.0 % 40-54 [facility] Work Phone: Laboratory - Chemistry and C hemistry - challengeon 08-29-2021 ALP [Catalytic activity/Vol] 68 U/L 45-117 [facility] Work Phone: ALT [Catalytic activity/Vol] 23 U/L 16-61 [facility] Work Phone: CO2 [Moles/Vol] 24.0 mmol/L 21.0-32.0 [facility] Work Phone: Free T4 [Mass/Vol] 1.09 ng/dL 0.76-1.46 [facility] Work Phone: Globulin (S) [Mass/Vol] 3.5 g/dL 2.2-4.2 [facility] Work Phone: Urea nitrogen/Creatinine [Mass ratio] 16.2 mg/mg 10-20 [facility] Work Phone: Laboratory - Hematology and Cell countson 08-29-2021 Erythrocyte distribution width (RBC) [Entitic vol] 44.7 fL 35.1-43.9 [facility] Work Phone: [phone] Erythrocyte distribution width (RBC) [Ratio] 12.2 % 11.6-14.6 [facility] Work Phone: [phone] Immature granulocytes/100 WBC (Bld) 0.400 % 0.0-0.9 [facility] Work Phone: [phone] Comment on above: IG% - Immature Granu locytes (promyelocytes, myelocytes and metamyelocytes) > 1% indicates that a LEFT SHIFT is Present. MCH (RBC) [Entitic mass] 32.3 pg 27.0-32.0 [facility] Work Phone: [phone] Nucleated RBC/100 WBC (Bld) [Ratio] 0 % 0-5 [facility] Work Phone: [phone] MCHC Auto (RBC) [Mass/Vol]on 08-29-2021 MCHC (RBC) [Mass/Vol] 32.3 g/dL 32-36 [facility] Work Phone: No Panel Informationon 08-29 Estimated GFR (MDRD) Amer 83 mL/min >60 [facility] Work Phone: Comment on above: GFR Calc Estimated GFR (MDRD) Non-Af Amer 69 mL/min >60 [facility] Work Phone: [phone] Comment on above: Non- GFR Calc Thyroid Stimulating Hormone (TSH) 1.59 uIU/mL 0.358-3.74 [facility] Work Phone: Platelets bldon 08-29-2021 Platelets (Bld) [#/Vol] 204 10*3/uL 150-450 [facility] Work Phone: [phone] Serum or plasma albumin linda urement (mass/volume)on 08-29-2021 Albumin [Mass/Vol] 3.7 g/dL 3.2-5.0 [facility] Work Phone: [phone] Serum or plasma albumin/glob ulin mass ratioon 08-29-2021 Albumin/Globulin [Mass ratio] 1.1 {ratio} 0.9-2.4 [facility] Work Phone: Serum or plasma calcium linda urement (mass/volume)on 08-29-2021 Calcium [Mass/Vol] 8.8 mg/dL 8.5-10.1 [facility] Work Phone: Serum or plasma cholesterol in HDL measurement (mass/volume)on 08-29-2021 Cholesterol in HDL [Mass/Vol] 44 mg/dL >40 [facility] Work Phone: Comment on above: The drugs N-Acetylcy steine and Metamizole may falsely depress this assay. Reference Range HDL <40 mg/dL Low HDL Cholesterol HDL >or= 60 mg/dL High HDL Cholesterol Serum or plasma cholesterol in VLDL measurement (mass/volume)on 08-29-2021 Cholesterol in VLDL [Mass/Vol] 32 mg/dL 5-40 [facility] Work Phone: [phone] Serum or plasma creatinine m easurement (mass/volume)on 08-29-2021 Creatinine [Mass/Vol] 1.11 mg/dL 0.70-1.30 [facility] Work Phone: Comment on above: The validity of the calculated GFR & GFRAA in patients over 70 years has not been determined. Clinical correlation is essential. Serum or plasma low density lipoprotein (LDL) cholesterol measurement (mass/volume)on 08-29-2021 Cholesterol in LDL [Mass/Vol] 79 mg/dL 0-130 [facility] Work Phone: [phone] Serum or plasma urea nitroge n measurement (mass/volume)on 08-29-2021 Urea nitrogen [Mass/Vol] 18 mg/dL 7-18 [facility] Work Phone: [phone] Thin prep Papanicolaou smear with manual screeningon 08-29-2021 Thin prep Papanicolaou smear with manual screening 23 U/L 15-37 [facility] Work Phone: [phone] Thin prep Papanicolaou smear with manual screening 7 5-15 [facility] Work Phone: Laboratory - Microbiology an d Antimicrobial susceptibilityon 07-07-2021 SARS-CoV-2 (COVID-19) RNA AMOS+probe Ql (Unsp spec) Not detected [facility] Work Phone: No Panel Informationon 07-07 Influenza Types A,B Rapid (Clinic) Not detected [facility] Work Phone: Laboratory - Chemistry and C hemistry - challengeon 02-25-2021 CK [Catalytic activity/Vol] 166 U/L 39-308 [facility] Work Phone: [phone] Magnesium [Mass/Vol] 2.3 mg/dL 1.6-2.6 [facility] Work Phone: No Panel Informationon 02-25 Prostate Specific Antigen Total 1.14 ng/mL 0.0-4.0 [facility] Work Phone: Comment on above: This test was perfor med using the TPSA assay method for [employer] chemistry system. Values obtained with differentassay methods cannot be used interchangably.When changing PSA assays in the course of monitoring apatient, additional sequential testing should be carriedout to confirm baseline values. Thyroid Stimulating Hormone (TSH) 1.08 uIU/mL 0.358-3.74 [facility] Work Phone: Serum or plasma ferritin noel surement (mass/volume)on 02-25-2021 Ferritin [Mass/Vol] 188 ng/mL 26-388 [facility] Work Phone: Office Visit: UC: bronchitis on 12-24-2016 Documentation of current medications (procedure) Done Invalid Interpretation Code [facility] Work Phone: Fall risk assessment No Invalid Interpretation Code [facility] Work Phone: Tobacco smoking status NHIS Never Invalid Interpretation Code [facility] Work Phone: Tobacco use CPHS Never smoker Invalid Interpretation Code [facility] Work Phone: MRI CERVICAL SPINE W/O CONTR Wanda 09-01-2016 MRI CERVICAL SPINE W/O CONTRAST Performed at [facility] [facility] APPROVED BY: Fuentes Castillo MD EXAMINATION: MRI CERVICAL SPINE W/O CONTRAST CLINICAL HISTORY: The patient is a 70-year-old male with left radicular arm pain. TECHNIQUE: Routine cervical spine MR protocol without gadolinium. COMPARISON: None. RESULT: Counting reference: Craniocervical junction. Alignment: Alignment is anatomic. Craniocervical junction: Craniocervical junction is normal. Cord: The visualized cord is within normal limits of signal intensity and morphology. Bone marrow signal/fracture: No evidence of pathologic marrow infiltration. No evidence of prior fracture. Cervical soft tissues: The paraspinal soft tissues are within normal limits. C2-C3: Canal and foramina are patent. C3-C4: There is minimal uncovertebral hypertrophic change causing minimal foraminal narrowing bilaterally. C4-C5: There is some right uncovertebral hypertrophic change causing very slight right foraminal narrowing. C5-C6: There is generalized disc protrusion somewhat more eccentric to the right than the left causing a mild central canal, right lateral recess, and medial right foraminal narrowing and slight left lateral recess and medial left foraminal narrowing. C6-C7: Canal and foramina are patent. C7-T1: Canal and foramina are patent. IMPRESSION: There is scattered cervical spondylosis with the greatest degree of stenosis at C5-6 greater on the right side than the left opposite to the side of symptomatology. [facility] THORACIC SPINE W/O CONTR Wanda 09-01-2016 MRI THORACIC SPINE W/O CONTRAST Performed at [facility] APPROVED BY: Fuentes Castillo MD EXAM TITLE: MRI OF THE THORACIC SPINE WO CONTRAST DATE: 09/01/2016 12:06 COMPARISON: None. CLINICAL INDICATION/HISTORY: The patient is a 62-year-old male with left posterior scapular pain. TECHNIQUE: All images were obtained with the use of a surface coil placed over the dorsal aspect of the thoracic spine. In the sagittal plane T1 and turbo spin echo T2 weighted images were obtained. In the axial plane T1 and turbo spin echo T2 weighted images were obtained. FINDINGS: Counting reference: Craniocervical junction. Alignment: Alignment is anatomic. Cord: The visualized cord is within normal limits of signal intensity and morphology. Bone marrow signal/fracture: No evidence of pathologic marrow infiltration. No evidence of prior fracture. Thoracic soft tissues: The paraspinal soft tissues are within normal limits. Disc space heights: All of the thoracic disc space heights are normal. Canal and foramina: There are some small disc bulges that create no significant stenosis. These are located at T8-9 eccentric to the left and T6-7 centrally. There are small nerve root sleeve cysts involving the left T6 nerve root and right T10 nerve root. IMPRESSION: There is minimal thoracic spondylosis with some focal disc bulging at T8-9 and T6-7. Normal [facility] Vital Signs Date Time Vital Sign Value Performing Clinician Facility 11-17-2023 12:47-0400 Diastolic blood pressure 78 mm[Hg] Rita Chaidez Jr., MD Work Phone: [facility] 11-17-2023 12:47-0400 Heart rate 71 /min Rita Chaidez Jr., MD Work Phone: [facility] 11-17-2023 12:47-0400 SaO2% (BldA) [Mass fraction] 95 % Rita Chaidez Jr., MD Work Phone: [facility] 11-17-2023 12:47-0400 Systolic blood pressure 122 mm[Hg] Rita Chaidez Jr., MD Work Phone: [facility] 09-24-2023 14:16-0400 Diastolic blood pressure 68 mm[Hg] Trcie Montes MD Work Phone: [facility] 09-24-2023 14:16-0400 Heart rate 78 /min Trice Montes MD Work Phone: [facility] 09-24-2023 14:16-0400 Respiratory rate 16 /min Trice Montes MD Work Phone: [facility] 09-24-2023 14:16-0400 SaO2% (BldA) [Mass fraction] 95 % Trice Montes MD Work Phone: [facility] 09-24-2023 14:16-0400 Systolic blood pressure 110 mm[Hg] Trice Montes MD Work Phone: [facility] 09-24-2023 12:25-0400 Body mass index (BMI) [Ratio] 26.89 kg/m2 Trice Montes MD Work Phone: [facility] 09-24-2023 12:25-0400 Body temperature 98.2 [degF] Trice Montes MD Work Phone: [facility] 09-24-2023 12:25-0400 Body weight 82.6 kg Trice Montes MD Work Phone: [facility] 09-21-2023 11:21-0400 Body height 175.3 cm Dalia Ezio FOSTER CARE CASE MANAGER.SECURITY ASSESSOR Work Phone: [facility] 09-21-2023 11:21-0400 Body mass index (BMI) [Ratio] 26.91 kg/m2 Dalia Ezio FOSTER CARE CASE MANAGER.SECURITY ASSESSOR Work Phone: [facility] 09-21-2023 11:21-0400 Body temperature 97.81 [degF] Dalia Ezio FOSTER CARE CASE MANAGER.SECURITY ASSESSOR Work Phone: [facility] 09-21-2023 11:21-0400 Body weight 82.64 kg Dalia Ezio FOSTER CARE CASE MANAGER.SECURITY ASSESSOR Work Phone: [facility] 09-21-2023 11:21-0400 Diastolic blood pressure 68 mm[Hg] Dalia Ezio FOSTER CARE CASE MANAGER.SECURITY ASSESSOR Work Phone: [facility] 09-21-2023 11:21-0400 Heart rate 94 /min Dalia Ezio FOSTER CARE CASE MANAGER.SECURITY ASSESSOR Work Phone: [facility] 09-21-2023 11:21-0400 SaO2% (BldA) [Mass fraction] 97 % Dalia Ezio FOSTER CARE CASE MANAGER.SECURITY ASSESSOR Work Phone: [facility] 09-21-2023 11:21-0400 Systolic blood pressure 112 mm[Hg] Dalia Ezio FOSTER CARE CASE MANAGER.SECURITY ASSESSOR Work Phone: [facility] 09-25-2022 13:02-0400 Body height 175.[address] Delma Glover Work Phone: [facility] 09-25-2022 13:02-0400 Body mass index (BMI) [Ratio] 27.6 kg/m2 Dr. Delma Glover Work Phone: [facility] 09-25-2022 13:02-0400 Body weight 84.[address] Delma Glover Work Phone: [facility] 07-07-2021 16:03-0400 Body temperature 98 [degF] Dr. Delma Glover Work Phone: [facility] Work Phone: 07-07-2021 16:03-0400 Diastolic blood pressure 66 mm[Hg] Dr. Delma Glover Work Phone: [facility] Work Phone: 07-07-2021 16:03-0400 Heart rate 100 /min Dr. Delma Glover Work Phone: [facility] Work Phone: 07-07-2021 16:03-0400 Respiratory rate 16 /min Dr. Delma Glover Work Phone: [facility] Work Phone: 07-07-2021 16:03-0400 SaO2% (BldA) [Mass fraction] 97 % Dr. Delma Glover Work Phone: [facility] Work Phone: 07-07-2021 16:03-0400 Systolic blood pressure 138 mm[Hg] Dr. Delma Glover Work Phone: [facility] Work Phone: 05-13-2021 07:55-0400 Body temperature 98.4 [degF] Dr. Delma Glover Work Phone: [facility] Work Phone: 05-13-2021 07:55-0400 Diastolic blood pressure 63 mm[Hg] Dr. Delma Glover Work Phone: [facility] Work Phone: 05-13-2021 07:55-0400 Heart rate 68 /min Dr. Delma Glover Work Phone: [facility] Work Phone: 05-13-2021 07:55-0400 Respiratory rate 18 /min Dr. Delma Glover Work Phone: [facility] Work Phone: 05-13-2021 07:55-0400 SaO2% (BldA) [Mass fraction] 95 % Dr. Delma Glover Work Phone: [facility] Work Phone: 05-13-2021 07:55-0400 Systolic blood pressure 104 mm[Hg] Dr. Delma Glover Work Phone: [facility] Work Phone: 05-13-2021 06:39-0400 Body height 175.[address] Delma Glover Work Phone: [facility] Work Phone: 05-13-2021 06:39-0400 Body mass index (BMI) [Ratio] 27.7 kg/m2 Dr. Delma Glover Work Phone: [facility] Work Phone: 05-13-2021 06:39-0400 Body weight 85.[address] Delma Glover Work Phone: [facility] Work Phone: 12-24-2016 15:28-0400 BMI (Body Mass Index) 27.4 kg/m2 Perez COYLE [facility] Work Phone: 12-24-2016 15:28-0400 Body Temperature 98.8 [degF] Perez [facility] Work Phone: 12-24-2016 15:28-0400 BP Diastolic 72 mm[Hg] Perez COYLE [facility] Work Phone: 12-24-2016 15:28-0400 BP Systolic 112 mm[Hg] Perez [facility]YLE [facility] Work Phone: 12-24-2016 15:28-0400 Height 177.8 cm Perez [facility]YLE [facility] Work Phone: 12-24-2016 15:28-0400 Pulse (Heart Rate) 63 /min Perez [facility] Work Phone: 12-24-2016 15:28-0400 Respiratory Rate 14 /min Perez COYLE [facility] Work Phone: 12-24-2016 15:28-0400 Weight 86.64 kg Perez [facility]YLE [facility] Work Phone: Encounters Encounter Date Encounter Type Care Provider Facility Start: 09-25-2024 ambulatory Delma Glover Facilit y:[facility] Start: 07-13-2024 ambulatory Delma Glover Facilit y:[facility] Start: 07-05-2024 ambulatory Amadeo Longo Facili ty:[facility] Start: 07-05-2024 End: 07-05-2024 ambulatory Amadeo Longo Facility:[facility] Start: 06-08-2024 End: 06-08-2024 ambulatory Delma Glover Facility:[facility] Start: 05-15-2024 End: 05-30-2024 Refill Dalia Holguin APRN.CNP Work Phone: General Surgery Comment on above: Refill Request Start: 05-11-[address] Fidencio Longo DO -Occupational Therapy Work Phone: Start: 05-04-2024 End: 05-04-[address] Delma Glover MD Work Phone: [facility] Work Phone: Start: 05-04-2024 End: 05-04-[address] Delma Glover MD -Laboratory, [facility] Start: 05-04-2024 End: 05-04-2024 ambulatory Delma Glover Facility:[facility] Start: 01-22-2024 End: 01-25-2024 Refill Dalia Ezio FOSTER CARE CASE MANAGER.SECURITY ASSESSOR Work Phone: General Surgery Comment on above: Refill Request Start: 01-11-2024 End: 01-11-2024 ambulatory [facility] Facility:[facility] Start: 12-25-2023 End: 12-27-2023 Refill Dalia Ezio FOSTER CARE CASE MANAGER.SECURITY ASSESSOR Work Phone: General Surgery Comment on above: Refill Request Start: 11-17-2023 End: 11-17-2023 Patient encounter procedure Rita Chaidez MD Work Phone: [facility] Comment on above: Renal cyst (Primary Dx) Start: 11-17-2023 End: 11-17-2023 ambulatory RITA CHAIDEZ JR Facility:[facility] Start: 10-06-2023 End: 10-06-2023 ambulatory [facility] Facility:[facility] Start: 10-06-2023 End: 10-06-2023 Patient encounter procedure Dalia Holguin FOSTER CARE CASE MANAGER.SECURITY ASSESSOR Work Phone: General Surgery Comment on above: Gastroesophageal ref lux disease with esophagitis without hemorrhage (Primary Dx); Cyst of right kidney Start: 09-28-2023 End: 09-28-2023 ambulatory [facility] Facility:[facility] Start: 09-28-2023 End: 09-28-2023 Subsequent hospital visit by physician Michelle [facility] Work Phone: Cat Scan Comment on above: Pain of upper abdome n [R10.10] Start: 09-24-2023 End: 09-24-2023 ambulatory DALIA HOLGUIN Facility:[facility] Start: 09-24-2023 End: 09-24-2023 Subsequent hospital visit by physician Trice Montes MD Work Phone: Ambulatory Surgery Comment on above: Gastro-esophageal re flux disease without esophagitis [K21.9] Start: 09-21-2023 Telephone encounter Dalia Holguin APRN.SECURITY ASSESSOR Work Phone: General Surgery Start: 09-21-2023 End: 09-21-2023 ambulatory DALIA HOLGUIN Facility:[facility] Start: 09-21-2023 End: 09-21-2023 Patient encounter procedure Dalia Holguin FOSTER CARE CASE MANAGERJennSECURITY ASSESSOR Work Phone: General Surgery Comment on above: Gastro-esophageal re flux disease without esophagitis (Primary Dx); Pain of upper abdomen; Throat clearing Start: 03-16-2023 End: 03-16-2023 ambulatory [facility] Work Phone: Start: 03-16-2023 End: 03-16-2023 Patient encounter procedure [facility] Work Phone: Start: 03-09-2023 End: 03-09-2023 ambulatory [facility] Work Phone: Start: 03-09-2023 End: 03-09-2023 Patient encounter procedure [facility] Start: 01-21-2023 End: 01-21-[address] Delma Glover Work Phone: [facility] Work Phone: Start: 01-21-2023 End: 01-21-[address] Delma Glover Work Phone: [facility] Start: 10-09-2022 End: 10-09-[address] Delma Glover Work Phone: [facility] Work Phone: Start: 10-03-2022 End: 10-03-[address] Delma Glover Work Phone: [facility] Work Phone: Start: 10-03-2022 End: 10-03-[address] Delma Glover Work Phone: [facility] Work Phone: Start: 09-25-2022 End: 09-25-[address] Delma Glover Work Phone: [facility] Radiology Start: 09-17-2022 End: 09-17-2022 ambulatory [facility] Work Phone: Start: 09-17-2022 End: 09-17-2022 Patient encounter procedure [facility] Start: 05-27-2022 End: 05-27-2022 ambulatory [facility] Work Phone: Start: 05-27-2022 End: 05-27-2022 Patient encounter procedure [facility] Start: 05-14-2022 End: 05-14-2022 ambulatory [facility] Work Phone: Start: 05-14-2022 End: 05-14-2022 Patient encounter procedure [facility] Start: 02-12-2022 End: 02-12-2022 Patient encounter procedure [facility] Start: 12-17-2021 Telephone encounter Fatou louise MD Work Phone: Neurology Comment on above: Patient Update (MRI results ) Start: 12-10-2021 Telephone encounter Neurology Provid er Neurology Comment on above: Appointment Reschedu led Start: 09-25-2021 End: 09-25-[address] Delma Glover Work Phone: [facility] Start: 08-29-2021 End: 08-29-[address] Delma Glover Work Phone: [facility] Start: 08-13-2021 End: 08-13-[address] Delma Glover Work Phone: [facility] Start: 07-07-2021 End: 07-07-[address] Delma Glover Work Phone: [facility] Start: 05-13-2021 Non-patient / Non-visit Dr. Viviana Glover Work Phone: [facility] Start: 05-13-2021 End: 05-13-2021 Admission to same day surgery center Dr. Delma Glover Work Phone: [facility]-Endoscopy Start: 04-28-2021 End: 04-28-[address] Delma Glover Work Phone: [facility] Start: 02-25-2021 End: 02-25-[address] Delma Glover Work Phone: [facility] Start: 09-01-2016 End: 09-02-2016 Ambulatory [facility] Facility:[facility] Procedures Date Procedure Procedure Detail Performing Clinician Start: 11-17-2023 Urnls dip stick/tablet rgnt auto w/o microscopy Rita Chaidez MD Work Phone: Start: 09-24-2023 Esophagogastroduodenoscopy transoral diagnostic Dalia Holguin APRN.CNP Work Phone: Start: 10-03-2022 MRI of lumbar spine Dr. Delma Glover Work Phone: Start: 09-25-2022 X-ray of lumbar spine, two or three views Dr. Delma Glover Work Phone: Start: 05-27-2022 Plain x-ray of pelvis and lower extremity Start: 09-25-2021 MRI of brain with contrast Dr. Delma ayala Work Phone: Start: 08-13-2021 Radiography of nasal sinuses Dr. Delma engle Work Phone: Start: 05-13-[address] Delma Glover Work Phone: Plan of Treatment Date Care Activity Detail Author Start: 08-22-2030 Urine microalbumin profile DTaP,Tdap,Td Vaccine (2 - Td or Tdap) [facility] Start: 11-22-2024 End: 11-22-2024 Patient encounter procedure 11/22/2024 1:00 PM EDT Office Visit [facility] [address] [place] [phone] Rita Chaidez Jr., MD [address] [place] [address] 1 year follow up, renal us prior [facility] Comment on above: 1 year follow up, re nal us prior Start: 11-16-2024 End: 12-16-2024 US Kidney - bilateral and Urinary bladder US KIDNEY/BLADDER Radiology Routine Renal cyst Expected: 11/16/2024, Expires: 12/16/2024 [facility] Work Phone: Comment on above: Expected: 11/16/2024 , Expires: 12/16/2024 Start: 11-16-2024 End: 11-16-2024 Patient encounter procedure 11/16/2024 1:00 PM EDT Appointment Radiology [address] [place], [place] [id number] Renal cyst [N28.1] Radiology Comment on above: Renal cyst [N28.1] Start: 02-23-2024 Advance Directive Discussion Advance Directive Discussion [facility] Start: 10-24-2023 Covid-19 Vaccine ( season) Covid-19 Vaccine ( season) [facility] Start: 10-24-2023 Influenza vaccination Influenza Vacc ine (#1) [facility] Start: 10-06-2023 End: 10-06-2023 Patient encounter procedure 10/06/2023 10:00 AM EDT Office Visit General Surgery [address] [place], [place] [id number] Dalia Holguin APRN.SECURITY ASSESSOR [address] [place], [place] [id number] 09-23 EGD follow up General Surgery Comment on above: 09-23 EGD follow up Start: 09-28-2023 End: 09-28-2023 Patient encounter procedure Cat Scan Comment on above: Pain of upper abdome n [R10.10] Start: 09-24-2023 End: 09-24-2023 Patient encounter procedure 09/24/2023 2:00 PM EDT Appointment Ambulatory Surgery [address] [place], [place] [id number] Trice Montes MD [address] [place] [address] Ambulatory Surgery Start: 09-24-2023 Subsequent hospital visit by physician 09/24/2023 11:54 AM EDT Hospital Encounter Ambulatory Surgery [address] [place], [place] [id number] Trice Montes MD [address] [place] [phone] Gastro-esophageal reflux disease without esophagitis [K21.9] Ambulatory Surgery Comment on above: Gastro-esophageal re flux disease without esophagitis [K21.9] Start: 05-27-2023 Covid-19 Vaccine ( season) Covid-19 Vaccine ( season) [facility] Start: 02-22-2023 Advance Directive Discussion Advance Directive Discussion [facility] Start: 12-14-2022 RSV Vaccine (1 - 1-d ose 75+ series) RSV Vaccine (1 - 1-dose 75+ series) [facility] Start: 10-09-2022 Patient referral [facility] Work Phone: Start: 10-23-2021 Influenza vaccination INFLUENZA (#1) [facility] Start: 05-13-2021 Colonoscopy w/biopsy single/multiple COLONOSCOPY AND BIOPSY [facility] Work Phone: Start: 05-13-2021 [facility] Start: 02-22-2021 ADVANCE DIRECTIVE DISCUSSION ADVANCE DIRECTIVE DISCUSSION [facility] Start: 02-22-2021 DEPRESSION ASSESSMENT DEPRESSION ASS ESSMENT [facility] Start: 12-24-2016 End: 12-24-2016 Appointment Appointment [facility] Work Phone: Start: 12-24-2016 End: 12-24-2016 Chest x-ray X-Ray, Chest, PA & Lateral [facility] Work Phone: Start: 12-14-2012 PNEUMOCOCCAL: 65+ (1 - PCV) PNEUMOCOCCAL: 65+ (1 - PCV) [facility] Start: 2007 RSV Vaccine (1 - 1-d ose 60+ series) RSV Vaccine (1 - 1-dose 60+ series) [facility] Start: 12-14-1997 SHINGRIX VACCINE (1 of 2) SHINGRIX VACCINE (1 of 2) [facility] Start: 12-14-1992 COLOGUARD (FIT-DNA) COLOGUARD (FIT-D NA) [facility] Start: 12-14-1992 Colonoscopy COLONOSCOPY [facility] Start: 12-14-1992 COLORECTAL CANCER SCREENING COLORECTAL CANCER SCREENING [facility] Start: 12-14-[address] COLONOGRAPHY [facility] Start: 12-14-1992 DIABETES SCREEN DIABETES SCREEN [facility] Start: 12-14-1992 Diabetes Screening Diabetes Screenin g [facility] Start: 12-14-1992 FECAL OCCULT BLOOD FECAL OCCULT BLOO D [facility] Start: 12-14-1992 Screening for malign ant neoplasm of colon [facility] Start: 12-14-1992 SIGMOIDOSCOPY SIGMOIDOSCOPY [facility] Start: 12-14-1982 Lipid panel Lipid Screening [facility] Start: 12-14-1982 LIPID SCREEN LIPID SCREEN [facility] Start: 12-14-1966 Urine microalbumin profile DTAP,TDAP,TD (1 - Tdap) [facility] Start: 12-14-1965 Anxiety Screening Anxiety Screening [facility] Start: 12-14-1965 Depression Screening Depression Scre ening [facility] Start: 12-14-1965 HEPATITIS C SCREENING HEPATITIS C [facility] Start: 12-14-1965 Hepatitis C screening Hepatitis C [facility] Start: 06-14-1948 COVID-19 VACCINE (#1) COVID-19 VACCI NE (#1) [facility] End: 10-20-2024 CT Abdomen and Pelvis W contrast IV CT ABD/PEL W IVCON Radiology Routine Pain of upper abdomen 1 Occurrences starting 09/21/2023 until 10/20/2024 [facility] Comment on above: 1 Occurrences starti ng 09/21/2023 until 10/20/2024 CT Abdomen and Pelvi s W contrast IV CT ABD/PEL W IVCON Radiology Routine Pain of upper abdomen 09/28/2023 2:39 PM EDT [facility] Work Phone: End: 09-20-2024 EGD DIAGNOSTIC EGD DIAGNOSTIC Endoscopy Routine Gastro-esophageal reflux disease without esophagitis 1 Occurrences starting 09/21/2023 until 09/20/2024 [facility] Work Phone: Comment on above: 1 Occurrences starti ng 09/21/2023 until 09/20/2024 Patient referral [facility] Work Phone: SURGICAL PATHOLOGY [facility] Work Phone: Comment on above: Release Upon Orderin g for 1 Occurrences starting 09/24/2023, 1 completed [facility] Immunizations Immunization Date Immunization Notes Care Provider Fa [facility] 01-25-2023 influenza virus vaccine, unspecified formulation Dalia Holguin APRN.SECURITY ASSESSOR Work Phone: [facility] 05-21-2020 Covid (Pfizer) Dr. Delma To nner Work Phone: [facility] 04-30-2020 Covid (Pfizer) Dr. Delma To nner Work Phone: [facility] Payers Date Payer Category Payer Self-pay [id number] 2012 Medicare [id number] 2012 Private Health Insurance [id number] 2012 Medicare [id number] 2012 Private Health Insurance [id number] Medicare [id number] Unknown [id number] Unknown [id number] Unknown [id number] [id number] Unknown [id number] Unknown [id number] [id number] [id number] Unknown [id number] [id number] [id number] Unknown [id number] [id number] Social History Date Type Detail Facility Start: 05-07-2021 End: 10-09-2022 Tobacco smoking status FLIS Unknown if ever smoked [facility] Work Phone: Start: 02-08-2018 Non-smoker [facility] Start: 1945 Sex Assigned At Male C [facility] Start: 10-09-2022 End: 09-20-2023 Tobacco smoking status NHIS Ex-smoker [facility] Start: 02-22-1961 End: 02-23-1968 History of tobacco use Current smoker [facility] Start: 02-22-1961 End: 02-23-1968 History of tobacco use Cigarette Smoker [facility] Start: 09-20-2023 End: 09-21-2023 Cigarettes smoked current (pack per day) - Reported 2 [facility] Start: 09-21-2023 End: 11-17-2023 Alcohol intake Current drinker of alcohol (finding) [facility] Start: 09-21-2023 End: 11-17-2023 Tobacco use panel [facility] National Score (1-10 0), lower number is lower risk 41 [facility] Start: 09-20-2023 Alcohol Comment 2-3 drinks per week. [facility] Start: 11-13-2021 Gender identity Identifies as male gender (finding) [facility] Start: 05-14-2024 Sex Male (finding) [facility] Goals Date Patient Goal Desired Activity /State Mental Status Date Assessment Result Facility 05-13-2021 Cognitive function Awake;Drowsy [facility] Work Phone: Clinical Notes 12-10-2021 to 11-17-2023 Rita Chaidez Jr., MD - 11/17/2023 1:29 PM Dalia Toscano APRN.SECURITY ASSESSOR - 10/06/2023 10:00 AM Kayla Mcghee RT(R) - 09/28/2023 2:20 PM EDT Note Date & Type Note Facility 11-17-2023 Note HNO ID: [id number] Author: RITA CHAIDEZ JR, MD Service: ? Author Type: Physician Type: Progress Notes Filed: 11/17/2023 13:30 Note Text: NEW PATIENT HISTORY AND PHYSICAL EXAM PATIENT INFO: Silvia Nicole II 77 year old REFERRING PROVIDER: Data Unavailable PCP: Delma Glover MD, MD HPI Silvia Nicole II is a 77 year old male refer for renal cyst. Has 7.4cm R lower pole bosniak 1 renal cyst. No pain. Found incidentally on ct scan. No luts. No fever. No uti. Review of Systems Constitutional: Negative. Respiratory: Negative. Cardiovascular: Negative. Gastrointestinal: Negative. Genitourinary: Negative. Skin: Negative. Neurological: Negative. Psychiatric/Behavioral: Negative. LAB: No results found for: CREAT No results found for: PSA No results found for: UGLUC, UBILI, UKET, SPGR, UHB, UPH, UPROT, UROBIL, NITRITES, UWBC, UCOLAP MEDICATIONS: esomeprazole (NEXIUM) 20 mg capsule Take 1 capsule by mouth once daily. SYNTHROID 100 mcg tablet Take 100 mcg by mouth once daily. acetaminophen (TYLENOL EXTRA STRENGTH) 500 mg tablet Take 500 mg by mouth every 8 hours as needed for pain. triamcinolone acetonide (KENALOG) 0.1 % cream Apply 1 application to affected area two times a day. cyclobenzaprine (FLEXERIL) 10 mg tablet Take 10 mg by mouth two times a day as needed for muscle spasm. rosuvastatin (CRESTOR) 10 mg tablet Take 10 mg by mouth daily at bedtime. IPRATROPIUM BROMIDE NASAL Use in the nose. HISTORIES PAST MEDICAL HISTORY Diagnosis Date Diastasis recti GERD (gastroesophageal reflux disease) silent reflux Glucose intolerance (impaired glucose tolerance) Hyperlipidemia Inguinal hernia right Seasonal allergies Subclinical hypothyroidism FAMILY HISTORY Problem Relation Age of Onset Melanoma Mother Alzheimer's Disease Mother Hyperlipidemia Mother Pancreatic Cancer Father Melanoma Maternal Grandfather SOCIAL HISTORY Social History Tobacco Use Smoking status: Former Current packs/day: 0.00 Average packs/day: 2.0 packs/day for 7.0 years (14.0 ttl pk-yrs) Types: Cigarettes Start date: 1961 Quit date: 1968 Years since quittin.7 Vaping Use Vaping status: Never Used Substance Use Topics Alcohol use: Yes Comment: 2-3 drinks per week. Drug use: Never PHYSICAL EXAMINATION BP 122/78 Pulse 71 SpO2 95% General appearance: Well appearing, alert, in no acute distress, and well-hydrated, well nourished Skin: Skin color, texture, turgor normal, no suspicious rashes or lesions Respiratory:+ effort Cardiovascular: Not examined GI: Normal abdominal exam, Abdomen soft, non-tender. No masses, organomegaly Musculoskeletal: normal ROM Neuro: No gross neurologic defecits Genitourinary: not examined ASSESSMENT: (N28.1) Renal cyst (primary encounter diagnosis) PLAN: 1 year Renal us prior Rita Chaidez Jr, MD [facility] 11-17-2023 History of Presen t illness Narrative NEW PATIENT HISTORY AND PHYSICAL EXAM PATIENT INFO: Silvia Nicole II 77 year old REFERRING PROVIDER: Data Unavailable PCP: Delma Glover MD, MD HPI Silvia Nicole II is a 77 year old male refer for renal cyst. Has 7.4cm R lower pole bosniak 1 renal cyst. No pain. Found incidentally on ct scan. No luts. No fever. No uti. Review of Systems Constitutional: Negative. Respiratory: Negative. Cardiovascular: Negative. Gastrointestinal: Negative. Genitourinary: Negative. Skin: Negative. Neurological: Negative. Psychiatric/Behavioral: Negative. LAB: No results found for: CREAT No results found for: PSA No results found for: UGLUC, UBILI, UKET, SPGR, UHB, UPH, UPROT, UROBIL, NITRITES, UWBC, UCOLAP MEDICATIONS: esomeprazole (NEXIUM) 20 mg capsule Take 1 capsule by mouth once daily. SYNTHROID 100 mcg tablet Take 100 mcg by mouth once daily. acetaminophen (TYLENOL EXTRA STRENGTH) 500 mg tablet Take 500 mg by mouth every 8 hours as needed for pain. triamcinolone acetonide (KENALOG) 0.1 % cream Apply 1 application to affected area two times a day. cyclobenzaprine (FLEXERIL) 10 mg tablet Take 10 mg by mouth two times a day as needed for muscle spasm. rosuvastatin (CRESTOR) 10 mg tablet Take 10 mg by mouth daily at bedtime. IPRATROPIUM BROMIDE NASAL Use in the nose. HISTORIES PAST MEDICAL HISTORY Diagnosis Date Diastasis recti GERD (gastroesophageal reflux disease) silent reflux Glucose intolerance (impaired glucose tolerance) Hyperlipidemia Inguinal hernia right Seasonal allergies Subclinical hypothyroidism FAMILY HISTORY Problem Relation Age of Onset Melanoma Mother Alzheimer's Disease Mother Hyperlipidemia Mother Pancreatic Cancer Father Melanoma Maternal Grandfather SOCIAL HISTORY Social History Tobacco Use Smoking status: Former Current packs/day: 0.00 Average packs/day: 2.0 packs/day for 7.0 years (14.0 ttl pk-yrs) Types: Cigarettes Start date: 1961 Quit date: 1968 Years since quittin.7 Vaping Use Vaping status: Never Used Substance Use Topics Alcohol use: Yes Comment: 2-3 drinks per week. Drug use: Never PHYSICAL EXAMINATION BP 122/78 Pulse 71 SpO2 95% General appearance: Well appearing, alert, in no acute distress, and well-hydrated, well nourished Skin: Skin color, texture, turgor normal, no suspicious rashes or lesions Respiratory:+ effort Cardiovascular: Not examined GI: Normal abdominal exam, Abdomen soft, non-tender. No masses, organomegaly Musculoskeletal: normal ROM Neuro: No gross neurologic defecits Genitourinary: not examined ASSESSMENT: (N28.1) Renal cyst (primary encounter diagnosis) PLAN: 1 year Renal us prior Rita Chaidez Jr, MD documented in this encounter [facility] 10-06-2023 History of Presen t illness Narrative FOLLOW UP VISIT - ENDOSCOPY Silvia Nicole II 1945 [id number] REFERRING PHYSICIAN: Trice Montes [address] [facility] [place] [address] Silvia Nicole II is a patient I am following for GERD and midline hernia. Dr. Montes performed upper endoscopy on 09/24/2023. The patient was found to have Impression: - Normal first portion of the duodenum and second portion of the duodenum. - Erythematous mucosa in the antrum. Biopsied. - Z-line normal but because of patient's complaint biopsies were taken, 36 cm from the incisors. Biopsied. Pathology demonstrated: FINAL DIAGNOSIS A. Stomach, antrum, biopsy: - Antral mucosa with no significant pathologic change. - No morphologic evidence of Helicobacter. B. Esophagogastric junction, biopsy: - Squamocolumnar junctional mucosa (cardia-type) with mild chronic inflammation. - No intestinal metaplasia identified. [facility] also underwent a CT scan d/t upper abd pain near his diastasis recti. There were no acute findings. Evidence of left inguinal hernia and a 7.4 cm kidney cyst. During the consult appt, [facility] had started taking prilosec, today he refers that he did that for 14 days and then switched to Nexium. He refers he still has excess phlegm in the larynx. We discussed following up with ENT. VITALS: There were no vitals taken for this visit. General: patient is alert, cooperative, pleasant and in no acute distress On examination, the abdomen is benign. ASSESSMENT/PLAN: 1. Gastroesophageal reflux disease with esophagitis without hemorrhage - ICD9: 530.81, 530.10, ICD10: K21.00 (primary diagnosis) - Continue Nexium 20mg daily for 3 mos 2. Cyst of right kidney - ICD9: 753.10, ICD10: N28.1 - CONSULT TO NEPHROLOGY- [facility] may call back in to get referral faxed to someone local. The operative findings and pathology report were reviewed with the patient, and the patient has had the opportunity to ask questions and have questions answered. If the patient notes any problems or changes in bowel function, the patient should contact me immediately. Otherwise I recommend follow up endoscopy as symptoms dictate. HM updated and recall letter generated. Discussed treatment plan and patient voices understanding. Patient's questions answered appropriately. Return to the office as needed Dalia Holguin APRN.LEELEE documented in this encounter [facility] 10-06-2023 Note HNO ID: [id number] Author: DALIA HOLGUIN APRN.CNP Service: ? Author Type: Nurse Practitioner Type: Progress Notes Filed: 10/06/2023 11:29 Note Text: FOLLOW UP VISIT - ENDOSCOPY Silvia Nicole II 1945 [id number] REFERRING PHYSICIAN: Trice Montes [address] [facility] [place] [phone] Silvia Nicole II is a patient I am following for GERD and midline hernia. Dr. Montes performed upper endoscopy on 09/24/2023. The patient was found to have Impression: - Normal first portion of the duodenum and second portion of the duodenum. - Erythematous mucosa in the antrum. Biopsied. - Z-line normal but because of patient's complaint biopsies were taken, 36 cm from the incisors. Biopsied. Pathology demonstrated: FINAL DIAGNOSIS A. Stomach, antrum, biopsy: - Antral mucosa with no significant pathologic change. - No morphologic evidence of Helicobacter. B. Esophagogastric junction, biopsy: - Squamocolumnar junctional mucosa (cardia-type) with mild chronic inflammation. - No intestinal metaplasia identified. [facility] also underwent a CT scan d/t upper abd pain near his diastasis recti. There were no acute findings. Evidence of left inguinal hernia and a 7.4 cm kidney cyst. During the consult appt, [facility] had started taking prilosec, today he refers that he did that for 14 days and then switched to Nexium. He refers he still has excess phlegm in the larynx. We discussed following up with ENT. VITALS: There were no vitals taken for this visit. General: patient is alert, cooperative, pleasant and in no acute distress On examination, the abdomen is benign. ASSESSMENT/PLAN: 1. Gastroesophageal reflux disease with esophagitis without hemorrhage - ICD9: 530.81, 530.10, ICD10: K21.00 (primary diagnosis) - Continue Nexium 20mg daily for 3 mos 2. Cyst of right kidney - ICD9: 753.10, ICD10: N28.1 - CONSULT TO NEPHROLOGY- [facility] may call back in to get referral faxed to someone local. The operative findings and pathology report were reviewed with the patient, and the patient has had the opportunity to ask questions and have questions answered. If the patient notes any problems or changes in bowel function, the patient should contact me immediately. Otherwise I recommend follow up endoscopy as symptoms dictate. HM updated and recall letter generated. Discussed treatment plan and patient voices understanding. Patient's questions answered appropriately. Return to the office as needed Dalia Holguin APRN.LEELEE [place] 09-28-2023 History of Presen t illness Narrative Radiology Service Progress Note DATE OF SERVICE: September 28, 2023 TIME: 2:45 PM PATIENT IDENTITY VERIFICATION COMPLETED USING TWO (2) STANDARD IDENTIFIERS: Name and Date of confirmed by patient verbally. FALL SCREENING: Has the patient had 2 falls in the last year or 1 fall with injury or currently using an Ambulatory Assistive Device (Walker, Cane, Wheelchair, Crutches, etc.)? No PATIENT GENDER DATA: Male PATIENT RELEVANT IMPLANT DATA REVIEWED: Yes PATIENT PRESENTS WITH AN IMPLANTABLE OR ATTACHED SKATING RINK ICE MAKER: No ALLERGIES: Reviewed and unchanged CONTRAST ALLERGY: NO. EXAM: CT -CONTRAST INDUCED NEPHROPATHY RISK FACTORS: Patient age > 60 years CREATININE: No results found for: CREAT, EGFROTH, EGFRAA P.O.C.T. RESULTS: POC done: Yes, See Lab Tab September 28, 2023 TREATMENT: N/A PERIPHERAL IV DATA: Ambulatory: A peripheral IV was started in the Right hand with a Angio cath: 22 gauge. RADIOLOGY DEPARTMENT: CT; Exam(s) Completed: Abdomen/Pelvis SIGNATURE: RT Apple(Isaac) PATIENT NAME: Silvia Nicole II DATE: September 28, 2023 TIME: 2:45 PM documented in this encounter [facility] 09-28-2023 Note HNO ID: [id number] Author: KAYLA CABRERA RT(R) Service: ? Author Type: Wardrobe Manager Type: Progress Notes Filed: 09/28/2023 14:46 Note Text: Radiology Service Progress Note DATE OF SERVICE: September 28, 2023 TIME: 2:45 PM PATIENT IDENTITY VERIFICATION COMPLETED USING TWO (2) STANDARD IDENTIFIERS: Name and Date of confirmed by patient verbally. FALL SCREENING: Has the patient had 2 falls in the last year or 1 fall with injury or currently using an Ambulatory Assistive Device (Walker, Cane, Wheelchair, Crutches, etc.)? No PATIENT GENDER DATA: Male PATIENT RELEVANT IMPLANT DATA REVIEWED: Yes PATIENT PRESENTS WITH AN IMPLANTABLE OR ATTACHED SKATING RINK ICE MAKER: No ALLERGIES: Reviewed and unchanged CONTRAST ALLERGY: NO. EXAM: CT -CONTRAST INDUCED NEPHROPATHY RISK FACTORS: Patient age > 60 years CREATININE: No results found for: CREAT, EGFROTH, EGFRAA P.O.C.T. RESULTS: POC done: Yes, See Lab Tab September 28, 2023 TREATMENT: N/A PERIPHERAL IV DATA: Ambulatory: A peripheral IV was started in the Right hand with a Angio cath: 22 gauge. RADIOLOGY DEPARTMENT: CT; Exam(s) Completed: Abdomen/Pelvis SIGNATURE: RT Apple(R) PATIENT NAME: Silvia Nicole II DATE: September 28, 2023 TIME: 2:45 PM [place] 09-24-2023 Attending History and physical note UPDATED PROCEDURAL SEDATION HISTORY AND PHYSICAL EXAMINATION SERVICE DATE: 09/24/2023 SERVICE TIME: 12:59 PHYSICAL EXAM MUST BE COMPLETED ON ADMISSION PROCEDURE: EGD biopsies Procedure Indications: heartburn The History and Physical (completed in the past 30 days) has been reviewed and the patient has been examined. The contents accurately reflect the patient's condition with the following additions or revisions since the H&P was completed. ASA Class: ASA Class: Patient with mild systemic disease Examination indicates no changes. AIRWAY: Airway Visualization of Uvula: Yes Mouth opening greater than 2 fingerbreadths: Yes Neck Full Range of Motion: Yes LUNGS: Lungs clear to auscultation CARDIAC: Regular rhythm,Regular rate Provisional Diagnosis/Treatment Plan: EGD possible biopsies Sedation Goal: Moderate This H&P can be found in the Electronic Medical Record. SIGNATURE: Trice Montes MD PATIENT NAME: Silvia Nicole II DATE: September 24, 2023 TIME: 1:06 PM Source Note - Trice Montes MD - 09/24/2023 2:00 PM EDT HISTORY AND PHYSICAL Silvia Nicole II : 1945 REFERRING PHYSICIAN: No referring provider defined for this encounter. CHIEF COMPLAINT: Patient presents with: Consult: Consultation for GERD and midline hernia. HPI: Silvia is a 77 year old male referred for endoscopy. Silvia notes dull upper abd pain . He denies any change in bowel habits, weight changes, blood in stools, black tarry stools or abdominal pain. [facility] notes upper GI complaints. 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 He refers he notices a cough that is worse after laying down and he is always clearing his throat. He states 40 years ago he developed a raspy voice and has had it since- refers he used to use Maalox frequently In 2009 he noticed a bulge when lifting legs in the supine position or doing a crunch that has increasingly gotten larger- not painful C/O a dull ach near diastasis recti area that has gotten worse over the last 2 weeks. [facility] refers he has been doing a lot of heavy lifting over those 2 weeks with home renovations. [facility] just recently started taking omeprazole for the 1st time and noted minimal relief. States concern for possible duodenal ulcer d/t current stress of home lisbeth States he gets nausea but hasn't vomited in over 20 years Silvia has undergone prior endoscopy. Not due for repeat colonoscopy for 3 more years & having no issues. [facility] has never had EGD. CURRENT MEDICATIONS Current Outpatient Medications Medication Sig SYNTHROID 100 mcg tablet Take 100 mcg by mouth once daily. acetaminophen (TYLENOL EXTRA STRENGTH) 500 mg tablet Take 500 mg by mouth every 8 hours as needed for pain. triamcinolone acetonide (KENALOG) 0.1 % cream Apply 1 application to affected area two times a day. cyclobenzaprine (FLEXERIL) 10 mg tablet Take 10 mg by mouth two times a day as needed for muscle spasm. rosuvastatin (CRESTOR) 10 mg tablet Take 10 mg by mouth daily at bedtime. IPRATROPIUM BROMIDE NASAL Use in the nose. omeprazole (PRILOSEC) 40 mg capsule Take 40 mg by mouth once daily. iv contrast (will be provided with radiology test) CT ABD/PEL -Inject, intravenously, once for 1 dose.No IV access, insert saline lock prior to the beginning of sedation, infusion, injection of imaging exam. Discontinue saline lock post exam. If Pt. has a central line or IVAD, may access for administration according to line specific nursing protocol. Once exam is complete flush line and de-access according to line specific nursing protocol in the CT contrast administration guidelines link. enteric contrast (will be provided with radiology test) For CT ABD/PEL W IVCON Routine order Administer, As Directed One Time Only, via Oral, Rectal, both Oral and Rectal, Enteric Tube, Stoma or Indwelling Catheter, Enteric Contrast as designated per enteric contrast guidelines fluticasone (FLONASE) 50 mcg/actuation nasal spray Use 1 Atkinson in each nostril once daily. No current facility-administered medications for this visit. ALLERGIES: Decongestant Tablet, Naprosyn [Naproxen], and Ragweed Pollen PAST MEDICAL HISTORY PAST MEDICAL HISTORY Diagnosis Date Diastasis recti GERD (gastroesophageal reflux disease) silent reflux Glucose intolerance (impaired glucose tolerance) Hyperlipidemia Inguinal hernia right Seasonal allergies Subclinical hypothyroidism PAST SURGICAL HISTORY PAST SURGICAL HISTORY Procedure Laterality Date ARTHRODESIS ANTERIOR SPINAL DFRM 2-3 VRT SGM 2005 L5-S1, anterior and posterior ARTHROSCOPY KNEE DIAGNOSTIC W/WO SYNOVIAL BX SPX Left 1991 I&D PERIANAL ABSCESS 1982 LEFT HEART CATH,PERCUTANEOUS Dr. Mary REPAIR ING HERNIA,5+Y/O,REDUCIBL Right 1967 FAMILY HISTORY FAMILY HISTORY Problem Relation Age of Onset Melanoma Mother Alzheimer's Disease Mother Hyperlipidemia Mother Pancreatic Cancer Father Melanoma Maternal Grandfather SOCIAL HISTORY Social History Tobacco Use Smoking status: Former Packs/day: 2.00 Years: 7.00 Additional pack years: 0.00 Total pack years: 14.00 Types: Cigarettes Quit date: 1968 Years since quittin.6 Vaping Use Vaping Use: Never used Substance Use Topics Alcohol use: Yes Comment: 2-3 drinks per week. Drug use: Never REVIEW OF SYMPTOMS: The review of systems data was entered by the nurse and reviewed by dc Nursing Notes: Tangela Nava RN 09/21/2023 12:20 PM Signed REVIEW OF SYSTEMS: General: The patient denies fatigue, denies weight loss, denies weight gain, denies feeling hot, and denies feelings of cold. Eyes: The patient denies glaucoma, denies eye injury/surgery, wears glasses or contacts. Ear/Nose/Throat: The patient NOTES allergies, NOTES hayfever, NOTES ear infections, and NOTES bloody noses. Cardiovascular: The patient NOTES chest pain, denies heart disease, denies high blood pressure,denies cardiac stent, denies prior heart attack, denies irregular heart beat, denies high cholesterol, denies poor circulation, denies heart failure, other cardiac issues, denies claudication, denies cold feet, denies peripheral arterial stent. Respiratory: The patient denies tuberculosis, NOTES pneumonia, NOTES frequent cough, denies pulmonary embolism, NOTES shortness of breath, and denies coughing up blood. Gastrointestinal: The patient denies difficulty swallowing, NOTES acid reflux, denies ulcers, denies vomiting, denies jaundice/hepatitis, denies gallbladder problems, denies black or tarry stools, NOTES hemorrhoids, denies bleeding from rectum, denies diverticulitis, denies constipation, denies diarrhea, denies loss of stool control, and NOTES hernias. Kidney/Bladder: The patient NOTES kidney stones, NOTES urine infections, and denies bloody urine. Skin: The patient denies a history of skin cancer, denies bleeding/changing moles, and denies a history of skin rash. Neurologic: The patient denies a history of epilepsy/convulsions, NOTES headaches, denies head/spinal injuries, and denies stroke/TIA. Psychiatric: The patient denies psychiatric medications, denies depression, and denies voices, denies substance abuse. Endocrine: The patient NOTES thyroid disorders, denies diabetes, and denies hormonal problems. Hematologic: The patient denies a history of bruising, denies bleeding, and denies anemia, denies blood clots. Infections: The patient NOTES a history of measles and mumps, denies rheumatic fever, and denies sexually transmitted diseases. Musculoskeletal: The patient NOTES back pain/injury, denies back problems, NOTES sciatica, NOTES knee/foot trouble, NOTES arthritis, or denies gout. When was patient's last Mammogram screening? N/A Last Colonoscopy: 2021 or 2022 Tangela Nava RN PHYSICAL EXAMINATION: General: The patient is 77 year old, male well nourished, well hydrated in no acute distress. The patient is oriented to time, place, and person. VITALS: Blood pressure 112/68, pulse 94, temperature 36.6 C (97.8 F), height 175.3 cm (5' 9), weight 82.6 kg (182 lb 3.2 oz), SpO2 97%. Body mass index is 26.91 kg/m . HEENT: Normal cephalic, ataumatic, pupils are equally round, sclera are anicteric, mucous membranes are moist, oropharynx is clear. Neck has no masses, asymmetry or lymphadenopathy. Respiratory: Clear to auscultation and percussion. Normal respiratory excursion and pattern. Cardiac: Examination is regular rate and rhythm. Normal S1/S2 Abdominal exam: Soft, nontender. No hepatosplenomegaly. +midline bulge when engaging the core muscles. This resolves when patient is supine & relaxed. No redness, no pain with palpation Extremities: no clubbing, cyanosis or edema. No adenopathy. LABORATORY VALUES: As Noted RADIOLOGIC STUDIES: As Noted Assessment IMPRESSION: GERD, upper abdominal pain, throat clearing PLAN: I have reviewed my findings with the surgeon. Will plan for upper endoscopy. We discussed the risks and benefits of the planned endoscopy. I have informed the patient that complications can occur including failure to complete the endoscopy and perforation. Silvia had the opportunity to ask questions concerning the planned endoscopy. My staff has also explained the procedure to the patient in understandable terms and has given the patient printed material concerning the procedure. Silvia freely consents to surgery. I have explained to the patient the difference between IV conscious sedation and MAC anesthesia - and I have offered either, according to the patient's wishes. I have explained that with IV conscious sedation there is no anesthesia provider available and therefore there is a limitation of the amount of IV medications that can be given and that the patient may wake up in the middle of the procedure and/or experience pain/discomfort during the procedure. Further discussion was done and the patient was given the opportunity to ask questions and all questions were answered. Silvia chooses IV conscious sedation Silvia was counseled that if there are changes in his/her medical condition, to let the office know if surgery should proceed. If there are changes in patient's medical condition from time of this encounter to the day of the procedure that preclude anesthesia, patient may have procedure cancelled for patient's safety. After obtaining outside lab work, will get a CT scan of abd/pelv to r/o any other cause of the diffuse upper abd pain. labs completed on 09/08/23 with a creatinine of 1.14 & GFR 66. Diagnoses: (K21.9) Gastro-esophageal reflux disease without esophagitis (primary encounter diagnosis) (R10.10) Pain of upper abdomen (R09.89) Throat clearing Dalia Holguin APRN.SECURITY ASSESSOR [facility] [facility] 09[facility] History and physical note HISTORY AND PHYSICAL Silvia Nicole II : 1945 REFERRING PHYSICIAN: No referring provider defined for this encounter. CHIEF COMPLAINT: Patient presents with: Consult: Consultation for GERD and midline hernia. HPI: Silvia is a 77 year old male referred for endoscopy. Silvia notes dull upper abd pain . He denies any change in bowel habits, weight changes, blood in stools, black tarry stools or abdominal pain. [facility] notes upper GI complaints. 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 He refers he notices a cough that is worse after laying down and he is always clearing his throat. He states 40 years ago he developed a raspy voice and has had it since- refers he used to use Maalox frequently In 2009 he noticed a bulge when lifting legs in the supine position or doing a crunch that has increasingly gotten larger- not painful C/O a dull ach near diastasis recti area that has gotten worse over the last 2 weeks. [facility] refers he has been doing a lot of heavy lifting over those 2 weeks with home renovations. [facility] just recently started taking omeprazole for the 1st time and noted minimal relief. States concern for possible duodenal ulcer d/t current stress of home lisbeth States he gets nausea but hasn't vomited in over 20 years Silvia has undergone prior endoscopy. Not due for repeat colonoscopy for 3 more years & having no issues. [facility] has never had EGD. CURRENT MEDICATIONS Current Outpatient Medications Medication Sig SYNTHROID 100 mcg tablet Take 100 mcg by mouth once daily. acetaminophen (TYLENOL EXTRA STRENGTH) 500 mg tablet Take 500 mg by mouth every 8 hours as needed for pain. triamcinolone acetonide (KENALOG) 0.1 % cream Apply 1 application to affected area two times a day. cyclobenzaprine (FLEXERIL) 10 mg tablet Take 10 mg by mouth two times a day as needed for muscle spasm. rosuvastatin (CRESTOR) 10 mg tablet Take 10 mg by mouth daily at bedtime. IPRATROPIUM BROMIDE NASAL Use in the nose. omeprazole (PRILOSEC) 40 mg capsule Take 40 mg by mouth once daily. iv contrast (will be provided with radiology test) CT ABD/PEL -Inject, intravenously, once for 1 dose.No IV access, insert saline lock prior to the beginning of sedation, infusion, injection of imaging exam. Discontinue saline lock post exam. If Pt. has a central line or IVAD, may access for administration according to line specific nursing protocol. Once exam is complete flush line and de-access according to line specific nursing protocol in the CT contrast administration guidelines link. enteric contrast (will be provided with radiology test) For CT ABD/PEL W IVCON Routine order Administer, As Directed One Time Only, via Oral, Rectal, both Oral and Rectal, Enteric Tube, Stoma or Indwelling Catheter, Enteric Contrast as designated per enteric contrast guidelines fluticasone (FLONASE) 50 mcg/actuation nasal spray Use 1 Atkinson in each nostril once daily. No current facility-administered medications for this visit. ALLERGIES: Decongestant Tablet, Naprosyn [Naproxen], and Ragweed Pollen PAST MEDICAL HISTORY PAST MEDICAL HISTORY Diagnosis Date Diastasis recti GERD (gastroesophageal reflux disease) silent reflux Glucose intolerance (impaired glucose tolerance) Hyperlipidemia Inguinal hernia right Seasonal allergies Subclinical hypothyroidism PAST SURGICAL HISTORY PAST SURGICAL HISTORY Procedure Laterality Date ARTHRODESIS ANTERIOR SPINAL DFRM 2-3 VRT SGM 2005 L5-S1, anterior and posterior ARTHROSCOPY KNEE DIAGNOSTIC W/WO SYNOVIAL BX SPX Left 1991 I&D PERIANAL ABSCESS 1982 LEFT HEART CATH,PERCUTANEOUS Dr. Mary REPAIR ING HERNIA,5+Y/O,REDUCIBL Right 1967 FAMILY HISTORY FAMILY HISTORY Problem Relation Age of Onset Melanoma Mother Alzheimer's Disease Mother Hyperlipidemia Mother Pancreatic Cancer Father Melanoma Maternal Grandfather SOCIAL HISTORY Social History Tobacco Use Smoking status: Former Packs/day: 2.00 Years: 7.00 Additional pack years: 0.00 Total pack years: 14.00 Types: Cigarettes Quit date: 1968 Years since quittin.6 Vaping Use Vaping Use: Never used Substance Use Topics Alcohol use: Yes Comment: 2-3 drinks per week. Drug use: Never REVIEW OF SYMPTOMS: The review of systems data was entered by the nurse and reviewed by dc Nursing Notes: Tangela Nava RN 09/21/2023 12:20 PM Signed REVIEW OF SYSTEMS: General: The patient denies fatigue, denies weight loss, denies weight gain, denies feeling hot, and denies feelings of cold. Eyes: The patient denies glaucoma, denies eye injury/surgery, wears glasses or contacts. Ear/Nose/Throat: The patient NOTES allergies, NOTES hayfever, NOTES ear infections, and NOTES bloody noses. Cardiovascular: The patient NOTES chest pain, denies heart disease, denies high blood pressure,denies cardiac stent, denies prior heart attack, denies irregular heart beat, denies high cholesterol, denies poor circulation, denies heart failure, other cardiac issues, denies claudication, denies cold feet, denies peripheral arterial stent. Respiratory: The patient denies tuberculosis, NOTES pneumonia, NOTES frequent cough, denies pulmonary embolism, NOTES shortness of breath, and denies coughing up blood. Gastrointestinal: The patient denies difficulty swallowing, NOTES acid reflux, denies ulcers, denies vomiting, denies jaundice/hepatitis, denies gallbladder problems, denies black or tarry stools, NOTES hemorrhoids, denies bleeding from rectum, denies diverticulitis, denies constipation, denies diarrhea, denies loss of stool control, and NOTES hernias. Kidney/Bladder: The patient NOTES kidney stones, NOTES urine infections, and denies bloody urine. Skin: The patient denies a history of skin cancer, denies bleeding/changing moles, and denies a history of skin rash. Neurologic: The patient denies a history of epilepsy/convulsions, NOTES headaches, denies head/spinal injuries, and denies stroke/TIA. Psychiatric: The patient denies psychiatric medications, denies depression, and denies voices, denies substance abuse. Endocrine: The patient NOTES thyroid disorders, denies diabetes, and denies hormonal problems. Hematologic: The patient denies a history of bruising, denies bleeding, and denies anemia, denies blood clots. Infections: The patient NOTES a history of measles and mumps, denies rheumatic fever, and denies sexually transmitted diseases. Musculoskeletal: The patient NOTES back pain/injury, denies back problems, NOTES sciatica, NOTES knee/foot trouble, NOTES arthritis, or denies gout. When was patient's last Mammogram screening? N/A Last Colonoscopy: 2021 or 2022 Tangela Nava RN PHYSICAL EXAMINATION: General: The patient is 77 year old, male well nourished, well hydrated in no acute distress. The patient is oriented to time, place, and person. VITALS: Blood pressure 112/68, pulse 94, temperature 36.6 C (97.8 F), height 175.3 cm (5' 9), weight 82.6 kg (182 lb 3.2 oz), SpO2 97%. Body mass index is 26.91 kg/m . HEENT: Normal cephalic, ataumatic, pupils are equally round, sclera are anicteric, mucous membranes are moist, oropharynx is clear. Neck has no masses, asymmetry or lymphadenopathy. Respiratory: Clear to auscultation and percussion. Normal respiratory excursion and pattern. Cardiac: Examination is regular rate and rhythm. Normal S1/S2 Abdominal exam: Soft, nontender. No hepatosplenomegaly. +midline bulge when engaging the core muscles. This resolves when patient is supine & relaxed. No redness, no pain with palpation Extremities: no clubbing, cyanosis or edema. No adenopathy. LABORATORY VALUES: As Noted RADIOLOGIC STUDIES: As Noted Assessment IMPRESSION: GERD, upper abdominal pain, throat clearing PLAN: I have reviewed my findings with the surgeon. Will plan for upper endoscopy. We discussed the risks and benefits of the planned endoscopy. I have informed the patient that complications can occur including failure to complete the endoscopy and perforation. Silvia had the opportunity to ask questions concerning the planned endoscopy. My staff has also explained the procedure to the patient in understandable terms and has given the patient printed material concerning the procedure. Silvia freely consents to surgery. I have explained to the patient the difference between IV conscious sedation and MAC anesthesia - and I have offered either, according to the patient's wishes. I have explained that with IV conscious sedation there is no anesthesia provider available and therefore there is a limitation of the amount of IV medications that can be given and that the patient may wake up in the middle of the procedure and/or experience pain/discomfort during the procedure. Further discussion was done and the patient was given the opportunity to ask questions and all questions were answered. Silvia chooses IV conscious sedation Silvia was counseled that if there are changes in his/her medical condition, to let the office know if surgery should proceed. If there are changes in patient's medical condition from time of this encounter to the day of the procedure that preclude anesthesia, patient may have procedure cancelled for patient's safety. After obtaining outside lab work, will get a CT scan of abd/pelv to r/o any other cause of the diffuse upper abd pain. labs completed on 09/08/23 with a creatinine of 1.14 & GFR 66. Diagnoses: (K21.9) Gastro-esophageal reflux disease without esophagitis (primary encounter diagnosis) (R10.10) Pain of upper abdomen (R09.89) Throat clearing Dalia Holguin APRN.SECURITY ASSESSOR [facility] 09-24-2023 History and physical note UPDATED PROCEDURAL SEDATION HISTORY AND PHYSICAL EXAMINATION SERVICE DATE: 09/24/2023 SERVICE TIME: 12:59 PHYSICAL EXAM MUST BE COMPLETED ON ADMISSION PROCEDURE: EGD biopsies Procedure Indications: heartburn The History and Physical (completed in the past 30 days) has been reviewed and the patient has been examined. The contents accurately reflect the patient's condition with the following additions or revisions since the H&P was completed. ASA Class: ASA Class: Patient with mild systemic disease Examination indicates no changes. AIRWAY: Airway Visualization of Uvula: Yes Mouth opening greater than 2 fingerbreadths: Yes Neck Full Range of Motion: Yes LUNGS: Lungs clear to auscultation CARDIAC: Regular rhythm,Regular rate Provisional Diagnosis/Treatment Plan: EGD possible biopsies Sedation Goal: Moderate This H&P can be found in the Electronic Medical Record. SIGNATURE: Trice Montes MD PATIENT NAME: Silvia Nicole II DATE: September 24, 2023 TIME: 1:06 PM Source Note - Trice Montes MD - 09/24/2023 2:00 PM EDT HISTORY AND PHYSICAL Silvia Nicole II : 1945 REFERRING PHYSICIAN: No referring provider defined for this encounter. CHIEF COMPLAINT: Patient presents with: Consult: Consultation for GERD and midline hernia. HPI: Silvia is a 77 year old male referred for endoscopy. Silvia notes dull upper abd pain . He denies any change in bowel habits, weight changes, blood in stools, black tarry stools or abdominal pain. [facility] notes upper GI complaints. 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 He refers he notices a cough that is worse after laying down and he is always clearing his throat. He states 40 years ago he developed a raspy voice and has had it since- refers he used to use Maalox frequently In 2009 he noticed a bulge when lifting legs in the supine position or doing a crunch that has increasingly gotten larger- not painful C/O a dull ach near diastasis recti area that has gotten worse over the last 2 weeks. [facility] refers he has been doing a lot of heavy lifting over those 2 weeks with home renovations. [facility] just recently started taking omeprazole for the 1st time and noted minimal relief. States concern for possible duodenal ulcer d/t current stress of home lisbeth States he gets nausea but hasn't vomited in over 20 years Silvia has undergone prior endoscopy. Not due for repeat colonoscopy for 3 more years & having no issues. [facility] has never had EGD. CURRENT MEDICATIONS Current Outpatient Medications Medication Sig SYNTHROID 100 mcg tablet Take 100 mcg by mouth once daily. acetaminophen (TYLENOL EXTRA STRENGTH) 500 mg tablet Take 500 mg by mouth every 8 hours as needed for pain. triamcinolone acetonide (KENALOG) 0.1 % cream Apply 1 application to affected area two times a day. cyclobenzaprine (FLEXERIL) 10 mg tablet Take 10 mg by mouth two times a day as needed for muscle spasm. rosuvastatin (CRESTOR) 10 mg tablet Take 10 mg by mouth daily at bedtime. IPRATROPIUM BROMIDE NASAL Use in the nose. omeprazole (PRILOSEC) 40 mg capsule Take 40 mg by mouth once daily. iv contrast (will be provided with radiology test) CT ABD/PEL -Inject, intravenously, once for 1 dose.No IV access, insert saline lock prior to the beginning of sedation, infusion, injection of imaging exam. Discontinue saline lock post exam. If Pt. has a central line or IVAD, may access for administration according to line specific nursing protocol. Once exam is complete flush line and de-access according to line specific nursing protocol in the CT contrast administration guidelines link. enteric contrast (will be provided with radiology test) For CT ABD/PEL W IVCON Routine order Administer, As Directed One Time Only, via Oral, Rectal, both Oral and Rectal, Enteric Tube, Stoma or Indwelling Catheter, Enteric Contrast as designated per enteric contrast guidelines fluticasone (FLONASE) 50 mcg/actuation nasal spray Use 1 Atkinson in each nostril once daily. No current facility-administered medications for this visit. ALLERGIES: Decongestant Tablet, Naprosyn [Naproxen], and Ragweed Pollen PAST MEDICAL HISTORY PAST MEDICAL HISTORY Diagnosis Date Diastasis recti GERD (gastroesophageal reflux disease) silent reflux Glucose intolerance (impaired glucose tolerance) Hyperlipidemia Inguinal hernia right Seasonal allergies Subclinical hypothyroidism PAST SURGICAL HISTORY PAST SURGICAL HISTORY Procedure Laterality Date ARTHRODESIS ANTERIOR SPINAL DFRM 2-3 VRT SGM 2005 L5-S1, anterior and posterior ARTHROSCOPY KNEE DIAGNOSTIC W/WO SYNOVIAL BX SPX Left 1991 I&D PERIANAL ABSCESS 1982 LEFT HEART CATH,PERCUTANEOUS Dr. Mary REPAIR ING HERNIA,5+Y/O,REDUCIBL Right 1967 FAMILY HISTORY FAMILY HISTORY Problem Relation Age of Onset Melanoma Mother Alzheimer's Disease Mother Hyperlipidemia Mother Pancreatic Cancer Father Melanoma Maternal Grandfather SOCIAL HISTORY Social History Tobacco Use Smoking status: Former Packs/day: 2.00 Years: 7.00 Additional pack years: 0.00 Total pack years: 14.00 Types: Cigarettes Quit date: 1968 Years since quittin.6 Vaping Use Vaping Use: Never used Substance Use Topics Alcohol use: Yes Comment: 2-3 drinks per week. Drug use: Never REVIEW OF SYMPTOMS: The review of systems data was entered by the nurse and reviewed by dc Nursing Notes: Tangela Nava RN 09/21/2023 12:20 PM Signed REVIEW OF SYSTEMS: General: The patient denies fatigue, denies weight loss, denies weight gain, denies feeling hot, and denies feelings of cold. Eyes: The patient denies glaucoma, denies eye injury/surgery, wears glasses or contacts. Ear/Nose/Throat: The patient NOTES allergies, NOTES hayfever, NOTES ear infections, and NOTES bloody noses. Cardiovascular: The patient NOTES chest pain, denies heart disease, denies high blood pressure,denies cardiac stent, denies prior heart attack, denies irregular heart beat, denies high cholesterol, denies poor circulation, denies heart failure, other cardiac issues, denies claudication, denies cold feet, denies peripheral arterial stent. Respiratory: The patient denies tuberculosis, NOTES pneumonia, NOTES frequent cough, denies pulmonary embolism, NOTES shortness of breath, and denies coughing up blood. Gastrointestinal: The patient denies difficulty swallowing, NOTES acid reflux, denies ulcers, denies vomiting, denies jaundice/hepatitis, denies gallbladder problems, denies black or tarry stools, NOTES hemorrhoids, denies bleeding from rectum, denies diverticulitis, denies constipation, denies diarrhea, denies loss of stool control, and NOTES hernias. Kidney/Bladder: The patient NOTES kidney stones, NOTES urine infections, and denies bloody urine. Skin: The patient denies a history of skin cancer, denies bleeding/changing moles, and denies a history of skin rash. Neurologic: The patient denies a history of epilepsy/convulsions, NOTES headaches, denies head/spinal injuries, and denies stroke/TIA. Psychiatric: The patient denies psychiatric medications, denies depression, and denies voices, denies substance abuse. Endocrine: The patient NOTES thyroid disorders, denies diabetes, and denies hormonal problems. Hematologic: The patient denies a history of bruising, denies bleeding, and denies anemia, denies blood clots. Infections: The patient NOTES a history of measles and mumps, denies rheumatic fever, and denies sexually transmitted diseases. Musculoskeletal: The patient NOTES back pain/injury, denies back problems, NOTES sciatica, NOTES knee/foot trouble, NOTES arthritis, or denies gout. When was patient's last Mammogram screening? N/A Last Colonoscopy: 2021 or 2022 Tangela Nava RN PHYSICAL EXAMINATION: General: The patient is 77 year old, male well nourished, well hydrated in no acute distress. The patient is oriented to time, place, and person. VITALS: Blood pressure 112/68, pulse 94, temperature 36.6 C (97.8 F), height 175.3 cm (5' 9), weight 82.6 kg (182 lb 3.2 oz), SpO2 97%. Body mass index is 26.91 kg/m . HEENT: Normal cephalic, ataumatic, pupils are equally round, sclera are anicteric, mucous membranes are moist, oropharynx is clear. Neck has no masses, asymmetry or lymphadenopathy. Respiratory: Clear to auscultation and percussion. Normal respiratory excursion and pattern. Cardiac: Examination is regular rate and rhythm. Normal S1/S2 Abdominal exam: Soft, nontender. No hepatosplenomegaly. +midline bulge when engaging the core muscles. This resolves when patient is supine & relaxed. No redness, no pain with palpation Extremities: no clubbing, cyanosis or edema. No adenopathy. LABORATORY VALUES: As Noted RADIOLOGIC STUDIES: As Noted Assessment IMPRESSION: GERD, upper abdominal pain, throat clearing PLAN: I have reviewed my findings with the surgeon. Will plan for upper endoscopy. We discussed the risks and benefits of the planned endoscopy. I have informed the patient that complications can occur including failure to complete the endoscopy and perforation. Silvia had the opportunity to ask questions concerning the planned endoscopy. My staff has also explained the procedure to the patient in understandable terms and has given the patient printed material concerning the procedure. Silvia freely consents to surgery. I have explained to the patient the difference between IV conscious sedation and MAC anesthesia - and I have offered either, according to the patient's wishes. I have explained that with IV conscious sedation there is no anesthesia provider available and therefore there is a limitation of the amount of IV medications that can be given and that the patient may wake up in the middle of the procedure and/or experience pain/discomfort during the procedure. Further discussion was done and the patient was given the opportunity to ask questions and all questions were answered. Silvia chooses IV conscious sedation Silvia was counseled that if there are changes in his/her medical condition, to let the office know if surgery should proceed. If there are changes in patient's medical condition from time of this encounter to the day of the procedure that preclude anesthesia, patient may have procedure cancelled for patient's safety. After obtaining outside lab work, will get a CT scan of abd/pelv to r/o any other cause of the diffuse upper abd pain. labs completed on 09/08/23 with a creatinine of 1.14 & GFR 66. Diagnoses: (K21.9) Gastro-esophageal reflux disease without esophagitis (primary encounter diagnosis) (R10.10) Pain of upper abdomen (R09.89) Throat clearing Dalia Holguin APRN.SECURITY ASSESSOR HISTORY AND PHYSICAL Silvia Nicole II : 1945 REFERRING PHYSICIAN: No referring provider defined for this encounter. CHIEF COMPLAINT: Patient presents with: Consult: Consultation for GERD and midline hernia. HPI: Silvia is a 77 year old male referred for endoscopy. Silvia notes dull upper abd pain . He denies any change in bowel habits, weight changes, blood in stools, black tarry stools or abdominal pain. [facility] notes upper GI complaints. 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 He refers he notices a cough that is worse after laying down and he is always clearing his throat. He states 40 years ago he developed a raspy voice and has had it since- refers he used to use Maalox frequently In 2009 he noticed a bulge when lifting legs in the supine position or doing a crunch that has increasingly gotten larger- not painful C/O a dull ach near diastasis recti area that has gotten worse over the last 2 weeks. [facility] refers he has been doing a lot of heavy lifting over those 2 weeks with home renovations. [facility] just recently started taking omeprazole for the 1st time and noted minimal relief. States concern for possible duodenal ulcer d/t current stress of home lisbeth States he gets nausea but hasn't vomited in over 20 years Silvia has undergone prior endoscopy. Not due for repeat colonoscopy for 3 more years & having no issues. [facility] has never had EGD. CURRENT MEDICATIONS Current Outpatient Medications Medication Sig SYNTHROID 100 mcg tablet Take 100 mcg by mouth once daily. acetaminophen (TYLENOL EXTRA STRENGTH) 500 mg tablet Take 500 mg by mouth every 8 hours as needed for pain. triamcinolone acetonide (KENALOG) 0.1 % cream Apply 1 application to affected area two times a day. cyclobenzaprine (FLEXERIL) 10 mg tablet Take 10 mg by mouth two times a day as needed for muscle spasm. rosuvastatin (CRESTOR) 10 mg tablet Take 10 mg by mouth daily at bedtime. IPRATROPIUM BROMIDE NASAL Use in the nose. omeprazole (PRILOSEC) 40 mg capsule Take 40 mg by mouth once daily. iv contrast (will be provided with radiology test) CT ABD/PEL -Inject, intravenously, once for 1 dose.No IV access, insert saline lock prior to the beginning of sedation, infusion, injection of imaging exam. Discontinue saline lock post exam. If Pt. has a central line or IVAD, may access for administration according to line specific nursing protocol. Once exam is complete flush line and de-access according to line specific nursing protocol in the CT contrast administration guidelines link. enteric contrast (will be provided with radiology test) For CT ABD/PEL W IVCON Routine order Administer, As Directed One Time Only, via Oral, Rectal, both Oral and Rectal, Enteric Tube, Stoma or Indwelling Catheter, Enteric Contrast as designated per enteric contrast guidelines fluticasone (FLONASE) 50 mcg/actuation nasal spray Use 1 Atkinson in each nostril once daily. No current facility-administered medications for this visit. ALLERGIES: Decongestant Tablet, Naprosyn [Naproxen], and Ragweed Pollen PAST MEDICAL HISTORY PAST MEDICAL HISTORY Diagnosis Date Diastasis recti GERD (gastroesophageal reflux disease) silent reflux Glucose intolerance (impaired glucose tolerance) Hyperlipidemia Inguinal hernia right Seasonal allergies Subclinical hypothyroidism PAST SURGICAL HISTORY PAST SURGICAL HISTORY Procedure Laterality Date ARTHRODESIS ANTERIOR SPINAL DFRM 2-3 VRT SGM 2005 L5-S1, anterior and posterior ARTHROSCOPY KNEE DIAGNOSTIC W/WO SYNOVIAL BX SPX Left 1991 I&D PERIANAL ABSCESS 1982 LEFT HEART CATH,PERCUTANEOUS Dr. Tyra REPAIR ING HERNIA,5+Y/O,REDUCIBL Right 1967 FAMILY HISTORY FAMILY HISTORY Problem Relation Age of Onset Melanoma Mother Alzheimer's Disease Mother Hyperlipidemia Mother Pancreatic Cancer Father Melanoma Maternal Grandfather SOCIAL HISTORY Social History Tobacco Use Smoking status: Former Packs/day: 2.00 Years: 7.00 Additional pack years: 0.00 Total pack years: 14.00 Types: Cigarettes Quit date: 1968 Years since quittin.6 Vaping Use Vaping Use: Never used Substance Use Topics Alcohol use: Yes Comment: 2-3 drinks per week. Drug use: Never REVIEW OF SYMPTOMS: The review of systems data was entered by the nurse and reviewed by dc Nursing Notes: Tangela Nava RN 09/21/2023 12:20 PM Signed REVIEW OF SYSTEMS: General: The patient denies fatigue, denies weight loss, denies weight gain, denies feeling hot, and denies feelings of cold. Eyes: The patient denies glaucoma, denies eye injury/surgery, wears glasses or contacts. Ear/Nose/Throat: The patient NOTES allergies, NOTES hayfever, NOTES ear infections, and NOTES bloody noses. Cardiovascular: The patient NOTES chest pain, denies heart disease, denies high blood pressure,denies cardiac stent, denies prior heart attack, denies irregular heart beat, denies high cholesterol, denies poor circulation, denies heart failure, other cardiac issues, denies claudication, denies cold feet, denies peripheral arterial stent. Respiratory: The patient denies tuberculosis, NOTES pneumonia, NOTES frequent cough, denies pulmonary embolism, NOTES shortness of breath, and denies coughing up blood. Gastrointestinal: The patient denies difficulty swallowing, NOTES acid reflux, denies ulcers, denies vomiting, denies jaundice/hepatitis, denies gallbladder problems, denies black or tarry stools, NOTES hemorrhoids, denies bleeding from rectum, denies diverticulitis, denies constipation, denies diarrhea, denies loss of stool control, and NOTES hernias. Kidney/Bladder: The patient NOTES kidney stones, NOTES urine infections, and denies bloody urine. Skin: The patient denies a history of skin cancer, denies bleeding/changing moles, and denies a history of skin rash. Neurologic: The patient denies a history of epilepsy/convulsions, NOTES headaches, denies head/spinal injuries, and denies stroke/TIA. Psychiatric: The patient denies psychiatric medications, denies depression, and denies voices, denies substance abuse. Endocrine: The patient NOTES thyroid disorders, denies diabetes, and denies hormonal problems. Hematologic: The patient denies a history of bruising, denies bleeding, and denies anemia, denies blood clots. Infections: The patient NOTES a history of measles and mumps, denies rheumatic fever, and denies sexually transmitted diseases. Musculoskeletal: The patient NOTES back pain/injury, denies back problems, NOTES sciatica, NOTES knee/foot trouble, NOTES arthritis, or denies gout. When was patient's last Mammogram screening? N/A Last Colonoscopy: 2021 or 2022 Tangela Nava RN PHYSICAL EXAMINATION: General: The patient is 77 year old, male well nourished, well hydrated in no acute distress. The patient is oriented to time, place, and person. VITALS: Blood pressure 112/68, pulse 94, temperature 36.6 C (97.8 F), height 175.3 cm (5' 9), weight 82.6 kg (182 lb 3.2 oz), SpO2 97%. Body mass index is 26.91 kg/m . HEENT: Normal cephalic, ataumatic, pupils are equally round, sclera are anicteric, mucous membranes are moist, oropharynx is clear. Neck has no masses, asymmetry or lymphadenopathy. Respiratory: Clear to auscultation and percussion. Normal respiratory excursion and pattern. Cardiac: Examination is regular rate and rhythm. Normal S1/S2 Abdominal exam: Soft, nontender. No hepatosplenomegaly. +midline bulge when engaging the core muscles. This resolves when patient is supine & relaxed. No redness, no pain with palpation Extremities: no clubbing, cyanosis or edema. No adenopathy. LABORATORY VALUES: As Noted RADIOLOGIC STUDIES: As Noted Assessment IMPRESSION: GERD, upper abdominal pain, throat clearing PLAN: I have reviewed my findings with the surgeon. Will plan for upper endoscopy. We discussed the risks and benefits of the planned endoscopy. I have informed the patient that complications can occur including failure to complete the endoscopy and perforation. sayra had the opportunity to ask questions concerning the planned endoscopy. My staff has also explained the procedure to the patient in understandable terms and has given the patient printed material concerning the procedure. Silvia freely consents to surgery. I have explained to the patient the difference between IV conscious sedation and MAC anesthesia - and I have offered either, according to the patient's wishes. I have explained that with IV conscious sedation there is no anesthesia provider available and therefore there is a limitation of the amount of IV medications that can be given and that the patient may wake up in the middle of the procedure and/or experience pain/discomfort during the procedure. Further discussion was done and the patient was given the opportunity to ask questions and all questions were answered. Silvia chooses IV conscious sedation Silvia was counseled that if there are changes in his/her medical condition, to let the office know if surgery should proceed. If there are changes in patient's medical condition from time of this encounter to the day of the procedure that preclude anesthesia, patient may have procedure cancelled for patient's safety. After obtaining outside lab work, will get a CT scan of abd/pelv to r/o any other cause of the diffuse upper abd pain. labs completed on 09/08/23 with a creatinine of 1.14 & GFR 66. Diagnoses: (K21.9) Gastro-esophageal reflux disease without esophagitis (primary encounter diagnosis) (R10.10) Pain of upper abdomen (R09.89) Throat clearing Dalia Holguin APRN.SECURITY ASSESSOR documented in this encounter [facility] 09-24-2023 Note Formatting of this n ote might be different from the original. The patient received a copy of EGD discharge instructions that contain information for how to contact the physician who performed the procedure and when to seek medical care. Brenda Landa RN [facility] 09-24-2023 Miscellaneous Notes The patient received a copy of EGD discharge instructions that contain information for how to contact the physician who performed the procedure and when to seek medical care. Brenda Landa RN documented in this encounter [facility] 09-24-2023 Nurse Note Arrived in phase II via cart. Left lateral position. Sedated, but responds to verbal stimuli. Color normal; skin warm and dry. Respirations wnl and unlabored. Abdomen soft and with + bowel sounds in quads X 4. Patient resting comfortably. Family at bedside. Brenda Landa RN [facility] 09-24-2023 Nurse Note Arrived in phase II via cart. Left lateral position. Sedated, but responds to verbal stimuli. Color normal; skin warm and dry. Respirations wnl and unlabored. Abdomen soft and with + bowel sounds in quads X 4. Patient resting comfortably. Family at bedside. Brenda Landa RN documented in this encounter [facility] 09-23-2023 Telephone encounter Note View External Labs - CBC, CMP, TSH, T4, Lipid, Liver from [facility] [ID [id number]] [facility] 09-23-2023 Miscellaneous Notes View External Labs - CBC, CMP, TSH, T4, Lipid, Liver from [facility] [ID [id number]] Can we please request recent lab work done through Dr. Goldsmith office? Specifically looking for a CMP/BMP with creat & GFR prior to CT with contrast. ThanksDalia APRN.SECURITY ASSESSOR documented in this encounter [facility] 09-21-2023 Nurse Note REVIEW OF SYSTEMS: General: The patient denies fatigue, denies weight loss, denies weight gain, denies feeling hot, and denies feelings of cold. Eyes: The patient denies glaucoma, denies eye injury/surgery, wears glasses or contacts. Ear/Nose/Throat: The patient NOTES allergies, NOTES hayfever, NOTES ear infections, and NOTES bloody noses. Cardiovascular: The patient NOTES chest pain, denies heart disease, denies high blood pressure,denies cardiac stent, denies prior heart attack, denies irregular heart beat, denies high cholesterol, denies poor circulation, denies heart failure, other cardiac issues, denies claudication, denies cold feet, denies peripheral arterial stent. Respiratory: The patient denies tuberculosis, NOTES pneumonia, NOTES frequent cough, denies pulmonary embolism, NOTES shortness of breath, and denies coughing up blood. Gastrointestinal: The patient denies difficulty swallowing, NOTES acid reflux, denies ulcers, denies vomiting, denies jaundice/hepatitis, denies gallbladder problems, denies black or tarry stools, NOTES hemorrhoids, denies bleeding from rectum, denies diverticulitis, denies constipation, denies diarrhea, denies loss of stool control, and NOTES hernias. Kidney/Bladder: The patient NOTES kidney stones, NOTES urine infections, and denies bloody urine. Skin: The patient denies a history of skin cancer, denies bleeding/changing moles, and denies a history of skin rash. Neurologic: The patient denies a history of epilepsy/convulsions, NOTES headaches, denies head/spinal injuries, and denies stroke/TIA. Psychiatric: The patient denies psychiatric medications, denies depression, and denies voices, denies substance abuse. Endocrine: The patient NOTES thyroid disorders, denies diabetes, and denies hormonal problems. Hematologic: The patient denies a history of bruising, denies bleeding, and denies anemia, denies blood clots. Infections: The patient NOTES a history of measles and mumps, denies rheumatic fever, and denies sexually transmitted diseases. Musculoskeletal: The patient NOTES back pain/injury, denies back problems, NOTES sciatica, NOTES knee/foot trouble, NOTES arthritis, or denies gout. When was patient's last Mammogram screening? N/A Last Colonoscopy: 2021 or 2022 Tangela Nava RN [facility] 09-21-2023 Nurse Note REVIEW OF SYSTEMS: General: The patient denies fatigue, denies weight loss, denies weight gain, denies feeling hot, and denies feelings of cold. Eyes: The patient denies glaucoma, denies eye injury/surgery, wears glasses or contacts. Ear/Nose/Throat: The patient NOTES allergies, NOTES hayfever, NOTES ear infections, and NOTES bloody noses. Cardiovascular: The patient NOTES chest pain, denies heart disease, denies high blood pressure,denies cardiac stent, denies prior heart attack, denies irregular heart beat, denies high cholesterol, denies poor circulation, denies heart failure, other cardiac issues, denies claudication, denies cold feet, denies peripheral arterial stent. Respiratory: The patient denies tuberculosis, NOTES pneumonia, NOTES frequent cough, denies pulmonary embolism, NOTES shortness of breath, and denies coughing up blood. Gastrointestinal: The patient denies difficulty swallowing, NOTES acid reflux, denies ulcers, denies vomiting, denies jaundice/hepatitis, denies gallbladder problems, denies black or tarry stools, NOTES hemorrhoids, denies bleeding from rectum, denies diverticulitis, denies constipation, denies diarrhea, denies loss of stool control, and NOTES hernias. Kidney/Bladder: The patient NOTES kidney stones, NOTES urine infections, and denies bloody urine. Skin: The patient denies a history of skin cancer, denies bleeding/changing moles, and denies a history of skin rash. Neurologic: The patient denies a history of epilepsy/convulsions, NOTES headaches, denies head/spinal injuries, and denies stroke/TIA. Psychiatric: The patient denies psychiatric medications, denies depression, and denies voices, denies substance abuse. Endocrine: The patient NOTES thyroid disorders, denies diabetes, and denies hormonal problems. Hematologic: The patient denies a history of bruising, denies bleeding, and denies anemia, denies blood clots. Infections: The patient NOTES a history of measles and mumps, denies rheumatic fever, and denies sexually transmitted diseases. Musculoskeletal: The patient NOTES back pain/injury, denies back problems, NOTES sciatica, NOTES knee/foot trouble, NOTES arthritis, or denies gout. When was patient's last Mammogram screening? N/A Last Colonoscopy: 2021 or 2022 Tangela Nava RN documented in this encounter [facility] 09-21-2023 Telephone encounter Note Can we please request recent lab work done through Dr. Goldsmith office? Specifically looking for a CMP/BMP with creat & GFR prior to CT with contrast. Thanks, Dalia Holguin APRN.SECURITY ASSESSOR [facility] Work Phone: 09-21-2023 History of Presen t illness Narrative HISTORY AND PHYSICAL Silvia Nicole II : 1945 REFERRING PHYSICIAN: No referring provider defined for this encounter. CHIEF COMPLAINT: Patient presents with: Consult: Consultation for GERD and midline hernia. HPI: Silvia is a 77 year old male referred for endoscopy. Silvia notes dull upper abd pain . He denies any change in bowel habits, weight changes, blood in stools, black tarry stools or abdominal pain. [facility] notes upper GI complaints. 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 He refers he notices a cough that is worse after laying down and he is always clearing his throat. He states 40 years ago he developed a raspy voice and has had it since- refers he used to use Maalox frequently In 2009 he noticed a bulge when lifting legs in the supine position or doing a crunch that has increasingly gotten larger- not painful C/O a dull ach near diastasis recti area that has gotten worse over the last 2 weeks. [facility] refers he has been doing a lot of heavy lifting over those 2 weeks with home renovations. [facility] just recently started taking omeprazole for the 1st time and noted minimal relief. States concern for possible duodenal ulcer d/t current stress of home lisbeth States he gets nausea but hasn't vomited in over 20 years Silvia has undergone prior endoscopy. Not due for repeat colonoscopy for 3 more years & having no issues. [facility] has never had EGD. Current Outpatient Medications Medication Sig SYNTHROID 100 mcg tablet Take 100 mcg by mouth once daily. acetaminophen (TYLENOL EXTRA STRENGTH) 500 mg tablet Take 500 mg by mouth every 8 hours as needed for pain. triamcinolone acetonide (KENALOG) 0.1 % cream Apply 1 application to affected area two times a day. cyclobenzaprine (FLEXERIL) 10 mg tablet Take 10 mg by mouth two times a day as needed for muscle spasm. rosuvastatin (CRESTOR) 10 mg tablet Take 10 mg by mouth daily at bedtime. IPRATROPIUM BROMIDE NASAL Use in the nose. omeprazole (PRILOSEC) 40 mg capsule Take 40 mg by mouth once daily. iv contrast (will be provided with radiology test) CT ABD/PEL -Inject, intravenously, once for 1 dose.No IV access, insert saline lock prior to the beginning of sedation, infusion, injection of imaging exam. Discontinue saline lock post exam. If Pt. has a central line or IVAD, may access for administration according to line specific nursing protocol. Once exam is complete flush line and de-access according to line specific nursing protocol in the CT contrast administration guidelines link. enteric contrast (will be provided with radiology test) For CT ABD/PEL W IVCON Routine order Administer, As Directed One Time Only, via Oral, Rectal, both Oral and Rectal, Enteric Tube, Stoma or Indwelling Catheter, Enteric Contrast as designated per enteric contrast guidelines fluticasone (FLONASE) 50 mcg/actuation nasal spray Use 1 Atkinson in each nostril once daily. No current facility-administered medications for this visit. ALLERGIES: Decongestant Tablet, Naprosyn [Naproxen], and Ragweed Pollen PAST MEDICAL HISTORY Diagnosis Date Diastasis recti GERD (gastroesophageal reflux disease) silent reflux Glucose intolerance (impaired glucose tolerance) Hyperlipidemia Inguinal hernia right Seasonal allergies Subclinical hypothyroidism PAST SURGICAL HISTORY Procedure Laterality Date ARTHRODESIS ANTERIOR SPINAL DFRM 2-3 VRT SGM 2005 L5-S1, anterior and posterior ARTHROSCOPY KNEE DIAGNOSTIC W/WO SYNOVIAL BX SPX Left 1991 I&D PERIANAL ABSCESS 1982 LEFT HEART CATH,PERCUTANEOUS Dr. Tyra REPAIR ING HERNIA,5+Y/O,REDUCIBL Right 1967 FAMILY HISTORY Problem Relation Age of Onset Melanoma Mother Alzheimer's Disease Mother Hyperlipidemia Mother Pancreatic Cancer Father Melanoma Maternal Grandfather Social History Tobacco Use Smoking status: Former Packs/day: 2.00 Years: 7.00 Additional pack years: 0.00 Total pack years: 14.00 Types: Cigarettes Quit date: 1968 Years since quittin.6 Vaping Use Vaping Use: Never used Substance Use Topics Alcohol use: Yes Comment: 2-3 drinks per week. Drug use: Never REVIEW OF SYMPTOMS: The review of systems data was entered by the nurse and reviewed by dc Nursing Notes: Tangela Nava RN 09/21/2023 12:20 PM Signed REVIEW OF SYSTEMS: General: The patient denies fatigue, denies weight loss, denies weight gain, denies feeling hot, and denies feelings of cold. Eyes: The patient denies glaucoma, denies eye injury/surgery, wears glasses or contacts. Ear/Nose/Throat: The patient NOTES allergies, NOTES hayfever, NOTES ear infections, and NOTES bloody noses. Cardiovascular: The patient NOTES chest pain, denies heart disease, denies high blood pressure,denies cardiac stent, denies prior heart attack, denies irregular heart beat, denies high cholesterol, denies poor circulation, denies heart failure, other cardiac issues, denies claudication, denies cold feet, denies peripheral arterial stent. Respiratory: The patient denies tuberculosis, NOTES pneumonia, NOTES frequent cough, denies pulmonary embolism, NOTES shortness of breath, and denies coughing up blood. Gastrointestinal: The patient denies difficulty swallowing, NOTES acid reflux, denies ulcers, denies vomiting, denies jaundice/hepatitis, denies gallbladder problems, denies black or tarry stools, NOTES hemorrhoids, denies bleeding from rectum, denies diverticulitis, denies constipation, denies diarrhea, denies loss of stool control, and NOTES hernias. Kidney/Bladder: The patient NOTES kidney stones, NOTES urine infections, and denies bloody urine. Skin: The patient denies a history of skin cancer, denies bleeding/changing moles, and denies a history of skin rash. Neurologic: The patient denies a history of epilepsy/convulsions, NOTES headaches, denies head/spinal injuries, and denies stroke/TIA. Psychiatric: The patient denies psychiatric medications, denies depression, and denies voices, denies substance abuse. Endocrine: The patient NOTES thyroid disorders, denies diabetes, and denies hormonal problems. Hematologic: The patient denies a history of bruising, denies bleeding, and denies anemia, denies blood clots. Infections: The patient NOTES a history of measles and mumps, denies rheumatic fever, and denies sexually transmitted diseases. Musculoskeletal: The patient NOTES back pain/injury, denies back problems, NOTES sciatica, NOTES knee/foot trouble, NOTES arthritis, or denies gout. When was patient's last Mammogram screening? N/A Last Colonoscopy: 2021 or 2022 Tangela Nava RN PHYSICAL EXAMINATION: General: The patient is 77 year old, male well nourished, well hydrated in no acute distress. The patient is oriented to time, place, and person. VITALS: Blood pressure 112/68, pulse 94, temperature 36.6 C (97.8 F), height 175.3 cm (5' 9), weight 82.6 kg (182 lb 3.2 oz), SpO2 97%. Body mass index is 26.91 kg/m . HEENT: Normal cephalic, ataumatic, pupils are equally round, sclera are anicteric, mucous membranes are moist, oropharynx is clear. Neck has no masses, asymmetry or lymphadenopathy. Respiratory: Clear to auscultation and percussion. Normal respiratory excursion and pattern. Cardiac: Examination is regular rate and rhythm. Normal S1/S2 Abdominal exam: Soft, nontender. No hepatosplenomegaly. +midline bulge when engaging the core muscles. This resolves when patient is supine & relaxed. No redness, no pain with palpation Extremities: no clubbing, cyanosis or edema. No adenopathy. LABORATORY VALUES: As Noted RADIOLOGIC STUDIES: As Noted Assessment IMPRESSION: GERD, upper abdominal pain, throat clearing PLAN: I have reviewed my findings with the surgeon. Will plan for upper endoscopy. We discussed the risks and benefits of the planned endoscopy. I have informed the patient that complications can occur including failure to complete the endoscopy and perforation. Silvia had the opportunity to ask questions concerning the planned endoscopy. My staff has also explained the procedure to the patient in understandable terms and has given the patient printed material concerning the procedure. Silvia freely consents to surgery. I have explained to the patient the difference between IV conscious sedation and MAC anesthesia - and I have offered either, according to the patient's wishes. I have explained that with IV conscious sedation there is no anesthesia provider available and therefore there is a limitation of the amount of IV medications that can be given and that the patient may wake up in the middle of the procedure and/or experience pain/discomfort during the procedure. Further discussion was done and the patient was given the opportunity to ask questions and all questions were answered. Silvia chooses IV conscious sedation Silvia was counseled that if there are changes in his/her medical condition, to let the office know if surgery should proceed. If there are changes in patient's medical condition from time of this encounter to the day of the procedure that preclude anesthesia, patient may have procedure cancelled for patient's safety. After obtaining outside lab work, will get a CT scan of abd/pelv to r/o any other cause of the diffuse upper abd pain. Diagnoses: (K21.9) Gastro-esophageal reflux disease without esophagitis (primary encounter diagnosis) (R10.10) Pain of upper abdomen (R09.89) Throat clearing Dalia Holguin APRN.LEELEE documented in this encounter [facility] 09-21-2023 Note HNO ID: [id number] Author: DALIA HOLGUIN APRN.LEELEE Service: ? Author Type: Nurse Practitioner Type: Progress Notes Filed: 09/24/2023 08:21 Note Text: HISTORY AND PHYSICAL Silvia Peck Nicole II : 1945 REFERRING PHYSICIAN: No referring provider defined for this encounter. CHIEF COMPLAINT: Patient presents with: Consult: Consultation for GERD and midline hernia. HPI: Silvia is a 77 year old male referred for endoscopy. Silvia notes dull upper abd pain . He denies any change in bowel habits, weight changes, blood in stools, black tarry stools or abdominal pain. [facility] notes upper GI complaints. 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 He refers he notices a cough that is worse after laying down and he is always clearing his throat. He states 40 years ago he developed a raspy voice and has had it since- refers he used to use Maalox frequently In 2009 he noticed a bulge when lifting legs in the supine position or doing a crunch that has increasingly gotten larger- not painful C/O a dull ach near diastasis recti area that has gotten worse over the last 2 weeks. [facility] refers he has been doing a lot of heavy lifting over those 2 weeks with home renovations. [facility] just recently started taking omeprazole for the 1st time and noted minimal relief. States concern for possible duodenal ulcer d/t current stress of home lisbeth States he gets nausea but hasn't vomited in over 20 years Silvia has undergone prior endoscopy. Not due for repeat colonoscopy for 3 more years AND having no issues. [facility] has never had EGD. Current Outpatient Medications Medication Sig SYNTHROID 100 mcg tablet Take 100 mcg by mouth once daily. acetaminophen (TYLENOL EXTRA STRENGTH) 500 mg tablet Take 500 mg by mouth every 8 hours as needed for pain. triamcinolone acetonide (KENALOG) 0.1 % cream Apply 1 application to affected area two times a day. cyclobenzaprine (FLEXERIL) 10 mg tablet Take 10 mg by mouth two times a day as needed for muscle spasm. rosuvastatin (CRESTOR) 10 mg tablet Take 10 mg by mouth daily at bedtime. IPRATROPIUM BROMIDE NASAL Use in the nose. omeprazole (PRILOSEC) 40 mg capsule Take 40 mg by mouth once daily. iv contrast (will be provided with radiology test) CT ABD/PEL -Inject, intravenously, once for 1 dose.No IV access, insert saline lock prior to the beginning of sedation, infusion, injection of imaging exam. Discontinue saline lock post exam. If Pt. has a central line or IVAD, may access for administration according to line specific nursing protocol. Once exam is complete flush line and de-access according to line specific nursing protocol in the CT contrast administration guidelines link. enteric contrast (will be provided with radiology test) For CT ABD/PEL W IVCON Routine order Administer, As Directed One Time Only, via Oral, Rectal, both Oral and Rectal, Enteric Tube, Stoma or Indwelling Catheter, Enteric Contrast as designated per enteric contrast guidelines fluticasone (FLONASE) 50 mcg/actuation nasal spray Use 1 Atkinson in each nostril once daily. No current facility-administered medications for this visit. ALLERGIES: Decongestant Tablet, Naprosyn [Naproxen], and Ragweed Pollen PAST MEDICAL HISTORY Diagnosis Date Diastasis recti GERD (gastroesophageal reflux disease) silent reflux Glucose intolerance (impaired glucose tolerance) Hyperlipidemia Inguinal hernia right Seasonal allergies Subclinical hypothyroidism PAST SURGICAL HISTORY Procedure Laterality Date ARTHRODESIS ANTERIOR SPINAL DFRM 2-3 VRT SGM 2005 L5-S1, anterior and posterior ARTHROSCOPY KNEE DIAGNOSTIC W/WO SYNOVIAL BX SPX Left 1991 IANDD PERIANAL ABSCESS 1982 LEFT HEART CATH,PERCUTANEOUS Dr. Mary REPAIR ING HERNIA,5+Y/O,REDUCIBL Right 1967 FAMILY HISTORY Problem Relation Age of Onset Melanoma Mother Alzheimer's Disease Mother Hyperlipidemia Mother Pancreatic Cancer Father Melanoma Maternal Grandfather Social History Tobacco Use Smoking status: Former Packs/day: 2.00 Years: 7.00 Additional pack years: 0.00 Total pack years: 14.00 Types: Cigarettes Quit date: 1968 Years since quittin.6 Vaping Use Vaping Use: Never used Substance Use Topics Alcohol use: Yes Comment: 2-3 drinks per week. Drug use: Never REVIEW OF SYMPTOMS: The review of systems data was entered by the nurse and reviewed by dc Nursing Notes: Tangela Nava RN 09/21/2023 12:20 PM Signed REVIEW OF SYSTEMS: General: The patient denies fatigue, denies weight loss, denies weight gain, denies feeling hot, and denies feelings of cold. Eyes: The patient denies glaucoma, denies eye injury/surgery, wears glasses or contacts. Ear/Nose/Throat: The patient NOTES allergies, NOTES hayfever, NOTES ear infections, and NOTES bloody noses. Cardiovascular: The patient NOTES chest pain, denies heart disease, denies high blood pressure,denies cardiac stent, de (more content not included)... [place] 12-17-2021 Miscellaneous Notes The patient hasn't been seen by the provider. The patient is scheduled for a new patient appointment on 01/22/22. Please provide the medical records for the patient's appointment. Received MRI Brain with and without contrast from [facility]. Paperwork sent to Dr. Siu for review. For pt 01/22/22 apt. documented in this encounter [facility] 12-10-2021 Miscellaneous Notes Left the patient a voice message, mailed a reminder, and sent my chart message about the canceled appointment and new appointment. documented in this encounter [facility] Evaluation note Diagnosis Onset Date Family history of colon cancer in father acute Personal history of colonic polyps acute [facility] Work Phone: Evaluation note* Diagnosis Onset Date Resolution Status Family history of colon cancer in father acute Personal history of colonic polyps acute Contact with or suspected ex posure to other viral communicable disease acute [facility] Work Phone: Evaluation note* Diagnosis Onset Date Resolution Status Contact with or suspected ex posure to other viral communicable disease acute [facility] Work Phone: Evaluation noteNo assessment information available [facility] Work Phone: evaluation note* Diagnosis Onset Date Resolution Status S/P lumbar and lumbosacral fusion by anterior techniqu e acute [facility] Work Phone: Evaluation note* Diagnosis Onset Date Resolution Status S/P lumbar and lumbosacral fusion by anterior techniqu e acute Trochanteric bursitis of left hip acute [facility] Work Phone: Evaluation note* Diagnosis Gastro-esophageal reflux disease without esophagitis- Primary Esophageal reflux Pain of upper abdomen Abdominal pain, other specified site Throat clearing Other symptoms involving head and neck [facility] Diagnosis Heartburn- Primary Gastro-esophageal reflux disease without esophagitis Esophageal reflux [facility] Diagnosis Pain of upper abdomen Abdominal pain, other specified site [facility] Diagnosis Gastroesophageal reflux disease with esophagitis without hemorrhage- Primary Cyst of right kidney Unspecified congenital cystic kidney disease [facility] Diagnosis Renal cyst- Primary Unspecified congenital cystic kidney disease documented in this encounter [facility] for referral (narrative)* Outpatient Procedure (Routine) - Closed Specialty Diagnoses / Procedures Referred By Arnold maya Referred To Contact [facility] Diagnoses Gastro-esophageal reflux disease without esophagitis Procedures EGD DIAGNOSTIC ESOPHAGOGASTRODUODENOSC OPY TRANSORAL DIAGNOSTIC Dalia Holguin APRN.SECURITY ASSESSOR [address] [place] [address] [facility] [address] [place] [address] Referral ID Status Reason Start Date Expiration Date V isits Requested Visits Authorized [id number] Closed Auto-Generate d Referral 09/21/2023 02/22/2024 1 1 [facility] for referral (narrative)* Diagnostic Procedure Only (Routine) - Authorized Specialty Diagnoses / Procedures Referred By Arnold maya Referred To Contact [facility] Diagnoses Renal cyst Procedures US KIDNEY/BLADDER US RETROPERITONEAL REAL TIME W/IMAGE COMPLETE Rita Chaidez Jr., MD [facility] [place] [address] [place] [address] Referral ID Status Reason Start Date Expiration Date Visits Requested Visits Authorized [id number] Authorized Auto-Generat ed Referral 11/16/2024 12/16/2024 1 1 [facility] for referral (narrative)No reason for referral [facility] Reason for visit Narrative* Outpatient Procedure (Routine) - Closed Specialty Diagnoses / Procedures Referred By Arnold maya Referred To Contact [facility] Diagnoses Gastro-esophageal reflux disease without esophagitis Procedures EGD DIAGNOSTIC ESOPHAGOGASTRODUODENOSC OPY TRANSORAL DIAGNOSTIC Dalia Holguin APRN.CNP [address] [place] [address] [facility] [address] [place] [address] Referral ID Status Reason Start Date Expiration Date V isits Requested Visits Authorized [id number] Closed Auto-Generate d Referral 09/21/2023 02/22/2024 1 1 [facility] Summary Purpose Family History No Family History Records Found Relationship Condition Age at Onset Recorded Date/T james Not Specified Malignant neoplasm Unknown son Cardiac disease Unknown Advance Directives No Advanced Directives Records Found Advance Directive Response Recorded Date/ Time Advance Directives Yes August 19 6:59am Living Will Yes May 07, 2021 1:47pm Power of Booky Yes May 07 1:47pm Advance Directive Response Recorded Date/ Time Name of Medical Power of Booky May 07, 2021 1:47pm Advance Directives Yes August 19 6:59am Living Will Yes May 07, 2021 1:47pm Power of Booky Yes May 07 1:47pm Advance Directive Response Recorded Date/ Time Advance Directives Yes August 19 5:59am Living Will Yes May 07, 2021 12:47pm Power of Booky Yes May 07 12:47pm Advance Directive Response Recorded Date/ Time Advance Directives Yes August 19 6:59am Chief Complaint and Reason for Visit Chief Complaint OA SCANNING PURPOSES Reason for Visit Family history of co brett cancer in father Personal history of colonic polyps Chief Complaint OA SCANNING PURPOSES COVID TEST/EXPOSURE Reason for Visit Family history of co brett cancer in father Personal history of colonic polyps Contact with or suspected exposure to other viral communicable disease Chief Complaint COVID TEST/EXPOSURE Reason for Visit Family history of co brett cancer in father Personal history of colonic polyps Contact with or suspected exposure to other viral communicable disease Chief Complaint COVID TEST/EXPOSURE HEADACHES Reason for Visit Contact with or susp ected exposure to other viral communicable disease Chief Complaint BILATERAL HIP XRAY Chief Complaint lumber spine Room 1 Arthrodesis status Reason for Visit S/P lumbar and lumbo sacral fusion by anterior technique Chief Complaint Arthrodesis status LUMBAR SPINE Reason for Visit S/P lumbar and lumbo sacral fusion by anterior technique Trochanteric bursitis of left hip Chief Complaint EORDER- Chief Complaint Admit Date R HAND AND WRIST, RX HERE March 20th, 20 25 10:30am Reason for Referral Specialty Diagnoses / Procedures Referred By Contac t Referred To Contact CT IMAGING Diagnoses Pain of upper abdomen Procedures CT ABD/PEL W IVCON CT ABD & PELVIS W/CONTRAST Dalia Holguin APRN.SECURITY ASSESSOR [address] [place] [address] [place] [address] Referral ID Status Reason Start Date Expiration Date Visits Requested Visits Authorized [id number] Pending Review Auto-Generat ed Referral 09/21/2023 10/20/2024 1 1 Specialty Diagnoses / Procedures Referred By Contac t Referred To Contact [facility] Diagnoses Gastro-esophageal reflux disease without esophagitis Procedures EGD DIAGNOSTIC ESOPHAGOGASTRODUODENOSC OPY TRANSORAL DIAGNOSTIC Dalia Holguin APRN.SECURITY ASSESSOR [address] [place] [address] [facility] [address] [place] [address] Referral ID Status Reason Start Date Expiration Date Visits Requested Visits Authorized [id number] Authorized Auto-Generat ed Referral 09/21/2023 02/22/2024 1 1 Specialty Diagnoses / Procedures Referred By Contac t Referred To Contact Nephrology Diagnoses Cyst of right kidney Procedures CONSULT TO NEPHROLOGY OFFICE/OUTPATIENT [facility] MDM 60 MINUTES Dalia Holguin APRN.SECURITY ASSESSOR [address] [place] [address] Referral ID Status Reason Start Date Expiration Date Visits Requested Visits Authorized [id number] Authorized PCP Requested Referral 10/06/2023 10/05/2024 1 1 Additional Source Comments (unrecognized sect ion and content) No Status Records FoundNo Status Records FoundNo Status Records FoundNo Status Records Found INFORMATION SOURCE (unrecogn ized section and content) DATE CREATED AUTHOR 08/18/2017 [facility] DATE CREATED AUTHOR AUTHOR'S ORGANIZ ATION 10/08/2023 [place] DATE CREATED AUTHOR AUTHOR'S ORGANIZ ATION 11/20/2023 [facility] DATE CREATED AUTHOR AUTHOR'S ORGANIZ ATION 09/25/2024 [facility] Goals (unrecognized section and content) Goals may be documented in a n alternate sectionGoals may be documented in an alternate sectionGoals may be documented in an alternate sectionGoals may be documented in an alternate sectionGoals may be documented in an alternate sectionGoals may be documented in an alternate sectionGoals may be documented in an alternate sectionGoals may be documented in an alternate sectionGoals may be documented in an alternate sectionGoals may be documented in an alternate section Source Comments (unrecognize d section and content) In the event this informatio n is protected by the Federal Confidentiality of Alcohol and Drug Abuse Patient Records regulations: The Federal rules restrict any use of the information to criminally investigate or prosecute any alcohol or drug abuse patient.[facility] the event this information is protected by the Federal Confidentiality of Alcohol and Drug Abuse Patient Records regulations: The Federal rules restrict any use of the information to criminally investigate or prosecute any alcohol or drug abuse patient.[facility] the event this information is protected by the Federal Confidentiality of Alcohol and Drug Abuse Patient Records regulations: The Federal rules restrict any use of the information to criminally investigate or prosecute any alcohol or drug abuse patient.[facility] Hospital[facility] the event this information is protected by the Federal Confidentiality of Alcohol and Drug Abuse Patient Records regulations: The Federal rules restrict any use of the information to criminally investigate or prosecute any alcohol or drug abuse patient.[facility] Hospital[facility] the event this information is protected by the Federal Confidentiality of Alcohol and Drug Abuse Patient Records regulations: The Federal rules restrict any use of the information to criminally investigate or prosecute any alcohol or drug abuse patient.[facility] Hospital[facility] the event this information is protected by the Federal Confidentiality of Alcohol and Drug Abuse Patient Records regulations: The Federal rules restrict any use of the information to criminally investigate or prosecute any alcohol or drug abuse patient.[facility] Hospital[facility] the event this information is protected by the Federal Confidentiality of Alcohol and Drug Abuse Patient Records regulations: The Federal rules restrict any use of the information to criminally investigate or prosecute any alcohol or drug abuse patient.[facility] Hospital[facility] the event this information is protected by the Federal Confidentiality of Alcohol and Drug Abuse Patient Records regulations: The Federal rules restrict any use of the information to criminally investigate or prosecute any alcohol or drug abuse patient.[facility] Hospital[facility] the event this information is protected by the Federal Confidentiality of Alcohol and Drug Abuse Patient Records regulations: The Federal rules restrict any use of the information to criminally investigate or prosecute any alcohol or drug abuse patient.[facility] Hospital[facility] the event this information is protected by the Federal Confidentiality of Alcohol and Drug Abuse Patient Records regulations: The Federal rules restrict any use of the information to criminally investigate or prosecute any alcohol or drug abuse patient.[facility] Hospital[facility] the event this information is protected by the Federal Confidentiality of Alcohol and Drug Abuse Patient Records regulations: The Federal rules restrict any use of the information to criminally investigate or prosecute any alcohol or drug abuse patient.[facility] Hospital[facility] the event this information is protected by the Federal Confidentiality of Alcohol and Drug Abuse Patient Records regulations: The Federal rules restrict any use of the information to criminally investigate or prosecute any alcohol or drug abuse patient.[facility] Reason for Visit (unrecogniz ed section and content) Reason Comments Appointment Rescheduled Reason Comments Patient Update MRI results Reason Comments Consult 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 Reason Comments Radiology CT Specialty Diagnoses / Procedures Referred By Contac t Referred To Contact CT IMAGING Diagnoses Pain of upper abdomen Procedures CT ABD/PEL W IVCON CT ABD & PELVIS W/CONTRAST Dalia Holguin, [employer] CASE MANAGER.SECURITY ASSESSOR [address] [place] [address] [place] [address] Referral ID Status Reason Start Date Expiration Date V isits Requested Visits Authorized [id number] Closed Auto-Generate d Referral 09/21/2023 10/20/2024 1 1 Reason Comments Follow Up Review EGD results, review CT scan results. Reason Comments Renal Cyst Reason Comments Refill Request Care Teams (unrecognized sec tion and content) Jig Boring Machine Operator For Metal Relationship Specialty Start Date End Date Delma Glover [address] [facility] [address] [place] [address] PCP - General Family Medicine 11/05/21 Blas Oseguera [address] [place], [place] [address] Referring Ent - Otolaryngology 11/05/21 Jig Boring Machine Operator For Metal Relationship Specialty Start Date End Date Delma Glover [address] [facility] [address] [place] [address] PCP - General Family Medicine 11/05/21 Blas Oseguera [address] [place], [place] [address] Referring Ent - Otolaryngology 11/05/21 Team Status: Active Member Role Status Dates Dr. Delma Glover MD Family Provider Active Dr. Delma Glover MD Primary Care Provider Active Team Status: Inactive Member Role Status Dates Dr. Delma Glover MD Primary Care Pr ovider, Attending Provider, Referring Provider Active Team Status: Inactive Member Role Status Dates Dr. Delma Glover MD Primary Care Provider, Attend ing Provider Active Team Status: Inactive Member Role Status Dates Dr. Delma Glover MD Primary Care Provider, Referr ing Provider Active Dr. Cuba Mccann DO Attending Provider Active Team Status: Inactive Member Role Status Dates Dr. Delma Glover MD Primary Care Provider Active Dr. Dougie Mary MD Attending Provider Active Team Status: Inactive Member Role Status Dates Dr. Delma Glover MD Primary Care Provider Active Dr. Cuba Mccann DO Attending Provider, Referring P rojackyder Active Jig Boring Machine Operator For Metal Relationship Specialty Start Date End Date Delma Glover MD [address] [facility] [address] [place] [address] PCP - General Family Medicine 11/05/21 Blas Oseguera [address] [place] [address] Referring Ent - Otolaryngology 11/05/21 Jig Boring Machine Operator For Metal Relationship Specialty Start Date End Date Delma Glover MD [address] [facility] [address] [place], [place] [address] PCP - General Family Medicine 11/05/21 Blas Oseguera [address] [place], [place] [id number] Referring Ent - Otolaryngology 11/05/21 Jig Boring Machine Operator For Metal Relationship Specialty Start Date End Date Delma Glover MD [address] [facility] [address] [place] [address] PCP - General Family Medicine 11/05/21 Blas Oseguera [address] [place] [address] Referring Ent - Otolaryngology 11/05/21 Jig Boring Machine Operator For Metal Relationship Specialty Start Date End Date Delma Glover MD [address] [place] [address] PCP - General Family Medicine 11/05/21 Blas Oseguera [address] [place] [address] Referring Ent - Otolaryngology 11/05/21 Jig Boring Machine Operator For Metal Relationship Specialty Start Date End Date Delma Glover MD [address] [place] [address] PCP - General Family Medicine 11/05/21 Blas Oseguera [address] [place] [address] Referring Ent - Otolaryngology 11/05/21 Jig Boring Machine Operator For Metal Relationship Specialty Start Date End Date Delma Glover MD [address] [place] [address] PCP - General Family Medicine 11/05/21 Blas Oseguera [address] [place] [address] Referring Ent - Otolaryngology 11/05/21 Team Status: Active Member Role Status Dates Dr. Delma Glover MD Primary Care Provider Active Team Status: Inactive Member Role Status Dates Dr. Delma Glover MD Primary Care Provider Active Start: May 04, 2024 End: May 04, 2024 Dr. Delma Glover MD Attending Provider Active Start: May 04, 2024 End: May 04, 2024 Dr. Delma Glover MD Referring Provider Active Start: May 04, 2024 End: May 04, 2024 Team Status: Active Member Role Status Dates Dr. Delma Glover MD Primary Care Provider Active Start: May 11, 2024 Dr. Amadeo Longo DO Attending Provider Active Start: May 11, 2024 Dr. Amadeo Longo DO Referring Provider Active Start: May 11, 2024 FOR RECORDS PERTAINING TO PATIENTS WHO ARE [...] BE BASED ON THE PRIMARY CLINICAL RECORDS. [facility]Note [facility]. provides no warranty or guarantee of the accuracy or completeness of information in this document.
== END | disposition home or self-care (01) ==
PROVIDERS: PCP Family Medicine; Referring Provider Internal Medicine Pulmonary Disease; Visit Provider Internal Medicine Pulmonary Disease
DX: R09.02 Hypoxemia (principal)
CPT/HCPCS: 71250

== ENCOUNTER → 2024-10-02 | Outpatient (CLI) | payer MEDICARE, OTHER, SELFPAY ==
--- NOTE | 2024-09-29 13:45 | GANG_PTH ---
PATIENT: SILVIA URIBE II LOC: [facility] U#:[id number] AGE/SX: 78/M ROOM: RE10/02/[address]: Dr. Lalito Bourgeois DPM : 1945 BED: DIS: 10/02/2024 SPEC #: [id number] RECD: 10/02/24 15:48 STATUS: AUGUST REEvelina #: [id number] UZMA: 09/29/24 13:[address]: Lalito Bourgeois DEPT: SURGICAL PATHOLOGY RECD BY: Med Barragan ENTERED: 10/03/24 09:33 SP TYPE: GANGLION OTHR DR: Dr. Edu Glover MD Tissues: A - GANGLION CYST Procedures: Surgery Specimen Level V HEADER OPERATION: Excision of ganglion cyst from right hallux and possible arthroplasty of interphalangeal joint of right foot PRE-OP DIAGNOSIS: Pain in right toes, ganglion, right ankle and foot TISSUE SUBMITTED: A- Ganglion cyst, right hallux MICROSCOPIC DIAGNOSIS A. Right hallux, ganglion cyst, excision: - Digital myxoid cyst with overlying intraepidermal vesicle. MICROSCOPIC DESCRIPTION Slides are reviewed. GROSS DESCRIPTION A. Received in formalin labeled with the patient's name and date of . Designated as ganglion cyst, right hallux is a 0.8 x 0.7 x 0.6 cm focally disrupted cyst expelling gelatinous material and surfaced by a 1.7 x 0.7 cm elliptical portion of skin with blue surgical markings, devoid of orientation. The specimen is bisected (along the long axis) revealing focally fibrotic cut surfaces. Entirely submitted in 1 cassette. [place] 10/03/2024 CPT:48823
--- NOTE | 2024-09-29 13:45 | GANG_PTH ---
PATIENT: SILVIA URIBE [facility] U[facility][id number] AGE/SX: 78/M ROOM: RE10/02/[address]: Dr. Lalito Bourgeois DPM : 1945 BED: DIS: 10/02/2024 SPEC #: [id number] RECD: 10/02/24 15:48 STATUS: AUGUST REEvelina #: [id number] UZMA: 09/29/24 13:[address]: Lalito Bourgeois DEPT: SURGICAL PATHOLOGY RECD BY: Med Barragan ENTERED: 10/03/24 09:33 SP TYPE: GANGLION OTHR DR: Dr. Edu Glover MD Tissues: A - GANGLION CYST Procedures: Surgery Specimen Level V HEADER OPERATION: Excision of ganglion cyst from right hallux and possible arthroplasty of interphalangeal joint of right foot PRE-OP DIAGNOSIS: Pain in right toes, ganglion, right ankle and foot TISSUE SUBMITTED: A- Ganglion cyst, right hallux MICROSCOPIC DIAGNOSIS A. Right hallux, ganglion cyst, excision: - Digital myxoid cyst with overlying intraepidermal vesicle. MICROSCOPIC DESCRIPTION Slides are reviewed. GROSS DESCRIPTION A. Received in formalin labeled with the patient's name and date of . Designated as ganglion cyst, right hallux is a 0.8 x 0.7 x 0.6 cm focally disrupted cyst expelling gelatinous material and surfaced by a 1.7 x 0.7 cm elliptical portion of skin with blue surgical markings, devoid of orientation. The specimen is bisected (along the long axis) revealing focally fibrotic cut surfaces. Entirely submitted in 1 cassette. [place] 10/03/2024 CPT:07535
--- OUTSIDE RECORDS SUMMARY | 2024-10-02 21:17 | XMS RPT_ITS | CCD ---
Author Organization [facility] Care Team Providers Care Die Presser Name Role Phone Keo Chong Unavailable Perez Arriaza Unavailable MISSIOS, SYMEON Unavailable Unavailable MISSIOS, SYMEON Unavailable Unavailable NO REFERRING DR Unavailable Unavailable Dr. Delma Bland Primary Care Provider [phone] Dr. Delma Bland Referring Provider Nurse, Surgery Attending Provider Unavailable Dr. Sebastian Mora Attending Provider Dr. Sebastian Mora Other Provider JONNA Chong Attending Provider Dr. Delma Bland Primary Care Provider [phone] Dr. eDlma Bland Referring Provider Dr. Delma Bland Primary Care Provider [phone] Dr. Delma Bland Referring Provider Delma Bland Primary Care Provider [phone] Blas Oseguera Unavailable Dr. Delma Bland Primary Care Provider [phone] Dr. Delma Bland Referring Provider Dr. Cuba Mccann Attending Provider [phone] Dougie Mary Attending Provider Dr. Delma Bland Primary Care Provider [phone] Dr. Delma Bland Referring Provider Dr. Cuba Mccann Attending Provider [phone] Delma Bland MD Primary Care Provider Blas Oseguera Unavailable DALIA HOLGUIN Attending Unavailable ADALBERTO, DELMA E Primary Care Unavailable SCHINMARJORIE, DELMA E Primary Care Unavailable EZIODALIA CERDA Attending Unavailable TRICE MONTES Referring Unavailable SCHINNER, DELMA E Primary Care Unavailable EZIODALIA CERDA Referring Unavailable EZIO, DALIA Referring Unavailable SCHINNER, DELMA E Primary Care Unavailable EZIODALIA Referring Unavailable TRICE MONTES Attending Unavailable SCHINMARJORIE, DELMA E Primary Care Unavailable RITA CHAIDEZ JR Attending Unavaila ble DELMA BLAND Primary Care Unavailable Adalberto DOHERTY, Dr. Delma Juares Primary Care Provider Dr. Delma Bland MD Attending Provider Dr. Delma Bland MD Referring Provider Dr. Amadeo Longo DO Attending Provider Dr. Amadeo Longo DO Referring Provider Dr. Delma Bland MD Primary Care Provider Dr. Delma Bland MD Attending Provider Dr. Delma Bland MD Referring Provider Dr. Amadeo Longo DO Attending Provider Dr. Amadeo Longo DO Referring Provider Dr. Amadeo Longo DO Other Provider Dr. Ana Haney MD Attending Provider Damon DOHERTY, Dr. Sebastian Larios Attending Provider [phone] Dr. Sebastian Jose MD, V Referring Provider Delma Bland Primary Care Unavailable Sebastian Jose V Referring Unavailable Sebastian Jose V Attending Unavailable Delma Bland Primary Care Unavailable Amadeo Longo Referring Unavailable Amadeo Longo Attending Unavailable Amadeo Longo Attending Unavailable Amadeo Longo Referring Unavailable Delma Bland Primary Care Unavailable Delma Bland Referring Unavailable Delma Bland Attending Unavailable Delma Bland Primary Care Unavailable Amadeo Longo Consulting Unavailable Ana Haney Attending Unavailable Delma Bland Primary Care Unavailable Amadeo Longo Referring Unavailable Delma Bland Referring Unavailable Delma Bland Attending Unavailable Delma Bland Primary Care Unavailable Delma Bland Attending Unavailable Delma Bland Primary Care Unavailable Allergies Allergy Classification Reported Allergen(s) Allergy Type Date of Onset Reaction(s) Facility (2 sources) naproxen Drug Allergy 12-25-19 [facility] Work Phone: (20 sources) Naproxen; Translations: [NAPROXEN] Drug Allergy 09-02-19 19 Mental Status Change [facility] (6 sources) decongest Propensity to adverse reactions 09-02-19 19 unknown [facility] (7 sources) Chlorpheniramine Drug Allergy 06-09-19 23 PT UNSURE OF REACTION [facility] (7 sources) Pseudoephedrine Drug Allergy 06-09-19 23 PT UNSURE OF REACTION [facility] (12 sources) Decongestants, Nasal; Translations: [DECONGESTANT TABLET] Propensity to adverse reactions to drug 09-20-19 Other: See Comments [facility] (12 sources) Ragweed pollen; Translations: [RAGWEED POLLEN] Drug Allergy 09-20-19 Other: See Comments [facility] (1 source) Chlorpheniramine Drug Allergy 10-10-19 [facility] (1 source) Naproxen Drug Allergy 10-10-19 23 [facility] (1 source) Pseudoephedrine Drug Allergy 10-10-19 23 [facility] Medications Current Medications Medication Drug Class(es) Dates Sig (Normalized) Sig (Original) acetaminophen 500 mg oral tablet (16 sources) Start: 09-25-2022 take 2 tablets by [...] pain. Active aspirin 325 mg oral tablet (8 sources) Nonsteroidal Anti-inflammatory Drug Start: 09-25-2022 take 2 tablets by mouth once daily as needed Aspirin 325 mg tablet Active 650 mg PO DAILY as needed September 25, 2022 12:00am Start: 09-25-2022 take 650 mg by mouth once asif y Aspirin Active 650 MG PO DAILY September 24, 2022 11:00pm Start: 12-24-2016 ASPIRIN 81 MG TABS as directed ASPIRIN [id number] Perez COYLE cyclobenzaprine hydrochloride 5 mg oral [...] propionate 0.05 mg/actuat metered dose nasal spray (7 sources) Corticosteroid Start: 09-25-2022 Fluticasone Propionate 50 mcg/actuation spray,suspension Active INTRANASAL September 25, 2022 12:00am End: 09-21-2023 take 1 spray(s) nasal route once daily fluticasone (FLONASE) 50 mcg/actuation nasal spray Use 1 Yreka in each nostril once daily. 0 09/21/2023 [...] daily. Active loratadine 10 mg oral tablet (8 sources) Start: 09-25-2022 take 1 tablet by mouth once daily Loratadine (Allergy Relief (Loratadine)) 10 mg tablet Active 10 mg PO DAILY September 25, 2022 12:00am Start: 12-24-2016 ALLERGY 10 MG TBDP as directed LORATADINE [id number] Perez COYLE rosuvastatin calcium 10 mg oral tablet (20 sources) HMG-CoA Reductase Inhibitor Start: 05-07-2021 take 1 tablet by mouth once daily Rosuvastatin (Crestor) 10 mg Tablet Active 10 mg PO DAILY May 07, 2021 12:00am triamcinolone acetonide 1 mg/ml topical cream (16 sources) Corticosteroid Start: 09-25-2022 Triamcinolone Acetonide 0.1 % cream Active NMA TOPICAL September 25, 2022 12:00am Start: 09-25-2022 Triamcinolone Acetonide Active APPLIC TOPICAL September 24, 2022 11:00pm Completed/Discontinued Medications Medication Drug Class(es) Dates Sig (Normalized) Sig (Original) albuterol 0.83 mg/ml inhalant solution (2 sources) beta2-Adrenergic Agonist Start: 12-24-2016 ALBUTEROL SULFATE (2.5 MG/3ML) 0.083% NEBU 1-2 puffs every 4-6 hours as needed ALBUTEROL SULFATE [id number] Perez COYLE amoxicillin 875 mg / clavulanate 125 mg oral tablet (2 sources) Penicillin-class Antibacterial Start: 12-24-2016 AUGMENTIN 875-125 MG TABS 1 tablet twice a day AMOXICILLIN-POT CLAVULANATE [id number] Perez COYLE Benzocaine (1 source) Standardized Chemical Allergen Start: 09-24-2023 End: 09-24-2023 benzocaine 20% 1 Yreka (TOPEX) calcium chloride 0.0014 meq/ml / potassium [...] 4 Immunizations and screening for infectious disease (15 sources) Contact with and (suspected) exposure to other viral communicable diseases; Translations: [Contact with or suspected exposure to other viral communicable disease] Episodic Nonspecific chest pain (13 sources) Chest pain on exertion; Translations: [Chest pain, unspecified] 08-31-2018 Episodic Other and unspecified benign neoplasm (13 sources) History of polyp of colon; Translations: [Personal history of colonic polyps] 05-13-2021 Episodic Other and unspecified benign neoplasm (3 sources) Personal history of colonic polyps; Translations: [Personal history of colonic polyps] Episodic Other circulatory disease (1 source) Clearing throat - hawking; Translations: [Other specified symptoms and signs involving the circulatory and respiratory systems] 09-21-2023 Episodic Other connective tissue disease (6 sources) History of operative procedure on lumbosacral spinal structure; Translations: [Arthrodesis status] 09-25-2022 Episodic Other connective tissue disease (2 sources) Arthrodesis status; Translations: [Arthrodesis status] 09-25-2022 Episodic Other connective tissue disease (5 sources) Trochanteric bursitis; Translations: [Trochanteric bursitis, left hip] 10-09-2022 Episodic Other connective tissue disease (1 source) Trochanteric bursitis, left hip; Translations: [Enthesopathy of hip region] 10-09-2022 Episodic Other diseases of kidney and ureters (2 sources) Cyst of kidney; Translations: [Cyst of kidney, acquired] 10-06-2023 Episodic Other diseases of kidney and ureters (1 source) Cyst of kidney, acquired; Translations: [Renal cyst] Onset: 4 Episodic Other gastrointestinal disorders (1 source) Heartburn; Translations: [Heartburn] 09-24-2023 Episodic Other gastrointestinal disorders (1 source) Heartburn; Translations: [Heartburn] Onset: 4 Episodic Other lower respiratory disease (13 sources) Dyspnea; Translations: [Dyspnea, unspecified] 08-31-2018 Episodic [...] blood chemistry] 08-31-2018 Episodic Residual codes; unclassified (13 sources) Family history of cancer of colon; Translations: [Family history of malignant neoplasm of digestive organs] 05-13-2021 Episodic Residual codes; unclassified (3 sources) Family history of malignant neoplasm of digestive organs; Translations: [Family history of malignant neoplasm of gastrointestinal tract] Episodic Residual codes; unclassified (6 sources) Pain; Translations: [Pain, unspecified] 09-25-2022 Episodic [...] Test Name Value Interpretation Reference Range Facility Chest without Contraston Chest without Contrast [facility] Imaging Services [address] [place] [address] Chest without Contrast MR#: [id number] Acct: [id number] Name: SILVIA NICOLE II Rep #: [id number] : 1945 M 78 From: Sami staples MD PCP: Dr. Delma Bland MD Status: REG CLI Study: Chest without Contrast Date of Exam: 09/25/24 Exam# [id number] Ordering Dr: Sebastian Jose MD PROCEDURE: CHEST WITHOUT CONTRAST 09/25/2024 REASON FOR EXAM: HYPOXEMIA History of hiatal hernia. TECHNIQUE: Chest CT without contrast. Coronal and Sagittal reconstruction series were provided. One or more dose reduction techniques were used (e.g., Automated exposure control, adjustment of the mA and/or kV according to patient size, use of iterative reconstruction technique RADIATION DOSE SUMMARY: CTDlvol: 12.46 mGy DLP: 482 0.77 mGycm COMPARISON: None FINDINGS: Hardware: None Lymph nodes: Small benign-appearing mediastinal lymph nodes. Heart and Vasculature: The heart is not enlarged. Atherosclerotic calcifications of the thoracic aorta. Thoracic aorta and pulmonary arteries have normal contours; noncontrast technique limits evaluation. Coronary Artery Calcifications: Present Lungs and Airways: There is elevation of the left hemidiaphragm with shift of the heart and mediastinal structures towards the right side of the midline. Mild increased linear markings at the left lung base suggestive of scarring. Pleura: No pleural effusion. Upper Abdomen: Diffuse pancreatic atrophy. Focal calcification in the head of the pancreas. This may represent a possible distal common bile duct stone versus calcification of the head of the pancreas. 1.2 cm cyst in the right lobe of the liver inferiorly and medially. Bones: Degenerative changes of the thoracic spine. CT/Chest without Contrast IMPRESSION: Coronary artery calcification (CAC) is is present Elevation of the left hemidiaphragm. Findings suggestive of mild linear scarring at the left lung base. Reading Location: [facility] CC: Dr. Delma Bland MD; Dr. Sebastian Jose MD Manager Area: Signed Normal [facility] NCS and/or EMG Patienton NCS and/or EMG Patient [facility] Pulmonary Services/Neurology [address] [place] [address] MR#: [id number] Acct: [id number] Name: SILVIA NICOLE II Rep #: [id number] : 1945 78 From: Ana Haney MD Referring Dr: Amadeo Longo DO Status: REG C LI Location: [facility] Date: 07/05/24 Sex: M C NCS and/or EMG Patient Report Ordering Doctor: Amadeo Longo DATE OF SERVICE: 07/05/24 Silvia presents for electrodiagnostic testing of the right upper limb. He has complaints of weakness in coater hand. He denies numbness. He reports intermittent wrist [...] Multi Select Codes Neurology Neurology Interp Codes: 59601-95 Musc test done w/n test comp (interp) and 58653-70 Nrv cndj test 7- 8 studies (interp) 07/05/24 1242 Date Ana Haney MD CC: Dr. Ana Haney MD; Dr. Delma Bland MD; Dr. Amadeo Longo DO Date Dictated: 07/05/24 1238 Date Transcribed: 07/05/241237 Manager Area: JANNETH Signed Normal [facility] Re-Evalution OTon 06-20-2024 Re-Evalution OT [facility] Occupational Therapy [facility] [address] [place] [address] / REEVALUATION / MEDICARE RECERTIFICATION OCCUPATIONAL THERAPY MR#: [id number] Acct: [id number] Name: SILVIA NICOLE II Rep #: [id number] : 1945 78 From: Maeve Hammond OTR/Demarco, CHT Referring Dr.: Dr. Amadeo Longo DO [...] he had set back. 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 Sincerely, Maeve Hammond, JUAN ANTONIOR/L, T 06/20/24 1021 CC: Dr. Delma Bland MD; Dr. Amadeo Longo, MK Signed For Medicare only, by signing this I certify the plan of care. Physicians Signature Date Normal [facility] Absolute lymphocyte countOrd ered By: Delma Bland on 06-08-2024 Lymphocytes Auto (Unsp spec) [#/Vol] 3.38 10*3/uL 0.83-4.51 [facility] Absolute neutrophil countOrd ered By: Delma Bland on 06-08-2024 Neutrophils (Bld) [#/Vol] 3.2 10*3/uL 2.0-7.7 [facility] Anion gap in Serum or Plasma Ordered By: Delma Bland on 06-08-2024 Anion gap [Moles/Vol] 11 mmol/L 5-15 [facility] Automated lymphocyte count a s percentage of total leukocytesOrdered By: Delma Bland on 06-08-2024 Lymphocytes/100 WBC Auto (Unsp spec) 46.1 % High 19- [facility] BUN/creatinine ratioOrdered By: Delma Bland on 06-08-2024 Urea nitrogen/Creatinine [Mass ratio] 12.6 mg/mg 10- [facility] Basophil percentageOrdered B y: Delma Bland on 06-08-2024 Basophils/100 WBC (Bld) 0.7 % 0-1 [facility] Bilirubin, totalOrdered By: Delma Bland on 06-08-2024 Bilirubin [Mass/Vol] 0.55 mg/dL 0.00-1.30 [facility] CBC W/Diff, Automatedon 05-23 Absolute Lymph 3.38 X10 3/uL Normal 0.83-4.51 [facility] Comment on above: Order Comment: Order Date: 05/09/24Order Info: [id number] - CBCD Performed By: #### L 100.0100, L506.0400 ####[facility] [address] [place], [address] Absolute Neut 3.2 X10 3/uL Normal 2.0-7.7 [facility] Comment on above: Order Comment: Order Date: 05/09/24Order Info: [id number] - CBCD Performed By: #### L 100.0100, L506.0400 ####[facility] [address] [place], [address] Basophils/100 WBC (Bld) 0.7 % Normal 0-1 [facility] Comment on above: Order Comment: Order Date: 05/09/24Order Info: [id number] - CBCD Performed By: #### L 100.0100, L506.0400 ####[facility] [address] [place], [address] Eosinophils/100 WBC (Bld) 1.8 % Normal 0-5 [facility] Comment on above: Order Comment: Order Date: 05/09/24Order Info: [id number] - CBCD Performed By: #### L 100.0100, L506.0400 ####[facility] [address] [place], [address] Erythrocyte distribution width (RBC) [Ratio] 12.2 % Normal 11.6-14.6 [facility] Comment on above: Order Comment: Order Date: 05/09/24Order Info: [id number] - CBCD Performed By: #### L 100.0100, L506.0400 ####[facility] [address] [place], [address] Hematocrit (Bld) [Volume fraction] 41.5 % Normal 40-54 [facility] Comment on above: Order Comment: Order Date: 05/09/24Order Info: [id number] - CBCD Performed By: #### L 100.0100, L506.0400 ####[facility] [address] [place], [address] Hemoglobin (Bld) [Mass/Vol] 13.6 g/dL Normal 13.0-16.5 [facility] Comment on above: Order Comment: Order Date: 05/09/24Order Info: 0184-1 - CBCD Performed By: #### L 100.0100, L506.0400 ####[facility] [address] [place], [address] IG% 0.300 Normal 0.0-0.9 [facility] Comment on above: Order Comment: Order Date: 05/09/24Order Info: [id number] - CBCD Result Comment: IG% - Immature Granulocytes (promyelocytes, myelocytes and metamyelocytes) > 1% indicates that a LEFT SHIFT is Present. Performed By: #### L 100.0100, L506.0400 ####[facility] [address] [place], [address] Lymphocytes/100 WBC (Bld) 46.1 % High 19-41 [facility] Comment on above: Order Comment: Order Date: 05/09/24Order Info: 0184-1 - CBCD Performed By: #### L 100.0100, L506.0400 ####[facility] [address] [place], [address] MCH (RBC) [Entitic mass] 32.5 pg High 27.0-32.0 [facility] Comment on above: Order Comment: Order Date: 05/09/24Order Info: 018- - CBCD Performed By: #### L 100.0100, L506.0400 ####[facility] [address] [place], [address] MCHC (RBC) [Mass/Vol] 32.8 g/dL Normal 32-36 [facility] Comment on above: Order Comment: Order Date: 05/09/24Order Info: 0184-1 - CBCD Performed By: #### L 100.0100, L506.0400 ####[facility] [address] [place], [address] MCV (RBC) [Entitic vol] 99.3 fL High 80-94 [facility] Comment on above: Order Comment: Order Date: 05/09/24Order Info: 0184-1 - CBCD Performed By: #### L 100.0100, L506.0400 ####[facility] [address] [place], [address] Monocytes/100 WBC (Bld) 7.6 % Normal 0-10 [facility] Comment on above: Order Comment: Order Date: 05/09/24Order Info: 0184-1 - CBCD Performed By: #### L 100.0100, L506.0400 ####[facility] [address] [place], [address] Neutrophils/100 WBC (Bld) 43.5 % Low 47-70 [facility] Comment on above: Order Comment: Order Date: 05/09/24Order Info: 4-1 - CBCD Performed By: #### L 100.0100, L506.0400 ####[facility] [address] [place], [address] Nucleated RBC (Bld) [#/Vol] 0 10*3/uL Normal 0-5 [facility] Comment on above: Order Comment: Order Date: 05/09/24Order Info: 018- - CBCD Performed By: #### L 100.0100, L506.0400 ####[facility] [address] [place], [address] Platelet mean volume (Bld) [Entitic vol] 11.2 fL Normal 6.2-12.0 [facility] Comment on above: Order Comment: Order Date: 05/09/24Order Info: 018- - CBCD Performed By: #### L 100.0100, L506.0400 ####[facility] [address] [place], [address] Platelets (Bld) [#/Vol] 171 10*3/uL Normal 150-450 [facility] Comment on above: Order Comment: Order Date: 05/09/24Order Info: 018-1 - CBCD Performed By: #### L 100.0100, L506.0400 ####[facility] [address] [place], [address] RBC (Bld) [#/Vol] 4.18 10*6/uL Low 4.6-6.2 [facility] Comment on above: Order Comment: Order Date: 05/09/24Order Info: 0184- - CBCD Performed By: #### L 100.0100, L506.0400 ####[facility] [address] [place], [address] RDW SD 44.3 fl High 35.1-43.9 [facility] Comment on above: Order Comment: Order Date: 05/09/24Order Info: 183- - CBCD Performed By: #### L 100.0100, L506.0400 ####[facility] [address] [place], [address] WBC (Bld) [#/Vol] 7.3 10*3/uL Normal 4.4-11.0 [facility] Comment on above: Order Comment: Order Date: 05/09/24Order Info: 183- - CBCD Performed By: #### L 100.0100, L506.0400 ####[facility] [address] [place], [address] Calculated very low density lipoprotein (VLDL) cholesterol measurementOrdered By: Delma Bland on 06-08-2024 Calculated very low density lipoprotein (VLDL) cholesterol measurement 15 mg/dL 5-40 [facility] Carbon dioxide, total [Moles /volume] in Central venous bloodOrdered By: Delma Bland on 06-08-2024 CO2 [Moles/Vol] 24.0 mmol/L 21.0-32.0 [facility] Chloride assayOrdered By: Viviana Bland on 06-08-2024 Chloride [Moles/Vol] 103 mmol/L 98-108 [facility] Comprehensive Metabolic Prof ilon 06-08-2024 Albumin [Mass/Vol] 4.2 g/dL Normal 3.4-4.8 [facility] Comment on above: Order Comment: Order Date: 05/09/24Order Info: [id number] - CMPOrder Info: [id number] - LIPIDOrder Info: [id number] - TSHOrder Info: [id number] - PSAOrder Info: [id number] - T4F Performed By: #### L 501.9910, L501.9520, L500.4100, L501.9985, L500.4050 ####[facility] [address] [place], [address] Albumin/Globulin [Mass ratio] 1.5 {ratio} Normal 0.9-2.4 [facility] Comment on above: Order Comment: Order Date: 05/09/24Order Info: [id number] - CMPOrder Info: [id number] - LIPIDOrder Info: [id number] - TSHOrder Info: [id number] - PSAOrder Info: [id number] - T4F Performed By: #### L 501.9910, L501.9520, L500.4100, L501.9985, L500.4050 ####[facility] [address] [place], [address] ALK PHOS 64 U/L Normal 40-129 [facility] Comment on above: Order Comment: Order Date: 05/09/24Order Info: [id number] - CMPOrder Info: [id number] - LIPIDOrder Info: [id number] - TSHOrder Info: [id number] - PSAOrder Info: [id number] - T4F Performed By: #### L 501.9910, L501.9520, L500.4100, L501.9985, L500.4050 ####[facility] [address] [place], [address] ALT [Catalytic activity/Vol] 14 U/L Normal <=46 [facility] Comment on above: Order Comment: Order Date: 05/09/24Order Info: [id number] - CMPOrder Info: [id number] - LIPIDOrder Info: [id number] - TSHOrder Info: [id number] - PSAOrder Info: [id number] - T4F Performed By: #### L 501.9910, L501.9520, L500.4100, L501.9985, L500.4050 ####[facility] [address] [place], [address] AST [Catalytic activity/Vol] 24 U/L Normal <=37 [facility] Comment on above: Order Comment: Order Date: 05/09/24Order Info: 86-1 - CMPOrder Info: [id number] - LIPIDOrder Info: 6-3 - TSHOrder Info: [id number] - PSAOrder Info: [id number] - T4F Performed By: #### L 501.9910, L501.9520, L500.4100, L501.9985, L500.4050 ####[facility] [address] [place], [address] Bilirubin [Mass/Vol] 0.55 mg/dL Normal 0.00-1.30 [facility] Comment on above: Order Comment: Order Date: 05/09/24Order Info: 86-1 - CMPOrder Info: [id number] - LIPIDOrder Info: [id number] - TSHOrder Info: [id number] - PSAOrder Info: [id number] - T4F Performed By: #### L 501.9910, L501.9520, L500.4100, L501.9985, L500.4050 ####[facility] [address] [place], [address] BUN/CRE 12.6 RATIO Normal 10-20 [facility] Comment on above: Order Comment: Order Date: 05/09/24Order Info: [id number] - CMPOrder Info: [id number] - LIPIDOrder Info: 3 - TSHOrder Info: [id number] - PSAOrder Info: [id number] - T4F Performed By: #### L 501.9910, L501.9520, L500.4100, L501.9985, L500.4050 ####[facility] [address] [place], [address] Calcium [Mass/Vol] 9.2 mg/dL Normal 7.6-11.0 [facility] Comment on above: Order Comment: Order Date: 05/09/24Order Info: 86-1 - CMPOrder Info: [id number] - LIPIDOrder Info: [id number] - TSHOrder Info: [id number] - PSAOrder Info: [id number] - T4F Performed By: #### L 501.9910, L501.9520, L500.4100, L501.9985, L500.4050 ####[facility] [address] [place], [address] Chloride [Moles/Vol] 103 mmol/L Normal 98-108 [facility] Comment on above: Order Comment: Order Date: 05/09/24Order Info: [id number] - CMPOrder Info: [id number] - LIPIDOrder Info: 3 - TSHOrder Info: [id number] - PSAOrder Info: [id number] - T4F Performed By: #### L 501.9910, L501.9520, L500.4100, L501.9985, L500.4050 ####[facility] [address] [place], [address] CO2 [Moles/Vol] 24.0 mmol/L Normal 21.0-32.0 [facility] Comment on above: Order Comment: Order Date: 05/09/24Order Info: 86-1 - CMPOrder Info: [id number] - LIPIDOrder Info: 3 - TSHOrder Info: [id number] - PSAOrder Info: [id number] - T4F Performed By: #### L 501.9910, L501.9520, L500.4100, L501.9985, L500.4050 ####[facility] [address] [place], [address] Creatinine [Mass/Vol] 1.11 mg/dL Normal 0.70-1.20 [facility] Comment on above: Order Comment: Order Date: 05/09/24Order Info: [id number] - CMPOrder Info: [id number] - LIPIDOrder Info: [id number] - TSHOrder Info: [id number] - PSAOrder Info: [id number] - T4F Performed By: #### L 501.9910, L501.9520, L500.4100, L501.9985, L500.4050 ####[facility] [address] [place], [place], [id number] GAP 11 Normal 5-15 [facility] Comment on above: Order Comment: Order Date: 05/09/24Order Info: [id number] - CMPOrder Info: [id number] - LIPIDOrder Info: 3 - TSHOrder Info: [id number] - PSAOrder Info: 7 - T4F Performed By: #### L 501.9910, L501.9520, L500.4100, L501.9985, L500.4050 ####[facility] [address] [place], [place], [address] GFR/1.73 sq M.predicted among non-blacks MDRD (S/P/Bld) [Vol rate/Area] 69 mL/min/{1.73_m2} Normal >60 [facility] Comment on above: Order Comment: Order Date: 05/09/24Order Info: [id number] - CMPOrder Info: - LIPIDOrder Info: [id number] - TSHOrder Info: [id number] - PSAOrder Info: 7 - T4F Result Comment: mL/m in/1.73m2 CKD-EPI Creatinine Equation (2020) Performed By: #### L 501.9910, L501.9520, L500.4100, L501.9985, L500.4050 ####[facility] [address] [place], [place], [address] Globulin (S) [Mass/Vol] 2.9 g/dL Normal 2.2-4.2 [facility] Comment on above: Order Comment: Order Date: 05/09/24Order Info: 86-1 - CMPOrder Info: [id number] - LIPIDOrder Info: 3 - TSHOrder Info: [id number] - PSAOrder Info: 3027 - T4F Performed By: #### L 501.9910, L501.9520, L500.4100, L501.9985, L500.4050 ####[facility] [address] [place], [address] Glucose [Mass/Vol] 88 mg/dL Normal 70-99 [facility] Comment on above: Order Comment: Order Date: 05/09/24Order Info: [id number] - CMPOrder Info: [id number] - LIPIDOrder Info: [id number] - TSHOrder Info: [id number] - PSAOrder Info: 3024-7 - T4F Performed By: #### L 501.9910, L501.9520, L500.4100, L501.9985, L500.4050 ####[facility] [address] [place], [address] Potassium [Moles/Vol] 4.4 mmol/L Normal 3.3-5.1 [facility] Comment on above: Order Comment: Order Date: 05/09/24Order Info: 86-1 - CMPOrder Info: [id number] - LIPIDOrder Info: 6-3 - TSHOrder Info: [id number] - PSAOrder Info: [id number] - T4F Performed By: #### L 501.9910, L501.9520, L500.4100, L501.9985, L500.4050 ####[facility] [address] [place], [address] Sodium [Moles/Vol] 138 mmol/L Normal 133-145 [facility] Comment on above: Order Comment: Order Date: 05/09/24Order Info: [id number] - CMPOrder Info: [id number] - LIPIDOrder Info: [id number] - TSHOrder Info: [id number] - PSAOrder Info: [id number] - T4F Performed By: #### L 501.9910, L501.9520, L500.4100, L501.9985, L500.4050 ####[facility] [address] [place], [address] T PROT 7.1 g/dL Normal 5.9-8.4 [facility] Comment on above: Order Comment: Order Date: 05/09/24Order Info: [id number] - CMPOrder Info: [id number] - LIPIDOrder Info: 3 - TSHOrder Info: [id number] - PSAOrder Info: 3027 - T4F Performed By: #### L 501.9910, L501.9520, L500.4100, L501.9985, L500.4050 ####[facility] [address] [place], [place], [address] Urea nitrogen [Mass/Vol] 14 mg/dL Normal 4-19 [facility] Comment on above: Order Comment: Order Date: 05/09/24Order Info: [id number] - CMPOrder Info: [id number] - LIPIDOrder Info: 3 - TSHOrder Info: [id number] - PSAOrder Info: 7 - T4F Performed By: #### L 501.9910, L501.9520, L500.4100, L501.9985, L500.4050 ####[facility] [address] [place], [place], [address] Eosinophil percentageOrdered By: Delma Bland on 06-08-2024 Eosinophils/100 WBC (Bld) 1.8 % 0-5 [facility] Erythrocyte distribution wid th ratioOrdered By: Delma Bland on 06-08-2024 Erythrocyte distribution width (RBC) [Ratio] 12.2 % 11.6-14.6 [facility] Erythrocyte distribution wid th standard deviationOrdered By: Delma Bland on 06-08-2024 Erythrocyte distribution width (RBC) [Ratio] 44.3 fl High 35.1-43.9 [facility] Glomerular filtration rate ( GFR) estimation/1.73 sq m using serum, plasma, or whole bOrdered By: Delma Bland on 06-08-2024 GFR/1.73 sq M.predicted among non-blacks MDRD (S/P/Bld) [Vol rate/Area] 69 mL/min/{1.73_m2} >60 [facility] Comment on above: mL/min/1.73m2 CKD-EP I Creatinine Equation (2020) Hematocrit Auto (Bld) [Volum e fraction]Ordered By: Delma Bland on 06-08-2024 Hematocrit (Bld) [Volume fraction] 41.5 % 40-54 [facility] Hemoglobin A1con 06-08-2024 HbA1c (Bld) [Mass fraction] 5.7 % Normal <=5.6 [facility] Comment on above: Order Comment: Order Date: 05/09/24Order Info: [id number] - A1C Result Comment: Norm al < 5.7 % Prediabetic 5.7 - 6.4 % Diabetic >or= 6.5 % Please note range changes. Performed By: #### L 501.9910, L501.9520, L500.4100, L501.9985, L500.4050 ####[facility] [address] [place], [address] Hemoglobin A1c percentageOrd ered By: Delma Bland on 06-08-2024 HbA1c (Bld) [Mass fraction] 5.7 % <5.7 [facility] Comment on above: Normal < 5.7 % Predi abetic 5.7 - 6.4 % Diabetic >or= 6.5 % Please note range changes. Hemoglobin measurementOrdere d By: Delma Bland on 06-08-2024 Hemoglobin (Bld) [Mass/Vol] 13.6 g/dL 13.0-16.5 [facility] Immature granulocytes/100 WB C Auto (Bld)Ordered By: Delma Bland on 06-08-2024 Immature granulocytes/100 WBC (Bld) 0.300 % 0.0-0.9 [facility] Comment on above: IG% - Immature Granu locytes (promyelocytes, myelocytes and metamyelocytes) > 1% indicates that a LEFT SHIFT is Present. LDL calc ser/plasOrdered By: Delma Bland on 06-08-2024 Cholesterol in LDL [Mass/Vol] 52 mg/dL [facility] Comment on above: Otddujknet=946-716 m g/dL & Higher Nqhh=397 mg/dL or greater Laboratory - Chemistry and C hemistry - challengeOrdered By: Delma Bland on 06-08-2024 AST [Catalytic activity/Vol] 24 U/L <38 [facility] Lipid Profileon 06-08-2024 CHOL:HDL 2.39 Normal [facility] Comment on above: Order Comment: Order Date: 05/09/24Order Info: [id number] - CMPOrder Info: [id number] - LIPIDOrder Info: 6-3 - TSHOrder Info: 1 - PSAOrder Info: [id number] T4F Performed By: #### L 501.9910, L501.9520, L500.4100, L501.9985, L500.4050 ####[facility] [address] [place], [address] Cholesterol [Mass/Vol] 115 mg/dL Normal <=200 [facility] Comment on above: Order Comment: Order Date: 05/09/24Order Info: [id number]- - CMPOrder Info: [id number] - LIPIDOrder Info: [id number] - TSHOrder Info: [id number] - PSAOrder Info: 3023-08 T4F Result Comment: Chol esterol level, Desirable <200 mg/dL Borderline high cholesterol 200-239 mg/dL High cholesterol >=240 mg/dL Recommendations of the NCEP Adult Treatment Panel for the following risk-cutoff thresholds for the [place] population. Performed By: #### L 501.9910, L501.9520, L500.4100, L501.9985, L500.4050 ####[facility] [address] [place], [address] Cholesterol in HDL [Mass/Vol] 48 mg/dL Normal [facility] Comment on above: Order Comment: Order Date: 05/09/24Order Info: [id number] - CMPOrder Info: [id number] - LIPIDOrder Info: 3 - TSHOrder Info: [id number] - PSAOrder Info: [id number] - T4F Result Comment: [place] onal Cholesterol Education Program (NCEP) guidelines: <40 mg/dL: Low HDL-cholesterol (major risk factor for CHD) >= 60 mg/dL: High HDL-cholesterol (negative risk factor for CHD) HDL-cholesterol is affected by a number of factors, e.g. smoking, exercise, hormones, sex and age. Performed By: #### L 501.9910, L501.9520, L500.4100, L501.9985, L500.4050 ####[facility] [address] [place], [address] Cholesterol in LDL [Mass/Vol] 52 mg/dL Normal [facility] Comment on above: Order Comment: Order Date: 05/09/24Order Info: 86-1 - CMPOrder Info: [id number] - LIPIDOrder Info: [id number] - TSHOrder Info: [id number] - PSAOrder Info: 7 - T4F Result Comment: Bord wemriu=565-750 mg/dL Higher Yhvr=573 mg/dL or greater Performed By: #### L 501.9910, L501.9520, L500.4100, L501.9985, L500.4050 ####[facility] [address] [place], [address] Cholesterol in VLDL [Mass/Vol] 15 mg/dL Normal 5-40 [facility] Comment on above: Order Comment: Order Date: 05/09/24Order Info: [id number] - CMPOrder Info: [id number] - LIPIDOrder Info: 6-3 - TSHOrder Info: [id number] - PSAOrder Info: [id number] - T4F Performed By: #### L 501.9910, L501.9520, L500.4100, L501.9985, L500.4050 ####[facility] [address] [place], [address] Triglyceride [Mass/Vol] 73 mg/dL Normal [facility] Comment on above: Order Comment: Order Date: 05/09/24Order Info: [id number] - CMPOrder Info: [id number] - LIPIDOrder Info: [id number] - TSHOrder Info: [id number] - PSAOrder Info: 3024-7 - T4F Result Comment: The drugs N-Acetylcysteine and Metamizole may falsely depress this assay. Normal range: <150 mg/dL Borderline High: 150-199 mg/dL High: 200-499 mg/dL Very High: >500 mg/dL Performed By: #### L 501.9910, L501.9520, L500.4100, L501.9985, L500.4050 ####[facility] [address] [place], [address] MCV (mean corpuscular volume ) determinationOrdered By: Delma Bland on 06-08-2024 MCV (RBC) [Entitic vol] 99.3 fL High 80-94 [facility] Mean corpuscular hemoglobin (MCH) determinationOrdered By: Delma Bland on 06-08-2024 MCH (RBC) [Entitic mass] 32.5 pg High 27.0-32.0 [facility] Mean corpuscular hemoglobin concentration (MCHC) determinationOrdered By: Delma Bland on 06-08-2024 MCHC (RBC) [Mass/Vol] 32.8 g/dL 32-36 [facility] Mean platelet volume determi nationOrdered By: Delma Bland on 06-08-2024 Platelet mean volume (Bld) [Entitic vol] 11.2 fL 6.2-12.0 [facility] Monocyte percentageOrdered B y: Delma Bland on 06-08-2024 Monocytes/100 WBC (Bld) 7.6 % 0-10 [facility] Neutrophil percentageOrdered By: Delma Bland on 06-08-2024 Neutrophils/100 WBC (Bld) 43.5 % Low 47-70 [facility] Nucleated red blood cell per centageOrdered By: Delma Bland on 06-08-2024 Nucleated RBC/100 WBC (Bld) [Ratio] 0 % 0-5 [facility] PSA,Total - Annual Screenon 06-08-2024 PSA,TOT SCREEN 1.17 ng/mL Normal 0.02-4.00 [facility] Comment on above: Order Comment: Order Date: 05/09/24Order Info: [id number] - CMPOrder Info: [id number] - LIPIDOrder Info: [id number] - TSHOrder Info: [...] #### L 501.9910, L501.9520, L500.4100, L501.9985, L500.4050 ####[facility] [address] [place], [address] Platelet countOrdered By: Viviana Bland on 06-08-2024 Platelets (Bld) [#/Vol] 171 10*3/uL 150-450 [facility] Potassium measurement (mass/ volume)Ordered By: Delma Bland on 06-08-2024 Potassium (Unsp spec) [Mass/Vol] 4.4 mmol/L 3.3-5.1 [facility] RBC Auto (Bld) [#/Vol]Ordere d By: Delma Bland on 06-08-2024 RBC (Bld) [#/Vol] 4.18 10*6/uL Low 4.6-6.2 [facility] Screening total cholesterol/ high density lipoprotein (HDL) cholesterol ratioOrdered By: Delma Bland on 06-08-2024 Cholesterol.total/Choles terol in HDL [Mass ratio] 2.39 {ratio} [facility] Serum creatinine measurement (mass/volume)Ordered By: Delma Bland on 06-08-2024 Creatinine [Mass/Vol] 1.11 mg/dL 0.70-1.20 [facility] Serum globulin measurementOr dered By: Delma Bland on 06-08-2024 Globulin (S) [Mass/Vol] 2.9 g/dL 2.2-4.2 [facility] Serum glucose measurement (m ass/volume)Ordered By: Delma Bland on 06-08-2024 Glucose [Mass/Vol] 88 mg/dL 70-99 [facility] Serum or plasma alanine hunter otransferase (ALT) measurementOrdered By: Delma Bland on 06-08-2024 ALT [Catalytic activity/Vol] 14 U/L <47 [facility] Serum or plasma albumin linda urement (mass/volume)Ordered By: Delma Bland on 06-08-2024 Albumin [Mass/Vol] 4.2 g/dL 3.4-4.8 [facility] Serum or plasma albumin/glob ulin mass ratioOrdered By: Delma Bland on 06-08-2024 Albumin/Globulin [Mass ratio] 1.5 {ratio} 0.9-2.4 [facility] Serum or plasma alkaline cesar sphatase measurementOrdered By: Delma Bland on 06-08-2024 ALP [Catalytic activity/Vol] 64 U/L 40-129 [facility] Serum or plasma calcium linda urement (mass/volume)Ordered By: Delma Bland on 06-08-2024 Calcium [Mass/Vol] 9.2 mg/dL 7.6-11.0 [facility] Serum or plasma cholesterol in HDL measurement (mass/volume)Ordered By: Delma Bland on 06-08-2024 Cholesterol in HDL [Mass/Vol] 48 mg/dL >40 [facility] Comment on above: National Cholesterol Education Program (NCEP) guidelines:<40 mg/dL: Low HDL-cholesterol (major risk factor for CHD)>= 60 mg/dL: High HDL-cholesterol (negative risk factor for CHD)HDL-cholesterol is affected by a number of factors, e.g. smoking, exercise, hormones, sex and age. Serum or plasma cholesterol measurement (mass/volume)Ordered By: Delma Bland on 06-08-2024 Cholesterol [Mass/Vol] 115 mg/dL <201 [facility] Comment on above: Cholesterol level, D esirable <200 mg/dLBorderline high cholesterol 200-239 mg/dLHigh cholesterol >=240 mg/dLRecommendations of the NCEP Adult Treatment Panel for the following risk-cutoff thresholds for the [place] population. Serum or plasma urea nitroge n measurement (mass/volume)Ordered By: Delma Bland on 06-08-2024 Urea nitrogen [Mass/Vol] 14 mg/dL 4-19 [facility] Sodium levelOrdered By: Delma Bland 06-08-2024 Sodium [Moles/Vol] 138 mmol/L 133-145 [facility] T4 Free Directon 06-08-2024 T4 FREE DIRECT 1.60 ng/dL High 0.76-1.46 [facility] Comment on above: Order Comment: Order Date: 05/09/24Order Info: [id number] - CMPOrder Info: [id number] - LIPIDOrder Info: 6-3 - TSHOrder Info: [id number] - PSAOrder Info: 7 - T4F Performed By: #### L 100.0100, L506.0400 ####[facility] [address] [place], [place], [id number] T4 freeOrdered By: Delma ayala on 06-08-2024 Free T4 [Mass/Vol] 1.60 ng/dL High 0.76-1.46 [facility] TSH DL <= 0.005 mIU/L QnOrde red By: Delma Bland on 06-08-2024 TSH Qn 1.900 uIU/mL 0.300-4.200 [facility] Thyroid Stim Hormone (TSH)on 06-08-2024 TSH 1.900 uIU/mL Normal 0.300-4.200 [facility] Comment on above: Order Comment: Order Date: 05/09/24Order Info: [id number] - CMPOrder Info: [id number] - LIPIDOrder Info: [id number] - TSHOrder Info: [id number] - PSAOrder Info: 7 - T4F Performed By: #### L 501.9910, L501.9520, L500.4100, L501.9985, L500.4050 ####[facility] [address] [place], [address] Total proteinOrdered By: Vj Bland on 06-08-2024 Protein [Mass/Vol] 7.1 g/dL 5.9-8.4 [facility] Triglycerides measurementOrd ered By: Delma Bland on 06-08-2024 Triglyceride [Mass/Vol] 73 mg/dL <199 [facility] Comment on above: The drugs N-Acetylcy steine and Metamizole may falsely depress this assay. Normal range: <150 mg/dLBorderline High: 150-199 mg/dLHigh: 200-499 mg/dLVery High: >500 mg/dL White blood cell (WBC) count Ordered By: Delma Bland on 06-08-2024 WBC (Bld) [#/Vol] 7.3 10*3/uL 4.4-11.0 [facility] Re-Evalution OTon 05-18-2024 Re-Evalution OT [facility] [address] [place] [address] / REEVALUATION / MEDICARE RECERTIFICATION OCCUPATIONAL THERAPY MR#: [id number] Acct: [id number] Name: SILVIA NICOLE II Rep #: [id number] : 1945 78 From: Keely Styles Referring [...] tolerated and transition to HEP. 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 Sincerely, Keely Styles 05/18/24 1117 CC: Dr. Delma Bland MD; Dr. Amadeo Longo, [place] Signed For Medicare only, by signing this I certify the plan of care. Physicians Signature Date Normal [facility] Ferritinon 05-06-2024 Ferritin [Mass/Vol] 210 ng/mL Normal 37-417 [facility] Comment on above: Order Comment: ROBERTO Juares ADD IBC FE B12 TO BLOOD DRAWN 05/04/24 PER Order Date: 01/12/24Order Info: [id number] - CMPOrder Info: [id number] - LIPIDOrder Info: [id number] - TSHOrder Info: [id number] - T4F Performed By: #### L 503.6030, L503.0106, L503.6550 ####[facility] [address] [place], [address] Iron+Iron Binding Capacityon 05-06-2024 Iron [Mass/Vol] 105 ug/dL Normal 65-175 [facility] Comment on above: Order Comment: ROBERTO Juares ADD IBC FE B12 TO BLOOD DRAWN 05/04/24 PER Order Date: 01/12/24Order Info: 86-1 - CMPOrder Info: [id number] - LIPIDOrder Info: 3 - TSHOrder Info: 7 - T4F Performed By: #### L 503.6030, L503.0106, L503.6550 ####[facility] [address] [place], [address] IRON SATURATION 39.0 Normal 9-55 [facility] Comment on above: Order Comment: ROBERTO Juares ADD IBC FE B12 TO BLOOD DRAWN 05/04/24 PER Order Date: 01/12/24Order Info: [id number] - CMPOrder Info: [id number] - LIPIDOrder Info: 3 - TSHOrder Info: 7 - T4F Performed By: #### L 503.6030, L503.0106, L503.6550 ####[facility] [address] [place], [address] TIBC 271 ug/dL Normal 250-450 [facility] Comment on above: Order Comment: ROBERTO Juares ADD IBC FE B12 TO BLOOD DRAWN 05/04/24 PER Order Date: 01/12/24Order Info: [id number] - CMPOrder Info: [id number] - LIPIDOrder Info: 3 - TSHOrder Info: 7 - T4F Performed By: #### L 503.6030, L503.0106, L503.6550 ####[facility] [address] [place], [address] UIBC 166 ug/dL Low 228-428 [facility] Comment on above: Order Comment: ROBERTO Juares ADD IBC FE B12 TO BLOOD DRAWN 05/04/24 PER Order Date: 01/12/24Order Info: [id number] - CMPOrder Info: [id number] - LIPIDOrder Info: 3 - TSHOrder Info: [id number] - T4F Performed By: #### L 503.6030, L503.0106, L503.6550 ####[facility] [address] [place], [address] L503.0106on 05-06-2024 Cobalamin (Vitamin B12) [Mass/Vol] 313 pg/mL Normal 180-914 [facility] Comment on above: Order Comment: ROBERTO Juares ADD [facility] FE B12 TO BLOOD DRAWN 05/04/24 PER Order Date: 01/12/24Order Info: [id number] - CMPOrder Info: [id number] - LIPIDOrder Info: 3 - TSHOrder Info: [id number] - T4F Performed By: #### L 503.6030, L503.0106, L503.6550 ####[facility] [address] [place], [place], [address] Absolute neutrophil countOrd ered By: Delma Bland on 05-04-2024 Neutrophils (Bld) [#/Vol] 3.4 10*3/uL 2.0-7.7 [facility] Anion gap in Serum or Plasma Ordered By: Delma Bland on 05-04-2024 Anion gap [Moles/Vol] 13 mmol/L 5- [facility] BUN/creatinine ratioOrdered By: Delma Bland on 05-04-2024 Urea nitrogen/Creatinine [Mass ratio] 14.9 mg/mg 10- [facility] Basophil percentageOrdered B y: Delma Bland on 05-04-2024 Basophils/100 WBC (Bld) 0.8 % 0-1 [facility] Bilirubin, totalOrdered By: Delma Bland on 05-04-2024 Bilirubin [Mass/Vol] 0.34 mg/dL 0.00-1.30 [facility] CBC W/Diff, Automatedon 04-22 Absolute Lymph 3.07 X10 3/uL Normal 0.83-4.51 [facility] Comment on above: Order Comment: Order Date: 01/12/24Order Info: [id number] - CBCD Performed By: #### L 500.4050, L500.4100, L506.0400, L100.0100, L501.9985, L501.9520 ####[facility] [address] [place], [address] Absolute Neut 3.4 X10 3/uL Normal 2.0-7.7 [facility] Comment on above: Order Comment: Order Date: 01/12/24Order Info: [id number] - CBCD Performed By: #### L 500.4050, L500.4100, L506.0400, L100.0100, L501.9985, L501.9520 ####[facility] [address] [place], [address] Basophils/100 WBC (Bld) 0.8 % Normal 0-1 [facility] Comment on above: Order Comment: Order Date: 01/12/24Order Info: [id number] - CBCD Performed By: #### L 500.4050, L500.4100, L506.0400, L100.0100, L501.9985, L501.9520 ####[facility] [address] [place], [address] Eosinophils/100 WBC (Bld) 1.0 % Normal 0-5 [facility] Comment on above: Order Comment: Order Date: 01/12/24Order Info: [id number] - CBCD Performed By: #### L 500.4050, L500.4100, L506.0400, L100.0100, L501.9985, L501.9520 ####[facility] [address] [place], [address] Erythrocyte distribution width (RBC) [Ratio] 12.1 % Normal 11.6-14.6 [facility] Comment on above: Order Comment: Order Date: 01/12/24Order Info: [id number] - CBCD Performed By: #### L 500.4050, L500.4100, L506.0400, L100.0100, L501.9985, L501.9520 ####[facility] [address] [place], [address] Hematocrit (Bld) [Volume fraction] 38.8 % Low 40-54 [facility] Comment on above: Order Comment: Order Date: 01/12/24Order Info: 0184-1 - CBCD Performed By: #### L 500.4050, L500.4100, L506.0400, L100.0100, L501.9985, L501.9520 ####[facility] [id number] [place], [address] Hemoglobin (Bld) [Mass/Vol] 12.9 g/dL Low 13.0-16.5 [facility] Comment on above: Order Comment: Order Date: 01/12/24Order Info: 018- - CBCD Performed By: #### L 500.4050, L500.4100, L506.0400, L100.0100, L501.9985, L501.9520 ####[facility] [place] [id number] [place], [address] IG% 0.100 Normal 0.0-0.9 [facility] Comment on above: Order Comment: Order Date: 01/12/24Order Info: 0184- - CBCD Result Comment: IG% - Immature Granulocytes (promyelocytes, myelocytes and metamyelocytes) > 1% indicates that a LEFT SHIFT is Present. Performed By: #### L 500.4050, L500.4100, L506.0400, L100.0100, L501.9985, L501.9520 ####[facility] [address] [place], [address] Lymphocytes/100 WBC (Bld) 42.9 % High 19-41 [facility] Comment on above: Order Comment: Order Date: 01/12/24Order Info: [id number] - CBCD Performed By: #### L 500.4050, L500.4100, L506.0400, L100.0100, L501.9985, L501.9520 ####[facility] [address] [place], [address] MCH (RBC) [Entitic mass] 32.3 pg High 27.0-32.0 [facility] Comment on above: Order Comment: Order Date: 01/12/24Order Info: [id number] - CBCD Performed By: #### L 500.4050, L500.4100, L506.0400, L100.0100, L501.9985, L501.9520 ####[facility] [address] [place], [address] MCHC (RBC) [Mass/Vol] 33.2 g/dL Normal 32-36 [facility] Comment on above: Order Comment: Order Date: 01/12/24Order Info: 018- - CBCD Performed By: #### L 500.4050, L500.4100, L506.0400, L100.0100, L501.9985, L501.9520 ####[facility] [address] [place], [address] MCV (RBC) [Entitic vol] 97.2 fL High 80-94 [facility] Comment on above: Order Comment: Order Date: 01/12/24Order Info: [id number] - CBCD Performed By: #### L 500.4050, L500.4100, L506.0400, L100.0100, L501.9985, L501.9520 ####[facility] [address] [place], [address] Monocytes/100 WBC (Bld) 7.3 % Normal 0-10 [facility] Comment on above: Order Comment: Order Date: 01/12/24Order Info: [id number] - CBCD Performed By: #### L 500.4050, L500.4100, L506.0400, L100.0100, L501.9985, L501.9520 ####[facility] [address] [place], [address] Neutrophils/100 WBC (Bld) 47.9 % Normal 47-70 [facility] Comment on above: Order Comment: Order Date: 01/12/24Order Info: [id number] - CBCD Performed By: #### L 500.4050, L500.4100, L506.0400, L100.0100, L501.9985, L501.9520 ####[facility] [address] [place], [address] Nucleated RBC (Bld) [#/Vol] 0 10*3/uL Normal 0-5 [facility] Comment on above: Order Comment: Order Date: 01/12/24Order Info: 018- - CBCD Performed By: #### L 500.4050, L500.4100, L506.0400, L100.0100, L501.9985, L501.9520 ####[facility] [address] [place], [address] Platelet mean volume (Bld) [Entitic vol] 11.0 fL Normal 6.2-12.0 [facility] Comment on above: Order Comment: Order Date: 01/12/24Order Info: [id number] - CBCD Performed By: #### L 500.4050, L500.4100, L506.0400, L100.0100, L501.9985, L501.9520 ####[facility] [address] [place], [address] Platelets (Bld) [#/Vol] 179 10*3/uL Normal 150-450 [facility] Comment on above: Order Comment: Order Date: 01/12/24Order Info: [id number] - CBCD Performed By: #### L 500.4050, L500.4100, L506.0400, L100.0100, L501.9985, L501.9520 ####[facility] [address] [place], [address] RBC (Bld) [#/Vol] 3.99 10*6/uL Low 4.6-6.2 [facility] Comment on above: Order Comment: Order Date: 01/12/24Order Info: [id number] - CBCD Performed By: #### L 500.4050, L500.4100, L506.0400, L100.0100, L501.9985, L501.9520 ####[facility] [address] [place], [address] RDW SD 44.0 fl High 35.1-43.9 [facility] Comment on above: Order Comment: Order Date: 01/12/24Order Info: 018- - CBCD Performed By: #### L 500.4050, L500.4100, L506.0400, L100.0100, L501.9985, L501.9520 ####[facility] [address] [place], [address] WBC (Bld) [#/Vol] 7.2 10*3/uL Normal 4.4-11.0 [facility] Comment on above: Order Comment: Order Date: 01/12/24Order Info: 018- - CBCD Performed By: #### L 500.4050, L500.4100, L506.0400, L100.0100, L501.9985, L501.9520 ####[facility] [address] [place], [place], [address] Calculated total iron bindin g capacityOrdered By: Delma Bland on 05-04-2024 Total Iron Binding Capacity 271 ug/dL 250-450 [facility] Calculated very low density lipoprotein (VLDL) cholesterol measurementOrdered By: Delma Bland on 05-04-2024 VLDL Cholesterol 11 mg/dL 5-40 [facility] Carbon dioxide, total [Moles /volume] in Central venous bloodOrdered By: Delma Bland on 05-04-2024 CO2 [Moles/Vol] 21.0 mmol/L 21.0-32.0 [facility] Chloride assayOrdered By: Viviana Bland on 05-04-2024 Chloride [Moles/Vol] 103 mmol/L 98-108 [facility] Comprehensive Metabolic Prof ilon 05-04-2024 Albumin [Mass/Vol] 4.3 g/dL Normal 3.4-4.8 [facility] Comment on above: Order Comment: Order Date: 01/12/24Order Info: [id number]- - CMPOrder Info: [id number] - LIPIDOrder Info: [id number] - TSHOrder Info: [id number] - T4F Performed By: #### L 500.4050, L500.4100, L506.0400, L100.0100, L501.9985, L501.9520 ####[facility] [address] [facility] [place], [place], [id number] Albumin/Globulin [Mass ratio] 1.6 {ratio} Normal 0.9-2.4 [facility] Comment on above: Order Comment: Order Date: 01/12/24Order Info: [id number] - CMPOrder Info: [id number] - LIPIDOrder Info: [id number] - TSHOrder Info: [id number] - T4F Performed By: #### L 500.4050, L500.4100, L506.0400, L100.0100, L501.9985, L501.9520 ####[facility] [address] [facility] [place], [place], [id number] ALK PHOS 71 U/L Normal 40-129 [facility] Comment on above: Order Comment: Order Date: 01/12/24Order Info: [id number]- - CMPOrder Info: [id number] - LIPIDOrder Info: [id number] - TSHOrder Info: [id number] - T4F Performed By: #### L 500.4050, L500.4100, L506.0400, L100.0100, L501.9985, L501.9520 ####[facility] [address] [place], [address] ALT [Catalytic activity/Vol] 14 U/L Normal <=46 [facility] Comment on above: Order Comment: Order Date: 01/12/24Order Info: [id number] - CMPOrder Info: [id number] - LIPIDOrder Info: [id number] - TSHOrder Info: [id number] - T4F Performed By: #### L 500.4050, L500.4100, L506.0400, L100.0100, L501.9985, L501.9520 ####[facility] [address] [place], [address] AST [Catalytic activity/Vol] 25 U/L Normal <=37 [facility] Comment on above: Order Comment: Order Date: 01/12/24Order Info: 07-1 - CMPOrder Info: [id number] - LIPIDOrder Info: [id number] - TSHOrder Info: [id number] - T4F Performed By: #### L 500.4050, L500.4100, L506.0400, L100.0100, L501.9985, L501.9520 ####[facility] [address] [place], [address] Bilirubin [Mass/Vol] 0.34 mg/dL Normal 0.00-1.30 [facility] Comment on above: Order Comment: Order Date: 01/12/24Order Info: [id number] - CMPOrder Info: [id number] - LIPIDOrder Info: [id number] - TSHOrder Info: [id number] - T4F Performed By: #### L 500.4050, L500.4100, L506.0400, L100.0100, L501.9985, L501.9520 ####[facility] [address] [place], [address] BUN/CRE 14.9 RATIO Normal 10-20 [facility] Comment on above: Order Comment: Order Date: 01/12/24Order Info: 86-1 - CMPOrder Info: [id number] - LIPIDOrder Info: 3 - TSHOrder Info: [id number] - T4F Performed By: #### L 500.4050, L500.4100, L506.0400, L100.0100, L501.9985, L501.9520 ####[facility] [address] [place], [address] Calcium [Mass/Vol] 9.4 mg/dL Normal 7.6-11.0 [facility] Comment on above: Order Comment: Order Date: 01/12/24Order Info: [id number]- - CMPOrder Info: - LIPIDOrder Info: [id number] - TSHOrder Info: 7 - T4F Performed By: #### L 500.4050, L500.4100, L506.0400, L100.0100, L501.9985, L501.9520 ####[facility] [address] [place], [address] Chloride [Moles/Vol] 103 mmol/L Normal 98-108 [facility] Comment on above: Order Comment: Order Date: 01/12/24Order Info: [id number] - CMPOrder Info: - LIPIDOrder Info: [id number] - TSHOrder Info: [id number] - T4F Performed By: #### L 500.4050, L500.4100, L506.0400, L100.0100, L501.9985, L501.9520 ####[facility] [address] [place], [address] CO2 [Moles/Vol] 21.0 mmol/L Normal 21.0-32.0 [facility] Comment on above: Order Comment: Order Date: 01/12/24Order Info: 86-1 - CMPOrder Info: [id number] - LIPIDOrder Info: 3 - TSHOrder Info: [id number] - T4F Performed By: #### L 500.4050, L500.4100, L506.0400, L100.0100, L501.9985, L501.9520 ####[facility] [address] [place], [place], [id number] Creatinine [Mass/Vol] 1.21 mg/dL High 0.70-1.20 [facility] Comment on above: Order Comment: Order Date: 01/12/24Order Info: 86-1 - CMPOrder Info: [id number] - LIPIDOrder Info: 3 - TSHOrder Info: 7 - T4F Performed By: #### L 500.4050, L500.4100, L506.0400, L100.0100, L501.9985, L501.9520 ####[facility] [address] [place], [place], [id number] GAP 13 Normal 5-15 [facility] Comment on above: Order Comment: Order Date: 01/12/24Order Info: [id number] - CMPOrder Info: [id number] - LIPIDOrder Info: 3 - TSHOrder Info: 7 - T4F Performed By: #### L 500.4050, L500.4100, L506.0400, L100.0100, L501.9985, L501.9520 ####[facility] [address] [place], [place], [address] GFR/1.73 sq M.predicted among non-blacks MDRD (S/P/Bld) [Vol rate/Area] 62 mL/min/{1.73_m2} Normal >60 [facility] Comment on above: Order Comment: Order Date: 01/12/24Order Info: [id number] - CMPOrder Info: [id number] - LIPIDOrder Info: 3 - TSHOrder Info: [id number] - T4F Result Comment: mL/m in/1.73m2 CKD-EPI Creatinine Equation (2020) Performed By: #### L 500.4050, L500.4100, L506.0400, L100.0100, L501.9985, L501.9520 ####[facility] [address] [place], [address] Globulin (S) [Mass/Vol] 2.7 g/dL Normal 2.2-4.2 [facility] Comment on above: Order Comment: Order Date: 01/12/24Order Info: [id number] - CMPOrder Info: [id number] - LIPIDOrder Info: [id number] - TSHOrder Info: [id number] - T4F Performed By: #### L 500.4050, L500.4100, L506.0400, L100.0100, L501.9985, L501.9520 ####[facility] [address] [place], [address] Glucose [Mass/Vol] 121 mg/dL High 70-99 [facility] Comment on above: Order Comment: Order Date: 01/12/24Order Info: [id number]- - CMPOrder Info: [id number] - LIPIDOrder Info: 63 - TSHOrder Info: [id number] - T4F Performed By: #### L 500.4050, L500.4100, L506.0400, L100.0100, L501.9985, L501.9520 ####[facility] [address] [place], [address] Potassium [Moles/Vol] 4.5 mmol/L Normal 3.3-5.1 [facility] Comment on above: Order Comment: Order Date: 01/12/24Order Info: 07-1 - CMPOrder Info: [id number] - LIPIDOrder Info: [id number] - TSHOrder Info: [id number] - T4F Performed By: #### L 500.4050, L500.4100, L506.0400, L100.0100, L501.9985, L501.9520 ####[facility] [address] [place], [address] Sodium [Moles/Vol] 136 mmol/L Normal 133-145 [facility] Comment on above: Order Comment: Order Date: 01/12/24Order Info: [id number] - CMPOrder Info: [id number] - LIPIDOrder Info: 3 - TSHOrder Info: 7 - T4F Performed By: #### L 500.4050, L500.4100, L506.0400, L100.0100, L501.9985, L501.9520 ####[facility] [address] [place], [address] T PROT 7.0 g/dL Normal 5.9-8.4 [facility] Comment on above: Order Comment: Order Date: 01/12/24Order Info: [id number] - CMPOrder Info: [id number] - LIPIDOrder Info: 3 - TSHOrder Info: 7 - T4F Performed By: #### L 500.4050, L500.4100, L506.0400, L100.0100, L501.9985, L501.9520 ####[facility] [address] [place], [place], [id number] Urea nitrogen [Mass/Vol] 18 mg/dL Normal 4-19 [facility] Comment on above: Order Comment: Order Date: 01/12/24Order Info: [id number] - CMPOrder Info: [id number] - LIPIDOrder Info: 3 - TSHOrder Info: [id number] - T4F Performed By: #### L 500.4050, L500.4100, L506.0400, L100.0100, L501.9985, L501.9520 ####[facility] [address] [place], [place], [address] Eosinophil percentageOrdered By: Delma Bland on 05-04-2024 Eosinophils/100 WBC (Bld) 1.0 % 0-5 [facility] Erythrocyte distribution wid th ratioOrdered By: Delma Bland on 05-04-2024 Erythrocyte distribution width (RBC) [Ratio] 12.1 % 11.6-14.6 [facility] Erythrocyte distribution wid th standard deviationOrdered By: Delma Bland on 05-04-2024 Erythrocyte distribution width (RBC) [Entitic vol] 44.0 fL High 35.1-43.9 [facility] GFR/1.73 sq M.predicted yamilka g non-blacks MDRD (S/P/Bld) [Vol rate/Area]Ordered By: Delma Bland on 05-04-2024 Estimated GFR (MDRD) Non-Af Amer 62 >60 [facility] Comment on above: mL/min/1.73m2 CKD-EP I Creatinine Equation (2020) Hematocrit Auto (Bld) [Volum e fraction]Ordered By: Delma Bland on 05-04-2024 Hematocrit (Bld) [Volume fraction] 38.8 % Low 40-54 [facility] Hemoglobin A1con 05-04-2024 HbA1c (Bld) [Mass fraction] 5.9 % Normal <=5.6 [facility] Comment on above: Order Comment: Order Date: 01/12/24Order Info: [id number] - A1C Performed By: #### L 500.4050, L500.4100, L506.0400, L100.0100, L501.9985, L501.9520 ####[facility] [address] [place], [address] Hemoglobin A1c percentageOrd ered By: Delma Bland on 05-04-2024 HbA1c (Bld) [Mass fraction] 5.9 % >5.7 [facility] Hemoglobin measurementOrdere d By: Delma Bland on 05-04-2024 Hemoglobin (Bld) [Mass/Vol] 12.9 g/dL Low 13.0-16.5 [facility] Immature granulocytes/100 WB C Auto (Bld)Ordered By: Delma Bland on 05-04-2024 Immature granulocytes/100 WBC (Bld) 0.100 % 0.0-0.9 [facility] Comment on above: IG% - Immature Granu locytes (promyelocytes, myelocytes and metamyelocytes) > 1% indicates that a LEFT SHIFT is Present. Iron (Unsp spec) [Mass/Mass] Ordered By: Delma Bland on 05-04-2024 Iron [Mass/Vol] 105 ug/dL 65-175 [facility] Iron saturation [Mass fracti on]Ordered By: Delma Bland on 05-04-2024 Iron Saturation 39.0 % 9-55 [facility] LDL calc ser/plasOrdered By: Delma Bland on 05-04-2024 LDL Cholesterol, Calculated 69 mg/dL [facility] Comment on above: Tlxhjxtwti=917-175 m g/dL & Higher Owwg=793 mg/dL or greater Laboratory - Chemistry and C hemistry - challengeOrdered By: Delma Bland on 05-04-2024 AST [Catalytic activity/Vol] 25 U/L <38 [facility] Lipid Profileon 05-04-2024 CHOL:HDL 2.48 Normal [facility] Comment on above: Order Comment: Order Date: 01/12/24Order Info: [id number] - CMPOrder Info: [id number] - LIPIDOrder Info: [id number] - TSHOrder Info: [id number] - T4F Performed By: #### L 500.4050, L500.4100, L506.0400, L100.0100, L501.9985, L501.9520 ####[facility] [address] [place], [address] Cholesterol [Mass/Vol] 135 mg/dL Normal <=200 [facility] Comment on above: Order Comment: Order Date: 01/12/24Order Info: [id number] - CMPOrder Info: [id number] - LIPIDOrder Info: [id number] - TSHOrder Info: [id number] - T4F Result Comment: Chol esterol level, Desirable <200 mg/dL Borderline high cholesterol 200-239 mg/dL High cholesterol >=240 mg/dL Recommendations of the NCEP Adult Treatment Panel for the following risk-cutoff thresholds for the [place] population. Performed By: #### L 500.4050, L500.4100, L506.0400, L100.0100, L501.9985, L501.9520 ####[facility] [address] [place], [address] Cholesterol in HDL [Mass/Vol] 55 mg/dL Normal [facility] Comment on above: Order Comment: Order Date: 01/12/24Order Info: [id number] - CMPOrder Info: [id number] - LIPIDOrder Info: [id number] - TSHOrder Info: [id number] - T4F Result Comment: [place] onal Cholesterol Education Program (NCEP) guidelines: <40 mg/dL: Low HDL-cholesterol (major risk factor for CHD) >= 60 mg/dL: High HDL-cholesterol (negative risk factor for CHD) HDL-cholesterol is affected by a number of factors, e.g. smoking, exercise, hormones, sex and age. Performed By: #### L 500.4050, L500.4100, L506.0400, L100.0100, L501.9985, L501.9520 ####[facility] [address] [place], [address] Cholesterol in LDL [Mass/Vol] 69 mg/dL Normal [facility] Comment on above: Order Comment: Order Date: 01/12/24Order Info: [id number] - CMPOrder Info: - LIPIDOrder Info: [id number] - TSHOrder Info: [id number] - T4F Result Comment: Bord naiqqh=431-453 mg/dL Higher Tdoo=566 mg/dL or greater Performed By: #### L 500.4050, L500.4100, L506.0400, L100.0100, L501.9985, L501.9520 ####[facility] [address] [place], [address] Cholesterol in VLDL [Mass/Vol] 11 mg/dL Normal 5-40 [facility] Comment on above: Order Comment: Order Date: 01/12/24Order Info: 07 - CMPOrder Info: [id number] - LIPIDOrder Info: [id number] - TSHOrder Info: 7 - T4F Performed By: #### L 500.4050, L500.4100, L506.0400, L100.0100, L501.9985, L501.9520 ####[facility] [address] [place], [address] Triglyceride [Mass/Vol] 57 mg/dL Normal [facility] Comment on above: Order Comment: Order Date: 01/12/24Order Info: [id number] - CMPOrder Info: [id number] - LIPIDOrder Info: [id number] - TSHOrder Info: [id number] - T4F Result Comment: The drugs N-Acetylcysteine and Metamizole may falsely depress this assay. Normal range: <150 mg/dL Borderline High: 150-199 mg/dL High: 200-499 mg/dL Very High: >500 mg/dL Performed By: #### L 500.4050, L500.4100, L506.0400, L100.0100, L501.9985, L501.9520 ####[facility] [address] [place], [place], [address] Lymphocytes Auto (Unsp spec) [#/Vol]Ordered By: Delma Bland on 05-04-2024 Lymphocytes (Bld) [#/Vol] 3.07 10*3/uL 0.83-4.51 [facility] Lymphocytes/100 WBC Auto (Un sp spec)Ordered By: Delma Bland on 05-04-2024 Lymphocytes/100 WBC (Bld) 42.9 % High 19-41 [facility] MCV (mean corpuscular volume ) determinationOrdered By: Delma Bland on 05-04-2024 MCV (RBC) [Entitic vol] 97.2 fL High 80-94 [facility] Mean corpuscular hemoglobin (MCH) determinationOrdered By: Delma Bland on 05-04-2024 MCH (RBC) [Entitic mass] 32.3 pg High 27.0-32.0 [facility] Mean corpuscular hemoglobin concentration (MCHC) determinationOrdered By: Delma Bland on 05-04-2024 MCHC (RBC) [Mass/Vol] 33.2 g/dL 32-36 [facility] Mean platelet volume determi nationOrdered By: Delma Bland on 05-04-2024 Platelet mean volume (Bld) [Entitic vol] 11.0 fL 6.2-12.0 [facility] Monocyte percentageOrdered B y: Delma Bland on 05-04-2024 Monocytes/100 WBC (Bld) 7.3 % 0-10 [facility] Neutrophil percentageOrdered By: Delma Bland on 05-04-2024 Neutrophils/100 WBC (Bld) 47.9 % 47-70 [facility] No Panel InformationOrdered By: Delma Bland on 05-04-2024 Unsaturated Iron Binding Capacity 166 ug/dL Low 228-428 [facility] Nucleated red blood cell per centageOrdered By: Delma Bland on 05-04-2024 Nucleated RBC/100 WBC (Bld) [Ratio] 0 % 0-5 [facility] Platelet countOrdered By: Viviana Bland on 05-04-2024 Platelets (Bld) [#/Vol] 179 10*3/uL 150-450 [facility] Potassium (Unsp spec) [Mass/ Vol]Ordered By: Delma Bland on 05-04-2024 Potassium [Moles/Vol] 4.5 mmol/L 3.3-5.1 [facility] RBC Auto (Bld) [#/Vol]Ordere d By: Delma Bland on 05-04-2024 RBC (Bld) [#/Vol] 3.99 10*6/uL Low 4.6-6.2 [facility] Screening total cholesterol/ high density lipoprotein (HDL) cholesterol ratioOrdered By: Delma Bland on 05-04-2024 Cholesterol.total/Choles terol in HDL [Mass ratio] 2.48 {ratio} [facility] Serum creatinine measurement (mass/volume)Ordered By: Delma Bland on 05-04-2024 Creatinine [Mass/Vol] 1.21 mg/dL High 0.70-1.20 [facility] Serum globulin measurementOr dered By: Delma Bland on 05-04-2024 Globulin (S) [Mass/Vol] 2.7 g/dL 2.2-4.2 [facility] Serum glucose measurement (m ass/volume)Ordered By: Delma Bland on 05-04-2024 Glucose [Mass/Vol] 121 mg/dL High 70-99 [facility] Serum or plasma alanine hunter otransferase (ALT) measurementOrdered By: Delma Bland on 05-04-2024 ALT [Catalytic activity/Vol] 14 U/L <47 [facility] Serum or plasma albumin linda urement (mass/volume)Ordered By: Delma Bland on 05-04-2024 Albumin [Mass/Vol] 4.3 g/dL 3.4-4.8 [facility] Serum or plasma albumin/glob ulin mass ratioOrdered By: Delma Bland on 05-04-2024 Albumin/Globulin [Mass ratio] 1.6 {ratio} 0.9-2.4 [facility] Serum or plasma alkaline cesar sphatase measurementOrdered By: Delma Bland on 05-04-2024 ALP [Catalytic activity/Vol] 71 U/L 40-129 [facility] Serum or plasma calcium linda urement (mass/volume)Ordered By: Delma Bland on 05-04-2024 Calcium [Mass/Vol] 9.4 mg/dL 7.6-11.0 [facility] Serum or plasma cholesterol in HDL measurement (mass/volume)Ordered By: Delma Bland on 05-04-2024 Cholesterol in HDL [Mass/Vol] 55 mg/dL >40 [facility] Comment on above: National Cholesterol Education Program (NCEP) guidelines:<40 mg/dL: Low HDL-cholesterol (major risk factor for CHD)>= 60 mg/dL: High HDL-cholesterol (negative risk factor for CHD)HDL-cholesterol is affected by a number of factors, e.g. smoking, exercise, hormones, sex and age. Serum or plasma cholesterol measurement (mass/volume)Ordered By: Delma Bland on 05-04-2024 Cholesterol [Mass/Vol] 135 mg/dL <201 [facility] Comment on above: Cholesterol level, D esirable <200 mg/dLBorderline high cholesterol 200-239 mg/dLHigh cholesterol >=240 mg/dLRecommendations of the NCEP Adult Treatment Panel for the following risk-cutoff thresholds for the [place] population. Serum or plasma ferritin noel surement (mass/volume)Ordered By: Delma Bland on 05-04-2024 Ferritin [Mass/Vol] 210 ng/mL 37-417 [facility] Serum or plasma urea nitroge n measurement (mass/volume)Ordered By: Delma Bland on 05-04-2024 Urea nitrogen [Mass/Vol] 18 mg/dL 4-19 [facility] Sodium levelOrdered By: Delma Bland on 05-04-2024 Sodium [Moles/Vol] 136 mmol/L 133-145 [facility] T4 Free Directon 05-04-2024 T4 FREE DIRECT 1.60 ng/dL High 0.76-1.46 [facility] Comment on above: Order Comment: Order Date: 01/12/24Order Info: [id number] CMPOrder Info: [id number] - LIPIDOrder Info: 3 - TSHOrder Info: 7 - T4F Performed By: #### L [id number], L500.4100, L506.0400, L100.0100, L501.9985, L501.9520 ####[facility] [id number] [place], [place], [id number] T4 freeOrdered By: Delma ayala on 05-04-2024 Free T4 [Mass/Vol] 1.60 ng/dL High 0.76-1.46 [facility] TSH DL <= 0.005 mIU/L QnOrde red By: Delma Bland on 05-04-2024 Thyroid Stimulating Hormone (TSH) 2.360 uIU/mL 0.300-4.200 [facility] Thyroid Stim Hormone (TSH)on 05-04-2024 TSH 2.360 uIU/mL Normal 0.300-4.200 [facility] Comment on above: Order Comment: Order Date: 01/12/24Order Info: 0786- - CMPOrder Info: [id number] - LIPIDOrder Info: 63 - TSHOrder Info: 3027 - T4F Performed By: #### L 500.4050, L500.4100, L506.0400, L100.0100, L501.9985, L501.9520 ####[facility] [address] [place], [place], [id number] Total proteinOrdered By: Vj Bland on 05-04-2024 Protein [Mass/Vol] 7.0 g/dL 5.9-8.4 [facility] Triglycerides measurementOrd ered By: Delma Bland on 05-04-2024 Triglyceride [Mass/Vol] 57 mg/dL <199 [facility] Comment on above: The drugs N-Acetylcy steine and Metamizole may falsely depress this assay. Normal range: <150 mg/dLBorderline High: 150-199 mg/dLHigh: 200-499 mg/dLVery High: >500 mg/dL Vitamin B12 ser/plasOrdered By: Delma Bland on 05-04-2024 Cobalamin (Vitamin B12) [Mass/Vol] 313 pg/mL 180-914 [facility] White blood cell (WBC) count Ordered By: Delma Bland on 05-04-2024 WBC (Bld) [#/Vol] 7.2 10*3/uL 4.4-11.0 [facility] OT General Evaluationon 03-25 OT General Evaluation [facility] Occupational Therapy [facility] [place] [address] / REHABILITATION SERVICES INITIAL EVALUATION MR#: [id number] Acct: [id number] Name: SILVIA NICOLE II Rep #: [id number] : 1945 78 From: Keely Styles Referring [...] [address] 35 UD 35 Strength Storage Solutions Architect: R 65# L 90# Lateral Pinch: R 13# L 13# Tripod Pinch: R 12# L 12# Edema Wrist: R 17 cm L 16.5 cm Sensation Sensation Comments: denies numbness and tingling states a small bit in IF Quick DASH-Disab of Arm,Shoulder Hand Quick DASH Score: 54.5450 Goals Goal:ROM equal to unaffected hand: Yes Goal:Storage Solutions Architect/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 at least 75% of unaffected hand: [...] to be FAXED BACK to us at [phone] for Medicare purposes. Please let me know if there are questions or concerns regarding this plan of care. Physician Signature: D ate: 04/04/24 1325 CC: Dr. Delma Bland MD; Dr. Amadeo Longo, [place] Signed For Medicare only, by signing this I certify the plan of care. Physicians Signature Date Normal [facility] CBC W/Diff, Automatedon 11 Absolute Lymph 3.18 X10 3/uL Normal 0.83-4.51 [facility] Comment on above: Order Comment: Order Date: 09/16/23 Order Info: 0184-1 - CBCD Performed By: #### L 506.0400, L500.4050, L100.0100, L501.9985, L501.9520, L500.4100 #### [facility] [address] [place], [address] Absolute Neut 2.5 X10 3/uL Normal 2.0-7.7 [facility] Comment on above: Order Comment: Order Date: 09/16/23 Order Info: 0184-1 - CBCD Performed By: #### L 506.0400, L500.4050, L100.0100, L501.9985, L501.9520, L500.4100 #### [facility] [address] [place], [address] Basophils/100 WBC (Bld) 0.8 % Normal 0-1 [facility] Comment on above: Order Comment: Order Date: 09/16/23 Order Info: 0184-1 - CBCD Performed By: #### L 506.0400, L500.4050, L100.0100, L501.9985, L501.9520, L500.4100 #### [facility] [address] [place], [address] Eosinophils/100 WBC (Bld) 2.0 % Normal 0-5 [facility] Comment on above: Order Comment: Order Date: 09/16/23 Order Info: 0184-1 - CBCD Performed By: #### L 506.0400, L500.4050, L100.0100, L501.9985, L501.9520, L500.4100 #### [facility] [address] [place], [address] Erythrocyte distribution width (RBC) [Ratio] 12.2 % Normal 11.6-14.6 [facility] Comment on above: Order Comment: Order Date: 09/16/23 Order Info: 0184- - CBCD Performed By: #### L 506.0400, L500.4050, L100.0100, L501.9985, L501.9520, L500.4100 #### [facility] [address] [place], [address] Hematocrit (Bld) [Volume fraction] 41.8 % Normal 40-54 [facility] Comment on above: Order Comment: Order Date: 09/16/23 Order Info: 0184- - CBCD Performed By: #### L 506.0400, L500.4050, L100.0100, L501.9985, L501.9520, L500.4100 #### [facility] [address] [place], [address] Hemoglobin (Bld) [Mass/Vol] 13.2 g/dL Normal 13.0-16.5 [facility] Comment on above: Order Comment: Order Date: 09/16/23 Order Info: 0184-1 - CBCD Performed By: #### L 506.0400, L500.4050, L100.0100, L501.9985, L501.9520, L500.4100 #### [facility] [address] [place], [address] IG% 0.200 Normal 0.0-0.9 [facility] Comment on above: Order Comment: Order Date: 09/16/23 Order Info: 0184-1 - CBCD Result Comment: IG% - Immature Granulocytes (promyelocytes, myelocytes and metamyelocytes) > 1% indicates that a LEFT SHIFT is Present. Performed By: #### L 506.0400, L500.4050, L100.0100, L501.9985, L501.9520, L500.4100 #### [facility] [address] [facility] [place], [address] Lymphocytes/100 WBC (Bld) 48.8 % High 19-41 [facility] Comment on above: Order Comment: Order Date: 09/16/23 Order Info: 0184-1 - CBCD Performed By: #### L 506.0400, L500.4050, L100.0100, L501.9985, L501.9520, L500.4100 #### [facility] [address] [facility] [place] [place], [address] MCH (RBC) [Entitic mass] 32.2 pg High 27.0-32.0 [facility] Comment on above: Order Comment: Order Date: 09/16/23 Order Info: 0184-1 - CBCD Performed By: #### L 506.0400, L500.4050, L100.0100, L501.9985, L501.9520, L500.4100 #### [facility] [address] [place], [address] MCHC (RBC) [Mass/Vol] 31.6 g/dL Low 32-36 [facility] Comment on above: Order Comment: Order Date: 09/16/23 Order Info: 0184-1 - CBCD Performed By: #### L 506.0400, L500.4050, L100.0100, L501.9985, L501.9520, L500.4100 #### [facility] [address] [place], [address] MCV (RBC) [Entitic vol] 102.0 fL High 80-94 [facility] Comment on above: Order Comment: Order Date: 09/16/23 Order Info: 0184-1 - CBCD Performed By: #### L 506.0400, L500.4050, L100.0100, L501.9985, L501.9520, L500.4100 #### [facility] [address] [place], [address] Monocytes/100 WBC (Bld) 9.4 % Normal 0-10 [facility] Comment on above: Order Comment: Order Date: 09/16/23 Order Info: 0184-1 - CBCD Performed By: #### L 506.0400, L500.4050, L100.0100, L501.9985, L501.9520, L500.4100 #### [facility] [address] [place], [address] Neutrophils/100 WBC (Bld) 38.8 % Low 47-70 [facility] Comment on above: Order Comment: Order Date: 09/16/23 Order Info: 0184-1 - CBCD Performed By: #### L 506.0400, L500.4050, L100.0100, L501.9985, L501.9520, L500.4100 #### [facility] [address] [place], [address] Nucleated RBC (Bld) [#/Vol] 0 10*3/uL Normal 0-5 [facility] Comment on above: Order Comment: Order Date: 09/16/23 Order Info: 0184-1 - CBCD Performed By: #### L 506.0400, L500.4050, L100.0100, L501.9985, L501.9520, L500.4100 #### [facility] [address] [place], [address] Platelet mean volume (Bld) [Entitic vol] 11.4 fL Normal 6.2-12.0 [facility] Comment on above: Order Comment: Order Date: 09/16/23 Order Info: 0184-1 - CBCD Performed By: #### L 506.0400, L500.4050, L100.0100, L501.9985, L501.9520, L500.4100 #### [facility] [address] [place], [address] Platelets (Bld) [#/Vol] 132 10*3/uL Low 150-450 [facility] Comment on above: Order Comment: Order Date: 09/16/23 Order Info: 0184-1 - CBCD Performed By: #### L 506.0400, L500.4050, L100.0100, L501.9985, L501.9520, L500.4100 #### [facility] [address] [place], [address] RBC (Bld) [#/Vol] 4.10 10*6/uL Low 4.6-6.2 [facility] Comment on above: Order Comment: Order Date: 09/16/23 Order Info: 0184-1 - CBCD Performed By: #### L 506.0400, L500.4050, L100.0100, L501.9985, L501.9520, L500.4100 #### [facility] [address] [place], [address] RDW SD 45.6 fl High 35.1-43.9 [facility] Comment on above: Order Comment: Order Date: 09/16/23 Order Info: 0184-1 - CBCD Performed By: #### L 506.0400, L500.4050, L100.0100, L501.9985, L501.9520, L500.4100 #### [facility] [address] [place], [address] WBC (Bld) [#/Vol] 6.5 10*3/uL Normal 4.4-11.0 [facility] Comment on above: Order Comment: Order Date: 09/16/23 Order Info: 0184-1 - CBCD Performed By: #### L 506.0400, L500.4050, L100.0100, L501.9985, L501.9520, L500.4100 #### [facility] [address] [place], [address] Comprehensive Metabolic Prof [facility] 01-11-2024 Albumin [Mass/Vol] 3.8 g/dL Normal 3.2-5.0 [facility] Comment on above: Order Comment: Order Date: 09/16/23 Order Info: 0786-1 - CMP Order Info: 31786-0 - LIPID Order Info: 6-3 - TSH Order Info: 302-7 - T4F Performed By: #### L 506.0400, L500.4050, L100.0100, L501.9985, L501.9520, L500.4100 #### [facility] [address] [place], [address] Albumin/Globulin [Mass ratio] 1.2 {ratio} Normal 0.9-2.4 [facility] Comment on above: Order Comment: Order Date: 09/16/23 Order Info: 0786-1 - CMP Order Info: [id number] - LIPID Order Info: 3016-3 - TSH Order Info: 3024-7 - T4F Performed By: #### L 506.0400, L500.4050, L100.0100, L501.9985, L501.9520, L500.4100 #### [facility] [address] [place], [address] ALK P 74 U/L Normal 45-117 [facility] Comment on above: Order Comment: Order Date: 09/16/23 Order Info: 86-1 - CMP Order Info: 05935-2 - LIPID Order Info: 3015-3 - TSH Order Info: 3024-7 - T4F Performed By: #### L 506.0400, L500.4050, L100.0100, L501.9985, L501.9520, L500.4100 #### [facility] [address] [place], [address] ALT [Catalytic activity/Vol] 17 U/L Normal 16-61 [facility] Comment on above: Order Comment: Order Date: 09/16/23 Order Info: 86-1 - CMP Order Info: 40599-5 - LIPID Order Info: 3 - TSH Order Info: 3024-7 - T4F Performed By: #### L 506.0400, L500.4050, L100.0100, L501.9985, L501.9520, L500.4100 #### [facility] [address] [place], [address] AST [Catalytic activity/Vol] 29 U/L Normal 15-37 [facility] Comment on above: Order Comment: Order Date: 09/16/23 Order Info: 86-1 - CMP Order Info: 70750-5 - LIPID Order Info: 6-3 - TSH Order Info: 3024-7 - T4F Performed By: #### L 506.0400, L500.4050, L100.0100, L501.9985, L501.9520, L500.4100 #### [facility] [address] [place], [address] Bilirubin [Mass/Vol] 0.60 mg/dL Normal 0.20-1.00 [facility] Comment on above: Order Comment: Order Date: 09/16/23 Order Info: 86-1 - CMP Order Info: [id number] - LIPID Order Info: 3016-3 - TSH Order Info: 3024-7 - T4F Result Comment: For patients on eltrombopag therapy, use of Dimension [place] TBIL is not recommended. Performed By: #### L 506.0400, L500.4050, L100.0100, L501.9985, L501.9520, L500.4100 #### [facility] [address] [place], [address] BUN/CRE 15.9 RATIO Normal 10-20 [facility] Comment on above: Order Comment: Order Date: 09/16/23 Order Info: 785- - CMP Order Info: - LIPID Order Info: 3 - TSH Order Info: 7 - T4F Performed By: #### L 506.0400, L500.4050, L100.0100, L501.9985, L501.9520, L500.4100 #### [facility] [address] [place], [address] CA,Total 9.0 mg/dL Normal 8.5-10.1 [facility] Comment on above: Order Comment: Order Date: 09/16/23 Order Info: 785-02 - CMP Order Info: - LIPID Order Info: 3 - TSH Order Info: 3027 - T4F Performed By: #### L 506.0400, L500.4050, L100.0100, L501.9985, L501.9520, L500.4100 #### [facility] [address] [place], [address] Chloride [Moles/Vol] 108 mmol/L High 98-107 [facility] Comment on above: Order Comment: Order Date: 09/16/23 Order Info: 785-02 - CMP Order Info: 73204-9 - LIPID Order Info: 3013 - TSH Order Info: 3024-7 - T4F Performed By: #### L 506.0400, L500.4050, L100.0100, L501.9985, L501.9520, L500.4100 #### [facility] [address] [place], [address] CO2 [Moles/Vol] 27.0 mmol/L Normal 21.0-32.0 [facility] Comment on above: Order Comment: Order Date: 09/16/23 Order Info: 785-1 - CMP Order Info: [id number] - LIPID Order Info: 3016-3 - TSH Order Info: 7 - T4F Performed By: #### L 506.0400, L500.4050, L100.0100, L501.9985, L501.9520, L500.4100 #### [facility] [address] [place], [address] Creatinine [Mass/Vol] 1.26 mg/dL Normal 0.70-1.30 [facility] Comment on above: Order Comment: Order Date: 09/16/23 Order Info: 785-02 - CMP Order Info: - LIPID Order Info: 3 - TSH Order Info: 7 - T4F Result Comment: The validity of the calculated GFR GFRAA in patients over 70 years has not been determined. Clinical correlation is essential. Performed By: #### L 506.0400, L500.4050, L100.0100, L501.9985, L501.9520, L500.4100 #### [facility] [address] [place], [address] EST GFR - AA 72 mL/min Normal >60 [facility] Comment on above: Order Comment: Order Date: 09/16/23 Order Info: 785-02 - CMP Order Info: [id number] - LIPID Order Info: [id number] - TSH Order Info: 30247 - T4F Result Comment: Afri can Bruneian GFR Calc Performed By: #### L 506.0400, L500.4050, L100.0100, L501.9985, L501.9520, L500.4100 #### [facility] [address] [place], [address] GAP 4 Low 5-15 [facility] Comment on above: Order Comment: Order Date: 09/16/23 Order Info: 07-1 - CMP Order Info: [id number] - LIPID Order Info: 301-3 - TSH Order Info: 3024-7 - T4F Performed By: #### L 506.0400, L500.4050, L100.0100, L501.9985, L501.9520, L500.4100 #### [facility] [address] [place], [address] GFR/1.73 sq M.predicted among non-blacks MDRD (S/P/Bld) [Vol rate/Area] 59 mL/min/{1.73_m2} Low >60 [facility] Comment on above: Order Comment: Order Date: 09/16/23 Order Info: 07-1 - CMP Order Info: [id number] - LIPID Order Info: 6-3 - TSH Order Info: 3024-7 - T4F Result Comment: Non- GFR Calc Performed By: #### L 506.0400, L500.4050, L100.0100, L501.9985, L501.9520, L500.4100 #### [facility] [address] [place], [address] Globulin (S) [Mass/Vol] 3.3 g/dL Normal 2.2-4.2 [facility] Comment on above: Order Comment: Order Date: 09/16/23 Order Info: 0786- - CMP Order Info: [id number] - LIPID Order Info: 3016-3 - TSH Order Info: 3024-7 - T4F Performed By: #### L 506.0400, L500.4050, L100.0100, L501.9985, L501.9520, L500.4100 #### [facility] [address] [place], [address] Glucose [Mass/Vol] 87 mg/dL Normal 74-106 [facility] Comment on above: Order Comment: Order Date: 09/16/23 Order Info: 785-1 - CMP Order Info: - LIPID Order Info: 3 - TSH Order Info: 3024-7 - T4F Performed By: #### L 506.0400, L500.4050, L100.0100, L501.9985, L501.9520, L500.4100 #### [facility] [address] [place], [address] Potassium [Moles/Vol] 4.0 mmol/L Normal 3.5-5.1 [facility] Comment on above: Order Comment: Order Date: 09/16/23 Order Info: 785-02 - CMP Order Info: - LIPID Order Info: 3015-04 - TSH Order Info: 7 - T4F Performed By: #### L 506.0400, L500.4050, L100.0100, L501.9985, L501.9520, L500.4100 #### [facility] [address] [place], [address] Sodium [Moles/Vol] 139 mmol/L Normal 136-145 [facility] Comment on above: Order Comment: Order Date: 09/16/23 Order Info: 785-02 - CMP Order Info: - LIPID Order Info: 3 - TSH Order Info: 30247 - T4F Performed By: #### L 506.0400, L500.4050, L100.0100, L501.9985, L501.9520, L500.4100 #### [facility] [address] [place], [address] T PROT 7.1 g/dL Normal 6.4-8.2 [facility] Comment on above: Order Comment: Order Date: 09/16/23 Order Info: 785-02 - CMP Order Info: - LIPID Order Info: 3 - TSH Order Info: 3024-7 - T4F Performed By: #### L 506.0400, L500.4050, L100.0100, L501.9985, L501.9520, L500.4100 #### [facility] [address] [place], [place], [address] Urea nitrogen [Mass/Vol] 20 mg/dL High 09-08 [facility] Comment on above: Order Comment: Order Date: 09/16/23 Order Info: 0786 - CMP Order Info: [id number] - LIPID Order Info: 3015-04 - TSH Order Info: 3023-08 - T4F Performed By: #### L 506.0400, L500.4050, L100.0100, L501.9985, L501.9520, L500.4100 #### [facility] [address] [place], [place], [address] Hemoglobin A1con 01-11-2024 HbA1c (Bld) [Mass fraction] 5.6 % Normal 3.8-5.6 [facility] Comment on above: Order Comment: Order Date: 09/16/23 Order Info: 4548-4 - A1C Result Comment: Norm al < 5.7 % Prediabetic 5.7 - 6.4 % Diabetic >or= 6.5 % Please note range changes. Performed By: #### L 506.0400, L500.4050, L100.0100, L501.9985, L501.9520, L500.4100 #### [facility] [address] [place], [place], [address] Lipid Profileon 01-11-2024 Cholesterol [Mass/Vol] 140 mg/dL Normal 200 [facility] Comment on above: Order Comment: Order Date: 09/16/23 Order Info: 0786 - CMP Order Info: [id number] - LIPID Order Info: 3 - TSH Order Info: 7 - T4F Result Comment: <200 mg/dL Desirable 200-240 mg/dL Borderline >240 mg/dL High Risk Performed By: #### L 506.0400, L500.4050, L100.0100, L501.9985, L501.9520, L500.4100 #### [facility] [address] [place], [address] Cholesterol in HDL [Mass/Vol] 53 mg/dL Normal [facility] Comment on above: Order Comment: Order Date: 09/16/23 Order Info: 0786 - CMP Order Info: [id number] - LIPID Order Info: 3 - TSH Order Info: 7 - T4F Result Comment: The drugs N-Acetylcysteine and Metamizole may falsely depress this assay. Reference Range HDL <40 mg/dL Low HDL Cholesterol HDL >or= 60 mg/dL High HDL Cholesterol Performed By: #### L 506.0400, L500.4050, L100.0100, L501.9985, L501.9520, L500.4100 #### [facility] [address] [place], [address] Cholesterol in LDL [Mass/Vol] 72 mg/dL Normal 0-130 [facility] Comment on above: Order Comment: Order Date: 09/16/23 Order Info: 07 - CMP Order Info: - LIPID Order Info: 3015-04 - TSH Order Info: 3023-08 - T4F Performed By: #### L 506.0400, L500.4050, L100.0100, L501.9985, L501.9520, L500.4100 #### [facility] [address] [place], [address] Cholesterol in VLDL [Mass/Vol] 15 mg/dL Normal 5-40 [facility] Comment on above: Order Comment: Order Date: 09/16/23 Order Info: 785-02 - CMP Order Info: - LIPID Order Info: 3015-04 - TSH Order Info: 3023-08 - T4F Performed By: #### L 506.0400, L500.4050, L100.0100, L501.9985, L501.9520, L500.4100 #### [facility] [address] [place], [address] Triglyceride [Mass/Vol] 74 mg/dL Normal [facility] Comment on above: Order Comment: Order Date: 09/16/23 Order Info: 785-02 - CMP Order Info: - LIPID Order Info: 3 - TSH Order Info: 7 - T4F Result Comment: The drugs N-Acetylcysteine and Metamizole may falsely depress this assay. Serum Triglycerides Reference Interval Normal <150 mg/dL Borderline high 150 - 199 mg/dL High 200 - 499 mg/dL Very High > or = 500 mg/dL Performed By: #### L 506.0400, L500.4050, L100.0100, L501.9985, L501.9520, L500.4100 #### [facility] [address] [place], [place], [address] T4 Free Directon 01-11-2024 T4 FREE DIRECT 1.01 ng/dL Normal 0.76-1.46 [facility] Comment on above: Order Comment: Order Date: 09/16/23 Order Info: 785-02 - CMP Order Info: - LIPID Order Info: 3 - TSH Order Info: 3023-08 - T4F Performed By: #### L 506.0400, L500.4050, L100.0100, L501.9985, L501.9520, L500.4100 #### [facility] [address] [place], [place], [address] Thyroid Stim Hormone (TSH)on 01-11-2024 TSH 3.440 uIU/mL Normal 0.358-3.740 [facility] Comment on above: Order Comment: Order Date: 09/16/23 Order Info: 785-02 - CMP Order Info: - LIPID Order Info: 3 - TSH Order Info: 3027 - T4F Performed By: #### L 506.0400, L500.4050, L100.0100, L501.9985, L501.9520, L500.4100 #### [facility] [address] [place], [address] OVon 11-17-2023 CNOV Office Visit (AKURFL) SILVIA NICOLE II ([id number]) 1945 M Date Time Provider Department 11/17/23 1:00 PM RITA CHAIDEZ JR During your visit today, we recorded the following information about you: Pulse Blood pressure 71/minute 122/78 Rita Chaidez Jr., MD 11/17/2023 1:30 PM Signed NEW PATIENT HISTORY AND PHYSICAL EXAM PATIENT INFO: Silvia Nicole II 77 year old REFERRING PROVIDER: Data Unavailable PCP: Delma Bland MD, MD HPI Silvia Nicole II is [...] Diagnosis:Renal cyst [N28.1] Order(s):UA DIP, URINE (POC) [[id number]] Order #: [id number]. #:[id number] US KIDNEY/BLADDER [[id number]] Order #: [id number] FUTURE Prescriptions as of 11/17/2023 - esomeprazole [...] for Encounter Date Provider Department Center 11/17/2023 [id number] CHAIDEZ JR*[facility] Encounter Status:Closed by RITA CHAIDEZ on 11/17/23 Normal [facility] UA DIP, URINE (POC)on 2023 BILIRUBIN UA (POCT) Negative Negative [facility] CLARITY UA (POCT) Clear [facility] COLOR UA (POCT) Yellow [facility] GLUCOSE UA (POCT) Negative Negative mg/dL [facility] Hemoglobin Ql (U) Negative Negative [facility] KETONE UA (POCT) Negative Negative mg/dL [facility] LEUKOCYTES UA (POCT) Negative Negative [facility] NITRITE UA (POCT) Negative Negative [facility] PH UA (POCT) 5.5 4.5 - 8.0 [facility] Protein Ql (U) Negative Negative mg/dL [facility] SPECIFIC GRAVITY UA (POCT) 1.015 1.005 - 1.030 [facility] UROBILINOGEN UA (POCT) 0.2 Charleen l E.U./dL [facility] Location:[facility], [address] [place] [address], [address] [place] [address] POINT OF CARE [facility] CNOVon 10-06-2023 CNOV Office Visit (GENSWS) SILVIA NICOLE II ([id number]) 1945 M Date Time Provider Department 10/06/23 10:00 AM DALIA HOLGUIN During your visit today, we recorded the following information about you: Dalia Holguin APRN.KENO WRITER/RUNNER 10/06/2023 11:29 AM Signed FOLLOW UP VISIT - ENDOSCOPY Silvia Nicole II 1945 [id number] REFERRING PHYSICIAN: Trice Montes [address] [facility] [id number] Silvia Nicole II is a patient I [...] recommend follow up endoscopy as symptoms dictate. updated and recall letter generated. Discussed treatment plan and patient voices understanding. Patient's questions answered appropriately. Return to the office as needed Dalia Holguin APRN.LEELEE Referring Provider: TRICE MONTES [[id number]] Allergies As of Date: 10/06/2023 Noted Allergy Reaction DECONGESTANT TABLET 09/20/2023 14 - Other: See Comments Comments: Avoids due to prostate issues. NAPROSYN (NAPROXEN) 09/20/2023 1 - Mental Status Change Comments: Agitation RAGWEED POLLEN 09/20/2023 14 - Other: See Comments Date Reviewed: 10/06/2023 Reviewed by: Dalia Holguin APRN.KENO WRITER/RUNNER - Fully Assessed Reason for Visit: Follow Up [171] Cmt: Review EGD results, review CT scan results. Primary Visit Diagnosis:Gastroesop hageal reflux disease with esophagitis without hemorrhage [K21.00] Other Visit Diagnosis:Cyst of right kidney [N28.1] Order(s):CONSULT TO NEPHROLOGY [9018] Order #: [id number]: 1 FUTURE esomeprazole (NEXIUM) 20 mg capsuleTake [...] Status:Closed by DALIA HOLGUIN on 10/06/23 Normal [facility] CT ABD/PEL W IVCONon 024 CT ABD/PEL W IVCON * * *Final Report* * * DATE OF EXAM: Sep 28 2023 2:39PM [facility] 0530 - CT ABD/PEL W IVCON / [...] of marked elevation of the left hemidiaphragm. Manager Area: FLORA Transcribe Date/Time: Sep 30 2023 12:01P Dictated by : BRINA LOONEY MD This examination was interpreted and the report reviewed and electronically signed by: BRINA LOONEY MD on Sep 30 2023 12:11PM EST [id number] Normal [facility] [id number] 09-24-2023 [id number] HNO ID: [id number] Author: BRENDA LANDA RN Service: ? Author Type: Registered Nurse Type: [id number] Filed: 09/24/2023 13:48 Note Text: The patient received a copy of EGD discharge instructions that contain information for how to contact the physician who performed the procedure and when to seek medical care. Brenda Landa RN [facility] EGD Study observation Narrat iveon 09-24-2023 [facility] Gastrointestinal Endoscopy Patient Name: Silvia Nicole Procedure Date: 09/24/2023 1:02 PM Date of : 1945 Admit Type: Outpatient Age: 77 Gender: Male Note Status: Finalized Procedure: Upper GI endoscopy Indications: Esophageal reflux Providers: Trice Montes MD Patient Profile: Refer to note in patient chart for documentation of history and physical. Referring Physician: Dalia Holguin (Referring ) Medicines: Midazolam 5 mg IV, Fentanyl 100 [...] Biopsied. Recommen (more content not included)... PROVATION [facility] Radiology Study observation (narrative) [facility] HISTORY PHYSICALon HISTORY PHYSICAL HNO ID: [id number] Author: TRICE MONTES MD Service: General Surgery [...] (FLONASE) 50 mcg/actuation nasal spray Use 1 Yreka in each nostril once daily. No current [...] entered by the nurse and reviewed by ky Nursing Notes: Tangela Nava RN 09/21/2023 12:20 [...] NOTES c (more content not included)... Normal [facility] NURSING PROGon 09-24-2023 NURSING PROG HNO ID: [id number] Author: BRENDA LANDA RN Service: ? Author [...] Family at bedside. Brenda Landa RN Normal [facility] SURGICAL PATHOLOGYon 024 CASE REPORT Normal [facility] Comment on above: Order Comment: Speci men Type: TISSUE SPECIMENOrdering Facility: [facility] Address: [address] [place] [address] Result Comment: [facility] Pathology Report Case: [id number] Authorizing Provider: Trice Montes MD Collected: 09/24/2023 01:29 PM Ordering Location: Ambulatory Surgery Received: 09/24/2023 03:09 PM Pathologist: Derek Redding MD Specimens: A) - Stomach, Antrum, Biopsy, Antral for H/H B) - Esophagogastric Junction, Biopsy, GE Junction bx Performed By: #### S ####[facility] LABCLIA [id number] [address] OF [place] FINAL DIAGNOSIS Normal [facility] Comment on above: Order Comment: Speci men Type: TISSUE SPECIMENOrdering Facility: [facility] Address: [address] [place] [address] Result Comment: A. S tomach, antrum, biopsy: - Antral mucosa with no significant pathologic change. - No morphologic evidence of Helicobacter. B. Esophagogastric junction, biopsy: - Squamocolumnar junctional mucosa (cardia-type) with mild chronic inflammation. - No intestinal metaplasia identified. Performed By: #### S ####[facility] LABCLIA [id number] [address] [facility] FINAL PERFORMING LAB Normal [facility] Comment on above: Order Comment: Speci men Type: TISSUE SPECIMENOrdering Facility: [facility] Address: [address] [place] [address] Result Comment: Diag nostic interpretation performed at [facility], [address] [place] [address] CLIA# [id number] Chairman & Co Founder: Josh Kinsey M.D. Performed By: #### S ####[facility] LABCLIA [id number] [address] OF [place] GROSS DESCRIPTION Normal [facility] Comment on above: Order Comment: Speci men Type: TISSUE SPECIMENOrdering Facility: [facility] Address: [address] [place] [address] Result Comment: A. S tomach, Antrum, Biopsy Received in formalin is one pieces of valdivia, soft tissue measuring 0.3 x 0.3 x 0.2 cm. Totally submitted in one cassette. B. Esophagogastric Junction, Biopsy Received in formalin are multiple pieces of valdivia, soft tissue aggregating to 0.4 x 0.2 x 0.2 cm. Totally submitted in one cassette. [place] [address] KK September 25, 2023 1:50 AM Performed By: #### S ####[facility] LABSARKIS [id number] [place] [address] [place] Upper GI endoscopyon 024 Upper GI endoscopy [facility] Gastrointestinal Endoscopy Patient Name: Silvia Nicole Procedure [...] available appointment. Procedure Code(s): --- Professional --- 20214, Esophagogastroduoden oscopy, flexible, transoral; with biopsy, single or multiple 48137, 59, Moderate sedation services provided by the same physician or other qualified health laboratory animal care veterinarian performing the diagnostic or therapeutic service that [...] of stomach and duodenum CPT copyright 2020 [employer]. All rights reserved. The codes documented in this report are preliminary and upon regional wildlife agent review may be revised to meet current compliance requir (more content not included)... Normal [facility] CNOVon 09-21-2023 CNOV Office Visit (GENSWS) SILVIA NICOLE II ([id number]) 1945 M Date Time Provider Department 09/21/23 11:00 AM DALIA HOLGUIN During your visit today, we recorded the following information about you: Temperature Pulse Blood pressure Weight 97.8 degrees 94/minute 112/68 82.6 kg Height 1.753 m Dalia Holguin APRN.KENO WRITER/RUNNER 09/24/2023 8:21 AM Addendum HISTORY AND PHYSICAL [...] (FLONASE) 50 mcg/actuation nasal spray Use 1 Yreka in each nostril once daily. No current [...] entered by the nurse and reviewed by me Nursing Notes: Tangela Nava RN 09/21/2023 12:20 PM Signed REVIEW OF SYSTEMS: General: The patient denies fatigue, denies weight loss, denies weight gain, denies feeling hot, and denies feelings of cold. Eyes: The patient denies glaucoma, de (more content not included)... Normal [facility] CNPNon 09-21-2023 LEELEEN Telephone (GENSANTIS) SILVIA NICOLE II ([id number]) 1945 M Date Time Provider Department 09/21/23 DALIA HOLGUIN During your visit today, we recorded the following information about you: Dalia Holguin APRN.CNP 09/21/2023 12:10 PM Signed Can we please request recent lab work done through Dr. Goldsmith office? Specifically looking for a CMP/BMP with creat AND GFR prior to CT with contrast. Thanks, SAM Minaya Rhonda, RN 09/23/2023 11:34 AM Signed View External Labs - CBC, CMP, TSH, T4, Lipid, Liver from [facility] [ID [id number]] Allergies As of Date: 09/21/2023 Noted Allergy Reaction DECONGESTANT TABLET 09/20/2023 14 - Other: See Comments Comments: Avoids due to prostate issues. NAPROSYN (NAPROXEN) 09/20/2023 1 - Mental Status Change Comments: Agitation RAGWEED POLLEN 09/20/2023 14 - Other: See Comments Date Reviewed: 09/21/2023 Reviewed by: Dalia Holguin APRN.KENO WRITER/RUNNER - Fully Assessed Prescriptions as of 09/24/2023 [...] Encounter Status:Closed by DALIA HOLGUIN on 09/24/23 [facility] Absolute lymphocyte countOrd ered By: Delma Bland on 03-16-2023 Lymphocytes Auto (Unsp spec) [#/Vol] 2.78 10*3/uL 0.83-4.51 [facility] Automated lymphocyte count a s percentage of total leukocytesOrdered By: Delma Bland on 03-16-2023 Lymphocytes/100 WBC Auto (Unsp spec) 37.7 % 19-41 [facility] Basophil percentageOrdered B y: Delma Bland on 03-16-2023 Basophils/100 WBC (Bld) 0.7 % 0-1 [facility] Bilirubin [Mass/Vol] 0.40 mg/dL 0.20-1.00 [facility] Comment on above: For patients on eltr ombopag therapy, use of Dimension [place] TBIL is not recommended. Chloride [Moles/Vol] 110 mmol/L 98-107 [facility] Cholesterol [Mass/Vol] 133 mg/dL <200 [facility] Comment on above: <200 mg/dL Desirable 200-240 mg/dL Borderline >240 mg/dL High Risk Eosinophils/100 WBC (Bld) 1.4 % 0-5 [facility] Glucose [Mass/Vol] 116 mg/dL 74-106 [facility] Comment on above: Fasting Glucose resu lt from 100 to 125 mg/dL suggests IMPAIRED HOMEOSTASIS per A.D.A. criteria. Hemoglobin (Bld) [Mass/Vol] 13.4 g/dL 13.0-16.5 [facility] Monocytes/100 WBC (Bld) 7.9 % 0-10 [facility] Neutrophils (Bld) [#/Vol] 3.9 10*3/uL 2.0-7.7 [facility] Neutrophils/100 WBC (Bld) 52.2 % 47-70 [facility] Potassium [Moles/Vol] 4.1 mmol/L 3.5-5.1 [facility] Protein [Mass/Vol] 6.9 g/dL 6.4-8.2 [facility] Sodium [Moles/Vol] 137 mmol/L 136-145 [facility] Triglyceride [Mass/Vol] 82 mg/dL <199 [facility] Comment on above: The drugs N-Acetylcy steine and Metamizole may falsely depress this assay.Serum Triglycerides Reference Interval Normal <150 mg/dL Borderline high 150 - 199 mg/dL High 200 - 499 mg/dL Very High > or = 500 mg/dL WBC (Bld) [#/Vol] 7.4 10*3/uL 4.4-11.0 [facility] Determination of erythrocyte mean corpuscular volume (MCV)Ordered By: Delma Bland on 03-16-2023 MCV (RBC) [Entitic vol] 100.5 fL 80-94 [facility] Erythrocyte distribution wid th ratioOrdered By: Delma Bland on 03-16-2023 Erythrocyte distribution width (RBC) [Ratio] 11.9 % 11.6-14.6 [facility] Erythrocyte distribution wid th standard deviationOrdered By: Delma Bland on 03-16-2023 Erythrocyte distribution width (RBC) [Entitic vol] 44.2 fL 35.1-43.9 [facility] Hematocrit Auto (Bld) [Volum e fraction]Ordered By: Delma Bland on 03-16-2023 Hematocrit (Bld) [Volume fraction] 42.2 % 40-54 [facility] High density lipoprotein (HD L) measurementOrdered By: Delma Bland on 03-16-2023 Cholesterol in HDL (Body fld) [Mass/Vol] 47 mg/dL >40 [facility] Comment on above: The drugs N-Acetylcy steine and Metamizole may falsely depress this assay. Reference Range HDL <40 mg/dL Low HDL Cholesterol HDL >or= 60 mg/dL High HDL Cholesterol Immature granulocytes/100 WB C Auto (Bld)Ordered By: Delma Bland on 03-16-2023 Immature granulocytes/100 WBC (Bld) 0.100 % 0.0-0.9 [facility] Comment on above: IG% - Immature Granu locytes (promyelocytes, myelocytes and metamyelocytes) > 1% indicates that a LEFT SHIFT is Present. Laboratory - Chemistry and C hemistry - challengeOrdered By: Delma Bland on 03-16-2023 Albumin/Globulin [Mass ratio] 1.1 {ratio} 0.9-2.4 [facility] ALP [Catalytic activity/Vol] 73 U/L 45-117 [facility] ALT [Catalytic activity/Vol] 19 U/L 16-61 [facility] CO2 [Moles/Vol] 23.0 mmol/L 21.0-32.0 [facility] Globulin (S) [Mass/Vol] 3.3 g/dL 2.2-4.2 [facility] Urea nitrogen/Creatinine [Mass ratio] 12.9 mg/mg 10-20 [facility] Laboratory - Hematology and Cell countsOrdered By: Delma Bland on 03-16-2023 MCH (RBC) [Entitic mass] 31.9 pg 27.0-32.0 [facility] MCHC (RBC) [Mass/Vol] 31.8 g/dL 32-36 [facility] Nucleated RBC/100 WBC (Bld) [Ratio] 0 % 0-5 [facility] Platelets (Bld) [#/Vol] 155 10*3/uL 150-450 [facility] Low density lipoprotein (LDL ) cholesterol measurementOrdered By: Delma Bland on 03-16-2023 Cholesterol in LDL (Body fld) [Moles/Vol] 70 mg/dL 0-130 [facility] No Panel InformationOrdered By: Delma Bland on 03-16-2023 Estimated GFR (MDRD) Amer 73 mL/min >60 [facility] Comment on above: GFR Calc Estimated GFR (MDRD) Non-Af Amer 60 mL/min >60 [facility] Comment on above: Non- GFR Calc Platelet mean volume Sushant-Ec ker (Bld) [Entitic vol]Ordered By: Delma Bland on 03-16-2023 Platelet mean volume (Bld) [Entitic vol] 11.8 fL 6.2-12.0 [facility] RBC Auto (Bld) [#/Vol]Ordere d By: Delma Bland on 03-16-2023 RBC (Bld) [#/Vol] 4.20 10*6/uL 4.6-6.2 [facility] Serum or plasma calcium linda urement (mass/volume)Ordered By: Delma Bland on 03-16-2023 Calcium [Mass/Vol] 8.8 mg/dL 8.5-10.1 [facility] Serum or plasma creatinine m easurement (mass/volume)Ordered By: Delma Bland on 03-16-2023 Creatinine [Mass/Vol] 1.24 mg/dL 0.70-1.30 [facility] Comment on above: The validity of the calculated GFR & GFRAA in patients over 70 years has not been determined. Clinical correlation is essential. Serum or plasma thyroid stim ulating hormone (TSH) measurement (units/volume)Ordered By: Delma Bland on 03-16-2023 TSH Qn 0.44 uIU/mL 0.358-3.74 [facility] Serum or plasma urea nitroge n measurement (mass/volume)Ordered By: Delma Bland on 03-16-2023 Urea nitrogen [Mass/Vol] 16 mg/dL 7-18 [facility] Thin prep Papanicolaou smear with manual screeningOrdered By: Delma Bland on 03-16-2023 Thin prep Papanicolaou smear with manual screening 3.6 g/dL 3.2-5.0 [facility] Thin prep Papanicolaou smear with manual screening 24 U/L 15-37 [facility] Thin prep Papanicolaou smear with manual screening 4 5-15 [facility] Thin prep Papanicolaou smear with manual screening 1.23 ng/dL 0.76-1.46 [facility] Very low density lipoprotein (VLDL) cholesterol measurementOrdered By: Delma Bland on 03-16-2023 Cholesterol in VLDL Calc [Moles/Vol] 16 mg/dL 5-40 [facility] Whole blood hemoglobin A1c/t otal hemoglobin ratio (mass fraction)Ordered By: Delma Bland on 03-16-2023 HbA1c (Bld) [Mass fraction] 5.6 % 3.8-5.6 [facility] Comment on above: Normal < 5.7 % Predi abetic 5.7 - 6.4 % Diabetic >or= 6.5 % Please note range changes. Screening prostate specific antigen (PSA) measurementOrdered By: Delma Bland on 03-09-2023 Prostate specific Ag IA [Mass/Vol] 1.36 ng/mL 0.00-4.00 [facility] Comment on above: This test was perfor med using the TPSA assay method for the[employer] chemistry system. Values obtained with differentassay methods cannot be used interchangably.When changing PSA assays in the course of monitoring apatient, additional sequential testing should be carriedout to confirm baseline values. Absolute lymphocyte countOrd ered By: Delma Bland on 09-17-2022 Lymphocytes Auto (Unsp spec) [#/Vol] 3.33 10*3/uL 0.83-4.51 [facility] Basophil percentageOrdered B y: Delma Bland on 09-17-2022 Basophils/100 WBC (Bld) 0.4 % 0-1 [facility] Bilirubin [Mass/Vol] 0.70 mg/dL 0.20-1.00 [facility] Comment on above: For patients on eltr ombopag therapy, use of Dimension [place] TBIL is not recommended. Chloride [Moles/Vol] 106 mmol/L 98-107 [facility] Cholesterol [Mass/Vol] 142 mg/dL <200 [facility] Comment on above: <200 mg/dL Desirable 200-240 mg/dL Borderline >240 mg/dL High Risk Eosinophils/100 WBC (Bld) 0.8 % 0-5 [facility] Glucose [Mass/Vol] 101 mg/dL 74-106 [facility] Comment on above: Fasting Glucose resu lt from 100 to 125 mg/dL suggests IMPAIRED HOMEOSTASIS per A.D.A. criteria. Neutrophils (Bld) [#/Vol] 4.3 10*3/uL 2.0-7.7 [facility] Neutrophils/100 WBC (Bld) 51.8 % 47-70 [facility] Potassium [Moles/Vol] 4.1 mmol/L 3.5-5.1 [facility] Protein [Mass/Vol] 7.4 g/dL 6.4-8.2 [facility] Sodium [Moles/Vol] 139 mmol/L 136-145 [facility] Triglyceride [Mass/Vol] 70 mg/dL <199 [facility] Comment on above: The drugs N-Acetylcy steine and Metamizole may falsely depress this assay.Serum Triglycerides Reference Interval Normal <150 mg/dL Borderline high 150 - 199 mg/dL High 200 - 499 mg/dL Very High > or = 500 mg/dL WBC (Bld) [#/Vol] 8.3 10*3/uL 4.4-11.0 [facility] Blood erythrocytes count (nu mber/volume)Ordered By: Delma Bland on 09-17-2022 RBC (Bld) [#/Vol] 4.17 10*6/uL 4.6-6.2 [facility] Blood hemoglobin measurement (mass/volume)Ordered By: Delma Bland on 09-17-2022 Hemoglobin (Bld) [Mass/Vol] 13.7 g/dL 13.0-16.5 [facility] Blood lymphocytes/100 leukoc ytesOrdered By: Delma Bland on 09-17-2022 Lymphocytes/100 WBC (Bld) 40.4 % 19-41 [facility] Blood monocytes/100 leukocyt esOrdered By: Delma Bland on 09-17-2022 Monocytes/100 WBC (Bld) 6.5 % 0-10 [facility] Blood platelet mean volumeOr dered By: Delma Bland on 09-17-2022 Platelet mean volume (Bld) [Entitic vol] 10.5 fL 6.2-12.0 [facility] Determination of erythrocyte mean corpuscular volume (MCV)Ordered By: Delma Bland on 09-17-2022 MCV (RBC) [Entitic vol] 101.9 fL 80-94 [facility] Hematocrit Auto (Bld) [Volum e fraction]Ordered By: Delma Bland on 09-17-2022 Hematocrit (Bld) [Volume fraction] 42.5 % 40-54 [facility] Laboratory - Chemistry and C hemistry - challengeOrdered By: Delma Bland on 09-17-2022 ALP [Catalytic activity/Vol] 68 U/L 45-117 [facility] ALT [Catalytic activity/Vol] 27 U/L 16-61 [facility] CO2 [Moles/Vol] 27.0 mmol/L 21.0-32.0 [facility] Free T4 [Mass/Vol] 1.33 ng/dL 0.76-1.46 [facility] Globulin (S) [Mass/Vol] 3.7 g/dL 2.2-4.2 [facility] Urea nitrogen/Creatinine [Mass ratio] 13.2 mg/mg 10-20 [facility] Laboratory - Hematology and Cell countsOrdered By: Delma Bland on 09-17-2022 Erythrocyte distribution width (RBC) [Entitic vol] 46.5 fL 35.1-43.9 [facility] Erythrocyte distribution width (RBC) [Ratio] 12.4 % 11.6-14.6 [facility] Immature granulocytes/100 WBC (Bld) 0.100 % 0.0-0.9 [facility] Comment on above: IG% - Immature Granu locytes (promyelocytes, myelocytes and metamyelocytes) > 1% indicates that a LEFT SHIFT is Present. MCH (RBC) [Entitic mass] 32.9 pg 27.0-32.0 [facility] Nucleated RBC/100 WBC (Bld) [Ratio] 0 % 0-5 [facility] MCHC Auto (RBC) [Mass/Vol]Or dered By: Delma Bland on 09-17-2022 MCHC (RBC) [Mass/Vol] 32.2 g/dL 32-36 [facility] No Panel InformationOrdered By: Delma Bland on 09-17-2022 Estimated GFR (MDRD) Amer 75 mL/min >60 [facility] Comment on above: GFR Calc Estimated GFR (MDRD) Non-Af Amer 62 mL/min >60 [facility] Comment on above: Non- GFR Calc Thyroid Stimulating Hormone (TSH) 1.99 uIU/mL 0.358-3.74 [facility] Platelets bldOrdered By: Vj Bland on 09-17-2022 Platelets (Bld) [#/Vol] 181 10*3/uL 150-450 [facility] Serum or plasma albumin linda urement (mass/volume)Ordered By: Delma Bland on 09-17-2022 Albumin [Mass/Vol] 3.7 g/dL 3.2-5.0 [facility] Serum or plasma albumin/glob ulin mass ratioOrdered By: Delma Bland on 09-17-2022 Albumin/Globulin [Mass ratio] 1.0 {ratio} 0.9-2.4 [facility] Serum or plasma calcium linda urement (mass/volume)Ordered By: Delma Bland on 09-17-2022 Calcium [Mass/Vol] 8.9 mg/dL 8.5-10.1 [facility] Serum or plasma cholesterol in HDL measurement (mass/volume)Ordered By: Delma Bland on 09-17-2022 Cholesterol in HDL [Mass/Vol] 59 mg/dL >40 [facility] Comment on above: The drugs N-Acetylcy steine and Metamizole may falsely depress this assay. Reference Range HDL <40 mg/dL Low HDL Cholesterol HDL >or= 60 mg/dL High HDL Cholesterol Serum or plasma cholesterol in VLDL measurement (mass/volume)Ordered By: Delma Bland on 09-17-2022 Cholesterol in VLDL [Mass/Vol] 14 mg/dL 5-40 [facility] Serum or plasma creatinine m easurement (mass/volume)Ordered By: Delma Bland on 09-17-2022 Creatinine [Mass/Vol] 1.21 mg/dL 0.70-1.30 [facility] Comment on above: The validity of the calculated GFR & GFRAA in patients over 70 years has not been determined. Clinical correlation is essential. Serum or plasma low density lipoprotein (LDL) cholesterol measurement (mass/volume)Ordered By: Delma Bland on 09-17-2022 Cholesterol in LDL [Mass/Vol] 69 mg/dL 0-130 [facility] Serum or plasma urea nitroge n measurement (mass/volume)Ordered By: Delma Bland on 09-17-2022 Urea nitrogen [Mass/Vol] 16 mg/dL 7-18 [facility] Thin prep Papanicolaou smear with manual screeningOrdered By: Delma Bland on 09-17-2022 Thin prep Papanicolaou smear with manual screening 28 U/L 15-37 [facility] Thin prep Papanicolaou smear with manual screening 6 5-15 [facility] Whole blood hemoglobin A1c/t otal hemoglobin ratio (mass fraction)Ordered By: Delma Bland on 09-17-2022 HbA1c (Bld) [Mass fraction] 5.9 % 3.8-5.6 [facility] Comment on above: Normal < 5.7 % Predi abetic 5.7 - 6.4 % Diabetic >or= 6.5 % Please note range changes. Absolute lymphocyte countOrd ered By: Dr. Bland on 05-14-2022 Lymphocytes Auto (Unsp spec) [#/Vol] 4.01 10*3/uL 0.83-4.51 [facility] Basophil percentageOrdered B y: Dr. Bland on 05-14-2022 Basophils/100 WBC (Bld) 0.6 % 0-1 [facility] Bilirubin [Mass/Vol] 0.50 mg/dL 0.20-1.00 [facility] Comment on above: For patients on eltr ombopag therapy, use of Dimension [place] TBIL is not recommended. Chloride [Moles/Vol] 106 mmol/L 98-107 [facility] Cholesterol [Mass/Vol] 128 mg/dL <200 [facility] Comment on above: <200 mg/dL Desirable 200-240 mg/dL Borderline >240 mg/dL High Risk Eosinophils/100 WBC (Bld) 1.1 % 0-5 [facility] Glucose [Mass/Vol] 99 mg/dL 74-106 [facility] Neutrophils (Bld) [#/Vol] 3.5 10*3/uL 2.0-7.7 [facility] Neutrophils/100 WBC (Bld) 41.8 % 47-70 [facility] Potassium [Moles/Vol] 4.0 mmol/L 3.5-5.1 [facility] Protein [Mass/Vol] 7.3 g/dL 6.4-8.2 [facility] Sodium [Moles/Vol] 137 mmol/L 136-145 [facility] Triglyceride [Mass/Vol] 128 mg/dL <199 [facility] Comment on above: The drugs N-Acetylcy steine and Metamizole may falsely depress this assay.Serum Triglycerides Reference Interval Normal <150 mg/dL Borderline high 150 - 199 mg/dL High 200 - 499 mg/dL Very High > or = 500 mg/dL WBC (Bld) [#/Vol] 8.4 10*3/uL 4.4-11.0 [facility] Blood erythrocytes count (nu mber/volume)Ordered By: Dr. Bland on 05-14-2022 RBC (Bld) [#/Vol] 4.25 10*6/uL 4.6-6.2 [facility] Blood hemoglobin measurement (mass/volume)Ordered By: Dr. Bland on 05-14-2022 Hemoglobin (Bld) [Mass/Vol] 13.6 g/dL 13.0-16.5 [facility] Blood lymphocytes/100 leukoc ytesOrdered By: Dr. Bland on 05-14-2022 Lymphocytes/100 WBC (Bld) 48.0 % 19-41 [facility] Blood monocytes/100 leukocyt esOrdered By: Dr. Bland on 05-14-2022 Monocytes/100 WBC (Bld) 8.3 % 0-10 [facility] Blood platelet mean volumeOr dered By: Dr. Bland on 05-14-2022 Platelet mean volume (Bld) [Entitic vol] 11.2 fL 6.2-12.0 [facility] Determination of erythrocyte mean corpuscular volume (MCV)Ordered By: Dr. Bland on 05-14-2022 MCV (RBC) [Entitic vol] 97.6 fL 80-94 [facility] Hematocrit Auto (Bld) [Volum e fraction]Ordered By: Dr. Bland on 05-14-2022 Hematocrit (Bld) [Volume fraction] 41.5 % 40-54 [facility] Laboratory - Chemistry and C hemistry - challengeOrdered By: Dr. Bland on 05-14-2022 ALP [Catalytic activity/Vol] 66 U/L 45-117 [facility] ALT [Catalytic activity/Vol] 23 U/L 16-61 [facility] CO2 [Moles/Vol] 24.0 mmol/L 21.0-32.0 [facility] Free T4 [Mass/Vol] 1.25 ng/dL 0.76-1.46 [facility] Globulin (S) [Mass/Vol] 3.5 g/dL 2.2-4.2 [facility] Urea nitrogen/Creatinine [Mass ratio] 15.4 mg/mg 10-20 [facility] Laboratory - Hematology and Cell countsOrdered By: Dr. Bland on 05-14-2022 Erythrocyte distribution width (RBC) [Entitic vol] 43.9 fL 35.1-43.9 [facility] Erythrocyte distribution width (RBC) [Ratio] 12.1 % 11.6-14.6 [facility] Immature granulocytes/100 WBC (Bld) 0.200 % 0.0-0.9 [facility] Comment on above: IG% - Immature Granu locytes (promyelocytes, myelocytes and metamyelocytes) > 1% indicates that a LEFT SHIFT is Present. MCH (RBC) [Entitic mass] 32.0 pg 27.0-32.0 [facility] Nucleated RBC/100 WBC (Bld) [Ratio] 0 % 0-5 [facility] MCHC Auto (RBC) [Mass/Vol]Or dered By: Dr. Bland on 05-14-2022 MCHC (RBC) [Mass/Vol] 32.8 g/dL 32-36 [facility] No Panel InformationOrdered By: Dr. Bland on 05-14-2022 Estimated GFR (MDRD) Amer 90 mL/min >60 [facility] Comment on above: GFR Calc Estimated GFR (MDRD) Non-Af Amer 74 mL/min >60 [facility] Comment on above: Non- GFR Calc Thyroid Stimulating Hormone (TSH) 1.74 uIU/mL 0.358-3.74 [facility] Platelets bldOrdered By: Dr. Bland on 05-14-2022 Platelets (Bld) [#/Vol] 219 10*3/uL 150-450 [facility] Serum or plasma albumin linda urement (mass/volume)Ordered By: Dr. Bland on 05-14-2022 Albumin [Mass/Vol] 3.8 g/dL 3.2-5.0 [facility] Serum or plasma albumin/glob ulin mass ratioOrdered By: Dr. Bland on 05-14-2022 Albumin/Globulin [Mass ratio] 1.1 {ratio} 0.9-2.4 [facility] Serum or plasma calcium linda urement (mass/volume)Ordered By: Dr. Bland on 05-14-2022 Calcium [Mass/Vol] 8.9 mg/dL 8.5-10.1 [facility] Serum or plasma cholesterol in HDL measurement (mass/volume)Ordered By: Dr. Bland on 05-14-2022 Cholesterol in HDL [Mass/Vol] 43 mg/dL >40 [facility] Comment on above: The drugs N-Acetylcy steine and Metamizole may falsely depress this assay. Reference Range HDL <40 mg/dL Low HDL Cholesterol HDL >or= 60 mg/dL High HDL Cholesterol Serum or plasma cholesterol in VLDL measurement (mass/volume)Ordered By: Dr. Bland on 05-14-2022 Cholesterol in VLDL [Mass/Vol] 26 mg/dL 5-40 [facility] Serum or plasma creatinine m easurement (mass/volume)Ordered By: Dr. Bland on 05-14-2022 Creatinine [Mass/Vol] 1.04 mg/dL 0.70-1.30 [facility] Comment on above: The validity of the calculated GFR & GFRAA in patients over 70 years has not been determined. Clinical correlation is essential. Serum or plasma low density lipoprotein (LDL) cholesterol measurement (mass/volume)Ordered By: Dr. Bland on 05-14-2022 Cholesterol in LDL [Mass/Vol] 59 mg/dL 0-130 [facility] Serum or plasma urea nitroge n measurement (mass/volume)Ordered By: Dr. Bland on 05-14-2022 Urea nitrogen [Mass/Vol] 16 mg/dL 7-18 [facility] Thin prep Papanicolaou smear with manual screeningOrdered By: Dr. Bland on 05-14-2022 Thin prep Papanicolaou smear with manual screening 21 U/L 15-37 [facility] Thin prep Papanicolaou smear with manual screening 7 5-15 [facility] Absolute lymphocyte countOrd ered By: Dr. Bland on 02-12-2022 Lymphocytes Auto (Unsp spec) [#/Vol] 3.33 10*3/uL 0.83-4.51 [facility] Basophil percentageOrdered B y: Dr. Bland on 02-12-2022 Basophils/100 WBC (Bld) 0.7 % 0-1 [facility] Bilirubin [Mass/Vol] 0.60 mg/dL 0.20-1.00 [facility] Comment on above: For patients on eltr ombopag therapy, use of Dimension [place] TBIL is not recommended. Chloride [Moles/Vol] 108 mmol/L 98-107 [facility] Cholesterol [Mass/Vol] 142 mg/dL <200 [facility] Comment on above: <200 mg/dL Desirable 200-240 mg/dL Borderline >240 mg/dL High Risk Eosinophils/100 WBC (Bld) 1.4 % 0-5 [facility] Glucose [Mass/Vol] 83 mg/dL 74-106 [facility] Neutrophils (Bld) [#/Vol] 2.9 10*3/uL 2.0-7.7 [facility] Neutrophils/100 WBC (Bld) 41.8 % 47-70 [facility] Potassium [Moles/Vol] 4.3 mmol/L 3.5-5.1 [facility] Protein [Mass/Vol] 7.3 g/dL 6.4-8.2 [facility] Sodium [Moles/Vol] 138 mmol/L 136-145 [facility] Triglyceride [Mass/Vol] 111 mg/dL <199 [facility] Comment on above: The drugs N-Acetylcy steine and Metamizole may falsely depress this assay.Serum Triglycerides Reference Interval Normal <150 mg/dL Borderline high 150 - 199 mg/dL High 200 - 499 mg/dL Very High > or = 500 mg/dL WBC (Bld) [#/Vol] 7.0 10*3/uL 4.4-11.0 [facility] Blood erythrocytes count (nu mber/volume)Ordered By: Dr. Bland on 02-12-2022 RBC (Bld) [#/Vol] 4.29 10*6/uL 4.6-6.2 [facility] Blood hemoglobin measurement (mass/volume)Ordered By: Dr. Bland on 02-12-2022 Hemoglobin (Bld) [Mass/Vol] 14.2 g/dL 13.0-16.5 [facility] Blood lymphocytes/100 leukoc ytesOrdered By: Dr. Bland on 02-12-2022 Lymphocytes/100 WBC (Bld) 47.3 % 19-41 [facility] Blood monocytes/100 leukocyt esOrdered By: Dr. Bland on 02-12-2022 Monocytes/100 WBC (Bld) 8.5 % 0-10 [facility] Blood platelet mean volumeOr dered By: Dr. Bland on 02-12-2022 Platelet mean volume (Bld) [Entitic vol] 11.3 fL 6.2-12.0 [facility] Determination of erythrocyte mean corpuscular volume (MCV)Ordered By: Dr. Bland on 02-12-2022 MCV (RBC) [Entitic vol] 98.8 fL 80-94 [facility] Hematocrit Auto (Bld) [Volum e fraction]Ordered By: Dr. Bland on 02-12-2022 Hematocrit (Bld) [Volume fraction] 42.4 % 40-54 [facility] Laboratory - Chemistry and C hemistry - challengeOrdered By: Dr. Bland on 02-12-2022 ALP [Catalytic activity/Vol] 70 U/L 45-117 [facility] ALT [Catalytic activity/Vol] 24 U/L 16-61 [facility] CO2 [Moles/Vol] 25.0 mmol/L 21.0-32.0 [facility] Free T4 [Mass/Vol] 1.23 ng/dL 0.76-1.46 [facility] Globulin (S) [Mass/Vol] 3.2 g/dL 2.2-4.2 [facility] Urea nitrogen/Creatinine [Mass ratio] 15.5 mg/mg 10-20 [facility] Laboratory - Hematology and Cell countsOrdered By: Dr. Bland on 02-12-2022 Erythrocyte distribution width (RBC) [Entitic vol] 43.4 fL 35.1-43.9 [facility] Erythrocyte distribution width (RBC) [Ratio] 11.9 % 11.6-14.6 [facility] Immature granulocytes/100 WBC (Bld) 0.300 % 0.0-0.9 [facility] Comment on above: IG% - Immature Granu locytes (promyelocytes, myelocytes and metamyelocytes) > 1% indicates that a LEFT SHIFT is Present. MCH (RBC) [Entitic mass] 33.1 pg 27.0-32.0 [facility] Nucleated RBC/100 WBC (Bld) [Ratio] 0 % 0-5 [facility] MCHC Auto (RBC) [Mass/Vol]Or dered By: Dr. Bland on 02-12-2022 MCHC (RBC) [Mass/Vol] 33.5 g/dL 32-36 [facility] No Panel InformationOrdered By: Dr. Bland on 02-12-2022 Estimated GFR (MDRD) Amer 84 mL/min >60 [facility] Comment on above: GFR Calc Estimated GFR (MDRD) Non-Af Amer 70 mL/min >60 [facility] Comment on above: Non- GFR Calc Prostate Specific Antigen Screen 1.07 ng/mL 0.00-4.00 [facility] Comment on above: This test was perfor med using the TPSA assay method [facility] Values obtained with differentassay methods cannot be used interchangably.When changing PSA assays in the course of monitoring apatient, additional sequential testing should be carriedout to confirm baseline values. Thyroid Stimulating Hormone (TSH) 1.58 uIU/mL 0.358-3.74 [facility] Platelets bldOrdered By: Dr. Bland on 02-12-2022 Platelets (Bld) [#/Vol] 184 10*3/uL 150-450 [facility] Serum or plasma albumin linda urement (mass/volume)Ordered By: Dr. Bland on 02-12-2022 Albumin [Mass/Vol] 4.1 g/dL 3.2-5.0 [facility] Serum or plasma albumin/glob ulin mass ratioOrdered By: Dr. Bland on 02-12-2022 Albumin/Globulin [Mass ratio] 1.3 {ratio} 0.9-2.4 [facility] Serum or plasma calcium linda urement (mass/volume)Ordered By: Dr. Bland on 02-12-2022 Calcium [Mass/Vol] 8.9 mg/dL 8.5-10.1 [facility] Serum or plasma cholesterol in HDL measurement (mass/volume)Ordered By: Dr. Bland on 02-12-2022 Cholesterol in HDL [Mass/Vol] 50 mg/dL >40 [facility] Comment on above: The drugs N-Acetylcy steine and Metamizole may falsely depress this assay. Reference Range HDL <40 mg/dL Low HDL Cholesterol HDL >or= 60 mg/dL High HDL Cholesterol Serum or plasma cholesterol in VLDL measurement (mass/volume)Ordered By: Dr. Bland on 02-12-2022 Cholesterol in VLDL [Mass/Vol] 22 mg/dL 5-40 [facility] Serum or plasma creatinine m easurement (mass/volume)Ordered By: Dr. Bland on 02-12-2022 Creatinine [Mass/Vol] 1.10 mg/dL 0.70-1.30 [facility] Comment on above: The validity of the calculated GFR & GFRAA in patients over 70 years has not been determined. Clinical correlation is essential. Serum or plasma low density lipoprotein (LDL) cholesterol measurement (mass/volume)Ordered By: Dr. Bland on 02-12-2022 Cholesterol in LDL [Mass/Vol] 70 mg/dL 0-130 [facility] Serum or plasma urea nitroge n measurement (mass/volume)Ordered By: Dr. Bland on 02-12-2022 Urea nitrogen [Mass/Vol] 17 mg/dL 7-18 [facility] Thin prep Papanicolaou smear with manual screeningOrdered By: Dr. Bland on 02-12-2022 Thin prep Papanicolaou smear with manual screening 22 U/L 15-37 [facility] Thin prep Papanicolaou smear with manual screening 5 5-15 [facility] Absolute lymphocyte counton 08-29-2021 Lymphocytes Auto (Unsp spec) [#/Vol] 3.35 10*3/uL 0.83-4.51 [facility] Work Phone: Basophil percentageon 08-29- 2021 Basophils/100 WBC (Bld) 0.8 % 0-1 [facility] Work Phone: Bilirubin [Mass/Vol] 0.40 mg/dL 0.20-1.00 [facility] Work Phone: Comment on above: For patients on eltr ombopag therapy, use of Dimension [place] TBIL is not recommended. Chloride [Moles/Vol] 106 mmol/L 98-107 [facility] Work Phone: Cholesterol [Mass/Vol] 155 mg/dL <200 [facility] Work Phone: Comment on above: <200 mg/dL Desirable 200-240 mg/dL Borderline >240 mg/dL High Risk Eosinophils/100 WBC (Bld) 2.4 % 0-5 [facility] Work Phone: Glucose [Mass/Vol] 96 mg/dL 74-106 [facility] Work Phone: Neutrophils (Bld) [#/Vol] 3.7 10*3/uL 2.0-7.7 [facility] Work Phone: Neutrophils/100 WBC (Bld) 46.4 % 47-70 [facility] Work Phone: Potassium [Moles/Vol] 4.0 mmol/L 3.5-5.1 [facility] Work Phone: Protein [Mass/Vol] 7.2 g/dL 6.4-8.2 [facility] Work Phone: Sodium [Moles/Vol] 137 mmol/L 136-145 [facility] Work Phone: Triglyceride [Mass/Vol] 160 mg/dL <199 [facility] Work Phone: Comment on above: The drugs N-Acetylcy steine and Metamizole may falsely depress this assay.Serum Triglycerides Reference Interval Normal <150 mg/dL Borderline high 150 - 199 mg/dL High 200 - 499 mg/dL Very High > or = 500 mg/dL WBC (Bld) [#/Vol] 8.0 10*3/uL 4.4-11.0 [facility] Work Phone: Blood erythrocytes count (nu mber/volume)on 08-29-2021 RBC (Bld) [#/Vol] 4.31 10*6/uL 4.6-6.2 [facility] Work Phone: Blood hemoglobin measurement (mass/volume)on 08-29-2021 Hemoglobin (Bld) [Mass/Vol] 13.9 g/dL 13.0-16.5 [facility] Work Phone: [phone] Blood lymphocytes/100 leukoc yteson 08-29-2021 Lymphocytes/100 WBC (Bld) 42.1 % 19-41 [facility] Work Phone: [phone] Blood monocytes/100 leukocyt eson 08-29-2021 Monocytes/100 WBC (Bld) 7.9 % 0-10 [facility] Work Phone: Blood platelet mean volumeon 08-29-2021 Platelet mean volume (Bld) [Entitic vol] 11.2 fL 6.2-12.0 [facility] Work Phone: [phone] Determination of erythrocyte mean corpuscular volume (MCV)on 08-29-2021 MCV (RBC) [Entitic vol] 99.8 fL 80-94 [facility] Work Phone: [phone] Hematocrit Auto (Bld) [Volum e fraction]on 08-29-2021 Hematocrit (Bld) [Volume fraction] 43.0 % 40-54 [facility] Work Phone: [phone] Laboratory - Chemistry and C hemistry - challengeon 08-29-2021 ALP [Catalytic activity/Vol] 68 U/L 45-117 [facility] Work Phone: ALT [Catalytic activity/Vol] 23 U/L 16-61 [facility] Work Phone: [phone] CO2 [Moles/Vol] 24.0 mmol/L 21.0-32.0 [facility] Work Phone: [phone] Free T4 [Mass/Vol] 1.09 ng/dL 0.76-1.46 [facility] Work Phone: [phone] Globulin (S) [Mass/Vol] 3.5 g/dL 2.2-4.2 [facility] Work Phone: [phone] Urea nitrogen/Creatinine [Mass ratio] 16.2 mg/mg 10-20 [facility] Work Phone: [phone] Laboratory - Hematology and Cell countson 08-29-2021 Erythrocyte distribution width (RBC) [Entitic vol] 44.7 fL 35.1-43.9 [facility] Work Phone: [phone] Erythrocyte distribution width (RBC) [Ratio] 12.2 % 11.6-14.6 [facility] Work Phone: [phone] Immature granulocytes/100 WBC (Bld) 0.400 % 0.0-0.9 [facility] Work Phone: [phone] Comment on above: IG% - Immature Granu locytes (promyelocytes, myelocytes and metamyelocytes) > 1% indicates that a LEFT SHIFT is Present. MCH (RBC) [Entitic mass] 32.3 pg 27.0-32.0 [facility] Work Phone: [phone] Nucleated RBC/100 WBC (Bld) [Ratio] 0 % 0-5 [facility] Work Phone: [phone] MCHC Auto (RBC) [Mass/Vol]on 08-29-2021 MCHC (RBC) [Mass/Vol] 32.3 g/dL 32-36 [facility] Work Phone: [phone] Panel Informationon 08-29 Estimated GFR (MDRD) Amer 83 mL/min >60 [facility] Work Phone: [phone] Comment on above: GFR Calc Estimated GFR (MDRD) Non-Af Amer 69 mL/min >60 [facility] Work Phone: [phone] Comment on above: Non- GFR Calc Thyroid Stimulating Hormone (TSH) 1.59 uIU/mL 0.358-3.74 [facility] Work Phone: Platelets bldon 08-29-2021 Platelets (Bld) [#/Vol] 204 10*3/uL 150-450 [facility] Work Phone: Serum or plasma albumin linda urement (mass/volume)on 08-29-2021 Albumin [Mass/Vol] 3.7 g/dL 3.2-5.0 [facility] Work Phone: Serum or plasma albumin/glob ulin mass ratioon 08-29-2021 Albumin/Globulin [Mass ratio] 1.1 {ratio} 0.9-2.4 [facility] Work Phone: Serum or plasma calcium linda urement (mass/volume)on 08-29-2021 Calcium [Mass/Vol] 8.8 mg/dL 8.5-10.1 [facility] Work Phone: Serum or plasma cholesterol in HDL measurement (mass/volume)on 08-29-2021 Cholesterol in HDL [Mass/Vol] 44 mg/dL >40 [facility] Work Phone: Comment on above: The drugs N-Acetylcy steine and Metamizole may falsely depress this assay. Reference Range HDL <40 mg/dL Low HDL Cholesterol HDL >or= 60 mg/dL High HDL Cholesterol Serum or plasma cholesterol in VLDL measurement (mass/volume)on 08-29-2021 Cholesterol in VLDL [Mass/Vol] 32 mg/dL 5-40 [facility] Work Phone: Serum or plasma creatinine m easurement (mass/volume)on 08-29-2021 Creatinine [Mass/Vol] 1.11 mg/dL 0.70-1.30 [facility] Work Phone: Comment on above: The validity of the calculated GFR & GFRAA in patients over 70 years has not been determined. Clinical correlation is essential. Serum or plasma low density lipoprotein (LDL) cholesterol measurement (mass/volume)on 08-29-2021 Cholesterol in LDL [Mass/Vol] 79 mg/dL 0-130 [facility] Work Phone: [phone] Serum or plasma urea nitroge n measurement (mass/volume)on 08-29-2021 Urea nitrogen [Mass/Vol] 18 mg/dL 7-18 [facility] Work Phone: [phone] Thin prep Papanicolaou smear with manual screeningon 08-29-2021 Thin prep Papanicolaou smear with manual screening 23 U/L 15-37 [facility] Work Phone: [phone] Thin prep Papanicolaou smear with manual screening 7 5-15 [facility] Work Phone: [phone] Laboratory - Microbiology an d Antimicrobial susceptibilityon 07-07-2021 SARS-CoV-2 (COVID-19) RNA AMOS+probe Ql (Unsp spec) Not detected [facility] Work Phone: [phone] Panel Informationon 07-07 Influenza Types A,B Rapid (Clinic) Not detected [facility] Work Phone: Laboratory - Chemistry and C hemistry - challengeon 02-25-2021 CK [Catalytic activity/Vol] 166 U/L 39-308 [facility] Work Phone: [phone] Magnesium [Mass/Vol] 2.3 mg/dL 1.6-2.6 [facility] Work Phone: [phone] Panel Informationon 02-25 Prostate Specific Antigen Total 1.14 ng/mL 0.0-4.0 [facility] Work Phone: [phone] Comment on above: This test was perfor med using the TPSA assay method [facility]. Values obtained with differentassay methods cannot be used interchangably.When changing PSA assays in the course of monitoring apatient, additional sequential testing should be carriedout to confirm baseline values. Thyroid Stimulating Hormone (TSH) 1.08 uIU/mL 0.358-3.74 [facility] Work Phone: [phone] Serum or plasma ferritin noel surement (mass/volume)on 02-25-2021 Ferritin [Mass/Vol] 188 ng/mL 26-388 [facility] Work Phone: Office Visit: UC: bronchitis on 12-24-2016 Documentation of current medications (procedure) Done Invalid Interpretation Code [facility] Work Phone: Fall risk assessment No Invalid Interpretation Code [facility] Work Phone: Tobacco smoking status NHIS Never Invalid Interpretation Code [facility] Work Phone: Tobacco use HS Never smoker Invalid Interpretation Code [facility] Work Phone: MRI CERVICAL SPINE W/O CONTR Wanda 09-01-2016 MRI CERVICAL SPINE W/O CONTRAST Performed at [facility] APPROVED BY: Fuentes Castillo MD EXAMINATION: [...] opposite to the side of symptomatology. Normal [facility] MRI THORACIC SPINE W/O CONTR Wanda 09-01-2016 MRI THORACIC SPINE W/O CONTRAST Performed at [facility] APPROVED BY: Fuentes Castillo MD EXAM [...] disc bulging at T8-9 and T6-7. Normal [facility] Vital Signs Date Time Vital Sign Value Performing Clinician Facility 11-17-2023 12:47-0400 Diastolic blood pressure 78 mm[Hg] Rita Chaidez Jr., MD Work Phone: [facility] 11-17-2023 12:47-0400 Heart rate 71 /min Rita Chaidez Jr., MD Work Phone: [facility] 11-17-2023 12:47-0400 SaO2% (BldA) [Mass fraction] 95 % Rita Chaidez Jr., MD Work Phone: [facility] 11-17-2023 12:47-0400 Systolic blood pressure 122 mm[Hg] Rita Chaidez Jr., MD Work Phone: [facility] 09-24-2023 14:16-0400 Diastolic blood pressure 68 mm[Hg] Trice Montes MD Work Phone: [facility] 09-24-2023 14:16-0400 Heart rate 78 /min Trice Montes MD Work Phone: [facility] 09-24-2023 14:16-0400 Respiratory rate 16 /min Trice Montes MD Work Phone: [facility] 09-24-2023 14:160400 SaO2% (BldA) [Mass fraction] 95 % Trice Montes MD Work Phone: [facility] 09-24-2023 14:16-0400 Systolic blood pressure 110 mm[Hg] Trice Montes MD Work Phone: [facility] 09-24-2023 12:25-0400 Body mass index (BMI) [Ratio] 26.89 kg/m2 Trice Montes MD Work Phone: [facility] 09-24-2023 12:25-0400 Body temperature 98.2 [degF] Trice Montes MD Work Phone: [facility] 09-24-2023 12:25-0400 Body weight 82.6 kg Trice Montes MD Work Phone: [facility] 09-21-2023 11:21-0400 Body height 175.3 cm Dalia Ezio PROFESSOR OF BIOSTATISTICS.[employer] Work Phone: [facility] 09-21-2023 11:21-0400 Body mass index (BMI) [Ratio] 26.91 kg/m2 Dalia Ezio PROFESSOR OF BIOSTATISTICS.[employer] Work Phone: [facility] 09-21-2023 11:21-0400 Body temperature 97.81 [degF] Dalia Ezio PROFESSOR OF BIOSTATISTICS.[employer] Work Phone: [facility] 09-21-2023 11:21-0400 Body weight 82.64 kg Dalia Ezio PROFESSOR OF BIOSTATISTICS.[employer] Work Phone: [facility] 09-21-2023 11:21-0400 Diastolic blood pressure 68 mm[Hg] Dalia Ezio PROFESSOR OF BIOSTATISTICS.[employer] Work Phone: [facility] 09-21-2023 11:21-0400 Heart rate 94 /min Dalia Ezio PROFESSOR OF BIOSTATISTICS.[employer] Work Phone: [facility] 09-21-2023 11:21-0400 SaO2% (BldA) [Mass fraction] 97 % Dalia Holguin PROFESSOR OF BIOSTATISTICS.[employer] Work Phone: [facility] 09-21-2023 11:21-0400 Systolic blood pressure 112 mm[Hg] Dalia Holguin PROFESSOR OF BIOSTATISTICS.[employer] Work Phone: [facility] 09-25-2022 13:02-0400 Body height 175.[address] Delma Bland Work Phone: [facility] 09-25-2022 13:02-0400 Body mass index (BMI) [Ratio] 27.6 kg/m2 Dr. Delma Bland Work Phone: [facility] 09-25-2022 13:02-0400 Body weight 84.[address] Delma Bland Work Phone: [facility] 07-07-2021 16:03-0400 Body temperature 98 [degF] Dr. Delma Bland Work Phone: [facility] Work Phone: 07-07-2021 16:03-0400 Diastolic blood pressure 66 mm[Hg] Dr. Delma Bland Work Phone: [facility] Work Phone: 07-07-2021 16:03-0400 Heart rate 100 /min Dr. Delma Bland Work Phone: [facility] Work Phone: 07-07-2021 16:03-0400 Respiratory rate 16 /min Dr. Delma Bland Work Phone: [facility] Work Phone: 07-07-2021 16:03-0400 SaO2% (BldA) [Mass fraction] 97 % Dr. Delma Bland Work Phone: [facility] Work Phone: 07-07-2021 16:03-0400 Systolic blood pressure 138 mm[Hg] Dr. Delma Bland Work Phone: [facility] Work Phone: 05-13-2021 07:55-0400 Body temperature 98.4 [degF] Dr. Delma Bland Work Phone: [facility] Work Phone: 05-13-2021 07:55-0400 Diastolic blood pressure 63 mm[Hg] Dr. Delam Bland Work Phone: [facility] Work Phone: 05-13-2021 07:55-0400 Heart rate 68 /min Dr. Delma Bland Work Phone: [facility] Work Phone: 05-13-2021 07:55-0400 Respiratory rate 18 /min Dr. Delma Bland Work Phone: [facility] Work Phone: 05-13-2021 07:55-0400 SaO2% (BldA) [Mass fraction] 95 % Dr. Delma Bland Work Phone: [facility] Work Phone: 05-13-2021 07:55-0400 Systolic blood pressure 104 mm[Hg] Dr. Delma Bland Work Phone: [facility] Work Phone: 05-13-2021 06:39-0400 Body height 175.[address] Delma Bland Work Phone: [facility] Work Phone: 05-13-2021 06:39-0400 Body mass index (BMI) [Ratio] 27.7 kg/m2 Dr. Delma Bland Work Phone: [facility] Work Phone: 05-13-2021 06:39-0400 Body weight 85.[address] Delma Bland Work Phone: [facility] Work Phone: 12-24-2016 15:28-0400 BMI (Body Mass Index) 27.4 kg/m2 Perez COYLE [facility] Work Phone: 12-24-2016 15:28-0400 Body Temperature 98.8 [degF] Perezchris COYLE [facility] Work Phone: 12-24-2016 15:28-0400 BP Diastolic 72 mm[Hg] Perezchris COYLE [facility] Work Phone: 12-24-2016 15:28-0400 BP Systolic 112 mm[Hg] Perezchris COYLE [facility] Work Phone: 12-24-2016 15:28-0400 Height 177.8 cm Perez Dyana COYLE [facility] Work Phone: 12-24-2016 15:28-0400 Pulse (Heart Rate) 63 /min Perez COYLE [facility] Work Phone: 12-24-2016 15:28-0400 Respiratory Rate 14 /min Perezchris COYLE [facility] Work Phone: 12-24-2016 15:28-0400 Weight 86.64 kg Perez Barreradivya COYLE [facility] Work Phone: Encounters Encounter Date Encounter Type Care Provider Facility Start: 09-25-2024 End: 09-25-[address] Delma Bland MD Work Phone: -Cat Scan [facility] Start: 09-25-2024 End: 09-25-[address] Sebastian Jose MD -Cat Scan [facility] Work Phone: Start: 09-25-2024 End: 09-25-2024 ambulatory Delma Bland Facility:[facility] Start: 07-13-2024 ambulatory Delma Bland Facilit y:[facility] Start: 07-13-[address] Fidencio Longo DO -Occupational Therapy Work Phone: Start: 07-05-2024 ambulatory Amadeo Longo Facili ty:[facility] Start: 07-05-2024 Non-patient / Non-visit Dr. Ana lauren MD -[facility] Start: 07-05-2024 End: 07-05-[address] Amadeo Longo DO -Pulmonary Services/Neurology Work Phone: Start: 07-05-2024 End: 07-05-2024 ambulatory Amadeo Longo Facility:[facility] Start: 06-08-2024 End: 06-08-[address] Delma Bland MD -Laboratory [facility] Start: 06-08-2024 End: 06-08-2024 ambulatory Delma Bland Facility:[facility] Start: 05-15-2024 End: 05-30-2024 Refill Dalia Ezio PROFESSOR OF BIOSTATISTICS.KENO WRITER/RUNNER Work Phone: General Surgery Comment on above: Refill Request Start: 05-11-[address] Fidencio Longo DO -Occupational Therapy Work Phone: Start: 05-04-2024 End: 05-04-[address] Delma Bland MD Work Phone: [facility] Work Phone: Start: 05-04-2024 End: 05-04-[address] [facility] Start: 05-04-2024 End: 05-04-2024 ambulatory Delma Bland Facility:[facility] Start: 01-22-2024 End: 01-25-2024 Refill Dalia Ezio PROFESSOR OF BIOSTATISTICS.KENO WRITER/RUNNER Work Phone: General Surgery Comment on above: Refill Request Start: 01-11-2024 End: 01-11-2024 ambulatory Delma Bland Facility:[facility] Start: 12-25-2023 End: 12-27-2023 Refill Dalia Ezio PROFESSOR OF BIOSTATISTICS.KENO WRITER/RUNNER Work Phone: General Surgery Comment on above: Refill Request Start: 11-17-2023 End: 11-17-2023 Patient encounter procedure Rita Chaidez MD Work Phone: [facility] Comment on above: Renal cyst (Primary Dx) Start: 11-17-2023 End: 11-17-2023 ambulatory RITA CHAIDEZ JR Facility:[facility] Start: 10-06-2023 End: 10-06-2023 ambulatory DELMA Mor ADALBERTO Facility:[facility] Start: 10-06-2023 End: 10-06-2023 Patient encounter procedure Dalia Hloguin PROFESSOR OF BIOSTATISTICS.KENO WRITER/RUNNER Work Phone: General Surgery Comment on above: Gastroesophageal ref lux disease with esophagitis without hemorrhage (Primary Dx); Cyst of right kidney Start: 09-28-2023 End: 09-28-2023 ambulatory DELMA BLAND Facility:[facility] Start: 09-28-2023 End: 09-28-2023 Subsequent hospital visit by physician Michelle [facility] (I-Stat) Work Phone: Cat Scan Comment on above: Pain of upper abdome n [R10.10] Start: 09-24-2023 End: 09-24-2023 ambulatory DALIA HOLGUIN Facility:[facility] Start: 09-24-2023 End: 09-24-2023 Subsequent hospital visit by physician Trice Montes MD Work Phone: Ambulatory Surgery Comment on above: Gastro-esophageal re flux disease without esophagitis [K21.9] Start: 09-21-2023 Telephone encounter Dalia Holguin APRN.KENO WRITER/RUNNER Work Phone: General Surgery Start: 09-21-2023 End: 09-21-2023 ambulatory DALIA HOLGUIN Facility:[facility] Start: 09-21-2023 End: 09-21-2023 Patient encounter procedure Dalia Ezio PROFESSOR OF BIOSTATISTICS.KENO WRITER/RUNNER Work Phone: General Surgery Comment on above: Gastro-esophageal re flux disease without esophagitis (Primary Dx); Pain of upper abdomen; Throat clearing Start: 03-16-2023 End: 03-16-2023 ambulatory [facility] Work Phone: Start: 03-16-2023 End: 03-16-2023 Patient encounter procedure [facility] Work Phone: Start: 03-09-2023 End: 03-09-2023 ambulatory [facility] Work Phone: Start: 03-09-2023 End: 03-09-2023 Patient encounter procedure [facility] Start: 01-21-2023 End: 01-21-[address] Delma Bland Work Phone: [facility] Work Phone: Start: 01-21-2023 End: 01-21-[address] Delma Bland Work Phone: [facility] Start: 10-09-2022 End: 10-09-[address] Delma Bland Work Phone: [facility] Work Phone: Start: 10-03-2022 End: 10-03-[address] Delma Bland Work Phone: [facility] Work Phone: Start: 10-03-2022 End: 10-03-[address] Delma Bland Work Phone: [facility] Work Phone: Start: 09-25-2022 End: 09-25-[address] Delma Bland Work Phone: [facility] Start: 09-17-2022 End: 09-17-2022 ambulatory [facility] Work Phone: Start: 09-17-2022 End: 09-17-2022 Patient encounter procedure [facility] Start: 05-27-2022 End: 05-27-2022 ambulatory [facility] Work Phone: Start: 05-27-2022 End: 05-27-2022 Patient encounter procedure [facility] Start: 05-14-2022 End: 05-14-2022 ambulatory [facility] Work Phone: Start: 05-14-2022 End: 05-14-2022 Patient encounter procedure [facility] Start: 02-12-2022 End: 02-12-2022 Patient encounter procedure [facility] Start: 12-17-2021 Telephone encounter Fatou louise MD Work Phone: Neurology Comment on above: Patient Update (MRI results ) Start: 12-10-2021 Telephone encounter Neurology Provid er Neurology Comment on above: Appointment Reschedu led Start: 09-25-2021 End: 09-25-[address] Delma Bland Work Phone: [facility] Start: 08-29-2021 End: 08-29-[address] Delma Bland Work Phone: [facility] Start: 08-13-2021 End: 08-13-[address] Delma Bland Work Phone: [facility] Start: 07-07-2021 End: 07-07-[address] Delma Bland Work Phone: [facility] Start: 05-13-2021 Non-patient / Non-visit Dr. Viviana Bland Work Phone: [facility] Start: 05-13-2021 End: 05-13-2021 Admission to same day surgery center Dr. Delma Bland Work Phone: [facility] Start: 04-28-2021 End: 04-28-[address] Delma Bland Work Phone: [facility] Start: 02-25-2021 End: 02-25-[address] Delma Bland Work Phone: [facility] [place] Start: 09-01-2016 End: 09-02-2016 Ambulatory [facility] Facility:[facility] Procedures Date Procedure Procedure Detail Performing Clinician Start: 09-25-2024 CT of chest without contrast Dr. Delma engle MD Work Phone: Start: 06-08-2024 Prostate specific antigen measurement Dr. Delma Bland MD Work Phone: Comment on above: This test was performed using the [employer] tPSA method. Measured values of a patient sample can vary depending on the testing procedure used. PSA values determined on patient samples by different testing procedures cannot be used interchangeably. If there is a change in PSA assays while monitoring therapy, sequential testing should be performed to confirm baseline values. Start: 11-17-2023 Urnls dip stick/tablet rgnt auto w/o microscopy Rita Chaidez MD Work Phone: Start: 09-24-2023 Esophagogastroduodenoscopy transoral diagnostic Dalia Holguin APRN.CNP Work Phone: Start: 10-03-2022 MRI of lumbar spine Dr. Delma Bland Work Phone: Start: 09-25-2022 X-ray of lumbar spine, two or three views Dr. Delma Bland Work Phone: Start: 05-27-2022 Plain x-ray of pelvis and lower extremity Start: 09-25-2021 MRI of brain with contrast Dr. Delma ayala Work Phone: Start: 08-13-2021 Radiography of nasal sinuses Dr. Delma engle Work Phone: Start: 05-13-[address] Delma Bland Work Phone: Plan of Treatment Date Care Activity Detail Author Start: 08-22-2030 Urine microalbumin profile DTaP,Tdap,Td Vaccine (2 - Td or Tdap) [facility] Start: 11-22-2024 End: 11-22-2024 Patient encounter procedure 11/22/2024 1:00 PM EDT Office Visit [facility] [address] [place] [id number] Rita Chaidez Jr., MD [address] [place] [address] 1 year follow up, renal us prior [facility] Comment on above: 1 year follow up, re nal us prior Start: 11-16-2024 End: 12-16-2024 US Kidney - bilateral and Urinary bladder US KIDNEY/BLADDER Radiology Routine Renal cyst Expected: 11/16/2024, Expires: 12/16/2024 [facility] Work Phone: Comment on above: Expected: 11/16/2024 , Expires: 12/16/2024 Start: 11-16-2024 End: 11-16-2024 Patient encounter procedure 11/16/2024 1:00 PM EDT Appointment Radiology [address] [place], [place] [id number] Renal cyst [N28.1] Radiology Comment on above: Renal cyst [N28.1] Start: 02-23-2024 Advance Directive Discussion Advance Directive Discussion [facility] Start: 10-24-2023 Covid-19 Vaccine ( season) Covid-19 Vaccine ( season) [facility] Start: 10-24-2023 Influenza vaccination Influenza Vacc ine (#1) [facility] Start: 10-06-2023 End: 10-06-2023 Patient encounter procedure 10/06/2023 10:00 AM EDT Office Visit General Surgery [address] [place], [place] [id number] Dalia Holguin APRN.KENO WRITER/RUNNER [address] [place], [place] [id number] 09-23 EGD follow up General Surgery Comment on above: 09-23 EGD follow up Start: 09-28-2023 End: 09-28-2023 Patient encounter procedure Cat Scan Comment on above: Pain of upper abdome n [R10.10] Start: 09-24-2023 End: 09-24-2023 Patient encounter procedure 09/24/2023 2:00 PM EDT Appointment Ambulatory Surgery [address] [place], [place] [id number] Trice Montes MD [address] [place] [address] Ambulatory Surgery Start: 09-24-2023 Subsequent hospital visit by physician 09/24/2023 11:54 AM EDT Hospital Encounter Ambulatory Surgery [address] [place], [place] [id number] Trice Montes MD [address] [place] [phone] Gastro-esophageal reflux disease without esophagitis [K21.9] Ambulatory Surgery Comment on above: Gastro-esophageal re flux disease without esophagitis [K21.9] Start: 05-27-2023 Covid-19 Vaccine ( season) Covid-19 Vaccine ( season) [facility] Start: 02-22-2023 Advance Directive Discussion Advance Directive Discussion [facility] Start: 12-14-2022 RSV Vaccine (1 - 1-d ose 75+ series) RSV Vaccine (1 - 1-dose 75+ series) [facility] Start: 10-09-2022 Patient referral [facility] Work Phone: Start: 10-23-2021 Influenza vaccination INFLUENZA (#1) [facility] Start: 05-13-2021 Colonoscopy w/biopsy single/multiple COLONOSCOPY AND BIOPSY [facility] Work Phone: Start: 05-13-2021 [facility] Start: 02-22-2021 ADVANCE DIRECTIVE DISCUSSION ADVANCE DIRECTIVE DISCUSSION [facility] Start: 02-22-2021 DEPRESSION ASSESSMENT DEPRESSION ASS ESSMENT [facility] Start: 12-24-2016 End: 12-24-2016 Appointment Appointment [facility] Work Phone: Start: 12-24-2016 End: 12-24-2016 Chest x-ray X-Ray, Chest, PA & Lateral [facility] Work Phone: Start: 12-14-2012 PNEUMOCOCCAL: 65+ (1 - PCV) PNEUMOCOCCAL: 65+ (1 - PCV) [facility] Start: 2007 RSV Vaccine (1 - 1-d ose 60+ series) RSV Vaccine (1 - 1-dose 60+ series) [facility] Start: 12-14-1997 SHINGRIX VACCINE (1 of 2) SHINGRIX VACCINE (1 of 2) [facility] Start: 12-14-1992 COLOGUARD (FIT-DNA) COLOGUARD (FIT-D NA) [facility] Start: 12-14-1992 Colonoscopy COLONOSCOPY [facility] Start: 12-14-1992 COLORECTAL CANCER SCREENING COLORECTAL CANCER SCREENING [facility] Start: 12-14-[address] COLONOGRAPHY [facility] Start: 12-14-1992 DIABETES SCREEN DIABETES SCREEN [facility] Start: 12-14-1992 Diabetes Screening Diabetes Screenin g [facility] Start: 12-14-1992 FECAL OCCULT BLOOD FECAL OCCULT BLOO D [facility] Start: 12-14-1992 Screening for malign ant neoplasm of colon [facility] Start: 12-14-1992 SIGMOIDOSCOPY SIGMOIDOSCOPY [facility] Start: 12-14-1982 Lipid panel Lipid Screening [facility] Start: 12-14-1982 LIPID SCREEN LIPID SCREEN [facility] Start: 12-14-1966 Urine microalbumin profile DTAP,TDAP,TD (1 - Tdap) [facility] Start: 12-14-1965 Anxiety Screening Anxiety Screening [facility] Start: 12-14-1965 Depression Screening Depression Scre ening [facility] Start: 12-14-1965 HEPATITIS C SCREENING HEPATITIS C [facility] Start: 12-14-1965 Hepatitis C screening Hepatitis C [facility] Start: 06-14-1948 COVID-19 VACCINE (#1) COVID-19 VACCI NE (#1) [facility] End: 10-20-2024 CT Abdomen and Pelvis W contrast IV CT ABD/PEL W IVCON Radiology Routine Pain of upper abdomen 1 Occurrences starting 09/21/2023 until 10/20/2024 [facility] Comment on above: 1 Occurrences starti ng 09/21/2023 until 10/20/2024 CT Abdomen and Pelvi s W contrast IV CT ABD/PEL W IVCON Radiology Routine Pain of upper abdomen 09/28/2023 2:39 PM EDT [facility] Work Phone: End: 09-20-2024 EGD DIAGNOSTIC EGD DIAGNOSTIC Endoscopy Routine Gastro-esophageal reflux disease without esophagitis 1 Occurrences starting 09/21/2023 until 09/20/2024 [facility] Work Phone: Comment on above: 1 Occurrences starti ng 09/21/2023 until 09/20/2024 Patient referral [facility] Work Phone: SURGICAL PATHOLOGY [facility] Work Phone: Comment on above: Release Upon Orderin g for 1 Occurrences starting 09/24/2023, 1 completed [facility] c Immunizations Immunization Date Immunization Notes Care Provider Fa [facility] 01-25-2023 influenza virus vaccine, unspecified formulation Dalia Holguin APRN.KENO WRITER/RUNNER Work Phone: [facility] 05-21-2020 Covid (Pfizer) Dr. Delma To nner Work Phone: [facility] 04-30-2020 Covid (Pfizer) Dr. Delma To nner Work Phone: [facility] Payers Date Payer Category Payer Self-pay [id number] 2012 Medicare [id number] 2012 Private Health Insurance [id number] 2012 Medicare [id number] 2012 Private Health Insurance [id number] Medicare [id number] Unknown [id number] Unknown [id number] Unknown [id number] [id number] [id number] Unknown [id number] [id number] [id number] Unknown [id number] [id number] [id number] Unknown [id number] [id number] [id number] Unknown [id number] [id number] [id number] Social History Date Type Detail Facility Start: 05-07-2021 End: 10-09-2022 Tobacco smoking status AKIS Unknown if ever smoked [facility] Work Phone: Start: 02-08-2018 Non-smoker [facility] Start: 1945 Sex Assigned At Male C [facility] Start: 10-09-2022 End: 09-20-2023 Tobacco smoking status NHIS Ex-smoker [facility] Start: 02-22-1961 End: 02-23-1968 History of tobacco use Current smoker [facility] Start: 02-22-1961 End: 02-23-1968 History of tobacco use Cigarette Smoker [facility] Start: 09-20-2023 End: 09-21-2023 Cigarettes smoked current (pack per day) - Reported 2 [facility] Start: 09-21-2023 End: 11-17-2023 Alcohol intake Current drinker of alcohol (finding) [facility] Start: 09-21-2023 End: 11-17-2023 Tobacco use panel [facility] National Score (1-10 0), lower number is lower risk 41 [facility] Start: 09-20-2023 Alcohol Comment 2-3 drinks per week. [facility] Start: 11-13-2021 Gender identity Identifies as male gender (finding) [facility] Start: 05-14-2024 Sex Male (finding) [facility] Goals Date Patient Goal Desired Activity /State Mental Status Date Assessment Result Facility 05-13-2021 Cognitive function Awake;Drowsy [facility] Work Phone: Clinical Notes 12-10-2021 to 09-25-2024 Rita Chaidez Jr., MD - 11/17/2023 1:29 PM Dalia Toscano APRN.KENO WRITER/RUNNER - 10/06/2023 10:00 AM Kayla Mcghee RT(R) - 09/28/2023 2:20 PM EDT Note Date & Type Note Facility 09-25-2024 Radiology Diagnostic study note [facility] Imaging Services [address] [place], [place] [id number] Chest without Contrast MR#: [id number] Acct: [id number] Name: SILVIA NICOLE II Rep #: [id number] : 1945 M 78 From: Jose Holguin MD PCP: Dr. Delma Bland MD Status: RE G CLI Study:Chest without Contrast Date of Exam: 09/25/24 Exam# [id number] Ordering Dr: Sebastian Jose MD PROCEDURE: CHEST WITHOUT CONTRAST 09/25/2024 REASON FOR EXAM: HYPOXEMIA History of hiatal hernia. TECHNIQUE: Chest CT without contrast. Coronal and Sagittal reconstruction series were provided. One or more dose reduction techniques were used (e.g., Automated exposure control, adjustment of the mA and/or kV according to patient size, use of iterative reconstruction technique RADIATION DOSE SUMMARY: CTDlvol: 12.46 mGy DLP: 482 0.77 mGycm COMPARISON: None FINDINGS: Hardware: None Lymph nodes: Small benign-appearing mediastinal lymph nodes. Heart and Vasculature: The heart is not enlarged. Atherosclerotic calcifications of the thoracic aorta. Thoracic aorta and pulmonary arteries have normal contours; noncontrast technique limits evaluation. Coronary Artery Calcifications: Present Lungs and Airways: There is elevation of the left hemidiaphragm with shift of the heart and mediastinal structures towards the right side of the midline. Mild increased linear markings at the left lung basesuggestive of scarring. Pleura: No pleural effusion. Upper Abdomen: Diffuse pancreatic atrophy. Focal calcification in the head of the pancreas. This may represent a possible distal common bile duct stone versus calcification of the head of the pancreas. 1.2 cm cyst in the right lobe of the liver inferiorly and medially. Bones: Degenerative changes of the thoracic spine. CT/Chest without Contrast IMPRESSION: Coronary artery calcification (CAC) is is present Elevation of the left hemidiaphragm. Findings suggestive of mild linear scarring at the left lung base. Reading Location: [facility] CC: Dr. Delma Bland MD; Dr. Sebastian Jose MD ~ Manager Area: Signed [facility] 11-17-2023 Note HNO ID: [id number] Author: RITA CHAIDEZ JR, MD Service: ? Author Type: Physician Type: Progress Notes Filed: 11/17/2023 13:30 Note Text: NEW PATIENT HISTORY AND PHYSICAL EXAM PATIENT INFO: Silvia Nicole II 77 year old REFERRING PROVIDER: Data Unavailable PCP: Delma Bland MD, MD HPI Silvia Nicole II is [...] Renal us prior Rita Chaidez Jr, MD [facility] 11-17-2023 History of Presen t illness Narrative NEW PATIENT HISTORY AND PHYSICAL EXAM PATIENT INFO: Silvia Nicole II 77 year old REFERRING PROVIDER: Data Unavailable PCP: Delma Bland MD, MD HPI Silvia Nicole II is [...] Chaidez Jr, MD documented in this encounter [facility] 10-06-2023 History of Presen t illness Narrative FOLLOW UP VISIT - ENDOSCOPY Silvia Nicole II 1945 [id number] REFERRING PHYSICIAN: Trice Montes [address] [facility] [address] Silvia Nicole II is a patient I [...] to the office as needed Dalia Holguin APRN.KENO WRITER/RUNNER documented in this encounter [facility] 10-06-2023 Note HNO ID: [id number] Author: DALIA HOLGUIN APRN.LEELEE Service: ? Author Type: Nurse Practitioner Type: Progress Notes Filed: 10/06/2023 11:29 Note Text: FOLLOW UP VISIT - ENDOSCOPY Silvia Nicole II 1945 [id number] REFERRING PHYSICIAN: Trice Montes [address] [facility] [address] Silvia Nicole II is a patient I [...] the office as needed Dalia Holguin APRN.LEELEE [facility] 09-28-2023 History of Presen t illness Narrative [...] PATIENT PRESENTS WITH AN IMPLANTABLE OR ATTACHED GLOBAL MARKETING COORDINATOR: No ALLERGIES: Reviewed and unchanged CONTRAST ALLERGY: [...] TIME: 2:45 PM documented in this encounter [facility] 09-28-2023 Note HNO ID: [id number] Author: KAYLA CABRERA RT(R) Service: ? Author Type: Forming Department Supervisor Type: Progress Notes Filed: 09/28/2023 14:46 Note [...] PATIENT PRESENTS WITH AN IMPLANTABLE OR ATTACHED GLOBAL MARKETING COORDINATOR: No ALLERGIES: Reviewed and unchanged CONTRAST ALLERGY: [...] DATE: September 28, 2023 TIME: 2:45 PM [facility] 09-24-2023 Attending History and physical note UPDATED [...] (FLONASE) 50 mcg/actuation nasal spray Use 1 Yreka in each nostril once daily. No current [...] entered by the nurse and reviewed by me Nursing Notes: Tnagela Nava RN 09/21/2023 12:20 PM Signed REVIEW [...] upper abdomen (R09.89) Throat clearing Dalia Holguin APRN.KENO WRITER/RUNNER [facility] 09-24-2023 History and physical note HISTORY [...] (FLONASE) 50 mcg/actuation nasal spray Use 1 Yreka in each nostril once daily. No current [...] entered by the nurse and reviewed by ky Nursing Notes: Tangela Nava RN 09/21/2023 12:20 [...] upper abdomen (R09.89) Throat clearing Dalia Holguin APRN.KENO WRITER/RUNNER [facility] 09-24-2023 History and physical note UPDATED [...] (FLONASE) 50 mcg/actuation nasal spray Use 1 Yreka in each nostril once daily. No current [...] entered by the nurse and reviewed by me Nursing Notes: Tangela Nava RN 09/21/2023 12:20 [...] upper abdomen (R09.89) Throat clearing Dalia Holguin APRN.KENO WRITER/RUNNER HISTORY AND PHYSICAL Silvia Nicole II : [...] (FLONASE) 50 mcg/actuation nasal spray Use 1 Yreka in each nostril once daily. No current [...] entered by the nurse and reviewed by me Nursing Notes: Tangela Nava RN 09/21/2023 12:20 [...] upper abdomen (R09.89) Throat clearing Dalia Holguin APRN.KENO WRITER/RUNNER documented in this encounter [facility] 09-24-2023 Note Formatting of this n ote might be different from the original. The patient received a copy of EGD discharge instructions that contain information for how to contact the physician who performed the procedure and when to seek medical care. Brenda Landa RN [facility] 09-24-2023 Miscellaneous Notes The patient received a copy of EGD discharge instructions that contain information for how to contact the physician who performed the procedure and when to seek medical care. Brneda Landa RN documented in this encounter [facility] 09-24-2023 Nurse Note Arrived in phase II via cart. Left lateral position. Sedated, but responds to verbal stimuli. Color normal; skin warm and dry. Respirations wnl and unlabored. Abdomen soft and with + bowel sounds in quads X 4. Patient resting comfortably. Family at bedside. Brenda Landa RN [facility] 09-24-2023 Nurse Note Arrived in phase II via cart. Left lateral position. Sedated, but responds to verbal stimuli. Color normal; skin warm and dry. Respirations wnl and unlabored. Abdomen soft and with + bowel sounds in quads X 4. Patient resting comfortably. Family at bedside. Brenda Landa RN documented in this encounter [facility] 09-23-2023 Telephone encounter Note View External Labs - CBC, CMP, TSH, T4, Lipid, Liver from [facility] [ID [id number]] [facility] 09-23-2023 Miscellaneous Notes View External Labs - CBC, CMP, TSH, T4, Lipid, Liver from [facility] [ID [id number]] Can we please request recent lab work done through Dr. Goldsmith office? Specifically looking for a CMP/BMP with creat & GFR prior to CT with contrast. ThanksDalia APRN.KENO WRITER/RUNNER documented in this encounter [facility] 09-21-2023 Nurse Note REVIEW OF SYSTEMS: [...] Colonoscopy: 2021 or 2022 Tangela Nava RN [facility] 09-21-2023 Nurse Note REVIEW OF SYSTEMS: [...] Tangela Nava RN documented in this encounter [facility] 09-21-2023 Telephone encounter Note Can we please request recent lab work done through Dr. Goldsmith office? Specifically looking for a CMP/BMP with creat & GFR prior to CT with contrast. Thanks, Dalia Holguin APRN.KENO WRITER/RUNNER [facility] Work Phone: 09-21-2023 History of Presen [...] (FLONASE) 50 mcg/actuation nasal spray Use 1 Yreka in each nostril once daily. No current [...] entered by the nurse and reviewed by ky Nursing Notes: Tangela Nava RN 09/21/2023 12:20 [...] Dalia Holguin APRN.LEELEE documented in this encounter [facility] 09-21-2023 Note HNO ID: [id number] Author: DALIA HOLGUIN APRN.CNP Service: ? Author [...] (FLONASE) 50 mcg/actuation nasal spray Use 1 Yreka in each nostril once daily. No current [...] entered by the nurse and reviewed by ky Nursing Notes: Tangela Nava RN 09/21/2023 12:20 [...] cardiac stent, de (more content not included)... [facility] 12-17-2021 Miscellaneous Notes The patient hasn't been seen by the provider. The patient is scheduled for a new patient appointment on 01/22/22. Please provide the medical records for the patient's appointment. Received MRI Brain with and without contrast from [facility]. Paperwork sent to Dr. Siu for review. For pt 01/22/22 apt. documented in this encounter [facility] 12-10-2021 Miscellaneous Notes Left the patient a voice message, mailed a reminder, and sent my chart message about the canceled appointment and new appointment. documented in this encounter [facility] Evaluation note Diagnosis Onset Date Family history of colon cancer in father acute Personal history of colonic polyps acute [facility] Work Phone: Evaluation note* Diagnosis Onset Date Resolution Status Family history of colon cancer in father acute Personal history of colonic polyps acute Contact with or suspected ex posure to other viral communicable disease acute [facility] Work Phone: Evaluation note* Diagnosis Onset Date Resolution Status Contact with or suspected ex posure to other viral communicable disease acute [facility] Work Phone: Evaluation noteNo assessment information available [facility] Work Phone: Evaluation note* Diagnosis Onset Date Resolution Status S/P lumbar and lumbosacral fusion by anterior techniqu e acute [facility] [place] Work Phone: Evaluation note* Diagnosis Onset Date Resolution Status S/P lumbar and lumbosacral fusion by anterior techniqu e acute Trochanteric bursitis of left hip acute [facility] [place] Work Phone: Evaluation note* Diagnosis Gastro-esophageal reflux disease without esophagitis- Primary Esophageal reflux Pain of upper abdomen Abdominal pain, other specified site Throat clearing Other symptoms involving head and neck [facility] Diagnosis Heartburn- Primary Gastro-esophageal reflux disease without esophagitis Esophageal reflux [facility] Diagnosis Pain of upper abdomen Abdominal pain, other specified site [facility] Diagnosis Gastroesophageal reflux disease with esophagitis without hemorrhage- Primary Cyst of right kidney Unspecified congenital cystic kidney disease [facility] Diagnosis Renal cyst- Primary Unspecified congenital cystic kidney disease documented in this encounter [facility] for referral (narrative)* Outpatient Procedure (Routine) - Closed Specialty Diagnoses / Procedures Referred By Arnold t Referred To Contact [facility] Diagnoses Gastro-esophageal reflux disease without esophagitis Procedures EGD DIAGNOSTIC ESOPHAGOGASTRODUODENOSC OPY TRANSORAL DIAGNOSTIC Dalia Holgiun APRN.KENO WRITER/RUNNER [address] [place] [address] [facility] [address] [place] [address] Referral ID Status Reason Start Date Expiration Date V isits Requested Visits Authorized [id number] Closed Auto-Generate d Referral 09/21/2023 02/22/2024 1 1 [facility] for referral (narrative)* Diagnostic Procedure Only (Routine) - Authorized Specialty Diagnoses / Procedures Referred By Arnold maya Referred To Contact [facility] Diagnoses Renal cyst Procedures US KIDNEY/BLADDER US RETROPERITONEAL REAL TIME W/IMAGE COMPLETE Rita Chaidez Jr., MD [facility] [place] [address] [place] [address] Referral ID Status Reason Start Date Expiration Date Visits Requested Visits Authorized [id number] Authorized Auto-Generat ed Referral 11/16/2024 12/16/2024 1 1 [facility] for referral (narrative)No reason for referral information [facility] Work [facility] Reason for visit Narrative* Outpatient Procedure (Routine) - Closed Specialty Diagnoses / Procedures Referred By Arnold t Referred To Contact [facility] Diagnoses Gastro-esophageal reflux disease without esophagitis Procedures EGD DIAGNOSTIC ESOPHAGOGASTRODUODENOSC OPY TRANSORAL DIAGNOSTIC Dalia Holguin APRN.CNP [address] [place] [address] [facility] [place] [address] Referral ID Status Reason Start Date Expiration Date V isits Requested Visits Authorized [id number] Closed Auto-Generate d Referral 09/21/2023 02/22/2024 1 1 [facility] Summary Purpose Family History No Family History Records Found Relationship Condition Age at Onset Recorded Date/T james Not Specified Malignant neoplasm Unknown son Cardiac disease Unknown Advance Directives No Advanced Directives Records Found Advance Directive Response Recorded Date/ Time Advance Directives Yes August 19 6:59am Living Will Yes May 07, 2021 1:47pm Power of Residential Electrician Yes May 07 1:47pm Advance Directive Response Recorded Date/ Time Name of Medical Power of Residential Electrician May 07, 2021 1:47pm Advance Directives Yes August 19 6:59am Living Will Yes May 07, 2021 1:47pm Power of Residential Electrician Yes May 07 1:47pm Advance Directive Response Recorded Date/ Time Advance Directives Yes August 19 5:59am Living Will Yes May 07, 2021 12:47pm Power of Residential Electrician Yes May 07 12:47pm Advance Directive Response [...] Date R HAND AND WRIST, RX HERE May 11 10:30am Chief Complaint Admit Date R20.2 Paresthesia of skin July 05, 2024 10:30am R20.2 Paresthesia of skin July 05, 2024 12:38pm R HAND AND WRIST, RX HERE July 13, 2024 10:00am Hypoxemia September 25, 2024 9:5 5am Reason for Referral Specialty Diagnoses / Procedures Referred By Arnold t Referred To Contact CT IMAGING Diagnoses Pain of upper abdomen Procedures CT ABD/PEL W IVCON CT ABD & PELVIS W/CONTRAST Dalia Holguin APRN.KENO WRITER/RUNNER [address] [place] [address] [place] [address] Referral ID Status Reason Start Date Expiration Date Visits Requested Visits Authorized [id number] Pending Review Auto-Generat ed Referral 09/21/2023 10/20/2024 1 1 Specialty Diagnoses / Procedures Referred By Arnold t Referred To Contact [facility] Diagnoses Gastro-esophageal reflux disease without esophagitis Procedures EGD DIAGNOSTIC ESOPHAGOGASTRODUODENOSC OPY TRANSORAL DIAGNOSTIC Dalia Holguin APRN.KENO WRITER/RUNNER [address] [place] [address] [facility] [address] [place] [address] Referral ID Status Reason Start Date Expiration Date Visits Requested Visits Authorized [id number] Authorized Auto-Generat ed Referral 09/21/2023 02/22/2024 1 1 Specialty Diagnoses / Procedures Referred By Arnold maya Referred To Contact Nephrology Diagnoses Cyst of right kidney Procedures CONSULT TO NEPHROLOGY OFFICE/OUTPATIENT [facility] 60 MINUTES Dalia Holguin APRN.KENO WRITER/RUNNER [address] [place] [address] Referral ID Status Reason Start Date Expiration Date Visits Requested Visits Authorized [id number] Authorized PCP Requested Referral 10/06/2023 10/05/2024 1 1 Additional Source Comments (unrecognized sect ion and content) No Status Records FoundNo Status Records FoundNo Status Records FoundNo Status Records Found INFORMATION SOURCE (unrecogn ized section and content) DATE CREATED AUTHOR 08/18/2017 [facility] DATE CREATED AUTHOR AUTHOR'S ORGANIZ ATION 10/08/2023 [facility] DATE CREATED AUTHOR AUTHOR'S ORGANIZ ATION 11/20/2023 [facility] DATE CREATED AUTHOR AUTHOR'S ORGANIZ ATION 10/01/2024 [facility] Goals (unrecognized section and content) Goals [...] or prosecute any alcohol or drug abuse patient.[facility] the event this information is protected by the Federal Confidentiality of Alcohol and Drug Abuse Patient Records regulations: The Federal rules restrict any use of the information to criminally investigate or prosecute any alcohol or drug abuse patient.[facility] the event this information is protected by the Federal Confidentiality of Alcohol and Drug Abuse Patient Records regulations: The Federal rules restrict any use of the information to criminally investigate or prosecute any alcohol or drug abuse patient.[facility] the event this information is protected by the Federal Confidentiality of Alcohol and Drug Abuse Patient Records regulations: The Federal rules restrict any use of the information to criminally investigate or prosecute any alcohol or drug abuse patient.[facility] the event this information is protected by the Federal Confidentiality of Alcohol and Drug Abuse Patient Records regulations: The Federal rules restrict any use of the information to criminally investigate or prosecute any alcohol or drug abuse patient.[facility] the event this information is protected by the Federal Confidentiality of Alcohol and Drug Abuse Patient Records regulations: The Federal rules restrict any use of the information to criminally investigate or prosecute any alcohol or drug abuse patient.[facility] the event this information is protected by the Federal Confidentiality of Alcohol and Drug Abuse Patient Records regulations: The Federal rules restrict any use of the information to criminally investigate or prosecute any alcohol or drug abuse patient.[facility] the event this information is protected by the Federal Confidentiality of Alcohol and Drug Abuse Patient Records regulations: The Federal rules restrict any use of the information to criminally investigate or prosecute any alcohol or drug abuse patient.[facility] the event this information is protected by the Federal Confidentiality of Alcohol and Drug Abuse Patient Records regulations: The Federal rules restrict any use of the information to criminally investigate or prosecute any alcohol or drug abuse patient.[facility] the event this information is protected by the Federal Confidentiality of Alcohol and Drug Abuse Patient Records regulations: The Federal rules restrict any use of the information to criminally investigate or prosecute any alcohol or drug abuse patient.[facility] the event this information is protected by the Federal Confidentiality of Alcohol and Drug Abuse Patient Records regulations: The Federal rules restrict any use of the information to criminally investigate or prosecute any alcohol or drug abuse patient.[facility] Hospital[facility] the event this information is protected by the Federal Confidentiality of Alcohol and Drug Abuse Patient Records regulations: The Federal rules restrict any use of the information to criminally investigate or prosecute any alcohol or drug abuse patient.[facility] Reason for Visit (unrecogniz ed section and content) Reason Comments Appointment Rescheduled Reason Comments Patient Update MRI results Reason Comments Consult 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 Reason Comments Radiology CT Specialty Diagnoses / Procedures Referred By Arnold maya Referred To Contact CT IMAGING Diagnoses Pain of upper abdomen Procedures CT ABD/PEL W IVCON CT ABD & PELVIS W/CONTRAST Dalia Holguin APRN.KENO WRITER/RUNNER [address] [place] [address] Ct Imaging [id number] Referral ID Status Reason Start Date Expiration Date V isits Requested Visits Authorized [id number] Closed Auto-Generate d Referral 09/21/2023 10/20/2024 1 1 Reason Comments Follow Up Review EGD results, review CT scan results. Reason Comments Renal Cyst Reason Comments Refill Request Care Teams (unrecognized sec tion and content) Die Presser Relationship Specialty Start Date End Date Delma Bland [address] [place], [place] [address] PCP - General Family Medicine 9/14/22 Blas Oseguera [address] [place], [place] [address] Referring Ent - Otolaryngology 11/05/21 Die Presser Relationship Specialty Start Date End Date Delma Bland [address] [facility] [address] [place], [place] [id number] PCP - General Family Medicine 11/05/21 Blas Oseguera [address] [place], [place] [address] Referring Ent - Otolaryngology 11/05/21 Team Status: Active Member Role Status Dates Dr. Delma Bland MD Family Provider Active Dr. Delma Bland MD Primary Care Provider Active Team Status: Inactive Member Role Status Dates Dr. Delma Bland MD Primary Care Pr ovider, Attending Provider, Referring Provider Active Team Status: Inactive Member Role Status Dates Dr. Delma Bland MD Primary Care Provider, Attend ing Provider Active Team Status: Inactive Member Role Status Dates Dr. Delma Bland MD Primary Care Provider, Referr ing Provider Active Dr. Cuba Mccann DO Attending Provider Active Team Status: Inactive Member Role Status Dates Dr. Delma Bland MD Primary Care Provider Active Dr. Dougie Mary MD Attending Provider Active Team Status: Inactive Member Role Status Dates Dr. Delma Bland MD Primary Care Provider Active Dr. Cuba Mccann DO Attending Provider, Referring P chavo Active Die Presser Relationship Specialty Start Date End Date Delma Bland MD [address] [facility] [address] [place], [place] [address] PCP - General Family Medicine 11/05/21 Blas Oseguera [address] [place] [address] Referring Ent - Otolaryngology 11/05/21 Die Presser Relationship Specialty Start Date End Date Delma Bland MD [address] [facility] [address] [place], [place] [address] PCP - General Family Medicine 11/05/21 Blas Oseguera [address] [facility], [place] [address] [phone] Referring Ent - Otolaryngology 11/05/21 Die Presser Relationship Specialty Start Date End Date Delma Bland MD [address] [facility] [address] [place], [place] [address] PCP - General Family Medicine 11/05/21 Blas Oseguera [address] [facility] [address] Referring Ent - Otolaryngology 11/05/21 Die Presser Relationship Specialty Start Date End Date Delma Bland MD [address] [facility] [address] [place], [place] [address] PCP - General Family Medicine 11/05/21 Blas Oseguera [address] [facility], [place] [address] [phone] Referring Ent - Otolaryngology 11/05/21 Die Presser Relationship Specialty Start Date End Date Delma Bland MD [address] [facility] [address] [place], [place] [address] PCP - General Family Medicine 11/05/21 Blas Oseguera [address] [facility], [place] [address] [phone] Referring Ent - Otolaryngology 11/05/21 Die Presser Relationship Specialty Start Date End Date Delma Blnad MD [address] [place], [place] [address] PCP - General Family Medicine 11/05/21 Blas Oseguera [address] [place] [address] Referring Ent - Otolaryngology 11/05/21 Team Status: Active Member Role Status Dates Dr. Delma Bland MD Primary Care Provider Active Team Status: Inactive Member Role Status Dates Dr. Delma Bland MD Primary Care Provider Active Start: May 04, 2024 End: May 04, 2024 Dr. Delma Bland MD Attending Provider Active Start: May 04, 2024 End: May 04, 2024 Dr. Delma Bland MD Referring Provider Active Start: May 04, 2024 End: May 04, 2024 Team Status: Active Member Role Status Dates Dr. Delma Bland MD Primary Care Provider Active Start: May 11, 2024 Dr. Amadeo Longo DO Attending Provider Active Start: May 11, 2024 Dr. Amadeo Longo DO Referring Provider Active Start: May 11, 2024 Team Status: Active Member Role/Relationship Status Dates Dr. Delma Bland MD Primary Care Provider Active Team Status: Inactive Member Role/Relationship Status Dates Dr. Delma Bland MD Primary Care Provider Active Start: June 08, 2024 End: June 08, 2024 Dr. Delma Bland MD Attending Provider Active Start: June 08, 2024 End: June 08, 2024 Dr. Delma Bland MD Referring Provider Active Start: June 08, 2024 End: June 08, 2024 Team Status: Inactive Member Role/Relationship Status Dates Dr. Delma Bland MD Primary Care Provider Active Start: July 05, 2024 End: July 05, 2024 Dr. Amadeo Longo DO Attending Provider Active Start: July 05, 2024 End: July 05, 2024 Dr. Amadeo Longo DO Referring Provider Active Start: July 05, 2024 End: July 05, 2024 Team Status: Active Member Role/Relationship Status Dates Dr. Delma Bland MD Primary Care Provider Active Start: July 05, 2024 Dr. Amadeo Longo DO Referring Provider Active Start: July 05, 2024 Dr. Amadeo Longo DO Other Provider Active Start: July 05, 2024 Dr. Ana Haney MD Attending Provider Active S tart: July 05, 2024 Team Status: Active Member Role/Relationship Status Dates Dr. Delma Bland MD Primary Care Provider Active Start: July 13, 2024 Dr. Amadeo Longo DO Attending Provider Active Start: July 13, 2024 Dr. Amadeo Longo DO Referring Provider Active Start: July 13, 2024 Team Status: Inactive Member Role/Relationship Status Dates Dr. Delma Bland MD Primary Care Provider Active Start: September 25, 2024 End: September 25, 2024 Dr. Sebastian Jose MD Attending Provider Active Start: September 25, 2024 End: September 25, 2024 Dr. Sebastian Jose MD Referring Provider Active Start: September 25, 2024 End: September 25, 2024 FOR RECORDS PERTAINING TO PATIENTS WHO [...] BE BASED ON THE PRIMARY CLINICAL RECORDS. [employer] provides no warranty or guarantee of the accuracy or completeness of information in this document.
--- OUTSIDE RECORDS SUMMARY | 2024-10-02 21:17 | XMS RPT_ITS | CCD ---
Author Organization [facility] [place] Care Team Providers Care Blender Name Role Phone Keo Chong Unavailable Perez [...] [phone] Dr. Delma Bland Referring Provider Dr. Delma Bland Primary Care Provider [phone] Dr. Delma Bland Referring Provider Delma Bland Primary Care Provider [phone] Blas Oseguera Unavailable [phone] Dr. Delma Bland Primary Care Provider [phone] Dr. Delma Bland MD Attending Provider Dr. eDlma Bland MD Referring Provider Dr. Amadeo Longo DO Attending Provider Dr. Amadeo Longo DO Referring Provider Dr. Delma Bland MD Primary Care Provider Dr. Delma Bland MD Attending Provider Dr. Delma Bland MD Referring Provider Dr. Amadeo Longo DO Attending Provider Dr. Amadeo Longo DO Referring Provider Dr. Amadeo Longo DO Other Provider Dr. Ana Haney MD Attending Provider [phone] Damon DOHERTY, Dr. Sebastian Larios Attending Provider Dr. Sebastian Jose MD, V Referring Provider [...] Facility (2 sources) naproxen Drug Allergy 12-25-19 [facility] Work Phone: (20 sources) Naproxen; Translations: [NAPROXEN] Drug Allergy 09-02-19 19 Mental Status Change [facility] (6 sources) decongest Propensity to adverse reactions 09-02-19 19 unknown [facility] (7 sources) Chlorpheniramine Drug Allergy 06-09-19 23 PT UNSURE OF REACTION [facility] (7 sources) Pseudoephedrine Drug Allergy 06-09-19 23 PT UNSURE OF REACTION [facility] (12 sources) Decongestants, Nasal; Translations: [DECONGESTANT TABLET] Propensity to adverse reactions to drug 09-20-19 Other: See Comments [facility] (12 sources) Ragweed pollen; Translations: [RAGWEED POLLEN] Drug Allergy 09-20-19 Other: See Comments [facility] (1 source) Chlorpheniramine Drug Allergy 10-10-19 [facility] (1 source) Naproxen Drug Allergy 10-10-19 23 [facility] (1 source) Pseudoephedrine Drug Allergy 10-10-19 23 [facility] Medications Current Medications Medication Drug Class(es) [...] ASPIRIN 81 MG TABS as directed ASPIRIN [id number] Perez COYLE cyclobenzaprine hydrochloride 5 mg oral [...] (FLONASE) 50 mcg/actuation nasal spray Use 1 [place] in each nostril once daily. 0 09/21/2023 [...] ALLERGY 10 MG TBDP as directed LORATADINE [id number] Perez COYLE rosuvastatin calcium 10 mg oral [...] every 4-6 hours as needed ALBUTEROL SULFATE [id number] Perez COYLE amoxicillin 875 mg / clavulanate 125 mg oral tablet (2 sources) Penicillin-class Antibacterial Start: 12-24-2016 AUGMENTIN 875-125 MG TABS 1 tablet twice a day AMOXICILLIN-POT CLAVULANATE [id number] Perez COYLE Benzocaine (1 source) Standardized Chemical Allergen Start: 09-24-2023 End: 09-24-2023 benzocaine 20% 1 [place] (TOPEX) calcium chloride 0.0014 meq/ml / potassium [...] Facility Chest without Contraston Chest without Contrast [facility] Imaging Services [address] [place] [address] Chest without Contrast MR#: [id number] Acct: [id number] Name: SILVIA NICOLE II Rep #: [id number] : 1945 M 78 From: Sami staples MD PCP: Dr. Delma Bland MD Status: REG CLI Study: Chest without Contrast Date of Exam: 09/25/24 Exam# [id number] Ordering Dr: Sebastian Jose MD PROCEDURE: CHEST [...] at the left lung base. Reading [facility] CC: Dr. Delma Bland MD; Dr. Sebastian Jose MD Circulation Director: Signed Normal [facility] NCS and/or EMG Patienton NCS and/or EMG Patient [facility] Pulmonary Services/Neurology [address] [place] [address] MR#: [id number] Acct: [id number] Name: SILVIA NICOLE II Rep #: [id number] : 1945 78 From: Ana Haney MD Referring Dr: Amadeo Longo DO Status: REG C LI Location: [facility] Date: 07/05/24 Sex: M C NCS and/or EMG Patient Report Ordering Doctor: Amadeo Longo DATE OF SERVICE: 07/05/24 Silvia presents for electrodiagnostic testing of the right upper limb. 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 He denies numbness. He reports intermittent wrist [...] Multi Select Codes Neurology Neurology Interp Codes: 37831-51 Musc test done w/n test comp (interp) and 11421-32 Nrv cndj test 7- 8 studies (interp) 07/05/24 1242 Date Ana Haney MD CC: Dr. Ana Haney MD; Dr. Delma Bland MD; Dr. Amadeo Longo DO Date Dictated: 07/05/24 1238 Date Transcribed: 07/05/241237 Circulation Director: JANNETH Signed Normal [facility] Re-Evalution OTon 06-20-2024 Re-Evalution OT [facility] Occupational Therapy [facility] [address] [place] [address] / REEVALUATION / MEDICARE RECERTIFICATION OCCUPATIONAL THERAPY MR#: [id number] Acct: [id number] Name: SILVIA NICOLE II Rep #: [id number] : 1945 78 From: Maeve Hammond OTR/Demarco, [...] he had set back. 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 Sincerely, Maeve Hammond, JUAN ANTONIOR/L, T 06/20/24 1021 CC: Dr. Delma Bland MD; Dr. Amadeo Longo, [place] Signed For Medicare only, by signing this I certify the plan of care. Physicians Signature Date Normal [facility] Absolute lymphocyte countOrd ered By: Delma Bland on 06-08-2024 Lymphocytes Auto (Unsp spec) [#/Vol] 3.38 10*3/uL 0.83-4.51 [facility] Absolute neutrophil countOrd ered By: Delma Bland on 06-08-2024 Neutrophils (Bld) [#/Vol] 3.2 10*3/uL 2.0-7.7 [facility] Anion gap in Serum or Plasma Ordered By: Delma Bland on 06-08-2024 Anion gap [Moles/Vol] 11 mmol/L 5-15 [facility] Automated lymphocyte count a s percentage of total leukocytesOrdered By: Delma Bland on 06-08-2024 Lymphocytes/100 WBC Auto (Unsp spec) 46.1 % High 19- [facility] BUN/creatinine ratioOrdered By: Delma Bland on 06-08-2024 Urea nitrogen/Creatinine [Mass ratio] 12.6 mg/mg 10- [facility] Basophil percentageOrdered B y: Delma Bland on 06-08-2024 Basophils/100 WBC (Bld) 0.7 % 0-1 [facility] Bilirubin, totalOrdered By: Delma Bland on 06-08-2024 Bilirubin [Mass/Vol] 0.55 mg/dL 0.00-1.30 [facility] CBC W/Diff, Automatedon 05-23 Absolute Lymph 3.38 X10 3/uL Normal 0.83-4.51 [facility] Comment on above: Order Comment: Order Date: 05/09/24Order Info: 0184-1 - CBCD Performed By: #### L 100.0100, L506.0400 ####[facility] [address] [place], [address] Absolute Neut 3.2 X10 3/uL Normal 2.0-7.7 [facility] Comment on above: Order Comment: Order Date: 05/09/24Order Info: 0184-1 - CBCD Performed By: #### L 100.0100, L506.0400 ####[facility] [address] [place], [address] Basophils/100 WBC (Bld) 0.7 % Normal 0-1 [facility] Comment on above: Order Comment: Order Date: 05/09/24Order Info: 0184-1 - CBCD Performed By: #### L 100.0100, L506.0400 ####[facility] [address] [place], [address] Eosinophils/100 WBC (Bld) 1.8 % Normal 0-5 [facility] Comment on above: Order Comment: Order Date: 05/09/24Order Info: 0184-1 - CBCD Performed By: #### L 100.0100, L506.0400 ####[facility] [address] [place], [address] Erythrocyte distribution width (RBC) [Ratio] 12.2 % Normal 11.6-14.6 [facility] Comment on above: Order Comment: Order Date: 05/09/24Order Info: 0184-1 - CBCD Performed By: #### L 100.0100, L506.0400 ####[facility] [address] [place], [address] Hematocrit (Bld) [Volume fraction] 41.5 % Normal 40-54 [facility] Comment on above: Order Comment: Order Date: 05/09/24Order Info: 0184-1 - CBCD Performed By: #### L 100.0100, L506.0400 ####[facility] [address] [place], [address] Hemoglobin (Bld) [Mass/Vol] 13.6 g/dL Normal 13.0-16.5 [facility] Comment on above: Order Comment: Order Date: 05/09/24Order Info: 0184-1 - CBCD Performed By: #### L 100.0100, L506.0400 ####[facility] [address] [place], [address] IG% 0.300 Normal 0.0-0.9 [facility] Comment on above: Order Comment: Order Date: 05/09/24Order Info: 0184-1 - CBCD Result Comment: IG% - Immature Granulocytes (promyelocytes, myelocytes and metamyelocytes) > 1% indicates that a LEFT SHIFT is Present. Performed By: #### L 100.0100, L506.0400 ####[facility] [address] [place], [address] Lymphocytes/100 WBC (Bld) 46.1 % High 19-41 [facility] Comment on above: Order Comment: Order Date: 05/09/24Order Info: 0184-1 - CBCD Performed By: #### L 100.0100, L506.0400 ####[facility] [address] [place], [address] MCH (RBC) [Entitic mass] 32.5 pg High 27.0-32.0 [facility] Comment on above: Order Comment: Order Date: 05/09/24Order Info: 018- - CBCD Performed By: #### L 100.0100, L506.0400 ####[facility] [address] [place], [address] MCHC (RBC) [Mass/Vol] 32.8 g/dL Normal 32-36 [facility] Comment on above: Order Comment: Order Date: 05/09/24Order Info: 0184-1 - CBCD Performed By: #### L 100.0100, L506.0400 ####[facility] [address] [place], [address] MCV (RBC) [Entitic vol] 99.3 fL High 80-94 [facility] Comment on above: Order Comment: Order Date: 05/09/24Order Info: 0184-1 - CBCD Performed By: #### L 100.0100, L506.0400 ####[facility] [address] [place], [address] Monocytes/100 WBC (Bld) 7.6 % Normal 0-10 [facility] Comment on above: Order Comment: Order Date: 05/09/24Order Info: 0184-1 - CBCD Performed By: #### L 100.0100, L506.0400 ####[facility] [address] [place], [address] Neutrophils/100 WBC (Bld) 43.5 % Low 47-70 [facility] Comment on above: Order Comment: Order Date: 05/09/24Order Info: 4-1 - CBCD Performed By: #### L 100.0100, L506.0400 ####[facility] [address] [place], [address] Nucleated RBC (Bld) [#/Vol] 0 10*3/uL Normal 0-5 [facility] Comment on above: Order Comment: Order Date: 05/09/24Order Info: 018- - CBCD Performed By: #### L 100.0100, L506.0400 ####[facility] [address] [place], [address] Platelet mean volume (Bld) [Entitic vol] 11.2 fL Normal 6.2-12.0 [facility] Comment on above: Order Comment: Order Date: 05/09/24Order Info: 018- - CBCD Performed By: #### L 100.0100, L506.0400 ####[facility] [address] [place], [address] Platelets (Bld) [#/Vol] 171 10*3/uL Normal 150-450 [facility] Comment on above: Order Comment: Order Date: 05/09/24Order Info: 018-1 - CBCD Performed By: #### L 100.0100, L506.0400 ####[facility] [address] [place], [address] RBC (Bld) [#/Vol] 4.18 10*6/uL Low 4.6-6.2 [facility] Comment on above: Order Comment: Order Date: 05/09/24Order Info: 0184- - CBCD Performed By: #### L 100.0100, L506.0400 ####[facility] [address] [place], [address] RDW SD 44.3 fl High 35.1-43.9 [facility] Comment on above: Order Comment: Order Date: 05/09/24Order Info: 183- - CBCD Performed By: #### L 100.0100, L506.0400 ####[facility] [address] [place], [address] WBC (Bld) [#/Vol] 7.3 10*3/uL Normal 4.4-11.0 [facility] Comment on above: Order Comment: Order Date: 05/09/24Order Info: 183- - CBCD Performed By: #### L 100.0100, L506.0400 ####[facility] [address] [place], [address] Calculated very low density lipoprotein (VLDL) cholesterol measurementOrdered By: Delma Bland on 06-08-2024 Calculated very low density lipoprotein (VLDL) cholesterol measurement 15 mg/dL 5-40 [facility] Carbon dioxide, total [Moles /volume] in Central venous bloodOrdered By: Delma Bland on 06-08-2024 CO2 [Moles/Vol] 24.0 mmol/L 21.0-32.0 [facility] Chloride assayOrdered By: Viviana Bland on 06-08-2024 Chloride [Moles/Vol] 103 mmol/L 98-108 [facility] Comprehensive Metabolic Prof ilon 06-08-2024 Albumin [Mass/Vol] 4.2 g/dL Normal 3.4-4.8 [facility] Comment on above: Order Comment: Order Date: 05/09/24Order Info: [id number] - CMPOrder Info: [id number] - LIPIDOrder Info: [id number] - TSHOrder Info: [id number] - PSAOrder Info: 3024-7 - T4F Performed By: #### L 501.9910, L501.9520, L500.4100, L501.9985, L500.4050 ####[facility] [address] [place], [address] Albumin/Globulin [Mass ratio] 1.5 {ratio} Normal 0.9-2.4 [facility] Comment on above: Order Comment: Order Date: 05/09/24Order Info: [id number] - CMPOrder Info: [id number] - LIPIDOrder Info: [id number] - TSHOrder Info: [id number] - PSAOrder Info: 3024-7 - T4F Performed By: #### L 501.9910, L501.9520, L500.4100, L501.9985, L500.4050 ####[facility] [address] [place], [address] ALK PHOS 64 U/L Normal 40-129 [facility] Comment on above: Order Comment: Order Date: 05/09/24Order Info: [id number] - CMPOrder Info: [id number] - LIPIDOrder Info: [id number] - TSHOrder Info: [id number] - PSAOrder Info: 3024-7 - T4F Performed By: #### L 501.9910, L501.9520, L500.4100, L501.9985, L500.4050 ####[facility] [address] [place], [address] ALT [Catalytic activity/Vol] 14 U/L Normal <=46 [facility] Comment on above: Order Comment: Order Date: 05/09/24Order Info: [id number] - CMPOrder Info: [id number] - LIPIDOrder Info: [id number] - TSHOrder Info: [id number] - PSAOrder Info: 3024-7 - T4F Performed By: #### L 501.9910, L501.9520, L500.4100, L501.9985, L500.4050 ####[facility] [address] [place], [address] AST [Catalytic activity/Vol] 24 U/L Normal <=37 [facility] Comment on above: Order Comment: Order Date: 05/09/24Order Info: 86-1 - CMPOrder Info: [id number] - LIPIDOrder Info: 6-3 - TSHOrder Info: [id number] - PSAOrder Info: 3024-7 - T4F Performed By: #### L 501.9910, L501.9520, L500.4100, L501.9985, L500.4050 ####[facility] [address] [place], [address] Bilirubin [Mass/Vol] 0.55 mg/dL Normal 0.00-1.30 [facility] Comment on above: Order Comment: Order Date: 05/09/24Order Info: 86-1 - CMPOrder Info: [id number] - LIPIDOrder Info: [id number] - TSHOrder Info: [id number] - PSAOrder Info: 3024-7 - T4F Performed By: #### L 501.9910, L501.9520, L500.4100, L501.9985, L500.4050 ####[facility] [address] [place], [address] BUN/CRE 12.6 RATIO Normal 10-20 [facility] Comment on above: Order Comment: Order Date: 05/09/24Order Info: 785-1 - CMPOrder Info: [id number] - LIPIDOrder Info: 3 - TSHOrder Info: [id number] - PSAOrder Info: 3024-7 - T4F Performed By: #### L 501.9910, L501.9520, L500.4100, L501.9985, L500.4050 ####[facility] [address] [place], [address] Calcium [Mass/Vol] 9.2 mg/dL Normal 7.6-11.0 [facility] Comment on above: Order Comment: Order Date: 05/09/24Order Info: 86-1 - CMPOrder Info: [id number] - LIPIDOrder Info: [id number] - TSHOrder Info: [id number] - PSAOrder Info: 3024-7 - T4F Performed By: #### L 501.9910, L501.9520, L500.4100, L501.9985, L500.4050 ####[facility] [address] [place], [address] Chloride [Moles/Vol] 103 mmol/L Normal 98-108 [facility] Comment on above: Order Comment: Order Date: 05/09/24Order Info: [id number] - CMPOrder Info: [id number] - LIPIDOrder Info: 3 - TSHOrder Info: [id number] - PSAOrder Info: 3024-7 - T4F Performed By: #### L 501.9910, L501.9520, L500.4100, L501.9985, L500.4050 ####[facility] [address] [place], [address] CO2 [Moles/Vol] 24.0 mmol/L Normal 21.0-32.0 [facility] Comment on above: Order Comment: Order Date: 05/09/24Order Info: 86-1 - CMPOrder Info: [id number] - LIPIDOrder Info: 3 - TSHOrder Info: [id number] - PSAOrder Info: 3024-7 - T4F Performed By: #### L 501.9910, L501.9520, L500.4100, L501.9985, L500.4050 ####[facility] [address] [place], [address] Creatinine [Mass/Vol] 1.11 mg/dL Normal 0.70-1.20 [facility] Comment on above: Order Comment: Order Date: 05/09/24Order Info: 0786-1 - CMPOrder Info: [id number] - LIPIDOrder Info: [id number] - TSHOrder Info: [id number] - PSAOrder Info: 3024-7 - T4F Performed By: #### L 501.9910, L501.9520, L500.4100, L501.9985, L500.4050 ####[facility] [address] [place], [place], [address] GAP 11 Normal 5-15 [facility] Comment on above: Order Comment: Order Date: 05/09/24Order Info: 0786-1 - CMPOrder Info: [id number] - LIPIDOrder Info: 3 - TSHOrder Info: [id number] - PSAOrder Info: 7 - T4F Performed By: #### L 501.9910, L501.9520, L500.4100, L501.9985, L500.4050 ####[facility] [address] [place], [place], [address] GFR/1.73 sq M.predicted among non-blacks MDRD (S/P/Bld) [Vol rate/Area] 69 mL/min/{1.73_m2} Normal >60 [facility] Comment on above: Order Comment: Order Date: 05/09/24Order Info: [id number] - CMPOrder Info: - LIPIDOrder Info: [id number] - TSHOrder Info: [id number] - PSAOrder Info: 7 - T4F Result Comment: mL/m in/1.73m2 CKD-EPI Creatinine Equation (2020) Performed By: #### L 501.9910, L501.9520, L500.4100, L501.9985, L500.4050 ####[facility] [address] [place], [place], [address] Globulin (S) [Mass/Vol] 2.9 g/dL Normal 2.2-4.2 [facility] Comment on above: Order Comment: Order Date: 05/09/24Order Info: 86-1 - CMPOrder Info: [id number] - LIPIDOrder Info: 3 - TSHOrder Info: 2851 - PSAOrder Info: 3027 - T4F Performed By: #### L 501.9910, L501.9520, L500.4100, L501.9985, L500.4050 ####[facility] [address] [place], [address] Glucose [Mass/Vol] 88 mg/dL Normal 70-99 [facility] Comment on above: Order Comment: Order Date: 05/09/24Order Info: [id number] - CMPOrder Info: [id number] - LIPIDOrder Info: [id number] - TSHOrder Info: [id number] - PSAOrder Info: 3024-7 - T4F Performed By: #### L 501.9910, L501.9520, L500.4100, L501.9985, L500.4050 ####[facility] [address] [place], [address] Potassium [Moles/Vol] 4.4 mmol/L Normal 3.3-5.1 [facility] Comment on above: Order Comment: Order Date: 05/09/24Order Info: 86-1 - CMPOrder Info: [id number] - LIPIDOrder Info: 6-3 - TSHOrder Info: [id number] - PSAOrder Info: 3024-7 - T4F Performed By: #### L 501.9910, L501.9520, L500.4100, L501.9985, L500.4050 ####[facility] [address] [place], [address] Sodium [Moles/Vol] 138 mmol/L Normal 133-145 [facility] Comment on above: Order Comment: Order Date: 05/09/24Order Info: [id number] - CMPOrder Info: [id number] - LIPIDOrder Info: [id number] - TSHOrder Info: [id number] - PSAOrder Info: 3024-7 - T4F Performed By: #### L 501.9910, L501.9520, L500.4100, L501.9985, L500.4050 ####[facility] [address] [place], [address] T PROT 7.1 g/dL Normal 5.9-8.4 [facility] Comment on above: Order Comment: Order Date: 05/09/24Order Info: [id number] - CMPOrder Info: [id number] - LIPIDOrder Info: 3 - TSHOrder Info: 2851 - PSAOrder Info: 3027 - T4F Performed By: #### L 501.9910, L501.9520, L500.4100, L501.9985, L500.4050 ####[facility] [address] [place], [place], [address] Urea nitrogen [Mass/Vol] 14 mg/dL Normal 4-19 [facility] Comment on above: Order Comment: Order Date: 05/09/24Order Info: 0786 - CMPOrder Info: [id number] - LIPIDOrder Info: 3 - TSHOrder Info: [id number] - PSAOrder Info: 7 - T4F Performed By: #### L 501.9910, L501.9520, L500.4100, L501.9985, L500.4050 ####[facility] [address] [place], [place], [address] Eosinophil percentageOrdered By: Delma Bland on 06-08-2024 Eosinophils/100 WBC (Bld) 1.8 % 0-5 [facility] Erythrocyte distribution wid th ratioOrdered By: Delma Bland on 06-08-2024 Erythrocyte distribution width (RBC) [Ratio] 12.2 % 11.6-14.6 [facility] Erythrocyte distribution wid th standard deviationOrdered By: Delma Bland on 06-08-2024 Erythrocyte distribution width (RBC) [Ratio] 44.3 fl High 35.1-43.9 [facility] Glomerular filtration rate ( GFR) estimation/1.73 sq m using serum, plasma, or whole bOrdered By: Delma Bland on 06-08-2024 GFR/1.73 sq M.predicted among non-blacks MDRD (S/P/Bld) [Vol rate/Area] 69 mL/min/{1.73_m2} >60 [facility] Comment on above: mL/min/1.73m2 CKD-EP I Creatinine Equation (2020) Hematocrit Auto (Bld) [Volum e fraction]Ordered By: Delma Bland on 06-08-2024 Hematocrit (Bld) [Volume fraction] 41.5 % 40-54 [facility] Hemoglobin A1con 06-08-2024 HbA1c (Bld) [Mass fraction] 5.7 % Normal <=5.6 [facility] Comment on above: Order Comment: Order Date: 05/09/24Order Info: [id number] - A1C Result Comment: Norm al < 5.7 % Prediabetic 5.7 - 6.4 % Diabetic >or= 6.5 % Please note range changes. Performed By: #### L 501.9910, L501.9520, L500.4100, L501.9985, L500.4050 ####[facility] [address] [place], [address] Hemoglobin A1c percentageOrd ered By: Delma Bland on 06-08-2024 HbA1c (Bld) [Mass fraction] 5.7 % <5.7 [facility] Comment on above: Normal < 5.7 % Predi abetic 5.7 - 6.4 % Diabetic >or= 6.5 % Please note range changes. Hemoglobin measurementOrdere d By: Delma Bland on 06-08-2024 Hemoglobin (Bld) [Mass/Vol] 13.6 g/dL 13.0-16.5 [facility] Immature granulocytes/100 WB C Auto (Bld)Ordered By: Delma Bland on 06-08-2024 Immature granulocytes/100 WBC (Bld) 0.300 % 0.0-0.9 [facility] Comment on above: IG% - Immature Granu locytes (promyelocytes, myelocytes and metamyelocytes) > 1% indicates that a LEFT SHIFT is Present. LDL calc ser/plasOrdered By: Delma Bland on 06-08-2024 Cholesterol in LDL [Mass/Vol] 52 mg/dL [facility] Comment on above: Vmwojbawxg=956-428 m g/dL & Higher Ynaa=779 mg/dL or greater Laboratory - Chemistry and C hemistry - challengeOrdered By: Delma Bland on 06-08-2024 AST [Catalytic activity/Vol] 24 U/L <38 [facility] Lipid Profileon 06-08-2024 CHOL:HDL 2.39 Normal [facility] Comment on above: Order Comment: Order Date: 05/09/24Order Info: [id number] - CMPOrder Info: [id number] - LIPIDOrder Info: 6-3 - TSHOrder Info: 1 - PSAOrder Info: 3023-08 T4F Performed By: #### L 501.9910, L501.9520, L500.4100, L501.9985, L500.4050 ####[facility] [address] [place], [address] Cholesterol [Mass/Vol] 115 mg/dL Normal <=200 [facility] Comment on above: Order Comment: Order Date: 05/09/24Order Info: 785- - CMPOrder Info: [id number] - LIPIDOrder Info: [id number] - TSHOrder Info: [id number] - PSAOrder Info: 3023-08 T4F Result Comment: Chol esterol level, Desirable <200 mg/dL Borderline high cholesterol 200-239 mg/dL High cholesterol >=240 mg/dL Recommendations of the NCEP Adult Treatment Panel for the following risk-cutoff thresholds for the [place] population. Performed By: #### L 501.9910, L501.9520, L500.4100, L501.9985, L500.4050 ####[facility] [address] [place], [address] Cholesterol in HDL [Mass/Vol] 48 mg/dL Normal [facility] Comment on above: Order Comment: Order Date: 05/09/24Order Info: 785-1 - CMPOrder Info: [id number] - LIPIDOrder Info: 3 - TSHOrder Info: [...] #### L 501.9910, L501.9520, L500.4100, L501.9985, L500.4050 ####[facility] [address] [place], [address] Cholesterol in LDL [Mass/Vol] 52 mg/dL Normal [facility] Comment on above: Order Comment: Order Date: 05/09/24Order Info: 86-1 - CMPOrder Info: [id number] - LIPIDOrder Info: [id number] - TSHOrder Info: [id number] - PSAOrder Info: 7 - T4F Result Comment: Bord fbuyog=246-243 mg/dL Higher Gmra=605 mg/dL or greater Performed By: #### L 501.9910, L501.9520, L500.4100, L501.9985, L500.4050 ####[facility] [address] [place], [address] Cholesterol in VLDL [Mass/Vol] 15 mg/dL Normal 5-40 [facility] Comment on above: Order Comment: Order Date: 05/09/24Order Info: [id number] - CMPOrder Info: [id number] - LIPIDOrder Info: 6-3 - TSHOrder Info: [id number] - PSAOrder Info: [id number] - T4F Performed By: #### L 501.9910, L501.9520, L500.4100, L501.9985, L500.4050 ####[facility] [address] [place], [address] Triglyceride [Mass/Vol] 73 mg/dL Normal [facility] Comment on above: Order Comment: Order Date: 05/09/24Order Info: [id number] - CMPOrder Info: [id number] - LIPIDOrder Info: [id number] - TSHOrder Info: [id number] - PSAOrder Info: [id number] - T4F Result Comment: The drugs N-Acetylcysteine and Metamizole may falsely depress this assay. Normal range: <150 mg/dL Borderline High: 150-199 mg/dL High: 200-499 mg/dL Very High: >500 mg/dL Performed By: #### L 501.9910, L501.9520, L500.4100, L501.9985, L500.4050 ####[facility] [address] [place], [address] MCV (mean corpuscular volume ) determinationOrdered By: Delma Bland on 06-08-2024 MCV (RBC) [Entitic vol] 99.3 fL High 80-94 [facility] Mean corpuscular hemoglobin (MCH) determinationOrdered By: Delma Bland on 06-08-2024 MCH (RBC) [Entitic mass] 32.5 pg High 27.0-32.0 [facility] Mean corpuscular hemoglobin concentration (MCHC) determinationOrdered By: Delma Bland on 06-08-2024 MCHC (RBC) [Mass/Vol] 32.8 g/dL 32-36 [facility] Mean platelet volume determi nationOrdered By: Delma Bland on 06-08-2024 Platelet mean volume (Bld) [Entitic vol] 11.2 fL 6.2-12.0 [facility] Monocyte percentageOrdered B y: Delma Bland on 06-08-2024 Monocytes/100 WBC (Bld) 7.6 % 0-10 [facility] Neutrophil percentageOrdered By: Delma Bland on 06-08-2024 Neutrophils/100 WBC (Bld) 43.5 % Low 47-70 [facility] Nucleated red blood cell per centageOrdered By: Delma Bland on 06-08-2024 Nucleated RBC/100 WBC (Bld) [Ratio] 0 % 0-5 [facility] PSA,Total - Annual Screenon 06-08-2024 PSA,TOT SCREEN 1.17 ng/mL Normal 0.02-4.00 [facility] Comment on above: Order Comment: Order Date: 05/09/24Order Info: [id number] - CMPOrder Info: [id number] - LIPIDOrder Info: [id number] - TSHOrder Info: [...] #### L 501.9910, L501.9520, L500.4100, L501.9985, L500.4050 ####[facility] [address] [place], [address] Platelet countOrdered By: Viviana Bland on 06-08-2024 Platelets (Bld) [#/Vol] 171 10*3/uL 150-450 [facility] Potassium measurement (mass/ volume)Ordered By: Delma Bland on 06-08-2024 Potassium (Unsp spec) [Mass/Vol] 4.4 mmol/L 3.3-5.1 [facility] RBC Auto (Bld) [#/Vol]Ordere d By: Delma Bland on 06-08-2024 RBC (Bld) [#/Vol] 4.18 10*6/uL Low 4.6-6.2 [facility] Screening total cholesterol/ high density lipoprotein (HDL) cholesterol ratioOrdered By: Delma Bland on 06-08-2024 Cholesterol.total/Choles terol in HDL [Mass ratio] 2.39 {ratio} [facility] Serum creatinine measurement (mass/volume)Ordered By: Delma Bland on 06-08-2024 Creatinine [Mass/Vol] 1.11 mg/dL 0.70-1.20 [facility] Serum globulin measurementOr dered By: Delma Bland on 06-08-2024 Globulin (S) [Mass/Vol] 2.9 g/dL 2.2-4.2 [facility] Serum glucose measurement (m ass/volume)Ordered By: Delma Bland on 06-08-2024 Glucose [Mass/Vol] 88 mg/dL 70-99 [facility] Serum or plasma alanine hunter otransferase (ALT) measurementOrdered By: Delma Bland on 06-08-2024 ALT [Catalytic activity/Vol] 14 U/L <47 [facility] Serum or plasma albumin linda urement (mass/volume)Ordered By: Delma Bland on 06-08-2024 Albumin [Mass/Vol] 4.2 g/dL 3.4-4.8 [facility] Serum or plasma albumin/glob ulin mass ratioOrdered By: Delma Bland on 06-08-2024 Albumin/Globulin [Mass ratio] 1.5 {ratio} 0.9-2.4 [facility] Serum or plasma alkaline cesar sphatase measurementOrdered By: Delma Bland on 06-08-2024 ALP [Catalytic activity/Vol] 64 U/L 40-129 [facility] Serum or plasma calcium linda urement (mass/volume)Ordered By: Delma Bland on 06-08-2024 Calcium [Mass/Vol] 9.2 mg/dL 7.6-11.0 [facility] Serum or plasma cholesterol in HDL measurement (mass/volume)Ordered By: Delma Bland on 06-08-2024 Cholesterol in HDL [Mass/Vol] 48 mg/dL >40 [facility] Comment on above: National Cholesterol Education Program (NCEP) guidelines:<40 mg/dL: Low HDL-cholesterol (major risk factor for CHD)>= 60 mg/dL: High HDL-cholesterol (negative risk factor for CHD)HDL-cholesterol is affected by a number of factors, e.g. smoking, exercise, hormones, sex and age. Serum or plasma cholesterol measurement (mass/volume)Ordered By: Delma Bland on 06-08-2024 Cholesterol [Mass/Vol] 115 mg/dL <201 [facility] Comment on above: Cholesterol level, D esirable <200 mg/dLBorderline high cholesterol 200-239 mg/dLHigh cholesterol >=240 mg/dLRecommendations of the NCEP Adult Treatment Panel for the following risk-cutoff thresholds for the [place] population. Serum or plasma urea nitroge n measurement (mass/volume)Ordered By: Delma Bland on 06-08-2024 Urea nitrogen [Mass/Vol] 14 mg/dL 4-19 [facility] Sodium levelOrdered By: Delma Bland 06-08-2024 Sodium [Moles/Vol] 138 mmol/L 133-145 [facility] T4 Free Directon 06-08-2024 T4 FREE DIRECT 1.60 ng/dL High 0.76-1.46 [facility] Comment on above: Order Comment: Order Date: 05/09/24Order Info: [id number] - CMPOrder Info: [id number] - LIPIDOrder Info: 6-3 - TSHOrder Info: [id number] - PSAOrder Info: 7 - T4F Performed By: #### L 100.0100, L506.0400 ####[facility] [address] [place], [place], [id number] T4 freeOrdered By: Delma ayala on 06-08-2024 Free T4 [Mass/Vol] 1.60 ng/dL High 0.76-1.46 [facility] TSH DL <= 0.005 mIU/L QnOrde red By: Delma Bland on 06-08-2024 TSH Qn 1.900 uIU/mL 0.300-4.200 [facility] Thyroid Stim Hormone (TSH)on 06-08-2024 TSH 1.900 uIU/mL Normal 0.300-4.200 [facility] Comment on above: Order Comment: Order Date: 05/09/24Order Info: [id number] - CMPOrder Info: [id number] - LIPIDOrder Info: [id number] - TSHOrder Info: [id number] - PSAOrder Info: 7 - T4F Performed By: #### L 501.9910, L501.9520, L500.4100, L501.9985, L500.4050 ####[facility] [address] [place], [address] Total proteinOrdered By: Vj Bland on 06-08-2024 Protein [Mass/Vol] 7.1 g/dL 5.9-8.4 [facility] Triglycerides measurementOrd ered By: Delma Bland on 06-08-2024 Triglyceride [Mass/Vol] 73 mg/dL <199 [facility] Comment on above: The drugs N-Acetylcy steine and Metamizole may falsely depress this assay. Normal range: <150 mg/dLBorderline High: 150-199 mg/dLHigh: 200-499 mg/dLVery High: >500 mg/dL White blood cell (WBC) count Ordered By: Delma Bland on 06-08-2024 WBC (Bld) [#/Vol] 7.3 10*3/uL 4.4-11.0 [facility] Re-Evalution OTon 05-18-2024 Re-Evalution OT [facility] Occup[facility] [address] [place] [address] / REEVALUATION / MEDICARE RECERTIFICATION OCCUPATIONAL THERAPY MR#: [id number] Acct: [id number] Name: SILVIA NICOLE II Rep #: [id number] : 1945 78 From: Keely Styles Referring [...] tolerated and transition to HEP. 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 Sincerely, Keely Styles 05/18/24 1117 CC: Dr. Delma Bland MD; Dr. Amadeo Longo, [place] Signed For Medicare only, by signing this I certify the plan of care. Physicians Signature Date Normal [facility] Ferritinon 05-06-2024 Ferritin [Mass/Vol] 210 ng/mL Normal 37-417 [facility] Comment on above: Order Comment: ROBERTO Juares ADD IBC FE B12 TO BLOOD DRAWN 05/04/24 PER Order Date: 01/12/24Order Info: [id number] - CMPOrder Info: [id number] - LIPIDOrder Info: [id number] - TSHOrder Info: [id number] - T4F Performed By: #### L 503.6030, L503.0106, L503.6550 ####[facility] [address] [place], [address] Iron+Iron Binding Capacityon 05-06-2024 Iron [Mass/Vol] 105 ug/dL Normal 65-175 [facility] Comment on above: Order Comment: ROBERTO Juares ADD IBC FE B12 TO BLOOD DRAWN 05/04/24 PER Order Date: 01/12/24Order Info: 86-1 - CMPOrder Info: [id number] - LIPIDOrder Info: 3 - TSHOrder Info: 7 - T4F Performed By: #### L 503.6030, L503.0106, L503.6550 ####[facility] [address] [place], [address] IRON SATURATION 39.0 Normal 9-55 [facility] Comment on above: Order Comment: ROBERTO Juares ADD IBC FE B12 TO BLOOD DRAWN 05/04/24 PER Order Date: 01/12/24Order Info: [id number] - CMPOrder Info: [id number] - LIPIDOrder Info: 3 - TSHOrder Info: 7 - T4F Performed By: #### L 503.6030, L503.0106, L503.6550 ####[facility] [address] [place], [address] TIBC 271 ug/dL Normal 250-450 [facility] Comment on above: Order Comment: ROBERTO Juares ADD IBC FE B12 TO BLOOD DRAWN 05/04/24 PER Order Date: 01/12/24Order Info: [id number] - CMPOrder Info: [id number] - LIPIDOrder Info: 3 - TSHOrder Info: 7 - T4F Performed By: #### L 503.6030, L503.0106, L503.6550 ####[facility] [address] [place], [address] UIBC 166 ug/dL Low 228-428 [facility] Comment on above: Order Comment: ROBERTO Juares ADD IBC FE B12 TO BLOOD DRAWN 05/04/24 PER Order Date: 01/12/24Order Info: [id number] - CMPOrder Info: [id number] - LIPIDOrder Info: 3 - TSHOrder Info: [id number] - T4F Performed By: #### L 503.6030, L503.0106, L503.6550 ####[facility] [address] [place], [address] L503.0106on 05-06-2024 Cobalamin (Vitamin B12) [Mass/Vol] 313 pg/mL Normal 180-914 [facility] Comment on above: Order Comment: ROBERTO Juares ADD [facility] FE B12 TO BLOOD DRAWN 05/04/24 PER Order Date: 01/12/24Order Info: [id number] - CMPOrder Info: [id number] - LIPIDOrder Info: 3 - TSHOrder Info: [id number] - T4F Performed By: #### L 503.6030, L503.0106, L503.6550 ####[facility] [address] [place], [place], [address] Absolute neutrophil countOrd ered By: Delma Bland on 05-04-2024 Neutrophils (Bld) [#/Vol] 3.4 10*3/uL 2.0-7.7 [facility] Anion gap in Serum or Plasma Ordered By: Delma Bland on 05-04-2024 Anion gap [Moles/Vol] 13 mmol/L 5- [facility] BUN/creatinine ratioOrdered By: Delma Bland on 05-04-2024 Urea nitrogen/Creatinine [Mass ratio] 14.9 mg/mg 10- [facility] Basophil percentageOrdered B y: Delma Bland on 05-04-2024 Basophils/100 WBC (Bld) 0.8 % 0-1 [facility] Bilirubin, totalOrdered By: Delma Bland on 05-04-2024 Bilirubin [Mass/Vol] 0.34 mg/dL 0.00-1.30 [facility] CBC W/Diff, Automatedon 04-22 Absolute Lymph 3.07 X10 3/uL Normal 0.83-4.51 [facility] Comment on above: Order Comment: Order Date: 01/12/24Order Info: [id number] - CBCD Performed By: #### L 500.4050, L500.4100, L506.0400, L100.0100, L501.9985, L501.9520 ####[facility] [address] [place], [address] Absolute Neut 3.4 X10 3/uL Normal 2.0-7.7 [facility] Comment on above: Order Comment: Order Date: 01/12/24Order Info: [id number] - CBCD Performed By: #### L 500.4050, L500.4100, L506.0400, L100.0100, L501.9985, L501.9520 ####[facility] [address] [place], [address] Basophils/100 WBC (Bld) 0.8 % Normal 0-1 [facility] Comment on above: Order Comment: Order Date: 01/12/24Order Info: [id number] - CBCD Performed By: #### L 500.4050, L500.4100, L506.0400, L100.0100, L501.9985, L501.9520 ####[facility] [address] [place], [address] Eosinophils/100 WBC (Bld) 1.0 % Normal 0-5 [facility] Comment on above: Order Comment: Order Date: 01/12/24Order Info: [id number] - CBCD Performed By: #### L 500.4050, L500.4100, L506.0400, L100.0100, L501.9985, L501.9520 ####[facility] [address] [place], [address] Erythrocyte distribution width (RBC) [Ratio] 12.1 % Normal 11.6-14.6 [facility] Comment on above: Order Comment: Order Date: 01/12/24Order Info: [id number] - CBCD Performed By: #### L 500.4050, L500.4100, L506.0400, L100.0100, L501.9985, L501.9520 ####[facility] [address] [place], [address] Hematocrit (Bld) [Volume fraction] 38.8 % Low 40-54 [facility] Comment on above: Order Comment: Order Date: 01/12/24Order Info: [id number] - CBCD Performed By: #### L 500.4050, L500.4100, L506.0400, L100.0100, L501.9985, L501.9520 ####[facility] [address] [place], [address] Hemoglobin (Bld) [Mass/Vol] 12.9 g/dL Low 13.0-16.5 [facility] Comment on above: Order Comment: Order Date: 01/12/24Order Info: 018- - CBCD Performed By: #### L 500.4050, L500.4100, L506.0400, L100.0100, L501.9985, L501.9520 ####[facility] [address] [place], [address] IG% 0.100 Normal 0.0-0.9 [facility] Comment on above: Order Comment: Order Date: 01/12/24Order Info: [id number]- - CBCD Result Comment: IG% - Immature Granulocytes (promyelocytes, myelocytes and metamyelocytes) > 1% indicates that a LEFT SHIFT is Present. Performed By: #### L 500.4050, L500.4100, L506.0400, L100.0100, L501.9985, L501.9520 ####[facility] [address] [place], [address] Lymphocytes/100 WBC (Bld) 42.9 % High 19-41 [facility] Comment on above: Order Comment: Order Date: 01/12/24Order Info: [id number] - CBCD Performed By: #### L 500.4050, L500.4100, L506.0400, L100.0100, L501.9985, L501.9520 ####[facility] [address] [place], [address] MCH (RBC) [Entitic mass] 32.3 pg High 27.0-32.0 [facility] Comment on above: Order Comment: Order Date: 01/12/24Order Info: [id number] - CBCD Performed By: #### L 500.4050, L500.4100, L506.0400, L100.0100, L501.9985, L501.9520 ####[facility] [address] [place] [place], [address] MCHC (RBC) [Mass/Vol] 33.2 g/dL Normal 32-36 [facility] Comment on above: Order Comment: Order Date: 01/12/24Order Info: 018- - CBCD Performed By: #### L 500.4050, L500.4100, L506.0400, L100.0100, L501.9985, L501.9520 ####[facility] [address], [address] MCV (RBC) [Entitic vol] 97.2 fL High 80-94 [facility] Comment on above: Order Comment: Order Date: 01/12/24Order Info: [id number] - CBCD Performed By: #### L 500.4050, L500.4100, L506.0400, L100.0100, L501.9985, L501.9520 ####[facility] [address] [place], [address] Monocytes/100 WBC (Bld) 7.3 % Normal 0-10 [facility] Comment on above: Order Comment: Order Date: 01/12/24Order Info: [id number] - CBCD Performed By: #### L 500.4050, L500.4100, L506.0400, L100.0100, L501.9985, L501.9520 ####[facility] [address] [place], [address] Neutrophils/100 WBC (Bld) 47.9 % Normal 47-70 [facility] Comment on above: Order Comment: Order Date: 01/12/24Order Info: [id number] - CBCD Performed By: #### L 500.4050, L500.4100, L506.0400, L100.0100, L501.9985, L501.9520 ####[facility] [address] [place], [address] Nucleated RBC (Bld) [#/Vol] 0 10*3/uL Normal 0-5 [facility] Comment on above: Order Comment: Order Date: 01/12/24Order Info: 018- - CBCD Performed By: #### L 500.4050, L500.4100, L506.0400, L100.0100, L501.9985, L501.9520 ####[facility] [address] [place], [address] Platelet mean volume (Bld) [Entitic vol] 11.0 fL Normal 6.2-12.0 [facility] Comment on above: Order Comment: Order Date: 01/12/24Order Info: 018-1 - CBCD Performed By: #### L 500.4050, L500.4100, L506.0400, L100.0100, L501.9985, L501.9520 ####[facility] [address] [place], [address] Platelets (Bld) [#/Vol] 179 10*3/uL Normal 150-450 [facility] Comment on above: Order Comment: Order Date: 01/12/24Order Info: 018-1 - CBCD Performed By: #### L 500.4050, L500.4100, L506.0400, L100.0100, L501.9985, L501.9520 ####[facility] [address] [place], [address] RBC (Bld) [#/Vol] 3.99 10*6/uL Low 4.6-6.2 [facility] Comment on above: Order Comment: Order Date: 01/12/24Order Info: 018-1 - CBCD Performed By: #### L 500.4050, L500.4100, L506.0400, L100.0100, L501.9985, L501.9520 ####[facility] [address] [place], [address] RDW SD 44.0 fl High 35.1-43.9 [facility] Comment on above: Order Comment: Order Date: 01/12/24Order Info: 018- - CBCD Performed By: #### L 500.4050, L500.4100, L506.0400, L100.0100, L501.9985, L501.9520 ####[facility] [address] [place], [address] WBC (Bld) [#/Vol] 7.2 10*3/uL Normal 4.4-11.0 [facility] Comment on above: Order Comment: Order Date: 01/12/24Order Info: 018- - CBCD Performed By: #### L 500.4050, L500.4100, L506.0400, L100.0100, L501.9985, L501.9520 ####[facility] [address] [place], [place], [address] Calculated total iron bindin g capacityOrdered By: Delma Bland on 05-04-2024 Total Iron Binding Capacity 271 ug/dL 250-450 [facility] Calculated very low density lipoprotein (VLDL) cholesterol measurementOrdered By: Delma Bland on 05-04-2024 VLDL Cholesterol 11 mg/dL 5-40 [facility] Carbon dioxide, total [Moles /volume] in Central venous bloodOrdered By: Delma Bland on 05-04-2024 CO2 [Moles/Vol] 21.0 mmol/L 21.0-32.0 [facility] Chloride assayOrdered By: Viivana Bland on 05-04-2024 Chloride [Moles/Vol] 103 mmol/L 98-108 [facility] Comprehensive Metabolic Prof ilon 05-04-2024 Albumin [Mass/Vol] 4.3 g/dL Normal 3.4-4.8 [facility] Comment on above: Order Comment: Order Date: 01/12/24Order Info: 785- - CMPOrder Info: [id number] - LIPIDOrder Info: [id number] - TSHOrder Info: [id number] - T4F Performed By: #### L 500.4050, L500.4100, L506.0400, L100.0100, L501.9985, L501.9520 ####[facility] [address] [place], [place], [address] Albumin/Globulin [Mass ratio] 1.6 {ratio} Normal 0.9-2.4 [facility] Comment on above: Order Comment: Order Date: 01/12/24Order Info: [id number] - CMPOrder Info: [id number] - LIPIDOrder Info: [id number] - TSHOrder Info: [id number] - T4F Performed By: #### L 500.4050, L500.4100, L506.0400, L100.0100, L501.9985, L501.9520 ####[facility] [address] [place], [place], [address] ALK PHOS 71 U/L Normal 40-129 [facility] Comment on above: Order Comment: Order Date: 01/12/24Order Info: 785- - CMPOrder Info: [id number] - LIPIDOrder Info: [id number] - TSHOrder Info: 3027 - T4F Performed By: #### L 500.4050, L500.4100, L506.0400, L100.0100, L501.9985, L501.9520 ####[facility] [address] [place], [address] ALT [Catalytic activity/Vol] 14 U/L Normal <=46 [facility] Comment on above: Order Comment: Order Date: 01/12/24Order Info: [id number] - CMPOrder Info: [id number] - LIPIDOrder Info: [id number] - TSHOrder Info: [id number] - T4F Performed By: #### L 500.4050, L500.4100, L506.0400, L100.0100, L501.9985, L501.9520 ####[facility] [address] [place], [address] AST [Catalytic activity/Vol] 25 U/L Normal <=37 [facility] Comment on above: Order Comment: Order Date: 01/12/24Order Info: 07-1 - CMPOrder Info: [id number] - LIPIDOrder Info: [id number] - TSHOrder Info: [id number] - T4F Performed By: #### L 500.4050, L500.4100, L506.0400, L100.0100, L501.9985, L501.9520 ####[facility] [address] [place], [address] Bilirubin [Mass/Vol] 0.34 mg/dL Normal 0.00-1.30 [facility] Comment on above: Order Comment: Order Date: 01/12/24Order Info: [id number] - CMPOrder Info: [id number] - LIPIDOrder Info: [id number] - TSHOrder Info: [id number] - T4F Performed By: #### L 500.4050, L500.4100, L506.0400, L100.0100, L501.9985, L501.9520 ####[facility] [address] [place], [address] BUN/CRE 14.9 RATIO Normal 10-20 [facility] Comment on above: Order Comment: Order Date: 01/12/24Order Info: 86-1 - CMPOrder Info: [id number] - LIPIDOrder Info: 3 - TSHOrder Info: [id number] - T4F Performed By: #### L 500.4050, L500.4100, L506.0400, L100.0100, L501.9985, L501.9520 ####[facility] [address] [place], [address] Calcium [Mass/Vol] 9.4 mg/dL Normal 7.6-11.0 [facility] Comment on above: Order Comment: Order Date: 01/12/24Order Info: 785- - CMPOrder Info: - LIPIDOrder Info: [id number] - TSHOrder Info: 7 - T4F Performed By: #### L 500.4050, L500.4100, L506.0400, L100.0100, L501.9985, L501.9520 ####[facility] [address] [place], [address] Chloride [Moles/Vol] 103 mmol/L Normal 98-108 [facility] Comment on above: Order Comment: Order Date: 01/12/24Order Info: [id number] - CMPOrder Info: - LIPIDOrder Info: [id number] - TSHOrder Info: [id number] - T4F Performed By: #### L 500.4050, L500.4100, L506.0400, L100.0100, L501.9985, L501.9520 ####[facility] [address] [place], [address] CO2 [Moles/Vol] 21.0 mmol/L Normal 21.0-32.0 [facility] Comment on above: Order Comment: Order Date: 01/12/24Order Info: 86-1 - CMPOrder Info: [id number] - LIPIDOrder Info: 3 - TSHOrder Info: [id number] - T4F Performed By: #### L 500.4050, L500.4100, L506.0400, L100.0100, L501.9985, L501.9520 ####[facility] [address] [place], [place], [id number] Creatinine [Mass/Vol] 1.21 mg/dL High 0.70-1.20 [facility] Comment on above: Order Comment: Order Date: 01/12/24Order Info: 86-1 - CMPOrder Info: [id number] - LIPIDOrder Info: 3 - TSHOrder Info: 7 - T4F Performed By: #### L 500.4050, L500.4100, L506.0400, L100.0100, L501.9985, L501.9520 ####[facility] [address] [place], [place], [id number] GAP 13 Normal 5-15 [facility] Comment on above: Order Comment: Order Date: 01/12/24Order Info: [id number] - CMPOrder Info: [id number] - LIPIDOrder Info: 3 - TSHOrder Info: 7 - T4F Performed By: #### L 500.4050, L500.4100, L506.0400, L100.0100, L501.9985, L501.9520 ####[facility] [address] [place], [place], [id number] GFR/1.73 sq M.predicted among non-blacks MDRD (S/P/Bld) [Vol rate/Area] 62 mL/min/{1.73_m2} Normal >60 [facility] Comment on above: Order Comment: Order Date: 01/12/24Order Info: [id number] - CMPOrder Info: [id number] - LIPIDOrder Info: 3 - TSHOrder Info: [id number] - T4F Result Comment: mL/m in/1.73m2 CKD-EPI Creatinine Equation (2020) Performed By: #### L 500.4050, L500.4100, L506.0400, L100.0100, L501.9985, L501.9520 ####[facility] [address] [place], [address] Globulin (S) [Mass/Vol] 2.7 g/dL Normal 2.2-4.2 [facility] Comment on above: Order Comment: Order Date: 01/12/24Order Info: [id number] - CMPOrder Info: [id number] - LIPIDOrder Info: [id number] - TSHOrder Info: [id number] - T4F Performed By: #### L 500.4050, L500.4100, L506.0400, L100.0100, L501.9985, L501.9520 ####[facility] [address] [place], [address] Glucose [Mass/Vol] 121 mg/dL High 70-99 [facility] Comment on above: Order Comment: Order Date: 01/12/24Order Info: [id number]- - CMPOrder Info: [id number] - LIPIDOrder Info: 63 - TSHOrder Info: [id number] - T4F Performed By: #### L 500.4050, L500.4100, L506.0400, L100.0100, L501.9985, L501.9520 ####[facility] [address] [place], [address] Potassium [Moles/Vol] 4.5 mmol/L Normal 3.3-5.1 [facility] Comment on above: Order Comment: Order Date: 01/12/24Order Info: 07-1 - CMPOrder Info: [id number] - LIPIDOrder Info: [id number] - TSHOrder Info: [id number] - T4F Performed By: #### L 500.4050, L500.4100, L506.0400, L100.0100, L501.9985, L501.9520 ####[facility] [address] [place], [address] Sodium [Moles/Vol] 136 mmol/L Normal 133-145 [facility] Comment on above: Order Comment: Order Date: 01/12/24Order Info: [id number] - CMPOrder Info: [id number] - LIPIDOrder Info: 3 - TSHOrder Info: 7 - T4F Performed By: #### L 500.4050, L500.4100, L506.0400, L100.0100, L501.9985, L501.9520 ####[facility] [address] [place], [address] T PROT 7.0 g/dL Normal 5.9-8.4 [facility] Comment on above: Order Comment: Order Date: 01/12/24Order Info: [id number] - CMPOrder Info: [id number] - LIPIDOrder Info: 3 - TSHOrder Info: 7 - T4F Performed By: #### L 500.4050, L500.4100, L506.0400, L100.0100, L501.9985, L501.9520 ####[facility] [address] [place], [place], [address] Urea nitrogen [Mass/Vol] 18 mg/dL Normal 4-19 [facility] Comment on above: Order Comment: Order Date: 01/12/24Order Info: [id number] - CMPOrder Info: [id number] - LIPIDOrder Info: 3 - TSHOrder Info: [id number] - T4F Performed By: #### L 500.4050, L500.4100, L506.0400, L100.0100, L501.9985, L501.9520 ####[facility] [address] [place], [place], [address] Eosinophil percentageOrdered By: Delma Bland on 05-04-2024 Eosinophils/100 WBC (Bld) 1.0 % 0-5 [facility] Erythrocyte distribution wid th ratioOrdered By: Delma Bland on 05-04-2024 Erythrocyte distribution width (RBC) [Ratio] 12.1 % 11.6-14.6 [facility] Erythrocyte distribution wid th standard deviationOrdered By: Delma Bland on 05-04-2024 Erythrocyte distribution width (RBC) [Entitic vol] 44.0 fL High 35.1-43.9 [facility] GFR/1.73 sq M.predicted [place] g non-blacks MDRD (S/P/Bld) [Vol rate/Area]Ordered By: Delma Bland on 05-04-2024 Estimated GFR (MDRD) Non-Af Amer 62 >60 [facility] Comment on above: mL/min/1.73m2 CKD-EP I Creatinine Equation (2020) Hematocrit Auto (Bld) [Volum e fraction]Ordered By: Delma Bland on 05-04-2024 Hematocrit (Bld) [Volume fraction] 38.8 % Low 40-54 [facility] Hemoglobin A1con 05-04-2024 HbA1c (Bld) [Mass fraction] 5.9 % Normal <=5.6 [facility] Comment on above: Order Comment: Order Date: 01/12/24Order Info: [id number] - A1C Performed By: #### L 500.4050, L500.4100, L506.0400, L100.0100, L501.9985, L501.9520 ####[facility] [address] [place] [place], [address] Hemoglobin A1c percentageOrd ered By: Delma Bland on 05-04-2024 HbA1c (Bld) [Mass fraction] 5.9 % >5.7 [facility] Hemoglobin measurementOrdere d By: Delma Bland on 05-04-2024 Hemoglobin (Bld) [Mass/Vol] 12.9 g/dL Low 13.0-16.5 [facility] Immature granulocytes/100 WB C Auto (Bld)Ordered By: Delma Bland on 05-04-2024 Immature granulocytes/100 WBC (Bld) 0.100 % 0.0-0.9 [facility] Comment on above: IG% - Immature Granu locytes (promyelocytes, myelocytes and metamyelocytes) > 1% indicates that a LEFT SHIFT is Present. Iron (Unsp spec) [Mass/Mass] Ordered By: Delma Bland on 05-04-2024 Iron [Mass/Vol] 105 ug/dL 65-175 [facility] Iron saturation [Mass fracti on]Ordered By: Delma Bland on 05-04-2024 Iron Saturation 39.0 % 9-55 [facility] LDL calc ser/plasOrdered By: Delma Bland on 05-04-2024 LDL Cholesterol, Calculated 69 mg/dL [facility] Comment on above: Dzvrwizjbd=456-941 m g/dL & Higher Dtzl=614 mg/dL or greater Laboratory - Chemistry and C hemistry - challengeOrdered By: Delma Bland on 05-04-2024 AST [Catalytic activity/Vol] 25 U/L <38 [facility] Lipid Profileon 05-04-2024 CHOL:HDL 2.48 Normal [facility] Comment on above: Order Comment: Order Date: 01/12/24Order Info: [id number] - CMPOrder Info: [id number] - LIPIDOrder Info: [id number] - TSHOrder Info: [id number] - T4F Performed By: #### L 500.4050, L500.4100, L506.0400, L100.0100, L501.9985, L501.9520 ####[facility] [address] [place], [address] Cholesterol [Mass/Vol] 135 mg/dL Normal <=200 [facility] Comment on above: Order Comment: Order Date: 01/12/24Order Info: [id number] - CMPOrder Info: [id number] - LIPIDOrder Info: [id number] - TSHOrder Info: [id number] - T4F Result Comment: Chol esterol level, Desirable <200 mg/dL Borderline high cholesterol 200-239 mg/dL High cholesterol >=240 mg/dL Recommendations of the NCEP Adult Treatment Panel for the following risk-cutoff thresholds for the [place] population. Performed By: #### L 500.4050, L500.4100, L506.0400, L100.0100, L501.9985, L501.9520 ####[facility] [address] [place], [address] Cholesterol in HDL [Mass/Vol] 55 mg/dL Normal [facility] Comment on above: Order Comment: Order Date: 01/12/24Order Info: [id number]- - CMPOrder Info: [id number] - LIPIDOrder Info: [id number] - TSHOrder Info: [id number] - T4F Result Comment: [place] onal Cholesterol Education Program (NCEP) guidelines: <40 mg/dL: Low HDL-cholesterol (major risk factor for CHD) >= 60 mg/dL: High HDL-cholesterol (negative risk factor for CHD) HDL-cholesterol is affected by a number of factors, e.g. smoking, exercise, hormones, sex and age. Performed By: #### L 500.4050, L500.4100, L506.0400, L100.0100, L501.9985, L501.9520 ####[facility] [address] [place], [address] Cholesterol in LDL [Mass/Vol] 69 mg/dL Normal [facility] Comment on above: Order Comment: Order Date: 01/12/24Order Info: [id number] - CMPOrder Info: - LIPIDOrder Info: [id number] - TSHOrder Info: [id number] - T4F Result Comment: Bord micmyi=508-888 mg/dL Higher Qmwb=411 mg/dL or greater Performed By: #### L 500.4050, L500.4100, L506.0400, L100.0100, L501.9985, L501.9520 ####[facility] [address] [place], [address] Cholesterol in VLDL [Mass/Vol] 11 mg/dL Normal 5-40 [facility] Comment on above: Order Comment: Order Date: 01/12/24Order Info: 07 - CMPOrder Info: [id number] - LIPIDOrder Info: [id number] - TSHOrder Info: 7 - T4F Performed By: #### L 500.4050, L500.4100, L506.0400, L100.0100, L501.9985, L501.9520 ####[facility] [address] [place], [address] Triglyceride [Mass/Vol] 57 mg/dL Normal [facility] Comment on above: Order Comment: Order Date: 01/12/24Order Info: [id number] - CMPOrder Info: [id number] - LIPIDOrder Info: [id number] - TSHOrder Info: [id number] - T4F Result Comment: The drugs N-Acetylcysteine and Metamizole may falsely depress this assay. Normal range: <150 mg/dL Borderline High: 150-199 mg/dL High: 200-499 mg/dL Very High: >500 mg/dL Performed By: #### L 500.4050, L500.4100, L506.0400, L100.0100, L501.9985, L501.9520 ####[facility] [address] [place], [place], [address] Lymphocytes Auto (Unsp spec) [#/Vol]Ordered By: Delma Bland on 05-04-2024 Lymphocytes (Bld) [#/Vol] 3.07 10*3/uL 0.83-4.51 [facility] Lymphocytes/100 WBC Auto (Un sp spec)Ordered By: Delma Bland on 05-04-2024 Lymphocytes/100 WBC (Bld) 42.9 % High 19-41 [facility] MCV (mean corpuscular volume ) determinationOrdered By: Delma Bland on 05-04-2024 MCV (RBC) [Entitic vol] 97.2 fL High 80-94 [facility] Mean corpuscular hemoglobin (MCH) determinationOrdered By: Delma Bland on 05-04-2024 MCH (RBC) [Entitic mass] 32.3 pg High 27.0-32.0 [facility] Mean corpuscular hemoglobin concentration (MCHC) determinationOrdered By: Delma Bland on 05-04-2024 MCHC (RBC) [Mass/Vol] 33.2 g/dL 32-36 [facility] Mean platelet volume determi nationOrdered By: Delma Bland on 05-04-2024 Platelet mean volume (Bld) [Entitic vol] 11.0 fL 6.2-12.0 [facility] Monocyte percentageOrdered B y: Delma Bland on 05-04-2024 Monocytes/100 WBC (Bld) 7.3 % 0-10 [facility] Neutrophil percentageOrdered By: Delma Bland on 05-04-2024 Neutrophils/100 WBC (Bld) 47.9 % 47-70 [facility] No Panel InformationOrdered By: Delma Bland on 05-04-2024 Unsaturated Iron Binding Capacity 166 ug/dL Low 228-428 [facility] Nucleated red blood cell per centageOrdered By: Delma Bland on 05-04-2024 Nucleated RBC/100 WBC (Bld) [Ratio] 0 % 0-5 [facility] Platelet countOrdered By: Viviana Bland on 05-04-2024 Platelets (Bld) [#/Vol] 179 10*3/uL 150-450 [facility] Potassium (Unsp spec) [Mass/ Vol]Ordered By: Delma Bland on 05-04-2024 Potassium [Moles/Vol] 4.5 mmol/L 3.3-5.1 [facility] RBC Auto (Bld) [#/Vol]Ordere d By: Delma Bland on 05-04-2024 RBC (Bld) [#/Vol] 3.99 10*6/uL Low 4.6-6.2 [facility] Screening total cholesterol/ high density lipoprotein (HDL) cholesterol ratioOrdered By: Delma Bland on 05-04-2024 Cholesterol.total/Choles terol in HDL [Mass ratio] 2.48 {ratio} [facility] Serum creatinine measurement (mass/volume)Ordered By: Delma Bland on 05-04-2024 Creatinine [Mass/Vol] 1.21 mg/dL High 0.70-1.20 [facility] Serum globulin measurementOr dered By: Delma Bland on 05-04-2024 Globulin (S) [Mass/Vol] 2.7 g/dL 2.2-4.2 [facility] Serum glucose measurement (m ass/volume)Ordered By: Delma Bland on 05-04-2024 Glucose [Mass/Vol] 121 mg/dL High 70-99 [facility] Serum or plasma alanine hunter otransferase (ALT) measurementOrdered By: Delma Bland on 05-04-2024 ALT [Catalytic activity/Vol] 14 U/L <47 [facility] Serum or plasma albumin linda urement (mass/volume)Ordered By: Delma Bland on 05-04-2024 Albumin [Mass/Vol] 4.3 g/dL 3.4-4.8 [facility] Serum or plasma albumin/glob ulin mass ratioOrdered By: Delma Bland on 05-04-2024 Albumin/Globulin [Mass ratio] 1.6 {ratio} 0.9-2.4 [facility] Serum or plasma alkaline cesar sphatase measurementOrdered By: Delma Bland on 05-04-2024 ALP [Catalytic activity/Vol] 71 U/L 40-129 [facility] Serum or plasma calcium linda urement (mass/volume)Ordered By: Delma Bland on 05-04-2024 Calcium [Mass/Vol] 9.4 mg/dL 7.6-11.0 [facility] Serum or plasma cholesterol in HDL measurement (mass/volume)Ordered By: Delma Bland on 05-04-2024 Cholesterol in HDL [Mass/Vol] 55 mg/dL >40 [facility] Comment on above: National Cholesterol Education Program (NCEP) guidelines:<40 mg/dL: Low HDL-cholesterol (major risk factor for CHD)>= 60 mg/dL: High HDL-cholesterol (negative risk factor for CHD)HDL-cholesterol is affected by a number of factors, e.g. smoking, exercise, hormones, sex and age. Serum or plasma cholesterol measurement (mass/volume)Ordered By: Delma Bland on 05-04-2024 Cholesterol [Mass/Vol] 135 mg/dL <201 [facility] Comment on above: Cholesterol level, D esirable <200 mg/dLBorderline high cholesterol 200-239 mg/dLHigh cholesterol >=240 mg/dLRecommendations of the NCEP Adult Treatment Panel for the following risk-cutoff thresholds for the [place] population. Serum or plasma ferritin noel surement (mass/volume)Ordered By: Delma Bland on 05-04-2024 Ferritin [Mass/Vol] 210 ng/mL 37-417 [facility] Serum or plasma urea nitroge n measurement (mass/volume)Ordered By: Delma Bland on 05-04-2024 Urea nitrogen [Mass/Vol] 18 mg/dL 4-19 [facility] Sodium levelOrdered By: Delma Bland on 05-04-2024 Sodium [Moles/Vol] 136 mmol/L 133-145 [facility] T4 Free Directon 05-04-2024 T4 FREE DIRECT 1.60 ng/dL High 0.76-1.46 [facility] Comment on above: Order Comment: Order Date: 01/12/24Order Info: [id number] - CMPOrder Info: [id number] - LIPIDOrder Info: 3 - TSHOrder Info: 7 - T4F Performed By: #### L 500.4050, L500.4100, L506.0400, L100.0100, L501.9985, L501.9520 ####[facility] [address] [facility] [address] [place], [place], [id number] T4 freeOrdered By: Delma ayala on 05-04-2024 Free T4 [Mass/Vol] 1.60 ng/dL High 0.76-1.46 [facility] TSH DL <= 0.005 mIU/L QnOrde red By: Delma Bland on 05-04-2024 Thyroid Stimulating Hormone (TSH) 2.360 uIU/mL 0.300-4.200 [facility] Thyroid Stim Hormone (TSH)on 05-04-2024 TSH 2.360 uIU/mL Normal 0.300-4.200 [facility] Comment on above: Order Comment: Order Date: 01/12/24Order Info: [id number]- - CMPOrder Info: [id number] - LIPIDOrder Info: 63 - TSHOrder Info: [id number] - T4F Performed By: #### L 500.4050, L500.4100, L506.0400, L100.0100, L501.9985, L501.9520 ####[facility] [address] [place], [place], [id number] Total proteinOrdered By: Vj Bland on 05-04-2024 Protein [Mass/Vol] 7.0 g/dL 5.9-8.4 [facility] Triglycerides measurementOrd ered By: Delma Bland on 05-04-2024 Triglyceride [Mass/Vol] 57 mg/dL <199 [facility] Comment on above: The drugs N-Acetylcy steine and Metamizole may falsely depress this assay. Normal range: <150 mg/dLBorderline High: 150-199 mg/dLHigh: 200-499 mg/dLVery High: >500 mg/dL Vitamin B12 ser/plasOrdered By: Delma Bland on 05-04-2024 Cobalamin (Vitamin B12) [Mass/Vol] 313 pg/mL 180-914 [facility] White blood cell (WBC) count Ordered By: Delma Bland on 05-04-2024 WBC (Bld) [#/Vol] 7.2 10*3/uL 4.4-11.0 [facility] OT General Evaluationon 03-25 OT General Evaluation [facility] [place] [address] / REHABILITATION SERVICES INITIAL EVALUATION MR#: [id number] Acct: [id number] Name: SILVIA NICOLE II Rep #: [id number] : 1945 78 From: Keely Styles Referring [...] [address] 35 UD 35 Strength Baggage Screener: R 65# L 90# Lateral Pinch: R 13# L 13# Tripod Pinch: R 12# L 12# Edema Wrist: R 17 cm L 16.5 cm Sensation Sensation Comments: denies numbness and tingling states a small bit in IF Quick DASH-Disab of Arm,Shoulder Hand Quick DASH Score: 54.5450 Goals Goal:ROM equal to unaffected hand: Yes Goal:Baggage Screener/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 at least 75% of unaffected hand: [...] to be FAXED BACK to us at [phone] for Medicare purposes. Please let me know if there are questions or concerns regarding this plan of care. Physician Signature: D ate: 04/04/24 1325 CC: Dr. Delma Bland MD; Dr. Amadeo Longo, [place] Signed For Medicare only, by signing this I certify the plan of care. Physicians Signature Date Normal [facility] CBC W/Diff, Automatedon 11 Absolute Lymph 3.18 X10 3/uL Normal 0.83-4.51 [facility] Comment on above: Order Comment: Order Date: 09/16/23 Order Info: [id number] - CBCD Performed By: #### L 506.0400, L500.4050, L100.0100, L501.9985, L501.9520, L500.4100 #### [facility] [address] [place], [address] Absolute Neut 2.5 X10 3/uL Normal 2.0-7.7 [facility] Comment on above: Order Comment: Order Date: 09/16/23 Order Info: [id number] - CBCD Performed By: #### L 506.0400, L500.4050, L100.0100, L501.9985, L501.9520, L500.4100 #### [facility] [address] [place], [address] Basophils/100 WBC (Bld) 0.8 % Normal 0-1 [facility] Comment on above: Order Comment: Order Date: 09/16/23 Order Info: [id number] - CBCD Performed By: #### L 506.0400, L500.4050, L100.0100, L501.9985, L501.9520, L500.4100 #### [facility] [address] [place], [address] Eosinophils/100 WBC (Bld) 2.0 % Normal 0-5 [facility] Comment on above: Order Comment: Order Date: 09/16/23 Order Info: 0184-1 - CBCD Performed By: #### L 506.0400, L500.4050, L100.0100, L501.9985, L501.9520, L500.4100 #### [facility] [address] [place], [address] Erythrocyte distribution width (RBC) [Ratio] 12.2 % Normal 11.6-14.6 [facility] Comment on above: Order Comment: Order Date: 09/16/23 Order Info: 0184- - CBCD Performed By: #### L 506.0400, L500.4050, L100.0100, L501.9985, L501.9520, L500.4100 #### [facility] [address] [place], [address] Hematocrit (Bld) [Volume fraction] 41.8 % Normal 40-54 [facility] Comment on above: Order Comment: Order Date: 09/16/23 Order Info: 0184- - CBCD Performed By: #### L 506.0400, L500.4050, L100.0100, L501.9985, L501.9520, L500.4100 #### [facility] [address] [place], [address] Hemoglobin (Bld) [Mass/Vol] 13.2 g/dL Normal 13.0-16.5 [facility] Comment on above: Order Comment: Order Date: 09/16/23 Order Info: 0184-1 - CBCD Performed By: #### L 506.0400, L500.4050, L100.0100, L501.9985, L501.9520, L500.4100 #### [facility] [address] [place], [address] IG% 0.200 Normal 0.0-0.9 [facility] Comment on above: Order Comment: Order Date: 09/16/23 Order Info: [id number] - CBCD Result Comment: IG% - Immature Granulocytes (promyelocytes, myelocytes and metamyelocytes) > 1% indicates that a LEFT SHIFT is Present. Performed By: #### L 506.0400, L500.4050, L100.0100, L501.9985, L501.9520, L500.4100 #### [facility] [address] [facility] [place], [address] Lymphocytes/100 WBC (Bld) 48.8 % High 19-41 [facility] Comment on above: Order Comment: Order Date: 09/16/23 Order Info: 0184-1 - CBCD Performed By: #### L 506.0400, L500.4050, L100.0100, L501.9985, L501.9520, L500.4100 #### [facility] [address] [facility] [place], [address] MCH (RBC) [Entitic mass] 32.2 pg High 27.0-32.0 [facility] Comment on above: Order Comment: Order Date: 09/16/23 Order Info: [id number] - CBCD Performed By: #### L 506.0400, L500.4050, L100.0100, L501.9985, L501.9520, L500.4100 #### [facility] [address] [place], [address] MCHC (RBC) [Mass/Vol] 31.6 g/dL Low 32-36 [facility] Comment on above: Order Comment: Order Date: 09/16/23 Order Info: 0184-1 - CBCD Performed By: #### L 506.0400, L500.4050, L100.0100, L501.9985, L501.9520, L500.4100 #### [facility] [address] [place], [address] MCV (RBC) [Entitic vol] 102.0 fL High 80-94 [facility] Comment on above: Order Comment: Order Date: 09/16/23 Order Info: 0184-1 - CBCD Performed By: #### L 506.0400, L500.4050, L100.0100, L501.9985, L501.9520, L500.4100 #### [facility] [address] [place], [address] Monocytes/100 WBC (Bld) 9.4 % Normal 0-10 [facility] Comment on above: Order Comment: Order Date: 09/16/23 Order Info: 0184-1 - CBCD Performed By: #### L 506.0400, L500.4050, L100.0100, L501.9985, L501.9520, L500.4100 #### [facility] [address] [place], [address] Neutrophils/100 WBC (Bld) 38.8 % Low 47-70 [facility] Comment on above: Order Comment: Order Date: 09/16/23 Order Info: 0184-1 - CBCD Performed By: #### L 506.0400, L500.4050, L100.0100, L501.9985, L501.9520, L500.4100 #### [facility] [address] [place], [address] Nucleated RBC (Bld) [#/Vol] 0 10*3/uL Normal 0-5 [facility] Comment on above: Order Comment: Order Date: 09/16/23 Order Info: 0184-1 - CBCD Performed By: #### L 506.0400, L500.4050, L100.0100, L501.9985, L501.9520, L500.4100 #### [facility] [address] [place], [address] Platelet mean volume (Bld) [Entitic vol] 11.4 fL Normal 6.2-12.0 [facility] Comment on above: Order Comment: Order Date: 09/16/23 Order Info: 0184-1 - CBCD Performed By: #### L 506.0400, L500.4050, L100.0100, L501.9985, L501.9520, L500.4100 #### [facility] [address] [place], [address] Platelets (Bld) [#/Vol] 132 10*3/uL Low 150-450 [facility] Comment on above: Order Comment: Order Date: 09/16/23 Order Info: 0184-1 - CBCD Performed By: #### L 506.0400, L500.4050, L100.0100, L501.9985, L501.9520, L500.4100 #### [facility] [address] [place], [address] RBC (Bld) [#/Vol] 4.10 10*6/uL Low 4.6-6.2 [facility] Comment on above: Order Comment: Order Date: 09/16/23 Order Info: 0184-1 - CBCD Performed By: #### L 506.0400, L500.4050, L100.0100, L501.9985, L501.9520, L500.4100 #### [facility] [address] [place], [address] RDW SD 45.6 fl High 35.1-43.9 [facility] Comment on above: Order Comment: Order Date: 09/16/23 Order Info: 0184-1 - CBCD Performed By: #### L 506.0400, L500.4050, L100.0100, L501.9985, L501.9520, L500.4100 #### [facility] [address] [place], [address] WBC (Bld) [#/Vol] 6.5 10*3/uL Normal 4.4-11.0 [facility] Comment on above: Order Comment: Order Date: 09/16/23 Order Info: 0184-1 - CBCD Performed By: #### L 506.0400, L500.4050, L100.0100, L501.9985, L501.9520, L500.4100 #### [facility] [address] [place], [address] Comprehensive Metabolic Prof [facility] 01-11-2024 Albumin [Mass/Vol] 3.8 g/dL Normal 3.2-5.0 [facility] Comment on above: Order Comment: Order Date: 09/16/23 Order Info: [id number] - CMP Order Info: [id number] - LIPID Order Info: 6-3 - TSH Order Info: 302-7 - T4F Performed By: #### L 506.0400, L500.4050, L100.0100, L501.9985, L501.9520, L500.4100 #### [facility] [address] [place], [address] Albumin/Globulin [Mass ratio] 1.2 {ratio} Normal 0.9-2.4 [facility] Comment on above: Order Comment: Order Date: 09/16/23 Order Info: [id number] - CMP Order Info: [id number] - LIPID Order Info: [id number] - TSH Order Info: 3024-7 - T4F Performed By: #### L 506.0400, L500.4050, L100.0100, L501.9985, L501.9520, L500.4100 #### [facility] [address] [place], [address] ALK P 74 U/L Normal 45-117 [facility] Comment on above: Order Comment: Order Date: 09/16/23 Order Info: 86-1 - CMP Order Info: [id number] - LIPID Order Info: [id number] - TSH Order Info: 3024-7 - T4F Performed By: #### L 506.0400, L500.4050, L100.0100, L501.9985, L501.9520, L500.4100 #### [facility] [address] [place], [address] ALT [Catalytic activity/Vol] 17 U/L Normal 16-61 [facility] Comment on above: Order Comment: Order Date: 09/16/23 Order Info: 86-1 - CMP Order Info: [id number] - LIPID Order Info: 3 - TSH Order Info: 3024-7 - T4F Performed By: #### L 506.0400, L500.4050, L100.0100, L501.9985, L501.9520, L500.4100 #### [facility] [address] [place], [address] AST [Catalytic activity/Vol] 29 U/L Normal 15-37 [facility] Comment on above: Order Comment: Order Date: 09/16/23 Order Info: 86-1 - CMP Order Info: [id number] - LIPID Order Info: 6-3 - TSH Order Info: 3024-7 - T4F Performed By: #### L 506.0400, L500.4050, L100.0100, L501.9985, L501.9520, L500.4100 #### [facility] [address] [place], [address] Bilirubin [Mass/Vol] 0.60 mg/dL Normal 0.20-1.00 [facility] Comment on above: Order Comment: Order Date: 09/16/23 Order Info: 86-1 - CMP Order Info: [id number] - LIPID Order Info: [id number] - TSH Order Info: 3024-7 - T4F Result Comment: For patients on eltrombopag therapy, use of Dimension [place] TBIL is not recommended. Performed By: #### L 506.0400, L500.4050, L100.0100, L501.9985, L501.9520, L500.4100 #### [facility] [address] [place], [address] BUN/CRE 15.9 RATIO Normal 10-20 [facility] Comment on above: Order Comment: Order Date: 09/16/23 Order Info: 785- - CMP Order Info: - LIPID Order Info: 3 - TSH Order Info: 7 - T4F Performed By: #### L 506.0400, L500.4050, L100.0100, L501.9985, L501.9520, L500.4100 #### [facility] [address] [place], [address] CA,Total 9.0 mg/dL Normal 8.5-10.1 [facility] Comment on above: Order Comment: Order Date: 09/16/23 Order Info: 785-02 - CMP Order Info: - LIPID Order Info: 3 - TSH Order Info: 3027 - T4F Performed By: #### L 506.0400, L500.4050, L100.0100, L501.9985, L501.9520, L500.4100 #### [facility] [address] [place], [address] Chloride [Moles/Vol] 108 mmol/L High 98-107 [facility] Comment on above: Order Comment: Order Date: 09/16/23 Order Info: 785-02 - CMP Order Info: 12593-7 - LIPID Order Info: 3013 - TSH Order Info: 3024-7 - T4F Performed By: #### L 506.0400, L500.4050, L100.0100, L501.9985, L501.9520, L500.4100 #### [facility] [address] [place], [address] CO2 [Moles/Vol] 27.0 mmol/L Normal 21.0-32.0 [facility] Comment on above: Order Comment: Order Date: 09/16/23 Order Info: 785-1 - CMP Order Info: 68608-8 - LIPID Order Info: 3016-3 - TSH Order Info: 7 - T4F Performed By: #### L 506.0400, L500.4050, L100.0100, L501.9985, L501.9520, L500.4100 #### [facility] [address] [place], [address] Creatinine [Mass/Vol] 1.26 mg/dL Normal 0.70-1.30 [facility] Comment on above: Order Comment: Order Date: 09/16/23 Order Info: 785-02 - CMP Order Info: - LIPID Order Info: 3 - TSH Order Info: 7 - T4F Result Comment: The validity of the calculated GFR GFRAA in patients over 70 years has not been determined. Clinical correlation is essential. Performed By: #### L 506.0400, L500.4050, L100.0100, L501.9985, L501.9520, L500.4100 #### [facility] [address] [place], [address] EST GFR - AA 72 mL/min Normal >60 [facility] Comment on above: Order Comment: Order Date: 09/16/23 Order Info: 785-02 - CMP Order Info: 88568-6 - LIPID Order Info: 30163 - TSH Order Info: 30247 - T4F Result Comment: Afri can [place] GFR Calc Performed By: #### L 506.0400, L500.4050, L100.0100, L501.9985, L501.9520, L500.4100 #### [facility] [address] [place], [address] GAP 4 Low 5-15 [facility] Comment on above: Order Comment: Order Date: 09/16/23 Order Info: 07-1 - CMP Order Info: 32985-6 - LIPID Order Info: 301-3 - TSH Order Info: 3024-7 - T4F Performed By: #### L 506.0400, L500.4050, L100.0100, L501.9985, L501.9520, L500.4100 #### [facility] [address] [place], [address] GFR/1.73 sq M.predicted among non-blacks MDRD (S/P/Bld) [Vol rate/Area] 59 mL/min/{1.73_m2} Low >60 [facility] Comment on above: Order Comment: Order Date: 09/16/23 Order Info: 07-1 - CMP Order Info: 84713-2 - LIPID Order Info: 6-3 - TSH Order Info: 3024-7 - T4F Result Comment: Non- GFR Calc Performed By: #### L 506.0400, L500.4050, L100.0100, L501.9985, L501.9520, L500.4100 #### [facility] [address] [place], [address] Globulin (S) [Mass/Vol] 3.3 g/dL Normal 2.2-4.2 [facility] Comment on above: Order Comment: Order Date: 09/16/23 Order Info: 0786- - CMP Order Info: 75653-2 - LIPID Order Info: 3016-3 - TSH Order Info: 3024-7 - T4F Performed By: #### L 506.0400, L500.4050, L100.0100, L501.9985, L501.9520, L500.4100 #### [facility] [address] [place], [address] Glucose [Mass/Vol] 87 mg/dL Normal 74-106 [facility] Comment on above: Order Comment: Order Date: 09/16/23 Order Info: 785-1 - CMP Order Info: - LIPID Order Info: 3 - TSH Order Info: 3024-7 - T4F Performed By: #### L 506.0400, L500.4050, L100.0100, L501.9985, L501.9520, L500.4100 #### [facility] [address] [place], [address] Potassium [Moles/Vol] 4.0 mmol/L Normal 3.5-5.1 [facility] Comment on above: Order Comment: Order Date: 09/16/23 Order Info: 785-02 - CMP Order Info: - LIPID Order Info: 3015-04 - TSH Order Info: 7 - T4F Performed By: #### L 506.0400, L500.4050, L100.0100, L501.9985, L501.9520, L500.4100 #### [facility] [address] [place], [address] Sodium [Moles/Vol] 139 mmol/L Normal 136-145 [facility] Comment on above: Order Comment: Order Date: 09/16/23 Order Info: 785-02 - CMP Order Info: - LIPID Order Info: 3 - TSH Order Info: 30247 - T4F Performed By: #### L 506.0400, L500.4050, L100.0100, L501.9985, L501.9520, L500.4100 #### [facility] [address] [place], [address] T PROT 7.1 g/dL Normal 6.4-8.2 [facility] Comment on above: Order Comment: Order Date: 09/16/23 Order Info: 785-02 - CMP Order Info: - LIPID Order Info: 3 - TSH Order Info: 3024-7 - T4F Performed By: #### L 506.0400, L500.4050, L100.0100, L501.9985, L501.9520, L500.4100 #### [facility] [address] [place], [place], [address] Urea nitrogen [Mass/Vol] 20 mg/dL High 09-08 [facility] Comment on above: Order Comment: Order Date: 09/16/23 Order Info: 0786 - CMP Order Info: 58831-8 - LIPID Order Info: 3015-04 - TSH Order Info: 3023-08 - T4F Performed By: #### L 506.0400, L500.4050, L100.0100, L501.9985, L501.9520, L500.4100 #### [facility] [address] [place], [place], [address] Hemoglobin A1con 01-11-2024 HbA1c (Bld) [Mass fraction] 5.6 % Normal 3.8-5.6 [facility] Comment on above: Order Comment: Order Date: 09/16/23 Order Info: 4548-4 - A1C Result Comment: Norm al < 5.7 % Prediabetic 5.7 - 6.4 % Diabetic >or= 6.5 % Please note range changes. Performed By: #### L 506.0400, L500.4050, L100.0100, L501.9985, L501.9520, L500.4100 #### [facility] [address] [place], [place], [address] Lipid Profileon 01-11-2024 Cholesterol [Mass/Vol] 140 mg/dL Normal 200 [facility] Comment on above: Order Comment: Order Date: 09/16/23 Order Info: 0786 - CMP Order Info: 01083-9 - LIPID Order Info: 3 - TSH Order Info: 7 - T4F Result Comment: <200 mg/dL Desirable 200-240 mg/dL Borderline >240 mg/dL High Risk Performed By: #### L 506.0400, L500.4050, L100.0100, L501.9985, L501.9520, L500.4100 #### [facility] [address] [place], [address] Cholesterol in HDL [Mass/Vol] 53 mg/dL Normal [facility] Comment on above: Order Comment: Order Date: 09/16/23 Order Info: 0786 - CMP Order Info: 98706-2 - LIPID Order Info: 3 - TSH Order Info: 7 - T4F Result Comment: The drugs N-Acetylcysteine and Metamizole may falsely depress this assay. Reference Range HDL <40 mg/dL Low HDL Cholesterol HDL >or= 60 mg/dL High HDL Cholesterol Performed By: #### L 506.0400, L500.4050, L100.0100, L501.9985, L501.9520, L500.4100 #### [facility] [address] [place], [address] Cholesterol in LDL [Mass/Vol] 72 mg/dL Normal 0-130 [facility] Comment on above: Order Comment: Order Date: 09/16/23 Order Info: 07 - CMP Order Info: - LIPID Order Info: 3015-04 - TSH Order Info: 3023-08 - T4F Performed By: #### L 506.0400, L500.4050, L100.0100, L501.9985, L501.9520, L500.4100 #### [facility] [address] [place], [address] Cholesterol in VLDL [Mass/Vol] 15 mg/dL Normal 5-40 [facility] Comment on above: Order Comment: Order Date: 09/16/23 Order Info: 785-02 - CMP Order Info: - LIPID Order Info: 3015-04 - TSH Order Info: 3023-08 - T4F Performed By: #### L 506.0400, L500.4050, L100.0100, L501.9985, L501.9520, L500.4100 #### [facility] [address] [place], [address] Triglyceride [Mass/Vol] 74 mg/dL Normal [facility] Comment on above: Order Comment: Order [...] 506.0400, L500.4050, L100.0100, L501.9985, L501.9520, L500.4100 #### [facility] [address] [place], [place], [address] T4 Free Directon 01-11-2024 T4 FREE DIRECT 1.01 ng/dL Normal 0.76-1.46 [facility] Comment on above: Order Comment: Order Date: 09/16/23 Order Info: 785-02 - CMP Order Info: - LIPID Order Info: 3 - TSH Order Info: 3023-08 - T4F Performed By: #### L 506.0400, L500.4050, L100.0100, L501.9985, L501.9520, L500.4100 #### [facility] [address] [place], [place], [address] Thyroid Stim Hormone (TSH)on 01-11-2024 TSH 3.440 uIU/mL Normal 0.358-3.740 [facility] Comment on above: Order Comment: Order Date: 09/16/23 Order Info: 785-02 - CMP Order Info: - LIPID Order Info: 3 - TSH Order Info: 3027 - T4F Performed By: #### L 506.0400, L500.4050, L100.0100, L501.9985, L501.9520, L500.4100 #### [facility] [address] [place], [address] OVon 11-17-2023 CNOV Office Visit (AKURFL) SILVIA NICOLE II ([id number]) 1945 M Date Time Provider Department 11/17/23 [...] Diagnosis:Renal cyst [N28.1] Order(s):UA DIP, URINE (POC) [4426320] Order #: [id number]. #:[id number] KIDNEY/BLADDER [[id number]] Order #: [id number] FUTURE Prescriptions as of 11/17/2023 - esomeprazole [...] for Encounter Date Provider Department Center 11/17/2023 [id number] CHAIDEZ JR*[facility] Encounter Status:Closed by RITA CHAIDEZ on 11/17/23 Normal [facility] UA DIP, URINE (POC)on 2023 BILIRUBIN UA (POCT) Negative Negative [facility] CLARITY UA (POCT) Clear [facility] COLOR UA (POCT) Yellow [facility] GLUCOSE UA (POCT) Negative Negative mg/dL [facility] Hemoglobin Ql (U) Negative Negative [facility] KETONE UA (POCT) Negative Negative mg/dL [facility] LEUKOCYTES UA (POCT) Negative Negative [facility] NITRITE UA (POCT) Negative Negative [facility] UA (POCT) 5.5 4.5 - 8.0 [facility] Protein Ql (U) Negative Negative mg/dL [facility] SPECIFIC GRAVITY UA (POCT) 1.015 1.005 - 1.030 [facility] UROBILINOGEN UA (POCT) 0.2 Charleen l E.U./dL [facility] Location:[facility], [address] [place] [address], [address] [place] [address] POINT OF CARE [facility] CNOVon 10-06-2023 CNOV Office Visit (GENSWS) SILVIA NICOLE II ([id number]) 1945 M Date Time Provider Department 10/06/23 10:00 AM DALIA HOLGUIN During your visit today, we recorded the following information about you: Dalia Holguin APRN.OVEN ATTENDANT 10/06/2023 11:29 AM Signed FOLLOW UP VISIT - ENDOSCOPY Silvia Nicole II 1945 [id number] REFERRING PHYSICIAN: Trice Montes [address] [facility] [phone] Silvia Nicole II is a patient I [...] Dalia Holguin APRN.LEELEE Referring Provider: TRICE MONTES [[id number]] Allergies As of Date: 10/06/2023 Noted Allergy Reaction DECONGESTANT TABLET 09/20/2023 14 - Other: See Comments Comments: Avoids due to prostate issues. NAPROSYN (NAPROXEN) 09/20/2023 1 - Mental Status Change Comments: Agitation RAGWEED POLLEN 09/20/2023 14 - Other: See Comments Date Reviewed: 10/06/2023 Reviewed by: Dalia Holguin APRN.OVEN ATTENDANT - Fully Assessed Reason for Visit: Follow Up [171] Cmt: Review EGD results, review CT scan results. Primary Visit Diagnosis:Gastroesop hageal reflux disease with esophagitis without hemorrhage [K21.00] Other Visit Diagnosis:Cyst of right kidney [N28.1] Order(s):CONSULT TO NEPHROLOGY [9018] Order #: [id number]: [id number] FUTURE esomeprazole (NEXIUM) 20 mg capsuleTake [...] Status:Closed by DALIA HOLGUIN on 10/06/23 Normal [facility] CT ABD/PEL W IVCONon 024 CT ABD/PEL W IVCON * * *Final Report* * * DATE OF EXAM: Sep 28 2023 2:39PM [facility] 0530 - CT ABD/PEL W IVCON / [...] of marked elevation of the left hemidiaphragm. Circulation Director: FLORA Transcribe Date/Time: Sep 30 2023 12:01P Dictated by : BRINA LOONEY MD This examination was interpreted and the report reviewed and electronically signed by: BRINA LOONEY MD on Sep 30 2023 12:11PM EST [id number] Normal [facility] [id number] 09-24-2023 [id number] HNO ID: [id number] Author: BRENDA LANDA RN Service: ? Author Type: Registered Nurse Type: [id number] Filed: 09/24/2023 13:48 Note Text: The patient received a copy of EGD discharge instructions that contain information for how to contact the physician who performed the procedure and when to seek medical care. Brenda Landa RN [facility] EGD Study observation Narrat iveon 09-24-2023 [facility] Gastrointestinal Endoscopy Patient Name: Silvia Nicole [...] Biopsied. Recommen (more content not included)... PROVATION [facility] Radiology Study observation (narrative) [facility] HISTORY PHYSICALon HISTORY PHYSICAL HNO ID: [id number] Author: TRICE MONTES MD Service: General Surgery Author Type: Physician Type: H&P Filed: 09/24/2023 11:57 Note Text: HISTORY AND PHYSICAL Silvia Nicole II : 1945 REFERRING PHYSICIAN: No referring provider defined for this encounter. CHIEF COMPLAINT: Patient presents with: Consult: Consultation for GERD and midline hernia. HPI: Siliva is a 77 year old male referred [...] (FLONASE) 50 mcg/actuation nasal spray Use 1 Burkburnett in each nostril once daily. No current [...] entered by the nurse and reviewed by pr Nursing Notes: Tangela Nava RN 09/21/2023 12:20 [...] NOTES c (more content not included)... Normal [facility] NURSING PROGon 09-24-2023 NURSING PROG HNO ID: [id number] Author: BRENDA LANDA RN Service: ? Author [...] Family at bedside. Brenda Landa RN Normal [facility] SURGICAL PATHOLOGYon 024 CASE REPORT Normal [facility] Comment on above: Order Comment: Speci men Type: TISSUE SPECIMENOrdering Facility: [facility] Address: [address] [place] [address] Result Comment: Surg [facility] Pathology Report Case: [id number] Authorizing Provider: Trice Montes MD Collected: 09/24/2023 01:29 PM Ordering Location: Ambulatory Surgery Received: 09/24/2023 03:09 PM Pathologist: Derek Redding MD Specimens: A) - Stomach, Antrum, Biopsy, Antral for H/H B) - Esophagogastric Junction, Biopsy, GE Junction bx Performed By: #### S ####[facility] LABCLIA [id number] [address] OF [place] FINAL DIAGNOSIS Normal [facility] Comment on above: Order Comment: Speci men Type: TISSUE SPECIMENOrdering Facility: [facility] Address: [address] [place] [address] Result Comment: A. S tomach, antrum, biopsy: - Antral mucosa with no significant pathologic change. - No morphologic evidence of Helicobacter. B. Esophagogastric junction, biopsy: - Squamocolumnar junctional mucosa (cardia-type) with mild chronic inflammation. - No intestinal metaplasia identified. Performed By: #### S ####[facility] LABCLIA [id number] [address] OF [facility] FINAL PERFORMING LAB Normal [facility] Comment on above: Order Comment: Speci men Type: TISSUE SPECIMENOrdering Facility: [facility] Address: [address] [place] [address] Result Comment: Diag nostic interpretation performed at [facility], [address] [place] [address] CLIA# [id number] Web Designer Developer: Josh Kinsey M.D. Performed By: #### S ####[facility] LABCLIA [id number] [address] OF [place] GROSS DESCRIPTION Normal [facility] Comment on above: Order Comment: Speci men Type: TISSUE SPECIMENOrdering Facility: [facility] Address: [address] [place] [address] Result Comment: A. S tomach, Antrum, Biopsy Received in formalin is one pieces of valdivia, soft tissue measuring 0.3 x 0.3 x 0.2 cm. Totally submitted in one cassette. B. Esophagogastric Junction, Biopsy Received in formalin are multiple pieces of valdivia, soft tissue aggregating to 0.4 x 0.2 x 0.2 cm. Totally submitted in one cassette. [place] [address] KK September 25, 2023 1:50 AM Performed By: #### S ####[facility] LABSARKIS [id number] [place] [address] [place] Upper GI endoscopyon 024 Upper GI endoscopy [facility] Gastrointestinal Endoscopy Patient Name: Silvia Nicole [...] available appointment. Procedure Code(s): --- Professional --- 41916, Esophagogastroduoden oscopy, flexible, transoral; with biopsy, single or multiple 41002, 59, Moderate sedation services provided by the same physician or other qualified health day care center director performing the diagnostic or therapeutic service that [...] of stomach and duodenum CPT copyright 2020 [employer]. All rights reserved. The codes documented in this report are preliminary and upon sheet cutting operator review may be revised to meet current compliance requir (more content not included)... Normal [facility] CNOVon 09-21-2023 CNOV Office Visit (GENSWS) SILVIA NICOLE II ([id number]) 1945 M Date Time Provider Department 09/21/23 11:00 AM DALIA HOLGUIN During your visit today, we recorded the following information about you: Temperature Pulse Blood pressure Weight 97.8 degrees 94/minute 112/68 82.6 kg Height 1.753 m Dalia Holguin APRN.OVEN ATTENDANT 09/24/2023 8:21 AM Addendum HISTORY AND PHYSICAL [...] (FLONASE) 50 mcg/actuation nasal spray Use 1 Burkburnett in each nostril once daily. No current [...] glaucoma, de (more content not included)... Normal [facility] CNPNon 09-21-2023 LEELEEN Telephone (GENSANTIS) SILVIA NICOLE II ([id number]) 1945 M Date Time Provider Department 09/21/23 [...] CBC, CMP, TSH, T4, Lipid, Liver from [facility] [ID [id number]] Allergies As of Date: 09/21/2023 Noted Allergy Reaction DECONGESTANT TABLET 09/20/2023 14 - Other: See Comments Comments: Avoids due to prostate issues. NAPROSYN (NAPROXEN) 09/20/2023 1 - Mental Status Change Comments: Agitation RAGWEED POLLEN 09/20/2023 14 - Other: See Comments Date Reviewed: 09/21/2023 Reviewed by: Dalia Holguin APRN.OVEN ATTENDANT - Fully Assessed Prescriptions as of 09/24/2023 [...] Encounter Status:Closed by DALIA HOLGUIN on 09/24/23 [facility] Absolute lymphocyte countOrd ered By: Delma Bland on 03-16-2023 Lymphocytes Auto (Unsp spec) [#/Vol] 2.78 10*3/uL 0.83-4.51 [facility] Automated lymphocyte count a s percentage of total leukocytesOrdered By: Delma Bland on 03-16-2023 Lymphocytes/100 WBC Auto (Unsp spec) 37.7 % 19-41 [facility] Basophil percentageOrdered B y: Delma Bland on 03-16-2023 Basophils/100 WBC (Bld) 0.7 % 0-1 [facility] Bilirubin [Mass/Vol] 0.40 mg/dL 0.20-1.00 [facility] Comment on above: For patients on eltr ombopag therapy, use of Dimension [place] TBIL is not recommended. Chloride [Moles/Vol] 110 mmol/L 98-107 [facility] Cholesterol [Mass/Vol] 133 mg/dL <200 [facility] Comment on above: <200 mg/dL Desirable 200-240 mg/dL Borderline >240 mg/dL High Risk Eosinophils/100 WBC (Bld) 1.4 % 0-5 [facility] Glucose [Mass/Vol] 116 mg/dL 74-106 [facility] Comment on above: Fasting Glucose resu lt from 100 to 125 mg/dL suggests IMPAIRED HOMEOSTASIS per A.D.A. criteria. Hemoglobin (Bld) [Mass/Vol] 13.4 g/dL 13.0-16.5 [facility] Monocytes/100 WBC (Bld) 7.9 % 0-10 [facility] Neutrophils (Bld) [#/Vol] 3.9 10*3/uL 2.0-7.7 [facility] Neutrophils/100 WBC (Bld) 52.2 % 47-70 [facility] Potassium [Moles/Vol] 4.1 mmol/L 3.5-5.1 [facility] Protein [Mass/Vol] 6.9 g/dL 6.4-8.2 [facility] Sodium [Moles/Vol] 137 mmol/L 136-145 [facility] Triglyceride [Mass/Vol] 82 mg/dL <199 [facility] Comment on above: The drugs N-Acetylcy steine and Metamizole may falsely depress this assay.Serum Triglycerides Reference Interval Normal <150 mg/dL Borderline high 150 - 199 mg/dL High 200 - 499 mg/dL Very High > or = 500 mg/dL WBC (Bld) [#/Vol] 7.4 10*3/uL 4.4-11.0 [facility] Determination of erythrocyte mean corpuscular volume (MCV)Ordered By: Delma Bland on 03-16-2023 MCV (RBC) [Entitic vol] 100.5 fL 80-94 [facility] Erythrocyte distribution wid th ratioOrdered By: Delma Bland on 03-16-2023 Erythrocyte distribution width (RBC) [Ratio] 11.9 % 11.6-14.6 [facility] Erythrocyte distribution wid th standard deviationOrdered By: Delma Bland on 03-16-2023 Erythrocyte distribution width (RBC) [Entitic vol] 44.2 fL 35.1-43.9 [facility] Hematocrit Auto (Bld) [Volum e fraction]Ordered By: Delma Bland on 03-16-2023 Hematocrit (Bld) [Volume fraction] 42.2 % 40-54 [facility] High density lipoprotein (HD L) measurementOrdered By: Delma Bland on 03-16-2023 Cholesterol in HDL (Body fld) [Mass/Vol] 47 mg/dL >40 [facility] Comment on above: The drugs N-Acetylcy steine and Metamizole may falsely depress this assay. Reference Range HDL <40 mg/dL Low HDL Cholesterol HDL >or= 60 mg/dL High HDL Cholesterol Immature granulocytes/100 WB C Auto (Bld)Ordered By: Delma Bland on 03-16-2023 Immature granulocytes/100 WBC (Bld) 0.100 % 0.0-0.9 [facility] Comment on above: IG% - Immature Granu locytes (promyelocytes, myelocytes and metamyelocytes) > 1% indicates that a LEFT SHIFT is Present. Laboratory - Chemistry and C hemistry - challengeOrdered By: Delma Bland on 03-16-2023 Albumin/Globulin [Mass ratio] 1.1 {ratio} 0.9-2.4 [facility] ALP [Catalytic activity/Vol] 73 U/L 45-117 [facility] ALT [Catalytic activity/Vol] 19 U/L 16-61 [facility] CO2 [Moles/Vol] 23.0 mmol/L 21.0-32.0 [facility] Globulin (S) [Mass/Vol] 3.3 g/dL 2.2-4.2 [facility] Urea nitrogen/Creatinine [Mass ratio] 12.9 mg/mg 10-20 [facility] Laboratory - Hematology and Cell countsOrdered By: Delma Bland on 03-16-2023 MCH (RBC) [Entitic mass] 31.9 pg 27.0-32.0 [facility] MCHC (RBC) [Mass/Vol] 31.8 g/dL 32-36 [facility] Nucleated RBC/100 WBC (Bld) [Ratio] 0 % 0-5 [facility] Platelets (Bld) [#/Vol] 155 10*3/uL 150-450 [facility] Low density lipoprotein (LDL ) cholesterol measurementOrdered By: Delma Bland on 03-16-2023 Cholesterol in LDL (Body fld) [Moles/Vol] 70 mg/dL 0-130 [facility] No Panel InformationOrdered By: Delma Bland on 03-16-2023 Estimated GFR (MDRD) Amer 73 mL/min >60 [facility] Comment on above: GFR Calc Estimated GFR (MDRD) Non-Af Amer 60 mL/min >60 [facility] Comment on above: Non- GFR Calc Platelet mean volume Sushant-Ec ker (Bld) [Entitic vol]Ordered By: Delma Bland on 03-16-2023 Platelet mean volume (Bld) [Entitic vol] 11.8 fL 6.2-12.0 [facility] RBC Auto (Bld) [#/Vol]Ordere d By: Delma Bland on 03-16-2023 RBC (Bld) [#/Vol] 4.20 10*6/uL 4.6-6.2 [facility] Serum or plasma calcium linda urement (mass/volume)Ordered By: Delma Bland on 03-16-2023 Calcium [Mass/Vol] 8.8 mg/dL 8.5-10.1 [facility] Serum or plasma creatinine m easurement (mass/volume)Ordered By: Delma Bland on 03-16-2023 Creatinine [Mass/Vol] 1.24 mg/dL 0.70-1.30 [facility] Comment on above: The validity of the calculated GFR & GFRAA in patients over 70 years has not been determined. Clinical correlation is essential. Serum or plasma thyroid stim ulating hormone (TSH) measurement (units/volume)Ordered By: Delma Bland on 03-16-2023 TSH Qn 0.44 uIU/mL 0.358-3.74 [facility] Serum or plasma urea nitroge n measurement (mass/volume)Ordered By: Delma Bland on 03-16-2023 Urea nitrogen [Mass/Vol] 16 mg/dL 7-18 [facility] Thin prep Papanicolaou smear with manual screeningOrdered By: Delma Bland on 03-16-2023 Thin prep Papanicolaou smear with manual screening 3.6 g/dL 3.2-5.0 [facility] Thin prep Papanicolaou smear with manual screening 24 U/L 15-37 [facility] Thin prep Papanicolaou smear with manual screening 4 5-15 [facility] Thin prep Papanicolaou smear with manual screening 1.23 ng/dL 0.76-1.46 [facility] Very low density lipoprotein (VLDL) cholesterol measurementOrdered By: Delma Bland on 03-16-2023 Cholesterol in VLDL Calc [Moles/Vol] 16 mg/dL 5-40 [facility] Whole blood hemoglobin A1c/t otal hemoglobin ratio (mass fraction)Ordered By: Delma Bland on 03-16-2023 HbA1c (Bld) [Mass fraction] 5.6 % 3.8-5.6 [facility] Comment on above: Normal < 5.7 % Predi abetic 5.7 - 6.4 % Diabetic >or= 6.5 % Please note range changes. Screening prostate specific antigen (PSA) measurementOrdered By: Delma Bland on 03-09-2023 Prostate specific Ag IA [Mass/Vol] 1.36 ng/mL 0.00-4.00 [facility] Comment on above: This test was perfor med using the TPSA assay method for the[employer] chemistry system. Values obtained with differentassay methods cannot be used interchangably.When changing PSA assays in the course of monitoring apatient, additional sequential testing should be carriedout to confirm baseline values. Absolute lymphocyte countOrd ered By: Delma Bland on 09-17-2022 Lymphocytes Auto (Unsp spec) [#/Vol] 3.33 10*3/uL 0.83-4.51 [facility] Basophil percentageOrdered B y: Delma Bland on 09-17-2022 Basophils/100 WBC (Bld) 0.4 % 0-1 [facility] Bilirubin [Mass/Vol] 0.70 mg/dL 0.20-1.00 [facility] Comment on above: For patients on eltr ombopag therapy, use of Dimension [place] TBIL is not recommended. Chloride [Moles/Vol] 106 mmol/L 98-107 [facility] Cholesterol [Mass/Vol] 142 mg/dL <200 [facility] Comment on above: <200 mg/dL Desirable 200-240 mg/dL Borderline >240 mg/dL High Risk Eosinophils/100 WBC (Bld) 0.8 % 0-5 [facility] Glucose [Mass/Vol] 101 mg/dL 74-106 [facility] Comment on above: Fasting Glucose resu lt from 100 to 125 mg/dL suggests IMPAIRED HOMEOSTASIS per A.D.A. criteria. Neutrophils (Bld) [#/Vol] 4.3 10*3/uL 2.0-7.7 [facility] Neutrophils/100 WBC (Bld) 51.8 % 47-70 [facility] Potassium [Moles/Vol] 4.1 mmol/L 3.5-5.1 [facility] Protein [Mass/Vol] 7.4 g/dL 6.4-8.2 [facility] Sodium [Moles/Vol] 139 mmol/L 136-145 [facility] Triglyceride [Mass/Vol] 70 mg/dL <199 [facility] Comment on above: The drugs N-Acetylcy steine and Metamizole may falsely depress this assay.Serum Triglycerides Reference Interval Normal <150 mg/dL Borderline high 150 - 199 mg/dL High 200 - 499 mg/dL Very High > or = 500 mg/dL WBC (Bld) [#/Vol] 8.3 10*3/uL 4.4-11.0 [facility] Blood erythrocytes count (nu mber/volume)Ordered By: Delma Bland on 09-17-2022 RBC (Bld) [#/Vol] 4.17 10*6/uL 4.6-6.2 [facility] Blood hemoglobin measurement (mass/volume)Ordered By: Delma Bland on 09-17-2022 Hemoglobin (Bld) [Mass/Vol] 13.7 g/dL 13.0-16.5 [facility] Blood lymphocytes/100 leukoc ytesOrdered By: Delma Bland on 09-17-2022 Lymphocytes/100 WBC (Bld) 40.4 % 19-41 [facility] Blood monocytes/100 leukocyt esOrdered By: Delma Bland on 09-17-2022 Monocytes/100 WBC (Bld) 6.5 % 0-10 [facility] Blood platelet mean volumeOr dered By: Delma Bland on 09-17-2022 Platelet mean volume (Bld) [Entitic vol] 10.5 fL 6.2-12.0 [facility] Determination of erythrocyte mean corpuscular volume (MCV)Ordered By: Delma Bland on 09-17-2022 MCV (RBC) [Entitic vol] 101.9 fL 80-94 [facility] Hematocrit Auto (Bld) [Volum e fraction]Ordered By: Delma Bland on 09-17-2022 Hematocrit (Bld) [Volume fraction] 42.5 % 40-54 [facility] Laboratory - Chemistry and C hemistry - challengeOrdered By: Delma Bland on 09-17-2022 ALP [Catalytic activity/Vol] 68 U/L 45-117 [facility] ALT [Catalytic activity/Vol] 27 U/L 16-61 [facility] CO2 [Moles/Vol] 27.0 mmol/L 21.0-32.0 [facility] Free T4 [Mass/Vol] 1.33 ng/dL 0.76-1.46 [facility] Globulin (S) [Mass/Vol] 3.7 g/dL 2.2-4.2 [facility] Urea nitrogen/Creatinine [Mass ratio] 13.2 mg/mg 10-20 [facility] Laboratory - Hematology and Cell countsOrdered By: Delma Bland on 09-17-2022 Erythrocyte distribution width (RBC) [Entitic vol] 46.5 fL 35.1-43.9 [facility] Erythrocyte distribution width (RBC) [Ratio] 12.4 % 11.6-14.6 [facility] Immature granulocytes/100 WBC (Bld) 0.100 % 0.0-0.9 [facility] Comment on above: IG% - Immature Granu locytes (promyelocytes, myelocytes and metamyelocytes) > 1% indicates that a LEFT SHIFT is Present. MCH (RBC) [Entitic mass] 32.9 pg 27.0-32.0 [facility] Nucleated RBC/100 WBC (Bld) [Ratio] 0 % 0-5 [facility] MCHC Auto (RBC) [Mass/Vol]Or dered By: Delma Bland on 09-17-2022 MCHC (RBC) [Mass/Vol] 32.2 g/dL 32-36 [facility] No Panel InformationOrdered By: Delma Bland on 09-17-2022 Estimated GFR (MDRD) Amer 75 mL/min >60 [facility] Comment on above: GFR Calc Estimated GFR (MDRD) Non-Af Amer 62 mL/min >60 [facility] Comment on above: Non- GFR Calc Thyroid Stimulating Hormone (TSH) 1.99 uIU/mL 0.358-3.74 [facility] Platelets bldOrdered By: Vj Bland on 09-17-2022 Platelets (Bld) [#/Vol] 181 10*3/uL 150-450 [facility] Serum or plasma albumin linda urement (mass/volume)Ordered By: Delma Bland on 09-17-2022 Albumin [Mass/Vol] 3.7 g/dL 3.2-5.0 [facility] Serum or plasma albumin/glob ulin mass ratioOrdered By: Delma Bland on 09-17-2022 Albumin/Globulin [Mass ratio] 1.0 {ratio} 0.9-2.4 [facility] Serum or plasma calcium linda urement (mass/volume)Ordered By: Delma Bland on 09-17-2022 Calcium [Mass/Vol] 8.9 mg/dL 8.5-10.1 [facility] Serum or plasma cholesterol in HDL measurement (mass/volume)Ordered By: Delma Bland on 09-17-2022 Cholesterol in HDL [Mass/Vol] 59 mg/dL >40 [facility] Comment on above: The drugs N-Acetylcy steine and Metamizole may falsely depress this assay. Reference Range HDL <40 mg/dL Low HDL Cholesterol HDL >or= 60 mg/dL High HDL Cholesterol Serum or plasma cholesterol in VLDL measurement (mass/volume)Ordered By: Delma Bland on 09-17-2022 Cholesterol in VLDL [Mass/Vol] 14 mg/dL 5-40 [facility] Serum or plasma creatinine m easurement (mass/volume)Ordered By: Delma Bland on 09-17-2022 Creatinine [Mass/Vol] 1.21 mg/dL 0.70-1.30 [facility] Comment on above: The validity of the calculated GFR & GFRAA in patients over 70 years has not been determined. Clinical correlation is essential. Serum or plasma low density lipoprotein (LDL) cholesterol measurement (mass/volume)Ordered By: Delma Bland on 09-17-2022 Cholesterol in LDL [Mass/Vol] 69 mg/dL 0-130 [facility] Serum or plasma urea nitroge n measurement (mass/volume)Ordered By: Delma Bland on 09-17-2022 Urea nitrogen [Mass/Vol] 16 mg/dL 7-18 [facility] Thin prep Papanicolaou smear with manual screeningOrdered By: Delma Bland on 09-17-2022 Thin prep Papanicolaou smear with manual screening 28 U/L 15-37 [facility] Thin prep Papanicolaou smear with manual screening 6 5-15 [facility] Whole blood hemoglobin A1c/t otal hemoglobin ratio (mass fraction)Ordered By: Delma Bland on 09-17-2022 HbA1c (Bld) [Mass fraction] 5.9 % 3.8-5.6 [facility] Comment on above: Normal < 5.7 % Predi abetic 5.7 - 6.4 % Diabetic >or= 6.5 % Please note range changes. Absolute lymphocyte countOrd ered By: Dr. Bland on 05-14-2022 Lymphocytes Auto (Unsp spec) [#/Vol] 4.01 10*3/uL 0.83-4.51 [facility] Basophil percentageOrdered B y: Dr. Bland on 05-14-2022 Basophils/100 WBC (Bld) 0.6 % 0-1 [facility] Bilirubin [Mass/Vol] 0.50 mg/dL 0.20-1.00 [facility] Comment on above: For patients on eltr ombopag therapy, use of Dimension [place] TBIL is not recommended. Chloride [Moles/Vol] 106 mmol/L 98-107 [facility] Cholesterol [Mass/Vol] 128 mg/dL <200 [facility] Comment on above: <200 mg/dL Desirable 200-240 mg/dL Borderline >240 mg/dL High Risk Eosinophils/100 WBC (Bld) 1.1 % 0-5 [facility] Glucose [Mass/Vol] 99 mg/dL 74-106 [facility] Neutrophils (Bld) [#/Vol] 3.5 10*3/uL 2.0-7.7 [facility] Neutrophils/100 WBC (Bld) 41.8 % 47-70 [facility] Potassium [Moles/Vol] 4.0 mmol/L 3.5-5.1 [facility] Protein [Mass/Vol] 7.3 g/dL 6.4-8.2 [facility] Sodium [Moles/Vol] 137 mmol/L 136-145 [facility] Triglyceride [Mass/Vol] 128 mg/dL <199 [facility] Comment on above: The drugs N-Acetylcy steine and Metamizole may falsely depress this assay.Serum Triglycerides Reference Interval Normal <150 mg/dL Borderline high 150 - 199 mg/dL High 200 - 499 mg/dL Very High > or = 500 mg/dL WBC (Bld) [#/Vol] 8.4 10*3/uL 4.4-11.0 [facility] Blood erythrocytes count (nu mber/volume)Ordered By: Dr. Bland on 05-14-2022 RBC (Bld) [#/Vol] 4.25 10*6/uL 4.6-6.2 [facility] Blood hemoglobin measurement (mass/volume)Ordered By: Dr. Bland on 05-14-2022 Hemoglobin (Bld) [Mass/Vol] 13.6 g/dL 13.0-16.5 [facility] Blood lymphocytes/100 leukoc ytesOrdered By: Dr. Bland on 05-14-2022 Lymphocytes/100 WBC (Bld) 48.0 % 19-41 [facility] Blood monocytes/100 leukocyt esOrdered By: Dr. Bland on 05-14-2022 Monocytes/100 WBC (Bld) 8.3 % 0-10 [facility] Blood platelet mean volumeOr dered By: Dr. Bland on 05-14-2022 Platelet mean volume (Bld) [Entitic vol] 11.2 fL 6.2-12.0 [facility] Determination of erythrocyte mean corpuscular volume (MCV)Ordered By: Dr. Bland on 05-14-2022 MCV (RBC) [Entitic vol] 97.6 fL 80-94 [facility] Hematocrit Auto (Bld) [Volum e fraction]Ordered By: Dr. Bland on 05-14-2022 Hematocrit (Bld) [Volume fraction] 41.5 % 40-54 [facility] Laboratory - Chemistry and C hemistry - challengeOrdered By: Dr. Bland on 05-14-2022 ALP [Catalytic activity/Vol] 66 U/L 45-117 [facility] ALT [Catalytic activity/Vol] 23 U/L 16-61 [facility] CO2 [Moles/Vol] 24.0 mmol/L 21.0-32.0 [facility] Free T4 [Mass/Vol] 1.25 ng/dL 0.76-1.46 [facility] Globulin (S) [Mass/Vol] 3.5 g/dL 2.2-4.2 [facility] Urea nitrogen/Creatinine [Mass ratio] 15.4 mg/mg 10-20 [facility] Laboratory - Hematology and Cell countsOrdered By: Dr. Bland on 05-14-2022 Erythrocyte distribution width (RBC) [Entitic vol] 43.9 fL 35.1-43.9 [facility] Erythrocyte distribution width (RBC) [Ratio] 12.1 % 11.6-14.6 [facility] Immature granulocytes/100 WBC (Bld) 0.200 % 0.0-0.9 [facility] Comment on above: IG% - Immature Granu locytes (promyelocytes, myelocytes and metamyelocytes) > 1% indicates that a LEFT SHIFT is Present. MCH (RBC) [Entitic mass] 32.0 pg 27.0-32.0 [facility] Nucleated RBC/100 WBC (Bld) [Ratio] 0 % 0-5 [facility] MCHC Auto (RBC) [Mass/Vol]Or dered By: Dr. Bland on 05-14-2022 MCHC (RBC) [Mass/Vol] 32.8 g/dL 32-36 [facility] No Panel InformationOrdered By: Dr. Bland on 05-14-2022 Estimated GFR (MDRD) Amer 90 mL/min >60 [facility] Comment on above: GFR Calc Estimated GFR (MDRD) Non-Af Amer 74 mL/min >60 [facility] Comment on above: Non- GFR Calc Thyroid Stimulating Hormone (TSH) 1.74 uIU/mL 0.358-3.74 [facility] Platelets bldOrdered By: Dr. Bland on 05-14-2022 Platelets (Bld) [#/Vol] 219 10*3/uL 150-450 [facility] Serum or plasma albumin linda urement (mass/volume)Ordered By: Dr. Bland on 05-14-2022 Albumin [Mass/Vol] 3.8 g/dL 3.2-5.0 [facility] Serum or plasma albumin/glob ulin mass ratioOrdered By: Dr. Bland on 05-14-2022 Albumin/Globulin [Mass ratio] 1.1 {ratio} 0.9-2.4 [facility] Serum or plasma calcium linda urement (mass/volume)Ordered By: Dr. Bland on 05-14-2022 Calcium [Mass/Vol] 8.9 mg/dL 8.5-10.1 [facility] Serum or plasma cholesterol in HDL measurement (mass/volume)Ordered By: Dr. Bland on 05-14-2022 Cholesterol in HDL [Mass/Vol] 43 mg/dL >40 [facility] Comment on above: The drugs N-Acetylcy steine and Metamizole may falsely depress this assay. Reference Range HDL <40 mg/dL Low HDL Cholesterol HDL >or= 60 mg/dL High HDL Cholesterol Serum or plasma cholesterol in VLDL measurement (mass/volume)Ordered By: Dr. Bland on 05-14-2022 Cholesterol in VLDL [Mass/Vol] 26 mg/dL 5-40 [facility] Serum or plasma creatinine m easurement (mass/volume)Ordered By: Dr. Bland on 05-14-2022 Creatinine [Mass/Vol] 1.04 mg/dL 0.70-1.30 [facility] Comment on above: The validity of the calculated GFR & GFRAA in patients over 70 years has not been determined. Clinical correlation is essential. Serum or plasma low density lipoprotein (LDL) cholesterol measurement (mass/volume)Ordered By: Dr. Bland on 05-14-2022 Cholesterol in LDL [Mass/Vol] 59 mg/dL 0-130 [facility] Serum or plasma urea nitroge n measurement (mass/volume)Ordered By: Dr. Bland on 05-14-2022 Urea nitrogen [Mass/Vol] 16 mg/dL 7-18 [facility] Thin prep Papanicolaou smear with manual screeningOrdered By: Dr. Bland on 05-14-2022 Thin prep Papanicolaou smear with manual screening 21 U/L 15-37 [facility] Thin prep Papanicolaou smear with manual screening 7 5-15 [facility] Absolute lymphocyte countOrd ered By: Dr. Bland on 02-12-2022 Lymphocytes Auto (Unsp spec) [#/Vol] 3.33 10*3/uL 0.83-4.51 [facility] Basophil percentageOrdered B y: Dr. Bland on 02-12-2022 Basophils/100 WBC (Bld) 0.7 % 0-1 [facility] Bilirubin [Mass/Vol] 0.60 mg/dL 0.20-1.00 [facility] Comment on above: For patients on eltr ombopag therapy, use of Dimension [place] TBIL is not recommended. Chloride [Moles/Vol] 108 mmol/L 98-107 [facility] Cholesterol [Mass/Vol] 142 mg/dL <200 [facility] Comment on above: <200 mg/dL Desirable 200-240 mg/dL Borderline >240 mg/dL High Risk Eosinophils/100 WBC (Bld) 1.4 % 0-5 [facility] Glucose [Mass/Vol] 83 mg/dL 74-106 [facility] Neutrophils (Bld) [#/Vol] 2.9 10*3/uL 2.0-7.7 [facility] Neutrophils/100 WBC (Bld) 41.8 % 47-70 [facility] Potassium [Moles/Vol] 4.3 mmol/L 3.5-5.1 [facility] Protein [Mass/Vol] 7.3 g/dL 6.4-8.2 [facility] Sodium [Moles/Vol] 138 mmol/L 136-145 [facility] Triglyceride [Mass/Vol] 111 mg/dL <199 [facility] Comment on above: The drugs N-Acetylcy steine and Metamizole may falsely depress this assay.Serum Triglycerides Reference Interval Normal <150 mg/dL Borderline high 150 - 199 mg/dL High 200 - 499 mg/dL Very High > or = 500 mg/dL WBC (Bld) [#/Vol] 7.0 10*3/uL 4.4-11.0 [facility] Blood erythrocytes count (nu mber/volume)Ordered By: Dr. Bland on 02-12-2022 RBC (Bld) [#/Vol] 4.29 10*6/uL 4.6-6.2 [facility] Blood hemoglobin measurement (mass/volume)Ordered By: Dr. Blnad on 02-12-2022 Hemoglobin (Bld) [Mass/Vol] 14.2 g/dL 13.0-16.5 [facility] Blood lymphocytes/100 leukoc ytesOrdered By: Dr. Bland on 02-12-2022 Lymphocytes/100 WBC (Bld) 47.3 % 19-41 [facility] Blood monocytes/100 leukocyt esOrdered By: Dr. Bland on 02-12-2022 Monocytes/100 WBC (Bld) 8.5 % 0-10 [facility] Blood platelet mean volumeOr dered By: Dr. Bland on 02-12-2022 Platelet mean volume (Bld) [Entitic vol] 11.3 fL 6.2-12.0 [facility] Determination of erythrocyte mean corpuscular volume (MCV)Ordered By: Dr. Bland on 02-12-2022 MCV (RBC) [Entitic vol] 98.8 fL 80-94 [facility] Hematocrit Auto (Bld) [Volum e fraction]Ordered By: Dr. Bland on 02-12-2022 Hematocrit (Bld) [Volume fraction] 42.4 % 40-54 [facility] Laboratory - Chemistry and C hemistry - challengeOrdered By: Dr. Bland on 02-12-2022 ALP [Catalytic activity/Vol] 70 U/L 45-117 [facility] ALT [Catalytic activity/Vol] 24 U/L 16-61 [facility] CO2 [Moles/Vol] 25.0 mmol/L 21.0-32.0 [facility] Free T4 [Mass/Vol] 1.23 ng/dL 0.76-1.46 [facility] Globulin (S) [Mass/Vol] 3.2 g/dL 2.2-4.2 [facility] Urea nitrogen/Creatinine [Mass ratio] 15.5 mg/mg 10-20 [facility] Laboratory - Hematology and Cell countsOrdered By: Dr. Bland on 02-12-2022 Erythrocyte distribution width (RBC) [Entitic vol] 43.4 fL 35.1-43.9 [facility] Erythrocyte distribution width (RBC) [Ratio] 11.9 % 11.6-14.6 [facility] Immature granulocytes/100 WBC (Bld) 0.300 % 0.0-0.9 [facility] Comment on above: IG% - Immature Granu locytes (promyelocytes, myelocytes and metamyelocytes) > 1% indicates that a LEFT SHIFT is Present. MCH (RBC) [Entitic mass] 33.1 pg 27.0-32.0 [facility] Nucleated RBC/100 WBC (Bld) [Ratio] 0 % 0-5 [facility] MCHC Auto (RBC) [Mass/Vol]Or dered By: Dr. Bland on 02-12-2022 MCHC (RBC) [Mass/Vol] 33.5 g/dL 32-36 [facility] No Panel InformationOrdered By: Dr. Bland on 02-12-2022 Estimated GFR (MDRD) Amer 84 mL/min >60 [facility] Comment on above: GFR Calc Estimated GFR (MDRD) Non-Af Amer 70 mL/min >60 [facility] Comment on above: Non- GFR Calc Prostate Specific Antigen Screen 1.07 ng/mL 0.00-4.00 [facility] Comment on above: This test was perfor med using the TPSA assay method for the[facility]. Values obtained with differentassay methods cannot be used interchangably.When changing PSA assays in the course of monitoring apatient, additional sequential testing should be carriedout to confirm baseline values. Thyroid Stimulating Hormone (TSH) 1.58 uIU/mL 0.358-3.74 [facility] Platelets bldOrdered By: Dr. Bland on 02-12-2022 Platelets (Bld) [#/Vol] 184 10*3/uL 150-450 [facility] Serum or plasma albumin linda urement (mass/volume)Ordered By: Dr. Bland on 02-12-2022 Albumin [Mass/Vol] 4.1 g/dL 3.2-5.0 [facility] Serum or plasma albumin/glob ulin mass ratioOrdered By: Dr. Bland on 02-12-2022 Albumin/Globulin [Mass ratio] 1.3 {ratio} 0.9-2.4 [facility] Serum or plasma calcium linda urement (mass/volume)Ordered By: Dr. Bland on 02-12-2022 Calcium [Mass/Vol] 8.9 mg/dL 8.5-10.1 [facility] Serum or plasma cholesterol in HDL measurement (mass/volume)Ordered By: Dr. Bland on 02-12-2022 Cholesterol in HDL [Mass/Vol] 50 mg/dL >40 [facility] Comment on above: The drugs N-Acetylcy steine and Metamizole may falsely depress this assay. Reference Range HDL <40 mg/dL Low HDL Cholesterol HDL >or= 60 mg/dL High HDL Cholesterol Serum or plasma cholesterol in VLDL measurement (mass/volume)Ordered By: Dr. Bland on 02-12-2022 Cholesterol in VLDL [Mass/Vol] 22 mg/dL 5-40 [facility] Serum or plasma creatinine m easurement (mass/volume)Ordered By: Dr. Bland on 02-12-2022 Creatinine [Mass/Vol] 1.10 mg/dL 0.70-1.30 [facility] Comment on above: The validity of the calculated GFR & GFRAA in patients over 70 years has not been determined. Clinical correlation is essential. Serum or plasma low density lipoprotein (LDL) cholesterol measurement (mass/volume)Ordered By: Dr. Bland on 02-12-2022 Cholesterol in LDL [Mass/Vol] 70 mg/dL 0-130 [facility] Serum or plasma urea nitroge n measurement (mass/volume)Ordered By: Dr. Bland on 02-12-2022 Urea nitrogen [Mass/Vol] 17 mg/dL 7-18 [facility] Thin prep Papanicolaou smear with manual screeningOrdered By: Dr. Bland on 02-12-2022 Thin prep Papanicolaou smear with manual screening 22 U/L 15-37 [facility] Thin prep Papanicolaou smear with manual screening 5 5-15 [facility] Absolute lymphocyte counton 08-29-2021 Lymphocytes Auto (Unsp spec) [#/Vol] 3.35 10*3/uL 0.83-4.51 [facility] Work Phone: Basophil percentageon 08-29- 2021 Basophils/100 WBC (Bld) 0.8 % 0-1 [facility] Work Phone: Bilirubin [Mass/Vol] 0.40 mg/dL 0.20-1.00 [facility] Work Phone: Comment on above: For patients on eltr ombopag therapy, use of Dimension [place] TBIL is not recommended. Chloride [Moles/Vol] 106 mmol/L 98-107 [facility] Work Phone: Cholesterol [Mass/Vol] 155 mg/dL <200 [facility] Work Phone: Comment on above: <200 mg/dL Desirable 200-240 mg/dL Borderline >240 mg/dL High Risk Eosinophils/100 WBC (Bld) 2.4 % 0-5 [facility] Work Phone: Glucose [Mass/Vol] 96 mg/dL 74-106 [facility] Work Phone: Neutrophils (Bld) [#/Vol] 3.7 10*3/uL 2.0-7.7 [facility] Work Phone: Neutrophils/100 WBC (Bld) 46.4 % 47-70 [facility] Work Phone: Potassium [Moles/Vol] 4.0 mmol/L 3.5-5.1 [facility] Work Phone: Protein [Mass/Vol] 7.2 g/dL 6.4-8.2 [facility] Work Phone: Sodium [Moles/Vol] 137 mmol/L 136-145 [facility] Work Phone: Triglyceride [Mass/Vol] 160 mg/dL <199 [facility] Work Phone: Comment on above: The drugs N-Acetylcy steine and Metamizole may falsely depress this assay.Serum Triglycerides Reference Interval Normal <150 mg/dL Borderline high 150 - 199 mg/dL High 200 - 499 mg/dL Very High > or = 500 mg/dL WBC (Bld) [#/Vol] 8.0 10*3/uL 4.4-11.0 [facility] Work Phone: Blood erythrocytes count (nu mber/volume)on 08-29-2021 RBC (Bld) [#/Vol] 4.31 10*6/uL 4.6-6.2 [facility] Work Phone: Blood hemoglobin measurement (mass/volume)on 08-29-2021 Hemoglobin (Bld) [Mass/Vol] 13.9 g/dL 13.0-16.5 [facility] Work Phone: [phone] Blood lymphocytes/100 leukoc yteson 08-29-2021 Lymphocytes/100 WBC (Bld) 42.1 % 19-41 [facility] Work Phone: [phone] Blood monocytes/100 leukocyt eson 08-29-2021 Monocytes/100 WBC (Bld) 7.9 % 0-10 [facility] Work Phone: Blood platelet mean volumeon 08-29-2021 Platelet mean volume (Bld) [Entitic vol] 11.2 fL 6.2-12.0 [facility] Work Phone: [phone] Determination of erythrocyte mean corpuscular volume (MCV)on 08-29-2021 MCV (RBC) [Entitic vol] 99.8 fL 80-94 [facility] Work Phone: [phone] Hematocrit Auto (Bld) [Volum e fraction]on 08-29-2021 Hematocrit (Bld) [Volume fraction] 43.0 % 40-54 [facility] Work Phone: [phone] Laboratory - Chemistry and C hemistry - challengeon 08-29-2021 ALP [Catalytic activity/Vol] 68 U/L 45-117 [facility] Work Phone: ALT [Catalytic activity/Vol] 23 U/L 16-61 [facility] Work Phone: [phone] CO2 [Moles/Vol] 24.0 mmol/L 21.0-32.0 [facility] Work Phone: [phone] Free T4 [Mass/Vol] 1.09 ng/dL 0.76-1.46 [facility] Work Phone: [phone] Globulin (S) [Mass/Vol] 3.5 g/dL 2.2-4.2 [facility] Work Phone: [phone] Urea nitrogen/Creatinine [Mass ratio] 16.2 mg/mg 10-20 [facility] Work Phone: [phone] Laboratory - Hematology and Cell countson 08-29-2021 Erythrocyte distribution width (RBC) [Entitic vol] 44.7 fL 35.1-43.9 [facility] Work Phone: [phone] Erythrocyte distribution width (RBC) [Ratio] 12.2 % 11.6-14.6 [facility] Work Phone: [phone] Immature granulocytes/100 WBC (Bld) 0.400 % 0.0-0.9 [facility] Work Phone: [phone] Comment on above: IG% - Immature Granu locytes (promyelocytes, myelocytes and metamyelocytes) > 1% indicates that a LEFT SHIFT is Present. MCH (RBC) [Entitic mass] 32.3 pg 27.0-32.0 [facility] Work Phone: [phone] Nucleated RBC/100 WBC (Bld) [Ratio] 0 % 0-5 [facility] Work Phone: [phone] MCHC Auto (RBC) [Mass/Vol]on 08-29-2021 MCHC (RBC) [Mass/Vol] 32.3 g/dL 32-36 [facility] Work Phone: [phone] Panel Informationon 08-29 Estimated GFR (MDRD) Amer 83 mL/min >60 [facility] Work Phone: [phone] Comment on above: GFR Calc Estimated GFR (MDRD) Non-Af Amer 69 mL/min >60 [facility] Work Phone: [phone] Comment on above: Non- GFR Calc Thyroid Stimulating Hormone (TSH) 1.59 uIU/mL 0.358-3.74 [facility] Work Phone: Platelets bldon 08-29-2021 Platelets (Bld) [#/Vol] 204 10*3/uL 150-450 [facility] Work Phone: Serum or plasma albumin linda urement (mass/volume)on 08-29-2021 Albumin [Mass/Vol] 3.7 g/dL 3.2-5.0 [facility] Work Phone: Serum or plasma albumin/glob ulin mass ratioon 08-29-2021 Albumin/Globulin [Mass ratio] 1.1 {ratio} 0.9-2.4 [facility] Work Phone: Serum or plasma calcium linda urement (mass/volume)on 08-29-2021 Calcium [Mass/Vol] 8.8 mg/dL 8.5-10.1 [facility] Work Phone: Serum or plasma cholesterol in HDL measurement (mass/volume)on 08-29-2021 Cholesterol in HDL [Mass/Vol] 44 mg/dL >40 [facility] Work Phone: Comment on above: The drugs N-Acetylcy steine and Metamizole may falsely depress this assay. Reference Range HDL <40 mg/dL Low HDL Cholesterol HDL >or= 60 mg/dL High HDL Cholesterol Serum or plasma cholesterol in VLDL measurement (mass/volume)on 08-29-2021 Cholesterol in VLDL [Mass/Vol] 32 mg/dL 5-40 [facility] Work Phone: Serum or plasma creatinine m easurement (mass/volume)on 08-29-2021 Creatinine [Mass/Vol] 1.11 mg/dL 0.70-1.30 [facility] Work Phone: Comment on above: The validity of the calculated GFR & GFRAA in patients over 70 years has not been determined. Clinical correlation is essential. Serum or plasma low density lipoprotein (LDL) cholesterol measurement (mass/volume)on 08-29-2021 Cholesterol in LDL [Mass/Vol] 79 mg/dL 0-130 [facility] Work Phone: [phone] Serum or plasma urea nitroge n measurement (mass/volume)on 08-29-2021 Urea nitrogen [Mass/Vol] 18 mg/dL 7-18 [facility] Work Phone: [phone] Thin prep Papanicolaou smear with manual screeningon 08-29-2021 Thin prep Papanicolaou smear with manual screening 23 U/L 15-37 [facility] Work Phone: [phone] Thin prep Papanicolaou smear with manual screening 7 5-15 [facility] Work Phone: [phone] Laboratory - Microbiology an d Antimicrobial susceptibilityon 07-07-2021 SARS-CoV-2 (COVID-19) RNA AMOS+probe Ql (Unsp spec) Not detected [facility] Work Phone: [phone] Panel Informationon 07-07 Influenza Types A,B Rapid (Clinic) Not detected [facility] Work Phone: Laboratory - Chemistry and C hemistry - challengeon 02-25-2021 CK [Catalytic activity/Vol] 166 U/L 39-308 [facility] Work Phone: [phone] Magnesium [Mass/Vol] 2.3 mg/dL 1.6-2.6 [facility] Work Phone: [phone] Panel Informationon 02-25 Prostate Specific Antigen Total 1.14 ng/mL 0.0-4.0 [facility] Work Phone: [phone] Comment on above: This test was perfor med using the TPSA assay method for the[facility] chemistry system. Values obtained with differentassay methods cannot be used interchangably.When changing PSA assays in the course of monitoring apatient, additional sequential testing should be carriedout to confirm baseline values. Thyroid Stimulating Hormone (TSH) 1.08 uIU/mL 0.358-3.74 [facility] Work Phone: [phone] Serum or plasma ferritin noel surement (mass/volume)on 02-25-2021 Ferritin [Mass/Vol] 188 ng/mL 26-388 [facility] Work Phone: Office Visit: UC: bronchitis on 12-24-2016 Documentation of current medications (procedure) Done Invalid Interpretation Code [facility] Work Phone: Fall risk assessment No Invalid Interpretation Code [facility] Work Phone: Tobacco smoking status NHIS Never Invalid Interpretation Code [facility] Work Phone: Tobacco use HS Never smoker Invalid Interpretation Code [facility] Work Phone: MRI CERVICAL SPINE W/O CONTR Wanda 09-01-2016 MRI CERVICAL SPINE W/O CONTRAST Performed at [facility] APPROVED BY: Fuentes Castillo MD EXAMINATION: [...] opposite to the side of symptomatology. Normal [facility] MRI THORACIC SPINE W/O CONTR Wanad 09-01-2016 MRI THORACIC SPINE W/O CONTRAST Performed at [facility] APPROVED BY: Fuentes Castillo MD EXAM [...] disc bulging at T8-9 and T6-7. Normal [facility] Vital Signs Date Time Vital Sign Value Performing Clinician Facility 11-17-2023 12:47-0400 Diastolic blood pressure 78 mm[Hg] Rita Chaidez Jr., MD Work Phone: [facility] 11-17-2023 12:47-0400 Heart rate 71 /min Rita Chaidez Jr., MD Work Phone: [facility] 11-17-2023 12:47-0400 SaO2% (BldA) [Mass fraction] 95 % Rita Chaidez Jr., MD Work Phone: [facility] 11-17-2023 12:47-0400 Systolic blood pressure 122 mm[Hg] Rita Chaidez Jr., MD Work Phone: [facility] 09-24-2023 14:16-0400 Diastolic blood pressure 68 mm[Hg] Trice Montes MD Work Phone: [facility] 09-24-2023 14:16-0400 Heart rate 78 /min Trice Montes MD Work Phone: [facility] 09-24-2023 14:16-0400 Respiratory rate 16 /min Trice Montes MD Work Phone: [facility] 09-24-2023 14:160400 SaO2% (BldA) [Mass fraction] 95 % Trice Montes MD Work Phone: [facility] 09-24-2023 14:16-0400 Systolic blood pressure 110 mm[Hg] Trice Montes MD Work Phone: [facility] 09-24-2023 12:25-0400 Body mass index (BMI) [Ratio] 26.89 kg/m2 Trice Montes MD Work Phone: [facility] 09-24-2023 12:25-0400 Body temperature 98.2 [degF] Trice Montes MD Work Phone: [facility] 09-24-2023 12:25-0400 Body weight 82.6 kg Trice Montes MD Work Phone: [facility] 09-21-2023 11:21-0400 Body height 175.3 cm Dalia Ezio SENIOR SOFTWARE QUALITY ANALYST.OVEN ATTENDANT Work Phone: [facility] 09-21-2023 11:21-0400 Body mass index (BMI) [Ratio] 26.91 kg/m2 Dalia Ezio SENIOR SOFTWARE QUALITY ANALYST.OVEN ATTENDANT Work Phone: [facility] 09-21-2023 11:21-0400 Body temperature 97.81 [degF] Dalia Ezio SENIOR SOFTWARE QUALITY ANALYST.OVEN ATTENDANT Work Phone: [facility] 09-21-2023 11:21-0400 Body weight 82.64 kg Dalia Ezio SENIOR SOFTWARE QUALITY ANALYST.OVEN ATTENDANT Work Phone: [facility] 09-21-2023 11:21-0400 Diastolic blood pressure 68 mm[Hg] Dalia Ezio SENIOR SOFTWARE QUALITY ANALYST.OVEN ATTENDANT Work Phone: [facility] 09-21-2023 11:21-0400 Heart rate 94 /min Dalia Ezio SENIOR SOFTWARE QUALITY ANALYST.OVEN ATTENDANT Work Phone: [facility] 09-21-2023 11:21-0400 SaO2% (BldA) [Mass fraction] 97 % Dalia Holguin SENIOR SOFTWARE QUALITY ANALYST.OVEN ATTENDANT Work Phone: [facility] 09-21-2023 11:21-0400 Systolic blood pressure 112 mm[Hg] Dalia Holguin SENIOR SOFTWARE QUALITY ANALYST.OVEN ATTENDANT Work Phone: [facility] 09-25-2022 13:02-0400 Body height 175.[address] Delma Bland Work Phone: [facility] 09-25-2022 13:02-0400 Body mass index (BMI) [Ratio] 27.6 kg/m2 Dr. Delma Bland Work Phone: [facility] 09-25-2022 13:02-0400 Body weight 84.[address] Delma Bland Work Phone: [facility] 07-07-2021 16:03-0400 Body temperature 98 [degF] Dr. Delma Bland Work Phone: [facility] Work Phone: 07-07-2021 16:03-0400 Diastolic blood pressure 66 mm[Hg] Dr. Delma Bland Work Phone: [facility] Work Phone: 07-07-2021 16:03-0400 Heart rate 100 /min Dr. Delma Bland Work Phone: [facility] Work Phone: 07-07-2021 16:03-0400 Respiratory rate 16 /min Dr. Delma Bland Work Phone: [facility] Work Phone: 07-07-2021 16:03-0400 SaO2% (BldA) [Mass fraction] 97 % Dr. Delma Bland Work Phone: [facility] Work Phone: 07-07-2021 16:03-0400 Systolic blood pressure 138 mm[Hg] Dr. Delma Bland Work Phone: [facility] Work Phone: 05-13-2021 07:55-0400 Body temperature 98.4 [degF] Dr. Delma Bland Work Phone: [facility] Work Phone: 05-13-2021 07:55-0400 Diastolic blood pressure 63 mm[Hg] Dr. Delma Bland Work Phone: [facility] Work Phone: 05-13-2021 07:55-0400 Heart rate 68 /min Dr. Delma Bland Work Phone: [facility] Work Phone: 05-13-2021 07:55-0400 Respiratory rate 18 /min Dr. Delma Bland Work Phone: [facility] Work Phone: 05-13-2021 07:55-0400 SaO2% (BldA) [Mass fraction] 95 % Dr. Delma Bland Work Phone: [facility] Work Phone: 05-13-2021 07:55-0400 Systolic blood pressure 104 mm[Hg] Dr. eDlma Bland Work Phone: [facility] Work Phone: 05-13-2021 06:39-0400 Body height 175.[address] Delma Bland Work Phone: [facility] Work Phone: 05-13-2021 06:39-0400 Body mass index (BMI) [Ratio] 27.7 kg/m2 Dr. Delma Bland Work Phone: [facility] Work Phone: 05-13-2021 06:39-0400 Body weight 85.[address] Delma Bland Work Phone: [facility] Work Phone: 12-24-2016 15:28-0400 BMI (Body Mass Index) 27.4 kg/m2 Perez COYLE [facility] Work Phone: 12-24-2016 15:28-0400 Body Temperature 98.8 [degF] Perezchris [facility] Work Phone: 12-24-2016 15:28-0400 BP Diastolic 72 mm[Hg] Perezchris CO[facility] Work Phone: 12-24-2016 15:28-0400 BP Systolic 112 mm[Hg] Perezchris [facility] Work Phone: 12-24-2016 15:28-0400 Height 177.8 cm Perez Dyana [facility] Work Phone: 12-24-2016 15:28-0400 Pulse (Heart Rate) 63 /min Perez [facility] Work Phone: 12-24-2016 15:28-0400 Respiratory Rate 14 /min Perezchris [facility] Work Phone: 12-24-2016 15:28-0400 Weight 86.64 kg Perez Barreradivya [facility] Work Phone: Encounters Encounter Date Encounter Type Care Provider Facility Start: 09-25-2024 End: 09-25-[address] Delma Bland MD Work Phone: -Cat Scan [facility] Start: 09-25-2024 End: 09-25-[address] Sebastian Jose MD -Cat Scan [facility] Work Phone: Start: 09-25-2024 End: 09-25-2024 ambulatory Delma Bland Facility:[facility] Start: 07-13-2024 ambulatory Delma Bland Facilit y:[facility] Start: 07-13-[address] Fidencio Longo DO -Occupational Therapy Work Phone: Start: 07-05-2024 ambulatory Amadeo Longo Facili ty:[facility] Start: 07-05-2024 Non-patient / Non-visit Dr. Ana lauren MD -[facility] Start: 07-05-2024 End: 07-05-[address] Amadeo Longo DO -Pulmonary Services/Neurology Work Phone: Start: 07-05-2024 End: 07-05-2024 ambulatory Amadeo Longo Facility:[facility] Start: 06-08-2024 End: 06-08-[address] Delma Bland MD -Laboratory [facility] Start: 06-08-2024 End: 06-08-2024 ambulatory Delma Bland Facility:[facility] Start: 05-15-2024 End: 05-30-2024 Refill Dalia Ezio SENIOR SOFTWARE QUALITY ANALYST.OVEN ATTENDANT Work Phone: General Surgery Comment on above: Refill Request Start: 05-11-[address] Fidencio Longo DO -Occupational Therapy Work Phone: Start: 05-04-2024 End: 05-04-[address] Delma Bland MD Work Phone: [facility] Work Phone: Start: 05-04-2024 End: 05-04-[address] [facility] Start: 05-04-2024 End: 05-04-2024 ambulatory Delma Bland Facility:[facility] Start: 01-22-2024 End: 01-25-2024 Refill Dalia Ezio SENIOR SOFTWARE QUALITY ANALYST.OVEN ATTENDANT Work Phone: General Surgery Comment on above: Refill Request Start: 01-11-2024 End: 01-11-2024 ambulatory Delma Bland Facility:[facility] Start: 12-25-2023 End: 12-27-2023 Refill Dalia Ezio SENIOR SOFTWARE QUALITY ANALYST.OVEN ATTENDANT Work Phone: General Surgery Comment on above: Refill Request Start: 11-17-2023 End: 11-17-2023 Patient encounter procedure Rita Chaidez MD Work Phone: [facility] Comment on above: Renal cyst (Primary Dx) Start: 11-17-2023 End: 11-17-2023 ambulatory RITA CHAIDEZ JR Facility:[facility] Start: 10-06-2023 End: 10-06-2023 ambulatory DELMA Mor ADALBERTO Facility:[facility] Start: 10-06-2023 End: 10-06-2023 Patient encounter procedure Dalia Holguin SENIOR SOFTWARE QUALITY ANALYST.OVEN ATTENDANT Work Phone: General Surgery Comment on above: Gastroesophageal ref lux disease with esophagitis without hemorrhage (Primary Dx); Cyst of right kidney Start: 09-28-2023 End: 09-28-2023 ambulatory DELMA BLAND Facility:[facility] Start: 09-28-2023 End: 09-28-2023 Subsequent hospital visit by physician Michelle [facility] Work Phone: Cat Scan Comment on above: Pain of upper abdome n [R10.10] Start: 09-24-2023 End: 09-24-2023 ambulatory DALIA HOLGUIN Facility:[facility] Start: 09-24-2023 End: 09-24-2023 Subsequent hospital visit by physician Trice Montes MD Work Phone: Ambulatory Surgery Comment on above: Gastro-esophageal re flux disease without esophagitis [K21.9] Start: 09-21-2023 Telephone encounter Dalia Holguin APRN.OVEN ATTENDANT Work Phone: General Surgery Start: 09-21-2023 End: 09-21-2023 ambulatory DALIA HOLGUIN Facility:[facility] Start: 09-21-2023 End: 09-21-2023 Patient encounter procedure Dalia Ezio SENIOR SOFTWARE QUALITY ANALYST.OVEN ATTENDANT Work Phone: General Surgery Comment on above: Gastro-esophageal re flux disease without esophagitis (Primary Dx); Pain of upper abdomen; Throat clearing Start: 03-16-2023 End: 03-16-2023 ambulatory [facility] Work Phone: Start: 03-16-2023 End: 03-16-2023 Patient encounter procedure [facility] Work Phone: Start: 03-09-2023 End: 03-09-2023 ambulatory [facility] Work Phone: Start: 03-09-2023 End: 03-09-2023 Patient encounter procedure [facility] Start: 01-21-2023 End: 01-21-[address] Delma Bland Work Phone: [facility] Work Phone: Start: 01-21-2023 End: 01-21-[address] Delma Bland Work Phone: [facility] Start: 10-09-2022 End: 10-09-[address] Delma Bland Work Phone: [facility] Work Phone: Start: 10-03-2022 End: 10-03-[address] Delma Bland Work Phone: [facility] Work Phone: Start: 10-03-2022 End: 10-03-[address] Delma Bland Work Phone: [facility] Work Phone: Start: 09-25-2022 End: 09-25-[address] Delma Bland Work Phone: [facility] Start: 09-17-2022 End: 09-17-2022 ambulatory [facility] Work Phone: Start: 09-17-2022 End: 09-17-2022 Patient encounter procedure [facility] Start: 05-27-2022 End: 05-27-2022 ambulatory [facility] Work Phone: Start: 05-27-2022 End: 05-27-2022 Patient encounter procedure [facility] Start: 05-14-2022 End: 05-14-2022 ambulatory [facility] Work Phone: Start: 05-14-2022 End: 05-14-2022 Patient encounter procedure [facility] Start: 02-12-2022 End: 02-12-2022 Patient encounter procedure [facility] Start: 12-17-2021 Telephone encounter Fatou louise MD Work Phone: Neurology Comment on above: Patient Update (MRI results ) Start: 12-10-2021 Telephone encounter Neurology Provid er Neurology Comment on above: Appointment Reschedu led Start: 09-25-2021 End: 09-25-[address] Delma Bland Work Phone: [facility] Start: 08-29-2021 End: 08-29-[address] Delma Bland Work Phone: [facility] Start: 08-13-2021 End: 08-13-[address] Delma Bland Work Phone: [facility] Start: 07-07-2021 End: 07-07-[address] Delma Bland Work Phone: [facility] Start: 05-13-2021 Non-patient / Non-visit Dr. Viviana Bland Work Phone: [facility] Start: 05-13-2021 End: 05-13-2021 Admission to same day surgery center Dr. Delma Bland Work Phone: [facility]End[facility] Start: 04-28-2021 End: 04-28-[address] Delma Bland Work Phone: [facility] Start: 02-25-2021 End: 02-25-[address] Delma Bland Work Phone: [facility], [place] Start: 09-01-2016 End: 09-02-2016 Ambulatory [facility] Facility:[facility] Procedures Date Procedure Procedure Detail Performing [...] DTaP,Tdap,Td Vaccine (2 - Td or Tdap) [facility] Start: 11-22-2024 End: 11-22-2024 Patient encounter procedure 11/22/2024 1:00 PM EDT Office Visit [facility] [address] [place] [id number] Rita Chaidez Jr., MD [address] [place] [address] 1 year follow up, renal us prior [facility] Comment on above: 1 year follow up, re nal us prior Start: 11-16-2024 End: 12-16-2024 US Kidney - bilateral and Urinary bladder US KIDNEY/BLADDER Radiology Routine Renal cyst Expected: 11/16/2024, Expires: 12/16/2024 [facility] Work Phone: Comment on above: Expected: 11/16/2024 , Expires: 12/16/2024 Start: 11-16-2024 End: 11-16-2024 Patient encounter procedure 11/16/2024 1:00 PM EDT Appointment Radiology [address] [place], [place] [id number] Renal cyst [N28.1] Radiology Comment on above: Renal cyst [N28.1] Start: 02-23-2024 Advance Directive Discussion Advance Directive Discussion [facility] Start: 10-24-2023 Covid-19 Vaccine ( season) Covid-19 Vaccine ( season) [facility] Start: 10-24-2023 Influenza vaccination Influenza Vacc ine (#1) [facility] Start: 10-06-2023 End: 10-06-2023 Patient encounter procedure 10/06/2023 10:00 AM EDT Office Visit General Surgery [address] [place], [place] [id number] Dalia Holguin APRN.OVEN ATTENDANT [address] [place], [place] [id number] 09-23 EGD follow up General Surgery Comment on above: 09-23 EGD follow up Start: 09-28-2023 End: 09-28-2023 Patient encounter procedure Cat Scan Comment on above: Pain of upper abdome n [R10.10] Start: 09-24-2023 End: 09-24-2023 Patient encounter procedure 09/24/2023 2:00 PM EDT Appointment Ambulatory Surgery [address] [place], [place] [id number] Trice Montes MD [address] [place] [phone] Ambulatory Surgery Start: 09-24-2023 Subsequent hospital visit by physician 09/24/2023 11:54 AM EDT Hospital Encounter Ambulatory Surgery [address] [place], [place] [id number] Trice Montes MD [address] [place] [id number] Gastro-esophageal reflux disease without esophagitis [K21.9] Ambulatory Surgery Comment on above: Gastro-esophageal re flux disease without esophagitis [K21.9] Start: 05-27-2023 Covid-19 Vaccine ( season) Covid-19 Vaccine ( season) [facility] Start: 02-22-2023 Advance Directive Discussion Advance Directive Discussion [facility] Start: 12-14-2022 RSV Vaccine (1 - 1-d ose 75+ series) RSV Vaccine (1 - 1-dose 75+ series) [facility] Start: 10-09-2022 Patient referral [facility] Work Phone: Start: 10-23-2021 Influenza vaccination INFLUENZA (#1) [facility] Start: 05-13-2021 Colonoscopy w/biopsy single/multiple COLONOSCOPY AND BIOPSY [facility] Work Phone: Start: 05-13-2021 Patient [facility] Work Phone: Start: 02-22-2021 ADVANCE DIRECTIVE DISCUSSION ADVANCE DIRECTIVE DISCUSSION [facility] Start: 02-22-2021 DEPRESSION ASSESSMENT DEPRESSION ASS ESSMENT [facility] Start: 12-24-2016 End: 12-24-2016 Appointment Appointment [facility] Work Phone: Start: 12-24-2016 End: 12-24-2016 Chest x-ray X-Ray, Chest, PA & Lateral [facility] Work Phone: Start: 12-14-2012 PNEUMOCOCCAL: 65+ (1 - PCV) PNEUMOCOCCAL: 65+ (1 - PCV) [facility] Start: 2007 RSV Vaccine (1 - 1-d ose 60+ series) RSV Vaccine (1 - 1-dose 60+ series) [facility] Start: 12-14-1997 SHINGRIX VACCINE (1 of 2) SHINGRIX VACCINE (1 of 2) [facility] Start: 12-14-1992 COLOGUARD (FIT-DNA) COLOGUARD (FIT-D NA) [facility] Start: 12-14-1992 Colonoscopy COLONOSCOPY [facility] Start: 12-14-1992 COLORECTAL CANCER SCREENING COLORECTAL CANCER SCREENING [facility] Start: 12-14-[address] COLONOGRAPHY [facility] Start: 12-14-1992 DIABETES SCREEN DIABETES SCREEN [facility] Start: 12-14-1992 Diabetes Screening Diabetes Screenin g [facility] Start: 12-14-1992 FECAL OCCULT BLOOD FECAL OCCULT BLOO D [facility] Start: 12-14-1992 Screening for malign ant neoplasm of colon [facility] Start: 12-14-1992 SIGMOIDOSCOPY SIGMOIDOSCOPY [facility] Start: 12-14-1982 Lipid panel Lipid Screening [facility] Start: 12-14-1982 LIPID SCREEN LIPID SCREEN [facility] Start: 12-14-1966 Urine microalbumin profile DTAP,TDAP,TD (1 - Tdap) [facility] Start: 12-14-1965 Anxiety Screening Anxiety Screening [facility] Start: 12-14-1965 Depression Screening Depression Scre ening [facility] Start: 12-14-1965 HEPATITIS C SCREENING HEPATITIS C [facility] Start: 12-14-1965 Hepatitis C screening Hepatitis C [facility] Start: [birth year]-14-1946 COVID-19 VACCINE (#1) COVID-19 VACCI NE (#1) [facility] End: 10-20-2024 CT Abdomen and Pelvis W contrast IV CT ABD/PEL W IVCON Radiology Routine Pain of upper abdomen 1 Occurrences starting 09/21/2023 until 10/20/2024 [facility] Comment on above: 1 Occurrences starti ng 09/21/2023 until 10/20/2024 CT Abdomen and Pelvi s W contrast IV CT ABD/PEL W IVCON Radiology Routine Pain of upper abdomen 09/28/2023 2:39 PM EDT [facility] Work Phone: End: 09-20-2024 EGD DIAGNOSTIC EGD DIAGNOSTIC Endoscopy Routine Gastro-esophageal reflux disease without esophagitis 1 Occurrences starting 09/21/2023 until 09/20/2024 [facility] Work Phone: Comment on above: 1 Occurrences starti ng 09/21/2023 until 09/20/2024 Patient referral [facility] Work Phone: SURGICAL PATHOLOGY [facility] Work Phone: Comment on above: Release Upon Orderin g for 1 Occurrences starting 09/24/2023, 1 completed [facility] c Immunizations Immunization Date Immunization Notes Care Provider Fa [facility] 01-25-2023 influenza virus vaccine, unspecified formulation Dalia Holguin APRN.OVEN ATTENDANT Work Phone: [facility] 05-21-2020 Covid (Pfizer) Dr. Delma To nner Work Phone: [facility] 04-30-2020 Covid (Pfizer) Dr. Delma To nner Work Phone: [facility] Payers Date Payer Category Payer Self-pay [id number] 2012 Medicare [id number] 2012 Private Health Insurance [id number] 2012 Medicare [id number] 2012 Private Health Insurance [id number] Medicare [id number] Unknown [id number] 2.16.8 [id number] Unknown 1944 2.16.8 [id number] Unknown [id number] 2.16.8 [id number] Unknown [id number] 2.16.8 [id number] Unknown [id number] 2.16.8 [id number] Unknown [id number] 2.16.8 [id number] Unknown [id number] 2.16.8 [id number] Social History Date Type Detail Facility Start: 05-07-2021 End: 10-09-2022 Tobacco smoking status SCIS Unknown if ever smoked [facility] Work Phone: Start: 02-08-2018 [facility]smoker [facility] Start: 1945 Sex Assigned At Male [facility] Start: 10-09-2022 End: 09-20-2023 Tobacco smoking status NHIS Ex-smoker [facility] Start: 02-22-1961 End: 02-23-1968 History of tobacco use Current smoker [facility] Start: 02-22-1961 End: 02-23-1968 History of tobacco use Cigarette Smoker [facility] Start: 09-20-2023 End: 09-21-2023 Cigarettes smoked current (pack per day) - Reported 2 [facility] Start: 09-21-2023 End: 11-17-2023 Alcohol intake Current drinker of alcohol (finding) [facility] Start: 09-21-2023 End: 11-17-2023 Tobacco use panel [facility] National Score (1-10 0), lower number is lower risk 41 [facility] Start: 09-20-2023 Alcohol Comment 2-3 drinks per week. [facility] Start: 11-13-2021 Gender identity Identifies as male gender (finding) [facility] Start: 05-14-2024 Sex Male (finding) [facility] Goals Date Patient Goal Desired Activity /State Mental Status Date Assessment Result Facility 05-13-2021 Cognitive function Awake;Drowsy [facility] Work Phone: Clinical Notes 12-10-2021 to 09-25-2024 Rtia Chaidez Jr., MD - 11/17/2023 1:29 PM Dalia Toscano APRN.OVEN ATTENDANT - 10/06/2023 10:00 AM Kayla Mcghee RT(R) - 09/28/2023 2:20 PM EDT Note Date & Type Note Facility 09-25-2024 Radiology Diagnostic study note [facility] Imaging Services [address] [place], [place] [id number] Chest without Contrast MR#: [id number] Acct: [id number] Name: SILVIA NICOLE II Rep #: [id number] : 1945 M 78 From: Jose Holguin MD PCP: Dr. Delma Bland MD Status: RE G CLI Study:Chest without Contrast Date of Exam: 09/25/24 Exam# [id number] Ordering Dr: Sebastian Jose MD PROCEDURE: CHEST [...] at the left lung base. Reading [facility] CC: Dr. Delma Bland MD; Dr. Sebastian Jose MD ~ Circulation Director: Signed [facility] 11-17-2023 Note HNO ID: [id number] Author: RITA CHAIDEZ JR, MD Service: ? [...] prior Rita Chaidez Jr, MD [facility] 11-17-2023 History of Presen t illness [...] Chaidez Jr, MD documented in this encounter [facility] 10-06-2023 History of Presen t illness Narrative FOLLOW UP VISIT - ENDOSCOPY Silvia Nicole II 1945 [id number] REFERRING PHYSICIAN: Trice Motnes [address] [facility] [address] Silvia Nicole II is a patient I [...] to the office as needed Dalia Holguin APRN.OVEN ATTENDANT documented in this encounter [facility] 10-06-2023 Note HNO ID: [id number] Author: DALIA HOLGUIN APRN.LEELEE Service: ? Author Type: Nurse Practitioner Type: Progress Notes Filed: 10/06/2023 11:29 Note Text: FOLLOW UP VISIT - ENDOSCOPY Silvia Nicole II 1945 [id number] REFERRING PHYSICIAN: Trice Montes [address] [facility] [address] Silvia Nicole II is a patient I [...] the office as needed Dalia Holguin APRN.LEELEE [facility] 09-28-2023 History of Presen t illness Narrative [...] PATIENT PRESENTS WITH AN IMPLANTABLE OR ATTACHED SENIOR TECHNOLOGIST: No ALLERGIES: Reviewed and unchanged CONTRAST ALLERGY: [...] TIME: 2:45 PM documented in this encounter [facility] 09-28-2023 Note HNO ID: [id number] Author: KAYLA CABRERA RT(R) Service: ? Author Type: Plastics Engineering Teacher Type: Progress Notes Filed: 09/28/2023 14:46 Note [...] PATIENT PRESENTS WITH AN IMPLANTABLE OR ATTACHED SENIOR TECHNOLOGIST: No ALLERGIES: Reviewed and unchanged CONTRAST ALLERGY: [...] DATE: September 28, 2023 TIME: 2:45 PM [facility] 09-24-2023 Attending History and physical note UPDATED [...] (FLONASE) 50 mcg/actuation nasal spray Use 1 [place] in each nostril once daily. No current [...] and reviewed by me Nursing Notes: Tangela aNva RN 09/21/2023 12:20 PM Signed REVIEW OF [...] were answered. Silvia chooses IV conscious sedation iSlvia was counseled that if there are changes [...] upper abdomen (R09.89) Throat clearing Dalia Holguin APRN.OVEN ATTENDANT [facility] 09-24-2023 History and physical note HISTORY [...] (FLONASE) 50 mcg/actuation nasal spray Use 1 [place] in each nostril once daily. No current [...] entered by the nurse and reviewed by pr Nursing Notes: Tangela Nava RN 09/21/2023 12:20 [...] upper abdomen (R09.89) Throat clearing Dalia Holguin APRN.OVEN ATTENDANT [facility] 09-24-2023 History and physical note UPDATED [...] (FLONASE) 50 mcg/actuation nasal spray Use 1 [place] in each nostril once daily. No current [...] upper abdomen (R09.89) Throat clearing Dalia Holguin APRN.OVEN ATTENDANT HISTORY AND PHYSICAL Silvia Nicole II : [...] (FLONASE) 50 mcg/actuation nasal spray Use 1 [place] in each nostril once daily. No current [...] upper abdomen (R09.89) Throat clearing Dalia Holguin APRN.OVEN ATTENDANT documented in this encounter [facility] 09-24-2023 Note Formatting of this n ote might be different from the original. The patient received a copy of EGD discharge instructions that contain information for how to contact the physician who performed the procedure and when to seek medical care. Brenda Landa RN [facility] 09-24-2023 Miscellaneous Notes The patient received a copy of EGD discharge instructions that contain information for how to contact the physician who performed the procedure and when to seek medical care. Brenda Landa RN documented in this encounter [facility] 09-24-2023 Nurse Note Arrived in phase II via cart. Left lateral position. Sedated, but responds to verbal stimuli. Color normal; skin warm and dry. Respirations wnl and unlabored. Abdomen soft and with + bowel sounds in quads X 4. Patient resting comfortably. Family at bedside. Brenda Landa RN [facility] 09-24-2023 Nurse Note Arrived in phase II via cart. Left lateral position. Sedated, but responds to verbal stimuli. Color normal; skin warm and dry. Respirations wnl and unlabored. Abdomen soft and with + bowel sounds in quads X 4. Patient resting comfortably. Family at bedside. Brenda Landa RN documented in this encounter [facility] 09-23-2023 Telephone encounter Note View External Labs - CBC, CMP, TSH, T4, Lipid, Liver from [facility] [ID [id number]] [facility] 09-23-2023 Miscellaneous Notes View External Labs - CBC, CMP, TSH, T4, Lipid, Liver from [facility] [ID [id number]] Can we please request recent lab work done through Dr. Goldsmith office? Specifically looking for a CMP/BMP with creat & GFR prior to CT with contrast. ThanksDalia APRN.OVEN ATTENDANT documented in this encounter [facility] 09-21-2023 Nurse Note REVIEW OF SYSTEMS: [...] Colonoscopy: 2021 or 2022 Tangela Nava RN [facility] 09-21-2023 Nurse Note REVIEW OF SYSTEMS: [...] Tangela Nava RN documented in this encounter [facility] 09-21-2023 Telephone encounter Note Can we please request recent lab work done through Dr. Goldsmith office? Specifically looking for a CMP/BMP with creat & GFR prior to CT with contrast. Thanks, Dalia Holguin APRN.OVEN ATTENDANT [facility] Work Phone: 09-21-2023 History of Presen [...] (FLONASE) 50 mcg/actuation nasal spray Use 1 [place] in each nostril once daily. No current [...] entered by the nurse and reviewed by pr Nursing Notes: Tangela Nava RN 09/21/2023 12:20 [...] Dalia Holguin APRN.LEELEE documented in this encounter [facility] 09-21-2023 Note HNO ID: [id number] Author: DALIA HOLGUIN APRN.CNP Service: ? Author [...] (FLONASE) 50 mcg/actuation nasal spray Use 1 [place] in each nostril once daily. No current [...] entered by the nurse and reviewed by pr Nursing Notes: Tangela Nava RN 09/21/2023 12:20 [...] cardiac stent, de (more content not included)... [facility] 12-17-2021 Miscellaneous Notes The patient hasn't been seen by the provider. The patient is scheduled for a new patient appointment on 01/22/22. Please provide the medical records for the patient's appointment. Received MRI Brain with and without contrast from [facility]. Paperwork sent to Dr. Siu for review. For pt 01/22/22 apt. documented in this encounter [facility] 12-10-2021 Miscellaneous Notes Left the patient a voice message, mailed a reminder, and sent my chart message about the canceled appointment and new appointment. documented in this encounter [facility] Evaluation note Diagnosis Onset Date Family history of colon cancer in father acute Personal history of colonic polyps acute [facility] Work Phone: Evaluation note* Diagnosis Onset Date Resolution Status Family history of colon cancer in father acute Personal history of colonic polyps acute Contact with or suspected ex posure to other viral communicable disease acute [facility] Work Phone: Evaluation note* Diagnosis Onset Date Resolution Status Contact with or suspected ex posure to other viral communicable disease acute [facility] Work Phone: Evaluation noteNo assessment information available [facility] Work Phone: Evaluation note* Diagnosis Onset Date Resolution Status S/P lumbar and lumbosacral fusion by anterior techniqu e acute [facility] Work Phone: Evaluation note* Diagnosis Onset Date Resolution Status S/P lumbar and lumbosacral fusion by anterior techniqu e acute Trochanteric bursitis of left hip acute [facility] Work Phone: Evaluation note* Diagnosis Gastro-esophageal reflux disease without esophagitis- Primary Esophageal reflux Pain of upper abdomen Abdominal pain, other specified site Throat clearing Other symptoms involving head and neck [facility] Diagnosis Heartburn- Primary Gastro-esophageal reflux disease without esophagitis Esophageal reflux [facility] Diagnosis Pain of upper abdomen Abdominal pain, other specified site [facility] Diagnosis Gastroesophageal reflux disease with esophagitis without hemorrhage- Primary Cyst of right kidney Unspecified congenital cystic kidney disease [facility] Diagnosis Renal cyst- Primary Unspecified congenital cystic kidney disease documented in this encounter [facility] for referral (narrative)* Outpatient Procedure (Routine) - Closed Specialty Diagnoses / Procedures Referred By Arnold t Referred To Contact [facility] Diagnoses Gastro-esophageal reflux disease without esophagitis Procedures EGD DIAGNOSTIC ESOPHAGOGASTRODUODENOSC OPY TRANSORAL DIAGNOSTIC Dalia Holguin APRN.OVEN ATTENDANT [address] [place] [address] [facility] [address] [place] [address] Referral ID Status Reason Start Date Expiration Date V isits Requested Visits Authorized [id number] Closed Auto-Generate d Referral 09/21/2023 02/22/2024 1 1 [facility] for referral (narrative)* Diagnostic Procedure Only (Routine) - Authorized Specialty Diagnoses / Procedures Referred By Arnold maya Referred To Contact [facility] Diagnoses Renal cyst Procedures US KIDNEY/BLADDER US RETROPERITONEAL REAL TIME W/IMAGE COMPLETE Rita Chaidez Jr., MD [facility] [place] [address] [place] [address] Referral ID Status Reason Start Date Expiration Date Visits Requested Visits Authorized [id number] Authorized Auto-Generat ed Referral 11/16/2024 12/16/2024 1 1 [facility] for referral (narrative)No reason for referral information [facility]: Reason for visit Narrative* Outpatient Procedure (Routine) - Closed Specialty Diagnoses / Procedures Referred By Arnold t Referred To Contact [facility] Diagnoses Gastro-esophageal reflux disease without esophagitis Procedures EGD DIAGNOSTIC ESOPHAGOGASTRODUODENOSC OPY TRANSORAL DIAGNOSTIC Dalia Holguin APRN.CNP [address] [place] [address] [facility] [place] [address] Referral ID Status Reason Start Date Expiration Date V isits Requested Visits Authorized [id number] Closed Auto-Generate d Referral 09/21/2023 02/22/2024 1 1 [facility] Summary Purpose Family History No Family History Records Found Relationship Condition Age at Onset Recorded Date/T james Not Specified Malignant neoplasm Unknown son Cardiac disease Unknown Advance Directives No Advanced Directives Records Found Advance Directive Response Recorded Date/ Time Advance Directives Yes August 19 6:59am Living Will Yes May 07, 2021 1:47pm Power of Field Support Engineer Yes May 07 1:47pm Advance Directive Response Recorded Date/ Time Name of Medical Power of Field Support Engineer May 07, 2021 1:47pm Advance Directives Yes August 19 6:59am Living Will Yes May 07, 2021 1:47pm Power of Field Support Engineer Yes May 07 1:47pm Advance Directive Response Recorded Date/ Time Advance Directives Yes August 19 5:59am Living Will Yes May 07, 2021 12:47pm Power of Field Support Engineer Yes May 07 12:47pm Advance Directive Response [...] CT ABD & PELVIS W/CONTRAST Dalia Holguin APRN.OVEN ATTENDANT [address] [place] [address] [place] [id number] Referral ID Status Reason Start Date Expiration Date Visits Requested Visits Authorized [id number] Pending Review Auto-Generat ed Referral 09/21/2023 10/20/2024 1 1 Specialty Diagnoses / Procedures Referred By Arnold t Referred To Contact [facility] Diagnoses Gastro-esophageal reflux disease without esophagitis Procedures EGD DIAGNOSTIC ESOPHAGOGASTRODUODENOSC OPY TRANSORAL DIAGNOSTIC Dalia Holguin APRN.OVEN ATTENDANT [address] [place] [address] [facility] [address] [place] [address] Referral ID Status Reason Start Date Expiration Date Visits Requested Visits Authorized [id number] Authorized Auto-Generat ed Referral 09/21/2023 02/22/2024 1 1 Specialty Diagnoses / Procedures Referred By Arnold maya Referred To Contact Nephrology Diagnoses Cyst of right kidney Procedures CONSULT TO NEPHROLOGY OFFICE/OUTPATIENT [facility] 60 MINUTES Dalia Holguin APRN.OVEN ATTENDANT [address] [place] [address] Referral ID Status Reason Start Date Expiration Date Visits Requested Visits Authorized [id number] Authorized PCP Requested Referral 10/06/2023 10/05/2024 1 1 Additional Source Comments (unrecognized sect ion and content) No Status Records FoundNo Status Records FoundNo Status Records FoundNo Status Records Found INFORMATION SOURCE (unrecogn ized section and content) DATE CREATED AUTHOR 08/18/2017 [facility] DATE CREATED AUTHOR AUTHOR'S ORGANIZ ATION 10/08/2023 [facility] DATE CREATED AUTHOR AUTHOR'S ORGANIZ ATION 11/20/2023 [facility] DATE CREATED AUTHOR AUTHOR'S ORGANIZ ATION 10/01/2024 [facility] Goals (unrecognized section and content) Goals [...] or prosecute any alcohol or drug abuse patient.[facility] the event this information is protected by the Federal Confidentiality of Alcohol and Drug Abuse Patient Records regulations: The Federal rules restrict any use of the information to criminally investigate or prosecute any alcohol or drug abuse patient.[facility] the event this information is protected by the Federal Confidentiality of Alcohol and Drug Abuse Patient Records regulations: The Federal rules restrict any use of the information to criminally investigate or prosecute any alcohol or drug abuse patient.[facility] the event this information is protected by the Federal Confidentiality of Alcohol and Drug Abuse Patient Records regulations: The Federal rules restrict any use of the information to criminally investigate or prosecute any alcohol or drug abuse patient.[facility] the event this information is protected by the Federal Confidentiality of Alcohol and Drug Abuse Patient Records regulations: The Federal rules restrict any use of the information to criminally investigate or prosecute any alcohol or drug abuse patient.[facility] the event this information is protected by the Federal Confidentiality of Alcohol and Drug Abuse Patient Records regulations: The Federal rules restrict any use of the information to criminally investigate or prosecute any alcohol or drug abuse patient.[facility] the event this information is protected by the Federal Confidentiality of Alcohol and Drug Abuse Patient Records regulations: The Federal rules restrict any use of the information to criminally investigate or prosecute any alcohol or drug abuse patient.[facility] the event this information is protected by the Federal Confidentiality of Alcohol and Drug Abuse Patient Records regulations: The Federal rules restrict any use of the information to criminally investigate or prosecute any alcohol or drug abuse patient.[facility] the event this information is protected by the Federal Confidentiality of Alcohol and Drug Abuse Patient Records regulations: The Federal rules restrict any use of the information to criminally investigate or prosecute any alcohol or drug abuse patient.[facility] the event this information is protected by the Federal Confidentiality of Alcohol and Drug Abuse Patient Records regulations: The Federal rules restrict any use of the information to criminally investigate or prosecute any alcohol or drug abuse patient.[facility] the event this information is protected by the Federal Confidentiality of Alcohol and Drug Abuse Patient Records regulations: The Federal rules restrict any use of the information to criminally investigate or prosecute any alcohol or drug abuse patient.[facility] the event this information is protected by the Federal Confidentiality of Alcohol and Drug Abuse Patient Records regulations: The Federal rules restrict any use of the information to criminally investigate or prosecute any alcohol or drug abuse patient.[facility] Reason for Visit (unrecogniz ed section and content) Reason Comments Appointment Rescheduled Reason Comments Patient Update MRI results Reason Comments Consult 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 Reason Comments Radiology CT Specialty Diagnoses / Procedures Referred By Arnold maya Referred To Contact CT IMAGING Diagnoses Pain of upper abdomen Procedures CT ABD/PEL W IVCON CT ABD & PELVIS W/CONTRAST Dalia Holguin APRN.OVEN ATTENDANT [address] [place] [address] Ct Imaging [facility] Referral ID Status Reason Start Date Expiration Date V isits Requested Visits Authorized [id number] Closed Auto-Generate d Referral 09/21/2023 10/20/2024 1 1 Reason Comments Follow Up Review EGD results, review CT scan results. Reason Comments Renal Cyst Reason Comments Refill Request Care Teams (unrecognized sec tion and content) Blender Relationship Specialty Start Date End Date Delma Bland [address] [place], [place] [address] PCP - General Family Medicine 9/14/22 Blas Oseguera [address] [place], [place] [address] Referring Ent - Otolaryngology 11/05/21 Blender Relationship Specialty Start Date End Date Delma Bland [address] [facility] [address] [place], [place] [address] PCP - General Family Medicine 11/05/21 Blas Oseguera [address] [place], [place] [address] Referring Ent - Otolaryngology 11/05/21 Team Status: [...] DO Attending Provider, Referring P chavo Active Blender Relationship Specialty Start Date End Date Delma Bland MD [address] [facility] [address] [place], [place] [address] PCP - General Family Medicine 11/05/21 Blas Oseguera [address] [place] [address] Referring Ent - Otolaryngology 11/05/21 Blender Relationship Specialty Start Date End Date Delma Bland MD [address] [facility] [address] [place], [place] [address] PCP - General Family Medicine 11/05/21 Blas Oseguera [address] [facility] [place], [place] [address] [phone] Referring Ent - Otolaryngology 11/05/21 Blender Relationship Specialty Start Date End Date Delma Bland MD [address] [facility] [address] [place], [place] [address] PCP - General Family Medicine 11/05/21 Blas Oseguera [address] [facility] [place] [address] Referring Ent - Otolaryngology 11/05/21 Blender Relationship Specialty Start Date End Date Delma Bland MD [address] [facility] [address] [place], [place] [address] PCP - General Family Medicine 11/05/21 Blas Oseguera [address] [facility] [place], [place] [address] [phone] Referring Ent - Otolaryngology 11/05/21 Blender Relationship Specialty Start Date End Date Delma Bland MD [address] [facility] [address] [place], [place] [address] PCP - General Family Medicine 11/05/21 Blas Oseguera [address] [facility] [place], [place] [address] [phone] Referring Ent - Otolaryngology 11/05/21 Blender Relationship Specialty Start Date End Date Delma Bland MD [address] [place], [place] [address] PCP - General Family Medicine 11/05/21 Blas Oseguera [address] [place] [address] Referring Ent - Otolaryngology 11/05/21 Team Status: [...] BE BASED ON THE PRIMARY CLINICAL RECORDS. [employer] provides no warranty or guarantee of the accuracy or completeness of information in this document.
== END | disposition home or self-care (01) ==
LOC: LABSPEC 15:35
PROVIDERS: PCP Family Medicine; Referring Provider Student in an Organized Health Care Education/Training Program; Visit Provider Student in an Organized Health Care Education/Training Program
DX: M67.471 Ganglion, right ankle and foot (principal)
CPT/HCPCS: 88304

== ENCOUNTER → 2024-11-03 | Outpatient (CLI) | payer MEDICARE, OTHER, SELFPAY ==
[2024-11-03 16:34] LABS: Iron 93 ug/dL (65-175); Iron Binding Capacity,Total 257 ug/dL (250-450); Iron Binding Capacity,Unsat 164 ug/dL (228-428); Vitamin B12 235 pg/mL (180-914)
== END | disposition home or self-care (01) ==
LOC: MFPLAB 11:07
PROVIDERS: PCP Family Medicine; Referring Provider Family Medicine; Visit Provider Family Medicine
DX: D64.9 Anemia, unspecified (principal)
CPT/HCPCS: 82607; 83540; 83550

== ENCOUNTER → 2024-11-24 | Outpatient (CLI) | payer MEDICARE, OTHER, SELFPAY ==
--- NOTE | 2024-11-24 08:35 | RAD_ITS ---
PROCEDURE: FLUOROSCOPY 1 HR OR LESS 11/24/2024 REASON FOR EXAM: Short of breath TECHNIQUE: Procedure Code: RADFL Modality: DX Procedure: FLUOROSCOPY 1 HR OR LESS Fluoroscopy time: 48 seconds Total dose: 23.8 mGy COMPARISON: None FINDINGS: Sniff test was performed demonstrating paralyzed left hemidiaphragm which is elevated. RAD/Fluoroscopy 1 Hr or Less IMPRESSION: Elevated and paralyzed left hemidiaphragm. Reading Location: [place] [id number]
== END | disposition home or self-care (01) ==
LOC: RAD 08:25
PROVIDERS: PCP Family Medicine; Referring Provider Internal Medicine Pulmonary Disease; Visit Provider Internal Medicine Pulmonary Disease
DX: R06.00 Dyspnea, unspecified (principal)
CPT/HCPCS: 76000

== ENCOUNTER → 2025-01-08 | Outpatient (CLI) | payer MEDICARE, OTHER, SELFPAY ==
[2025-01-08 12:25] LABS: Hematocrit 41.3 % (40-54); Hemoglobin 13.4 g/dL (13.0-16.5); Immature Granulocytes Count 0.010 X10^3/uL (0.0-0.0); Mean Corp Hgb Conc 32.4 g/dL (32-36); Mean Corpuscular Volume 102.5 fL (80-94); Mean Platelet Vol. 11.5 fl (6.2-12.0); NRBC Flagged by Analyzer 0 % (0-5); Platelet Count 170 K/mm3 (150-450); RBC Distribution Width CV 11.9 % (11.6-14.6); RBC Distribution Width SD 45.4 fl (35.1-43.9); Red Blood Count 4.03 M/mm3 (4.6-6.2); White Blood Count 5.8 K/mm3 (4.4-11.0)
[2025-01-08 13:07] LABS: AST(SGOT) 28 U/L (<=37); Alanine Aminotransfer ALT/SGPT 16 U/L (<=46); Albumin, Serum 4.4 g/dL (3.4-4.8); Alkaline Phosphatase 64 U/L (40-129); Anion Gap 12 (5-15); BUN 17 mg/dL (4-19); BUN/Creat Ratio 16.7 RATIO (10-20); Calcium,Total 9.6 mg/dL (7.6-11.0); Carbon Dioxide 24.5 mmol/L (21.0-32.0); Chloride 103 mmol/L (98-108); Cholesterol 159 mg/dL (<=200); Globulin 2.8 g/dL (2.2-4.2); Glucose 99 mg/dL (70-99); Low Density Lipoprotein Calc. 94 mg/dL; Potassium 4.3 mmol/L (3.3-5.1); Triglycerides 84 mg/dL; Very Low Density Lipoprotein 17 mg/dL (5-40); cholesterol:hdl ratio screen 3.23
== END | disposition home or self-care (01) ==
LOC: MFPLAB 10:59
PROVIDERS: PCP Family Medicine; Visit Provider Family Medicine
DX: E03.8 Other specified hypothyroidism (principal); E78.5 Hyperlipidemia, unspecified; R73.02 Impaired glucose tolerance (oral)
CPT/HCPCS: 36415; 80053; 80061; 83036; 84439; 84443; 85025